=== PATIENT | male | born 1950 | race Caucasian/White ===

== ENCOUNTER 2024-05-14 06:51 | Outpatient (OUT) | payer MEDICARE, OTHER, SELFPAY ==
[2024-05-14 07:34] LABS: Basophils Absolute Auto 0.1 10^3/uL (0.0-0.1); Basophils Percent Auto 0.9 % (0.2-2.0); Eosinophils Absolute Auto 0.4 10^3/uL (0.0-0.7); Eosinophils Percent Auto 5.3 % (0.9-7.0); Hematocrit 44.6 % (42.0-54.0); Hemoglobin 14.6 g/dL (14.0-18.0); Immature Granulocytes Abs Auto 0.02 10^3/uL (0.00-0.03); Immature Granulocytes Pct Auto 0.2 % (0.0-0.5); Lymphocytes Absolute Auto 2.5 10^3/uL (1.2-3.8); Mean Corpuscular HGB Conc 32.7 g/dL (29.9-35.2); Mean Corpuscular Volume 100.9 fL (80.0-94.0); Mean Platelet Volume 9.8 fL (9.5-13.5); Monocytes Percent Auto 12.8 % (1.7-12.0); Neutrophils Absolute Auto 4.1 10^3/uL (1.4-6.5); Neutrophils Percent Auto 49.8 % (43.0-75.0); Platelet Count 298 10^3/uL (150-450); Red Blood Count 4.42 10^6/uL (4.70-6.10); Red Cell Distribution Width 13.2 % (11.0-15.0); White Blood Count 8.1 10^3/uL (4.0-11.0)
[2024-05-14 08:45] LABS: Estimated Average Glucose 108 mg/dL; Glycohemoglobin A1C 5.4 % (4.5-6.2)
[2024-05-14 09:29] LABS: Alanine Aminotransferase 25 U/L (16-63); Albumin Globulin Ratio 0.8; Albumin Level 3.7 g/dL (3.4-5.0); Alkaline Phosphatase 76 U/L (46-116); Aspartate Amino Transferase 16 U/L (15-37); BUN Creatinine Ratio 20.4; Bilirubin Total 0.7 mg/dL (0.2-1.0); Calcium 9.1 mg/dL (8.5-10.1); Carbon Dioxide 28.4 mmol/L (21.0-32.0); Chloride 105 mmol/L (98-107); Chol HDL Ratio 2.5; Cholesterol 146 mg/dL (<=200); Estimated GFR (African America >60 (>=60); Estimated GFR (Non-African Ame >60 (>=60); Free T3 2.92 pg/mL (2.18-3.98); Globulin 4.4 g/dL; Glucose 101 mg/dL (74-106); HDL Cholesterol 58 mg/dL (40-60); LDL Cholesterol Calculated 65.8 mg/dL; Potassium 4.4 mmol/L (3.5-5.1); Sodium 142 mmol/L (136-145); Thyroid Stimulating Hormone 1.505 uIU/mL (0.358-3.740); Total Protein 8.1 g/dL (6.4-8.2); Triglycerides 111 mg/dL (<=150); VLDL CHOLESTEROL 22.2 mg/dL
[2024-05-14 09:39] LABS: Free T4 0.89 ng/dL (0.76-1.46)
[2024-05-14 14:45] LABS: Internal Control Within Normal Limits; Occult Blood Negative
[2024-05-15 01:07] LABS: PSA, Free <0.02 ng/mL; Prostate Specific Ag <0.1 ng/mL (0.0-4.0)
== END 2024-05-14 06:52 | disposition home or self-care (01) ==
LOC: LAB 06:57
PROVIDERS: PCP Family Medicine; Visit Provider Family Medicine
DX: Z01.89 Encounter for other specified special examinations (principal); R53.83 Other fatigue; I10 Essential (primary) hypertension; E78.5 Hyperlipidemia, unspecified; R73.09 Other abnormal glucose; Z12.12 Encounter for screening for malignant neoplasm of rectum
CPT/HCPCS: 36415; 80053; 80061; 83036; 84153; 84154; 84439; 84443; 84481; 85025; G0328

== ENCOUNTER 2024-10-26 09:30 | Outpatient (OUT) | payer MEDICARE, OTHER, SELFPAY ==
[2024-10-26 10:05] LABS: Ammonia 25 umol/L (11-32)
[2024-10-26 10:19] LABS: Basophils Absolute Auto 0.1 10^3/uL (0.0-0.1); Basophils Percent Auto 0.7 % (0.2-2.0); Eosinophils Absolute Auto 0.2 10^3/uL (0.0-0.7); Eosinophils Percent Auto 1.7 % (0.9-7.0); Hematocrit 45.4 % (42.0-54.0); Immature Granulocytes Abs Auto 0.22 10^3/uL (0.00-0.03); Immature Granulocytes Pct Auto 1.9 % (0.0-0.5); Lymphocytes Percent Auto 17.7 % (20.5-60.0); Mean Corpuscular HGB Conc 30.8 g/dL (29.9-35.2); Mean Corpuscular Hemoglobin 31.6 pg (25.9-34.0); Mean Corpuscular Volume 102.5 fL (80.0-94.0); Monocytes Absolute Auto 0.9 10^3/uL (0.3-0.8); Monocytes Percent Auto 7.7 % (1.7-12.0); Neutrophils Absolute Auto 8.1 10^3/uL (1.4-6.5); Neutrophils Percent Auto 70.3 % (43.0-75.0); Platelet Count 603 10^3/uL (150-450); Red Blood Count 4.43 10^6/uL (4.70-6.10); Red Cell Distribution Width 13.8 % (11.0-15.0); White Blood Count 11.5 10^3/uL (4.0-11.0)
[2024-10-26 10:23] LABS: Bilirubin Urine SMALL (NEGATIVE); Blood Urine NEGATIVE (NEGATIVE); Clarity Urine CLEAR (CLEAR); Color Urine DK. YELLOW (YELLOW); Glucose Urine UA NEGATIVE (NEGATIVE); Ketones Urine NEGATIVE (NEGATIVE); Leukocyte Esterase Urine NEGATIVE (NEGATIVE); Nitrite Urine NEGATIVE (NEGATIVE); Protein Urine TRACE mg/dL (NEG/TRACE); Specific Gravity Urine 1.025 (1.005-1.025); Urobilinogen Urine 0.2 EU/dL (0.2-1.0); pH Urine 5.5 (5.0-9.0)
[2024-10-26 10:32] LABS: Bacteria Urine SMALL #/HPF (NONE SEEN)
[2024-10-26 10:33] LABS: Cast Seen? SEEN #/LPF (NONE SEEN); Crystals Seen? None Seen #/HPF (None Seen); Mucus Urine MODERATE (NONE SEEN); RBC Urine 0-2 #/HPF (0-2); Squamous Epithelial Cell Urine NONE SEEN #/LPF (NONE/RARE); WBC Urine 0-2 #/HPF (NONE SEEN)
[2024-10-26 10:34] LABS: Fine Granular Casts Urine FEW; Hyaline Casts Urine MODERATE
[2024-10-26 11:04] LABS: Alanine Aminotransferase 106 U/L (16-63); Albumin Globulin Ratio 0.6; Albumin Level 3.1 g/dL (3.4-5.0); Alkaline Phosphatase 784 U/L (46-116); Amylase 85 U/L (25-115); Aspartate Amino Transferase 65 U/L (15-37); Bilirubin Total 1.6 mg/dL (0.2-1.0); Calcium 9.6 mg/dL (8.5-10.1); Carbon Dioxide 26.2 mmol/L (21.0-32.0); Chloride 102 mmol/L (98-107); Estimated GFR (African America >60 (>=60 mL/min/1.73m^2); Estimated GFR (Non-African Ame >60 (>=60 mL/min/1.73m^2); Free T3 2.56 pg/mL (2.18-3.98); Globulin 5.6 g/dL; Glucose 113 mg/dL (74-106); Potassium 4.2 mmol/L (3.5-5.1); Sodium 137 mmol/L (136-145); Thyroid Stimulating Hormone 1.131 uIU/mL (0.358-3.740); Total Protein 8.7 g/dL (6.4-8.2)
[2024-10-26 11:08] LABS: Prostate Specific Antigen Scrn <0.13 ng/mL (<=4.00)
[2024-10-27 17:27] LABS: BOX Test Reference Lab FIRELANDS
== END 2024-10-26 09:31 | disposition home or self-care (01) ==
LOC: LAB 09:33
PROVIDERS: PCP Family Medicine; Visit Provider Family Medicine
DX: R17 Unspecified jaundice (principal); R53.83 Other fatigue; I10 Essential (primary) hypertension; E03.9 Hypothyroidism, unspecified; Z12.5 Encounter for screening for malignant neoplasm of prostate
CPT/HCPCS: 36415; 80053; 81001; 82140; 82150; 83690; 84436; 84443; 84481; 85025; 87086; G0103

== ENCOUNTER 2024-10-30 07:12 | Outpatient (OUT) | payer MEDICARE, OTHER, SELFPAY ==
--- OUTSIDE RECORDS SUMMARY | 2024-10-30 07:17 | XMS_ITS | CCD ---
Author Organization [facility] Care Team Providers Care Violin Teacher Name Role Phone Merline Fuller MD Primary Care Provider [phone] OSMAR NORIEGA Admitting Unavailable OSMAR NORIEGA Attending Unavailable EBONYY ., DR RICK Primary Care Unavailable OSMAR NORIEGA Consulting Unavailable HOY ., DR RICK Admitting Unavailable HOY ., DR RICK Attending Unavailable HOY ., DR RICK Primary Care Unavailable HOY ., DR RICK Consulting Unavailable Merline Fuller MD Primary Care Provider [phone] ALINA MERLINE M Primary Care Unavailable EDNA, SHAJI E Referring Unavailable HOY, MERLINE M Primary Care Unavailable HOY, MERLINE M Primary Care Unavailable HOY, MERLINE M Primary Care Unavailable EDNA, SHAJI E Referring Unavailable GARCIA, LUMA M Referring Unavailable HOY, MERLINE M Primary Care Unavailable GARCIA, LUMA M Referring Unavailable HOY, MERLINE M Primary Care Unavailable EDNA, SHAJI E Referring Unavailable HOY, MERLINE M Primary Care Unavailable GARCIA, LUMA M Attending Unavailable HOY, MERLINE M Primary Care Unavailable EDNA, SHAJI E Referring Unavailable HOY, MERLINE M Primary Care Unavailable GARCIA, LUMA M Attending Unavailable HOY, MERLINE M Primary Care Unavailable EDNA, SHAJI E Attending Unavailable HOY, MERLINE M Primary Care Unavailable GARCIA, LUMA M Referring Unavailable HOY, MERLINE M Primary Care Unavailable GARCIA, LUMA M Referring Unavailable HOY, MERLINE M Primary Care Unavailable GARCIA, LUMA M Referring Unavailable HOY, MERLINE M Primary Care Unavailable EDNA, SHAJI E Attending Unavailable EDNA, SHAJI E Admitting Unavailable HOY, MERLINE M Primary Care Unavailable EDNA, SHAJI E Referring Unavailable HOY, MERLINE M Primary Care Unavailable VALERIA FARMER Referring Unavailable HOY, MERLINE M Primary Care Unavailable MERLINE FULLER Primary Care Unavailable SHAJI BISHOP Attending Unavailable SHAJI BISHOP Admitting Unavailable MERLINE FULLER M Primary Care Unavailable MERLINE FULLER M Primary Care Unavailable SHAJI BISHOP Referring Unavailable MERLINE FULLER M Primary Care Unavailable SHAJI BISHOP Attending Unavailable LUMA GARCIA M Referring Unavailable MERLINE FULLER M Primary Care Unavailable LUMA GARCIA M Referring Unavailable MERLINE FULLER Primary Care Unavailable Medications Current Medications Medication Drug Class(es) Dates Sig (Normalized) Sig (Original) acetaminophen 500 mg oral tablet (4 sources) Start: 09-05-2023 End: 09-19-2023 take 2 tablets by mouth every eight hours as needed acetaminophen (TYLENOL EXTRA STRENGTH) 500 mg tablet Take 2 tablets by mouth every 8 hours as needed for pain or fever for up to 14 days. 60 tablet 0 09/05/2023 09/19/2023 Active Start: 05-07-2023 End: 05-21-2023 take 2 tablets by mouth every eight hours acetaminophen (TYLENOL EXTRA STRENGTH) 500 mg tablet Take 2 tablets by mouth every 8 hours for 14 days. 84 tablet 0 05/07/2023 05/21/2023 Active Comment on above: Take 2 tablets by mo ut every 8 hours for 14 days. Take 2 tablets by mo uth every 8 hours as needed for pain or fever for up to 14 days. amLODIPine 10 mg oral tablet (9 sources) Dihydropyridine Calcium Channel Meena Start: 3 take 1 tablet by mouth once daily amLODIPine (NORVASC) 10 mg tablet Take 10 mg by mouth once daily. 0 08/20/2023 Active Comment on above: Take 10 mg by mouth once daily. aspirin 81 mg delayed release oral tablet (12 sources) Platelet Aggregation Inhibitor, Nonsteroidal Anti-inflammatory Drug Start: 3 End: 3 take 1 tablet by mouth twice daily aspirin, enteric coated (ECOTRIN LOW STRENGTH) 81 mg EC tablet Take 1 tablet by mouth two times a day. 60 tablet 0 09/05/2023 Active Start: 05-07-2023 End: 08-29-2023 take 1 tablet by mouth twice daily aspirin, enteric coated (ECOTRIN LOW STRENGTH) 81 mg EC tablet Take 1 tablet by mouth twice daily. 70 tablet 0 05/07/2023 08/29/2023 Discontinued (Course of therapy completed) Comment on above: Take 1 tablet by lia twice daily. Take 1 tablet by lia two times a day. atenolol 50 mg oral tablet (20 sources) beta-Adrenergic Meena take 1 tablet by mouth once daily take 1 tablet by mouth once ranjan y Comment on above: Take 1 tablet by lia once daily. Unknown Dosage. atorvastatin 40 mg oral tablet (20 sources) HMG-CoA Reductase Inhibitor Start: atorvastatin (LIPITOR) 40 mg tablet Take 40 mg by mouth. 0 07/23/2022 Active Comment on above: Take 40 mg by mouth. bisacodyl 5 mg delayed release oral tablet (1 source) Stimulant Laxative Start: End: take 1 tablet by mouth once daily as needed for constipation bisacodyl EC (DULCOLAX) 5 mg EC tablet Take 1 tablet by mouth once daily as needed for constipation for up to 14 days. 14 tablet 0 05/07/2023 05/21/2023 Active Comment on above: Take 1 tablet by lia once daily as needed for constipation for up to 14 days. docusate sodium 100 mg oral capsule (4 sources) Start: End: take 1 capsule by mouth twice daily docusate sodium (COLACE) 100 mg capsule Take 1 capsule by mouth two times a day. 60 capsule 0 09/05/2023 10/05/2023 Active Comment on above: Take 1 capsule by mo [facility] two times a day. Famotidine (20 sources) Histamine-2 Receptor Antagonist take 1 tablet by mouth once daily Comment on above: Take 1 tablet by lia once daily. Unknown Dosage. lisinopril 40 mg oral tablet (20 sources) Angiotensin Converting Enzyme Inhibitor Start: lisinopril (ZESTRIL) 40 mg tablet Take 40 mg by mouth. 0 07/23/2022 Active Comment on above: Take 40 mg by mouth. meloxicam 15 mg oral tablet (3 sources) Nonsteroidal Anti-inflammatory Drug Start: End: take 1 tablet by mouth once daily at mealtime meloxicam (MOBIC) 15 mg tablet Take 1 tablet by mouth daily with food. 30 tablet 2 06/07/2023 07/07/2023 Active Start: 05-07-2023 End: 05-21-2023 take 1 tablet by mouth once daily meloxicam (MOBIC) 7.5 mg tablet Take 1 tablet by mouth once daily for 14 days. 14 tablet 0 05/07/2023 05/21/2023 Active Comment on above: Take 1 tablet by lia th once daily for 14 days. Take 1 tablet by lia th daily with food. multivitamin ORAL tablet (20 sources) take 1 tablet by mouth once daily multivitamin ORAL tablet Take 1 tablet by mouth once daily. 0 Active Comment on above: Take 1 tablet by lia th once daily. mupirocin 0.02 mg/mg topical ointment (2 sources) RNA Synthetase Inhibitor Antibacterial Start: 05-03-20 End: 05-07-20 mupirocin (BACTROBAN) 2 % ointment Place a dab on a q-tip and wipe inside each nostril twice daily for five days and then morning of your surgery. 1 g 0 05/03/2023 05/07/2023 Active Comment on above: Place a dab on a q-t ip and wipe inside each nostril twice daily for five days and then morning of your surgery. oxyCODONE hydrochloride 5 mg oral tablet (11 sources) Opioid Agonist Start: 09-16-20 End: 09-23-20 take 1 tablet by mouth every four hours as needed oxyCODONE IR (ROXICODONE) 5 mg immediate release tablet Indications: Status post total knee replacement, right , Primary osteoarthritis of right knee Take 1-2 tablets by mouth every 4 hours as needed for pain for up to 7 days. 50 tablet 0 09/16/2023 09/23/2023 Active Start: 09-10-2023 End: 09-17-2023 oxyCODONE IR (ROXICODONE) 5 mg immediate release tablet Indications: Status post total knee replacement, right , Primary osteoarthritis of right knee Take 1-2 tablets by mouth every 4 hours as needed for pain for up to 7 days. Do not start before September 10, 2023. 42 tablet 0 09/10/2023 09/16/2023 Discontinued Start: 09-05-2023 End: 09-09-2023 take 1 tablet by mouth every four hours as needed oxyCODONE IR (ROXICODONE) 5 mg immediate release tablet Indications: Status post total knee replacement, right , Primary osteoarthritis of right knee Take 1 to 2 tablets by mouth every 4 hours as needed for pain for up to 7 days. 42 tablet 0 09/05/2023 09/09/2023 Discontinued Start: 05-14-2023 End: 08-29-2023 oxyCODONE IR (ROXICODONE) 5 mg immediate release tablet Indications: Primary osteoarthritis of left knee , Status post left knee replacement Take one to two tablets by mouth every four hours as needed for pain Do not start before May 14, 2023. 55 tablet 0 05/14/2023 08/29/2023 Discontinued (Course of therapy completed) Start: 05-07-2023 End: 05-21-2023 take 1 tablet by mouth every four hours as needed oxyCODONE IR (ROXICODONE) 5 mg immediate release tablet Indications: Primary osteoarthritis of left knee Take 1 to 2 tablets by mouth every 4 hours as needed for pain for up to 14 days. 55 tablet 0 05/07/2023 05/21/2023 Active Comment on above: Take 1 to 2 tablets by mouth every 4 hours as needed for pain for up to 14 days. Take one to two tabl ets by mouth every four hours as needed for pain Do not start before May 14, 2023. Take 1 to 2 tablets by mouth every 4 hours as needed for pain for up to 7 days. Take 1-2 tablets by mouth every 4 hours as needed for pain for up to 7 days. Do not start before September 10, 2023. Take 1-2 tablets by mouth every 4 hours as needed for pain for up to 7 days. Completed/Discontinued Medications Medication Drug Class(es) Dates Sig (Normalized) Sig (Original) AMLODIPINE BESYLATE/BENAZEPRIL (LOTREL ORAL) (16 sources) End: 08-29-2023 take 1 tablet by mouth once daily take 1 tablet by mouth once ranjan y Comment on above: Take 1 tablet by lia th once daily. Unknown Dosage. glucosamine sulfate 500 mg oral tablet (16 sources) End: 08-29-20 take 1 tablet by mouth once daily Glucosamine Sulfate 500 mg tab Take 1 tablet by mouth once daily. 0 08/29/2023 Discontinued (Discontinued by Patient) Comment on above: Take 1 tablet by lia th once daily. ondansetron 4 mg disintegrating oral tablet (6 sources) Serotonin-3 Receptor Antagonist Start: 05-07-20 End: 08-29-20 take 1 tablet by mouth every eight hours as needed ondansetron orally disintegrating (ZOFRAN ODT) 4 mg disintegrating tablet Dissolve 1 tablet on the tongue every 8 hours as needed for nausea/vomiting. 20 tablet 0 05/07/2023 08/29/2023 Discontinued (Course of therapy completed) Comment on above: Dissolve 1 tablet on the tongue every 8 hours as needed for nausea/vomiting. perflutren lipid microspheres 1.3 mL in NaCl (PF) 0.9% 10 mL injection (DEFINITY) (12 sources) Start: 04-29-20 End: 08-29-20 perflutren lipid microspheres 1.3 mL in NaCl (PF) 0.9% 10 mL injection (DEFINITY) Start: 04-29-2023 End: 07-28-2024 perflutren lipid microsphere s 1.3 mL in NaCl (PF) 0.9% 10 mL injection (DEFINITY) rosuvastatin (16 sources) HMG-CoA Reductase Inhibitor End: 08-29-2023 take 1 tablet by mouth once daily take 1 tablet by mouth once ranjan y Comment on above: Take 1 tablet by lia th once daily. Unknown Dosage. 125 ml sodium chloride 9 mg/ml prefilled syringe (12 sources) Start: 04-29-2023 End: 07-28-2024 sodium chloride 0.9 % (flush) 10 mL (BD POSIFLUSH) vardenafil 20 mg oral tablet (16 sources) Phosphodiesterase 5 Inhibitor Start: 01-28-2012 End: 08-29-2023 Vardenafil HCl (LEVITRA) 20 mg ORAL tablet Take 20 mg by mouth as needed. 30-60 minutes before sexual intercourse. 10 tablet 10 01/28/2012 08/29/2023 Discontinued (Discontinued by Patient) Comment on above: Take 20 mg by mouth as needed. 30-60 minutes before sexual intercourse. Problems Active Problems Problem Classification Problem Date Documented Date Episodic/Chronic Aortic; peripheral; and visceral artery aneurysms (11 sources) Dilatation of aorta; Translations: [Aortic ectasia, unspecified site] Onset: 08-29-2023 08-29-2023 Chronic Cancer of prostate (15 sources) Malignant tumor of prostate; Translations: [Malignant neoplasm of prostate] Onset: 08-20-2011 08-20-2011 Chronic Cataract (4 sources) Combined forms of age-related cataract, right eye; Translations: [COMBINE FORMS AGE-RELATE CAT RT EYE] Onset: 02-21-2023 Chronic Deficiency and other anemia (2 sources) Anemia; Translations: [Anemia, unspecified] Episodic Disorders of lipid metabolism (20 sources) Hyperlipidemia; Translations: [Hyperlipidemia, unspecified] Onset: 11-13-2011 11-13-2011 Chronic Esophageal disorders (20 sources) Gastroesophageal reflux disease; Translations: [Gastro-esophageal reflux disease without esophagitis] Onset: 11-13-2011 11-13-2011 Chronic Essential hypertension (20 sources) Hypertensive disorder; Translations: [Essential (primary) hypertension] Onset: 11-13-2011 11-13-2011 Chronic Heart valve disorders (11 sources) Tricuspid valve regurgitation; Translations: [Rheumatic tricuspid insufficiency] Onset: 08-29-2023 08-29-2023 Chronic Malaise and fatigue (1 source) Other fatigue; Translations: [OTHER FATIGUE] Onset: 03-02-2023 Episodic Osteoarthritis (20 sources) Osteoarthritis of left knee joint; Translations: [Unilateral primary osteoarthritis, left knee] Onset: 11-13-2011 Chronic Other connective tissue disease (7 sources) History of total knee arthroplasty; Translations: [Presence of left artificial knee joint] 06-07-2023 Chronic Other connective tissue disease (2 sources) Presence of right artificial knee joint; Translations: [S/P total knee arthroplasty, right] Onset: 09-04-2023 Chronic Other nervous system disorders (1 source) Other chronic pain; Translations: [Chronic pain of right knee] Onset: 08-29-2023 Chronic Other nervous system disorders (1 source) Acute postoperative pain; Translations: [Other acute postprocedural pain] 06-07-2023 Episodic Other screening for suspected conditions (not mental disorders or infectious disease) (2 sources) Encounter for screening for malignant neoplasm of prostate; Translations: [Encounter for screening for malignant neoplasm of rectum] Onset: 03-02-2023 Episodic Pulmonary heart disease (11 sources) Pulmonary hypertension; Translations: [Pulmonary hypertension, unspecified] Onset: 08-29-2023 08-29-2023 Chronic Residual codes; unclassified (2 sources) Pain; Translations: [Pain, unspecified] Episodic Past or Other Problems Problem Classification Problem Date Documented Da te Episodic/Chronic Cancer of prostate (11 sources) History of malignant neoplasm of prostate; Translations: [Personal history of malignant neoplasm of prostate] Onset: 08-20-2011 08-29-2023 Episodic Deficiency and other anemia (2 sources) Anemia, unspecified; Translations: [ANEMIA UNSPECIFIED] Onset: 03-02-2023 Episodic Other non-traumatic joint disorders (2 sources) Pain in right knee; Translations: [Pain in joint, lower leg] Onset: 08-29-2023 08-28-2023 Episodic Results Test Name Value Interpretation Reference Range Facility CNOVon 04-02-2024 CNOV Office Visit ([facility] ) RONNIE ABEBE ([id number]) 1950 M Date Time Provider Department 04/02/24 9:45 AM SHAJI BISHOP During your visit today, we recorded the following information about you: Shaji Bishop MD 04/02/2024 10:36 AM Signed Ortho Knee Follow Up Note Narrative Referring Provider: No referring provider defined for this encounter. PCP: Merline Fuller MD ====== IMPRESSION/PLAN: ====== 74 year old s/p Right 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 completed on 09/04/2023. Recent Surgeries this specialty 09/04/2023 (6mo) ROBOTIC ASSISTED TOTAL KNEE ARTHROPLASTY; COMPUTER ASSIST MUSCULOSKETAL SURG NAVIGATION ORTHO PROCED W/IMAGE GUIDANCE BASED ON CT/MRI IMAGES (Right; Right) Shaji Bishop MD; Erin Paez DO; Michelet Johnston MD - Posted 05/07/2023 (10mo) ROBOTIC ASSISTED TOTAL KNEE ARTHROPLASTY; COMPUTER ASSIST MUSCULOSKETAL SURG NAVIGATION ORTHO PROCED W/IMAGE GUIDANCE BASED ON CT/MRI IMAGES (Left; Left) Shaji Bishop MD; Malcom Azul MD; Blanco Meyer MD - Posted PAIN EVALUATION No data found in the last 1 encounters. IMPRESSION: No complaints or limitations At normal post-operative stage of recovery. PLAN: Continue current conservative treatment. Rest, Ice, Compression, Elevation PRN. Patient Reassurance: Patient reassured and supported. All questions answered. Follow up 1 year X-Rays Needed Ronnie Abebe presents today for a an intermediate post-op visit ACTIVE PROBLEM LIST History of Prostate Cancer Hypertension Hyperlipidemia Gerd (Gastroesophageal Reflux Disease) Arthritis Primary Osteoarthritis of Left Knee Tricuspid Regurgitation Pulmonary Hypertension (Hcc) Dilation of Aorta (Hcc) Primary Osteoarthritis of Right Knee Status post op: BMI: There is no height or weight on file to calculate BMI. Post-operative recovery was complicated by uneventful/none. Readmission(s) since surgery (90 days post)? No ED Visits AND Hospitalizations - Last 180 days None Patient rates their condition as improving. Does the patient still experience pain? No Post Op discharge patient location: in home. Functional Assessment is as follows: completed course of therapy and completed home PT. Functional difficulties: None. Pain Medication: None Currently Ambulating with: no ambulation aides EXAM: POST OP KNEE Bilateral Post-Operative Knee Ambulates with a: normal gait. SKIN: Appropriate postop appearance and No evidence of erythema, warmth, discharge or drainage. LEFT KNEE: Range of motion is 0 degrees in extension and 120 degrees of flexion. Extension La degrees Pain with ROM:No There is None effusion. Mal-alignment: No Tender to the palpation of None Neurovascular Status: Sensation Intact, Moves foot and ankle up AND down, and 2+ dorsalis pedis Stability:Anterior/Pos terior- Yes, stable and Varus/Valgus- Yes, stable Quad strength: intact RIGHT KNEE: Range of motion is 0 degrees in extension and 120 degrees of flexion. Extension La degrees Pain with ROM:No There is None effusion. Mal-alignment: No Tender to the palpation of None Neurovascular Status: Sensation Intact, Moves foot and ankle up AND down, and 2+ dorsalis pedis Stability:Anterior/Pos terior- Yes, stable and Varus/Valgus- Yes, stable Quad strength: intact Imagin. Implants are well aligned. Implants are well fixed. There is no evidence of loosening. The History, Exam, and Plan as documented by the Orthopaedic surgery resident/fellow/physic cecile gallery assistant was reviewed and discussed in detail. We have discussed the case and management of the patient's care, and I agree with the above documented information and plan. Provider: Shaji Bishop MD Completed by: Shaji Bishop MD. Allergies As of Date: 04/02/2024 (No Known Allergies) Date Reviewed: 04/02/2024 Reviewed by: Josselyn Loera OCCA - Fully Assessed Primary Visit Diagnosis:S/P total knee arthroplasty, right [Z96.651] Other Visit Diagnosis:Status post left knee replacement [Z96.652] Prescriptions as of 04/02/2024 - aspirin, enteric coated (ECOTRIN LOW STRENGTH) 81 mg EC tablet Take 1 tablet by mouth two times a day. - amLODIPine (NORVASC) 10 mg tablet Take 10 mg by mouth once daily. - atorvastatin (LIPITOR) 40 mg tablet Take 40 mg by mouth. - lisinopril (ZESTRIL) 40 mg tablet Take 40 mg by mouth. - atenolol (TENORMIN) 50 mg tablet Take 1 tablet by mouth once daily. Unknown Dosage. - FAMOTIDINE (PEPCID ORAL) Take 1 tablet by mouth once daily. Unknown Dosage. - multivitamin ORAL tablet Take 1 tablet by mouth once daily. Meds Comments as of 11/22/2011: The patient is taking Toprol but unsure of the dose. Audra Carl Ma Problem List As (more content not included)... Normal [facility] XR KNEE 3V AP/LAT/ALVARO BILon 04-02-2024 XR KNEE 3V AP/LAT/ALVARO TAMMY * * *Final Report* * * DATE OF EXAM: Apr 02 2024 9:50AM AFR [id number] - XR KNEE 3V AP/LAT/ALVARO TAMMY / PROCEDURE REASON: S/P total knee arthroplasty, right * * * * Physician Interpretation * * * * EXAMINATION / TECHNIQUE: XR KNEE 3V AP/LAT/ALVARO TAMMY PATIENT/TECHNOLOGIST PROVIDED HISTORY: FOLLOW UP BILATERAL KNEE REPLACEMENTS CLINICAL INFORMATION ( PROVIDED BY ORDERING CLINICIAN) : S/P total knee arthroplasty, right COMPARISON: 10/03/2023 RESULT: Postsurgical changes of right total knee arthroplasty with patellar resurfacing. There is no periprosthetic lucency or fracture. Similar appearance of overlying soft tissue swelling with a moderate size joint effusion. No acute fracture or dislocation. IMPRESSION: Right total knee arthroplasty without hardware complication. Manager Completions: [facility] Transcribe Date/Time: Apr 02 2024 9:56A Dictated by : JONNY ROGERS MD This examination was interpreted and the report reviewed and electronically signed by: DIAZ FAN MD on Apr 02 2024 10:00AM EST [id number] Normal [facility] XR Knee - bilateral 3 Viewso n 04-02-2024 IMPRESSION: Right total knee arthroplasty without hardware complication. Manager Completions: [facility] Transcribe Date/Time: Apr 02 2024 9:56A Dictated by : JONNY ROGERS MD This examination was interpreted and the report reviewed and electronically signed by: DIAZ FAN MD on Apr 02 2024 10:00AM EST DIVISION OF RADIOLOGY * * *Final Report* * * DATE OF EXAM: Apr 02 2024 9:50AM AFR [id number] - XR KNEE 3V AP/LAT/ALVARO TAMMY / PROCEDURE REASON: S/P total knee arthroplasty, right * * * * Physician Interpretation * * * * EXAMINATION / TECHNIQUE: XR KNEE 3V AP/LAT/ALVARO TAMMY PATIENT/TECHNOLOGIST PROVIDED HISTORY: FOLLOW UP BILATERAL KNEE REPLACEMENTS CLINICAL INFORMATION ( PROVIDED BY ORDERING CLINICIAN) : S/P total knee arthroplasty, right COMPARISON: 10/03/2023 RESULT: Postsurgical changes of right total knee arthroplasty with patellar resurfacing. There is no periprosthetic lucency or fracture. Similar appearance of overlying soft tissue swelling with a moderate size joint effusion. No acute fracture or dislocation. DIVISION OF RADIOLOGY Provider, [facility] - 04/02/2024 * * *Final Report* * * DATE OF EXAM: Apr 02 2024 9:50AM AFR [id number] - XR KNEE 3V AP/LAT/ALVARO TAMMY / PROCEDURE REASON: S/P total knee arthroplasty, right * * * * Physician Interpretation * * * * EXAMINATION / TECHNIQUE: XR KNEE 3V AP/LAT/ALVARO TAMMY PATIENT/TECHNOLOGIST PROVIDED HISTORY: FOLLOW UP BILATERAL KNEE REPLACEMENTS CLINICAL INFORMATION ( PROVIDED BY ORDERING CLINICIAN) : S/P total knee arthroplasty, right COMPARISON: 10/03/2023 RESULT: Postsurgical changes of right total knee arthroplasty with patellar resurfacing. There is no periprosthetic lucency or fracture. Similar appearance of overlying soft tissue swelling with a moderate size joint effusion. No acute fracture or dislocation. IMPRESSION IMPRESSION: Right total knee arthroplasty without hardware complication. Manager Completions: [facility] Transcribe Date/Time: Apr 02 2024 9:56A Dictated by : JONNY ROGERS MD This examination was interpreted and the report reviewed and electronically signed by: DIAZ FAN MD on Apr 02 2024 10:00AM EST [facility] Radiology Study observation (narrative) [facility] XR Knee - bilateral 3 ViewsO rdered By: [facility] Provider on 04-02-2024 [facility] CNOVon 10-03-2023 CNOV Office Visit ([facility] ) RONNIE ABEBE ([id number]) 1950 M Date Time Provider Department 10/03/23 8:15 AM LUMA GARCIA During your visit today, we recorded the following information about you: Luma Garcia PA-C 10/03/2023 11:08 AM Signed Ortho Knee Follow Up Note Narrative Referring Provider: No referring provider defined for this encounter. PCP: Merline Fuller MD ====== IMPRESSION/PLAN: ====== 73 year old s/p Right 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 completed on 09/04/2023. Recent Surgeries this specialty 09/04/2023 (4w, 1d) ROBOTIC ASSISTED TOTAL KNEE ARTHROPLASTY; COMPUTER ASSIST MUSCULOSKETAL SURG NAVIGATION ORTHO PROCED W/IMAGE GUIDANCE BASED ON CT/MRI IMAGES (Right; Right) Shaji Bishop MD; Erin Paez DO; Michelet Johnston MD - Posted 05/07/2023 (4mo) ROBOTIC ASSISTED TOTAL KNEE ARTHROPLASTY; COMPUTER ASSIST MUSCULOSKETAL SURG NAVIGATION ORTHO PROCED W/IMAGE GUIDANCE BASED ON CT/MRI IMAGES (Left; Left) Shaji Bishop MD; Malcom Azul MD; Blanco Meyer MD - Posted PAIN EVALUATION No data found in the last 1 encounters. IMPRESSION: Excellent early outcome Incision well healed 3-120 degrees of ROM PLAN: Continue current conservative treatment. Order for outpatient PT Demontrated exercises for extension Ok to progress to WBAT Patient Reassurance: Patient reassured and supported. All questions answered. Follow up 3 months No X-Rays Needed Ronnie Abebe presents today for a a routine 1st post-op visit ACTIVE PROBLEM LIST History of Prostate Cancer Hypertension Hyperlipidemia Gerd (Gastroesophageal Reflux Disease) Arthritis Primary Osteoarthritis of Left Knee Tricuspid Regurgitation Pulmonary Hypertension (Hcc) Dilation of Aorta (Hcc) Primary Osteoarthritis of Right Knee Status post op: BMI: There is no height or weight on file to calculate BMI. Post-operative recovery was complicated by uneventful/none. Readmission(s) since surgery (90 days post)? No ED Visits AND Hospitalizations - Last 180 days 09/04/23 Shaji Bishop MD, [id number] Status post total knee replacement, right ..., Admission (Discharged) 05/07/23 Shaji Bishop MD, [id number] Primary osteoarthritis of left knee, Admission (Discharged) Patient rates their condition as improving. Does the patient still experience pain? Onset: yes. Location: Right knee. Frequency: occasionally. Pain scale: 2. Pain character: ache. Relieving factors: Rest, Ice, Sitting, Pain medication, Cane, and Walker. Aggravating factors: Prolonged standing Post Op discharge patient location: in home. Functional Assessment is as follows: completed home PT and has already started outpatient PT as of this visit. Functional difficulties: Interferes with sleep. Pain Medication: Non-narcotic Currently Ambulating with: a cane and a walker EXAM: POST OP KNEE Right Post-Operative Knee Ambulates with a uses: a walker. SKIN: Appropriate postop appearance and No evidence of erythema, warmth, discharge or drainage. Range of motion is lacking a few degrees secondary to tight hamstrings degrees in extension and 120 degrees of flexion. Extension La degrees Pain with ROM: No There is Slight effusion. Mal-alignment: No Tender to the palpation of None Neurovascular Status: Sensation Intact, Moves foot and ankle up AND down, and 2+ dorsalis pedis Stability:Anterior/Pos terior- Yes, stable and Varus/Valgus- Yes, stable Quad strength: normal Imagin. Implants are well aligned. Implants are well fixed. There is no evidence of loosening. Provider: Luma Garcia PA-C Completed by: Luma Garcia PA-C Allergies As of Date: 10/03/2023 (No Known Allergies) Date Reviewed: 10/03/2023 Reviewed by: Josselyn Loera OCCA - Fully Assessed Primary Visit Diagnosis:S/P total knee arthroplasty, right [Z96.651] Order(s):CONSULT TO PHYSICAL THERAPY [9032] Order #: [id number]: 1 FUTURE XR KNEE POST OP 3V AP/LAT/MERCHANT BILATERAL [[id number]] Order #: [id number] FUTURE Prescriptions as of 10/03/2023 - aspirin, enteric coated (ECOTRIN LOW STRENGTH) 81 mg EC tablet Take 1 tablet by mouth two times a day. - docusate sodium (COLACE) 100 mg capsule Take 1 capsule by mouth two times a day. - amLODIPine (NORVASC) 10 mg tablet Take 10 mg by mouth once daily. - atorvastatin (LIPITOR) 40 mg tablet Take 40 mg by mouth. - lisinopril (ZESTRIL) 40 mg tablet Take 40 mg by mouth. - atenolol (TENORMIN) 50 mg tablet Take 1 tablet by mouth once daily. Unknown Dosage. - FAMOTIDINE (PEPCID ORAL) Take 1 tablet by mouth once daily. Unknown Dosage. - multivitamin ORAL tablet Take 1 tablet by mouth once daily. Meds Comments as of 11/22/2011: The patient is taking Toprol bu (more content not included)... [facility] XR KNEE 3V AP/LAT/MERCHANT R Ton 10-03-2023 XR KNEE 3V AP/LAT/MERCHANT RT * * *Final Report* * * DATE OF EXAM: Oct 03 2023 8:04AM AFR 5209 - XR KNEE 3V AP/LAT/MERCHANT RT / PROCEDURE REASON: Primary osteoarthritis of right knee * * * * Physician Interpretation * * * * EXAMINATION / TECHNIQUE: XR KNEE 3V AP/LAT/MERCHANT RT HISTORY: RIGHT KNEE 4 WEEK POST OP Primary osteoarthritis of right knee COMPARISON: 08/29/2023. RESULT: Status post right total knee arthroplasty with orthopedic hardware in standard position and alignment. There is no acute fracture. Bony alignment is preserved. IMPRESSION: Right total knee arthroplasty without complication. Manager Completions: VI Transcribe Date/Time: Oct 03 2023 8:06A Dictated by : OSMAR ESPINOZA MD This examination was interpreted and the report reviewed and electronically signed by: OSMAR ESPINOZA MD on Oct 03 2023 3:26PM EST [id number] Normal [facility] CNCOon 09-10-2023 CNCO Letter Text Normal [facility] CNPNon 09-09-2023 CNPN Telephone (ORTHMN) RONNIE ABEBE ([id number]) 1950 M Date Time Provider Department 09/09/23 NICOLE MEEKSMN During your visit today, we recorded the following information about you: Nicole Meeks RN 09/09/2023 3:15 PM Signed Patient has been identified by name and date of : Yes, Provider Nicole Meeks RN Date 09/09/2023 Time 3:03pm Surgeon Dr. Bishop Surgery Right 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 Date of Surgery 09/04/2023 Date of Discharge 09/05/2023 Support person at home yes Weight Bearing status: PWB Activity Up with Walker, Home Health Pain Level on a pain scale 0-10 10/10 when walking Current pain regimen Tylenol as ordered, Oxycodone, usually two tablets every four hours. He will need a refill tomorrow, will pend to Luma. Reminded how to take two for severe pain, one for moderate and spread dosing as pain improves. Icing and Elevating Doing already, reviewed how to properly ice and elevate and advised doing so for 20-30 minutes at least 6 times per day Constipation Had BM yesterday Blood Thinner Aspirin as ordered. Reviewed SANDS of DVT/PE Incision reviewed incision care, when and how to shower and ANDS of infection Dressings Clean, Dry, Intact Patient concerns None Follow up appointments 10/03/2023 Patient aware Nicole Meeks RN Allergies As of Date: 09/09/2023 (No Known Allergies) Date Reviewed: 09/04/2023 Reviewed by: Michelet Fairbanks, RN - Fully Assessed Reason for Visit: Post Op [174] Prescriptions as of 09/09/2023 - oxyCODONE IR (ROXICODONE) 5 mg immediate release tablet Take 1 to 2 tablets by mouth every 4 hours as needed for pain for up to 7 days. - acetaminophen (TYLENOL EXTRA STRENGTH) 500 mg tablet Take 2 tablets by mouth every 8 hours as needed for pain or fever for up to 14 days. - aspirin, enteric coated (ECOTRIN LOW STRENGTH) 81 mg EC tablet Take 1 tablet by mouth two times a day. - docusate sodium (COLACE) 100 mg capsule Take 1 capsule by mouth two times a day. - amLODIPine (NORVASC) 10 mg tablet Take 10 mg by mouth once daily. - atorvastatin (LIPITOR) 40 mg tablet Take 40 mg by mouth. - lisinopril (ZESTRIL) 40 mg tablet Take 40 mg by mouth. - atenolol (TENORMIN) 50 mg tablet Take 1 tablet by mouth once daily. Unknown Dosage. - FAMOTIDINE (PEPCID ORAL) Take 1 tablet by mouth once daily. Unknown Dosage. - multivitamin ORAL tablet Take 1 tablet by mouth once daily. Meds Comments as of 11/22/2011: The patient is taking Toprol but unsure of the dose. 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] 08/29/2023 Primary osteoarthritis of right knee [M17.11] 09/04/2023 Encounter Status:Closed by NICOLE MEEKS RN on 09/09/23 Normal [facility] Basic metabolic 2000 panelon 09-05-2023 Anion gap [Moles/Vol] 15 mmol/L Normal 9-18 [facility] Comment on above: Order Comment: Speci men Type: BLOOD SPECIMENOrdering Facility: [facility] Address: [address] [place] [address] Performed By: #### 2 4321-2 ####[facility] LABCLIA [id number] [place] [address] [place] Calcium [Mass/Vol] 9.4 mg/dL Normal 8.5-10.2 [facility] Comment on above: Order Comment: Speci men Type: BLOOD SPECIMENOrdering Facility: [facility] Address: [address] [place] [address] Performed By: #### 2 4321-2 ####[facility] LABCLIA [id number] [place] [address] [place] Chloride [Moles/Vol] 100 mmol/L Normal 97-105 [facility] Comment on above: Order Comment: Speci men Type: BLOOD SPECIMENOrdering Facility: [facility] Address: [address] [place] [address] Performed By: #### 2 4321-2 ####[facility] LABCLIA [id number] [place] [address] [place] CO2 [Moles/Vol] 20 mmol/L Low 22-30 [facility] Comment on above: Order Comment: Speci men Type: BLOOD SPECIMENOrdering Facility: [facility] Address: [address] [place] [address] Performed By: #### 2 4321-2 ####[facility] LABCLIA [id number] [place] [address] [place] Creatinine [Mass/Vol] 0.82 mg/dL Normal 0.73-1.22 [facility] Comment on above: Order Comment: Speci men Type: BLOOD SPECIMENOrdering Facility: [facility] Address: [address] [place] [address] Performed By: #### 2 4321-2 ####[facility] LABCLIA [id number] [place] [address] [place] Creatinine and Glomerular filtration rate.predicted panel (S/P/Bld) 93 mL/min/1.73m??? Normal >=60 [facility] Comment on above: Order Comment: Speci men Type: BLOOD SPECIMENOrdering Facility: [facility] Address: [address] [place] [address] Result Comment: Sarah mated Glomerular Filtration Rate (eGFR) is calculated using the 2020 CKD-EPI creatinine equation. This equation utilizes serum creatinine, sex, and age as parameters. The creatinine assay has traceable calibration to isotope dilution-mass spectrometry. Refer to KDIGO guidelines for clinical interpretation. In patients with unstable renal function, e.g. those with acute kidney injury, the eGFR may not accurately reflect actual GFR. Performed By: #### 2 4321-2 ####[facility] LABIA [id number] [place] [address] [place] Glucose [Mass/Vol] 140 mg/dL High 74-99 [facility] Comment on above: Order Comment: Speci men Type: BLOOD SPECIMENOrdering Facility: [facility] Address: [address] [place] [address] Result Comment: The [place] Diabetes Association (ADA) provides guidance for cutoff values for fasting glucose and random glucose. The ADA defines fasting as no caloric intake for at least 8 hours. Fasting plasma glucose results between 100 to 125 mg/dL indicate increased risk for diabetes (prediabetes). Fasting plasma glucose results greater than or equal to 126 mg/dL meet the criteria for diagnosis of diabetes. In the absence of unequivocal hyperglycemia, results should be confirmed by repeat testing. In a patient with classic symptoms of hyperglycemia or hyperglycemic crisis, random plasma glucose results greater than or equal to 200 mg/dL meet the criteria for diagnosis of diabetes. Reference: Standards of Medical Care in Diabetes 2016, [place] Diabetes Association. Diabetes Care. 2016.39(Suppl 1). Performed By: #### 2 4321-2 ####[facility] LABIA [id number] [place] [address] [place] Potassium [Moles/Vol] 4.4 mmol/L Normal 3.7-5.1 [facility] Comment on above: Order Comment: Winstoni men Type: BLOOD SPECIMENOrdering Facility: [facility] Address: [address] [place] [address] Performed By: #### 2 4321-2 ####[facility] [id number] [place] [address] [place] Sodium [Moles/Vol] 135 mmol/L Low 136-144 [facility] Comment on above: Order Comment: Winstoni men Type: BLOOD SPECIMENOrdering Facility: [facility] Address: [address] [place] [address] Performed By: #### 2 4321-2 ####[facility] LABCLIA [id number] [place] [address] [place] Urea nitrogen [Mass/Vol] 15 mg/dL Normal 9-24 [facility] Comment on above: Order Comment: Speci men Type: BLOOD SPECIMENOrdering Facility: [facility] Address: [address] [place] [address] Performed By: #### 2 4321-2 ####[facility] LABCLIA [id number] [place] [address] [place] CASE MANAGEMon 09-05-2023 CASE MANAGEM HNO ID: [id number] Author: Grant Huerta LSW Service: ? Author Type: Front Office Representative Type: Care Mgt Progress Note Filed: 09/05/2023 9:12 AM Note Text: CARE MANAGEMENT DISCHARGE NOTE SERVICE DATE: September 05, 2023 SERVICE TIME: 9:11 AM Admission Date: 09/04/2023 LOS: 1 day Discharge Arrangement Discharge Arrangement: Home with Home Health Services Arranged Medical Services: Skilled Home Health Care Type: Physical Therapy Provider Name: [facility] Caregiver Assessment Caregiver is ready, willing and able to meet the patient's needs as recommended by the inter-professional team: Yes Name of Caregiver: [facility] Transportation Arrangements Transportation Arrangements: Car Date of Trip: 09/05/23 Destination: home Handoff Communication: Handoff to: Primary Care Physician Primary Care Physician Name/Phone: Merline Fuller MD [phone] Additional Information: N/A Discharge Information Row Name Admission (Current) from 09/04/2023 in [facility]. Patient discharged to home with HC services. Discharge orders sent to . SIGNATURE: JOVANNI Chung PATIENT NAME: Ronnie Abebe DATE: September 05, 2023 TIME: 9:11 AM CONTACT #: [phone] [facility] CASE MGT INIT ASSESon 2022 CASE MGT BOO [place]O HNO ID: [id number] Author: Grant Huerta LSW Service: ? Author Type: Front Office Representative Type: Care Mgt Initial Assessment Filed: 09/05/2023 8:39 AM Note Text: CARE MANAGEMENT: ASSESSMENT AND DISCHARGE PLAN SERVICE DATE: September 05, 2023 SERVICE TIME: 8:38 AM ASSESSMENT COMPLETED BY OUTPATIENT ORTHOPAEDIC DEVELOPMENT AND PLANNING ENGINEER ORTHOPAEDIC COORDINATION OF CARE Pre-Op Assessment Discharge Disposition (Planned): Home with Home Health Discharge Transportation: Car PRIMARY CARE PHYSICIAN: Merline Fuller MD [place] Surgery Date: 09/04/2023 TCI Appointment: 09/04/2023 Joint: Jointtype: Knee Side: right Health Insurance: Medicare or MEDICARE RAILROAD PB ONLY Primary Contact: Extended Emergency Contact Information Primary Emergency Contact: MisMichelleIsabel Mobile Relation: Spouse Have you had joint replacement surgery before?: Yes: Left knee Date: April of 2023 Social: Pre-Hospital Baseline Mental Status: Alert AND Oriented Informant: Self Living Arrangement: Home Who able to assist you at home once you discharge? Spouse Are they available for at least 2 weeks? Yes Stairs: One story home No stairs to enter home Bedroom Location: First Bathroom Location: First Do you have problems that affect your ability to perform normal activities of daily living such as bathing, dressing, or toileting yourself? No = 0 What is your current functional status?: Perform ADLs independently Are you able to afford your medications/Food? Yes Social Determinants of Health Tobacco Use: Low Risk (04/29/2023) Patient History Smoking Tobacco Use: Never Smokeless Tobacco Use: Never Passive Exposure: Never Alcohol Use: Not At Risk (08/21/2023) AUDIT-C Frequency of Alcohol Consumption: 4 or more times a week Average Number of Drinks: 1 or 2 Frequency of Binge Drinking: Never Financial Resource Strain: Low Risk (08/21/2023) Overall Financial Resource Strain (CARDIA) Difficulty of Paying Living Expenses: Not very hard Food Insecurity: No Food Insecurity (08/21/2023) Hunger Vital Sign Worried About Running Out of Food in the Last Year: Never true Ran Out of Food in the Last Year: Never true Transportation Needs: No Transportation Needs (08/21/2023) PRAPARE - Transportation Lack of Transportation (Medical): No Lack of Transportation (Non-Medical): No Physical Activity: Sufficiently Active (08/21/2023) Exercise Vital Sign Days of Exercise per Week: 3 days Minutes of Exercise per Session: 150+ min Stress: No Stress Concern Present (08/21/2023) [employer] [place] - Occupational Stress Questionnaire Feeling of Stress : Only a little Social Connections: Socially Integrated (08/21/2023) Social Connection and Isolation Panel [NHANES] Frequency of Communication with Friends and Family: More than three times a week Frequency of Social Gatherings with Friends and Family: Once a week Attends [employer] Services: 1 to 4 times per year Active Member of Clubs or Organizations: Yes Attends Club or Organization Meetings: More than 4 times per year Marital Status: Intimate Partner Violence: Not At Risk (08/21/2023) Humiliation, Afraid, Rape, and Kick questionnaire Fear of Current or Ex-Partner: No Emotionally Abused: No Physically Abused: No Sexually Abused: No Depression: Not at risk (08/21/2023) PHQ-2 PHQ-2 Score: 0 Housing Stability: Low Risk (08/21/2023) Housing Stability Vital Sign Unable to Pay for Housing in the Last Year: No Number of Places Lived in the Last Year: 1 Unstable Housing in the Last Year: No Utilities: Not At Risk (08/21/2023) [facility] Utilities Threatened with loss of utilities: No Area Deprivation Index: Medium Risk (04/29/2023) Area Deprivation Index National Score (1-100), lower number is lower risk: 73 State Score (1-10), lower number is lower risk: 6 Data from: https://www.[facility] odatlas.medicine.[facility]. edu/. Last address used for calculation: [address] [place] [address] [address] Equipment: Do you currently use any equipment at home for your medical condition or to help you get around? None Patient has a walker, a cane and a shower chair for after surgery Active Services/Needs: None Transportation: Do you have reliable transportation to and from surgery/appointments?: Yes Who will provide discharge transportation: Spouse Will your ride be available for 1200 discharge time? Yes Office Visit Follow Up Did you receive the antiseptic wipes from your surgeon?s office? Yes Did you receive a prescription for an assistive device (walker or crutches) from your surgeon?s office and fill it or do you already have one at home? Yes Did you attend a joint education class/Watched video? Did you read the education book provided to you? Yes Have you let your PCP know you are having a joint replacement surgery? Yes If you are currently being seen by pain management, are they aware you are (more content not included)... Normal [facility] CBC panel Auto (Bld)on 09-05 Erythrocyte distribution width (RBC) [Ratio] 12.9 % Normal 11.5-15.0 [facility] Comment on above: Order Comment: Speci men Type: BLOOD SPECIMENOrdering Facility: [facility] Address: [address] [place] [address] Performed By: #### 5 8410-2 ####[facility] [id number] [place] [address] [place] Hematocrit (Bld) [Volume fraction] 39.8 % Normal 39.0-51.0 [facility] Comment on above: Order Comment: Speci men Type: BLOOD SPECIMENOrdering Facility: [facility] Address: [address] [place] [address] Performed By: #### 5 8410-2 ####[facility] LABIA [id number] [place] [address] [place] Hemoglobin (Bld) [Mass/Vol] 13.0 g/dL Normal 13.0-17.0 [facility] Comment on above: Order Comment: Speci men Type: BLOOD SPECIMENOrdering Facility: [facility] Address: [address] [place] [address] Performed By: #### 5 8410-2 ####[facility] LABIA [id number] [place] [address] [place] MCH (RBC) [Entitic mass] 31.8 pg Normal 26.0-34.0 [facility] Comment on above: Order Comment: Speci men Type: BLOOD SPECIMENOrdering Facility: [facility] Address: [address] [place] [address] Performed By: #### 5 8410-2 ####[facility] LABCLIA [id number] [place] [address] [place] MCHC (RBC) [Mass/Vol] 32.7 g/dL Normal 30.5-36.0 [facility] Comment on above: Order Comment: Speci men Type: BLOOD SPECIMENOrdering Facility: [facility] Address: [address] [place] [address] Performed By: #### 5 8410-2 ####[facility] LABIA [id number] [place] [address] [place] MCV (RBC) [Entitic vol] 97.3 fL Normal 80.0-100.0 [facility] Comment on above: Order Comment: Speci men Type: BLOOD SPECIMENOrdering Facility: [facility] Address: [address] [place] [address] Performed By: #### 5 8410-2 ####[facility] LABIA [id number] [place] [address] [place] Nucleated RBC (Bld) [#/Vol] 10*3/uL Normal <0.01 [facility] Comment on above: Order Comment: Speci men Type: BLOOD SPECIMENOrdering Facility: [facility] Address: [address] [place] [address] Performed By: #### 5 8410-2 ####[facility] LABCLIA [id number] [place] [address] [place] Platelet mean volume (Bld) [Entitic vol] 10.4 fL Normal 9.0-12.7 [facility] Comment on above: Order Comment: Speci men Type: BLOOD SPECIMENOrdering Facility: [facility] Address: [address] [place] [address] Performed By: #### 5 8410-2 ####[facility] LABCLIA [id number] [place] [address] [place] Platelets (Bld) [#/Vol] 257 10*3/uL Normal 150-400 [facility] Comment on above: Order Comment: Speci men Type: BLOOD SPECIMENOrdering Facility: [facility] Address: [address] [place] [address] Performed By: #### 5 8410-2 ####[facility] LABIA [id number] [place] [address] [place] RBC (Bld) [#/Vol] 4.09 10*6/uL Low 4.20-6.00 [facility] Comment on above: Order Comment: Speci men Type: BLOOD SPECIMENOrdering Facility: [facility] Address: [address] [place] [address] Performed By: #### 5 8410-2 ####[facility] LABIA [id number] [place] [address] [place] WBC (Bld) [#/Vol] 14.83 10*3/uL High 3.70-11.00 [facility] Comment on above: Order Comment: Speci men Type: BLOOD SPECIMENOrdering Facility: [facility] Address: [address] [place] [address] Performed By: #### 5 8410-2 ####[facility] [id number] [place] [address] [place] NURSING PROGon 09-05-2023 NURSING PROG HNO ID: [id number] Author: Mary Carvalho RN Service: Nursing Author Type: Registered Nurse Type: Nursing Progress Note Filed: 09/05/2023 9:49 AM Note Text: D/C instructions reviewed with pt at bedside including f/up appts, s/sx infection and actions to take, incision care, activity/WB restrictions, DVT prophylaxis and homegoing medications. Pt verbalizes understanding. Printed instruction packet with this information provided. IV removed. Spouse will transport home via personal vehicle. Normal [facility] THERAPY NTon 09-05-2023 THERAPY NT HNO ID: [id number] Author: Marichuy Mejia, OTR/L Service: Occupational Therapy Author Type: Occupational Therapist Type: Therapy (PT/OT/Speech/Resp) Filed: 09/05/2023 11:18 AM Note Text: Occupational Therapy Evaluation SERVICE DATE: 09/05/2023 SERVICE TIME: 940 to 955 ROOM: [place] [address] Total Joint Replacement Discharge Readiness: Cleared from Occupational Therapy Recommended Discharge Disposition: Home Anticipated Discharge Needs: Physical Assist at Home Physical Assist at Home for: Cleaning, Laundry, Meals, Transportation, Shopping OT 6 Clicks Score: 23 Precautions/Activity Restrictions: Fall Risk, Weight Bearing Restrictions Extremity With Weight Bearing Restricted: Right Lower Extremity Right Lower Extremity Weight Bearing Status: 75% PWB Current Hospital Course: 09/04: R TKA Reason for Hospital Admission: Primary osteoarthritis of right knee Relevant Past Medical History: HTN, HLD, Prostate cancer, s/p robotic prostatectomy, OA B knees. Response to Therapy Interventions: Good Participation in Activities Assessment Comments: No skilled needs, educated pt on LB clothing management Cognition/Communicatio n Deficits Responsiveness: Alert, Awake Follows Commands: 3-step Commands Cognitive Clinical Tests and Screens: Cog 6 Cog 6 Cog 6 Start of Session Arousal: 4 Cog 6 Start of Session Behavior: 4 Cog 6 Start of Session Orientation: 4 Cog 6 Start of Session Attention to Activity: 4 Cog 6 Start of Session Command Followin Cog 6 Start of Session Functional/Automatic Task Participation: 4 Cog 6 Start of Session Total Points (Max Score = 24): 24 Cog 6 End of Session Arousal: 4 Cog 6 End of Session Behavior: 4 Cog 6 End of Session Orientation: 4 Cog 6 End of Session Attention to Activity: 4 Cog 6 End of Session Command Followin Cog 6 End of Session Functional/Automatic Task Participation: 4 Cog 6 End of Session Total Points (Max Score = 24): 24 Treatment Interventions: Education, Self Care/Home Management Home Environment Patient Lives With: Spouse Assistance Available: 24-Hour Entry To Home: Stairs, With Rail Number Of Stairs Into Home: 3 Number Of Stairs To Bed/Bath: 0 Tub/Shower Type: walk in with chair Laundry: completes Equipment Owned: Walker- Wheeled Prior Functional Level: Within Functional Limits Prior Functional Level Comments: Patient was independent prior to admission, went back to work after his L TKA in April Baseline Cognition: Oriented to self, Oriented to place, Oriented to time, Oriented to situation Occupational Factors Life Roles: Spouse/Significant Other, Family Member, Friend Identified Strengths: Good Support System, Open to Adaptive Equipment/Strategies, Motivation Identified Barriers: Difficulty with ADLs/IADLs Subjective: agreeable to session CURRENT FUNCTIONAL STATUS: Most recent performance Current Activities of Daily Living Assist Level Additional Information Feeding Independent Grooming Set Up (standing) Bathing Upper Body Set Up Bathing Lower Body Stand By Assistance Dressing Upper Body Set Up Dressing Lower Body Minimal Assistance Toileting Modified Independent Instrumental Activities of Daily Living Assist Level Additional Information Meal/Beverage Prep Cleaning Laundry Medication Management with Strategies Functional Mobility Assist Level Additional Information Rolling Supine to Sit Sit to Supine Stand By Assistance Scooting Stand By Assistance Sit to Stand Stand By Assistance Stand to Sit Stand By Assistance Bed to Chair Stand By Assistance Toilet/Commode Stand By Assistance Shower Functional Mobility Stand By Assistance Wheeled Walker Blank fletcher indicate activity not attempted Learning/Educational Needs: Self Care Goals for Plan of Care: Patient/Caregiver Goals: Reduce ADL/IADL barriers Patient will be discontinued from Occupational Therapy when no further skilled needs are identified in this setting. PLAN: OT Frequency: Discontinue Therapy Services Reasons Therapy Services Discontinued: No skilled needs Plan of Care developed with: Patient TREATMENT INTERVENTIONS: Therapy Diagnosis: Reduced mobility-other, Decreased activities of daily living (ADL) Interventions Provided: Evaluation $ Evaluation - Low (75092) Billed Units: 1 unit Training AND Education Provided in: Discharge Planning, Activity Adaptation/Childbirth Educator y Strategies, Functional Mobility Involving ADLs, Lower Extremity Dressing, Positioning, Precautions/Restrictio ns, Role of Occupational Therapy, Standing Balance to Improve [place] with ADLs/Self-Care The Following Therapeutic Skills Were Used: Activity Dosing, Cues for Sequencing/Proper Technique for Activity, Cuing Tactile, Cuing Verbal, Cuing Visual, Physical Assist, Therapeutic Use of Self, Teach-Back for Education Skilled Treatment Time (minutes): 15 Please see discipline specific clinical documentation flow (more content not included)... [facility] THERAPY NT HNO ID: [id number] Author: Michele Hoff PTA Service: Physical Therapy Author Type: Waiter And Cashier Type: Therapy (PT/OT/Speech/Resp) Filed: 09/05/2023 9:33 AM Note Text: Attestation signed by Margaret Goldman PT DPT at 09/05/2023 9:45 AM I reviewed and agree with the documentation corresponding to this therapy visit. SIGNATURE: Margaret Varma Asp, PT, DPT DATE: September 05, 2023 TIME: 9:44 AM Physical Therapy Treatment SERVICE DATE: 09/05/2023 SERVICE TIME: 819 to 912 ROOM: H070- Total Joint Replacement Discharge Readiness: Cleared from Physical Therapy Recommended Discharge Disposition: Home PT PT 6 Clicks Score: 22 Precautions/Activity Restrictions: Fall Risk, Weight Bearing Restrictions Extremity With Weight Bearing Restricted: Right Lower Extremity Right Lower Extremity Weight Bearing Status: 75% PWB Current Hospital Course: 09/04: R TKA Reason for Hospital Admission: Primary osteoarthritis of right knee Relevant Past Medical History: HTN, HLD, Prostate cancer, s/p robotic prostatectomy, OA B knees. Response to Therapy Interventions: Good Participation in Activities, On-Track to Achieve Discharge Goals Assessment Comments: Occasionally impulsive with mobility, but able to correct with cues. Steady with wheeled walker gait. Able to safely manage stairs and car transfers with cues and appropriate assist. Anticipate continued progress in house and that patient should be appropriate for current home PT recs. Ok for discharge today from a PT standpoint. Anticipate discharge soon. Continued Skilled Needs Due to: Functional Mobility/Skill Impairments Physical Therapy Problem List: Safety Deficits, Decreased Activity Tolerance, Functional Mobility Impairment Treatment Interventions: Education, Self Care / Home Management, Strengthening, Functional Mobility Training Plan for Next Visit: Gait Training, Stair Training Home Environment Patient Lives With: Spouse Assistance Available: 24-Hour Entry To Home: Stairs, With Rail Number Of Stairs Into Home: 3 Number Of Stairs To Bed/Bath: 0 Equipment Owned: Walker- Wheeled Prior Functional Level: Within Functional Limits Prior Functional Level Comments: Patient was independent prior to admission, went back to work after his L TKA in April Subjective: Agreeable to PT CURRENT FUNCTIONAL STATUS: Most recent performance Current Functional Mobility Assist Level Additional Information Rolling Stand By Assistance Supine to Sit Stand By Assistance Sit to Supine Stand By Assistance Scooting Stand By Assistance Sit to Stand Stand By Assistance (Cues to ensure proper LE and hand placement prior to stand.) Stand to Sit Stand By Assistance (Cues for proper LE placement and to control descent while attempting to sit down .) Bed to Chair Stand By Assistance Bed To Chair Transfer Type: Stepping Bed To Chair Transfer Equipment: Wheeled Walker Toilet/Commode Gait Stand By Assistance Gait Device: Wheeled Walker Gait Distance (feet): 25 feet, 120 feet. Cues to improve gait within walker and to take even steps. Cues improving compliance with precautions. Stairs Contact Guard Assistance Stairs Device: Rail, Other: See Comment (bilateral) Number of Stairs: 4 Curb Step Car Transfer Contact Guard Assistance, Stand By Assistance (LE guidance and cues for tech. Practiced with wheeled walker on high-low mat in therapy gym.) Blank fletcher indicate activity not attempted Gait Deviations Right Lower Extremity: Foot clearance decreased, Heel strike during initial stance decreased, Knee flexion during stance increased, Lacks full knee extension during terminal swing, Push off during terminal stance decreased, Stance time decreased, Weight bearing decreased General Deviations/Observation s: Antalgic gait, Ana María decreased, Flexed trunk posture, Non-functional gait speed, Wide base of support, UE weight bearing on assistive device excessive, Path Deviation Exercises as tolerated (see flowsheet for details). Review current precautions in detail and educated patient on importance of adherence. Patient receptive. -HLM: 7: Walk 25 feet or more Learning/Educational Needs: Discharge Plan, Equipment, Functional Activities/Mobility, Plan of Care, Precautions, Rehabilitation Techniques and Procedures, Safety Goals for Plan of Care: Patient/Caregiver Goals: Go Home Goals: Patient will demonstrate progress with functional mobility to allow safe discharge to home with available support and/or physical assistance. Progress Toward Goals: Progressing as expected Rehab Potential: Excellent Patient will be discontinued from Physical Therapy when no further skilled needs are identified in this setting. PLAN: PT Frequency: Once Daily Plan (more content not included)... [facility] ANES POSTPROC EVALon 023 ANES POSTPROC EVAL HNO ID: [id number] Author: Alba Goel MD Service: ? Author Type: Anesthesiologist Type: Anesthesia Postprocedure Evaluation Filed: 09/04/2023 4:40 PM Note Text: POST ANESTHESIA EVALUATION NOTE : 1950 Procedure Summary Date: 09/04/23 Room / Location: [address] [facility] Anesthesia Start: 1053 Anesthesia Stop: 1357 Procedure: ROBOTIC ASSISTED TOTAL KNEE ARTHROPLASTY (Right: Knee) Diagnosis: Primary osteoarthritis of right knee (Primary osteoarthritis of right knee [M17.11]) Surgeons: Shaji Bishop MD Responsible Provider: Alba Goel MD Anesthesia Type: spinal ASA Status: 3 Anesthesia Type: spinal Last Vitals Vitals Value Taken Time BP 148/83 09/04/23 1616 Temp 36.3 ?C (97.3 ?F) 09/04/23 1615 Pulse 62 09/04/23 1617 Resp 21 09/04/23 1617 SpO2 99 % 09/04/23 1617 Vitals shown include unvalidated device data. Post Anesthesia Patient Status Patient Evaluation: PACU. PACU/ICU Patient Condition: stable. Anticipated Disposition: inpatient floor planned admission. Neurological Status: aware and responsive. Pulmonary Status: breathing comfortably on supplemental oxygen Airway Control: returned to baseline unsupported. Cardiovascular Status: stable. Pain Management: clinically adequate Postoperative Hydration: acceptable. Intraoperative Events: no significant anesthesia events Post Operative Nausea/Vomiting Status: no significant post operative nausea or vomiting Recommendation: continue current plan of care. Anesthesia Observations No Documentation SIGNATURE: Espinoza Goel MD PATIENT NAME: Ronnie Abebe DATE: September 04, 2023 TIME: 4:40 PM CSN: [id number] [facility] ANES PRE-OPon 09-04-2023 ANES PRE-OP HNO ID: [id number] Author: Alba Goel MD Service: ? Author Type: Anesthesiologist Type: Anesthesia Preprocedure Evaluation Filed: 09/04/2023 7:35 AM Note Text: ANESTHESIOLOGY DAY OF SURGERY NOTE : 1950 Procedure Information Date/Time: 09/04/2345 Procedure: ROBOTIC ASSISTED TOTAL KNEE ARTHROPLASTY (Right: Knee) Location: [address] [facility] [place] Surgeons: Shaji Bishop MD Estimated body mass index is 27.57 kg/m? as calculated from the following: Height as of this encounter: 185.4 cm (6' 1 ). Weight as of this encounter: 94.8 kg (209 lb). Most recent hematocrit and potassium results: Hematocrit 43.2 08/29/2023 Potassium 4.2 09/04/2023 Relevant Problems CARDIO (+) Dilation of aorta (HCC) (+) Hypertension (+) Pulmonary hypertension (HCC) GI (+) GERD (gastroesophageal reflux disease) NEURO-PSYCH (+) History of prostate cancer Other (+) Arthritis I - PHYSICAL EVALUATION AIRWAY Patient intubated: No. Tracheostomy tube not present Mallampati: II. TM distance: >3 FB. Neck ROM: full ROM without neurological symptoms. Mouth opening: adequate. Short neck: no. Thick neck: no Microretrognathia/Micr onagthia/Recessed Chin: No DENTAL Dental findings: teeth intact. Additional exam findings: yes. CARDIOVASCULAR Rhythm: regular Rate: normal Murmur not present. Peripheral edema not present. PULMONARY Breath sounds clear to auscultation. II - ANESTHESIA PLAN ASA Score: 3 Anesthetic Plan: spinal The patient is not a current smoker. NPO Status: adequate Anesthetic plan additional comments: present. Took amlodipine, metoprolol, Lipitor today. Took lisinopril 09/03 at 0400.. Beta Meena Monitoring Plan Monitoring plan: standard ASA. Post Procedure Analgesic Plan Postoperative analgesic plan: parenteral or oral opioids and per surgical service. Informed Consent Anesthetic risks, benefits, alternatives, personnel and consent discussed: yes. Patient / Responsible Libertarian agrees to proceed: yes Patient / Surrogate agrees to blood products: Yes Significant changes in the patient condition since the History and Physical, not otherwise documented in primary service progress note: no. Potential Anesthesia issues that may suggest increased risk of complications or contraindication to planned procedure: none. Vitals Value Taken Time BP 163/80 09/04/23 0724 Pulse 60 09/04/23 0732 Resp 16 09/04/23 0642 Temp 36.1 ?C (97 ?F) 09/04/23 0642 SpO2 99 % 09/04/23 0732 Facility-Administered Medications as of 09/04/2023 Medication Dose Route Frequency - lidocaine (PF) 10 mg/mL (1 %) 1-2 mg injection (XYLOCAINE) 0.1-0.2 mL INTRADERMAL PRN Or - lidocaine 1% 0.25 mL subcutaneous j-tip syringe (XYLOCAINE) 0.25 mL SUBCUTANEOUS PRN - lactated ringers iv infusion 5-30 mL/hr INTRAVENOUS CONTINUOUS - NaCl 0.9% iv flush bag 20 mL INTRAVENOUS PRN - tranexamic acid (CYKLOKAPRON) in NaCl 0.7% 1,000 mg 100 mL 1,000 mg INTRAVENOUS Pre-Op Once - tranexamic acid (CYKLOKAPRON) in NaCl 0.7% 1,000 mg 100 mL 1,000 mg INTRAVENOUS ONCE - ropivacaine 2.46 mg/mL-EPINEPHrine 0.005 mg/mL-cloNIDine 0.0008 mg/mL-ketorolac 0.3 mg/mL 50 mL injection (R.E.C.K.) 50 mL periarticular ONCE Outpatient Medications as of 09/04/2023 Medication Sig - atorvastatin (LIPITOR) 40 mg tablet Take 40 mg by mouth. - lisinopril (ZESTRIL) 40 mg tablet Take 40 mg by mouth. - atenolol (TENORMIN) 50 mg tablet Take 1 tablet by mouth once daily. Unknown Dosage. - FAMOTIDINE (PEPCID ORAL) Take 1 tablet by mouth once daily. Unknown Dosage. - multivitamin ORAL tablet Take 1 tablet by mouth once daily. - [] meloxicam (MOBIC) 15 mg tablet Take 1 tablet by mouth daily with food. I have interviewed and examined the patient. I have reviewed the medical record and/or the pre-anesthesia evaluation, pertinent labs, and test results. This contains updated information obtained within 48 hours of Surgery/Procedure. SIGNATURE: Espinoza Goel MD PATIENT NAME: Ronnie Abebe DATE: September 04, 2023 TIME: 7:33 AM CSN: [id number] [facility] BRIEF OP NOTon 09-04-2023 BRIEF OP NOT HNO ID: [id number] Author: Michelet Johnston MD Service: Orthopaedic Surgery Author Type: Resident Type: Brief Op Note Filed: 09/04/2023 1:29 PM Note Text: BRIEF OP NOTE LOG ID: [id number] Surgery/Procedure Date: 09/04/2023 Incision/Procedure Start Time: 11:29 AM Incision Close/Procedure End Time: Surgeon(s)/Procedurali st(s) and Typewriter Assembly And Parts Inspector(s): Surgeon(s) and Role: * Shaji Bishop MD - Primary * Michelet Johnston MD - Resident - Assisting * Erin Paez DO - Resident - Assisting Procedure(s): R TKA Anesthesia: Choice - Anesthesia Consult Findings: OA Estimated Blood Loss: 100 mls Specimens: None Complications: None Pre-Op/Pre-Procedure Diagnosis: R knee OA Post-Op/Post-Procedure Diagnosis: Same as preop SIGNATURE: Michelet Johnston MD PATIENT NAME: Ronnie Abebe DATE: September 04, 2023 TIME: 1:29 PM PAGER/CONTACT #: [phone] Plan of care discussed with: Provider, RN, Patient. [facility] Basic metabolic 2000 panelon 09-04-2023 Anion gap [Moles/Vol] 10 mmol/L Normal 9-18 [facility] Comment on above: Order Comment: Speci men Type: BLOOD SPECIMENOrdering Facility: [facility] Address: [address] [place] [address] Performed By: #### 2 4321-2 ####[facility] LABCLIA [id number] [place] [address] [place] Calcium [Mass/Vol] 9.6 mg/dL Normal 8.5-10.2 [facility] Comment on above: Order Comment: Speci men Type: BLOOD SPECIMENOrdering Facility: [facility] Address: [address] [place] [address] Performed By: #### 2 4321-2 ####[facility] LABCLIA [id number] [place] [address] [place] Chloride [Moles/Vol] 105 mmol/L Normal 97-105 [facility] Comment on above: Order Comment: Speci men Type: BLOOD SPECIMENOrdering Facility: [facility] Address: [address] [place] [address] Performed By: #### 2 4321-2 ####[facility] LABCLIA [id number] [place] [address] [place] CO2 [Moles/Vol] 24 mmol/L Normal 22-30 [facility] Comment on above: Order Comment: Speci men Type: BLOOD SPECIMENOrdering Facility: [facility] Address: [address] [place] [address] Performed By: #### 2 4321-2 ####[facility] LABIA [id number] [address] [place] Creatinine [Mass/Vol] 0.87 mg/dL Normal 0.73-1.22 [facility] Comment on above: Order Comment: Speci men Type: BLOOD SPECIMENOrdering Facility: [facility] Address: [address] [place] [address] Performed By: #### 2 4321-2 ####[facility] LABIA [id number] [address] OF [facility] Creatinine and Glomerular filtration rate.predicted panel (S/P/Bld) 92 mL/min/1.73m??? Normal >=60 [facility] Comment on above: Order Comment: Speci men Type: BLOOD SPECIMENOrdering Facility: [facility] Address: [address] [place] [address] Result Comment: Sarah mated Glomerular Filtration Rate (eGFR) is calculated using the 2020 CKD-EPI creatinine equation. This equation utilizes serum creatinine, sex, and age as parameters. The creatinine assay has traceable calibration to isotope dilution-mass spectrometry. Refer to KDIGO guidelines for clinical interpretation. In patients with unstable renal function, e.g. those with acute kidney injury, the eGFR may not accurately reflect actual GFR. Performed By: #### 2 4321-2 ####[facility] LABCLIA [id number] [place] [address] [place] Glucose [Mass/Vol] 109 mg/dL High 74-99 [facility] Comment on above: Order Comment: Speci men Type: BLOOD SPECIMENOrdering Facility: [facility] Address: [address] [place] [address] Result Comment: The [place] Diabetes Association (ADA) provides guidance for cutoff values for fasting glucose and random glucose. The ADA defines fasting as no caloric intake for at least 8 hours. Fasting plasma glucose results between 100 to 125 mg/dL indicate increased risk for diabetes (prediabetes). Fasting plasma glucose results greater than or equal to 126 mg/dL meet the criteria for diagnosis of diabetes. In the absence of unequivocal hyperglycemia, results should be confirmed by repeat testing. In a patient with classic symptoms of hyperglycemia or hyperglycemic crisis, random plasma glucose results greater than or equal to 200 mg/dL meet the criteria for diagnosis of diabetes. Reference: Standards of Medical Care in Diabetes 2016, [place] Diabetes Association. Diabetes Care. 2016.39(Suppl 1). Performed By: #### 2 4321-2 ####[facility] LABCLIA [id number] [place] [address] [place] Potassium [Moles/Vol] 4.2 mmol/L Normal 3.7-5.1 [facility] Comment on above: Order Comment: Speci men Type: BLOOD SPECIMENOrdering Facility: [facility] Address: [address] [place] [address] Performed By: #### 2 4321-2 ####[facility] LABCLIA [id number] [place] [address] [place] Sodium [Moles/Vol] 139 mmol/L Normal 136-144 [facility] Comment on above: Order Comment: Speci men Type: BLOOD SPECIMENOrdering Facility: [facility] Address: [address] [place] [address] Performed By: #### 2 4321-2 ####[facility] LABCLIA [id number] [place] [address] [place] Urea nitrogen [Mass/Vol] 19 mg/dL Normal 9-24 [facility] Comment on above: Order Comment: Speci men Type: BLOOD SPECIMENOrdering Facility: [facility] Address: [address] [place] [address] Performed By: #### 2 4321-2 ####[facility] LABCLIA [id number] [id number] [facility] CNDSon 09-04-2023 CNDS HNO ID: [id number] Author: Erin Paez DO Service: Orthopaedic Surgery Author Type: Resident Type: Discharge Summary Filed: 09/05/2023 10:59 AM Note Text: Attestation signed by Shaji Bishop MD at 09/05/2023 3:53 PM Reviewed, authenticated, and electronically signed by Shaji Bishop MD. DISCHARGE SUMMARY PATIENT NAME: Ronnie Abebe ADMISSION DATE: 09/04/2023 DISCHARGE DATE: 09/05/2023 Attending Physician: Shaji Bishop MD Reason for Hospitalization: Principal Problem: Primary osteoarthritis of right knee (POA: Yes) Resolved Problems: * No resolved hospital problems. * Admitting Diagnosis: Knee Advanced Degenerative Joint Disease Discharge Diagnosis: Same as admitting Operations During Hospitalization: Procedure(s) (LRB): ROBOTIC ASSISTED TOTAL KNEE ARTHROPLASTY (Right) Consultations: Physical Therapy Case Management Hospital Course: The patient is a 73 year old male who has been followed by Dr. Shaji Bishop MD in clinic for right knee DJD. It was determined he would benefit from surgery. The procedure, its risks, benefits, and potential complications were discussed in detail with the patient prior to surgery. Understanding of all topics was conveyed by the patient, and consent was given for surgery. The patient was electively admitted on 09/04/2023. Surgery was scheduled and on 09/04/2023 he underwent a Procedure(s) (LRB): ROBOTIC ASSISTED TOTAL KNEE ARTHROPLASTY (Right) with Choice - Anesthesia Consult. The procedure was tolerated well and he was sent to the post operative recovery room in stable condition, where he also did well. He was subsequently sent to his hospital room for postoperative management. Once on the floor his postoperative course was unremarkable and he did well. His diet was advanced which he tolerated. His pain was well controlled on oral pain meds; this was eventually transitioned to oral medication alone prior to discharge. He worked with Physical and Occupational Therapy starting on POD#1 who recommended he be discharged home. He remained afebrile with stable vital signs throughout his stay. He was stable for discharge to Home with Home Health on POD#1. Complete and comprehensive discharge instructions were provided to the patient as well as necessary prescriptions. The patient had no further questions and was advised to call with any questions, concerns, or problems. Patient was hemodynamically stable postoperatively. Relevant labs included: CBC, Coags, BMP, Mg, Phos Recent Labs 09/04/23 0652 NA 139 K 4.2 CHLOR 105 CO2 24 BUN 19 CREAT 0.87 GLUC 109* CA 9.6 Discharge Antibiotics: Prior to surgery the patient was treated with antibiotics and continued with antibiotics 24 hours postoperatively. Transfers: PACU and then to the hospital surgical floor when PACU criteria was met. DVT Prophylaxis: Aspirin 81mg BID x 30 days total Pain Control: multimodal Complications: Continued throughout the hospital course without complications. Labs and Procedures Pending at Discharge: No pending results. Patient Condition @ Discharge: Stable Discharge Disposition: Home with Self Care PHYSICAL EXAM (CHOOSE FIRST BLANK IF NOT LAST DAY PROGRESS NOTE): Discharge Activity: 75% WB RLE Information Provided to Patient: Discharge Medications: Medication List START taking these medications acetaminophen 500 mg tablet Commonly known as: TYLENOL EXTRA STRENGTH Take 2 tablets by mouth every 8 hours as needed for pain or fever for up to 14 days. aspirin, enteric coated 81 mg EC tablet Commonly known as: ECOTRIN LOW STRENGTH Take 1 tablet by mouth two times a day. docusate sodium 100 mg capsule Commonly known as: COLACE Take 1 capsule by mouth two times a day. Notes to patient: Stop if you develop loose stools oxyCODONE IR 5 mg immediate release tablet Commonly known as: ROXICODONE Take 1 to 2 tablets by mouth every 4 hours as needed for pain for up to 7 days. CONTINUE taking these medications amLODIPine 10 mg tablet Commonly known as: NORVASC atenolol 50 mg tablet Commonly known as: TENORMIN atorvastatin 40 mg tablet Commonly known as: LIPITOR lisinopril 40 mg tablet Commonly known as: ZESTRIL multivitamin tablet PEPCID ORAL STOP taking these medications mupirocin 2 % ointment Commonly known as: BACTROBAN Where to Get Your Medications These medications were sent to [facility] [address] [place] [address] Hours: Saturday-Saturday 7am-8pm, Saturday, Saturday and Holidays 9am-5pm acetaminophen 500 mg tablet aspirin, enteric coated 81 mg EC tablet docusate sodium 100 mg capsule oxyCODONE IR 5 mg immediate release tablet Follow-Up in 10-14 days Futu (more content not included)... Normal [facility] OPERATIVE NOon 09-04-2023 OPERATIVE NO HNO ID: [id number] Author: Shaji Bishop MD Service: Orthopaedic Surgery Author Type: Physician Type: Operative Report Filed: 09/05/2023 3:54 PM Note Text: [facility] [address] [address] [place] OPERATIVE NOTE PATIENT NAME: Ronnie Abebe AGE: [age] year old LOG ID: [id number] SURGERY DATE: 09/04/2023 SURGEON AND ASSISTANTS: Surgeon(s) and Role: * Shaji Bishop MD - Primary * Michelet Johnston MD - Resident - Assisting * Erin Paez DO - Resident - Assisting OPERATION: ROBOTIC RIGHT TOTAL KNEE - PRESS-FIT CR for VARUS DEFORMITY ANESTHESIA: Choice - Anesthesia Consult SPINAL + ADDUCTOR CANAL BLOCK PRE-OPERATIVE DIAGNOSIS: PRIMARY RIGHT KNEE OSTEOARTHRITIS Pre-Op Diagnosis Codes:Primary osteoarthritis of right knee [M17.11] POST-OPERATIVE DIAGNOSIS: PRIMARY RIGHT KNEE OSTEOARTHRITIS Same as Pre-Op Diagnosis Codes:Primary osteoarthritis of right knee [M17.11] BMI: Estimated body mass index is 27.57 kg/m? as calculated from the following: Height as of this encounter: 185.4 cm (6' 1 ). Weight as of this encounter: 94.8 kg (209 lb). OPERATIVE INDICATIONS: The patient is a 73 year old that has developed deformity in the right knee joint with X-rays evidence of tri-compartmental degeneration and varus angulation from predominantly medial wear and bone loss. Non-operative treatment and Physical Therapy have been attempted on the right, but have not improved or controlled the symptoms and pain that occurs during normal daily activities. Knee motion has also become limited and is restricting the patient. Robotic assisted right total knee arthroplasty was recommended. A CT-scan will be done pre-operatively for planning, segmentation, and precise intra-operative registration and robotically guided bone resection. Bone density and size are amenable to an uncemented press-fit knee arthroplasty. This was discussed with the patient in detail including the possibility of longer term tibial component fixation and less stress shielding. The risks, benefits and potential complications of the arthroplasty surgery were discussed with the patient in detail. Potential complications specifically related to primary knee replacement were discussed in detail and included but were not limited to bleeding problems, vessel damage, nerve injury, nerve dysfunction, infection, blood clots, and other complications known to occur with joint surgery. Specific details of the surgical procedure, hospitalization, recovery, rehabilitation, and long-term precautions were also presented. Pre-operative teaching was provided. Implant/prosthesis selection was outlined, and the many options available were explained; the final choice will be made at the time of the procedure to match the anatomy and condition of the bone, ligaments, tendons, and muscles. The patient was seen by [facility] for pre-operative optimization, and risk assessment. Garima-operative blood management and the potential for blood transfusion were discussed with risks and options clearly outlined. The patient has consented to the use of banked allogenic blood if medically necessary. Understanding of all topics was conveyed to me by the patient pre-operatively, and patient consent was given to proceed with the right total knee replacement. OPERATIVE FINDINGS: Severe tricompartmental wear and degeneration. ACL absent. Significant tricompartmental grade 3, 4 chondral changes were present, more medial than lateral. Medial meniscus was degenerative and torn. Lateral meniscus was degenerative but intact. The knee was lax medially due to bone loss on the tibia. MCL attenuated but intact. PCL intact. OPERATIVE PROCEDURE: The patient was identified and brought into the Operating Room by the anesthesia and nursing teams. Anesthesia and placement of an Adductor Canal block catheter was successfully performed. The patient was then positioned supine on the operating room table, and a Cash catheter was placed. Intravenous antibiotic prophylaxis dosing was confirmed. A tourniquet was applied to the right upper thigh. A full knee exam was done after anesthesia was in full effect. The right leg was prepped and draped in the usual sterile fashion. Tranexamic acid was used for blood conservation. The [employer] robot was prepared and draped. The Robotic Arm was located on the operative side, and the Camera Stand opposite the Robotic Arm. A surgical time-out was performed immediately preceding the incision with all personnel in the operating room; the patient identity was again confirmed, the right knee-surgical site and extremity were identified and confirmed, X-rays were reviewed, and availability of the appropriate surgical equipment was established. The right knee was exsanguinated and exposed using a limited anterior-midline skin incision. Di (more content not included)... Normal [facility] THERAPY NTon 09-04-2023 THERAPY NT HNO ID: [id number] Author: Margaret Goldman PT, DPT Service: Physical Therapy Author Type: Physical Therapist Type: Therapy (PT/OT/Speech/Resp) Filed: 09/04/2023 5:55 PM Note Text: Physical Therapy Evaluation SERVICE DATE: 09/04/2023 SERVICE TIME: 1645 to 1742 ROOM: [address] [address] Total Joint Replacement Discharge Readiness: Cleared from Physical Therapy Recommended Discharge Disposition: Home PT PT 6 Clicks Score: 22 Precautions/Activity Restrictions: Fall Risk, Weight Bearing Restrictions Extremity With Weight Bearing Restricted: Right Lower Extremity Right Lower Extremity Weight Bearing Status: 75% PWB Current Hospital Course: 09/04: R TKA Reason for Hospital Admission: Primary osteoarthritis of right knee Relevant Past Medical History: HTN, HLD, Prostate cancer, s/p robotic prostatectomy, OA B knees. Response to Therapy Interventions: Good Participation in Activities Continued Skilled Needs Due to: Functional Mobility/Skill Impairments, Safety Concerns Physical Therapy Problem List: Safety Deficits, Decreased Activity Tolerance, Functional Mobility Impairment Treatment Interventions: Education, Energy Conservation Training, Joint Mobility, Strengthening, Functional Mobility Training, Balance Training, Neuromuscular Re-education Plan for Next Visit: Gait Training, Car Transfer Training, Stair Training Home Environment Patient Lives With: Spouse Assistance Available: 24-Hour Entry To Home: Stairs, With Rail Number Of Stairs Into Home: 3 Number Of Stairs To Bed/Bath: 0 Equipment Owned: Walker- Wheeled Prior Functional Level: Within Functional Limits Prior Functional Level Comments: Patient was independent prior to admission, went back to work after his L TKA in April Subjective: Agreeable to PT session CURRENT FUNCTIONAL STATUS: Most recent performance Current Functional Mobility Assist Level Additional Information Rolling Stand By Assistance Supine to Sit Stand By Assistance Sit to Supine Stand By Assistance Scooting Stand By Assistance Sit to Stand Stand By Assistance Stand to Sit Stand By Assistance Bed to Chair Toilet/Commode Gait Contact Guard Assistance, Additional Information Gait Device: Wheeled Walker Gait Distance (feet): 125 feet + 15 feet Cues to maintain weight bearing status Stairs Contact Guard Assistance Stairs Device: Rail Number of Stairs: 4 Curb Step Car Transfer Blank fletcher indicate activity not attempted Gait Deviations Right Lower Extremity: Weight bearing decreased, Knee flexion during stance increased General Deviations/Observation s: Ana María decreased Balance: Static Sitting, Dynamic Sitting, Static Standing, Dynamic Standing Static Sitting Balance: Normal Patient able to maintain steady balance without handhold support Dynamic Sitting Balance: Normal Patient accepts maximal challenge and can shift weight easily within full range in all directions Static Standing Balance: Normal Patient able to maintain steady balance without handhold support Dynamic Standing Balance: Good Patient accepts moderate challenge, able to maintain balance while picking up object off floor JH-HLM: 7: Walk 25 feet or more Learning/Educational Needs: Discharge Plan, Functional Activities/Mobility, Plan of Care, Precautions, Rehabilitation Techniques and Procedures Goals for Plan of Care: Patient/Caregiver Goals: Go Home Goals: Patient will demonstrate progress with functional mobility to allow safe discharge to home with available support and/or physical assistance. Rehab Potential: Excellent Patient will be discontinued from Physical Therapy when no further skilled needs are identified in this setting. PLAN: PT Frequency: Once Daily Plan of Care developed with: Patient, Family TREATMENT INTERVENTIONS: Therapy Diagnosis: Reduced mobility-other, Abnormalities of gait and mobility-other Interventions Provided: Evaluation, Therapeutic Exercise (59996), Therapeutic Activity (13077), Gait Training (85236) $ Evaluation-Low (68749) Billed Units: 1 unit Therapeutic Exercise (26118) Treatment Minutes: 15 $ Therapeutic Exercise (38152) Billed Units: 1 unit Therapeutic Activity (40480) Treatment Minutes: 10 $ Therapeutic Activity (43059) Billed Units: 1 unit Gait Training (98924) Treatment Minutes: 15 $ Gait Training (44416) Billed Units: 1 unit Training AND Education Provided in: Anatomy and Impact on Deficits, Assistive Device Use, Bed Mobility, Benefits of In-Hospital Mobility, Discharge Planning, Energy Conservation, Expected Functional Level, Falls Prevention, Gait Pattern, Reduction of Deviations, Precautions/Restrictio ns, Role of Physical Therapy, Stair Navigation, Standing Balance, Transfers The Following Therapeutic Skills Were Used: Activity Dosing, Assessment of Tolerance Including Vitals Response to Activity, Cues for Sequencing/Proper Technique for Activity, Cuing Tactile, Cuing Verbal, Cuing Visual (more content not included)... Normal [facility] Basic metabolic 2000 panelon 08-29-2023 Anion gap [Moles/Vol] 11 mmol/L 9 - 18 mmol/L [facility] Calcium [Mass/Vol] 9.4 mg/dL 8.5 - 10. 2 mg/dL [facility] Chloride [Moles/Vol] 106 mmol/L High 97 - 10 5 mmol/L [facility] CO2 [Moles/Vol] 22 mmol/L 22 - 30 mmol/L [facility] Creatinine [Mass/Vol] 1.40 mg/dL High 0.73 - 1.22 mg/dL [facility] Estimated Glomerular Filtration Rate 53 mL/min/1.73m Low >=60 mL/min/1.73m [facility] Glucose [Mass/Vol] 101 mg/dL High 74 - 99 mg/dL [facility] Potassium [Moles/Vol] 5.3 mmol/L High 3.7 - 5.1 mmol/L [facility] Sodium [Moles/Vol] 139 mmol/L 136 - 144 mmol/L [facility] Urea nitrogen [Mass/Vol] 29 mg/dL High 9 - 24 mg/dL [facility] Anion gap [Moles/Vol] 11 mmol/L Normal 9-18 [facility] Comment on above: Order Comment: Speci men Type: BLOOD SPECIMENOrdering Facility: [facility] Address: [address] [place] [address] Performed By: #### 2 4321-2, 99876-7, 2276-01 ####[facility] LABCLIA [id number] [place] [address] [place] Calcium [Mass/Vol] 9.4 mg/dL Normal 8.5-10.2 [facility] Comment on above: Order Comment: Speci men Type: BLOOD SPECIMENOrdering Facility: [facility] Address: [address] [place] [address] Performed By: #### 2 4321-2, 00488-0, 2276-01 ####[facility] LABCLIA [id number] [place] [address] [place] Chloride [Moles/Vol] 106 mmol/L High 97-105 [facility] Comment on above: Order Comment: Speci men Type: BLOOD SPECIMENOrdering Facility: [facility] Address: [address] [place] [address] Performed By: #### 2 4321-2, 33757-5, 2276-01 ####[facility] LABCLIA [id number] [place] [address] [place] CO2 [Moles/Vol] 22 mmol/L Normal 22-30 [facility] Comment on above: Order Comment: Speci men Type: BLOOD SPECIMENOrdering Facility: [facility] Address: [address] [place] [address] Performed By: #### 2 4321-2, 27010-4, 2276-01 ####[facility] LABCLIA [id number] [place] [address] [place] Creatinine [Mass/Vol] 1.40 mg/dL High 0.73-1.22 [facility] Comment on above: Order Comment: Speci men Type: BLOOD SPECIMENOrdering Facility: [facility] Address: [address] [place] [address] Performed By: #### 2 4321-2, 81173-3, 2276-4 ####[facility] LABIA [id number] [place] [address] [place] Creatinine and Glomerular filtration rate.predicted panel (S/P/Bld) 53 mL/min/1.73m??? Low >=60 [facility] Comment on above: Order Comment: Celian carmona Type: BLOOD SPECIMENOrdering Facility: [facility] Address: [address] [place] [address] Result Comment: Sarah mated Glomerular Filtration Rate (eGFR) is calculated using the 2020 CKD-EPI creatinine equation. This equation utilizes serum creatinine, sex, and age as parameters. The creatinine assay has traceable calibration to isotope dilution-mass spectrometry. Refer to KDIGO guidelines for clinical interpretation. In patients with unstable renal function, e.g. those with acute kidney injury, the eGFR may not accurately reflect actual GFR. Performed By: #### 2 4321-2, 74748-7, 2276-4 ####[facility] LABIA [id number] [place] [address] [place] Glucose [Mass/Vol] 101 mg/dL High 74-99 [facility] Comment on above: Order Comment: Celina carmona Type: BLOOD SPECIMENOrdering Facility: [facility] Address: [address] [place] [address] Result Comment: The [place] Diabetes Association (ADA) provides guidance for cutoff values for fasting glucose and random glucose. The ADA defines fasting as no caloric intake for at least 8 hours. Fasting plasma glucose results between 100 to 125 mg/dL indicate increased risk for diabetes (prediabetes). Fasting plasma glucose results greater than or equal to 126 mg/dL meet the criteria for diagnosis of diabetes. In the absence of unequivocal hyperglycemia, results should be confirmed by repeat testing. In a patient with classic symptoms of hyperglycemia or hyperglycemic crisis, random plasma glucose results greater than or equal to 200 mg/dL meet the criteria for diagnosis of diabetes. Reference: Standards of Medical Care in Diabetes 2016, [place] Diabetes Association. Diabetes Care. 2016.39(Suppl 1). Performed By: #### 2 4321-2, 72392-2, 6-4 ####[facility] LABCLIA [id number] [place] [address] [place] Potassium [Moles/Vol] 5.3 mmol/L High 3.7-5.1 [facility] Comment on above: Order Comment: Speci men Type: BLOOD SPECIMENOrdering Facility: [facility] Address: [address] [place] [address] Performed By: #### 2 4321-2, 81582-1, 2275- ####[facility] LABIA [id number] [place] [address] [place] Sodium [Moles/Vol] 139 mmol/L Normal 136-144 [facility] Comment on above: Order Comment: Speci men Type: BLOOD SPECIMENOrdering Facility: [facility] Address: [address] [place] [address] Performed By: #### 2 4321-2, 44991-9, 2275-4 ####[facility] [id number] [place] [address] [place] Urea nitrogen [Mass/Vol] 29 mg/dL High 9-24 [facility] Comment on above: Order Comment: Speci men Type: BLOOD SPECIMENOrdering Facility: [facility] Address: [address] [place] [address] Performed By: #### 2 4321-2, 63427-4, 2275-4 ####[facility] LABIA [id number] [place] [id number] [place] CBC W Auto Differential pane l (Bld)on 08-29-2023 Basophils (Bld) [#/Vol] 0.06 10*3/uL <0.11 k/uL [facility] Basophils/100 WBC (Bld) 0.7 % [facility] Differential cell count method Nom (Bld) Auto [facility] Eosinophils (Bld) [#/Vol] 0.32 10*3/uL <0.46 k/uL [facility] Eosinophils/100 WBC (Bld) 3.5 % [facility] Erythrocyte distribution width (RBC) [Ratio] 13.4 % 11.5 - 15.0 % [facility] Hematocrit (Bld) [Volume fraction] 43.2 % 39.0 - 51.0 % [facility] Hemoglobin (Bld) [Mass/Vol] 13.3 g/dL 13.0 - 17.0 g/dL [facility] Immature granulocytes (Bld) [#/Vol] 0.04 10*3/uL <0.10 k/uL [facility] Immature granulocytes/100 WBC (Bld) 0.4 % [facility] Lymphocytes (Bld) [#/Vol] 2.10 10*3/uL 1.00 - 4.00 k/uL [facility] Lymphocytes/100 WBC (Bld) 22.9 % [facility] MCH (RBC) [Entitic mass] 31.2 pg 26.0 - 34.0 pg [facility] MCHC (RBC) [Mass/Vol] 30.8 g/dL 30.5 - 36.0 g/dL [facility] MCV (RBC) [Entitic vol] 101.4 fL High 80.0 - 100.0 fL [facility] Monocytes (Bld) [#/Vol] 1.16 10*3/uL High <0.87 k/uL [facility] Monocytes/100 WBC (Bld) 12.7 % [facility] Neutrophils (Bld) [#/Vol] 5.48 10*3/uL 1.45 - 7.50 k/uL [facility] Neutrophils/100 WBC (Bld) 59.8 % [facility] Nucleated RBC (Bld) [#/Vol] <0.01 k/uL [facility] Nucleated RBC/100 WBC (Bld) [Ratio] 0.0 /100 WBC [facility] Platelet mean volume (Bld) [Entitic vol] 10.4 fL 9.0 - 12.7 fL [facility] Platelets (Bld) [#/Vol] 283 10*3/uL 150 - 400 k/uL [facility] RBC (Bld) [#/Vol] 4.26 10*6/uL 4.20 - 6.0 0 m/uL [facility] WBC (Bld) [#/Vol] 9.16 10*3/uL 3.70 - 11. 00 k/uL [facility] Basophils (Bld) [#/Vol] 0.06 10*3/uL Normal <0.11 [facility] Comment on above: Order Comment: Speci men Type: BLOOD SPECIMENOrdering Facility: [facility] Address: [address] [place] [address] Performed By: #### 5 7021-8 ####[facility] LABCLIA [id number] [place] [address] [place] Basophils/100 WBC (Bld) 0.7 % Normal [facility] Comment on above: Order Comment: Speci men Type: BLOOD SPECIMENOrdering Facility: [facility] Address: [address] [place] [address] Performed By: #### 5 7021-8 ####[facility] LABCLIA [id number] [place] [address] [place] Differential cell count method Nom (Bld) Auto Normal [facility] Comment on above: Order Comment: Speci men Type: BLOOD SPECIMENOrdering Facility: [facility] Address: [address] [place] [address] Performed By: #### 5 7021-8 ####[facility] LABCLIA [id number] [place] [address] [place] Eosinophils (Bld) [#/Vol] 0.32 10*3/uL Normal <0.46 [facility] Comment on above: Order Comment: Speci men Type: BLOOD SPECIMENOrdering Facility: [facility] Address: [address] [place] [address] Performed By: #### 5 7021-8 ####[facility] LABCLIA [id number] [place] [address] [place] Eosinophils/100 WBC (Bld) 3.5 % Normal [facility] Comment on above: Order Comment: Speci men Type: BLOOD SPECIMENOrdering Facility: [facility] Address: [address] [place] [address] Performed By: #### 5 7021-8 ####[facility] LABIA [id number] [place] [address] [place] Erythrocyte distribution width (RBC) [Ratio] 13.4 % Normal 11.5-15.0 [facility] Comment on above: Order Comment: Speci men Type: BLOOD SPECIMENOrdering Facility: [facility] Address: [address] [place] [address] Performed By: #### 5 7021-8 ####[facility] LABIA [id number] [place] [address] [place] Hematocrit (Bld) [Volume fraction] 43.2 % Normal 39.0-51.0 [facility] Comment on above: Order Comment: Speci men Type: BLOOD SPECIMENOrdering Facility: [facility] Address: [address] [place] [address] Performed By: #### 5 7021-8 ####[facility] LABIA [id number] [place] [address] [place] Hemoglobin (Bld) [Mass/Vol] 13.3 g/dL Normal 13.0-17.0 [facility] Comment on above: Order Comment: Speci men Type: BLOOD SPECIMENOrdering Facility: [facility] Address: [address] [place] [address] Performed By: #### 5 7021-8 ####[facility] LABIA [id number] [place] [address] [place] Immature granulocytes (Bld) [#/Vol] 0.04 10*3/uL Normal <0.10 [facility] Comment on above: Order Comment: Speci men Type: BLOOD SPECIMENOrdering Facility: [facility] Address: [address] [place] [address] Performed By: #### 5 7021-8 ####[facility] LABIA [id number] [place] [address] [place] Immature granulocytes/100 WBC (Bld) 0.4 % Normal [facility] Comment on above: Order Comment: Speci men Type: BLOOD SPECIMENOrdering Facility: [facility] Address: [address] [place] [address] Performed By: #### 5 7021-8 ####[facility] LABCLIA [id number] [place] [address] [place] Lymphocytes (Bld) [#/Vol] 2.10 10*3/uL Normal 1.00-4.00 [facility] Comment on above: Order Comment: Speci men Type: BLOOD SPECIMENOrdering Facility: [facility] Address: [address] [place] [address] Performed By: #### 5 7021-8 ####[facility] LABCLIA [id number] [place] [address] [place] Lymphocytes/100 WBC (Bld) 22.9 % Normal [facility] Comment on above: Order Comment: Speci men Type: BLOOD SPECIMENOrdering Facility: [facility] Address: [address] [place] [address] Performed By: #### 5 7021-8 ####[facility] LABCLIA [id number] [place] [address] [place] MCH (RBC) [Entitic mass] 31.2 pg Normal 26.0-34.0 [facility] Comment on above: Order Comment: Speci men Type: BLOOD SPECIMENOrdering Facility: [facility] Address: [address] [place] [address] Performed By: #### 5 7021-8 ####[facility] LABCLIA [id number] [place] [address] [place] MCHC (RBC) [Mass/Vol] 30.8 g/dL Normal 30.5-36.0 [facility] Comment on above: Order Comment: Speci men Type: BLOOD SPECIMENOrdering Facility: [facility] Address: [address] [place] [address] Performed By: #### 5 7021-8 ####[facility] LABIA [id number] [place] [address] [place] MCV (RBC) [Entitic vol] 101.4 fL High 80.0-100.0 [facility] Comment on above: Order Comment: Speci men Type: BLOOD SPECIMENOrdering Facility: [facility] Address: [address] [place] [address] Performed By: #### 5 7021-8 ####[facility] LABIA [id number] [place] [address] [place] Monocytes (Bld) [#/Vol] 1.16 10*3/uL High <0.87 [facility] Comment on above: Order Comment: Speci men Type: BLOOD SPECIMENOrdering Facility: [facility] Address: [address], [place] [address] Performed By: #### 5 7021-8 ####[facility] LABIA [id number] [place] [address] [place] Monocytes/100 WBC (Bld) 12.7 % Normal [facility] Comment on above: Order Comment: Speci men Type: BLOOD SPECIMENOrdering Facility: [facility] Address: [address] [place] [address] Performed By: #### 5 7021-8 ####[facility] LABIA [id number] [place] [address] [place] Neutrophils (Bld) [#/Vol] 5.48 10*3/uL Normal 1.45-7.50 [facility] Comment on above: Order Comment: Speci men Type: BLOOD SPECIMENOrdering Facility: [facility] Address: [address] [place] [address] Performed By: #### 5 7021-8 ####[facility] LABCLIA [id number] [place] [address] [place] Neutrophils/100 WBC (Bld) 59.8 % Normal [facility] Comment on above: Order Comment: Speci men Type: BLOOD SPECIMENOrdering Facility: [facility] Address: [address] [place] [address] Performed By: #### 5 7021-8 ####[facility] LABCLIA [id number] [place] [address] [place] Nucleated RBC (Bld) [#/Vol] 10*3/uL Normal <0.01 [facility] Comment on above: Order Comment: Speci men Type: BLOOD SPECIMENOrdering Facility: [facility] Address: [address] [place] [address] Performed By: #### 5 7021-8 ####[facility] LABCLIA [id number] [place] [address] [place] Nucleated RBC/100 WBC (Bld) [Ratio] 0.0 /100 WBC Normal [facility] Comment on above: Order Comment: Speci men Type: BLOOD SPECIMENOrdering Facility: [facility] Address: [address] [place] [address] Performed By: #### 5 7021-8 ####[facility] LABCLIA [id number] [place] [address] [place] Platelet mean volume (Bld) [Entitic vol] 10.4 fL Normal 9.0-12.7 [facility] Comment on above: Order Comment: Speci men Type: BLOOD SPECIMENOrdering Facility: [facility] Address: [address] [place] [address] Performed By: #### 5 7021-8 ####[facility] LABCLIA [id number] [place] [address] [place] Platelets (Bld) [#/Vol] 283 10*3/uL Normal 150-400 [facility] Comment on above: Order Comment: Speci men Type: BLOOD SPECIMENOrdering Facility: [facility] Address: [address] [place] [address] Performed By: #### 5 7021-8 ####[facility] LABIA [id number] [place] [address] [place] RBC (Bld) [#/Vol] 4.26 10*6/uL Normal 4.20-6.00 [facility] Comment on above: Order Comment: Speci men Type: BLOOD SPECIMENOrdering Facility: [facility] Address: [address] [place] [address] Performed By: #### 5 7021-8 ####[facility] LABIA [id number] [place] [address] [place] WBC (Bld) [#/Vol] 9.16 10*3/uL Normal 3.70-11.00 [facility] Comment on above: Order Comment: Speci men Type: BLOOD SPECIMENOrdering Facility: [facility] Address: [address] [place] [address] Performed By: #### 5 7021-8 ####[facility] LABIA [id number] [place] [address] [place] [address] KNEE WO IVCON RIGHTon [facility] CT KNEE WO IVCON RTon 2022 CT KNEE WO IVCON RT * * *Final Report* * * DATE OF EXAM: Aug 29 2023 10:03AM [place] [id number] - CT KNEE WO IVCON RT / PROCEDURE REASON: Primary osteoarthritis of right knee * * * * Physician Interpretation * * * * History: Primary osteoarthritis of right knee Osteoarthritis. CT for Preoperative Planning. Technique: CT KNEE WO IVCON RT -- CT imaging was performed without administration of contrast: ANDREWS PROTOCOL: Axial images of the knee and limited axial images through hip and ankle. Dose-Length Product (DLP): 568 mGy*cm. CT Dose Reduction Employed: Automated exposure control(AEC) and iterative recon Comparison: None Result: Right Knee: Advanced osteoarthritis. No other significant findings Pelvis: Limited images demonstrate no significant abnormality. Right Ankle: Limited images demonstrate no significant abnormality. Impression: Knee Osteoarthritis. No other significant abnormality. Manager Completions: PSCB Transcribe Date/Time: Aug 29 2023 10:39A Dictated by : LOCO CHO MD This examination was interpreted and the report reviewed and electronically signed by: DIAZ FAN MD on Aug 29 2023 10:44AM EST [id number] Normal [facility] ECG COMPLETEon 08-29-2023 ECG COMPLETE Ventricular Rate : 5 6 BPM Atrial Rate : 56 BPM P-R Interval : 168 ms QRS Duration : 78 ms Q-T Interval : 432 ms QTC Calculation(Bazett) : 416 ms Calculated P [place] : 35 degrees Calculated R [place] : -14 degrees Calculated T [place] : 5 degrees SINUS BRADYCARDIA WITH OCCASIONAL PREMATURE VENTRICULAR COMPLEXES OTHERWISE NORMAL ECG Confirmed by KAYLIE ESPAAÑ MD ([id number]) on 09/02/2023 4:32:59 PM NAME : RONNIE ABEBE PID : [id number] : 1950 Gender : Male Race : ORD : [id number] Procedure Date : Aug 29 2023 08:30:40 Edit Date : Sep 02 2023 16:33:02 Diagnosis: SINUS BRADYCARDIA WITH OCCASIONAL PREMATURE VENTRICULAR COMPLEXES OTHERWISE NORMAL ECG Confirmed by KAYLIE ESPAÑA MD ([id number]) on 09/02/2023 4:32:59 PM Test Reason : Location : 119 : A17 Overread By : KAYLIE ESPAÑA MD Edited By : KAYLIE ESPAÑA MD Referred By : SHAJI BISHOP Acquired by : ISABELLE LACEY Normal [facility] FERRITIN BLDon 08-29-2023 Ferritin [Mass/Vol] 266.0 ng/mL 30.3 - 5 65.7 ng/mL [facility] Ferritin SerPl-mCncon 2022 Ferritin [Mass/Vol] 266.0 ng/mL Normal 30.3-565.7 [facility] Comment on above: Order Comment: Speci men Type: BLOOD SPECIMENOrdering Facility: [facility] Address: [address] [place] [address] Performed By: #### 2 4321-2, 45005-1, 2276-4 ####[facility] LABCLIA [id number] [place] [id number] [place] HISTORY PHYSICALon 3 HISTORY PHYSICAL HNO ID: [id number] Author: Dwain Mcintosh APRN.KEYONNA Service: ? Author Type: Nurse Practitioner Type: HANDP Filed: 08/30/2023 11:30 AM Note Text: HISTORY AND PHYSICAL EXAMINATION SERVICE DATE: 08/29/2023 SERVICE TIME: 7:41 AM PRIMARY CARE PHYSICIAN: Merline Fuller MD REASON FOR VISIT: Ronnie Abebe is a 73 year old male who is scheduled for RIGHT ROBOTIC ASSISTED TOTAL KNEE ARTHROPLASTY on 09/04/2023 at [facility] at the request of Dr. Shaji Bishop for consultation. My final recommendation will be communicated back to the requesting physician by way of shared medical record or letter. The patient has the following: ACTIVE PROBLEM LIST History of Prostate Cancer Hypertension Hyperlipidemia Gerd (Gastroesophageal Reflux Disease) Arthritis Primary Osteoarthritis of Left Knee Tricuspid Regurgitation Pulmonary Hypertension (Hcc) Dilation of Aorta (Hcc) Subjective CHIEF COMPLAINT: Pre-op examination; primary osteoarthritis of right knee HPI: Patient is a 73 year old male presenting to [facility]; scheduled for ROBOTIC ASSISTED TOTAL KNEE ARTHROPLASTY. Patient has c/o primary osteoarthritis of right knee. He has associated right knee pain. Symptoms started several years ago. Pain is currently a 5/10, described as aching. The above surgery was recommended; patient has elected to proceed. PAST MEDICAL HISTORY Diagnosis Date Dilation of aorta (HCC) History of prostate cancer HTN (hypertension) Hyperlipidemia Pulmonary hypertension (HCC) Tricuspid regurgitation PAST SURGICAL HISTORY Procedure Laterality Date OTHER SURGICAL HISTORY (PLEASE SPECIFY) HX 2012 robotic prostatectomy TOTAL KNEE REPLACEMENT Left FAMILY HISTORY Problem Relation Age of Onset other (Mesothelioma [Other]) Mother other (Lung Cancer [Other]) Father Anesthesia Problems No Family History SOCIAL HISTORY: Social History Tobacco Use Smoking status: Former Years: 2 Types: Cigarettes Quit date: 1982 Years since quittin.8 Passive exposure: Never Smokeless tobacco: Never Substance Use Topics Alcohol use: Yes Alcohol/week: 9.1 standard drinks of alcohol Types: 7 Mixed Drinks per week Comment: 1 drink of vodka daily per pt 08/29/2023 Drug use: No MEDICATIONS: Prior to Admission medications as of 08/29/23 0745 Medication Sig Last Dose Taking amLODIPine (NORVASC) 10 mg tablet Take 10 mg by mouth once daily. Taking Yes atorvastatin (LIPITOR) 40 mg tablet Take 40 mg by mouth. Taking Yes lisinopril (ZESTRIL) 40 mg tablet Take 40 mg by mouth. Taking Yes atenolol (TENORMIN) 50 mg tablet Take 1 tablet by mouth once daily. Unknown Dosage. Taking Yes FAMOTIDINE (PEPCID ORAL) Take 1 tablet by mouth once daily. Unknown Dosage. Taking Yes multivitamin ORAL tablet Take 1 tablet by mouth once daily. Taking Yes Medication Comments documented by Audra Carl on 11/22/2011 at 0950. The patient is taking Toprol but unsure of the dose. Audra Carl Ma CURRENT ALLERGIES: ALLERGIES No Known Allergies COVID VACCINATION STATUS: Not vaccinated REVIEW OF SYSTEMS: PAIN ASSESSMENT: Pain Pain Level: 5 Pain Location: Knee-Right Description: Aching Duration Units: Years Frequency: Intermittent Intervention/Comfort measure: Declined General: No weight loss, malaise or fevers. Neuro: Negative for seizures, strokes. Respiratory: No history of current cough or dyspnea, or pneumonia in the past 6 weeks. No history of respiratory/pulmonary symptoms or problems. Cardiovascular: + HTN, HLD, Tricuspid regurgitation, Pulmonary HTN, Dilated aorta. Negative for DVT/PE, PA, Cardiac surgery or stents. Denies current chest pain, palpitations, fluttering. GI: + GERD. Negative for Nausea, Vomiting, Abdominal pain, Liver disease, IBS : No history of dysuria, frequency or incontinence,, stones or chronic kidney disease Endocrine: No history of diabetes. Has not taken steroids within the past 30 days. No history of endocrinological symptoms or problems. Hematology: No history of bleeding or clotting disorder. Pt is not taking anti-coagulation or platelet medications. No history of hematological symptoms or problems. Oncology: Hx of prostate cancer. Psych: No history of psychiatric symptoms or problems. Musculoskeletal: See HPI Skin: Negative for lesions, rash and itching. Objective PHYSICAL EXAM: VITALS: BP 139/85 Pulse 64 Temp (Src) 97.9 (Oral) Resp 18 Ht 6' 1 (1.85m) Wt 212 lb 6.4 oz (96.3kg) SpO2 100% BMI 28.03 kg/(m2). General: Alert and oriented, No acute distress. Body mass index is 28.02 kg/m?. Skin: Normal color, no rash, no lesions. HEENT: EOM, pupils equal, round and reactive. Cardiovascular: Normal S1 AND S2. Pulse regular. Lungs: Normal breath sounds, no wheezes or crackles. Extremities: Joint tenderness. Neurological: Normal cognition and motor skills. Pulses: Carotid and radial pulses normal +2. Diagnostic tests revi (more content not included)... Normal [facility] Iron and Iron binding capaci ty panelon 08-29-2023 Iron [Mass/Vol] 43 ug/dL 41 - 186 ug/dL [facility] Iron binding capacity [Mass/Vol] 308 ug/dL 232 - 386 ug/dL [facility] Iron/TIBC [Molar ratio] 14.0 % Low 15.0 - 57.0 % [facility] Iron [Mass/Vol] 43 ug/dL Normal 41-186 [facility] Comment on above: Order Comment: Speci men Type: BLOOD SPECIMENOrdering Facility: [facility] Address: [address] [place] [address] Performed By: #### 2 4321-2, 05694-8, 2276-01 ####[facility] LABCLIA [id number] [place] [address] [place] Iron binding capacity [Mass/Vol] 308 ug/dL Normal 232-386 [facility] Comment on above: Order Comment: Speci men Type: BLOOD SPECIMENOrdering Facility: [facility] Address: [address] [place] [address] Performed By: #### 2 4321-2, 79013-8, 2276-01 ####[facility] LABCLIA [id number] [place] [id number] [place] Iron/TIBC [Molar ratio] 14.0 % Low 15.0-57.0 [facility] Comment on above: Order Comment: Speci men Type: BLOOD SPECIMENOrdering Facility: [facility] Address: [address] [place] [address] Performed By: #### 2 4321-2, 95888-3, 2276-01 ####[facility] LABCLIA [id number] [address] [place] TYPE AND SCREEN,30 DAY[place] ABO A Normal [facility] Comment on above: Order Comment: Speci men Type: BLOOD SPECIMENOrdering Facility: [facility] Address: [address] [place] [address] Performed By: #### T SCR30 ####[facility] B[facility] BANKCLIA [id number] [address] [place] HISTORICAL AB SCR STATUS Negative Normal [facility] Comment on above: Order Comment: Speci men Type: BLOOD SPECIMENOrdering Facility: [facility] Address: [address] [place] [address] Performed By: #### T SCR30 ####[facility] BANKCLIA [id number] [address] [place] Rh Nom (Bld) Positive Normal [facility] Comment on above: Order Comment: Speci men Type: BLOOD SPECIMENOrdering Facility: [facility] Address: [address] [place] [address] Performed By: #### T SCR30 ####[facility] B[facility] BANKCLIA [id number] [address] [place] XR KNEE 4V AP/PA BOTH+LAT/ME R RTon 08-29-2023 XR KNEE 4V AP/PA BOTH+LAT/ALVARO RT * * *Final Report* * * DATE OF EXAM: Aug 29 2023 9:39AM GABRIELLA 5203 - XR KNEE 4V AP/PA BOTH+LAT/ALVARO RT / PROCEDURE REASON: Primary osteoarthritis of right knee * * * * Physician Interpretation * * * * HISTORY: Primary osteoarthritis of right knee TECHNIQUE: 4 views right knee COMPARISON: 06/07/2023 RESULT: Right knee: There is severe medial compartment narrowing with subchondral sclerosis and marginal osteophyte formation. Normal lateral joint space compartment with tiny marginal osteophyte formation. There is similar-appearing mild patellofemoral compartment degenerative change with marginal osteophytes without significant joint space narrowing. Small joint effusion. No acute fracture. Unchanged appearing total left knee arthroplasty. IMPRESSION: NO ACUTE BONY ABNORMALITY OR SIGNIFICANT INTERVAL CHANGE DEGENERATIVE CHANGE OF THE RIGHT KNEE SEVERE IN THE MEDIAL COMPARTMENT Manager Completions: VI Transcribe Date/Time: Aug 29 2023 9:43A Dictated by : ADOLFO MAYNARD MD This examination was interpreted and the report reviewed and electronically signed by: ADOLFO MAYNARD MD on Aug 29 2023 9:44AM EST [id number] Normal [facility] XR KNEE GENERAL 4V AP BOTH/P A BOTH/LAT/MERC RIGHTon 08-29-2023 [facility] CNPNon 08-21-2023 CNPN Telephone (ORTHMN) RONNIE ABEBE ([id number]) 1950 M Date Time Provider Department 08/21/23 TRESA MERA During your visit today, we recorded the following information about you: Tresa Mera LSW 08/21/2023 11:45 AM Signed ORTHOPAEDIC COORDINATION OF CARE Pre-Op Assessment Discharge Disposition (Planned): Home with Home Health Discharge Transportation: Car PRIMARY CARE PHYSICIAN: Merline Fuller MD OR Surgery Date: 09/04/2023 [facility] Appointment: 09/04/2023 Joint: Jointtype: Knee Side: right Health Insurance: Medicare or MEDICARE RAILROAD PB ONLY Primary Contact: Extended Emergency Contact Information Primary Emergency Contact: Isabel Abebe Mobile Relation: Spouse Have you had joint replacement surgery before?: Yes: Left knee Date: April of 2023 Social: Pre-Hospital Baseline Mental Status: Alert AND Oriented Informant: Self Living Arrangement: Home Who able to assist you at home once you discharge? Spouse Are they available for at least 2 weeks? Yes Stairs: One story home No stairs to enter home Bedroom Location: First Bathroom Location: First Do you have problems that affect your ability to perform normal activities of daily living such as bathing, dressing, or toileting yourself? No = 0 What is your current functional status?: Perform ADLs independently Are you able to afford your medications/Food? Yes Social Determinants of Health Tobacco Use: Low Risk (04/29/2023) Patient History Smoking Tobacco Use: Never Smokeless Tobacco Use: Never Passive Exposure: Never Alcohol Use: Not At Risk (08/21/2023) AUDIT-C Frequency of Alcohol Consumption: 4 or more times a week Average Number of Drinks: 1 or 2 Frequency of Binge Drinking: Never Financial Resource Strain: Low Risk (08/21/2023) Overall Financial Resource Strain (CARDIA) Difficulty of Paying Living Expenses: Not very hard Food Insecurity: No Food Insecurity (08/21/2023) Hunger Vital Sign Worried About Running Out of Food in the Last Year: Never true Ran Out of Food in the Last Year: Never true Transportation Needs: No Transportation Needs (08/21/2023) PRAPARE - Transportation Lack of Transportation (Medical): No Lack of Transportation (Non-Medical): No Physical Activity: Sufficiently Active (08/21/2023) Exercise Vital Sign Days of Exercise per Week: 3 days Minutes of Exercise per Session: 150+ min Stress: No Stress Concern Present (08/21/2023) [facility] [employer] [place] [employer] - Occupational Stress Questionnaire Feeling of Stress : Only a little Social Connections: Socially Integrated (08/21/2023) Social Connection and Isolation Panel [NHANES] Frequency of Communication with Friends and Family: More than three times a week Frequency of Social Gatherings with Friends and Family: Once a week Attends [employer] Services: 1 to 4 times per year Active Member of Clubs or Organizations: Yes Attends Club or Organization Meetings: More than 4 times per year Marital Status: Intimate Partner Violence: Not At Risk (08/21/2023) Humiliation, Afraid, Rape, and Kick questionnaire Fear of Current or Ex-Partner: No Emotionally Abused: No Physically Abused: No Sexually Abused: No Depression: Not at risk (08/21/2023) PHQ-2 PHQ-2 Score: 0 Housing Stability: Low Risk (08/21/2023) Housing Stability Vital Sign Unable to Pay for Housing in the Last Year: No Number of Places Lived in the Last Year: 1 Unstable Housing in the Last Year: No Utilities: Not At Risk (08/21/2023) [facility] Utilities Threatened with loss of utilities: No Area Deprivation Index: Medium Risk (04/29/2023) Area Deprivation Index National Score (1-100), lower number is lower risk: 73 State Score (1-10), lower number is lower risk: 6 Data from: https://www.olga lidia coombs.medicine.[facility]/. Last address used for calculation: [address] [place] [address] Equipment: Do you currently use any equipment at home for your medical condition or to help you get around? None Patient has a walker, a cane and a shower chair for after surgery Active Services/Needs: None Transportation: Do you have reliable transportation to and from surgery/appointments?: Yes Who will provide discharge transportation: Spouse Will your ride be available for 1200 discharge time? Yes Office Visit Follow Up Did you receive the antiseptic wipes from your surgeon?s office? Yes Did you receive a prescription for an assistive device (walker or crutches) from your surgeon?s office and fill it or do you already have one at home? Yes Did you attend a joint education class/Watched video? Did you read the education book provided to you? Yes Have you let your PCP know you are having a joint replacement surgery? Yes If you are currently being seen by pain management, are they aware you are having a joint re (more content not included)... Normal [facility] CNOVon 06-07-2023 CNOV Office Visit (ORTHMN ) RONNIE ABEBE ([id number]) 1950 [place] Date Time Provider Department 06/07/23 10:00 AM LUMA GARCIA ORTHMN During your visit today, we recorded the following information about you: Luma Garcia PA-C 06/07/2023 12:30 PM Signed Ortho Knee Follow Up Note Narrative Referring Provider: No referring provider defined for this encounter. PCP: Merline Fuller MD ====== IMPRESSION/PLAN: ====== 73 year old s/p Left 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 completed on 05/07/2023. Recent Surgeries this specialty 05/07/2023 (4w, 3d) ROBOTIC ASSISTED TOTAL KNEE ARTHROPLASTY; COMPUTER ASSIST MUSCULOSKETAL SURG NAVIGATION ORTHO PROCED W/IMAGE GUIDANCE BASED ON CT/MRI IMAGES (Left; Left) Shaji Bishop MD; Malcom Azul MD; Blanco Meyer MD - Posted PAIN EVALUATION 06/02/2023 1821 Pain Level: 3 Pain Location: Knee-Left Description: Aching;Throbbing IMPRESSION: Excellent early outcome Incision well healed PLAN: Continue current conservative treatment. May progress WBAT Order for outpatient PT. Discussed Right TKA with Dr. Bishop 09/04/23 Patient Reassurance: Patient reassured and supported. All questions answered. Follow up 3 months No X-Rays Needed Ronnie Abebe presents today for a a routine 1st post-op visit ACTIVE PROBLEM LIST Malignant Neoplasm of Prostate (Hcc) Hypertension Hyperlipidemia Gerd (Gastroesophageal Reflux Disease) Arthritis Primary Osteoarthritis of Left Knee Status post op: BMI: There is no height or weight on file to calculate BMI. Post-operative recovery was complicated by uneventful/none. Readmission(s) since surgery (90 days post)? No ED Visits AND Hospitalizations - Last 180 days 05/07/23 Shaji Bishop MD, [id number] Primary osteoarthritis of left knee, Admission (Discharged) Patient rates their condition as improving. Does the patient still experience pain? see MIDAS Form Post Op discharge patient location: in home. Functional Assessment is as follows: is ready to begin outpatient PT. Functional difficulties: None. Pain Medication: Non-narcotic Current Opioids Analgesic Opioid Agonists Start End oxyCODONE IR (ROXICODONE) 5 mg immediate release tablet 05/14/2023 Sig: Take one to two tablets by mouth every four hours as needed for pain Do not start before May 14, 2023. Earliest Fill Date: 05/14/2023 Currently Ambulating with: no ambulation aides EXAM: POST OP KNEE Left Post-Operative Knee Ambulates with a: uses: a cane. SKIN: Appropriate postop appearance and No evidence of erythema, warmth, discharge or drainage. Range of motion is 0 degrees in extension and 120 degrees of flexion. Extension La degrees Pain with ROM:No There is Slight effusion. Mal-alignment: No Tender to the palpation of Medial femoral condyle Neurovascular Status: Sensation Intact, Moves foot and ankle up AND down, and 2+ dorsalis pedis Stability:Anterior/Pos terior- Yes, stable and Varus/Valgus- Yes, stable Quad strength: improving Imagin. Implants are well aligned. Implants are well fixed. There is no evidence of loosening. Provider: Luma Garcia PA-C Completed by: Luma Garcia PA-C Allergies As of Date: 06/07/2023 (No Known Allergies) Date Reviewed: 06/07/2023 Reviewed by: Vivien Valencia MA - Fully Assessed Reason for Visit: Post Op [174] Cmt: Most discomfort is coming from behind the knee and the calf muscle. Primary Visit Diagnosis:S/P total knee arthroplasty, left [Z96.652] Other Visit Diagnosis:Acute post-operative pain [G89.18] Order(s):CONSULT TO PHYSICAL THERAPY [9048] Order #: [id number]: 1 FUTURE meloxicam (MOBIC) 15 mg tabletTake 1 tablet by mouth daily with food.Disp: 30 tabletRfl: 2 Prescriptions as of 06/10/2023 - meloxicam (MOBIC) 15 mg tablet Take 1 tablet by mouth daily with food. - oxyCODONE IR (ROXICODONE) 5 mg immediate release tablet Take one to two tablets by mouth every four hours as needed for pain Do not start before May 14, 2023. - aspirin, enteric coated (ECOTRIN LOW STRENGTH) 81 mg EC tablet Take 1 tablet by mouth twice daily. - ondansetron orally disintegrating (ZOFRAN ODT) 4 mg disintegrating tablet Dissolve 1 tablet on the tongue every 8 hours as needed for nausea/vomiting. - atorvastatin (LIPITOR) 40 mg tablet Take 40 mg by mouth. - lisinopril (ZESTRIL) 40 mg tablet Take 40 mg by mouth. - Vardenafil HCl (LEVITRA) 20 mg ORAL tablet Take 20 mg by mouth as needed. 30-60 minutes before sexual intercourse. - ATENOLOL ORAL Take 1 tablet by mouth once daily. Unknown Dosage. - AMLODIPINE BESYLATE/BENAZEPRIL (LOTREL ORAL) Take 1 tablet by mouth once daily. Unknown Dosage. - ROSUVASTATIN CALCIUM (CRESTOR ORAL) Take 1 tablet by mouth once (more content not included)... [facility] XR KNEE 3V AP/LAT/MERCHANT L Ton 06-07-2023 XR KNEE 3V AP/LAT/MERCHANT LT * * *Final Report* * * DATE OF EXAM: Jun 07 2023 9:31AM AOX 5208 - XR KNEE 3V AP/LAT/MERCHANT LT / PROCEDURE REASON: Arthritis of left knee * * * * Physician Interpretation * * * * HISTORY (as given from clinical provider): Arthritis of left knee . Additional history provided by the performing technologist (if any): 1 month post op TECHNIQUE: XR KNEE 3V AP/LAT/MERCHANT LT COMPARISON: 02/01/2023 RESULT: Status post total knee arthroplasty. Expected postsurgical appearance. No other significant abnormality. Manager Completions: VI Transcribe Date/Time: Jun 07 2023 9:37A Dictated by : JAMEL RICKETTS MD This examination was interpreted and the report reviewed and electronically signed by: JAMEL RICKETTS MD on Jun 07 2023 9:38AM EST [id number] [facility] XR KNEE POST OP 3V AP/LAT/ME RCHANT LEFTon 06-07-2023 [facility] Charissa 05-09-2023 SHAISTA Telephone (ORTHMN) RONNIE ABEBE ([id number]) 1950 M Date Time Provider Department 05/09/23 NICOLE MEEKS During your visit today, we recorded the following information about you: Nicole Meeks RN 05/09/2023 12:50 PM Signed Patient has been identified by name and date of : Yes, Provider Nicole Meeks RN Date 05/09/2023 Time 12:45pm Surgeon Dr. Bishop Surgery Left 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 Date of Surgery 05/07/2023 Date of Discharge 05/07/2023 Support person at home yes Weight Bearing status: PWB Activity Up with Walker, Home Health Pain Level on a pain scale 0-10 8/10 Current pain regimen Oxycodone two tablets every four hours and Tylenol as ordered and meloxicam as ordered. Educated on taking two Oxy for severe pain, one for moderate and strethcing the time between doses if mild. Icing and Elevating Educated on how to properly ice and elevate and recommended doing so for 20-30 minutes at least 6-8 times per day Constipation Reviewed how to take laxative, drink plenty of fluids, add fiber, prunes and walking hourly will help Blood Thinner Aspirin 81mg twice daily, patient is taking Incision Educated on incision care Dressings Clean, Dry, Intact Patient concerns None. Provided office number to call for any refill needs, or questions Follow up appointments 06/07/2023 Patient aware Nicole Meeks RN Allergies As of Date: 05/09/2023 (No Known Allergies) Date Reviewed: 05/07/2023 Reviewed by: Kaylie Mcpherson, RN - Fully Assessed Reason for Visit: Post Op [174] Prescriptions as of 05/09/2023 - aspirin, enteric coated (ECOTRIN LOW STRENGTH) 81 mg EC tablet Take 1 tablet by mouth twice daily. - meloxicam (MOBIC) 7.5 mg tablet Take 1 tablet by mouth once daily for 14 days. - ondansetron orally disintegrating (ZOFRAN ODT) 4 mg disintegrating tablet Dissolve 1 tablet on the tongue every 8 hours as needed for nausea/vomiting. - oxyCODONE IR (ROXICODONE) 5 mg immediate release tablet Take 1 to 2 tablets by mouth every 4 hours as needed for pain for up to 14 days. - acetaminophen (TYLENOL EXTRA STRENGTH) 500 mg tablet Take 2 tablets by mouth every 8 hours for 14 days. - bisacodyl EC (DULCOLAX) 5 mg EC tablet Take 1 tablet by mouth once daily as needed for constipation for up to 14 days. - atorvastatin (LIPITOR) 40 mg tablet Take 40 mg by mouth. - lisinopril (ZESTRIL) 40 mg tablet Take 40 mg by mouth. - Vardenafil HCl (LEVITRA) 20 mg ORAL tablet Take 20 mg by mouth as needed. 30-60 minutes before sexual intercourse. - ATENOLOL ORAL Take 1 tablet by mouth once daily. Unknown Dosage. - AMLODIPINE BESYLATE/BENAZEPRIL (LOTREL ORAL) Take 1 tablet by mouth once daily. Unknown Dosage. - ROSUVASTATIN CALCIUM (CRESTOR ORAL) Take 1 tablet by mouth once daily. Unknown Dosage. - FAMOTIDINE (PEPCID ORAL) Take 1 tablet by mouth once daily. Unknown Dosage. - multivitamin ORAL tablet Take 1 tablet by mouth once daily. - Glucosamine Sulfate 500 mg tab Take 1 tablet by mouth once daily. Facility-Administered Medications as of 05/09/2023 - perflutren lipid microspheres 1.3 mL in NaCl (PF) 0.9% 10 mL injection (DEFINITY) - sodium chloride 0.9 % (flush) 10 mL (BD POSIFLUSH) Meds Comments as of 11/22/2011: The patient is taking Toprol but unsure of the dose. Audra Carl Ma Problem List As Of Date 05/09/2023 Noted Resolved Malignant neoplasm of prostate [C61] 08/20/2011 Hypertension [I10] 11/13/2011 Hyperlipidemia [E78.5] 11/13/2011 GERD (gastroesophageal reflux disease) [K21.9] 11/13/2011 Arthritis [M19.90] 11/13/2011 Primary osteoarthritis of left knee [M17.12] 05/07/2023 Encounter Status:Closed by NICOLE MEEKS RN on 05/09/23 [facility] ANES POSTPROC EVALon 023 ANES POSTPROC EVAL HNO ID: [id number] Author: Vineet Martinez MD Service: ? Author Type: Anesthesiologist Type: Anesthesia Postprocedure Evaluation Filed: 05/07/2023 2:00 PM Note Text: POST ANESTHESIA EVALUATION NOTE : 1950 Procedure Summary Date: 05/07/23 [address]hesia Start: 822 Anesthesia Stop: 1131 Procedure: ROBOTIC ASSISTED TOTAL KNEE ARTHROPLASTY (Left: Knee) Diagnosis: Arthritis of left knee (Arthritis of left knee [M17.12]) Surgeons: Shaji Bishop MD Responsible Provider: Vineet Martinez MD Anesthesia Type: spinal ASA Status: 3 Anesthesia Type: spinal Last Vitals Vitals Value Taken Time BP 168/83 05/07/23 1157 Temp 36.6 ?C (97.9 ?F) 05/07/23 1130 Pulse 60 05/07/23 1157 Resp 20 05/07/23 1157 SpO2 98 % 05/07/23 1157 Vitals shown include unvalidated device data. Post Anesthesia Patient Status Patient Evaluation: bedside. Anticipated Disposition: inpatient floor planned admission. Neurological Status: aware and responsive. Pulmonary Status: breathing comfortably on supplemental oxygen Airway Control: returned to baseline unsupported. Cardiovascular Status: stable. Pain Management: clinically adequate Postoperative Hydration: acceptable. Intraoperative Events: no significant anesthesia events Post Operative Nausea/Vomiting Status: no significant post operative nausea or vomiting Recommendation: continue current plan of care. Anesthesia Observations No Documentation SIGNATURE: Vineet Hensley MD PATIENT NAME: Ronnie Abebe DATE: May 07, 2023 TIME: 11:58 AM CSN: [id number] [facility] ANES PRE-OPon 05-07-2023 ANES PRE-OP HNO ID: [id number] Author: Vineet Hensley MD Service: ? Author Type: Anesthesiologist Type: Anesthesia Preprocedure Evaluation Filed: 05/07/2023 8:36 AM Note Text: ANESTHESIOLOGY DAY OF SURGERY NOTE : 1950 Procedure Information Anesthesia Start Date/Time: 05/07/23822 Procedure: ROBOTIC ASSISTED TOTAL KNEE ARTHROPLASTY (Left: Knee) Location: [address] Surgeons: Shaji Bishop MD Estimated body mass index is 28.37 kg/m? as calculated from the following: Height as of this encounter: 185.4 cm (6' 1 ). Weight as of this encounter: 97.5 kg (215 lb). Most recent hematocrit and potassium results: Hematocrit 44.8 04/29/2023 Potassium 5.2 04/29/2023 Relevant Problems CARDIO (+) Hypertension GI (+) GERD (gastroesophageal reflux disease) Other (+) Arthritis I - PHYSICAL EVALUATION AIRWAY Patient intubated: No. Tracheostomy tube not present Mallampati: III. TM distance: >3 FB. Neck ROM: full ROM without neurological symptoms. Mouth opening: adequate. Short neck: yes. Thick neck: yes Esquivel present: no DENTAL Dental findings: missing tooth/teeth and poor dentition. Additional exam findings: no II - ANESTHESIA PLAN ASA Score: 3 Anesthetic Plan: spinal NPO Status: adequate Beta Meena Administration of chronic beta meena medication planned. Monitoring Plan Monitoring plan: standard ASA. Post Procedure Analgesic Plan Postoperative analgesic plan: parenteral or oral opioids. Informed Consent Anesthetic risks, benefits, alternatives, personnel and consent discussed: yes. Patient / Responsible Libertarian agrees to proceed: yes Patient / Surrogate agrees to blood products: Yes Significant changes in the patient condition since the History and Physical, not otherwise documented in primary service progress note: no. Potential Anesthesia issues that may suggest increased risk of complications or contraindication to planned procedure: potential difficult IV access. Vitals Value Taken Time BP 126/82 05/07/23 0746 Pulse 60 05/07/23 0818 Resp 22 05/07/23 0818 Temp 36.5 ?C (97.7 ?F) 05/07/23 0552 SpO2 96 % 05/07/23 0751 Facility-Administered Medications as of 05/07/2023 Medication Dose Route Frequency - lidocaine (PF) 10 mg/mL (1 %) 1-2 mg injection (XYLOCAINE) 0.1-0.2 mL INTRADERMAL PRN Or - lidocaine 1% 0.25 mL subcutaneous j-tip syringe (XYLOCAINE) 0.25 mL SUBCUTANEOUS PRN - lactated ringers iv infusion 5-30 mL/hr INTRAVENOUS CONTINUOUS - NaCl 0.9% iv flush bag 20 mL INTRAVENOUS PRN - tranexamic acid (CYKLOKAPRON) in NaCl 0.7% 1,000 mg 100 mL 1,000 mg INTRAVENOUS Pre-Op Once - tranexamic acid (CYKLOKAPRON) in NaCl 0.7% 1,000 mg 100 mL 1,000 mg INTRAVENOUS ONCE - ropivacaine 2.46 mg/mL-EPINEPHrine 0.005 mg/mL-cloNIDine 0.0008 mg/mL-ketorolac 0.3 mg/mL 50 mL injection (R.E.C.K.) 50 mL periarticular ONCE - ceFAZolin iv piggyback 2 g in D5W (iso-osmotic) 100 mL (ANCEF) 2 g INTRAVENOUS Pre-Op Once Outpatient Medications as of 05/07/2023 Medication Sig - atorvastatin (LIPITOR) 40 mg tablet Take 40 mg by mouth. - lisinopril (ZESTRIL) 40 mg tablet Take 40 mg by mouth. - ATENOLOL ORAL Take 1 tablet by mouth once daily. Unknown Dosage. - AMLODIPINE BESYLATE/BENAZEPRIL (LOTREL ORAL) Take 1 tablet by mouth once daily. Unknown Dosage. - FAMOTIDINE (PEPCID ORAL) Take 1 tablet by mouth once daily. Unknown Dosage. - Vardenafil HCl (LEVITRA) 20 mg ORAL tablet Take 20 mg by mouth as needed. 30-60 minutes before sexual intercourse. (Patient not taking: Reported on 04/29/2023) - ROSUVASTATIN CALCIUM (CRESTOR ORAL) Take 1 tablet by mouth once daily. Unknown Dosage. (Patient not taking: Reported on 04/29/2023) - multivitamin ORAL tablet Take 1 tablet by mouth once daily. - Glucosamine Sulfate 500 mg tab Take 1 tablet by mouth once daily. I have interviewed and examined the patient. I have reviewed the medical record and/or the pre-anesthesia evaluation, pertinent labs, and test results. This contains updated information obtained within 48 hours of Surgery/Procedure. SIGNATURE: Vineet Hensley MD PATIENT NAME: Ronnie Abebe DATE: May 07, 2023 TIME: 8:36 AM CSN: [id number] [facility] BRIEF OP NOTon 05-07-2023 BRIEF OP NOT HNO ID: [id number] Author: Blanco Maza MD Service: Orthopaedic Surgery Author Type: Resident Type: Brief Op Note Filed: 05/07/2023 11:17 AM Note Text: BRIEF OPERATIVE / PROCEDURE NOTE LOG ID: [id number] SURGERY/PROCEDURE DATE: 05/07/2023 INCISION/PROCEDURE START TIME: 9:00 AM INCISION CLOSE/PROCEDURE END TIME: 11:10 AM SURGEON(S)/PROCEDURALI ST(S) AND STAFFING MANAGER(S): Surgeon(s) and Role: * Shaji Bishop MD - Primary * Blanco Meeyr MD - Resident - Assisting * Malcom Azul MD - Fellow Physician Typewriter Assembly And Parts Inspector: Luma Garcia PA-C Deputy County Clerk: Kaden Raman (), SURGERY/PROCEDURE(S): Left robotic-assisted total knee arthroplasty ANESTHESIA: Spinal FINDINGS: Left knee osteoarthritis ESTIMATED BLOOD LOSS: 100 mls SPECIMENS: None COMPLICATIONS: None CLOSURE TECHNIQUE: Primary PRE-OP/PRE-PROCEDURE DIAGNOSIS: Left knee osteoarthritis POST-OP/POST-PROCEDURE DIAGNOSIS: Same as Preop SIGNATURE: Blanco Maza MD PATIENT NAME: Ronnie Abebe DATE: May 07, 2023 TIME: 11:16 AM [facility] HNO ID: [id number] Author: Malcom Azul MD Service: Orthopaedic Surgery Author Type: Physician Type: Discharge Summary Filed: 05/15/2023 10:20 AM Note Text: ORTHOPEDIC SURGERY DISCHARGE SUMMARY ADMISSION DATE: 05/07/2023 DISCHARGE DATE: 05/07/2023 Attending Physician: Shaji Bishop MD Reason for Hospitalization: Left knee OA Admitting Diagnosis: Knee Advanced Degenerative Joint Disease Discharge Diagnosis: Knee Advanced Degenerative Joint Disease Additional Diagnoses: ACTIVE PROBLEM LIST Malignant Neoplasm of Prostate (Hcc) Hypertension Hyperlipidemia Gerd (Gastroesophageal Reflux Disease) Arthritis Primary Osteoarthritis of Left Knee Surgeries During Hospitalization: Procedure(s) (LRB): ROBOTIC ASSISTED TOTAL KNEE ARTHROPLASTY (Left) Procedures During Hospitalization: none Consultations: Physical Therapy Case Management Hospital Course: The patient is a 73 year old male who has been followed by Shaji Travis MD, MD in clinic for knee OA. It was determined he would benefit from surgery. The procedure, its risks, benefits, and potential complications were discussed in detail with the patient prior to surgery. Understanding of all topics was conveyed by the patient, and consent was given for surgery. The patient was electively admitted to the [facility] on 05/07/2023. Surgery was scheduled and on 05/07/2023 he underwent a Procedure(s) (LRB): ROBOTIC ASSISTED TOTAL KNEE ARTHROPLASTY (Left) with GETA. The procedure was tolerated well and he was sent to the post operative recovery room in stable condition, where he also did well. He was subsequently sent to his hospital room for postoperative management. Once on the floor his postoperative course was unremarkable and he did well. His diet was advanced which he tolerated. His pain was well controlled on IV and PO meds; this was eventually transitioned to oral medication alone prior to discharge. He worked with Physical and Occupational Therapy who recommended he be discharged home. Complete and comprehensive discharge instructions were provided to the patient as well as necessary prescriptions. The patient had no further questions and was advised to call with any questions, concerns, or problems. Patient was hemodynamically stable postoperatively. Relevant labs included: Hemoglobin (g/dL) Date Value 04/29/2023 14.1 11/22/2011 12.0 (L) 11/15/2011 11.7 (L) Hematocrit (%) Date Value 04/29/2023 44.8 11/22/2011 37.3 (L) 11/15/2011 36.1 (L) Discharge Antibiotics: None Prior to surgery the patient was treated with antibiotics and continued with antibiotics 24 hours postoperatively Transfers: PACU and then to the hospital surgical floor when PACU criteria was met. DVT Prophylaxis: Aspirin to reduce risk of bleeding Pain Control: Oral narcotics Complications: Continued throughout the hospital course without complications. Patient Condition @ Discharge: Stable Discharge Disposition: Home with Relative Other Information: None Discharge Activity/Weight Bearing Status: Weight bearing as tolerated Information Provided to Patient: none The patient was instructed to follow-up as below Future Appointments Date Time Provider Department Center 06/07/2023 9:20 AM [facility] 06/07/2023 10:00 AM Luma Garcia PA-C [facility] Discharge Medications: Medication List ASK your doctor about these medications ATENOLOL ORAL atorvastatin 40 mg tablet Commonly known as: LIPITOR CRESTOR ORAL Glucosamine Sulfate 500 mg Tab lisinopril 40 mg tablet Commonly known as: ZESTRIL LOTREL ORAL multivitamin tablet mupirocin 2 % ointment Commonly known as: BACTROBAN Place a dab on a q-tip and wipe inside each nostril twice daily for five days and then morning of your surgery. PEPCID ORAL Vardenafil HCl 20 mg tablet Commonly known as: LEVITRA Take 20 mg by mouth as needed. 30-60 minutes before sexual intercourse. SIGNATURE: Malcom Azul MD PATIENT NAME: Ronnie Abebe DATE: May 07, 2023 TIME: 8:12 AM PAGER: [phone] [facility] CONSULTon 05-07-2023 CONSULT HNO ID: [id number] Author: Michelet Hsu MD Service: Anesthesiology Author Type: Resident Type: Consults Filed: 05/07/2023 12:37 PM Note Text: Attestation signed by Elizabeth King MD at 05/07/2023 2:44 PM Attending Note I evaluated the patient and personally participated in the murguia components. I agree with the resident's findings and plan as documented and have discussed the case and management of the patient's care with the resident. Signature: Elizabeth King MD Date: 05/07/2023 Time: 2:44 PM Anesthesia Pain Service Consult Note PATIENT NAME: Ronnie Abebe : 1950 Consults Service Date Time: 05/07/2023 5:56 AM Service Requesting Consult: Orthopedics Opinion/Advice Regarding: Consultation regarding post operative pain following TKR surgery. The surgeon requesting our opinion regarding the feasibility for nerve blocks. Subjective Chief Complaint: Post-operative (Expected moderate to sever postoperative pain) INTERVAL HPI Ronnie Abebe is a 73 year old male who is POD #0,S/P ROBOTIC ASSISTED TOTAL KNEE ARTHROPLASTY who reports pain that began Anticipating Postoperative pain following Knee surgery and is described as: Location of Pain: LLE Block Candidate for Pre-Op Block?: Yes Anticipated Block Type: Saphenous PDMP Verification: PDMP website checked and validated Plan Plan Discussed With: Patient A consult placed by the surgical team regarding post operative pain following TKR Expected pain is variable following this incision but usually it is a moderate to sever pain , sharp and stabbing. May restrict PT post surgery. Femoral vs. Adductor canal block , is considered a relatively safe procedure with minimal complication ( rare infection or bleeding ) however, it reduce the amount of pain as well as the need for narcotics significantly and change the pattern of pain to a tolerable , pressure type of pain. Discussed the Risks , benefits and alternatives of nerve block in addition to multimodal analgesia. The patient agree to proceed. Objective APS Progress Note ROS BP 158/89 Pulse 64 Temp 36.5 ?C (97.7 ?F) (Temporal Artery) Resp 18 Ht 185.4 cm (6' 1 ) Wt 97.5 kg (215 lb) SpO2 98% BMI 28.37 kg/m? Physical Exam Sensory/Motor Exam No intake or output data in the 24 hours ending 05/07/23 0556 Lab Results: APTT 26.3 11/09/2011 PT Sec 10.6 11/09/2011 PT INR 1.0 11/09/2011 Hemoglobin 14.1 04/29/2023 Hematocrit 44.8 04/29/2023 Platelet Count 272 04/29/2023 Radiology: N/A Lines/Drains/Airways: Lines, Drains, and Airways None Problem List *Primary osteoarthritis of left knee (05/07/2023) Past Medical History PAST MEDICAL HISTORY Diagnosis Date HTN (hypertension) Hyperlipidemia Malignant neoplasm of prostate (HCC) Past Surgical History PAST SURGICAL HISTORY Procedure Laterality Date NONE OTHER SURGICAL HISTORY (PLEASE SPECIFY) HX 2011 robotic prostatectomy Family History FAMILY HISTORY Problem Relation Age of Onset other (Lung Cancer [Other]) Father other (Mesothelioma [Other]) Mother Social History Social History Tobacco Use Smoking status: Never Passive exposure: Never Smokeless tobacco: Never Substance Use Topics Alcohol use: Yes Comment: 1 drink of vodka daily per pt 04/29/2023 Drug use: No Prior to Admission Medications perflutren lipid microspheres 1.3 mL in NaCl (PF) 0.9% 10 mL injection (DEFINITY), , INTRAVENOUS, DIRECTED PRN, Valeria Farmer MD sodium chloride 0.9 % (flush) 10 mL (BD POSIFLUSH), 10 mL, INTRAVENOUS, DIRECTED PRN, Valeria Farmer MD mupirocin (BACTROBAN) 2 % ointment, Place a dab on a q-tip and wipe inside each nostril twice daily for five days and then morning of your surgery., Disp: 1 g, Rfl: 0, 05/07/2023 atorvastatin (LIPITOR) 40 mg tablet, Take 40 mg by mouth., Disp: , Rfl: , 05/06/2023 at 0300 lisinopril (ZESTRIL) 40 mg tablet, Take 40 mg by mouth., Disp: , Rfl: , 05/06/2023 at 0300 ATENOLOL ORAL, Take 1 tablet by mouth once daily. Unknown Dosage. , Disp: , Rfl: , 05/06/2023 at 0300 AMLODIPINE BESYLATE/BENAZEPRIL (LOTREL ORAL), Take 1 tablet by mouth once daily. Unknown Dosage. , Disp: , Rfl: , 05/06/2023 at 0300 FAMOTIDINE (PEPCID ORAL), Take 1 tablet by mouth once daily. Unknown Dosage. , Disp: , Rfl: , 05/06/2023 at 0300 Vardenafil HCl (LEVITRA) 20 mg ORAL tablet, Take 20 mg by mouth as needed. 30-60 minutes before sexual intercourse. (Patient not taking: Reported on 04/29/2023), Disp: 10 tablet, Rfl: 10 ROSUVASTATIN CALCIUM (CRESTOR ORAL), Take 1 tablet by mouth once daily. Unknown Dosage. (Patient not taking: Reported on 04/29/2023), Disp: , Rfl: multivitamin ORAL tablet, Take 1 tablet by mouth once daily., Disp: , Rfl: , 05/02/2023 Glucosamine Sulfa (more content not included)... [facility] NURSING PROGon 05-07-2023 NURSING PROG HNO ID: [id number] Author: Raj Jarquin RN Service: ? Author Type: Registered Nurse Type: Nursing Progress Note Filed: 05/07/2023 12:38 PM Note Text: Admission/Transfer Note PATIENT NAME: Ronnie Abebe Patient Location: M081 006/M081-06 Room: [place] [id number] ([facility]-06) Patient admitted from PACU via bed in stable condition. Actions taken: Patient oriented to room, call light function, prescribed activities, and Patient rights. Patient belongings with patient. This note was completed by: Raj Enrique [facility] OPERATIVE NOon 05-07-2023 OPERATIVE NO HNO ID: [id number] Author: Shaji Bishop MD Service: Orthopaedic Surgery Author Type: Physician Type: Operative Report Filed: 05/08/2023 8:59 AM Note Text: [place] [id number] [place] OPERATIVE NOTE PATIENT NAME: Ronnie Abebe AGE: [age] year old LOG ID: [id number] SURGERY DATE: 05/07/2023 SURGEON AND ASSISTANTS: Surgeon(s) and Role: * Shaji Bishop MD - Primary * Blanco Meyer MD - Resident - Assisting * Malcom Azul MD - Fellow * SANTY Fraser, PADonatoC OPERATION: ROBOTIC LEFT TOTAL KNEE - PRESS-FIT CR for VARUS DEFORMITY ANESTHESIA: Spinal SPINAL + ADDUCTOR CANAL BLOCK PRE-OPERATIVE DIAGNOSIS: PRIMARY LEFT KNEE OSTEOARTHRITIS Pre-Op Diagnosis Codes:Arthritis of left knee [M17.12] POST-OPERATIVE DIAGNOSIS: PRIMARY LEFT KNEE OSTEOARTHRITIS Same as Pre-Op Diagnosis Codes:Arthritis of left knee [M17.12] BMI: Estimated body mass index is 28.37 kg/m? as calculated from the following: Height as of this encounter: 185.4 cm (6' 1 ). Weight as of this encounter: 97.5 kg (215 lb). OPERATIVE INDICATIONS: The patient is a 73 year old that has developed deformity in the left knee joint with X-rays evidence of tri-compartmental degeneration and varus angulation from predominantly medial wear and bone loss. Non-operative treatment and Physical Therapy have been attempted on the left, but have not improved or controlled the symptoms and pain that occurs during normal daily activities. Knee motion has also become limited and is restricting the patient. Robotic assisted left total knee arthroplasty was recommended. A CT-scan will be done pre-operatively for planning, segmentation, and precise intra-operative registration and robotically guided bone resection. Bone density and size are amenable to an uncemented press-fit knee arthroplasty. This was discussed with the patient in detail including the possibility of longer term tibial component fixation and less stress shielding. The risks, benefits and potential complications of the arthroplasty surgery were discussed with the patient in detail. Potential complications specifically related to primary knee replacement were discussed in detail and included but were not limited to bleeding problems, vessel damage, nerve injury, nerve dysfunction, infection, blood clots, and other complications known to occur with joint surgery. Specific details of the surgical procedure, hospitalization, recovery, rehabilitation, and long-term precautions were also presented. Pre-operative teaching was provided. Implant/prosthesis selection was outlined, and the many options available were explained; the final choice will be made at the time of the procedure to match the anatomy and condition of the bone, ligaments, tendons, and muscles. The patient was seen by [facility] for pre-operative optimization, and risk assessment. Garima-operative blood management and the potential for blood transfusion were discussed with risks and options clearly outlined. The patient has consented to the use of banked allogenic blood if medically necessary. Understanding of all topics was conveyed to me by the patient pre-operatively, and patient consent was given to proceed with the left total knee replacement. OPERATIVE FINDINGS: Severe tricompartmental wear and degeneration. ACL absent. Significant tricompartmental grade 3, 4 chondral changes were present, more medial than lateral. Medial meniscus was degenerative and torn. Lateral meniscus was degenerative but intact. The knee was lax medially due to bone loss on the tibia. MCL attenuated but intact. PCL intact. OPERATIVE PROCEDURE: The patient was identified and brought into the Operating Room by the anesthesia and nursing teams. Anesthesia and placement of an Adductor Canal block catheter was successfully performed. The patient was then positioned supine on the operating room table, and a Cash catheter was placed. Intravenous antibiotic prophylaxis dosing was confirmed. A tourniquet was applied to the left upper thigh. A full knee exam was done after anesthesia was in full effect. The left leg was prepped and draped in the usual sterile fashion. Tranexamic acid was used for blood conservation. The [employer] robot was prepared and draped. The Robotic Arm was located on the operative side, and the Camera Stand opposite the Robotic Arm. A surgical time-out was performed immediately preceding the incision with all personnel in the operating room; the patient identity was again confirmed, the left knee-surgical site and extremity were identified and confirmed, X-rays were reviewed, and availability of the appropriate surgical equipment was established. The left knee was exsanguinated and exposed using a limited anterior-midline skin incision. Dissection was carried down through skin and (more content not included)... Normal [facility] THERAPY NTon 05-07-2023 THERAPY NT HNO ID: [id number] Author: Valeria January, PT Service: Physical Therapy Author Type: Physical Therapist Type: Therapy (PT/OT/Speech/Resp) Filed: 05/07/2023 2:48 PM Note Text: Physical Therapy Evaluation SERVICE DATE: 05/07/2023 SERVICE TIME: 1300 to 1423 ROOM: [place] [address] Total Joint Replacement Discharge Readiness: Cleared from Physical Therapy Recommended Discharge Disposition: Home PT Recommended Discharge Disposition Comments: Patient would benefit from assistance at home due to recent left knee surgery. Anticipated Discharge Needs: Physical Assist at Home Physical Assist at Home for: Cleaning, Laundry, Meals, Stairs, Shopping, Transportation Recommended Discharge Equipment: No equipment needs anticipated PT 6 Clicks Score: 21 Precautions/Activity Restrictions: Weight Bearing Restrictions, 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 Extremity With Weight Bearing Restricted: Left Lower Extremity Left Lower Extremity Weight Bearing Status: 75% PWB Current Hospital Course: 73 year old male admitted for osteoarthritis of his left knee, s/p total knee arthroplasty. Reason for Hospital Admission: Post musculoskeletal surgery care. Relevant Past Medical History: HTN, HLD, Prostate cancer, s/p robotic prostatectomy, OA B knees. Response to Therapy Interventions: Good Participation in Activities, Requires Additional Time to Complete Activities Assessment Comments: Patient tolerated session well. Patient seen in the therapy department for stairs and car transfer training. Patients present during session for family training to assist patient with stairs and car transfer. Patient is appropriate for discharge home with assistance and Home PT when medically cleared. Continued Skilled Needs Due to: Functional Mobility/Skill Impairments Physical Therapy Problem List: Decreased Range Of Motion, Decreased Strength, Functional Mobility Impairment, Balance Impaired Treatment Interventions: Education, Joint Mobility, Strengthening, Functional Mobility Training, Balance Training Plan for Next Visit: Gait Training, Sit to Stand Transfers, Walker Training Home Environment Patient Lives With: Spouse Assistance Available: 24-Hour Entry To Home: Stairs, With Rail (Bilateral railings) Number Of Stairs Into Home: 3 Number Of Stairs To Bed/Bath: 0 Equipment Owned: Walker- Wheeled Prior Functional Level: Within Functional Limits Prior Functional Level Comments: Patient reports he was independent with mobility, working 3 days/week. Patient Report: I'm hoping to go home today. CURRENT FUNCTIONAL STATUS: Most recent performance Current Functional Mobility Assist Level Additional Information Rolling Supine to Sit Stand By Assistance multiple times Sit to Supine Stand By Assistance multiple times Scooting Stand By Assistance to/from edge of bed Sit to Stand Contact Guard Assistance 9instruciton for hand placement, safety Stand to Sit Contact Guard Assistance same as above Bed to Chair Contact Guard Assistance Bed To Chair Transfer Type: Stand Pivot Bed To Chair Transfer Equipment: Wheeled Walker Toilet/Commode Stand By Assistance Gait Contact Guard Assistance Gait Device: Wheeled Walker Gait Distance (feet): 80, 2x10, 30, 2x5 Gait slow, steady, verbal cues to sequence initially, improved with increased distance Stairs Contact Guard Assistance Stairs Device: Rail (bilateral) Number of Stairs: 4 Verbal cues to sequence. Curb Step Car Transfer Minimal Assistance assist for L LE Blank fletcher indicate activity not attempted Gait Deviations Left Lower Extremity: Weight bearing decreased, Step length decreased, Stance time decreased General Deviations/Observation s: Ana María decreased, Step length decreased, Flexed trunk posture Vital Signs Pulse: 65 SpO2: 95 % O2 Therapy: Room Air Supplemental Vital Signs: Orthostatic BP Comprehensive Orthostatic Vital Signs (Comprehensive) Sitting Pulse: 64 Sitting BP: 133/76 Standing Pulse: 69 Standing BP: 140/85 Exercise Exercise: Patient instructed to perform antiembolic exercises every hour while awake in bed. PT provided education to patient and spouse regarding performance of TKA supine exercises 2x/day, use of ice after exercises and PRN throughout the day. Balance: Static Sitting, Dynamic Sitting, Static Standing, Dynamic Standing Static Sitting Balance: Good Patient able to maintain balance without handhold support, limited postural sway Dynamic Sitting Balance: Good Patient accepts moderate challenge, able to maintain balance while picking up object off floor Static Standing Balance: Fair Patient able to maintain balance with handhold support, may require occasional minimal assistance Dynamic Standing Balance: Fair Patient accepts minimal challenge, able to maintain balance while turning head/trunk -HLM: 7: Walk 25 feet or more Learning/Educational Needs: Discharge Plan, Equipment, Family Education/Traini (more content not included)... Normal [facility] TYPE + SCREENon 05-07-2023 ABO A Normal [facility] Comment on above: Order Comment: Speci men Type: BLOOD SPECIMENOrdering Facility: [facility] Address: [address] [place] [address] Performed By: #### T SCR ####CC MAIN BLOOD BANKCLIA [id number] [address] HISTORICAL AB SCR STATUS Negative Normal [facility] Comment on above: Order Comment: Speci men Type: BLOOD SPECIMENOrdering Facility: [facility] Address: [address] [place] [address] Performed By: #### T SCR ####CC MAIN BLOOD BANKCLIA [id number] [address] Rh Nom (Bld) Positive Normal [facility] Comment on above: Order Comment: Speci men Type: BLOOD SPECIMENOrdering Facility: [facility] Address: [address] [place] [address] Performed By: #### T SCR ####CC MAIN BLOOD BANKIA [id number] [address] TYPE AND SCREEN EXPIRATION 05/10/2023 23:59 Normal [facility] Comment on above: Order Comment: Speci men Type: BLOOD SPECIMENOrdering Facility: [facility] Address: [address] [place] [address] Performed By: #### T SCR ####CC MAIN BLOOD BANKCLIA [id number] [address] CNPLianna 05-06-2023 KEYONNAN Telephone (ORTHME) MISRONNIE ([id number]) 1950 M Date Time Provider Department 05/06/23 NICOLE MEEKS During your visit today, we recorded the following information about you: Nicole Meeks RN 05/06/2023 3:29 PM Signed Spoke with patient and informed them of arrival time of 5:00am for surgery tomorrow with Dr. Bishop. Requested patient to report to [facility] at that time. Reminded patient to not eat or drink anything after midnight and if they are supposed to take a medication in the morning to do so with a sip of water. Patient states an understanding. Allergies As of Date: 05/06/2023 (No Known Allergies) Date Reviewed: 04/29/2023 Reviewed by: Ashleigh Serra MD - Fully Assessed Reason for Visit: Patient Update [1234] Cmt: Surgery Arrival Time Prescriptions as of 05/06/2023 - mupirocin (BACTROBAN) 2 % ointment Place a dab on a q-tip and wipe inside each nostril twice daily for five days and then morning of your surgery. - atorvastatin (LIPITOR) 40 mg tablet Take 40 mg by mouth. - lisinopril (ZESTRIL) 40 mg tablet Take 40 mg by mouth. - Vardenafil HCl (LEVITRA) 20 mg ORAL tablet Take 20 mg by mouth as needed. 30-60 minutes before sexual intercourse. - ATENOLOL ORAL Take 1 tablet by mouth once daily. Unknown Dosage. - AMLODIPINE BESYLATE/BENAZEPRIL (LOTREL ORAL) Take 1 tablet by mouth once daily. Unknown Dosage. - ROSUVASTATIN CALCIUM (CRESTOR ORAL) Take 1 tablet by mouth once daily. Unknown Dosage. - FAMOTIDINE (PEPCID ORAL) Take 1 tablet by mouth once daily. Unknown Dosage. - multivitamin ORAL tablet Take 1 tablet by mouth once daily. - Glucosamine Sulfate 500 mg tab Take 1 tablet by mouth once daily. Facility-Administered Medications as of 05/06/2023 - perflutren lipid microspheres 1.3 mL in NaCl (PF) 0.9% 10 mL injection (DEFINITY) - sodium chloride 0.9 % (flush) 10 mL (BD POSIFLUSH) Meds Comments as of 11/22/2011: The patient is taking Toprol but unsure of the dose. Audra Carl Ma Problem List As Of Date 05/06/2023 Noted Resolved Malignant neoplasm of prostate [C61] 08/20/2011 Hypertension [I10] 11/13/2011 Hyperlipidemia [E78.5] 11/13/2011 GERD (gastroesophageal reflux disease) [K21.9] 11/13/2011 Arthritis [M19.90] 11/13/2011 Encounter Status:Closed by NICOLE MEEKS RN on 05/06/23 Normal [facility] ECHOon 04-30-2023 Echocardiography Echocardiography Report: Transthoracic Echo [facility] J35 Date of service: 04/30/2023 11:14:08 AM BREAKER Ordering physician: VALERIA FARMER Indication: Pre Op Knee Surgery Technologist: Venus Molina Interpreting physician: Tomy Means MD PATIENT: Name: MR. RONNIE ABEBE : 1950 Age: 73 years Gender: M History of hypertension and dyslipidemia. Primary rhythm: sinus. Secondary rhythm: PVC. Height: 185.40 cm BSA: 2.25 m Weight: 97.98 kg BMI: 28.5 kg/m Heart rate 63 bpm Blood pressure 126/75 mmHg Color Doppler was utilized to interrogate the cardiac valves assessed and spectral Doppler was utilized to determine the flow velocities and pressure gradients reported in this exam. MEASUREMENTS: Value Indexed Normal Max aortic dimension 3.9 cm Ao < 3.8 Left atrial volume 85 ml (biplane A-L) 38 ml/m Telly <= 34 LV ID (diastole) 5.1 cm (2D) 2.26 cm/m LV ID (systole) 3.6 cm (2D) 1.62 cm/m IVS, leaflet tips 1.4 cm (2D) Posterior wall thickness 1.2 cm (2D) Left ventricular mass 272 g (2D) 121 g/m LV stroke volume 91 ml (2D biplane) LV end diastolic volume 151 ml (2D biplane) 67.3 ml/m 34<=EDVi<75 LV end systolic volume 60 ml (2D biplane) 26.7 ml/m Ejection Fraction 60 % (2D biplane) EF > 52 FINDINGS: LEFT VENTRICLE The left ventricle is normal in size. There is mild left ventricular hypertrophy. Left ventricular systolic function is normal. Indeterminate left ventricular diastolic dysfunction. Mitral annular lateral E/e': 6.8. Mitral annular septal E/e': 8.3. Wall Motion: All scored segments are normal. RIGHT VENTRICLE The right ventricle is normal in size. Right ventricular systolic function is normal. RV systolic tissue Doppler velocity is 20.0 cm/s. Tricuspid annular displacement is 2.6 cm. Estimated right ventricular systolic pressure is 42 mmHg consistent with mild pulmonary hypertension. Estimated right atrial pressure is 3 mmHg based on IVC assessment. LEFT ATRIUM The left atrial cavity is mildly dilated. Pulmonary Veins: The pulmonary venous pattern showed blunted systolic flow. RIGHT ATRIUM The right atrial cavity is dilated. Inferior Vena Cava: The inferior vena cava appears normal measuring 1.8 cm. The vessel decreases greater than 50 percent with inspiration. MITRAL VALVE There is mild (1+ - 2+) mitral valve regurgitation. There is mild thickening. The pressure half time is 63 msec. The peak mitral E/A ratio is 1.15. The average mitral E/e' ratio is 7.6. The mitral flow deceleration time is 219 msec. TRICUSPID VALVE There is moderate (2+) tricuspid valve regurgitation. There is no thickening. DARCIE(PA) is 29 mm . AORTIC VALVE There is trace (trace - 1+) aortic valve regurgitation. Tricuspid aortic valve. There is mild thickening. PULMONIC VALVE The pulmonic valve cusps are structurally normal. There is trace pulmonic valve regurgitation. AORTA The visualized aorta is borderline dilated. Measurements - Sinus: 3.5 cm. Mid ascending aorta 3.9 cm. PULMONARY ARTERIES The pulmonary arteries are normal. INTERATRIAL SEPTUM There is no evidence of intracardiac shunting as detected by Doppler. INTERVENTRICULAR SEPTUM There is no flow through the interventricular septum as detected by Doppler. PERICARDIUM There is no pericardial effusion. There is an epicardial fat pad. CONCLUSIONS: - Exam indication: Pre Op Knee Surgery - The left ventricle is normal in size. There is mild left ventricular hypertrophy. Left ventricular systolic function is normal. EF = 60 5% (2D biplane) - The right ventricle is normal in size. Right ventricular systolic function is normal. - The left atrial cavity is mildly dilated. - The right atrial cavity is dilated. - The visualized aorta is borderline dilated with a maximal dimension of 3.9 cm. - There is moderate (2+) tricuspid valve regurgitation. - The patient has not had a prior echocardiographic exam for comparison. * * * Final * * * [facility] [employer] Image : [id number] Normal [facility] Albumin SerPl-mCncon 023 Albumin [Mass/Vol] 4.2 g/dL Normal 3.9-4.9 [facility] Comment on above: Order Comment: Speci men Type: BLOOD SPECIMENOrdering Facility: [facility] Address: [address] [place] [address] Performed By: #### 2 4323-8, 1751-7, 16843-6, 2276-4 ####[facility] LABCLIA [id number] [place] [address] [place] CBC W Auto Differential pane l (Bld)on 04-29-2023 Basophils (Bld) [#/Vol] 0.05 10*3/uL Normal <0.11 [facility] Comment on above: Order Comment: Winstoni kristine Type: BLOOD SPECIMENOrdering Facility: [facility] Address: [address] [place] [address] Performed By: #### 5 7021-8, 24580-4 ####[facility] LABCLIA [id number] [place] [address] [place] Basophils/100 WBC (Bld) 0.5 % Normal [facility] Comment on above: Order Comment: Celina carmona Type: BLOOD SPECIMENOrdering Facility: [facility] Address: [address] [place] [address] Performed By: #### 5 7021-8, 96225-2 ####[facility] LABCLIA [id number] [place] [address] [place] Differential cell count method Nom (Bld) Auto Normal [facility] Comment on above: Order Comment: Speci men Type: BLOOD SPECIMENOrdering Facility: [facility] Address: [address] [place] [address] Performed By: #### 5 7021-8, 98894-4 ####[facility] LABCLIA [id number] [place] [address] [place] Eosinophils (Bld) [#/Vol] 0.17 10*3/uL Normal <0.46 [facility] Comment on above: Order Comment: Speci men Type: BLOOD SPECIMENOrdering Facility: [facility] Address: [address] [place] [address] Performed By: #### 5 7021-8, 79632-9 ####[facility] LABIA [id number] [place] [address] [place] Eosinophils/100 WBC (Bld) 1.8 % Normal [facility] Comment on above: Order Comment: Speci men Type: BLOOD SPECIMENOrdering Facility: [facility] Address: [address] [place] [address] Performed By: #### 5 7021-8, 31286-9 ####[facility] LABCLIA [id number] [place] [address] [place] Erythrocyte distribution width (RBC) [Ratio] 12.8 % Normal 11.5-15.0 [facility] Comment on above: Order Comment: Speci men Type: BLOOD SPECIMENOrdering Facility: [facility] Address: [address] [place], [place] [address] Performed By: #### 5 7021-8, 58984-2 ####[facility] LABCLIA [id number] [place] [address] [place] Hematocrit (Bld) [Volume fraction] 44.8 % Normal 39.0-51.0 [facility] Comment on above: Order Comment: Speci men Type: BLOOD SPECIMENOrdering Facility: [facility] Address: [address] [place] [address] Performed By: #### 5 7021-8, 39845-5 ####[facility] LABCLIA [id number] [place] [address] [place] Hemoglobin (Bld) [Mass/Vol] 14.1 g/dL Normal 13.0-17.0 [facility] Comment on above: Order Comment: Speci men Type: BLOOD SPECIMENOrdering Facility: [facility] Address: [address] [place], [place] [address] Performed By: #### 5 7021-8, 55750-8 ####[facility] LABCLIA [id number] [place] [address] [place] Immature granulocytes (Bld) [#/Vol] 0.05 10*3/uL Normal <0.10 [facility] Comment on above: Order Comment: Speci men Type: BLOOD SPECIMENOrdering Facility: [facility] Address: [address] [place] [address] Performed By: #### 5 7021-8, 85052-8 ####[facility] LABCLIA [id number] [place] [address] [place] Immature granulocytes/100 WBC (Bld) 0.5 % Normal [facility] Comment on above: Order Comment: Speci men Type: BLOOD SPECIMENOrdering Facility: [facility] Address: [address] [place] [id number] Performed By: #### 5 7021-8, 82388-7 ####[facility] LABCLIA [id number] [place] [address] [place] Lymphocytes (Bld) [#/Vol] 2.21 10*3/uL Normal 1.00-4.00 [facility] Comment on above: Order Comment: Speci men Type: BLOOD SPECIMENOrdering Facility: [facility] Address: [address] [place] [address] Performed By: #### 5 7021-8, 38717-3 ####[facility] LABIA [id number] [address] [place] Lymphocytes/100 WBC (Bld) 23.9 % Normal [facility] Comment on above: Order Comment: Speci men Type: BLOOD SPECIMENOrdering Facility: [facility] Address: [address] [place] [address] Performed By: #### 5 7021-8, 30906-8 ####[facility] LABIA [id number] [address] [place] MCH (RBC) [Entitic mass] 32.3 pg Normal 26.0-34.0 [facility] Comment on above: Order Comment: Speci men Type: BLOOD SPECIMENOrdering Facility: [facility] Address: [address] [place] [address] Performed By: #### 5 7021-8, 08369-0 ####[facility] LABIA [id number] [address] [place] MCHC (RBC) [Mass/Vol] 31.5 g/dL Normal 30.5-36.0 [facility] Comment on above: Order Comment: Speci men Type: BLOOD SPECIMENOrdering Facility: [facility] Address: [address] [place], [place] [address] Performed By: #### 5 7021-8, 51289-8 ####[facility] [id number] [address] [place] MCV (RBC) [Entitic vol] 102.5 fL High 80.0-100.0 [facility] Comment on above: Order Comment: Speci men Type: BLOOD SPECIMENOrdering Facility: [facility] Address: [address] [place] [address] Performed By: #### 5 7021-8, 67850-1 ####[facility] LABCLIA [id number] [place] [address] [place] Monocytes (Bld) [#/Vol] 0.95 10*3/uL High <0.87 [facility] Comment on above: Order Comment: Speci men Type: BLOOD SPECIMENOrdering Facility: [facility] Address: [address] [place] [address] Performed By: #### 5 7021-8, 93119-9 ####[facility] LABCLIA [id number] [place] [address] [place] Monocytes/100 WBC (Bld) 10.3 % Normal [facility] Comment on above: Order Comment: Speci men Type: BLOOD SPECIMENOrdering Facility: [facility] Address: [address] Performed By: #### 5 7021-8, 41312-0 ####[facility] LABCLIA [id number] [place] [address] [place] Neutrophils (Bld) [#/Vol] 5.80 10*3/uL Normal 1.45-7.50 [facility] Comment on above: Order Comment: Speci men Type: BLOOD SPECIMENOrdering Facility: [facility] Address: [address] [place] [address] Performed By: #### 5 7021-8, 18562-7 ####[facility] LABCLIA [id number] [place] [address] [place] Neutrophils/100 WBC (Bld) 63.0 % Normal [facility] Comment on above: Order Comment: Speci men Type: BLOOD SPECIMENOrdering Facility: [facility] Address: [address] Performed By: #### 5 7021-8, 36811-4 ####[facility] LABCLIA [id number] [place] [address] [place] Nucleated RBC (Bld) [#/Vol] 10*3/uL Normal <0.01 [facility] Comment on above: Order Comment: Speci men Type: BLOOD SPECIMENOrdering Facility: [facility] Address: [address] [place] [address] Performed By: #### 5 7021-8, 18761-3 ####[facility] LABCLIA [id number] [place] [address] [place] Nucleated RBC/100 WBC (Bld) [Ratio] 0.0 /100 WBC Normal [facility] Comment on above: Order Comment: Speci men Type: BLOOD SPECIMENOrdering Facility: [facility] Address: [address] [place], [place] [address] Performed By: #### 5 7021-8, 20203-4 ####[facility] LABIA [id number] [place] [address] [place] Platelet mean volume (Bld) [Entitic vol] 11.1 fL Normal 9.0-12.7 [facility] Comment on above: Order Comment: Speci men Type: BLOOD SPECIMENOrdering Facility: [facility] Address: [address] [place] [address] Performed By: #### 5 7021-8, 84358-1 ####[facility] LABIA [id number] [place] [address] [place] Platelets (Bld) [#/Vol] 272 10*3/uL Normal 150-400 [facility] Comment on above: Order Comment: Speci men Type: BLOOD SPECIMENOrdering Facility: [facility] Address: [address] [place], [place] [address] Performed By: #### 5 7021-8, 66680-3 ####[facility] LABIA [id number] [place] [address] [place] RBC (Bld) [#/Vol] 4.37 10*6/uL Normal 4.20-6.00 [facility] Comment on above: Order Comment: Speci men Type: BLOOD SPECIMENOrdering Facility: [facility] Address: [address] [place] [address] Performed By: #### 5 7021-8, 98241-9 ####[facility] LABCLIA [id number] [address] [facility] WBC (Bld) [#/Vol] 9.23 10*3/uL Normal 3.70-11.00 [facility] Comment on above: Order Comment: Speci men Type: BLOOD SPECIMENOrdering Facility: [facility] Address: [address] [place] [address] Performed By: #### 5 7021-8, 59377-7 ####[facility] LABCLIA [id number] [address] [facility] CNOVon 04-29-2023 CNOV Office Visit (ORTHMN ) RONNIE ABEBE ([id number]) 1950 Date Time Provider Department 04/29/23 10:00 AM SHAJI BISHOPMN During your visit today, we recorded the following information about you: Shaji Bishop MD 04/29/2023 11:35 AM Signed CONSULT ORTHOPAEDIC: KNEE PRIMARY CARE PHYSICIAN: Merline Fuller MD REFERRING PROVIDER: SELF ASSESSMENT AND PLAN Impression: Left Knee Severe Degenerative Osteoarthritis, Primary and Right Knee Severe Degenerative Osteoarthritis, Primary Scheduled for Robotic Left Total Knee Arthroplasty 05/07/23 Consents completed Patient has been pre-oped today and given the pre-op wipes and information Ronnie Abebe has radiograph and physical exam evidence of degenerative joint disease and wishes to pursue surgery. This patient appears to have sufficient symptoms to warrant surgical intervention and is an appropriate candidate for left Primary Total Knee Arthroplasty as evidenced by six months of unsuccessful non-operative treatment as outlined in the HPI below and progressive symptoms. Progressive Symptoms Include: Pain worsened by weight bearing Pain limiting ability to stay fit and healthy. This patient has the following risk factors: N/A We had a lengthy discussion regarding the risk and benefit of surgery, the alternatives, limitations and personnel involved. These included but were not limited to infection, persistent pain, instability, nerve injury, blood clots, and medical complications. We also discussed the pre-operative course, surgery itself and rehabilitation. Garima-operative blood management and transfusion issues were discussed, and options clearly outlined. The patient has consented to the use of the banked allogenic blood if medically necessary. The patient has elected to schedule surgery at this time or intends to call the office with a surgical date. Shared decision making occurred while obtaining informed consent. The patient will be scheduled for a pre-operative education class at which time they will have their nasal swab completed and will be given CHG cloths along with the verbal and written instructions for their use. Patient has been instructed and has been scheduled or will call to schedule attendence in one of the total joint perioperative classes offered prior to proceeding with TKA. The patient has been ordered: Anemia Screen Albumin Level CT Ronnie Abebe meets the following criteria for CT: Custom cutting guides for presence of osseous deformity CONSULTS: IMPACT/PACE Consult for preoperative clearance. ACTIVE PROBLEM LIST Malignant Neoplasm of Prostate (Hcc) Hypertension Hyperlipidemia Gerd (Gastroesophageal Reflux Disease) Arthritis SUBJECTIVE CHIEF COMPLAINT: Knee Pain HPI: Ronnie Abebe is a 73 year old patient here for evaluation and management of bilateral knee pain. Ronnie Abebe has had progressive problems with the knee(s) multiple times a day over the past 3 year(s) interfering with activities which include participating in family activities, enjoying hobbies, walking, and climbing stairs. The problem began limiting activities 1-6 months ago. Currently the pain in the joint is rated at 4 out of 10 with minimal activity. The pain is intermittent and is located along the inside aspect. The pain is described as aching and stabbing. Relieving factors include over the counter medication. There is no specific incident that brought about this pain. Ronnie Abebe has no additional complaints. FUNCTIONAL STATUS: Totally dependent Total Joint Arthroplasty: Risk Calculator Ronnie Abebe has a 3.85% chance of NOT returning home at discharge for a Primary total Knee replacement. Ronnie's estimated Length of Stay is 1 day (Outpatient candidate). Ronnie's 30 day chance of readmission is 3.06%. Readmission Probability 3.06 % (within 30 days following surgery) Estimated LOS 1 day Discharge Disposition Probability D/C to Home 96.15 % D/C to SNF 3.85 % These calculations are based on the following factors: - 73 years of age - sex is male - BMI of 27.97 kg/m2 - NarxCare score of 90 - 0 hospitalizations in the last 12 months - no history of heart disease - no history of diabetes - no history of COPD - no history of anemia - preoperative ambulation: independent community distances - 4 step(s) to enter home - bed location is on the first floor - bath location is on the first floor - caregiver is consistent - home is not more than 150 miles away - PROMIS-10 Mental Health T score not available - Marital status: PREVIOUS TREATMENTS: Medical Treatments: OTC NSAIDS for 3 Months or Greater ( ), Steroid Injections Left Knee, Steroid Injections Right Knee REVIEW OF SYSTEMS: PAIN ASSESSMENT: See HPI. MUSCULOSKELETAL: See HPI. Risk Factors for Total Joint Ar (more content not included)... Normal [facility] CT KNEE WO IVCON LEFTon - [facility] CT KNEE WO IVCON LTon 2022 CT KNEE WO IVCON LT * * *Final Report* * * DATE OF EXAM: Apr 29 2023 2:25PM [facility] [place]83 - CT KNEE WO IVCON LT / PROCEDURE REASON: multiple diagnoses * * * * Physician Interpretation * * * * CT KNEE WO IVCON LT 04/29/2023 2:25 PM HISTORY: Primary osteoarthritis of left knee Primary osteoarthritis of right knee Anemia, unspecified type TECHNIQUE: Non-contrast axial CT imaging of the hips, knees, and ankles was performed. Imaging was performed according to the Andrews protocol. . Coronal and sagittal reconstructions were performed. Contrast: None. CT Radiation dose: Integrated Dose-length product (DLP) for this visit = 976 mGy*cm. CT Dose Reduction Employed: Automated exposure control (AEC) COMPARISON: 02/02/2020 knee radiographs. RESULT: The hip joint spaces are maintained. No acute osseous abnormality in the hip. There is no disproportionate muscle fatty atrophy around the hip. Diverticulosis is noted. There is tricompartment knee osteoarthritis with a joint effusion. No acute osseous abnormality is identified. There is no disproportionate muscle fatty atrophy around the knee. No acute osseous abnormality is identified in either ankle. There is bilateral first MTP joint osteoarthritis. IMPRESSION: Limited CT images for the purposes of presurgical planning. There is no unexpected acute or aggressive abnormality. Manager Completions: PSCB Transcribe Date/Time: Apr 29 2023 2:31P Dictated by : OSMAR ESPINOZA MD This examination was interpreted and the report reviewed and electronically signed by: OSMAR ESPINOZA MD on Apr 29 2023 2:34PM EST [id number] Normal [facility] Comprehensive metabolic 2000 panelon 04-29-2023 Albumin [Mass/Vol] 4.3 g/dL Normal 3.9-4.9 [facility] Comment on above: Order Comment: Speci men Type: BLOOD SPECIMENOrdering Facility: [facility] Address: [address] [place], [place] [id number] Performed By: #### 2 4323-8, 1751-7, 07985-5, 2276-4 ####[facility] [id number] [place] [address] [place] ALP [Catalytic activity/Vol] 73 U/L Normal 38-113 [facility] Comment on above: Order Comment: Speci men Type: BLOOD SPECIMENOrdering Facility: [facility] Address: [address] [place], [place] [address] Performed By: #### 2 4323-8, 1751-7, 96000-2, 2276-4 ####[facility] LABIA [id number] [address] [place] ALT [Catalytic activity/Vol] 23 U/L Normal 10-54 [facility] Comment on above: Order Comment: Speci men Type: BLOOD SPECIMENOrdering Facility: [facility] Address: [address] [place] [address] Performed By: #### 2 4323-8, 1751-7, 44804-8, 2276-4 ####[facility] LABCLIA [id number] [place] [address] [place] Anion gap [Moles/Vol] 16 mmol/L Normal 9-18 [facility] Comment on above: Order Comment: Speci men Type: BLOOD SPECIMENOrdering Facility: [facility] Address: [address] [place] [address] Performed By: #### 2 4323-8, 1751-7, 37143-6, 6-4 ####[facility] LABCLIA [id number] [place] [address] [place] AST [Catalytic activity/Vol] 24 U/L Normal 14-40 [facility] Comment on above: Order Comment: Speci men Type: BLOOD SPECIMENOrdering Facility: [facility] Address: [address] [place] [address] Performed By: #### 2 4323-8, 1751-7, 20055-0, 2275-4 ####[facility] LABCLIA [id number] [place] [address] [place] Bilirubin [Mass/Vol] 0.6 mg/dL Normal 0.2-1.3 [facility] Comment on above: Order Comment: Speci men Type: BLOOD SPECIMENOrdering Facility: [facility] Address: [address] [place], [place] [address] Performed By: #### 2 4323-8, 1751-7, 60720-1, 6-4 ####[facility] LABCLIA [id number] [place] [address] [place] Calcium [Mass/Vol] 9.3 mg/dL Normal 8.5-10.2 [facility] Comment on above: Order Comment: Speci men Type: BLOOD SPECIMENOrdering Facility: [facility] Address: [address] [place], [place] [address] Performed By: #### 2 4323-8, 1751-7, 32390-4, 2276-4 ####[facility] LABCLIA [id number] [place] [address] [place] Chloride [Moles/Vol] 104 mmol/L Normal 97-105 [facility] Comment on above: Order Comment: Speci men Type: BLOOD SPECIMENOrdering Facility: [facility] Address: [address] [place] [address] Performed By: #### 2 4323-8, 1751-7, 23396-8, 2276-4 ####[facility] LABCLIA [id number] [place] [address] [place] CO2 [Moles/Vol] 17 mmol/L Low 22-30 [facility] Comment on above: Order Comment: Speci men Type: BLOOD SPECIMENOrdering Facility: [facility] Address: [address] [place] [address] Performed By: #### 2 4323-8, 1751-7, 95010-1, 6-4 ####[facility] LABCLIA [id number] [place] [address] [place] Creatinine [Mass/Vol] 1.05 mg/dL Normal 0.73-1.22 [facility] Comment on above: Order Comment: Speci men Type: BLOOD SPECIMENOrdering Facility: [facility] Address: [address] [place], [place] [address] Performed By: #### 2 4323-8, 175-7, 89836-4, 6-4 ####[facility] LABCLIA [id number] [place] [address] [place] ESTIMATED GLOMERULAR FILTRATION RATE 75 mL/min/1.73m??? Normal >=60 [facility] Comment on above: Order Comment: Speci men Type: BLOOD SPECIMENOrdering Facility: [facility] Address: [address] [place] [address] Result Comment: Sarah mated Glomerular Filtration Rate (eGFR) is calculated using the 2020 CKD-EPI creatinine equation. This equation utilizes serum creatinine, sex, and age as parameters. The creatinine assay has traceable calibration to isotope dilution-mass spectrometry. Refer to KDIGO guidelines for clinical interpretation. In patients with unstable renal function, e.g. those with acute kidney injury, the eGFR may not accurately reflect actual GFR. Performed By: #### 2 4323-8, 175-7, 42605-1, 6-4 ####[facility] LABIA [id number] [place] [id number] [place] Glucose [Mass/Vol] 84 mg/dL Normal 74-99 [facility] Comment on above: Order Comment: Celina carmona Type: BLOOD SPECIMENOrdering Facility: [facility] Address: [address] [place], [place] [address] Result Comment: The [place] Diabetes Association (ADA) provides guidance for cutoff values for fasting glucose and random glucose. The ADA defines fasting as no caloric intake for at least 8 hours. Fasting plasma glucose results between 100 to 125 mg/dL indicate increased risk for diabetes (prediabetes). Fasting plasma glucose results greater than or equal to 126 mg/dL meet the criteria for diagnosis of diabetes. In the absence of unequivocal hyperglycemia, results should be confirmed by repeat testing. In a patient with classic symptoms of hyperglycemia or hyperglycemic crisis, random plasma glucose results greater than or equal to 200 mg/dL meet the criteria for diagnosis of diabetes. Reference: Standards of Medical Care in Diabetes 2016, [place] Diabetes Association. Diabetes Care. 2016.39(Suppl 1). Performed By: #### 2 4323-8, 1751-7, 09352-1, 6-4 ####[facility] LABCLIA [id number] [place] [id number] [place] Potassium [Moles/Vol] 5.2 mmol/L High 3.7-5.1 [facility] Comment on above: Order Comment: Celina carmona Type: BLOOD SPECIMENOrdering Facility: [facility] Address: [address] [place], [place] [phone] Performed By: #### 2 4323-8, 1751-7, 57366-6, 2276-4 ####[facility] LABIA [id number] [place] [address] [place] Protein [Mass/Vol] 7.3 g/dL Normal 6.3-8.0 [facility] Comment on above: Order Comment: Speci men Type: BLOOD SPECIMENOrdering Facility: [facility] Address: [address] [place] [address] Performed By: #### 2 4323-8, 175-7, 85791-5, 6-4 ####[facility] [id number] [place] [address] [place] Sodium [Moles/Vol] 137 mmol/L Normal 136-144 [facility] Comment on above: Order Comment: Speci men Type: BLOOD SPECIMENOrdering Facility: [facility] Address: [address] [place] [address] Performed By: #### 2 4323-8, 175-7, 20749-4, 6-4 ####[facility] LABIA [id number] [place] [address] [place] Urea nitrogen [Mass/Vol] 23 mg/dL Normal 9-24 [facility] Comment on above: Order Comment: Speci men Type: BLOOD SPECIMENOrdering Facility: [facility] Address: [address] [place] [address] Performed By: #### 2 4323-8, 175-7, 85649-1, 6-4 ####[facility] LABIA [id number] [place] [address] [place] ECG COMPLETEon 04-29-2023 ECG COMPLETE Ventricular Rate : 5 6 BPM Atrial Rate : 56 BPM P-R Interval : 164 ms QRS Duration : 82 ms Q-T Interval : 468 ms QTC Calculation(Bazett) : 451 ms Calculated P [place] : 37 degrees Calculated R [place] : -8 degrees Calculated T [place] : 9 degrees SINUS BRADYCARDIA WITH FREQUENT PREMATURE VENTRICULAR COMPLEXES IN A PATTERN OF BIGEMINY * ABNORMAL ECG Confirmed by FAVIAN MALLORY MD ([id number]) on 05/01/2023 10:45:18 AM NAME : RONNIE ABEBE PID : [id number] : 1950 Gender : Male Race : ORD : [id number] Procedure Date : Apr 29 2023 11:56:39 Edit Date : May 01 2023 10:45:24 Diagnosis: SINUS BRADYCARDIA WITH FREQUENT PREMATURE VENTRICULAR COMPLEXES IN A PATTERN OF BIGEMINY * ABNORMAL ECG Confirmed by FAVIAN MALLORY MD ([id number]) on 05/01/2023 10:45:18 AM Test Reason : Location : 119 : A17 A17 Overread By : FAVIAN MALLORY MD Edited By : FAVIAN MALLORY MD Referred By : LUMA GARCIA Acquired by : ANTONIO WAKEFIELD Normal [facility] Ferritin SerPl-mCncon 2022 Ferritin [Mass/Vol] 346.0 ng/mL Normal 30.3-565.7 [facility] Comment on above: Order Comment: Speci men Type: BLOOD SPECIMENOrdering Facility: [facility] Address: [address] [place] [address] Performed By: #### 2 4323-8, 1751-7, 28076-2, 2276-4 ####[facility] LABCLIA [id number] [facility] [id number] [address] [place] Folate SerPl-mCncon 04-29-20 23 Folate [Mass/Vol] ng/mL Normal >4.7 [facility] Comment on above: Order Comment: Speci men Type: BLOOD SPECIMENOrdering Facility: [facility] Address: [address] [place] [address] Result Comment: A re sult of > 20 ng/mL is not necessarily indicative of a pathologic or treatable condition: it reflects a limitation of the test methodology. Assay reference range: 4.8 to 24.2 ng/mL. Suitable for detection of folate deficiency. Reference: Folate III (Folate III) [package insert V 1.0 Mauritanian]. [facility], [place], [place]: August 2015. Performed By: #### 2 132-9, 2284-8 ####[facility] LABCLIA [id number] [place] [address] [place] HISTORY PHYSICALon HISTORY PHYSICAL HNO ID: [id number] Author: Ashleigh Serra MD Service: ? Author Type: Resident Type: HANDP Filed: 04/30/2023 3:37 PM Note Text: HISTORY AND PHYSICAL EXAMINATION SERVICE DATE: 04/29/2023 SERVICE TIME: 1:47 PM PRIMARY CARE PHYSICIAN: Merline Fuller MD REASON FOR VISIT: Ronnie Abebe is a 73 year old male who is scheduled for ROBOTIC ASSISTED TOTAL KNEE ARTHROPLASTY at the request of Dr. Luma Garcia for consultation. My final recommendation will be communicated back to the requesting physician by way of shared medical record or letter. The patient has the following: ACTIVE PROBLEM LIST Malignant Neoplasm of Prostate (Hcc) Hypertension Hyperlipidemia Gerd (Gastroesophageal Reflux Disease) Arthritis Subjective CHIEF COMPLAINT: arthritis of the left knee HPI: Ronnie Abebe is a 73 year old male with PMH HTN, GERD, HLD, prostate cancer s/p robotic prostatectomy 2011 who presents to [facility] today for preop exam. Patient is scheduled for the above procedure on 05/07/23 PAST MEDICAL HISTORY Diagnosis Date HTN (hypertension) Hyperlipidemia Malignant neoplasm of prostate (HCC) PAST SURGICAL HISTORY Procedure Laterality Date NONE OTHER SURGICAL HISTORY (PLEASE SPECIFY) HX 2011 robotic prostatectomy FAMILY HISTORY Problem Relation Age of Onset other (Lung Cancer [Other]) Father other (Mesothelioma [Other]) Mother SOCIAL HISTORY: Social History Tobacco Use Smoking status: Never Passive exposure: Never Smokeless tobacco: Never Substance Use Topics Alcohol use: Yes Comment: 1 drink of vodka daily per pt 04/29/2023 Drug use: No MEDICATIONS: Prior to Admission medications as of 04/29/23 1309 Medication Sig Last Dose Taking atorvastatin (LIPITOR) 40 mg tablet Take 40 mg by mouth. Taking Yes lisinopril (ZESTRIL) 40 mg tablet Take 40 mg by mouth. Taking Yes ATENOLOL ORAL Take 1 tablet by mouth once daily. Unknown Dosage. Taking Yes AMLODIPINE BESYLATE/BENAZEPRIL (LOTREL ORAL) Take 1 tablet by mouth once daily. Unknown Dosage. Taking Yes FAMOTIDINE (PEPCID ORAL) Take 1 tablet by mouth once daily. Unknown Dosage. Taking Yes multivitamin ORAL tablet Take 1 tablet by mouth once daily. Taking Yes Vardenafil HCl (LEVITRA) 20 mg ORAL tablet Take 20 mg by mouth as needed. 30-60 minutes before sexual intercourse. Patient not taking: Reported on 04/29/2023 Not Taking ROSUVASTATIN CALCIUM (CRESTOR ORAL) Take 1 tablet by mouth once daily. Unknown Dosage. Patient not taking: Reported on 04/29/2023 Not Taking Glucosamine Sulfate 500 mg tab Take 1 tablet by mouth once daily. Patient not taking: Reported on 04/29/2023 Not Taking Medication Comments documented by Audra Carl on 11/22/2011 at 0950. The patient is taking Toprol but unsure of the dose. Audra Carl Ma CURRENT ALLERGIES: ALLERGIES No Known Allergies COVID VACCINATION STATUS: Not vaccinated REVIEW OF SYSTEMS: PAIN ASSESSMENT: Pain Pain Level: 5 Pain Location: Knee-Left Description: Burning Duration Units: Months Frequency: Continuous Intervention/Comfort measure: Reposition General: No weight loss, malaise or fevers. Neuro: No history of TIA's, stroke, CRIMINALIST TECHNICIAN tumor, impaired sensorium, hemiplegia, paraplegia or quadraplegia. No neurological symptoms or problems. Respiratory: No history of current cough or dyspnea, or pneumonia in the past 6 weeks. No history of respiratory/pulmonary symptoms or problems. Cardiovascular: +HTN no hx of angina, PA, stent placement GI: No history of GI symptoms or problems. No history of esophageal varices, recent ascites, or ETOH greater than 2 drinks per day. : No history of dysuria, frequency or incontinence,, stones or chronic kidney disease Endocrine: No history of diabetes. Has not taken steroids within the past 30 days. No history of endocrinological symptoms or problems. Hematology: No history of bleeding or clotting disorder. Pt is not taking anti-coagulation or platelet medications. No history of hematological symptoms or problems. Oncology: +hx of prostate cancer s/p prostatectomy no MANAGER BUSINESS INTELLIGENCE Psych: No history of psychiatric symptoms or problems. Musculoskeletal: +L knee arthritis Skin: Negative for lesions, rash and itching. Objective PHYSICAL EXAM: VITALS: BP 126/75 Pulse 61 Temp (Src) 97.8 (Oral) Ht 6' 1 (1.85m) Wt 216 lb (98.0kg) SpO2 99% BMI 28.50 kg/(m2). General: Alert and oriented, No acute distress, Healthy appearance Skin: Normal color, no rash, no lesions. HEENT: EOM, pupils equal, round and reactive. Cardiovascular: Normal S1 AND S2, no rubs, murmurs or gallops. No JVD. Pulse regular. Lungs: Normal breath sounds, no wheezes or crackles. Abdomen: Soft, non-tender, no rigidity. Extremities: No deformity, no edema or tenderness, no joint swelling or clubbing. Neurological: Normal cognition and motor skills. Pulses: radial pulses normal +2. Diagnostic tests reviewed for today's visit: Lab Jennifer (more content not included)... Normal [facility] Iron and Iron binding capaci ty panelon 04-29-2023 Iron [Mass/Vol] 92 ug/dL Normal 41-186 [facility] Comment on above: Order Comment: Speci men Type: BLOOD SPECIMENOrdering Facility: [facility] Address: [address] [place], [place] [id number] Performed By: #### 2 4323-8, 1751-7, 49823-6, 6-4 ####[facility] LABCLIA [id number] [place] [address] [place] Iron binding capacity [Mass/Vol] 295 ug/dL Normal 232-386 [facility] Comment on above: Order Comment: Speci men Type: BLOOD SPECIMENOrdering Facility: [facility] Address: [address] [place] [address] Performed By: #### 2 4323-8, 1751-7, 76002-4, 2275-4 ####[facility] LABCLIA [id number] [place] [id number] [place] Iron/TIBC [Molar ratio] 31.2 % Normal 15.0-57.0 [facility] Comment on above: Order Comment: Speci men Type: BLOOD SPECIMENOrdering Facility: [facility] Address: [address] [place] [address] Performed By: #### 2 4323-8, 1751-7, 94993-4, 2276-4 ####[facility] LABCLIA [id number] [place] [address] [place] Retics #on 04-29-2023 Reticulocytes (Bld) [#/Vol] 0.99626 10*3/uL Normal 0.018-0.100 [facility] Comment on above: Order Comment: Speci men Type: BLOOD SPECIMENOrdering Facility: [facility] Address: [address] [place] [address] Performed By: #### 5 7021-8, 92645-0 ####[facility] LABCLIA [id number] [place] [address] [place] [facility] Reticulocytes (Bld) [#/Vol]o n 04-29-2023 Reticulocytes/100 RBC (Bld) 2.0 % Normal 0.4-2.0 [facility] Comment on above: Order Comment: Speci men Type: BLOOD SPECIMENOrdering Facility: [facility] Address: [address] [place] [address] Performed By: #### 5 7021-8, 98999-9 ####[facility] LABCLIA [id number] [place] [address] [place] Vit B12 SerPl-mCncon 023 Cobalamin (Vitamin B12) [Mass/Vol] 409 pg/mL Normal 232-1245 [facility] Comment on above: Order Comment: Speci men Type: BLOOD SPECIMENOrdering Facility: [facility] Address: [address] [place] [address] Performed By: #### 2 132-9, 2284-8 ####[facility] LABCLIA [id number] [place] [address] [place] CBC AUTO DIFFon 02-26-2023 BASO # 0.1 103/ul Normal 0.0-0.1 [facility] Comment on above: Performed By: #### C BC #### [facility] [address] [place] [address] [address] Luci Christian Basophils/100 WBC (Bld) 0.5 % Normal 0.2-2.0 [facility] Comment on above: Performed By: #### C BC #### [facility] [address] [address] [address] Luci Christian EO # 0.3 103/ul Normal 0.0-0.7 [facility] Comment on above: Performed By: #### C BC #### [facility] [address] [place] [address] Dr. Luci Christian Eosinophils/100 WBC (Bld) 3.5 % Normal 0.9-7.0 [facility] Comment on above: Performed By: #### C BC #### [facility] [address] [place] [address] Dr. Luci Christian Erythrocyte distribution width (RBC) [Ratio] 12.6 % Normal 11.0-15.0 [facility] Comment on above: Performed By: #### C BC #### [facility] [address] [place] [address] Dr. Luci Christian Hematocrit (Bld) [Volume fraction] 46.5 % Normal 42.0-54.0 [facility] Comment on above: Performed By: #### C BC #### [facility] [address] [place] [address] Dr. Luci Christian Hemoglobin (Bld) [Mass/Vol] 14.9 g/dL Normal 14.0-18.0 [facility] Comment on above: Performed By: #### C BC #### [facility] [address] [place] [address] Dr. Luci Christian IG # 0.06 10e3/ul Critically high 0.00-0.03 [facility] Comment on above: Performed By: #### C BC #### [facility] [address] [place] [address] Dr. Luci Christian IG % 0.7 % Critically high 0.0-0.5 [facility] Comment on above: Performed By: #### C BC #### [facility] [address] [place] [address] Dr. Luci Christian LYMPH # 2.4 103/ul Normal 1.2-3.8 [facility] Comment on above: Performed By: #### C BC #### [facility] [address] [place] [address] Dr. Luci Christian Lymphocytes/100 WBC (Bld) 26.4 % Normal 20.5-60.0 [facility] Comment on above: Performed By: #### C BC #### [facility] [address] [place] [address] Dr. Luci Christian MANUAL DIFF REQ NO Normal [facility] Comment on above: Performed By: #### C BC #### [facility] [address] [place] [address] Dr. Luci Christian MCH (RBC) [Entitic mass] 32.6 pg Normal 25.9-34.0 [facility] Comment on above: Performed By: #### C BC #### [facility] [address] [place] [address] Dr. Luci Christian MCHC (RBC) [Mass/Vol] 32.0 g/dL Normal 29.9-35.2 [facility] Comment on above: Performed By: #### C BC #### [facility] [address] [place] [address] Dr. Luci Christian MCV (RBC) [Entitic vol] 101.8 fL Critically high 80.0-94.0 [facility] Comment on above: Performed By: #### C BC #### [facility] [address] [place] [address] Dr. Luci Christian MONO # 1.0 103/ul Critically high 0.3-0.8 [facility] Comment on above: Performed By: #### C BC #### [facility] [address] [place] [address] Dr. Luci Christian Monocytes/100 WBC (Bld) 10.6 % Normal 1.7-12.0 [facility] Comment on above: Performed By: #### C BC #### [facility] [address] [place] [address] Dr. Luci Christian NEUT # 5.4 103/ul Normal 1.4-6.5 [facility] Comment on above: Performed By: #### C BC #### [facility] [address] [place] [address] Dr. Luci Christian Neutrophils/100 WBC (Bld) 58.3 % Normal 43.0-75.0 [facility] Comment on above: Performed By: #### C BC #### [facility] [address] [place] [address] Dr. Luci Christian Platelet mean volume (Bld) [Entitic vol] 10.3 fL Normal 9.5-13.5 [facility] Comment on above: Performed By: #### C BC #### [facility] [address] [place] [address] Dr. Luci Christian PLT 273 103/ul Normal 150-450 [facility] Comment on above: Performed By: #### C BC #### [facility] [address] [place] [address] Dr. Luci Christian RBC 4.57 106/ul Critically low 4.70-6.10 [facility] Comment on above: Performed By: #### C BC #### [facility] [address] [place] [address] Dr. Luci Christian WBC 9.2 103/ul Normal 4.0-11.0 [facility] Comment on above: Performed By: #### C BC #### [facility] [address] [place] [address] Dr. Luci Christian FREE THYROXINE INDEX T7on FTI 2.31 Normal 1.30-4.50 [facility] Comment on above: Performed By: #### T 7, LIPID, CMP, TSH #### [facility] [address] [place] [address] Dr. Luci Christian T3U 34.0 % Normal 33.0-40.0 [facility] Comment on above: Performed By: #### T 7, LIPID, CMP, TSH #### [facility] [address] [address] [address] Luci Christian T4 [Mass/Vol] 6.80 ug/dL Normal 4.50-12.10 [facility] Comment on above: Performed By: #### T 7, LIPID, CMP, TSH #### [facility] [address] [address] [address] Luci Christian LIPID PROFILEon 02-26-2023 CHOL-HDL RATIO NORM SEE BELOW Normal [facility] Comment on above: Result Comment: 3.3 - 4.4 LOW RISK 4.4 - 7.1 AVERAGE RISK 7.1 - 11.0 MODERATE RISK >11.0 HIGH RISK Performed By: #### T 7, LIPID, CMP, TSH #### [facility] [address] [address] [address] Luci Christian Cholesterol [Mass/Vol] 165 mg/dL Normal <=200 [facility] Comment on above: Performed By: #### T 7, LIPID, CMP, TSH #### [facility] [address] [address] [address] Luci Christian Cholesterol in HDL [Mass/Vol] 56 mg/dL Normal 40-60 [facility] Comment on above: Performed By: #### T 7, LIPID, CMP, TSH #### [facility] [address] [address] [address] Luci Christian Cholesterol in LDL [Mass/Vol] 66.4 mg/dL Normal [facility] Comment on above: Performed By: #### T 7, LIPID, CMP, TSH #### [facility] [address] [address] [address] Luci Christian Cholesterol.total/Cho lesterol in HDL [Mass ratio] 2.9 {ratio} Normal [facility] Comment on above: Performed By: #### T 7, LIPID, CMP, TSH #### [facility] [address] [address] [address] Luci Christian HDL NORMAL > or = 60 mg/dl - LO W CARDIOVASCULAR RISK <40 mg/dl - HIGH CARDIOVASCULAR RISK Normal [facility] Comment on above: Performed By: #### T 7, LIPID, CMP, TSH #### [facility] [address] [address] [address] Luci Christian LDL CALC NORMAL SEE BELOW Normal [facility] Comment on above: Result Comment: <100 mg/dl OPTIMAL 100 - 129 mg/dl NEAR OR ABOVE OPTIMAL 130 - 159 mg/dl BORDERLINE HIGH 160 - 189 mg/dl HIGH >190 mg/dl VERY HIGH Performed By: #### T 7, LIPID, CMP, TSH #### [facility] [address] [address] [address] Luci Christian Triglyceride [Mass/Vol] 213 mg/dL Critically high <=150 [facility] Comment on above: Performed By: #### T 7, LIPID, CMP, TSH #### [facility] [address] [address] [address] Luci Christian VLDL CALC 42.6 mg/dL Normal [facility] Comment on above: Performed By: #### T 7, LIPID, CMP, TSH #### [facility] [address] [address] [address] Luci Christian OCC BLD IMMUNO SCREENon OCCULT BLOOD Negative Normal NEGATIVE [facility] Comment on above: Performed By: #### O BSCRN #### [facility] [address] [address] [address] Luci Christian PROF 14(COMP METB)on 023 Albumin [Mass/Vol] 3.7 g/dL Normal 3.4-5.0 [facility] Comment on above: Performed By: #### T 7, LIPID, CMP, TSH #### [facility] [address] [address] [address] Luci Christian Albumin/Globulin [Mass ratio] 0.8 {ratio} Normal [facility] Comment on above: Performed By: #### T 7, LIPID, CMP, TSH #### [facility] [address] [address] [address] Luci Christian ALP [Catalytic activity/Vol] 70 U/L Normal 46-116 [facility] Comment on above: Performed By: #### T 7, LIPID, CMP, TSH #### [facility] [address] [address] [address] Luci Christian ALT [Catalytic activity/Vol] 36 U/L Normal 16-63 [facility] Comment on above: Performed By: #### T 7, LIPID, CMP, TSH #### [facility] [address] [place] [address] Dr. Luci Christian Anion gap [Moles/Vol] 12.9 mmol/L Normal Th [facility] Comment on above: Performed By: #### T 7, LIPID, CMP, TSH #### [facility] [address] [place] [address] Dr. Luci Christian AST [Catalytic activity/Vol] 27 U/L Normal 15-37 [facility] Comment on above: Performed By: #### T 7, LIPID, CMP, TSH #### [facility] [address] [place] [address] Dr. Luci Christian Bilirubin [Mass/Vol] 0.6 mg/dL Normal 0.2-1.0 [facility] Comment on above: Performed By: #### T 7, LIPID, CMP, TSH #### [facility] [address] [place] [address] Dr. Luci Christian Calcium [Mass/Vol] 9.1 mg/dL Normal 8.5-10.1 [facility] Comment on above: Performed By: #### T 7, LIPID, CMP, TSH #### [facility] [address] [place] [address] Dr. Luci Christian Chloride [Moles/Vol] 104 mmol/L Normal 98-107 [facility] Comment on above: Performed By: #### T 7, LIPID, CMP, TSH #### [facility] [address] [place] [address] Dr. Luci Christian CO2 [Moles/Vol] 27.9 mmol/L Normal 21.0-32.0 [facility] Comment on above: Performed By: #### T 7, LIPID, CMP, TSH #### [facility] [address] [address] [address] Luci Christian Creatinine [Mass/Vol] 1.02 mg/dL Normal 0.70-1.30 [facility] Comment on above: Performed By: #### T 7, LIPID, CMP, TSH #### [facility] [address] [address] [address] Luci Christian EGFR-AF IRISH >60 Normal >=60 [facility] Comment on above: Performed By: #### T 7, LIPID, CMP, TSH #### [facility] [address] [address] [address] Luci Christian EGFR-NON AF IRISH >60 Normal >=60 [facility] Comment on above: Performed By: #### T 7, LIPID, CMP, TSH #### [facility] [address] [address] [address] Luci Christian Globulin (S) [Mass/Vol] 4.6 g/dL Normal [facility] Comment on above: Performed By: #### T 7, LIPID, CMP, TSH #### [facility] [address] [address] [address] Luci Christian Glucose [Mass/Vol] 98 mg/dL Normal 74-106 [facility] Comment on above: Performed By: #### T 7, LIPID, CMP, TSH #### [facility] [address] [address] [address] Luci Christian Potassium [Moles/Vol] 4.8 mmol/L Normal 3.5-5.1 [facility] Comment on above: Performed By: #### T 7, LIPID, CMP, TSH #### [facility] [address] [address] [address] Luci Christian Protein [Mass/Vol] 8.3 g/dL Critically high 6.4-8.2 [facility] Comment on above: Performed By: #### T 7, LIPID, CMP, TSH #### [facility] [address] [address] [address] Luci Christian Sodium [Moles/Vol] 140 mmol/L Normal 136-145 [facility] Comment on above: Performed By: #### T 7, LIPID, CMP, TSH #### [facility] [address] [address] [address] Luci Christian Urea nitrogen [Mass/Vol] 19.0 mg/dL Critically high 7.0-18.0 [facility] Comment on above: Performed By: #### T 7, LIPID, CMP, TSH #### [facility] [address] [address] [address] Luci Christian Urea nitrogen/Creatinine [Mass ratio] 18.6 mg/mg Normal [facility] Comment on above: Performed By: #### T 7, LIPID, CMP, TSH #### [facility] [address] [address] [address] Luci Christian TSHon 02-26-2023 TSH 1.563 uIU/mL Normal 0.358-3.740 [facility] Comment on above: Performed By: #### T 7, LIPID, CMP, TSH #### [facility] [address] [address] [address] Luci Christian No Panel Informationon 02-01 [facility] Vital Signs Date Time Vital Sign Value Performing Clinician Radha ojeda 08-29-2023 07:27-0500 Body height 185.4 cm Pacc 6 Work Phone: [facility] 08-29-2023 07:27-0500 Body temperature 97.9 [degF] Pacc 6 Work Phone: [facility] 08-29-2023 07:27-0500 Body weight 96.34 kg Pacc 6 Work Phone: [facility] 08-29-2023 07:27-0500 Diastolic blood pressure 85 mm[Hg] Pacc 6 Work Phone: [facility] 08-29-2023 07:27-0500 Heart rate 64 /min Pacc 6 Work Phone: [facility] 08-29-2023 07:27-0500 Respiratory rate 18 /min Pacc 6 Work Phone: [facility] 08-29-2023 07:27-0500 SaO2% (BldA) [Mass fraction] 100 % Pacc 6 Work Phone: [facility] 08-29-2023 07:27-0500 Systolic blood pressure 139 mm[Hg] Pacc 6 Work Phone: [facility] 04-29-2023 13:02-0400 Body height 185.4 cm Pacc 8 Work Phone: [facility] 04-29-2023 13:02-0400 Body temperature 97.81 [degF] Pacc 8 Work Phone: [facility] 04-29-2023 13:02-0400 Body weight 97.98 kg Pacc 8 Work Phone: [facility] 04-29-2023 13:02-0400 Diastolic blood pressure 75 mm[Hg] Pacc 8 Work Phone: [facility] 04-29-2023 13:02-0400 Heart rate 61 /min Pacc 8 Work Phone: [facility] 04-29-2023 13:02-0400 SaO2% (BldA) [Mass fraction] 99 % Pacc 8 Work Phone: [facility] 04-29-2023 13:02-0400 Systolic blood pressure 126 mm[Hg] Pacc 8 Work Phone: [facility] 02-01-2023 14:03-0400 Body height 185.4 cm Luma Garcia PA-C Work Phone: [facility] 02-01-2023 14:03-0400 Body weight 96.16 kg Luma Garcia PA-C Work Phone: [facility] Encounters Encounter Date Encounter Type Care Provider Facility Start: 04-02-2024 End: 04-02-2024 Patient encounter procedure Shaji Bishop MD Work Phone: Orthopaedics Comment on above: S/P total knee arthr oplasty, right (Primary Dx); Status post left knee replacement Start: 04-02-2024 End: 04-02-2024 ambulatory SHAJI E EDNA Facility:[facility] Start: 04-02-2024 End: 04-02-2024 Subsequent hospital visit by physician Sameer Orth[facility] Rej Work Phone: Radiology Comment on above: S/P total knee arthr oplasty, right [Z96.651] Start: 10-03-2023 End: 10-03-2023 Patient encounter procedure Luma Garcia PA-C Work Phone: Orthopaedics Comment on above: S/P total knee arthr oplasty, right (Primary Dx) Start: 10-03-2023 End: 10-03-2023 ambulatory LUMA GARCIA Facility:[facility] Start: 09-16-2023 Refill Luma Garcia PA-C Work Phone: Orthopaedics Comment on above: Refill Request Start: 09-09-2023 Telephone encounter Nicole Meeks RN Orthopaedics Comment on above: Post Op Refill Request Start: 09-05-2023 End: 09-05-2023 ambulatory MERLINEIVANA FULLER Facility:[facility] Start: 09-04-2023 End: 09-05-2023 ambulatory SHAJI E EDNA Facility:[facility] Start: 08-29-2023 End: 08-29-2023 ambulatory SHAJI E EDNA Facility:[facility] Start: 08-29-2023 End: 08-29-2023 Subsequent hospital visit by physician Ct 2 Main Qb (I-Stat) Radiology Comment on above: Primary osteoarthrit is of right knee [M17.11] Start: 08-29-2023 Encounter for other preprocedural examination MERLINE HOY [facility] Start: 08-29-2023 End: 08-29-2023 ambulatory MERLINE FULLER Facility:[facility] Start: 08-29-2023 End: 08-29-2023 Admission to establishment Pac Main 6 Work Phone: [facility] Start: 08-29-2023 End: 08-29-2023 Preprocedural examination done Pac Main 6 Work Phone: [facility] Work Phone: Start: 08-29-2023 End: 08-29-2023 ambulatory [facility] Work Phone: Pre Anesthesia Comment on above: Pre-operative examin ation (Primary Dx); Primary osteoarthritis of right knee; Chronic pain of right knee; Primary hypertension; Hyperlipidemia, unspecified hyperlipidemia type; Tricuspid valve insufficiency, unspecified etiology; Pulmonary hypertension (HCC); Dilation of aorta (HCC); Gastroesophageal reflux disease, unspecified whether esophagitis present; History of prostate cancer Start: 08-21-2023 Telephone encounter Tresa PHILLIP Orthopaedics Comment on above: [employer] - [employer] Start: 06-10-2023 ambulatory Shaji Bishop MD Work Phone: Orthopaedics Start: 06-07-2023 End: 06-07-2023 Patient encounter procedure Luma Garcia PA-C Work Phone: Orthopaedics Comment on above: S/P total knee arthr oplasty, left (Primary Dx); Acute post-operative pain Start: 06-07-2023 End: 06-07-2023 ambulatory LUMA GARCIA Facility:[facility] Start: 06-07-2023 End: 06-07-2023 Subsequent hospital visit by physician Orth General Xray A21 Radiology Comment on above: Arthritis of left kn ee [M17.12] Start: 05-09-2023 Telephone encounter Nicole Meeks RN Orthopaedics Comment on above: Post Op Start: 05-07-2023 End: 05-07-2023 Evaluation and management of inpatient MERLINE FULLER Facility:[facility] Start: 05-07-2023 End: 05-07-2023 Evaluation and management of inpatient SHAJI BISHOP Facility:[facility] Start: 05-06-2023 Telephone encounter Nicole Meeks RN Orthopaedics Comment on above: Patient Update (Surg lauren Arrival Time) Start: 05-03-2023 Orders Only Luma Garcia PA-C Work Phone: Orthopaedics Comment on above: Arthritis of left kn ee (Primary Dx) Start: 05-01-2023 ambulatory Dimple Dan RN [facility] Comment on above: Blood Management Start: 04-30-2023 End: 04-30-2023 Orders Only Luma Garcia PA-C Work Phone: Orthopaedics Comment on above: Arthritis of left kn ee (Primary Dx) Start: 04-29-2023 End: 04-29-2023 Subsequent hospital visit by physician Ct 2 Main Qb (I-Stat) Radiology Comment on above: Primary osteoarthrit is of left knee [M17.12] Start: 04-29-2023 End: 04-29-2023 Admission to [facility] Main Work Phone: [facility] Start: 04-29-2023 End: 04-29-2023 Preprocedural examination done [address] [id number] Work Phone: [facility] Work Phone: Start: 04-29-2023 Encounter for other preprocedural examination MERLINE FULLER [facility] Start: 04-29-2023 End: 04-29-2023 [address] [id number] Work Phone: Pre Anesthesia Comment on above: Pre-op evaluation (P rimary Dx) Start: 02-26-2023 End: 02-27-[address] MERLINE FULLER . Facility: Start: 02-21-2023 End: 02-21-2023 ambulatory OSMAR NORIEGA Facility: Start: 02-04-2023 ambulatory Dimple Dan RN [facility] Start: 02-01-2023 End: 02-01-2023 Patient encounter procedure Luma Garcia PA-C Work Phone: Orthopaedics Comment on above: Primary osteoarthrit is of left knee (Primary Dx); Primary osteoarthritis of right knee; Anemia, unspecified type Start: 02-01-2023 End: 02-01-2023 Subsequent hospital visit by physician Megan General Xray A21 Radiology Comment on above: Pain [R52] Start: 01-23-2023 Orders Only Luma Garcia PA-C Work Phone: Appointment Center Comment on above: Pain (Primary Dx) Procedures Date Procedure Procedure Detail Performing Clinician Start: 04-02-2024 Radiologic examinati on knee 3 views Luma Garcia PA-C Work Phone: Start: 08-29-2023 Ct lower extremity w /o contrast material Shaji Bishop MD Work Phone: Start: 08-29-2023 Radiologic exam knee complete 4/more views Shaji Bishop MD Work Phone: Start: 08-29-2023 Antibody screen MERLINE FULLER Comment on above: Order Comment: Speci men Type: BLOOD SPECIMENOrdering Facility: [facility] Address: [address] [place] [address] Performed By: #### T [id number] ####CC [facility] BLOOD BANKCLIA [id number] [address] Start: 06-07-2023 Radiologic examinati on knee 3 views Shaji Bishop MD Work Phone: Start: 05-07-2023 Antibody screen MERLINE FULLER Comment on above: Order Comment: Speci men Type: BLOOD SPECIMENOrdering Facility: [facility] Address: [address] [place], [place] [id number] Performed By: #### T SCR ####[facility] B[facility]CL[facility] [id number] [address] [facility] [place] Start: 04-29-2023 Ct lower extremity w /o contrast material Luma Garcia PA-C Work Phone: Start: 02-26-2023 PSA screening OSMAR NORIEGA Comment on above: Performed By: #### P [facility] #### [facility] [address] [place] [address] Dr. Luci Christian Start: 02-01-2023 Radiologic exam knee complete 4/more views Luma Garcia PA-C Work Phone: Plan of Treatment Date Care Activity Detail Author Start: 09-05-2026 Diabetes Screening Diabetes Screenmilton g [facility] Start: 08-29-2026 Diabetes Screening Diabetes Screenin g [facility] Start: 04-29-2026 [facility] Start: 04-29-2026 Diabetes Screening Diabetes Screenin g [facility] Start: 06-21-2024 Influenza vaccination Influenz a Vaccine (Season Ended) [facility] Start: 04-29-2024 BP CONTROLLED (<130/80) BP CONTROLLE D (<130/80) [facility] Start: 10-21-2023 Advance Directive Discussion Advance Directive Discussion [facility] Start: 10-21-2023 Behavioral Health Screening Behavioral Health Screening [facility] Start: 08-28-2023 End: 11-27-2023 TYPE AND SCREEN,30 DAY TYPE AND SCREEN,30 DAY Blood Bank Routine Pre-operative examination Expected: 08/28/2023, Expires: 11/27/2023 [facility] Work Phone: Comment on above: Expected: 08/28/2023 , Expires: 11/27/2023 Start: 06-21-2023 Covid-19 Vaccine () Covid-19 Vaccine () [facility] Start: 06-21-2023 Influenza vaccination [facility] Start: 06-12-2023 Arthrp kne condyle&p latu medial&lat compartments TOTAL KNEE REPLACEMENT Procedures Routine Primary osteoarthritis of right knee Expected: 06/12/2023 [facility] Work Phone: Comment on above: Expected: 06/12/2023 Start: 06-12-2023 End: 08-12-2023 Basic metabolic 2000 panel - Serum or Plasma BASIC METABOLIC PNL Lab Routine Primary osteoarthritis of right knee Expected: 06/12/2023, Expires: 08/12/2023 [facility] Work Phone: Comment on above: Expected: 06/12/2023 , Expires: 08/12/2023 Start: 06-12-2023 End: 08-12-2023 CBC panel - Blood by Automated count CBC Lab Routine Primary osteoarthritis of right knee Expected: 06/12/2023, Expires: 08/12/2023 [facility] Work Phone: Comment on above: Expected: 06/12/2023 , Expires: 08/12/2023 Start: 06-12-2023 End: 08-12-2023 CONFIRM BLOOD TYPE CONFIRM BLOOD TYPE Blood Bank Routine Primary osteoarthritis of right knee Expected: 06/12/2023, Expires: 08/12/2023 [facility] Work Phone: Comment on above: Expected: 06/12/2023 , Expires: 08/12/2023 Start: 06-12-2023 End: 07-09-2024 CT KNEE WO IVCON RIGHT CT KNEE WO IVCON RIGHT Radiology Routine Primary osteoarthritis of right knee Expected: 06/12/2023, Expires: 07/09/2024 [facility] Work Phone: Comment on above: Expected: 06/12/2023 , Expires: 07/09/2024 Start: 06-12-2023 End: 06-10-2024 ECG COMPLETE ECG COMPLETE ECG Routine Primary osteoarthritis of right knee Expected: 06/12/2023, Expires: 06/10/2024 [facility] Work Phone: Comment on above: Expected: 06/12/2023 , Expires: 06/10/2024 Start: 06-12-2023 REFER FOR ADMIT INTERVIEW REFE R FOR ADMIT INTERVIEW Procedures Routine Primary osteoarthritis of right knee Expected: 06/12/2023 [facility] Work Phone: Comment on above: Expected: 06/12/2023 Start: 06-12-2023 End: 08-12-2023 STAPH AUREUS PCR STAPH AUREUS PCR Lab Routine Primary osteoarthritis of right knee Expected: 06/12/2023, Expires: 08/12/2023 [facility] Work Phone: Comment on above: Expected: 06/12/2023 , Expires: 08/12/2023 Start: 06-12-2023 End: 08-12-2023 TYPE AND SCREEN,30 DAY TYPE AND SCREEN,30 DAY Blood Bank Routine Primary osteoarthritis of right knee Expected: 06/12/2023, Expires: 08/12/2023 [facility] Work Phone: Comment on above: Expected: 06/12/2023 , Expires: 08/12/2023 Start: 06-12-2023 End: 07-09-2024 XR KNEE GENERAL 4V AP BOTH/PA BOTH/LAT/MERC RIGHT XR KNEE GENERAL 4V AP BOTH/PA BOTH/LAT/MERC RIGHT Radiology Routine Primary osteoarthritis of right knee Expected: 06/12/2023, Expires: 07/09/2024 [facility] Work Phone: Comment on above: Expected: 06/12/2023 , Expires: 07/09/2024 Start: 06-12-2023 End: 07-09-2024 XR KNEE POST OP 3V AP/LAT/MERCHANT RIGHT XR KNEE POST OP 3V AP/LAT/MERCHANT RIGHT Radiology Routine Primary osteoarthritis of right knee Expected: 06/12/2023, Expires: 07/09/2024 [facility] Work Phone: Comment on above: Expected: 06/12/2023 , Expires: 07/09/2024 Start: 04-30-2023 End: 06-30-2023 Comprehensive metabolic 2000 panel - Serum or Plasma COMP METABOLIC PANEL Lab Routine Arthritis of left knee Expected: 04/30/2023, Expires: 06/30/2023 [facility] Work Phone: Comment on above: Expected: 04/30/2023 , Expires: 06/30/2023 Start: 02-01-2023 End: 04-03-2023 Albumin [Mass/volume] in Serum or Plasma ALBUMIN BLD Lab Routine Primary osteoarthritis of left knee Primary osteoarthritis of right knee Anemia, unspecified type Expected: 02/01/2023, Expires: 04/03/2023 [facility] Work Phone: Comment on above: Expected: 02/01/2023 , Expires: 04/03/2023 Start: 02-01-2023 End: 04-03-2023 CBC W Auto Differential panel - Blood CBC + DIFF Lab Routine Primary osteoarthritis of left knee Primary osteoarthritis of right knee Anemia, unspecified type Expected: 02/01/2023, Expires: 04/03/2023 [facility] Work Phone: Comment on above: Expected: 02/01/2023 , Expires: 04/03/2023 Start: 02-01-2023 End: 04-03-2023 Cobalamin (Vitamin B12) [Mass/volume] in Serum or Plasma VITAMIN B12 BLOOD Lab Routine Primary osteoarthritis of left knee Primary osteoarthritis of right knee Anemia, unspecified type Expected: 02/01/2023, Expires: 04/03/2023 [facility] Work Phone: Comment on above: Expected: 02/01/2023 , Expires: 04/03/2023 Start: 02-01-2023 End: 04-03-2023 Ferritin [Mass/volume] in Serum or Plasma FERRITIN BLD Lab Routine Primary osteoarthritis of left knee Primary osteoarthritis of right knee Anemia, unspecified type Expected: 02/01/2023, Expires: 04/03/2023 [facility] Work Phone: Comment on above: Expected: 02/01/2023 , Expires: 04/03/2023 Start: 02-01-2023 End: 04-03-2023 Folate [Mass/volume] in Serum or Plasma FOLATE SERUM Lab Routine Primary osteoarthritis of left knee Primary osteoarthritis of right knee Anemia, unspecified type Expected: 02/01/2023, Expires: 04/03/2023 [facility] Work Phone: Comment on above: Expected: 02/01/2023 , Expires: 04/03/2023 Start: 02-01-2023 End: 04-03-2023 Iron and Iron binding capacity panel - Serum or Plasma IRON + TIBC Lab Routine Primary osteoarthritis of left knee Primary osteoarthritis of right knee Anemia, unspecified type Expected: 02/01/2023, Expires: 04/03/2023 [facility] Work Phone: Comment on above: Expected: 02/01/2023 , Expires: 04/03/2023 Start: 02-01-2023 End: 04-03-2023 RETIC COUNT RETIC COUNT Lab Routine Primary osteoarthritis of left knee Primary osteoarthritis of right knee Anemia, unspecified type Expected: 02/01/2023, Expires: 04/03/2023 [facility] Work Phone: Comment on above: Expected: 02/01/2023 , Expires: 04/03/2023 Start: 10-21-2022 ADVANCE DIRECTIVE DISCUSSION ADVANCE DIRECTIVE DISCUSSION [facility] Start: 10-21-2022 DEPRESSION ASSESSMENT DEPRESSION ASS ESSMENT [facility] Start: 01-23-2016 Pneumococcal Vaccine : 65+ (1 - PCV) Pneumococcal Vaccine: 65+ (1 - PCV) [facility] Start: 01-23-2016 Pneumococcal Vaccine : 65+ (1 of 1 - PCV) Pneumococcal Vaccine: 65+ (1 of 1 - PCV) [facility] Start: 01-23-2016 PNEUMOCOCCAL: 65+ (1 - PCV) PNEUMOCOCCAL: 65+ (1 - PCV) [facility] Start: 11-22-2014 DIABETES SCREEN DIABETES SCREEN [facility] Start: 2011 RSV Vaccine (1 - 1-d ose 60+ series) RSV Vaccine (1 - 1-dose 60+ series) [facility] Start: 2001 SHINGRIX VACCINE (1 of 2) ZAVALA GRIX VACCINE (1 of 2) [facility] Start: 01-23-1996 COLOGUARD (FIT-DNA) COLOGUARD (FIT-D NA) [facility] Start: 01-23-1996 Colonoscopy COLONOSCOPY [facility] Start: 01-23-1996 COLORECTAL CANCER SCREENING COLORECTAL CANCER SCREENING [facility] Start: 01-23-[address] COLONOGRAPHY [facility] Start: 01-23-1996 FECAL OCCULT BLOOD FECAL OCCULT BLOO D [facility] Start: 01-23-1996 Screening for malign ant neoplasm of colon [facility] Start: 01-23-1996 SIGMOIDOSCOPY SIGMOIDOSCOPY [facility] Start: 1986 Lipid 1996 panel - S gunner or Plasma Lipid Screening [facility] Start: 1986 Lipid panel Lipid Screening [facility] Start: 1986 LIPID SCREEN LIPID SCREEN [facility] Start: 1970 Urine microalbumin profile [facility] Start: 1969 ANNUAL PCP TEAM HOUSING MANAGEMENT REPRESENTATIVE SANDEEP DISEASE VISIT ANNUAL PCP TEAM CHRONIC DISEASE VISIT [facility] Start: 1969 BP CONTROLLED (<130/80) BP CONTROLLE D (<130/80) [facility] Start: 1969 HEPATITIS C SCREENING HEPATITIS C [facility] Start: 1969 Hepatitis C screening Hepatitis C [facility] Start: 1951 COVID-19 VACCINE (#1) COVID-19 VACCI NE (#1) [facility] Start: 1950 Abdominal Aortic Ane urysm Screening Abdominal Aortic Aneurysm Screening [facility] Start: 1950 Abdominal aortic ane urysm screening Abdominal Aortic Aneurysm Screening [facility] End: 03-02-2024 CT KNEE WO IVCON LEFT CT KNEE WO IVCON LEFT Radiology Routine Primary osteoarthritis of left knee Primary osteoarthritis of right knee Anemia, unspecified type 1 Occurrences starting 02/01/2023 until 03/02/2024 [facility] Work Phone: Comment on above: 1 Occurrences starti ng 02/01/2023 until 03/02/2024 End: 04-29-2024 Echocardiography ECHO Cardiology Routine Pre-op evaluation 1 Occurrences starting 04/29/2023 until 04/29/2024 [facility] Work Phone: Comment on above: 1 Occurrences starti ng 04/29/2023 until 04/29/2024 STAPH AUREUS PCR STAPH AUREUS PC R Lab Routine Pre-operative examination Ordered: 08/28/2023 [facility] Work Phone: Comment on above: Ordered: 08/28/2023 TYPE AND SCREEN,30 DAY TYPE AND SCREEN,30 DAY Blood Bank Routine Pre-operative examination 08/29/2023 8:46 AM EST [facility] Work Phone: End: 11-01-2024 XR KNEE POST OP 3V AP/LAT/MERCHANT BILATERAL XR KNEE POST OP 3V AP/LAT/MERCHANT BILATERAL Radiology Routine S/P total knee arthroplasty, right 1 Occurrences starting 10/03/2023 until 11/01/2024 [facility] Work Phone: Comment on above: 1 Occurrences starti ng 10/03/2023 until 11/01/2024 [facility] Payers Date Payer Category Payer Unknown [employer] SUPPLEMENT [id number] 2021-Present [phone] [id number] [place], [place] [id number] Indemnity [id number] 2016 Medicare [id number] 1959 Medicare [id number] 1959 Unknown [id number] 1951 Unknown [id number] 1951 Unknown [id number] Social History Date Type Detail Facility Start: 08-20-2011 End: 04-29-2023 Tobacco smoking status VAIS Never smoked tobacco [facility] Start: 08-20-2011 End: 08-29-2023 Tobacco use and exposure Smokeless tobacco non-user [facility] Start: 02-01-2023 End: 08-29-2023 Alcohol intake Current drinker of alcohol (finding) [facility] Start: 02-01-2023 End: 04-29-2023 Alcohol intake [facility] Start: 11-09-2011 Alcohol Comment 1 drink of vod ka daily [facility] Start: 1950 Sex Assigned At Not on file [facility] Start: 04-29-2023 End: 08-21-2023 Tobacco use panel [facility] National Score (1-10 0), lower number is lower risk 73 [facility] Start: 04-29-2023 Alcohol Comment 1 drink of vod ka daily per pt 04/29/2023 [facility] Has the [employer], [employer], or [employer] threatened to shut off services in your home in past 12Mo No [facility] Do you belong to any clubs or organizations such as roman catholic groups, unions, fraternal or athletic groups, or school groups? Yes [facility] Are you now , , , , never or living with a partner? [facility] How often to you hav e a drink containing alcohol? 4 or more times a week [facility] How many standard dr inks containing alcohol do you have on a typical day? 1 or 2 [facility] How often do you hav e 6 or more drinks on 1 occasion? Never [facility] How hard is it for y ou to pay for the very basics like food, housing, medical care, and heating Not very hard [facility] Do you feel stress - tense, restless, nervous, or anxious, or unable to sleep at night because your mind is troubled all the time - these days [OSQ] Only a little [facility] (I/We) worried magaly er (my/our) food would run out before (I/we) got money to buy more. Never true [facility] Start: 08-29-2023 Tobacco smoking stat us NHIS Ex-smoker [facility] End: 10-21-1982 History of tobacco use Current smoker [facility] End: 10-21-1982 History of tobacco use Cigarette Smoker [facility] Start: 08-29-2023 Alcohol Comment 1 drink of vod ka daily per pt 08/29/2023 [facility] NEGATED: Highlighted rowStart: NINF History of tobacco use Passive smoker [facility] Medical Equipment Procedure Code Equipment Code Equipment Origin al Text Equipment Identifier Dates Baseplate Triath shivani 6 Tritanium [id number] Tibial 4 Cruciform Peg Keel Knee - [id number] Start: 05-07-2023 Component Triath shivani 5 Pa Femoral Cruciate Retain Bead Knee Right - [id number] Start: 09-04-2023 Component Tritan ium 38mm Metal 11mm Patellar Asymmetric Knee - [id number] Start: 05-07-2023 Insert Triathlon 6 9mm Tibial Bearing Condylar Stabilize Sterile Knee - [id number] Start: 05-07-2023 Component Triath shivani 5 Pa Femoral Cruciate Retain Bead Knee Left - [id number] Start: 05-07-2023 Component Tritan ium 35mm Metal 10mm Patellar Asymmetric Knee - [id number] Start: 09-04-2023 Insert Triathlon 6 9mm Tibial Bearing Condylar Stabilize Sterile Knee - [id number] Start: 11-15-2023 Baseplate Triath shivani 6 Tritanium [id number] Tibial 4 Cruciform Peg Keel Knee - [id number] Start: 09-04-2023 Goals Date Patient Goal Desired Activity /State Personal health goal Clinical Notes 02-01-2023 to 04-02-2024 Shaji Bishop MD - 04/02/2024 10:09 AM Wili Stokes, RT(R) - 04/02/2024 9:15 AM Luma Jackson PA-C - 10/03/2023 8:11 AM Osmar Arellano, RT(R) - 08/29/2023 11:00 AM EST Note Date & Type Note Facility 04-02-2024 Note HNO ID: [id number] Author: SHAJI BISHOP MD Service: ? Author Type: Physician Type: Progress Notes Filed: 04/02/2024 10:36 Note Text: Ortho Knee Follow Up Note Narrative Referring Provider: No referring provider defined for this encounter. PCP: Merline Fuller MD IMPRESSION/PLAN: 74 year old s/p Right 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 completed on 09/04/2023. Recent Surgeries this specialty 09/04/2023 (6mo) ROBOTIC ASSISTED TOTAL KNEE ARTHROPLASTY; COMPUTER ASSIST MUSCULOSKETAL SURG NAVIGATION ORTHO PROCED W/IMAGE GUIDANCE BASED ON CT/MRI IMAGES (Right; Right) Shaji Bishop MD; Erin Paez DO; Michelet Johnston MD - Posted 05/07/2023 (10mo) ROBOTIC ASSISTED TOTAL KNEE ARTHROPLASTY; COMPUTER ASSIST MUSCULOSKETAL SURG NAVIGATION ORTHO PROCED W/IMAGE GUIDANCE BASED ON CT/MRI IMAGES (Left; Left) Shaji Bishop MD; Malcom Azul MD; Blanco Meyer MD - Posted PAIN EVALUATION No data found in the last 1 encounters. IMPRESSION: No complaints or limitations At normal post-operative stage of recovery. PLAN: Continue current conservative treatment. Rest, Ice, Compression, Elevation PRN. Patient Reassurance: Patient reassured and supported. All questions answered. Follow up 1 year X-Rays Needed Ronnie Abebe presents today for a an intermediate post-op visit ACTIVE PROBLEM LIST History of Prostate Cancer Hypertension Hyperlipidemia Gerd (Gastroesophageal Reflux Disease) Arthritis Primary Osteoarthritis of Left Knee Tricuspid Regurgitation Pulmonary Hypertension (Hcc) Dilation of Aorta (Hcc) Primary Osteoarthritis of Right Knee Status post op: BMI: There is no height or weight on file to calculate BMI. Post-operative recovery was complicated by uneventful/none. Readmission(s) since surgery (90 days post)? No ED Visits AND Hospitalizations - Last 180 days None Patient rates their condition as improving. Does the patient still experience pain? No Post Op discharge patient location: in home. Functional Assessment is as follows: completed course of therapy and completed home PT. Functional difficulties: None. Pain Medication: None Currently Ambulating with: no ambulation aides EXAM: POST OP KNEE Bilateral Post-Operative Knee Ambulates with a: normal gait. SKIN: Appropriate postop appearance and No evidence of erythema, warmth, discharge or drainage. LEFT KNEE: Range of motion is 0 degrees in extension and 120 degrees of flexion. Extension La degrees Pain with ROM:No There is None effusion. Mal-alignment: No Tender to the palpation of None Neurovascular Status: Sensation Intact, Moves foot and ankle up AND down, and 2+ dorsalis pedis Stability:Anterior/Posterior- Yes, stable and Varus/Valgus- Yes, stable Quad strength: intact RIGHT KNEE: Range of motion is 0 degrees in extension and 120 degrees of flexion. Extension La degrees Pain with ROM:No There is None effusion. Mal-alignment: No Tender to the palpation of None Neurovascular Status: Sensation Intact, Moves foot and ankle up AND down, and 2+ dorsalis pedis Stability:Anterior/Posterior- Yes, stable and Varus/Valgus- Yes, stable Quad strength: intact Imagin. Implants are well aligned. Implants are well fixed. There is no evidence of loosening. The History, Exam, and Plan as documented by the Orthopaedic surgery resident/fellow/physician gallery assistant was reviewed and discussed in detail. We have discussed the case and management of the patient's care, and I agree with the above documented information and plan. Provider: Shaji Bishop MD Completed by: Shaji Bishop MD. [facility] 04-02-2024 History of Present illness Narrative Ortho Knee Follow Up Note Narrative Referring Provider: No referring provider defined for this encounter. PCP: Merline Fuller MD IMPRESSION/PLAN: 74 year old s/p Right 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 completed on 09/04/2023. Recent Surgeries this specialty 09/04/2023 (6mo) ROBOTIC ASSISTED TOTAL KNEE ARTHROPLASTY; COMPUTER ASSIST MUSCULOSKETAL SURG NAVIGATION ORTHO PROCED W/IMAGE GUIDANCE BASED ON CT/MRI IMAGES (Right; Right) Shaji Bishop MD; Erin Paez DO; Michelet Johnston MD - Posted 05/07/2023 (10mo) ROBOTIC ASSISTED TOTAL KNEE ARTHROPLASTY; COMPUTER ASSIST MUSCULOSKETAL SURG NAVIGATION ORTHO PROCED W/IMAGE GUIDANCE BASED ON CT/MRI IMAGES (Left; Left) Shaji Bishop MD; Malcom Azul MD; Blanco Meyer MD - Posted PAIN EVALUATION No data found in the last 1 encounters. IMPRESSION: No complaints or limitations At normal post-operative stage of recovery. PLAN: Continue current conservative treatment. Rest, Ice, Compression, Elevation PRN. Patient Reassurance: Patient reassured and supported. All questions answered. Follow up 1 year X-Rays Needed Ronnie Abebe presents today for a an intermediate post-op visit ACTIVE PROBLEM LIST History of Prostate Cancer Hypertension Hyperlipidemia Gerd (Gastroesophageal Reflux Disease) Arthritis Primary Osteoarthritis of Left Knee Tricuspid Regurgitation Pulmonary Hypertension (Hcc) Dilation of Aorta (Hcc) Primary Osteoarthritis of Right Knee Status post op: BMI: There is no height or weight on file to calculate BMI. Post-operative recovery was complicated by uneventful/none. Readmission(s) since surgery (90 days post)? No ED Visits & Hospitalizations - Last 180 days None Patient rates their condition as improving. Does the patient still experience pain? No Post Op discharge patient location: in home. Functional Assessment is as follows: completed course of therapy and completed home PT. Functional difficulties: None. Pain Medication: None Currently Ambulating with: no ambulation aides EXAM: POST OP KNEE Bilateral Post-Operative Knee Ambulates with a: normal gait. SKIN: Appropriate postop appearance and No evidence of erythema, warmth, discharge or drainage. LEFT KNEE: Range of motion is 0 degrees in extension and 120 degrees of flexion. Extension La degrees Pain with ROM:No There is None effusion. Mal-alignment: No Tender to the palpation of None Neurovascular Status: Sensation Intact, Moves foot and ankle up & down, and 2+ dorsalis pedis Stability:Anterior/Posterior- Yes, stable and Varus/Valgus- Yes, stable Quad strength: intact RIGHT KNEE: Range of motion is 0 degrees in extension and 120 degrees of flexion. Extension La degrees Pain with ROM:No There is None effusion. Mal-alignment: No Tender to the palpation of None Neurovascular Status: Sensation Intact, Moves foot and ankle up & down, and 2+ dorsalis pedis Stability:Anterior/Posterior- Yes, stable and Varus/Valgus- Yes, stable Quad strength: intact Imagin. Implants are well aligned. Implants are well fixed. There is no evidence of loosening. The History, Exam, and Plan as documented by the Orthopaedic surgery resident/fellow/physician gallery assistant was reviewed and discussed in detail. We have discussed the case and management of the patient's care, and I agree with the above documented information and plan. Provider: Shaji Bishop MD Completed by: Shaji Bishop MD. documented in this encounter [facility] 04-02-2024 History of Present illness Narrative Radiology Service Progress Note PATIENT NAME: Ronnie Abebe DATE OF SERVICE: April 02, 2024 TIME: 9:42 AM PATIENT IDENTITY VERIFICATION COMPLETED USING TWO (2) IDENTIFIERS: Name and Date of confirmed by patient verbally. FALL SCREENING: Has the patient had 2 falls in the last year or 1 fall with injury or currently using an Ambulatory Assistive Device (Walker, Cane, Wheelchair, Crutches, etc.)? No PATIENT GENDER DATA: Male PATIENT RELEVANT IMPLANT DATA REVIEWED: Not Applicable PATIENT PRESENTS WITH AN IMPLANTABLE OR ATTACHED CHIROPRACTIC ASSISTANT: No RADIOLOGY DEPARTMENT: General X-ray: Exam(s) Completed: Lower Extremity X-Ray(s): Knee, AP / Lat / Merchant Bilateral and Wt. Bearing PERIPHERAL IV DATA: Not applicable SIGNED BY:NIECY BEARDEN(RT) AND RT Leslee(R) April 02, 2024 9:42 AM documented in this encounter [facility] 04-02-2024 Note HNO ID: [id number] Author: WILI RICE RT(R) Service: Radiology Author Type: Technologist Type: Progress Notes Filed: 04/02/2024 09:45 Note Text: Radiology Service Progress Note PATIENT NAME: Ronnie Abebe DATE OF SERVICE: April 02, 2024 TIME: 9:42 AM PATIENT IDENTITY VERIFICATION COMPLETED USING TWO (2) IDENTIFIERS: Name and Date of confirmed by patient verbally. FALL SCREENING: Has the patient had 2 falls in the last year or 1 fall with injury or currently using an Ambulatory Assistive Device (Walker, Cane, Wheelchair, Crutches, etc.)? No PATIENT GENDER DATA: Male PATIENT RELEVANT IMPLANT DATA REVIEWED: Not Applicable PATIENT PRESENTS WITH AN IMPLANTABLE OR ATTACHED CHIROPRACTIC ASSISTANT: No RADIOLOGY DEPARTMENT: General X-ray: Exam(s) Completed: Lower Extremity X-Ray(s): Knee, AP / Lat / Merchant Bilateral and Wt. Bearing PERIPHERAL IV DATA: Not applicable SIGNED BY:NIECY BEARDEN(RT) AND RT Leslee(R) April 02, 2024 9:42 AM [facility] 10-03-2023 Note HNO ID: [id number] Author: Luma Garcia PA-C Service: ? Author Type: Physician Typewriter Assembly And Parts Inspector Type: Progress Notes Filed: 10/03/2023 11:08 AM Note Text: Ortho Knee Follow Up Note Narrative Referring Provider: No referring provider defined for this encounter. PCP: Merline Fuller MD IMPRESSION/PLAN: 73 year old s/p Right 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 completed on 09/04/2023. Recent Surgeries this specialty 09/04/2023 (4w, 1d) ROBOTIC ASSISTED TOTAL KNEE ARTHROPLASTY; COMPUTER ASSIST MUSCULOSKETAL SURG NAVIGATION ORTHO PROCED W/IMAGE GUIDANCE BASED ON CT/MRI IMAGES (Right; Right) Shaji Bishop MD; Erin Paez DO; Michelet Johnston MD - Posted 05/07/2023 (4mo) ROBOTIC ASSISTED TOTAL KNEE ARTHROPLASTY; COMPUTER ASSIST MUSCULOSKETAL SURG NAVIGATION ORTHO PROCED W/IMAGE GUIDANCE BASED ON CT/MRI IMAGES (Left; Left) Shaji Bishop MD; Malcom Azul MD; Blanco Meyer MD - Posted PAIN EVALUATION No data found in the last 1 encounters. IMPRESSION: Excellent early outcome Incision well healed 3-120 degrees of ROM PLAN: Continue current conservative treatment. Order for outpatient PT Demontrated exercises for extension Ok to progress to WBAT Patient Reassurance: Patient reassured and supported. All questions answered. Follow up 3 months No X-Rays Needed Ronnie Abebe presents today for a a routine 1st post-op visit ACTIVE PROBLEM LIST History of Prostate Cancer Hypertension Hyperlipidemia Gerd (Gastroesophageal Reflux Disease) Arthritis Primary Osteoarthritis of Left Knee Tricuspid Regurgitation Pulmonary Hypertension (Hcc) Dilation of Aorta (Hcc) Primary Osteoarthritis of Right Knee Status post op: BMI: There is no height or weight on file to calculate BMI. Post-operative recovery was complicated by uneventful/none. Readmission(s) since surgery (90 days post)? No ED Visits AND Hospitalizations - Last 180 days 09/04/23 Shaji Bishop MD, [id number] Status post total knee replacement, right ..., Admission (Discharged) 05/07/23 Shaji Bishop MD, [id number] Primary osteoarthritis of left knee, Admission (Discharged) Patient rates their condition as improving. Does the patient still experience pain? Onset: yes. Location: Right knee. Frequency: occasionally. Pain scale: 2. Pain character: ache. Relieving factors: Rest, Ice, Sitting, Pain medication, Cane, and Walker. Aggravating factors: Prolonged standing Post Op discharge patient location: in home. Functional Assessment is as follows: completed home PT and has already started outpatient PT as of this visit. Functional difficulties: Interferes with sleep. Pain Medication: Non-narcotic Currently Ambulating with: a cane and a walker EXAM: POST OP KNEE Right Post-Operative Knee Ambulates with a uses: a walker. SKIN: Appropriate postop appearance and No evidence of erythema, warmth, discharge or drainage. Range of motion is lacking a few degrees secondary to tight hamstrings degrees in extension and 120 degrees of flexion. Extension La degrees Pain with ROM: No There is Slight effusion. Mal-alignment: No Tender to the palpation of None Neurovascular Status: Sensation Intact, Moves foot and ankle up AND down, and 2+ dorsalis pedis Stability:Anterior/Posterior- Yes, stable and Varus/Valgus- Yes, stable Quad strength: normal Imagin. Implants are well aligned. Implants are well fixed. There is no evidence of loosening. Provider: Luma Garcia PA-C Completed by: Luma Garcia PA-C [facility] 10-03-2023 History of Present illness Narrative Ortho Knee Follow Up Note Narrative Referring Provider: No referring provider defined for this encounter. PCP: Merline Fuller MD IMPRESSION/PLAN: 73 year old s/p Right 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 completed on 09/04/2023. Recent Surgeries this specialty 09/04/2023 (4w, 1d) ROBOTIC ASSISTED TOTAL KNEE ARTHROPLASTY; COMPUTER ASSIST MUSCULOSKETAL SURG NAVIGATION ORTHO PROCED W/IMAGE GUIDANCE BASED ON CT/MRI IMAGES (Right; Right) Shaji Bishop MD; Erin Paez DO; Michelet Johnston MD - Posted 05/07/2023 (4mo) ROBOTIC ASSISTED TOTAL KNEE ARTHROPLASTY; COMPUTER ASSIST MUSCULOSKETAL SURG NAVIGATION ORTHO PROCED W/IMAGE GUIDANCE BASED ON CT/MRI IMAGES (Left; Left) Shaji Bishop MD; Malcom Azul MD; Blanco Meyer MD - Posted PAIN EVALUATION No data found in the last 1 encounters. IMPRESSION: Excellent early outcome Incision well healed 3-120 degrees of ROM PLAN: Continue current conservative treatment. Order for outpatient PT Demontrated exercises for extension Ok to progress to WBAT Patient Reassurance: Patient reassured and supported. All questions answered. Follow up 3 months No X-Rays Needed Ronnie Abebe presents today for a a routine 1st post-op visit ACTIVE PROBLEM LIST History of Prostate Cancer Hypertension Hyperlipidemia Gerd (Gastroesophageal Reflux Disease) Arthritis Primary Osteoarthritis of Left Knee Tricuspid Regurgitation Pulmonary Hypertension (Hcc) Dilation of Aorta (Hcc) Primary Osteoarthritis of Right Knee Status post op: BMI: There is no height or weight on file to calculate BMI. Post-operative recovery was complicated by uneventful/none. Readmission(s) since surgery (90 days post)? No ED Visits & Hospitalizations - Last 180 days 09/04/23 Shaji Bishop MD, [id number] Status post total knee replacement, right ..., Admission (Discharged) 05/07/23 Shaji Bishop MD, [id number] Primary osteoarthritis of left knee, Admission (Discharged) Patient rates their condition as improving. Does the patient still experience pain? Onset: yes. Location: Right knee. Frequency: occasionally. Pain scale: 2. Pain character: ache. Relieving factors: Rest, Ice, Sitting, Pain medication, Cane, and Walker. Aggravating factors: Prolonged standing Post Op discharge patient location: in home. Functional Assessment is as follows: completed home PT and has already started outpatient PT as of this visit. Functional difficulties: Interferes with sleep. Pain Medication: Non-narcotic Currently Ambulating with: a cane and a walker EXAM: POST OP KNEE Right Post-Operative Knee Ambulates with a uses: a walker. SKIN: Appropriate postop appearance and No evidence of erythema, warmth, discharge or drainage. Range of motion is lacking a few degrees secondary to tight hamstrings degrees in extension and 120 degrees of flexion. Extension La degrees Pain with ROM: No There is Slight effusion. Mal-alignment: No Tender to the palpation of None Neurovascular Status: Sensation Intact, Moves foot and ankle up & down, and 2+ dorsalis pedis Stability:Anterior/Posterior- Yes, stable and Varus/Valgus- Yes, stable Quad strength: normal Imagin. Implants are well aligned. Implants are well fixed. There is no evidence of loosening. Provider: Luma Garcia PA-C Completed by: Luma Garcia PA-C documented in this encounter [facility] 10-03-2023 Note HNO ID: [id number] Author: Megan Bearden RT(R) Service: Radiology Author Type: Technologist Type: Progress Notes Filed: 10/03/2023 8:02 AM Note Text: Radiology Service Progress Note PATIENT NAME: Ronnie Abebe DATE OF SERVICE: October 03, 2023 TIME: 8:02 AM PATIENT IDENTITY VERIFICATION COMPLETED USING TWO (2) IDENTIFIERS: Name and Date of confirmed by patient verbally. FALL SCREENING: Has the patient had 2 falls in the last year or 1 fall with injury or currently using an Ambulatory Assistive Device (Walker, Cane, Wheelchair, Crutches, etc.)? Yes, Patient High Risk for Falls What interventions were put in place to prevent falls during this visit? Instructed Patient to Call for Help if Needed, Offered Assistance with Transfers/Clothing, and Instructed Patient to Remain Seated (Not on Exam Table) Until Exam PATIENT GENDER DATA: Male PATIENT RELEVANT IMPLANT DATA REVIEWED: Not Applicable RADIOLOGY DEPARTMENT: General X-ray: Exam(s) Completed: Lower Extremity X-Ray(s): Knee, AP / Lat / Merchant Right and Wt. Bearing PERIPHERAL IV DATA: Not applicable SIGNED BY: RT Jyotsna(R) October 03, 2023 8:02 AM [facility] 09-16-2023 Miscellaneous Notes Re: s/p RTKA on 09/04. Requesting refill of OxyIr. Last fill on 09/10. States he is out; took last 2 last night. [facility] documented in this encounter [facility] 09-09-2023 Miscellaneous Notes The following medication(s) were electronically ordered by Luma Garcia PA-C on 09/09/2023. The prescription(s) were sent to [facility]. Requested Prescriptions Pending Prescriptions Disp Refills oxyCODONE IR (ROXICODONE) 5 mg immediate release tablet 42 tablet 0 Sig: Take 1-2 tablets by mouth every 4 hours as needed for pain for up to 7 days. Do not start before September 10, 2023. The following medications were electronically ordered by Luma Garcia PA-C Oxycodone 5mg. The prescription was e-scripted to the patient's pharmacy. Patient is s/p R TKR (major orthopaedic surgery) and based upon prevailing medical standards of care their pain is unlikely to be controlled with the standard 30 MED average per day in the acute post operative phase. Patient has been educated on the goal to taper their use of this medication and alternatives to opioid pain management in this post operative period have been discussed and implemented as medically appropriate. Patient and their parents / partner / family was counseled on the risks of exceeding the recommended 30 MED average per day. documented in this encounter [facility] 09-09-2023 Miscellaneous Notes Patient has been identified by name and date of : Yes, Provider Nicole Meeks RN Date 09/09/2023 Time 3:03pm Surgeon Dr. Bishop Surgery Right 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 Date of Surgery 09/04/2023 Date of Discharge 09/05/2023 Support person at home yes Weight Bearing status: PWB Activity Up with Walker, Home Health Pain Level on a pain scale 0-10 10/10 when walking Current pain regimen Tylenol as ordered, Oxycodone, usually two tablets every four hours. He will need a refill tomorrow, will pend to [facility]. Reminded how to take two for severe pain, one for moderate and spread dosing as pain improves. Icing and Elevating Doing already, reviewed how to properly ice and elevate and advised doing so for 20-30 minutes at least 6 times per day Constipation Had BM yesterday Blood Thinner Aspirin as ordered. Reviewed S&S of DVT/PE Incision reviewed incision care, when and how to shower and &S of infection Dressings Clean, Dry, Intact Patient concerns None Follow up appointments 10/03/2023 Patient aware Nicole Meeks RN documented in this encounter [facility] 09-05-2023 Note HNO ID: [id number] Author: Kelle Palma PA-C Service: Orthopaedic Surgery Author Type: Physician Typewriter Assembly And Parts Inspector Type: Plan of Care Filed: 09/05/2023 8:35 AM Note Text: Orthopaedic plan of care Plan of care discussed with: Provider, RN, Patient. Patient sitting up in bed. His pain is tolerable. Patient is eager to discharge home this morning. He will work with PT this morning. CM checking on [facility] Discharge instructions and med rec completed. Denies any chest pain, shortness of breath, or lightheadedness BP 147/88 Pulse 80 Temp 37 ?C (98.6 ?F) (Oral) Resp 20 Ht 185.4 cm (6' 1 ) Wt 102.1 kg (225 lb 1.4 oz) SpO2 95% BMI 29.70 kg/m? Plan: Physical Therapy evaluation - Cleared from PT, home PT DVT prophylaxis - ASA 81mg BID 30 days , IPDs Dressing - Aquacel Drains - None Pain control - Multimodal pain control Antibiotics - 24 hours perioperative then DC PT/OT consulted and skilled for home PT Discussed with CM HHC being arranged Anticipate discharge today Principal Problem: Primary osteoarthritis of right knee Kelle Palma PA-C [facility] 09-05-2023 Note HNO ID: [id number] Author: Erin Paez DO Service: Orthopaedic Surgery Author Type: Resident Type: Progress Notes Filed: 09/05/2023 6:27 AM Note Text: ORTHOPAEDIC SURGERY POST-OP PROGRESS NOTE SERVICE DATE: 09/05/2023 SERVICE TIME: 6:27 AM Subjective Patient states that they are comfortable Well Controlled knee(s) pain. Denies incisional pain. Denies fevers, chills, chest pain, SOB Objective VITAL SIGNS: BP 161/89 Pulse 84 Temp 37 ?C (98.6 ?F) (Oral) Resp 16 Ht 185.4 cm (6' 1 ) Wt 102.1 kg (225 lb 1.4 oz) SpO2 96% BMI 29.70 kg/m? INTAKE AND OUTPUT: Intake/Output Summary (Last 24 hours) at 09/05/2023 0627 Last data filed at 09/05/2023 0507 Gross per 24 hour Intake 2327.94 ml Output 775 ml Net 1552.94 ml PHYSICAL EXAMINATION: Right Lower Extremity: Dorsalis pedis pulses palpable. Posterior tibial pulses palpable. Dorsi flexion 5/5. Plantar flexion 5/5. Extensor hallucis extension: 5/5. Sensory intact to light touch L1-S1. Dressing clean, dry, and intact. Surgical site no drainage and skin edges well approximated. Problem Review and Assessment: Patient monitored, no new events overnight. LABS: Recent Labs 09/05/23 0457 HB 13.0 HCT 39.8 POST OPERATIVE COMPLICATIONS: Complicated by: uneventful/none DATA: Diagnostic tests reviewed for today's visit: Most recent labs and imaging results. Assessment/Plan S/P Procedure(s) (LRB): ROBOTIC ASSISTED TOTAL KNEE ARTHROPLASTY (Right) on 09/04/2023 POSTOP PLAN: Physical Therapy evaluation - Cleared from PT, home PT DVT prophylaxis - ASA 81mg BID 30 days , IPDs Dressing - Aquacel Drains - None Pain control - Multimodal pain control Antibiotics - 24 hours perioperative then DC Case Management for discharge planning - Ok for discharge today ACTIVE PROBLEM LIST History of Prostate Cancer Hypertension Hyperlipidemia Gerd (Gastroesophageal Reflux Disease) Arthritis Primary Osteoarthritis of Left Knee Tricuspid Regurgitation Pulmonary Hypertension (Hcc) Dilation of Aorta (Hcc) Primary Osteoarthritis of Right Knee Plan of care discussed with: Provider, RN, Patient. Erin Paez DO Resident Physician Department of Orthopedic Surgery 09/05/2023 6:27 AM [facility] 09-04-2023 Note HNO ID: [id number] Author: Dominique Castaneda APRN.CRNA Service: ? Author Type: Nurse Interventional Radiology Tech Type: Anesthesia Procedure Notes Filed: 09/04/2023 11:31 AM Note Text: ANESTHESIOLOGY PROCEDURE NOTE Spinal Block General Information Procedure Start Time/Medication Administration: 09/04/2023 11:10 AM Reason for Block: primary surgical anesthetic Staffing Anesthesiologist: Alba Goel MD Performed by: anesthesiologist Preparation Sterility Preparation: hand hygiene performed prior to procedure, sterile gloves, drapes, and procedure tray, surgical cap used, mask used, sterile drape used during line insertion, skin prep agent completely dried prior to procedure Site Prep: Duraprep Procedure Details Patient Position: sitting Monitoring: Pulse Ox, EKG and NIBP Approach: Midline Location: L4-5 Injection Technique: single-shot Needle Needle Type: pencil-tip Needle Gauge: 25 G Assessment Sensory Level: T8 Events: tolerated well Medications Administered bupivacaine (PF) 0.5 % (5 mg/mL) injection - INTRATHECAL 15 mg - 09/04/2023 11:10:00 AM SIGNATURE: Dominique Castaneda APRN.CRNA PATIENT NAME: Ronnie Abebe DATE: September 04, 2023 TIME: 11:31 AM CSN: [id number] [facility] 09-04-2023 Note HNO ID: [id number] Author: Jamel Guevara MD Service: ? Author Type: Resident Type: Anesthesia Procedure Notes Filed: 09/04/2023 7:55 AM Note Text: Attestation signed by Melissa Burgos MD at 09/05/2023 11:18 AM I evaluated the patient and personally participated in the murguia components. I agree with the resident's findings and plan as documented and have discussed the case and management of the patient's care with the resident. Signature: Melissa Burgos MD Service Date: 09/05/2023 Service Time: 11:18 AM ANESTHESIOLOGY PROCEDURE NOTE Peripheral Nerve Block General Information Procedure Start Time/Medication Administration: 09/04/2023 7:35 AM Procedure End time: 09/04/2023 7:45 AM Reason for block: post-op pain management/at surgeon's request Staffing Anesthesiologist: Melissa Burgos MD Resident: Jamel Guevara MD Performed by: anesthesiologist and resident Preparation Sterility Preparation: hand hygiene performed prior to procedure, sterile gloves, drapes, and procedure tray, surgical cap used, mask used, sterile drape used during line insertion, skin prep agent completely dried prior to procedure Sterility Technique Not Completely Performed Due to Extreme Emergency: No Site Prep: Chloraprep Pre-Procedure Neuro Exam Location: RLE Sensory: intact Motor: intact Procedure Details Patient Position: supine Monitoring: Pulse OX, EKG and NIBP Block Type Lower Extremity: distal femoral (adductor canal) (adductor canal approach) and Adductor canal approach Laterality: right Injection Technique: single-shot Ultrasound Guided: Yes Image in Chart: yes Moderate Sedation: Yes Local Infiltration: Yes Needle Needle Type: echogenic Needle Gauge: 20 G Needle Length: 10 cm Needle Localization: ultrasound Assessment Injection assessment: negative aspiration, no paresthesia on injection, incremental injection and local visualized surrounding nerve on ultrasound Paresthesia: none Medications Administered Ropivacaine (PF) 5 mg/mL (0.5 %) injection (NAROPIN), 20 mL Comments Risks, benefits, and alternatives to block discussed prior to start of block procedure. Patient agreed to proceed. Patient is communicating. Procedure is well tolerated. Extended block is expected up to 24 hours post-block. Patient can be discharged to floor/home with the block intact. Standard ASA monitors were used. Vital signs were stable throughout. SIGNATURE: Jamel Guevara MD PATIENT NAME: Ronnie Abebe DATE: September 04, 2023 TIME: 7:54 AM CSN: [id number] [facility] 08-29-2023 History of Present illness Narrative Radiology Service Progress Note PATIENT NAME: Ronnie Abebe DATE OF SERVICE: August 29, 2023 TIME: 9:48 AM PATIENT IDENTITY VERIFICATION COMPLETED USING TWO (2) IDENTIFIERS: Name and Date of confirmed by patient verbally and Name and Date of confirmed by identification band. FALL SCREENING: Has the patient had 2 falls in the last year or 1 fall with injury or currently using an Ambulatory Assistive Device (Walker, Cane, Wheelchair, Crutches, etc.)? No PATIENT GENDER DATA: Male PATIENT RELEVANT IMPLANT DATA REVIEWED: Yes RADIOLOGY DEPARTMENT: CT; Exam(s) Completed: Right knee Andrews PERIPHERAL IV DATA: Not applicable SIGNED BY: RT Barrett(Alba) August 29, 2023 9:48 AM documented in this encounter [facility] 08-29-2023 Note HNO ID: [id number] Author: Osmar Kuo RT(Alba) Service: Radiology Author Type: Technologist Type: Progress Notes Filed: 08/29/2023 10:03 AM Note Text: Radiology Service Progress Note PATIENT NAME: Ronnie Abebe DATE OF SERVICE: August 29, 2023 TIME: 9:48 AM PATIENT IDENTITY VERIFICATION COMPLETED USING TWO (2) IDENTIFIERS: Name and Date of confirmed by patient verbally and Name and Date of confirmed by identification band. FALL SCREENING: Has the patient had 2 falls in the last year or 1 fall with injury or currently using an Ambulatory Assistive Device (Walker, Cane, Wheelchair, Crutches, etc.)? No PATIENT GENDER DATA: Male PATIENT RELEVANT IMPLANT DATA REVIEWED: Yes RADIOLOGY DEPARTMENT: CT; Exam(s) Completed: Right knee Andrews PERIPHERAL IV DATA: Not applicable SIGNED BY: Osmar Kuo, RT(R) August 29, 2023 9:48 AM [facility] 08-29-2023 Instructions Dwain Mcintosh APRN.HIDE MILL WORKER - 08/29/2023 7:56 AM EST PATIENT PREOPERATIVE INSTRUCTIONS Dr. Shaji Bishop has scheduled you for your procedure at this surgery center: [facility] Scheduling Office: [phone] --[address] [place] [address]. Please read below carefully for your personalized instructions. Dietary Restrictions: - No solid food after midnight. - You may have 12 ounces of clear liquids (water, clear juices such as apple juice or gatorade, carbonated beverages, clear tea, black coffee, jello) until 2 hours before scheduled arrival at facility. Medications: Unless instructed differently below, stay on all of your medications until your surgery. If you start any new medications after today's visit, please contact your surgeon. Pre-Surgery Med Instructions Medication Instructions amLODIPine (NORVASC) 10 mg tablet Take the day of surgery with a small sip of water atorvastatin (LIPITOR) 40 mg tablet Take the day of surgery with a small sip of water lisinopril (ZESTRIL) 40 mg tablet Do not take for 24 hours prior to surgery atenolol (TENORMIN) 50 mg tablet Take the day of surgery with a small sip of water FAMOTIDINE (PEPCID ORAL) Do not take the day of surgery multivitamin ORAL tablet Stop 7 days before surgery If you take any medications for erectile dysfunction-Cialis (Tadalafil), Levitra, Staxyn (Vardenafil) Viagra (Sildenenafil please do not take these for 48 hours before surgery. If you start any new medications after today's visit, please contact the surgeon's office. Blood Thinning Medications: - Stop NSAIDS (Ibuprofen, Advil, Aleve, Motrin, Celebrex, Mobic, etc.) 7 days before surgery, as directed by your surgeon. - Stop Aspirin 7 days before surgery, as directed by your surgeon. - Stop Vitamin E, ALL multi-vitamins, herbals and dietary supplements 7 days before surgery. - You may take Tylenol (Acetaminophen) or any of your pain medications that do not contain aspirin or NSAIDS as needed. Important Reminders: - Candy, mints, and tobacco products are NOT permitted the morning of surgery. - Hearing aids, dentures and glasses may be worn the morning of surgery. - NO jewelry, body piercings, makeup, hairpins or contacts are to be worn the day of surgery. If you develop symptoms such as a fever, cold, or flu, or have other changes to your health within TWO DAYS of scheduled surgery or the morning of surgery, please contact the surgery center above. Personal Belongings: -Please have photo ID and insurance cards. -If you do not have a copy of advance directives on file with us, please bring a copy with you on the day of surgery. - Leave ALL valuables and money at home or with family members. Arrival Time for Surgery: - To obtain your arrival time for surgery, call your physician's office the day before your surgery. - If your surgery is scheduled for Saturday, call the Saturday before. Your surgeon s hide mill worker will tell you what time to call the office. - If you have not reached the departmental hide mill worker by 5 P.M., call [phone] after 5 P.M. the day before your surgery. Please be aware that emergency situations arise, which may delay or change your surgical time. If this happens, we will notify you as soon as possible and regret any inconvenience. If you already have an Advance Directive, please fax a copy to [phone] or email to for it to be added to your chart. If you do not have an Advance Directive, you can find the appropriate form and more information at [email or web address]. We recommend that you complete the Advance Directive form found on the website and bring it with you the day of your surgery. It can be witnessed and scanned into your chart that day. Dwain Mcintosh APRN.KEYONNA documented in this encounter [facility] 08-29-2023 History and physical note HISTORY AND PHYSICAL EXAMINATION SERVICE DATE: 08/29/2023 SERVICE TIME: 7:41 AM PRIMARY CARE PHYSICIAN: Merline Fuller MD REASON FOR VISIT: Ronnie Abebe is a 73 year old male who is scheduled for RIGHT ROBOTIC ASSISTED TOTAL KNEE ARTHROPLASTY on 09/04/2023 at [facility] at the request of Dr. Shaji Bishop for consultation. My final recommendation will be communicated back to the requesting physician by way of shared medical record or letter. The patient has the following: ACTIVE PROBLEM LIST History of Prostate Cancer Hypertension Hyperlipidemia Gerd (Gastroesophageal Reflux Disease) Arthritis Primary Osteoarthritis of Left Knee Tricuspid Regurgitation Pulmonary Hypertension (Hcc) Dilation of Aorta (Hcc) Subjective CHIEF COMPLAINT: Pre-op examination; primary osteoarthritis of right knee HPI: Patient is a 73 year old male presenting to [facility]; scheduled for ROBOTIC ASSISTED TOTAL KNEE ARTHROPLASTY. Patient has c/o primary osteoarthritis of right knee. He has associated right knee pain. Symptoms started several years ago. Pain is currently a 5/10, described as aching. The above surgery was recommended; patient has elected to proceed. PAST MEDICAL HISTORY Diagnosis Date Dilation of aorta (HCC) History of prostate cancer HTN (hypertension) Hyperlipidemia Pulmonary hypertension (HCC) Tricuspid regurgitation PAST SURGICAL HISTORY Procedure Laterality Date OTHER SURGICAL HISTORY (PLEASE SPECIFY) HX 2012 robotic prostatectomy TOTAL KNEE REPLACEMENT Left FAMILY HISTORY Problem Relation Age of Onset other (Mesothelioma [Other]) Mother other (Lung Cancer [Other]) Father Anesthesia Problems No Family History SOCIAL HISTORY: Social History Tobacco Use Smoking status: Former Years: 2 Types: Cigarettes Quit date: 1982 Years since quittin.8 Passive exposure: Never Smokeless tobacco: Never Substance Use Topics Alcohol use: Yes Alcohol/week: 9.1 standard drinks of alcohol Types: 7 Mixed Drinks per week Comment: 1 drink of vodka daily per pt 08/29/2023 Drug use: No MEDICATIONS: Prior to Admission medications as of 08/29/23 6287 Medication Sig Last Dose Taking amLODIPine (NORVASC) 10 mg tablet Take 10 mg by mouth once daily. Taking Yes atorvastatin (LIPITOR) 40 mg tablet Take 40 mg by mouth. Taking Yes lisinopril (ZESTRIL) 40 mg tablet Take 40 mg by mouth. Taking Yes atenolol (TENORMIN) 50 mg tablet Take 1 tablet by mouth once daily. Unknown Dosage. Taking Yes FAMOTIDINE (PEPCID ORAL) Take 1 tablet by mouth once daily. Unknown Dosage. Taking Yes multivitamin ORAL tablet Take 1 tablet by mouth once daily. Taking Yes Medication Comments documented by Audra Carl on 11/22/2011 at 0950. The patient is taking Toprol but unsure of the dose. Audra Carl Ma CURRENT ALLERGIES: ALLERGIES No Known Allergies COVID VACCINATION STATUS: Not vaccinated REVIEW OF SYSTEMS: PAIN ASSESSMENT: Pain Pain Level: 5 Pain Location: Knee-Right Description: Aching Duration Units: Years Frequency: Intermittent Intervention/Comfort measure: Declined General: No weight loss, malaise or fevers. Neuro: Negative for seizures, strokes. Respiratory: No history of current cough or dyspnea, or pneumonia in the past 6 weeks. No history of respiratory/pulmonary symptoms or problems. Cardiovascular: + HTN, HLD, Tricuspid regurgitation, Pulmonary HTN, Dilated aorta. Negative for DVT/PE, PA, Cardiac surgery or stents. Denies current chest pain, palpitations, fluttering. GI: + GERD. Negative for Nausea, Vomiting, Abdominal pain, Liver disease, IBS : No history of dysuria, frequency or incontinence,, stones or chronic kidney disease Endocrine: No history of diabetes. Has not taken steroids within the past 30 days. No history of endocrinological symptoms or problems. Hematology: No history of bleeding or clotting disorder. Pt is not taking anti-coagulation or platelet medications. No history of hematological symptoms or problems. Oncology: Hx of prostate cancer. Psych: No history of psychiatric symptoms or problems. Musculoskeletal: See HPI Skin: Negative for lesions, rash and itching. Objective PHYSICAL EXAM: VITALS: BP 139/85 Pulse 64 Temp (Src) 97.9 (Oral) Resp 18 Ht 6' 1 (1.85m) Wt 212 lb 6.4 oz (96.3kg) SpO2 100% BMI 28.03 kg/(m^2). General: Alert and oriented, No acute distress. Body mass index is 28.02 kg/m . Skin: Normal color, no rash, no lesions. HEENT: EOM, pupils equal, round and reactive. Cardiovascular: Normal S1 & S2. Pulse regular. Lungs: Normal breath sounds, no wheezes or crackles. Extremities: Joint tenderness. Neurological: Normal cognition and motor skills. Pulses: Carotid and radial pulses normal +2. Diagnostic tests reviewed for today's visit: Lab Value Units Date High Low HB 14.1 g/dL 04/29/2023 17.0 13.0 HCT 44.8 % 04/29/2023 51.0 39.0 WBC 9.23 k/uL 04/29/2023 11.00 3.70 PLT 272 k/uL 04/29/2023 400 150 NA 137 mmol/L 04/29/2023 144 136 K 5.2 mmol/L 04/29/2023 5.1 3.7 GLUC 84 mg/dL 04/29/2023 99 74 BUN 23 mg/dL 04/29/2023 24 9 CREAT 1.05 mg/dL 04/29/2023 1.22 0.73 PTSEC No results within date range. INR No results within date range. APTT No results within date range. ALT 23 U/L 04/29/2023 54 10 AST 24 U/L 04/29/2023 40 14 TBILI 0.6 mg/dL 04/29/2023 1.3 0.2 TSH No results within date range. Lab Value Units Date High Low HCGQT No results within date range. UHCG No results within date range. HCG, BODY* No results within date range. Lab Value Units Date High Low ABORHD No results within date range. ABSCREEN No results within date range. No results found for: HBA1C LABS PENDING ECG 08/29/23 Pending Echo 04/30/23 CONCLUSIONS: - Exam indication: Pre Op Knee Surgery - The left ventricle is normal in size. There is mild left ventricular hypertrophy. Left ventricular systolic function is normal. EF = 60 5% (2D biplane) - The right ventricle is normal in size. Right ventricular systolic function is normal. - The left atrial cavity is mildly dilated. - The right atrial cavity is dilated. - The visualized aorta is borderline dilated with a maximal dimension of 3.9 cm. - There is moderate (2+) tricuspid valve regurgitation. - The patient has not had a prior CC echocardiographic exam for comparison. Assessment/Plan Hypertension Stable on Amlodipine 10 mg, Atenolol 50 mg, and Lisinopril 40 mg daily. BP today 139/85. Hyperlipidemia Stable on Atorvastatin 40 mg daily. Tricuspid regurgitation Echo 04/30/23 showed - There is moderate (2+) tricuspid valve regurgitation. There is no thickening. DARCIE(PA) is 29 mm Pulmonary hypertension (HCC) Echo 04/30/23 showed - Estimated right ventricular systolic pressure is 42 mmHg consistent with mild pulmonary hypertension. Estimated right atrial pressure is 3 mmHg based on IVC assessment. Dilation of aorta (HCC) Echo 04/30/23 showed - The visualized aorta is borderline dilated with a maximal dimension of 3.9 cm. GERD (gastroesophageal reflux disease) Stable on Famotidine daily. History of prostate cancer Hx of prostate cancer, s/p prostatectomy. METS: Climb a flight of stairs or walk up a hill (5.50 METs) Patient denies any chest pain or undue shortness of breath with the above physical activity. ASA Class: 3 ANESTHESIA FINDINGS: Intubation History: No history of difficult intubation Significant Anesthesia Considerations: None. Patient denies post-op nausea/vomiting, slow emergence, life-threatening reactions to anesthesia. Airway Exam: General: Normal appearance. Body mass index is 28.02 kg/m . Mallampati Score is CLASS II ULBT: Class I - Lower incisors can bite the upper lip above the edis line Neck: Normal appearance and function, Distance from hyoid to mentum during neck extension is at least 3 finger breaths Mouth: Normal tongue size and Mouth opening greater than 2 finger breaths Dentition: Partial (upper, removable). Airway History: No abnormal airway history 08/27/2023 Sleep Apnea Probability Snores loudly: No Tired, fatigued or sleepy in daytime: No Stops breathing or choking/gasping during sleep: No High blood pressure: Yes Sleep Apnea Probability Score: 56 (Recommend sleep study) Sleep Apnea Probability Score 08/27/2023 Sleep Apnea Screen V2 56 (Recommend sleep study) PLAN This patient is optimally prepared for surgery pending LABS. CONSULTS: Patient does not require consults for optimization at this time. The Following Tests/Procedures Have Been Initiated: Orders Placed This Encounter CBC with Differential Standing Status: Future Standing Expiration Date: 11/27/2023 BMP Standing Status: Future Standing Expiration Date: 11/27/2023 IRON + TIBC Standing Status: Future Standing Expiration Date: 11/27/2023 FERRITIN BLD Standing Status: Future Standing Expiration Date: 11/27/2023 STAPH AUREUS PCR Type and Screen, 30 day Standing Status: Future Standing Expiration Date: 11/27/2023 Planned Anesthetic: Per anesthesia choice Instructions Given to Patient: Instructions located in the after visit summary. Patient given verbal and written preop instructions and voices comprehension and compliance. SIGNATURE: Dwain Mcintosh APRN.CNP PATIENT NAME: Ronnie Abebe DATE: August 29, 2023 TIME: 8:23 AM documented in this encounter [facility] 08-21-2023 Miscellaneous Notes ORTHOPAEDIC COORDINATION OF CARE Pre-Op Assessment Discharge Disposition (Planned): Home with Home Health Discharge Transportation: Car PRIMARY CARE PHYSICIAN: Merline Fuller MD OR Surgery Date: 09/04/2023 TCI Appointment: 09/04/2023 Joint: Jointtype: Knee Side: right Health Insurance: Medicare or MEDICARE RAILROAD PB ONLY Primary Contact: Extended Emergency Contact Information Primary Emergency Contact: MisMichelleIsabel Mobile Relation: Spouse Have you had joint replacement surgery before?: Yes: Left knee Date: April of 2023 Social: Pre-Hospital Baseline Mental Status: Alert & Oriented Informant: Self Living Arrangement: Home Who able to assist you at home once you discharge? Spouse Are they available for at least 2 weeks? Yes Stairs: One story home No stairs to enter home Bedroom Location: First Bathroom Location: First Do you have problems that affect your ability to perform normal activities of daily living such as bathing, dressing, or toileting yourself? No = 0 What is your current functional status?: Perform ADLs independently Are you able to afford your medications/Food? Yes Social Determinants of Health Tobacco Use: Low Risk (04/29/2023) Patient History Smoking Tobacco Use: Never Smokeless Tobacco Use: Never Passive Exposure: Never Alcohol Use: Not At Risk (08/21/2023) AUDIT-C Frequency of Alcohol Consumption: 4 or more times a week Average Number of Drinks: 1 or 2 Frequency of Binge Drinking: Never Financial Resource Strain: Low Risk (08/21/2023) Overall Financial Resource Strain (CARDIA) Difficulty of Paying Living Expenses: Not very hard Food Insecurity: No Food Insecurity (08/21/2023) Hunger Vital Sign Worried About Running Out of Food in the Last Year: Never true Ran Out of Food in the Last Year: Never true Transportation Needs: No Transportation Needs (08/21/2023) PRAPARE - Transportation Lack of Transportation (Medical): No Lack of Transportation (Non-Medical): No Physical Activity: Sufficiently Active (08/21/2023) Exercise Vital Sign Days of Exercise per Week: 3 days Minutes of Exercise per Session: 150+ min Stress: No Stress Concern Present (08/21/2023) [employer] [employer] - Occupational Stress Questionnaire Feeling of Stress : Only a little Social Connections: Socially Integrated (08/21/2023) Social Connection and Isolation Panel [NHANES] Frequency of Communication with Friends and Family: More than three times a week Frequency of Social Gatherings with Friends and Family: Once a week Attends [employer] Services: 1 to 4 times per year Active Member of Clubs or Organizations: Yes Attends Club or Organization Meetings: More than 4 times per year Marital Status: Intimate Partner Violence: Not At Risk (08/21/2023) Humiliation, Afraid, Rape, and Kick questionnaire Fear of Current or Ex-Partner: No Emotionally Abused: No Physically Abused: No Sexually Abused: No Depression: Not at risk (08/21/2023) PHQ-2 PHQ-2 Score: 0 Housing Stability: Low Risk (08/21/2023) Housing Stability Vital Sign Unable to Pay for Housing in the Last Year: No Number of Places Lived in the Last Year: 1 Unstable Housing in the Last Year: No Utilities: Not At Risk (08/21/2023) [facility] Utilities Threatened with loss of utilities: No Area Deprivation Index: Medium Risk (04/29/2023) Area Deprivation Index National Score (1-100), lower number is lower risk: 73 State Score (1-10), lower number is lower risk: 6 Data from: https://www.neighborhoodatlas.[facility]/. Last address used for calculation: [address] [place] [address] [address] Equipment: Do you currently use any equipment at home for your medical condition or to help you get around? None Patient has a walker, a cane and a shower chair for after surgery Active Services/Needs: None Transportation: Do you have reliable transportation to and from surgery/appointments?: Yes Who will provide discharge transportation: Spouse Will your ride be available for 1200 discharge time? Yes Office Visit Follow Up Did you receive the antiseptic wipes from your surgeon s office? Yes Did you receive a prescription for an assistive device (walker or crutches) from your surgeon s office and fill it or do you already have one at home? Yes Did you attend a joint education class/Watched video? Did you read the education book provided to you? Yes Have you let your PCP know you are having a joint replacement surgery? Yes If you are currently being seen by pain management, are they aware you are having a joint replacement surgery? N/A Have you informed any specialty care providers of your upcoming joint replacement surgery? N/A Have you made arrangements for your pets? Yes Is your house ready for your recovery? Yes FREEDOM OF CHOICE: Level of Care Discussed: Home Care Provider List: Home Care Provider list within the patient's requested geographic area offered to the patient/family: Yes - Within 25 miles of [address] [place] [address] Total Joint Arthroplasty (TJA) Surgical Risk Procedure: Primary total Knee replacement Date assessed: risk assessed on 04/29/2023 TJA Risk 04/29/2023 Procedure Primary total Knee replacement Estimated Length of Stay (# of days) 1 Chance of NOT Returning Home at Discharge 3.85 % 30 Day Chance of Readmission 3.06 % Patient lives outside of [facility] service area. Patient stated [facility] is agency of choice for [facility] services. Plan for spouse to provide D/C transport home following surgery. Patient is aware of the possibility of same day D/C at this time and is in agreement SIGNATURE: JOVANNI Spence DATE: August 21, 2023 TIME: 11:34 AM documented in this encounter [facility] 06-07-2023 Note HNO ID: [id number] Author: Luma Garcia PA-C Service: ? Author Type: Physician Typewriter Assembly [employer] Inspector Type: Progress Notes Filed: 06/07/2023 12:30 PM Note Text: Ortho Knee Follow Up Note Narrative Referring Provider: No referring provider defined for this encounter. PCP: Merline Fuller MD IMPRESSION/PLAN: 73 year old s/p Left 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 completed on 05/07/2023. Recent Surgeries this specialty 05/07/2023 (4w, 3d) ROBOTIC ASSISTED TOTAL KNEE ARTHROPLASTY; COMPUTER ASSIST MUSCULOSKETAL SURG NAVIGATION ORTHO PROCED W/IMAGE GUIDANCE BASED ON CT/MRI IMAGES (Left; Left) Shaji Bishop MD; Malcom Azul MD; Blanco Meyer MD - Posted PAIN EVALUATION 06/02/2023 1821 Pain Level: 3 Pain Location: Knee-Left Description: Aching;Throbbing IMPRESSION: Excellent early outcome Incision well healed PLAN: Continue current conservative treatment. May progress WBAT Order for outpatient PT. Discussed Right TKA with Dr. Bishop 09/04/23 Patient Reassurance: Patient reassured and supported. All questions answered. Follow up 3 months No X-Rays Needed Ronnie Abebe presents today for a a routine 1st post-op visit ACTIVE PROBLEM LIST Malignant Neoplasm of Prostate (Hcc) Hypertension Hyperlipidemia Gerd (Gastroesophageal Reflux Disease) Arthritis Primary Osteoarthritis of Left Knee Status post op: BMI: There is no height or weight on file to calculate BMI. Post-operative recovery was complicated by uneventful/none. Readmission(s) since surgery (90 days post)? No ED Visits AND Hospitalizations - Last 180 days 05/07/23 Shaji Bishop MD, [id number] Primary osteoarthritis of left knee, Admission (Discharged) Patient rates their condition as improving. Does the patient still experience pain? see MIDAS Form Post Op discharge patient location: in home. Functional Assessment is as follows: is ready to begin outpatient PT. Functional difficulties: None. Pain Medication: Non-narcotic Current Opioids Analgesic Opioid Agonists Start End oxyCODONE IR (ROXICODONE) 5 mg immediate release tablet 05/14/2023 Sig: Take one to two tablets by mouth every four hours as needed for pain Do not start before May 14, 2023. Earliest Fill Date: 05/14/2023 Currently Ambulating with: no ambulation aides EXAM: POST OP KNEE Left Post-Operative Knee Ambulates with a: uses: a cane. SKIN: Appropriate postop appearance and No evidence of erythema, warmth, discharge or drainage. Range of motion is 0 degrees in extension and 120 degrees of flexion. Extension La degrees Pain with ROM:No There is Slight effusion. Mal-alignment: No Tender to the palpation of Medial femoral condyle Neurovascular Status: Sensation Intact, Moves foot and ankle up AND down, and 2+ dorsalis pedis Stability:Anterior/Posterior- Yes, stable and Varus/Valgus- Yes, stable Quad strength: improving Imagin. Implants are well aligned. Implants are well fixed. There is no evidence of loosening. Provider: Luma Garcia PA-C Completed by: Luma Garcia PA-C [facility] 06-07-2023 History of Present illness Narrative Images from the original note were not included. Ortho Knee Follow Up Note Narrative Referring Provider: No referring provider defined for this encounter. PCP: Merline Fuller MD IMPRESSION/PLAN: 73 year old s/p Left 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 completed on 05/07/2023. Recent Surgeries this specialty 05/07/2023 (4w, 3d) ROBOTIC ASSISTED TOTAL KNEE ARTHROPLASTY; COMPUTER ASSIST MUSCULOSKETAL SURG NAVIGATION ORTHO PROCED W/IMAGE GUIDANCE BASED ON CT/MRI IMAGES (Left; Left) Shaji Bishop MD; Malcom Azul MD; Blanco Meyer MD - Posted PAIN EVALUATION 06/02/2023 1821 Pain Level: 3 Pain Location: Knee-Left Description: Aching;Throbbing IMPRESSION: Excellent early outcome Incision well healed PLAN: Continue current conservative treatment. May progress WBAT Order for outpatient PT. Discussed Right TKA with Dr. Bishop 09/04/23 Patient Reassurance: Patient reassured and supported. All questions answered. Follow up 3 months No X-Rays Needed Ronnie Abebe presents today for a a routine 1st post-op visit ACTIVE PROBLEM LIST Malignant Neoplasm of Prostate (Hcc) Hypertension Hyperlipidemia Gerd (Gastroesophageal Reflux Disease) Arthritis Primary Osteoarthritis of Left Knee Status post op: BMI: There is no height or weight on file to calculate BMI. Post-operative recovery was complicated by uneventful/none. Readmission(s) since surgery (90 days post)? No ED Visits & Hospitalizations - Last 180 days 05/07/23 Shaji Bishop MD, [id number] Primary osteoarthritis of left knee, Admission (Discharged) Patient rates their condition as improving. Does the patient still experience pain? see MIDAS Form Post Op discharge patient location: in home. Functional Assessment is as follows: is ready to begin outpatient PT. Functional difficulties: None. Pain Medication: Non-narcotic Current Opioids Analgesic Opioid Agonists Start End oxyCODONE IR (ROXICODONE) 5 mg immediate release tablet 05/14/2023 Sig: Take one to two tablets by mouth every four hours as needed for pain Do not start before May 14, 2023. Earliest Fill Date: 05/14/2023 Currently Ambulating with: no ambulation aides EXAM: POST OP KNEE Left Post-Operative Knee Ambulates with a: uses: a cane. SKIN: Appropriate postop appearance and No evidence of erythema, warmth, discharge or drainage. Range of motion is 0 degrees in extension and 120 degrees of flexion. Extension La degrees Pain with ROM:No There is Slight effusion. Mal-alignment: No Tender to the palpation of Medial femoral condyle Neurovascular Status: Sensation Intact, Moves foot and ankle up & down, and 2+ dorsalis pedis Stability:Anterior/Posterior- Yes, stable and Varus/Valgus- Yes, stable Quad strength: improving Imagin. Implants are well aligned. Implants are well fixed. There is no evidence of loosening. Provider: Luma Garcia PA-C Completed by: Luma Garcia PA-C documented in this encounter [facility] 06-07-2023 History of Present illness Narrative Radiology Service Progress Note PATIENT NAME: Ronnie Abebe DATE OF SERVICE: June 07, 2023 TIME: 9:31 AM PATIENT IDENTITY VERIFICATION COMPLETED USING TWO (2) IDENTIFIERS: Name and Date of confirmed by patient verbally. FALL SCREENING: Has the patient had 2 falls in the last year or 1 fall with injury or currently using an Ambulatory Assistive Device (Walker, Cane, Wheelchair, Crutches, etc.)? No PATIENT GENDER DATA: Male PATIENT RELEVANT IMPLANT DATA REVIEWED: Not Applicable RADIOLOGY DEPARTMENT: General X-ray: Exam(s) Completed: Lower Extremity X-Ray(s): Knee, AP / LAT / Tunnel Left PERIPHERAL IV DATA: Not applicable SIGNED BY: RT Damien(Alba) June 07, 2023 9:31 AM documented in this encounter [facility] 06-07-2023 Note HNO ID: [id number] Author: Megan Nova RT(R) Service: ? Author Type: Technologist Type: Progress Notes Filed: 06/07/2023 9:32 AM Note Text: Radiology Service Progress Note PATIENT NAME: Ronnie Abebe DATE OF SERVICE: June 07, 2023 TIME: 9:31 AM PATIENT IDENTITY VERIFICATION COMPLETED USING TWO (2) IDENTIFIERS: Name and Date of confirmed by patient verbally. FALL SCREENING: Has the patient had 2 falls in the last year or 1 fall with injury or currently using an Ambulatory Assistive Device (Walker, Cane, Wheelchair, Crutches, etc.)? No PATIENT GENDER DATA: Male PATIENT RELEVANT IMPLANT DATA REVIEWED: Not Applicable RADIOLOGY DEPARTMENT: General X-ray: Exam(s) Completed: Lower Extremity X-Ray(s): Knee, AP / LAT / Tunnel Left PERIPHERAL IV DATA: Not applicable SIGNED BY: RT Damien(Alba) June 07, 2023 9:31 AM [facility] 05-09-2023 Miscellaneous Notes Patient has been identified by name and date of : Yes, Provider Nicole Meeks RN Date 05/09/2023 Time 12:45pm Surgeon Dr. Bishop Surgery Left 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 Date of Surgery 05/07/2023 Date of Discharge 05/07/2023 Support person at home yes Weight Bearing status: PWB Activity Up with Walker, Home Health Pain Level on a pain scale 0-10 8/10 Current pain regimen Oxycodone two tablets every four hours and Tylenol as ordered and meloxicam as ordered. Educated on taking two Oxy for severe pain, one for moderate and strethcing the time between doses if mild. Icing and Elevating Educated on how to properly ice and elevate and recommended doing so for 20-30 minutes at least 6-8 times per day Constipation Reviewed how to take laxative, drink plenty of fluids, add fiber, prunes and walking hourly will help Blood Thinner Aspirin 81mg twice daily, patient is taking Incision Educated on incision care Dressings Clean, Dry, Intact Patient concerns None. Provided office number to call for any refill needs, or questions Follow up appointments 06/07/2023 Patient aware Nicole Meeks RN documented in this encounter [facility] 05-07-2023 Note HNO ID: [id number] Author: Sharon Mensah RN Service: Care Management Author Type: Registered Nurse Type: Care Mgt Progress Note Filed: 05/08/2023 11:59 AM Note Text: CARE MANAGEMENT UTILIZATION REVIEW COMMITTEE PROVIDER LIABLE (Admission Status Discrepancy Review) Admission Date: 05/07/2023 Patient's Initial Order is: Inpatient Date Received: May 08, 2023 Date Reviewed: May 08, 2023 Under the authority of the Utilization Management Plan, the Physician Advisor, Dr. Charlene Pepe, has reviewed the medical record of the above patient. The following recommendation has been made by the Physician Advisor, based upon the current available medical information as of the date of this determination. The patient is appropriate for: Observation Rationale for this decision: Lack of medical necessity for inpatient admission and less than 2 midnight stay SIGNATURE: Sharon Mensah RN PATIENT NAME: Ronnie Abebe DATE: May 08, 2023 TIME: 11:59 AM Disclaimer: The information in this determination is to be used for utilization management purposes only. The information and recommendation is made pursuant to Medicare Hospital Conditions of Participation (442 CFR Part 482) and is neither a judgment nor an assessment with regard to the appropriateness or quality of the clinical care. Nothing in this document may be used to limit clinical services provided to the above named patient. This form should be used as one part of the process utilized to ensure compliance with [facility] policy regarding Inpatient Admission and Observation Services. The definitions of Inpatient and Observation used in making the determination above are those provided in Medicare Benefit Policy Manual Chapter 1, Section 1 and 10, Chapter 6, Section 20, and the Medicare Claims Processing Manual Chapter 1, Section 50.3 and Chapter 4, Section 290. This recommendation should be considered as only one factor in determining the patient's final level of service along with other pertinent documentation such as the treating physician's order as documented evidence of concurrence. [facility] 05-07-2023 Note HNO ID: [id number] Author: Ronnie Rosa RN Service: Care Management Author Type: Registered Nurse Type: Care Mgt Progress Note Filed: 05/07/2023 4:32 PM Note Text: CARE MANAGEMENT DISCHARGE NOTE SERVICE DATE: May 07, 2023 SERVICE TIME: 4:31 PM Admission Date: 05/07/2023 LOS: 0 days Discharge Arrangement Discharge Arrangement: Home with Home Health Services Arranged Medical Services: Skilled Home Health Care Type: Home Health Agency, Physical Therapy Caregiver Assessment Caregiver is ready, willing and able to meet the patient's needs as recommended by the inter-professional team: Yes Name of Caregiver: [facility] Transportation Arrangements Transportation Arrangements: Car Destination: Home Handoff Communication: Handoff to: Primary Care Physician Primary Care Physician Name/Phone: Merline Fuller MD [phone] Additional Information: Discharge Information Row Name Admission (Current) from 05/07/2023 in [facility] M[facility] Home Health Care Agency [facility] Phone# Patient d/c ready to home today with [facility] services provided by [facility] with confirmed SOC date within 24-48 hours of D/C.. Patient to be transported home by family via private auto. Patient aware of plan and has been provided with [facility] contact information via AVS. Bedside RN aware of plan. DC instructions sent to [facility] via [facility]. SIGNATURE: Ronnie Rosa RN PATIENT NAME: Ronnie Abebe DATE: May 07, 2023 TIME: 4:31 PM CONTACT #: [phone] [facility] 05-07-2023 Note HNO ID: [id number] Author: Ronnie Rosa RN Service: Care Management Author Type: Registered Nurse Type: Care Mgt Initial Assessment Filed: 05/07/2023 4:31 PM Note Text: CARE MANAGEMENT: ASSESSMENT AND DISCHARGE PLAN SERVICE DATE: May 07, 2023 SERVICE TIME: 4:29 PM PCP: Merline Fuller MD Primary Contact: Extended Emergency Contact Information Primary Emergency Contact: Isabel Abebe Mobile Relation: Spouse Admission Status: Inpatient Insurance Provider: MEDICARE A AND B [place] of Choice Explained: [place] of Choice Given: Yes Level of Care Discussed: Home Care Are you interested in bedside delivery of your medications? No Caregiver Assessment: Caregiver is ready, willing and able to meet the patient's needs as recommended by the inter-professional team: Yes Name of Caregiver: [facility] Transport at Discharge: Transportation Arrangements: Car Destination: Home Needs Prior to Discharge: Needs Prior to Discharge: None;Ready for Discharge Post-Acute Discharge Plan: Plan for D/C home today with home PT. [facility] accepting. Patient and RN aware. SIGNATURE: Ronnie Rosa RN PATIENT NAME: Ronnie Abebe DATE: May 07, 2023 TIME: 4:29 PM CONTACT #: [phone] [facility] 05-07-2023 Note HNO ID: [id number] Author: Arleen Jacobs APRN.TRAUMA THERAPIST Service: ? Author Type: Nurse Interventional Radiology Tech Type: Anesthesia Procedure Notes Filed: 05/07/2023 9:45 AM Note Text: ANESTHESIOLOGY PROCEDURE NOTE Spinal Block General Information Procedure Start Time/Medication Administration: 05/07/2023 8:39 AM Patient location during procedure: OR Timeout Performed Pre-procedure: timeout performed Patient identity confirmed: arm band and patient Reason for Block: primary surgical anesthetic Staffing TRAUMA THERAPIST: Arleen Jacobs APRN.TRAUMA THERAPIST Performed by: TRAUMA THERAPIST Preparation Sterility Preparation: hand hygiene performed prior to procedure, sterile gloves, drapes, and procedure tray, surgical cap used, mask used, sterile drape used during line insertion, skin prep agent completely dried prior to procedure Sterility Technique Not Completely Performed Due to Extreme Emergency: No Site Prep: Duraprep Procedure Details Patient Position: sitting Ultrasound Guided: No Monitoring: Pulse Ox, EKG and NIBP Approach: Midline Location: L3-4 Injection Technique: single-shot Needle Needle Type: pencil-tip Needle Gauge: 25 G Needle Length: 3.5 in Assessment Sensory Level: T6 Events: tolerated well Medications Administered bupivacaine (PF) 0.5 % (5 mg/mL) injection - INTRATHECAL 15 mg - 05/07/2023 8:39:00 AM SIGNATURE: Arleen Jacobs APRN.CRNA PATIENT NAME: Ronnie Abebe DATE: May 07, 2023 TIME: 9:45 AM CSN: [id number] [facility] 05-07-2023 Note HNO ID: [id number] Author: Michelet Hsu MD Service: ? Author Type: Resident Type: Anesthesia Procedure Notes Filed: 05/07/2023 7:07 AM Note Text: Attestation signed by Elizabeth King MD at 05/07/2023 2:44 PM I was present throughout the entire procedure Patient tolerated procedure without any complications. Elizabeth King MD [facility] Staff Pager: [phone] ANESTHESIOLOGY PROCEDURE NOTE Peripheral Nerve Block General Information Procedure Start Time/Medication Administration: 05/07/2023 6:47 AM Procedure End time: 05/07/2023 6:57 AM Patient location during procedure: pre-op Timeout Performed Pre-procedure: timeout performed Consent Obtained: Yes Patient identity confirmed: arm band and patient Reason for block: post-op pain management/at surgeon's request Staffing Anesthesiologist: Elizabeth King MD Fellow: Tez Rendon MD Resident: Michelet Hsu MD Performed by: resident, anesthesiologist and fellow Preparation Sterility Preparation: hand hygiene performed prior to procedure, sterile gloves, drapes, and procedure tray, surgical cap used, mask used, sterile drape used during line insertion, skin prep agent completely dried prior to procedure Sterility Technique Not Completely Performed Due to Extreme Emergency: No Site Prep: Chloraprep Pre-Procedure Neuro Exam Location: LLE Procedure Details Patient Position: supine Monitoring: Pulse OX, EKG and NIBP Block Type Lower Extremity: distal femoral (adductor canal) Approach: anterior Laterality: left Injection Technique: single-shot Ultrasound Guided: Yes Image in Chart: yes Moderate Sedation: Yes Local Infiltration: Yes Needle Needle Type: echogenic Needle Gauge: 20 G Needle Length: 10 cm Needle Localization: ultrasound and anatomical landmarks Assessment Injection assessment: negative aspiration, no paresthesia on injection, incremental injection and local visualized surrounding nerve on ultrasound Post-Procedure Neuro Exam Expected Regional Anesthesia: Yes Medications Administered ropivacaine (PF) 5 mg/mL (0.5 %) injection (NAROPIN) - peripheral nerve block 20 mL - 05/07/2023 6:47:00 AM Comments Patient is confirmed by two identifiers, the Risks, benefits and alternatives of the regional anesthesia procedure were explained and confirmed with the patient who agrees to proceed. Standard ASA monitors were applied according to the procedure protocol. Vital signs were stable throughout the procedure, and the patient was communicating. No pain on injection and the procedure was well tolerated. SIGNATURE: Michelet Hsu MD PATIENT NAME: Ronnie Abebe DATE: May 07, 2023 TIME: 7:05 AM CSN: [id number] [facility] 05-06-2023 Miscellaneous Notes Spoke with patient and informed them of arrival time of 5:00am for surgery tomorrow with Dr. Bishop. Requested patient to report to Desk J-1-9 at that time. Reminded patient to not eat or drink anything after midnight and if they are supposed to take a medication in the morning to do so with a sip of water. Patient states an understanding. documented in this encounter [facility] 05-01-2023 Note HNO ID: [id number] Author: Dimple Dan RN Service: ? Author Type: Registered Nurse Type: Progress Notes Filed: 05/01/2023 1:32 PM Note Text: Patient referred to Blood Management for pre-surgical optimization. Hgb 14.1 which exceeds Blood Management guidelines for intervention. [facility] 05-01-2023 History of Present illness Narrative Patient referred to Blood Management for pre-surgical optimization. Hgb 14.1 which exceeds Blood Management guidelines for intervention. documented in this encounter [facility] 04-29-2023 Note HNO ID: [id number] Author: Valeria Farmer MD Service: ? Author Type: Anesthesiologist Type: Progress Notes Filed: 04/29/2023 2:39 PM Note Text: Attending Note I evaluated the patient and personally participated in the murguia components. I agree with the resident's findings and plan as documented and have discussed the case and management of the patient's care with the resident. Signature: Valeria Farmer MD Date: 04/29/2023 Time: 2:39 PM [facility] 04-29-2023 History of Present illness Narrative Attending Note I evaluated the patient and personally participated in the murguia components. I agree with the resident's findings and plan as documented and have discussed the case and management of the patient's care with the resident. Signature: Valeria Farmer MD Date: 04/29/2023 Time: 2:39 PM documented in this encounter [facility] 04-29-2023 History of Present illness Narrative Radiology Service Progress Note PATIENT NAME: Ronnie Abebe DATE OF SERVICE: April 29, 2023 TIME: 2:07 PM PATIENT IDENTITY VERIFICATION COMPLETED USING TWO (2) IDENTIFIERS: Name and Date of confirmed by patient verbally and Name and Date of confirmed by identification band. FALL SCREENING: Has the patient had 2 falls in the last year or 1 fall with injury or currently using an Ambulatory Assistive Device (Walker, Cane, Wheelchair, Crutches, etc.)? Yes, Patient High Risk for Falls What interventions were put in place to prevent falls during this visit? Increased Observations by Caregivers PATIENT GENDER DATA: Male PATIENT RELEVANT IMPLANT DATA REVIEWED: Yes RADIOLOGY DEPARTMENT: CT; Exam(s) Completed: Lower extremity PERIPHERAL IV DATA: Not applicable SIGNED BY: RT Yeimi(Alba) April 29, 2023 2:07 PM documented in this encounter [facility] 04-29-2023 Note HNO ID: [id number] Author: RT Jalloh (R) Service: Radiology Author Type: Technologist Type: Progress Notes Filed: 04/29/2023 2:09 PM Note Text: Radiology Service Progress Note PATIENT NAME: Ronnie Abebe DATE OF SERVICE: April 29, 2023 TIME: 2:07 PM PATIENT IDENTITY VERIFICATION COMPLETED USING TWO (2) IDENTIFIERS: Name and Date of confirmed by patient verbally and Name and Date of confirmed by identification band. FALL SCREENING: Has the patient had 2 falls in the last year or 1 fall with injury or currently using an Ambulatory Assistive Device (Walker, Cane, Wheelchair, Crutches, etc.)? Yes, Patient High Risk for Falls What interventions were put in place to prevent falls during this visit? Increased Observations by Caregivers PATIENT GENDER DATA: Male PATIENT RELEVANT IMPLANT DATA REVIEWED: Yes RADIOLOGY DEPARTMENT: CT; Exam(s) Completed: Lower extremity PERIPHERAL IV DATA: Not applicable SIGNED BY: RT Yeimi(Alba) April 29, 2023 2:07 PM [facility] 04-29-2023 Instructions Ashleigh Serra MD - 04/29/2023 1:17 PM EDT PATIENT PREOPERATIVE INSTRUCTIONS Luma Garcia PA-C has scheduled you for your procedure at this surgery center: [facility] Scheduling Office: [phone] --[address] [place] [address]. Please read below carefully for your personalized instructions. Dietary Restrictions: - No solid food after midnight. - You may have 12 ounces of clear liquids (water, clear juices such as apple juice or gatorade, carbonated beverages, clear tea, black coffee, jello) until 2 hours before scheduled arrival at facility. Medications: Unless instructed differently below, stay on all of your medications until your surgery. Approved medications to take the morning of surgery with a sip of water: atenolol Please hold your lisinopril and Lotrel for 24 hrs prior to your surgery. If you take any medications for erectile dysfunction-Cialis (Tadalafil), Levitra, Staxyn (Vardenafil) Viagra (Sildenenafil please do not take these for 48 hours before surgery. If you start any new medications after today's visit, please contact the surgeon's office. Blood Thinning Medications: - Stop NSAIDS (Ibuprofen, Advil, Aleve, Motrin, Celebrex, Mobic, etc.) 7 days before surgery, as directed by your surgeon. - Stop Vitamin E, ALL multi-vitamins, herbals and dietary supplements 7 days before surgery. - You may take Tylenol (Acetaminophen) or any of your pain medications that do not contain aspirin or NSAIDS as needed. Important Reminders: - Candy, mints, and tobacco products are NOT permitted the morning of surgery. - Hearing aids, dentures and glasses may be worn the morning of surgery. - NO jewelry, body piercings, makeup, hairpins or contacts are to be worn the day of surgery. If you develop symptoms such as a fever, cold, or flu, or have other changes to your health within TWO DAYS of scheduled surgery or the morning of surgery, please contact the surgery center above. Personal Belongings: -Please have photo ID and insurance cards. -If you do not have a copy of advance directives on file with us, please bring a copy with you on the day of surgery. - Leave ALL valuables and money at home or with family members. For Outpatient Procedures: - YOU MUST HAVE A RESPONSIBLE BOMB SQUAD COMMANDER TAKE YOU HOME. A SIGNAL SYSTEM TESTING MAINTAINER OR DEBIT AGENT CANNOT BE MADE A RESPONSIBLE BOMB SQUAD COMMANDER. - We recommend that a responsible person stays with you overnight to take care of you. - You cannot stay in a hotel alone after outpatient surgery. You will not be permitted to have your surgery, if you do not have someone to take care of you. Arrival Time for Surgery: - To obtain your arrival time for surgery, call your physician's office the day before your surgery. - If your surgery is scheduled for Saturday, call the Saturday before. Your surgeon s hide mill worker will tell you what time to call the office. - If you have not reached the departmental hide mill worker by 5 P.M., call [phone] after 5 P.M. the day before your surgery. Please be aware that emergency situations arise, which may delay or change your surgical time. If this happens, we will notify you as soon as possible and regret any inconvenience. If you already have an Advance Directive, please fax a copy to [phone] or email to for it to be added to your chart. If you do not have an Advance Directive, you can find the appropriate form and more information at [email or web address]. We recommend that you complete the Advance Directive form found on the website and bring it with you the day of your surgery. It can be witnessed and scanned into your chart that day. Ashleigh Serra MD documented in this encounter [facility] 04-29-2023 History and physical note HISTORY AND PHYSICAL EXAMINATION SERVICE DATE: 04/29/2023 SERVICE TIME: 1:47 PM PRIMARY CARE PHYSICIAN: Merline Fuller MD REASON FOR VISIT: Ronnie Abebe is a 73 year old male who is scheduled for ROBOTIC ASSISTED TOTAL KNEE ARTHROPLASTY at the request of Dr. Luma Garcia for consultation. My final recommendation will be communicated back to the requesting physician by way of shared medical record or letter. The patient has the following: ACTIVE PROBLEM LIST Malignant Neoplasm of Prostate (Hcc) Hypertension Hyperlipidemia Gerd (Gastroesophageal Reflux Disease) Arthritis Subjective CHIEF COMPLAINT: arthritis of the left knee HPI: Ronnie Abebe is a 73 year old male with PMH HTN, GERD, HLD, prostate cancer s/p robotic prostatectomy 2011 who presents to [facility] today for preop exam. Patient is scheduled for the above procedure on 05/07/23 PAST MEDICAL HISTORY Diagnosis Date HTN (hypertension) Hyperlipidemia Malignant neoplasm of prostate (HCC) PAST SURGICAL HISTORY Procedure Laterality Date NONE OTHER SURGICAL HISTORY (PLEASE SPECIFY) HX 2012 robotic prostatectomy FAMILY HISTORY Problem Relation Age of Onset other (Lung Cancer [Other]) Father other (Mesothelioma [Other]) Mother SOCIAL HISTORY: Social History Tobacco Use Smoking status: Never Passive exposure: Never Smokeless tobacco: Never Substance Use Topics Alcohol use: Yes Comment: 1 drink of vodka daily per pt 04/29/2023 Drug use: No MEDICATIONS: Prior to Admission medications as of 04/29/23 1309 Medication Sig Last Dose Taking atorvastatin (LIPITOR) 40 mg tablet Take 40 mg by mouth. Taking Yes lisinopril (ZESTRIL) 40 mg tablet Take 40 mg by mouth. Taking Yes ATENOLOL ORAL Take 1 tablet by mouth once daily. Unknown Dosage. Taking Yes AMLODIPINE BESYLATE/BENAZEPRIL (LOTREL ORAL) Take 1 tablet by mouth once daily. Unknown Dosage. Taking Yes FAMOTIDINE (PEPCID ORAL) Take 1 tablet by mouth once daily. Unknown Dosage. Taking Yes multivitamin ORAL tablet Take 1 tablet by mouth once daily. Taking Yes Vardenafil HCl (LEVITRA) 20 mg ORAL tablet Take 20 mg by mouth as needed. 30-60 minutes before sexual intercourse. Patient not taking: Reported on 04/29/2023 Not Taking ROSUVASTATIN CALCIUM (CRESTOR ORAL) Take 1 tablet by mouth once daily. Unknown Dosage. Patient not taking: Reported on 04/29/2023 Not Taking Glucosamine Sulfate 500 mg tab Take 1 tablet by mouth once daily. Patient not taking: Reported on 04/29/2023 Not Taking Medication Comments documented by Audra Carl on 11/22/2011 at 0950. The patient is taking Toprol but unsure of the dose. Audra Carl Ma CURRENT ALLERGIES: ALLERGIES No Known Allergies COVID VACCINATION STATUS: Not vaccinated REVIEW OF SYSTEMS: PAIN ASSESSMENT: Pain Pain Level: 5 Pain Location: Knee-Left Description: Burning Duration Units: Months Frequency: Continuous Intervention/Comfort measure: Reposition General: No weight loss, malaise or fevers. Neuro: No history of TIA's, stroke, CRIMINALIST TECHNICIAN tumor, impaired sensorium, hemiplegia, paraplegia or quadraplegia. No neurological symptoms or problems. Respiratory: No history of current cough or dyspnea, or pneumonia in the past 6 weeks. No history of respiratory/pulmonary symptoms or problems. Cardiovascular: +HTN no hx of angina, PA, stent placement GI: No history of GI symptoms or problems. No history of esophageal varices, recent ascites, or ETOH greater than 2 drinks per day. : No history of dysuria, frequency or incontinence,, stones or chronic kidney disease Endocrine: No history of diabetes. Has not taken steroids within the past 30 days. No history of endocrinological symptoms or problems. Hematology: No history of bleeding or clotting disorder. Pt is not taking anti-coagulation or platelet medications. No history of hematological symptoms or problems. Oncology: +hx of prostate cancer s/p prostatectomy no MANAGER BUSINESS INTELLIGENCE Psych: No history of psychiatric symptoms or problems. Musculoskeletal: +L knee arthritis Skin: Negative for lesions, rash and itching. Objective PHYSICAL EXAM: VITALS: BP 126/75 Pulse 61 Temp (Src) 97.8 (Oral) Ht 6' 1 (1.85m) Wt 216 lb (98.0kg) SpO2 99% BMI 28.50 kg/(m^2). General: Alert and oriented, No acute distress, Healthy appearance Skin: Normal color, no rash, no lesions. HEENT: EOM, pupils equal, round and reactive. Cardiovascular: Normal S1 & S2, no rubs, murmurs or gallops. No JVD. Pulse regular. Lungs: Normal breath sounds, no wheezes or crackles. Abdomen: Soft, non-tender, no rigidity. Extremities: No deformity, no edema or tenderness, no joint swelling or clubbing. Neurological: Normal cognition and motor skills. Pulses: radial pulses normal +2. Diagnostic tests reviewed for today's visit: Lab Value Units Date High Low HB No results within date range. HCT No results within date range. WBC No results within date range. PLT No results within date range. NA No results within date range. K No results within date range. GLUC No results within date range. BUN No results within date range. CREAT No results within date range. PTSEC No results within date range. INR No results within date range. APTT No results within date range. ALT No results within date range. AST No results within date range. TBILI No results within date range. TSH No results within date range. Lab Value Units Date High Low HCGQT No results within date range. UHCG No results within date range. HCG, BODY* No results within date range. Lab Value Units Date High Low ABORHD No results within date range. ABSCREEN No results within date range. No results found for: HBA1C EKG 04/29/23: Sinus bradycardia with frequent PVCs in a pattern of bigeminy Labs pending Assessment/Plan GERD (gastroesophageal reflux disease) -on pepcid Hypertension -BP this office visit: 126/75 -on atenolol, lotrel, lisinopril METS: Climb a flight of stairs or walk up a hill (5.50 METs) Patient denies any chest pain or undue shortness of breath with the above physical activity. ASA Class: 2 ANESTHESIA FINDINGS: Intubation History: Hx of GETA in 2011. ETT 8, MAC 4 grade III view Significant Anesthesia Considerations: None Airway Exam: General: Normal appearance Mallampati Score is CLASS II ULBT: Class II - Lower incisors can bite the upper lip below the edis line Neck: Normal appearance and function, Distance from hyoid to mentum during neck extension is at least 3 finger breaths Mouth: Normal tongue size Dentition: left upper partial dentures Airway History: No abnormal airway history STOP BANG Score: Criteria: Snoring Hypertension Age over 50 (73 year old) Male gender Score = 4 PLAN This patient is optimally prepared for surgery pending echocardiogram given EKG with frequent PVCs CONSULTS: Patient does not require consults for optimization at this time. The Following Tests/Procedures Have Been Initiated: Labs/EKG ordered by surgical team Planned Anesthetic: Per anesthesia choice Instructions Given to Patient: Instructions located in the after visit summary. Patient given verbal and written preop instructions and voices comprehension and compliance. SIGNATURE: Ashleigh Serra MD PATIENT NAME: Ronnie Abebe DATE: April 29, 2023 TIME: 12:40 PM documented in this encounter [facility] 04-29-2023 Note HNO ID: [id number] Author: Shaji Bishop MD Service: ? Author Type: Physician Type: Progress Notes Filed: 04/29/2023 11:35 AM Note Text: CONSULT ORTHOPAEDIC: KNEE PRIMARY CARE PHYSICIAN: Merline Fuller MD REFERRING PROVIDER: SELF ASSESSMENT AND PLAN Impression: Left Knee Severe Degenerative Osteoarthritis, Primary and Right Knee Severe Degenerative Osteoarthritis, Primary Scheduled for Robotic Left Total Knee Arthroplasty 05/07/23 Consents completed Patient has been pre-oped today and given the pre-op wipes and information Ronnie Abebe has radiograph and physical exam evidence of degenerative joint disease and wishes to pursue surgery. This patient appears to have sufficient symptoms to warrant surgical intervention and is an appropriate candidate for left Primary Total Knee Arthroplasty as evidenced by six months of unsuccessful non-operative treatment as outlined in the HPI below and progressive symptoms. Progressive Symptoms Include: Pain worsened by weight bearing Pain limiting ability to stay fit and healthy. This patient has the following risk factors: N/A We had a lengthy discussion regarding the risk and benefit of surgery, the alternatives, limitations and personnel involved. These included but were not limited to infection, persistent pain, instability, nerve injury, blood clots, and medical complications. We also discussed the pre-operative course, surgery itself and rehabilitation. Garima-operative blood management and transfusion issues were discussed, and options clearly outlined. The patient has consented to the use of the banked allogenic blood if medically necessary. The patient has elected to schedule surgery at this time or intends to call the office with a surgical date. Shared decision making occurred while obtaining informed consent. The patient will be scheduled for a pre-operative education class at which time they will have their nasal swab completed and will be given CHG cloths along with the verbal and written instructions for their use. Patient has been instructed and has been scheduled or will call to schedule attendence in one of the total joint perioperative classes offered prior to proceeding with TKA. The patient has been ordered: Anemia Screen Albumin Level CT Ronnie Abebe meets the following criteria for CT: Custom cutting guides for presence of osseous deformity CONSULTS: IMPACT/PACE Consult for preoperative clearance. ACTIVE PROBLEM LIST Malignant Neoplasm of Prostate (Hcc) Hypertension Hyperlipidemia Gerd (Gastroesophageal Reflux Disease) Arthritis SUBJECTIVE CHIEF COMPLAINT: Knee Pain HPI: Ronnie Abebe is a 73 year old patient here for evaluation and management of bilateral knee pain. Ronnie Abebe has had progressive problems with the knee(s) multiple times a day over the past 3 year(s) interfering with activities which include participating in family activities, enjoying hobbies, walking, and climbing stairs. The problem began limiting activities 1-6 months ago. Currently the pain in the joint is rated at 4 out of 10 with minimal activity. The pain is intermittent and is located along the inside aspect. The pain is described as aching and stabbing. Relieving factors include over the counter medication. There is no specific incident that brought about this pain. Ronnie Abebe has no additional complaints. FUNCTIONAL STATUS: Totally dependent Total Joint Arthroplasty: Risk Calculator Ronnie Abebe has a 3.85% chance of NOT returning home at discharge for a Primary total Knee replacement. Ronnie's estimated Length of Stay is 1 day (Outpatient candidate). Ronnie's 30 day chance of readmission is 3.06%. Readmission Probability 3.06 % (within 30 days following surgery) Estimated LOS 1 day Discharge Disposition Probability D/C to Home 96.15 % D/C to SNF 3.85 % These calculations are based on the following factors: - 73 years of age - sex is male - BMI of 27.97 kg/m2 - NarxCare score of 90 - 0 hospitalizations in the last 12 months - no history of heart disease - no history of diabetes - no history of COPD - no history of anemia - preoperative ambulation: independent community distances - 4 step(s) to enter home - bed location is on the first floor - bath location is on the first floor - caregiver is consistent - home is not more than 150 miles away - PROMIS-10 Mental Health T score not available - Marital status: PREVIOUS TREATMENTS: Medical Treatments: OTC NSAIDS for 3 Months or Greater ( ), Steroid Injections Left Knee, Steroid Injections Right Knee REVIEW OF SYSTEMS: PAIN ASSESSMENT: See HPI. MUSCULOSKELETAL: See HPI. Risk Factors for Total Joint Arthroplasty (TJA) Obesity Unknown Risk High: BMI > 40 Moderate: BMI 30-40 Normal: BMI < 30 Diabetes normal High: A1C > 8 Moderate: A1C 7-8 Normal: A1C < 7 Smoking normal High (more content not included)... [facility] 02-21-2023 Note OPERATIVE NOTE OPERATION DATE: 02/21/2023 SURGEON: Osmar Noriega M.D. PREOPERATIVE DIAGNOSIS: Nuclear sclerotic cataract right eye. POSTOPERATIVE DIAGNOSIS: Nuclear sclerotic cataract right eye. PROCEDURE NAME: Cataract extraction with intraocular lens placement for the right eye. ANESTHESIA: Topical. ESTIMATED BLOOD LOSS: Zero. COMPLICATIONS: None. PROCEDURE: In the preoperative holding area, once again, the discussion was had with the patient regarding his existing contact lens prescription and his particulars in the way that he sees the world, both for distance, as well as near. The challenge was to determine from the right eye, whether or not he would be placed in a state of near vision or far. He had no recollection of what he was presently doing, and had not seen a local eye care provider for approximately eight years. So, therefore, there was no documentation of what his system was. He inherently demonstrated the nearsightedness in both eyes; however, the right eye was worse than the left eye. It had been the case recently. So, it was felt that it was likely the right eye with the near vision eye. This was further verified by calling his local optical engineering technician prior to surgery and coming to a conclusion of what would be best suited for the patient. This was done; however, the local optical engineering technician once again had not seen the patient for eight years, and so did not have an accurate need for the patient, nor an accurate prescription, and the patient did not have the lopez for his contact lens prescription presently. Once again, with three individuals in collaboration, it was felt the right eye would be left approximately -1 nearsighted and this was what was targeted. The patient was then brought to the operating room in supine position. After proper identification, the right eye was prepped and draped in a sterile ophthalmic fashion. A paracentesis was created at the 11 o'clock position. Approximately 1 mL of unpreserved Xylocaine was injected into the anterior chamber followed by Amvisc Plus. Using a 2.6 mm Keratome blade, a clear corneal incision was created at the 9 o'clock limbus and a cystotome was then used to begin a curvilinear capsulorrhexis that was continued for 360 degrees with the Utrata forceps. BSS on a 26 gauge cannula was injected beneath the anterior capsule to hydrodissect as well as hydrodelineate the lens. After ensuring mobility, phacoemulsification was performed in a [id number]-[id number]-dralqf-type fashion. After all nuclear material had been removed from the eye, IA was introduced and all residual cortical material was cleaned up. Additional Amvisc Plus was injected into the posterior bag and a lens model MX60, 18.0 diopters was then injected and dialed into position. After ensuring centration, IA was reintroduced into the anterior chamber and all residual Amvisc Plus was removed from the eye. BSS on a 30 gauge cannula was injected into the stroma of both the clear corneal incision as well as the paracentesis to hydrate the wounds. Additional BSS was injected into the anterior chamber to pressurize the eye at approximately 20 to 22 mmHg by finger tension. 0.1 mL of antibiotic was injected into the anterior chamber. Weck-Tatyana sponges were used to check the wounds to be watertight. One drop of Apraclonidine and one drop of prednisolone acetate were placed into the eye and a shield was placed over top. The patient was then sent to the postoperative area in satisfactory condition to follow up the following day for postoperative care. [facility] 02-21-2023 Note HISTORY AND PHYSICAL EXAMINATION Date:02/20/2023 HISTORY: The patient is a 73-year-old white male with complaints of declining vision out of his right eye. He feels that this has been occurring for the last several years, worsening over the last 12-18 months. He states having difficulty driving at night time while with glare from headlights and halos. He also states having difficulty reading and watching television. PAST OCULAR HISTORY: Denies. PAST MEDICAL HISTORY: Hypertension, hypercholesterolemia. SOCIAL HISTORY: Denies tobacco, alcohol or recreational drug abuse. SYSTEMIC MEDICATIONS: Include zolpidem, lisinopril, atorvastatin, atenolol, amlodipine. ALLERGIES: Denies. REVIEW OF SYSTEMS: No pertinent positives. PHYSICAL EXAM: VITALS: Blood pressure measured 111/64 with a respiratory rate of 12 and pulse of 58. GENERAL: He is awake, alert and oriented x3, well developed, well nourished, in no acute distress. HEART: Regular rate and rhythm. LUNGS: Clear bilaterally. ABDOMEN: Soft, non-tender, non-distended. EXTREMITIES: No pitting edema. OPHTHALMIC EXAM: Revealed a visual acuity of 20/100 -2 in the right eye that glared to 20/400 and 20/25 -1 that glared to 20/100 in the left eye. Pupils motility, muscle balance, confrontational visual fletcher within normal limits bilaterally. Pressures measured at 16 bilaterally. Slit lamp exam revealed blepharitis with a severe decrease in tear film bilaterally. Conjunctiva, cornea, anterior chamber and iris were within normal limits bilaterally. Lens status demonstrated a 2-3+ nuclear sclerosis with 1+ cortical changes and multiple vacuoles in the right eye and 2+ nuclear sclerosis with trace cortical changes in the left eye. FUNDUS EXAM: Revealed good view with good dilation bilaterally. Optic discs, macula, vessels, periphery and vitreous were within normal limits bilaterally. ASSESSMENT AND PLAN: 1. Visually significant cataract, right eye. After risks, benefits, alternatives, as well as expectations were delivered to the patient, he elected to go forward with cataract removal. He understands the risks include but not limited to infection, bleeding, loss of vision, loss of the eye itself. Secondly, he understands postoperatively he is likely to require spectacle correction for best visual acuity. Finally, a complete ophthalmic exam was performed, there is not determined to be any other source of visual decline other than that of the cataract. 2. COVID-19, the patient was briefed in the office and consented for elective cataract surgery in the setting of the pandemic of coronavirus. He understands that he is at heightened risk going into a hospital setting; however, feels that his activities of daily living are depleted severe enough by his cataracts that he is willing to incur this risk and go forward with his elective procedure. [facility] 02-04-2023 History of Present illness Narrative Patient referred to Blood Management for anemia evaluation/pre-surgical optimization. Current and complete lab data unavailable. Unable to complete evaluation. documented in this encounter [facility] 02-01-2023 Instructions Luma Garcia PA-C - 02/01/2023 3:00 PM EDT Instructions for Blood Management Decreasing the need for blood transfusions after surgery can help your body heal faster and help your body fight infection better. Blood Management will check your blood and iron levels to see if you would benefit from having treatment to help increase your blood counts before your surgery. What do you need to do? 1. Go and have your labs (CBC, Ferritin, Iron Studies) drawn today or within the next three days at the nearest [facility] lab. If you would like, you can go today, following your appointment, to any of our outpatient labs. 2. If it is determined that you would benefit from treatment, someone from the Blood Management Department will call you. If we call you, we will then give further instructions for iron replacement. If you do not hear from Blood Management, your lab results were okay and you do not need additional iron replacement. Questions? Contact us: If you are having surgery at [facility] or If you are having surgery at [place], [place], [facility] , [place], [place], [place], [facility], or [facility] documented in this encounter [facility] 02-01-2023 History of Present illness Narrative CONSULT ORTHOPAEDIC: KNEE PRIMARY CARE PHYSICIAN: Merline Fuller MD REFERRING PROVIDER: SELF ASSESSMENT & PLAN Impression: Left Knee Severe Degenerative Osteoarthritis, Primary and Right Knee Severe Degenerative Osteoarthritis, Primary Scheduled for Robotic Left Total Knee Arthroplasty 07/10/[address] Bishop at . Will have him return prior to surgery for pre-op consents. Ronnie Abebe has radiograph and physical exam evidence of degenerative joint disease and wishes to pursue surgery. This patient appears to have sufficient symptoms to warrant surgical intervention and is an appropriate candidate for left Primary Total Knee Arthroplasty as evidenced by six months of unsuccessful non-operative treatment as outlined in the HPI below and progressive symptoms. Progressive Symptoms Include: Pain worsened by weight bearing Pain limiting ability to stay fit and healthy. This patient has the following risk factors: N/A We had a lengthy discussion regarding the risk and benefit of surgery, the alternatives, limitations and personnel involved. These included but were not limited to infection, persistent pain, instability, nerve injury, blood clots, and medical complications. We also discussed the pre-operative course, surgery itself and rehabilitation. Garima-operative blood management and transfusion issues were discussed, and options clearly outlined. The patient has consented to the use of the banked allogenic blood if medically necessary. The patient has elected to schedule surgery at this time or intends to call the office with a surgical date. Shared decision making occurred while obtaining informed consent. The patient will be scheduled for a pre-operative education class at which time they will have their nasal swab completed and will be given CHG cloths along with the verbal and written instructions for their use. Patient has been instructed and has been scheduled or will call to schedule attendence in one of the total joint perioperative classes offered prior to proceeding with TKA. The patient has been ordered: Anemia Screen Albumin Level CT Ronnie Abebe meets the following criteria for CT: Custom cutting guides for presence of osseous deformity CONSULTS: IMPACT/PACE Consult for preoperative clearance. ACTIVE PROBLEM LIST Malignant Neoplasm of Prostate (Hcc) Hypertension Hyperlipidemia Gerd (Gastroesophageal Reflux Disease) Arthritis SUBJECTIVE CHIEF COMPLAINT: Knee Pain HPI: Ronnie Abebe is a 73 year old patient here for evaluation and management of bilateral knee pain. Ronnie Abebe has had progressive problems with the knee(s) multiple times a day over the past 3 year(s) interfering with activities which include participating in family activities, enjoying hobbies, walking, and climbing stairs. The problem began limiting activities 1-6 months ago. Currently the pain in the joint is rated at 4 out of 10 with minimal activity. The pain is intermittent and is located along the inside aspect. The pain is described as aching and stabbing. Relieving factors include over the counter medication. There is no specific incident that brought about this pain. Ronnie Abebe has no additional complaints. FUNCTIONAL STATUS: Totally dependent Total Joint Arthroplasty: Risk Calculator Ronnie Abebe has a 3.85% chance of NOT returning home at discharge for a Primary total Knee replacement. Ronnie's estimated Length of Stay is 1 day (Outpatient candidate). Ronnie's 30 day chance of readmission is 3.06%. Readmission Probability 3.06 % (within 30 days following surgery) Estimated LOS 1 day Discharge Disposition Probability D/C to Home 96.15 % D/C to SNF 3.85 % These calculations are based on the following factors: - 73 years of age - sex is male - BMI of 27.97 kg/m2 - NarxCare score of 90 - 0 hospitalizations in the last 12 months - no history of heart disease - no history of diabetes - no history of COPD - no history of anemia - preoperative ambulation: independent community distances - 4 step(s) to enter home - bed location is on the first floor - bath location is on the first floor - caregiver is consistent - home is not more than 150 miles away - PROMIS-10 Mental Health T score not available - Marital status: PREVIOUS TREATMENTS: Medical Treatments: OTC NSAIDS for 3 Months or Greater ( ), Steroid Injections Left Knee, Steroid Injections Right Knee REVIEW OF SYSTEMS: PAIN ASSESSMENT: See HPI. MUSCULOSKELETAL: See HPI. Risk Factors for Total Joint Arthroplasty (TJA) Obesity Unknown Risk High: BMI > 40 Moderate: BMI 30-40 Normal: BMI < 30 Diabetes normal High: A1C > 8 Moderate: A1C 7-8 Normal: A1C < 7 Smoking normal High: Current smoker Normal: Non smoker Anemia normal High: Hgb < 13 (men) N/A: Hgb >= 13 (men) Nutritional Status normal High: Alb<3.4, or prealb<15, or serum transferrin<200, or total lymphocyte count<1500 Normal: normal labs COPD normal High: dx of COPD Normal: no dx of COPD MRSA normal High: dx of MRSA or positive lab test Normal: no MRSA CKD normal High: eGFR<60 Moderate: eGFR 60-89 Normal: eGFR>90 Hx of DVT / PE normal High: dx of DVT / PE Normal: no dx of DVT / PE Narcotics Use normal High:NarxCare >=300 Moderate: 100-299 Normal: 0-99 JL normal High: dx of JL N/A: no dx of JL Coagulation normal High:PT Sec>13, or PT INR>1.3, or APTT>32.4, or Plt ct<150k Moderate: on anticoag but none of the above Normal: none Obesity: height and/or weight are out of date (There is no height and/or weight reading in the past 365 days, so the below BMI readings may be inaccurate) BMI Readings from Last 3 Encounters: 01/28/12 : 28.63 kg/m 11/22/11 : 28.63 kg/m 11/14/11 : 29.35 kg/m Other Risk Factors None PAST MEDICAL HISTORY Diagnosis Date HTN (hypertension) Hyperlipidemia Malignant neoplasm of prostate PAST SURGICAL HISTORY Procedure Laterality Date NONE FAMILY HISTORY Problem Relation Age of Onset other (Lung Cancer [Other]) Father other (Mesothelioma [Other]) Mother Social History Tobacco Use Smoking status: Never Smokeless tobacco: Never Substance Use Topics Alcohol use: Yes Alcohol/week: 0.0 standard drinks Comment: 1 drink of vodka daily Drug use: No ALLERGIES: Patient has no known allergies. MEDICATIONS: Vardenafil HCl (LEVITRA) 20 mg ORAL tablet Take 20 mg by mouth as needed. 30-60 minutes before sexual intercourse. ATENOLOL ORAL Take 1 tablet by mouth once daily. Unknown Dosage. AMLODIPINE BESYLATE/BENAZEPRIL (LOTREL ORAL) Take 1 tablet by mouth once daily. Unknown Dosage. ROSUVASTATIN CALCIUM (CRESTOR ORAL) Take 1 tablet by mouth once daily. Unknown Dosage. FAMOTIDINE (PEPCID ORAL) Take 1 tablet by mouth once daily. Unknown Dosage. multivitamin ORAL tablet Take 1 tablet by mouth once daily. Glucosamine Sulfate (GLUCOSAMINE) 500 mg ORAL Tab Take 1 tablet by mouth once daily. PHYSICAL EXAM: There were no vitals taken for this visit. All other systems deferred. GENERAL: Appears healthy, well-nourished, no deformities. HABITUS: Normal GAIT: Normal, the patient did not have trouble getting onto the exam table. KNEE EXAM: Left: Alignment: Varus deformity, Correctable Range of motion is 0 degrees in extension and 130 degrees of flexion. Extension La degrees Pain with ROM: No Effusion: None Tender to the palpation of Medial femoral condyle and Medial joint line Pain with patellar compression: Yes Stability: Anterior/Posterior stable and Varus/Valgus stable Hip Exam: flexion to 100+ degrees, full extension, internal/external rotation adequate, and no pain with log roll Neurovascular Status: Sensation Intact, Moves foot and ankle up & down, and 2+ dorsalis pedis Right: Alignment: Varus deformity, Correctable Range of motion is 0 degrees in extension and 130 degrees of flexion. Extension La degrees Pain with ROM: No Effusion: None Tender to the palpation of Medial femoral condyle and Medial joint line Pain with patellar compression: No Stability: Anterior/Posterior stable and Varus/Valgus stable Hip Exam: flexion to 100+ degrees, full extension, internal/external rotation adequate, and no pain with log roll Neurovascular Status: Sensation Intact, Moves foot and ankle up & down, and 2+ dorsalis pedis DATA: Diagnostic tests reviewed for today's visit: Right knee X-Ray: Medial joint space noted to have severe degenerative changes and Patellofemoral joint noted to have moderate degenerative changes Left knee X-Ray: Medial joint space noted to have severe degenerative changes and Patellofemoral joint noted to have moderate degenerative changes. The following conditions were addressed during the office visit today: N/A SIGNATURE: Luma Garcia PA-C PATIENT NAME: Ronnie Abebe DATE: February 01, 2023 TIME: 2:00 PM documented in this encounter [facility] 02-01-2023 History of Present illness Narrative Radiology Service Progress Note PATIENT NAME: Ronnie Abebe DATE OF SERVICE: February 01, 2023 TIME: 1:45 PM PATIENT IDENTITY VERIFICATION COMPLETED USING TWO (2) IDENTIFIERS: Name and Date of confirmed by patient verbally. FALL SCREENING: Has the patient had 2 falls in the last year or 1 fall with injury or currently using an Ambulatory Assistive Device (Walker, Cane, Wheelchair, Crutches, etc.)? No PATIENT GENDER DATA: Male PATIENT RELEVANT IMPLANT DATA REVIEWED: Not Applicable RADIOLOGY DEPARTMENT: General X-ray: Exam(s) Completed: Lower Extremity X-Ray(s): Knee, AP / Lat / Tunne / Merchant Bilateral and Wt. Bearing PERIPHERAL IV DATA: Not applicable SIGNED BY: RT Stanislaw(R) February 01, 2023 1:45 PM documented in this encounter [facility] Evaluation note Diagnosis Primary osteoarthritis of left knee- Primary Primary localized osteoarthrosis, lower leg Primary osteoarthritis of right knee Primary localized osteoarthrosis, lower leg Anemia, unspecified type [facility] Pain Generalized pain [facility] Diagnosis Pre-op evaluation- Primary Preoperative examination, unspecified Arthritis of left knee Unspecified arthropathy, lower leg [facility] Diagnosis Primary osteoarthritis of left knee Primary localized osteoarthrosis, lower leg Primary osteoarthritis of right knee Primary localized osteoarthrosis, lower leg Anemia, unspecified type Arthritis of left knee Unspecified arthropathy, lower leg [facility] Arthritis of left knee- Primary Unspecified arthropathy, lower leg Arthritis of left knee Unspecified arthropathy, lower leg [facility] Diagnosis Pain- Primary Generalized pain Arthritis of left knee Unspecified arthropathy, lower leg [facility] Diagnosis Arthritis of left knee- Primary Unspecified arthropathy, lower leg Arthritis of left knee Unspecified arthropathy, lower leg documented in this encounter [facility] note* Diagnosis S/P total knee arthroplasty, left- Primary Acute post-operative pain documented in this encounter [facility] note* Diagnosis Arthritis of left knee Unspecified arthropathy, lower leg Arthritis of left knee Unspecified arthropathy, lower leg documented in this encounter [facility] note* Diagnosis Primary osteoarthritis of right knee- Primary Primary localized osteoarthrosis, lower leg documented in this encounter [facility] note* Diagnosis Pre-operative examination- Primary Preoperative examination, unspecified Primary osteoarthritis of right knee Primary localized osteoarthrosis, lower leg Chronic pain of right knee Primary hypertension Unspecified essential hypertension Hyperlipidemia, unspecified hyperlipidemia type Tricuspid valve insufficiency, unspecified etiology Pulmonary hypertension (HCC) Other chronic pulmonary heart diseases Dilation of aorta (HCC) Gastroesophageal reflux disease, unspecified whether esophagitis present History of prostate cancer Personal history of malignant neoplasm of prostate Primary osteoarthritis of right knee Primary localized osteoarthrosis, lower leg documented in this encounter [facility] note* Diagnosis Primary osteoarthritis of right knee Primary localized osteoarthrosis, lower leg Primary osteoarthritis of right knee Primary localized osteoarthrosis, lower leg documented in this encounter [facility] note* Diagnosis Primary osteoarthritis of right knee Primary localized osteoarthrosis, lower leg Primary osteoarthritis of right knee Primary localized osteoarthrosis, lower leg documented in this encounter [facility] note* Diagnosis Status post total knee replacement, right Primary osteoarthritis of right knee Primary localized osteoarthrosis, lower leg documented in this encounter [facility] note* Diagnosis Status post total knee replacement, right Primary osteoarthritis of right knee Primary localized osteoarthrosis, lower leg [facility] Diagnosis S/P total knee arthroplasty, right- Primary documented in this encounter [facility] note* Diagnosis S/P total knee arthroplasty, right- Primary Status post left knee replacement [facility] Diagnosis S/P total knee arthroplasty, right documented in this encounter [facility] for referral (narrative)* Diagnostic Procedure Only (Routine) - Closed Specialty Diagnoses / Procedures Referred By Sumi t Referred To Contact XR IMAGING Diagnoses Pain Procedures XR KNEE GENERAL 4V AP BOTH/PA BOTH/LAT/MERC BILATERAL RADIOLOGIC EXAM KNEE COMPLETE 4/MORE VIEWS Luma Garcia PA-C [address] [place] [address] Xr Imaging Referral ID Status Reason Start Date Expiration Date V isits Requested Visits Authorized [id number] Closed Auto-Generate d Referral 01/23/2023 02/22/2024 1 1 [facility] for referral (narrative)* Outpatient Procedure (Routine) - Authorized Specialty Diagnoses / Procedures Referred By Contac t Referred To Contact [facility] Diagnoses Pre-op evaluation Procedures ECHO ECHO TTHRC R-T 2D W/WOM-MODE COMPL SPEC&COLR D Valeria Farmer MD [address] [place] [address] [facility] [address] [place] [address] Referral ID Status Reason Start Date Expiration Date Visits Requested Visits Authorized [id number] Authorized Auto-Generat ed Referral 04/29/2023 04/28/2024 1 1 [facility] for referral (narrative)* Diagnostic Procedure Only (Routine) - Closed Specialty Diagnoses / Procedures Referred By Contac t Referred To Contact XR IMAGING Diagnoses Pain Procedures XR KNEE GENERAL 4V AP BOTH/PA BOTH/LAT/MERC BILATERAL RADIOLOGIC EXAM KNEE COMPLETE 4/MORE VIEWS Luma Garcia PA-C [address] [place] [address] Xr Imaging Referral ID Status Reason Start Date Expiration Date V isits Requested Visits Authorized [id number] Closed Auto-Generate d Referral 01/23/2023 02/22/2024 1 1 [facility] [facility] (narrative[facility] Diagnostic Procedure Only (Routine) - Closed Specialty Diagnoses / Procedures Referred By Contac t Referred To Contact XR IMAGING Diagnoses Arthritis of left knee Procedures XR KNEE POST OP 3V AP/LAT/MERCHANT LEFT RADIOLOGIC EXAMINATION KNEE 3 VIEWS Shaji Bishop MD [address] [id number] Xr Imaging [id number] Referral ID Status Reason Start Date Expiration Date V isits Requested Visits Authorized [id number] Closed Auto-Generate d Referral 05/16/2023 03/05/2024 1 1 [facility] for referral (narrative)* Diagnostic Procedure Only (Routine) - Closed Specialty Diagnoses / Procedures Referred By Contac t Referred To Contact XR IMAGING Diagnoses Primary osteoarthritis of right knee Procedures XR KNEE GENERAL 4V AP BOTH/PA BOTH/LAT/MERC RIGHT RADIOLOGIC EXAM KNEE COMPLETE 4/MORE VIEWS Shaji Bishop MD [address] [id number] Xr Imaging [id number] Referral ID Status Reason Start Date Expiration Date V isits Requested Visits Authorized [id number] Closed Auto-Generate d Referral 06/12/2023 07/09/2024 1 1 [facility] for referral (narrative)* Diagnostic Procedure Only (Routine) - Authorized Specialty Diagnoses / Procedures Referred By Contac t Referred To Contact XR IMAGING Diagnoses S/P total knee arthroplasty, right Procedures XR KNEE POST OP 3V AP/LAT/MERCHANT BILATERAL RADIOLOGIC EXAMINATION KNEE 3 VIEWS Luma Garcia PA-C [address] [place] [address] Xr Imaging [id number] Referral ID Status Reason Start Date Expiration Date Visits Requested Visits Authorized [id number] Authorized Auto-Generat ed Referral 11/01/2024 1 1 * Physical Therapy (Routine) - Pending Review Specialty Diagnoses / Procedures Referred By Contac t Referred To Contact [facility] Diagnoses S/P total knee arthroplasty, right Procedures CONSULT TO PHYSICAL THERAPY PHYSICAL THERAPY EVALUATION HIGH COMPLEX 45 MINS Luma Garcia PA-C [address] [place] [address] [facility] [place] [address] [place] [address] Referral ID Status Reason Start Date Expiration Date Visits Requested Visits Authorized [id number] Pending Review PCP Requested Referral Auto-Generate d Referral 10/02/2024 99 99 [facility] for referral (narrative)* Diagnostic Procedure Only (Routine) - Closed Specialty Diagnoses / Procedures Referred By Contac t Referred To Contact XR IMAGING Diagnoses S/P total knee arthroplasty, right Procedures XR KNEE POST OP 3V AP/LAT/MERCHANT BILATERAL RADIOLOGIC EXAMINATION KNEE 3 VIEWS Luma Garcia PA-C [address] [place] [address] [place] [address] Referral ID Status Reason Start Date Expiration Date V isits Requested Visits Authorized [id number] Closed Auto-Generate d Referral 10/03/2023 11/01/2024 1 1 [facility] for visit Narrative* Diagnostic Procedure Only (Routine) - Closed Specialty Diagnoses / Procedures Referred By Contac t Referred To Contact XR IMAGING Diagnoses Primary osteoarthritis of right knee Procedures XR KNEE GENERAL 4V AP BOTH/PA BOTH/LAT/MERC RIGHT RADIOLOGIC EXAM KNEE COMPLETE 4/MORE VIEWS Shaji Bishop MD [address] [place] [address] [place] [address] Referral ID Status Reason Start Date Expiration Date V isits Requested Visits Authorized [id number] Closed Auto-Generate d Referral 06/12/2023 07/09/2024 1 1 [facility] Reason for Referral Specialty Diagnoses / Procedures Referred By Contac t Referred To Contact CT IMAGING Diagnoses Primary osteoarthritis of left knee Primary osteoarthritis of right knee Anemia, unspecified type Procedures CT KNEE WO IVCON LEFT CT LOWER EXTREMITY W/O CONTRAST MATERIAL Luma Garcia PA-C [address] [place] [address] Ct Imaging Referral ID Status Reason Start Date Expiration Date Visits Requested Visits Authorized [id number] Pending Review Auto-Generat ed Referral 02/01/2023 03/02/2024 1 1 Referral ID Status Reason Start Date Expiration Date V isits Requested Visits Authorized [id number] Closed Auto-Generate d Referral 02/01/2023 03/02/2024 1 1 Specialty Diagnoses / Procedures Referred By Contac t Referred To Contact [facility] Diagnoses S/P total knee arthroplasty, left Acute post-operative pain Procedures CONSULT TO PHYSICAL THERAPY PHYSICAL THERAPY EVALUATION HIGH COMPLEX 45 MINS Luma Garcia PA-C [address] [place] [address] [facility] [address] [address] Referral ID Status Reason Start Date Expiration Date Visits Requested Visits Authorized [id number] Pending Review PCP Requested Referral Auto-Generate d Referral 06/07/2023 06/06/2024 99 99 Specialty Diagnoses / Procedures Referred By Contac t Referred To Contact CT IMAGING Diagnoses Primary osteoarthritis of right knee Procedures CT KNEE WO IVCON RIGHT CT LOWER EXTREMITY W/O CONTRAST MATERIAL Shaji Bishop MD [address] [place] [address] Ct Imaging [id number] Referral ID Status Reason Start Date Expiration Date Visits Requested Visits Authorized [id number] Pending Review Auto-Generat ed Referral 06/12/2023 07/09/2024 1 1 Specialty Diagnoses / Procedures Referred By Contac t Referred To Contact Anesthesiology Diagnoses Primary osteoarthritis of right knee Procedures CONSULT TO ANESTHESIOLOGY OFFICE/OUTPATIENT [facility] MDM 60-74 MINUTES Shaji Bishop MD [address] [place] [address] Referral ID Status Reason Start Date Expiration Date Visits Requested Visits Authorized [id number] Authorized PCP Requested Referral 06/12/2023 06/09/2024 1 1 Specialty Diagnoses / Procedures Referred By Contac t Referred To Contact XR IMAGING Diagnoses Primary osteoarthritis of right knee Procedures XR KNEE GENERAL 4V AP BOTH/PA BOTH/LAT/MERC RIGHT RADIOLOGIC EXAM KNEE COMPLETE 4/MORE VIEWS Shaji Bishop MD [address] [phone] Xr Imaging [place] [address] Referral ID Status Reason Start Date Expiration Date Visits Requested Visits Authorized [id number] Pending Review Auto-Generat ed Referral 06/12/2023 07/09/2024 1 1 Specialty Diagnoses / Procedures Referred By Contac t Referred To Contact XR IMAGING Diagnoses Primary osteoarthritis of right knee Procedures XR KNEE POST OP 3V AP/LAT/MERCHANT RIGHT RADIOLOGIC EXAMINATION KNEE 3 VIEWS Shaji Bishop MD [address] [phone] Xr Imaging [place] [address] Referral ID Status Reason Start Date Expiration Date Visits Requested Visits Authorized [id number] Pending Review Auto-Generat ed Referral 06/12/2023 07/09/2024 1 1 Specialty Diagnoses / Procedures Referred By Contac t Referred To Contact [facility] Diagnoses Primary osteoarthritis of right knee Procedures ECG COMPLETE ECG ROUTINE ECG W/LEAST 12 LDS W/I&R Shaji Bishop MD [address] [phone] [facility] [place] [facility] [phone] Referral ID Status Reason Start Date Expiration Date Visits Requested Visits Authorized [id number] Pending Review Auto-Generat ed Referral 06/12/2023 06/09/2024 1 1 Referral ID Status Reason Start Date Expiration Date V isits Requested Visits Authorized [id number] Closed Auto-Generate d Referral 06/12/2023 07/09/2024 1 1 Specialty Diagnoses / Procedures Referred By Contac t Referred To Contact Diagnoses Status post total knee replacement, right Primary osteoarthritis of right knee Luma Garcia PA-C [address] [phone] Referral ID Status Reason Start Date Expiration Date V isits Requested Visits Authorized [id number] Pending Review 1 1 Summary Purpose Family History No Family History Records FoundNo Family History Records Found Advance Directives No Advanced Directives Records FoundNo Advanced Directives Records Found Health Concerns Problem Noted Date Diagnosed Date 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[employer] 05/02/2023 Problem Noted Date Diagnosed Date 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[employer] 05/02/2023 Problem Noted Date Diagnosed Date 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[employer] 05/02/2023 Problem Noted Date Diagnosed Date 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[employer] 05/02/2023 Problem Noted Date Diagnosed Date 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[employer] 05/02/2023 Problem Noted Date Diagnosed Date 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[employer] 05/02/2023 Problem Noted Date Diagnosed Date 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[employer] 05/02/2023 Problem Noted Date Diagnosed Date 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[employer] 05/02/2023 Problem Noted Date Diagnosed Date 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[employer] 05/02/2023 Problem Noted Date Diagnosed Date 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[employer] 05/02/2023 Problem Noted Date Diagnosed Date 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[employer] 05/02/2023 Additional Source Comments Source Comments (unrecognize d section and content) In the event this informatio n is protected by the Federal Confidentiality of Alcohol and Drug Abuse Patient Records regulations: The Federal rules restrict any use of the information to criminally investigate or prosecute any alcohol or drug abuse patient.[facility] event this information is protected by the Federal Confidentiality of Alcohol and Drug Abuse Patient Records regulations: The Federal rules restrict any use of the information to criminally investigate or prosecute any alcohol or drug abuse patient.[facility] the event this information is protected by the Federal Confidentiality of Alcohol and Drug Abuse Patient Records regulations: The Federal rules restrict any use of the information to criminally investigate or prosecute any alcohol or drug abuse patient.[facility] the event this information is protected by the Federal Confidentiality of Alcohol and Drug Abuse Patient Records regulations: The Federal rules restrict any use of the information to criminally investigate or prosecute any alcohol or drug abuse patient.[facility] the event this information is protected by the Federal Confidentiality of Alcohol and Drug Abuse Patient Records regulations: The Federal rules restrict any use of the information to criminally investigate or prosecute any alcohol or drug abuse patient.[facility] the event this information is protected by the Federal Confidentiality of Alcohol and Drug Abuse Patient Records regulations: The Federal rules restrict any use of the information to criminally investigate or prosecute any alcohol or drug abuse patient.[facility] the event this information is protected by the Federal Confidentiality of Alcohol and Drug Abuse Patient Records regulations: The Federal rules restrict any use of the information to criminally investigate or prosecute any alcohol or drug abuse patient.[facility] the event this information is protected by the Federal Confidentiality of Alcohol and Drug Abuse Patient Records regulations: The Federal rules restrict any use of the information to criminally investigate or prosecute any alcohol or drug abuse patient.[facility] the event this information is protected by the Federal Confidentiality of Alcohol and Drug Abuse Patient Records regulations: The Federal rules restrict any use of the information to criminally investigate or prosecute any alcohol or drug abuse patient.[facility] the event this information is protected by the Federal Confidentiality of Alcohol and Drug Abuse Patient Records regulations: The Federal rules restrict any use of the information to criminally investigate or prosecute any alcohol or drug abuse patient.[facility] the event this information is protected by the Federal Confidentiality of Alcohol and Drug Abuse Patient Records regulations: The Federal rules restrict any use of the information to criminally investigate or prosecute any alcohol or drug abuse patient.[facility] the event this information is protected by the Federal Confidentiality of Alcohol and Drug Abuse Patient Records regulations: The Federal rules restrict any use of the information to criminally investigate or prosecute any alcohol or drug abuse patient.[facility] the event this information is protected by the Federal Confidentiality of Alcohol and Drug Abuse Patient Records regulations: The Federal rules restrict any use of the information to criminally investigate or prosecute any alcohol or drug abuse patient.[facility] the event this information is protected by the Federal Confidentiality of Alcohol and Drug Abuse Patient Records regulations: The Federal rules restrict any use of the information to criminally investigate or prosecute any alcohol or drug abuse patient.[facility] the event this information is protected by the Federal Confidentiality of Alcohol and Drug Abuse Patient Records regulations: The Federal rules restrict any use of the information to criminally investigate or prosecute any alcohol or drug abuse patient.[facility] the event this information is protected by the Federal Confidentiality of Alcohol and Drug Abuse Patient Records regulations: The Federal rules restrict any use of the information to criminally investigate or prosecute any alcohol or drug abuse patient.[facility] the event this information is protected by the Federal Confidentiality of Alcohol and Drug Abuse Patient Records regulations: The Federal rules restrict any use of the information to criminally investigate or prosecute any alcohol or drug abuse patient.[facility] the event this information is protected by the Federal Confidentiality of Alcohol and Drug Abuse Patient Records regulations: The Federal rules restrict any use of the information to criminally investigate or prosecute any alcohol or drug abuse patient.[facility] the event this information is protected by the Federal Confidentiality of Alcohol and Drug Abuse Patient Records regulations: The Federal rules restrict any use of the information to criminally investigate or prosecute any alcohol or drug abuse patient.[facility] the event this information is protected by the Federal Confidentiality of Alcohol and Drug Abuse Patient Records regulations: The Federal rules restrict any use of the information to criminally investigate or prosecute any alcohol or drug abuse patient.[facility] the event this information is protected by the Federal Confidentiality of Alcohol and Drug Abuse Patient Records regulations: The Federal rules restrict any use of the information to criminally investigate or prosecute any alcohol or drug abuse patient.[facility] the event this information is protected by the Federal Confidentiality of Alcohol and Drug Abuse Patient Records regulations: The Federal rules restrict any use of the information to criminally investigate or prosecute any alcohol or drug abuse patient.[facility] the event this information is protected by the Federal Confidentiality of Alcohol and Drug Abuse Patient Records regulations: The Federal rules restrict any use of the information to criminally investigate or prosecute any alcohol or drug abuse patient.[facility] the event this information is protected by the Federal Confidentiality of Alcohol and Drug Abuse Patient Records regulations: The Federal rules restrict any use of the information to criminally investigate or prosecute any alcohol or drug abuse patient.[facility] Reason for Visit (unrecogniz ed section and content) Reason Comments New Knee Pain Reason Comments Radio Gen A21 Specialty Diagnoses / Procedures Referred By Contac t Referred To Contact XR IMAGING Diagnoses Pain Procedures XR KNEE GENERAL 4V AP BOTH/PA BOTH/LAT/MERC BILATERAL RADIOLOGIC EXAM KNEE COMPLETE 4/MORE VIEWS Luma Garcia, PA-C [address] [place] [address] Xr Imaging Referral ID Status Reason Start Date Expiration Date V isits Requested Visits Authorized [id number] Closed Auto-Generate d Referral 01/23/2023 02/22/2024 1 1 Specialty Diagnoses / Procedures Referred By Contac t Referred To Contact CT IMAGING Diagnoses Primary osteoarthritis of left knee Primary osteoarthritis of right knee Anemia, unspecified type Procedures CT KNEE WO IVCON LEFT CT LOWER EXTREMITY W/O CONTRAST MATERIAL Luma Garcia PA-C [address] [place] [address] Ct Imaging Referral ID Status Reason Start Date Expiration Date V isits Requested Visits Authorized [id number] Closed Auto-Generate d Referral 02/01/2023 03/02/2024 1 1 Reason Comments Blood Management Reason Comments Patient Update Surgery Arrival Time Reason Comments Post Op Reason Comments Post Op Most discomfort is c oming from behind the knee and the calf muscle. 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 Reason Comments Pre-Op Visit Reason Comments Radiology CT Specialty Diagnoses / Procedures Referred By Contac t Referred To Contact CT IMAGING Diagnoses Primary osteoarthritis of right knee Procedures CT KNEE WO IVCON RIGHT CT LOWER EXTREMITY W/O CONTRAST MATERIAL Shaji Bishop MD [address] [place] [address] Ct Imaging [id number] Referral ID Status Reason Start Date Expiration Date V isits Requested Visits Authorized [id number] Closed Auto-Generate d Referral 06/12/2023 07/09/2024 1 1 Reason Onset Date Comments Refill Request 09/09/2023 Reason Onset Date Comments Refill Request 09/16/2023 Reason Comments Radiology XR Specialty Diagnoses / Procedures Referred By Contac t Referred To Contact XR IMAGING Diagnoses S/P total knee arthroplasty, right Procedures XR KNEE POST OP 3V AP/LAT/MERCHANT BILATERAL RADIOLOGIC EXAMINATION KNEE 3 VIEWS Luma Garcia PA-C [address] [place] [address] [place] [address] Referral ID Status Reason Start Date Expiration Date V isits Requested Visits Authorized [id number] Closed Auto-Generate d Referral 10/03/2023 11/01/2024 1 1 Care Teams (unrecognized sec tion and content) Violin Teacher Relationship Specialty Start Date End Date Merline Fuller MD PCP - General Family Medicine 08/01/11 Violin Teacher Relationship Specialty Start Date End Date Merline Fuller MD PCP - General Family Medicine 08/01/11 Violin Teacher Relationship Specialty Start Date End Date Merline Fuller MD PCP - General Family Medicine 08/01/11 Violin Teacher Relationship Specialty Start Date End Date Merline Fuller MD PCP - General Family Medicine 08/01/11 Violin Teacher Relationship Specialty Start Date End Date Merline Fuller MD PCP - General Family Medicine 08/01/11 Violin Teacher Relationship Specialty Start Date End Date Merline Fuller MD PCP - General Family Medicine 08/01/11 Violin Teacher Relationship Specialty Start Date End Date Merline Fuller MD PCP - General Family Medicine 08/01/11 Violin Teacher Relationship Specialty Start Date End Date Merline Fuller MD PCP - General Family Medicine 08/01/11 Violin Teacher Relationship Specialty Start Date End Date Merline Fuller MD PCP - General Family Medicine 08/01/11 Violin Teacher Relationship Specialty Start Date End Date Merline Fuller MD PCP - General Family Medicine 08/01/11 Violin Teacher Relationship Specialty Start Date End Date Merline Fuller MD PCP - General Family Medicine 08/01/11 Violin Teacher Relationship Specialty Start Date End Date Merline Fuller MD PCP - General Family Medicine 08/01/11 Violin Teacher Relationship Specialty Start Date End Date Merline Fuller MD PCP - General Family Medicine 08/01/11 Violin Teacher Relationship Specialty Start Date End Date Merline Fuller MD PCP - General Family Medicine 08/01/11 Violin Teacher Relationship Specialty Start Date End Date Merline Fuller MD PCP - General Family Medicine 08/01/11 Violin Teacher Relationship Specialty Start Date End Date Merline Fuller MD PCP - General Family Medicine 08/01/11 Violin Teacher Relationship Specialty Start Date End Date Merline Fuller MD PCP - General Family Medicine 08/01/11 Violin Teacher Relationship Specialty Start Date End Date Merline Fuller MD PCP - General Family Medicine 08/01/11 Violin Teacher Relationship Specialty Start Date End Date Merline Fuller MD PCP - General Family Medicine 08/01/11 Violin Teacher Relationship Specialty Start Date End Date Merline Fuller MD PCP - General Family Medicine 08/01/11 (unrecognized sect ion and content) No Status Records FoundNo Status Records Found INFORMATION SOURCE (unrecogn ized section and content) DATE CREATED AUTHOR 03/03/2023 [facility] DATE CREATED AUTHOR AUTHOR'S ORGANIZ ATION 04/03/2024 [facility] FOR RECORDS PERTAINING TO PATIENTS WHO ARE OR HAVE BEEN ENROLLED IN A CHEMICAL DEPENDENCY/SUBSTANCEABUSE PROGRAM, SOME INFORMATION MAY BE OMITTED. This clinical summary was aggregated from multiple sources. Caution should be exercised in using it in the provision of clinical care. This summary normalizes information from multiple sources, and as a consequence, information in this document may materially change the coding, format and clinical context of patient data. In addition, data may be omitted in some cases. CLINICAL DECISIONS SHOULD BE BASED ON THE PRIMARY CLINICAL RECORDS. [employer] provides no warranty or guarantee of the accuracy or completeness of information in this document.
[2024-10-30 07:30] LABS: Basophils Absolute Auto 0.1 10^3/uL (0.0-0.1); Basophils Percent Auto 1.1 % (0.2-2.0); Eosinophils Absolute Auto 0.3 10^3/uL (0.0-0.7); Eosinophils Percent Auto 4.2 % (0.9-7.0); Hematocrit 44.6 % (42.0-54.0); Immature Granulocytes Abs Auto 0.06 10^3/uL (0.00-0.03); Immature Granulocytes Pct Auto 0.8 % (0.0-0.5); Lymphocytes Absolute Auto 2.3 10^3/uL (1.2-3.8); Lymphocytes Percent Auto 31.6 % (20.5-60.0); Mean Corpuscular HGB Conc 31.4 g/dL (29.9-35.2); Mean Corpuscular Volume 101.8 fL (80.0-94.0); Mean Platelet Volume 9.9 fL (9.5-13.5); Monocytes Absolute Auto 0.9 10^3/uL (0.3-0.8); Monocytes Percent Auto 12.7 % (1.7-12.0); Neutrophils Absolute Auto 3.7 10^3/uL (1.4-6.5); Neutrophils Percent Auto 49.6 % (43.0-75.0); Platelet Count 529 10^3/uL (150-450); Red Blood Count 4.38 10^6/uL (4.70-6.10); Red Cell Distribution Width 13.5 % (11.0-15.0); White Blood Count 7.4 10^3/uL (4.0-11.0)
[2024-10-30 13:44] LABS: Alanine Aminotransferase 322 U/L (16-63); Albumin Globulin Ratio 0.6; Albumin Level 3.4 g/dL (3.4-5.0); Alkaline Phosphatase 942 U/L (46-116); Anion Gap 14.8; Aspartate Amino Transferase 215 U/L (15-37); BUN Creatinine Ratio 16.3; Calcium 9.9 mg/dL (8.5-10.1); Carbon Dioxide 25.8 mmol/L (21.0-32.0); Chloride 103 mmol/L (98-107); Estimated GFR (African America >60 (>=60 mL/min/1.73m^2); Estimated GFR (Non-African Ame 55 (>=60 mL/min/1.73m^2); Globulin 5.4 g/dL; Glucose 109 mg/dL (74-106); Potassium 4.6 mmol/L (3.5-5.1); Sodium 139 mmol/L (136-145); Total Protein 8.8 g/dL (6.4-8.2)
[2024-10-31 08:14] LABS: HBsAg Screen Negative (Negative); HCV Ab Non Reactive (Non Reactive); Hep A Ab, IgM Negative (Negative); Hep B Core Ab, IgM Negative (Negative)
[2024-10-31 23:00] LABS: Bilirubin Total 1.1 mg/dL (0.2-1.0)
== END 2024-10-30 07:13 | disposition home or self-care (01) ==
LOC: LAB 07:14
PROVIDERS: PCP Family Medicine; Visit Provider Family Medicine
DX: I10 Essential (primary) hypertension (principal); Z85.46 Personal history of malignant neoplasm of prostate
CPT/HCPCS: 36415; 80053; 80074; 85025

== ENCOUNTER 2024-11-04 06:54 | Outpatient (OUT) | payer MEDICARE, OTHER, SELFPAY ==
--- NOTE | 2024-11-04 06:57 | US_ITS ---
The [address] [address] Patient Name: PRISCILA ABEBE MRN: [id number] date: 1950 Sex: M Assigned Patient Location: US Current Patient Location: US Accession/Order Number: [id number] Exam Date: 11/04/2024 07:00 Report Date: 11/04/2024 08:29 At the request of: MERLINE FULLER Procedure: US right upper quadrant EXAM: US right upper quadrant HISTORY: Jaundice R17 COMPARISON: None. TECHNIQUE: Grayscale, color and Doppler FINDINGS: The liver is normal in size, contour and echotexture measuring 14.8 cm in length. No solid mass. Hepatopedal flow in the main portal vein with a velocity of 29 cm/s. The gallbladder is normal in size. The wall measures 2.8 mm. The common bile duct is dilated measuring up to 11.1 mm however no focal obstruction was observed. Negative sonographic German sign. The pancreas is poorly visualized, the visualized body is normal The right kidney is normal measuring 11.0 x 5.9 x 5.8 cm. Area of anechoic echogenicity measuring 1.9 cm, simple cortical cyst No ascites US/US right upper quadrant IMPRESSION: Dilated common bile duct of unknown etiology. No obstruction is observed Electronically authenticated by: BARBRA MOSHER Date: 11/04/2024 08:29
--- OUTSIDE RECORDS SUMMARY | 2024-11-04 06:57 | XMS_ITS | CCD ---
Author Organization [facility] Care Team Providers Care Library Services Coordinator Name Role Phone Merline Fuller MD Primary Care Provider [phone] OSMAR NORIEGA Admitting Unavailable OSMAR NORIEGA Attending Unavailable EBONYY ., DR RICK Primary Care Unavailable OSMAR NORIEGA Consulting Unavailable HOY ., DR RICK Admitting Unavailable HOY ., DR RICK Attending Unavailable HOY ., DR RICK Primary Care Unavailable HOY ., DR RICK Consulting Unavailable Merline Fuller MD Primary Care Provider [phone] ALINA MERLINE M Primary Care Unavailable EDNA, [...] on above: Take 1 capsule by mo [facility] two times a day. Famotidine (20 sources) [...] CNOV Office Visit (ORAVON ) RONNIE ABEBE ([id number]) 1950 M Date Time Provider Department 04/02/24 [...] Follow up 1 year X-Rays Needed Ronnie bAebe presents today for a an intermediate post-op [...] documented by the Orthopaedic surgery resident/fellow/physic cecile music library assistant was reviewed and discussed in detail. [...] List As (more content not included)... Normal [facility] XR KNEE 3V AP/LAT/ALVARO BILon 04-02-2024 XR [...] Right total knee arthroplasty without hardware complication. Bed Maker: [facility] Transcribe Date/Time: Apr 02 2024 9:56A Dictated by : JONNY ROGERS MD This examination was interpreted and the report reviewed and electronically signed by: DIAZ FAN MD on Apr 02 2024 10:00AM EST [id number] Normal [facility] XR Knee - bilateral 3 Viewso n 04-02-2024 IMPRESSION: Right total knee arthroplasty without hardware complication. Bed Maker: [facility] Transcribe Date/Time: Apr 02 2024 9:56A [...] DIVISION OF RADIOLOGY Provider, [facility] Imagin g [place] - 04/02/2024 * * *Final Report* * [...] Right total knee arthroplasty without hardware complication. [facility] Transcribe Date/Time: Apr 02 2024 9:56A Dictated by : JONNY ROGERS MD This examination was interpreted and the report reviewed and electronically signed by: DIAZ FAN MD on Apr 02 2024 10:00AM EST [facility] Radiology Study observation (narrative) [facility] XR Knee - bilateral 3 ViewsO rdered By: [facility] Provider on 04-02-2024 [facility] CNOVon 10-03-2023 CNOV Office Visit (ORAVON ) RONNIE ABEBE ([id number]) 1950 M Date Time Provider Department 10/03/23 [...] Last 180 days 09/04/23 Shaji Bishop MD, [id number] Status post total knee replacement, right ..., Admission (Discharged) 05/07/23 Shaji Bishop MD, [id number] Primary osteoarthritis of left knee, Admission (Discharged) [...] Order(s):CONSULT TO PHYSICAL THERAPY [9032] Order #: [id number]: 1 FUTURE XR KNEE POST OP 3V AP/LAT/MERCHANT BILATERAL [[id number]] Order #: [id number] FUTURE Prescriptions as of 10/03/2023 - aspirin, [...] Toprol bu (more content not included)... Normal [facility] XR KNEE 3V AP/LAT/MERCHANT R Ton 10-03-2023 [...] IMPRESSION: Right total knee arthroplasty without complication. Bed Maker: VI Transcribe Date/Time: Oct 03 2023 8:06A Dictated by : OSMAR ESPINOZA MD This examination was interpreted and the report reviewed and electronically signed by: OSMAR ESPINOZA MD on Oct 03 2023 3:26PM EST [id number] Normal [facility] CNCOon 09-10-2023 CNCO Letter Text Normal [facility] CNPNon 09-09-2023 CNPN Telephone (ORTHMN) RONNIE ABEBE ([id number]) 1950 M Date Time Provider Department 09/09/23 [...] by NICOLE MEEKS RN on 09/09/23 Normal [facility] Basic metabolic 2000 panelon 09-05-2023 Anion gap [Moles/Vol] 15 mmol/L Normal 9-18 [facility] Comment on above: Order Comment: Speci men Type: BLOOD SPECIMENOrdering Facility: [facility] Address: [address] [place] [address] Performed By: #### 2 4321-2 ####[facility] LABCLIA [id number] [place] [address] [place] Calcium [Mass/Vol] 9.4 mg/dL Normal 8.5-10.2 [facility] Comment on above: Order Comment: Speci men Type: BLOOD SPECIMENOrdering Facility: [facility] Address: [address] [place] [address] Performed By: #### 2 4321-2 ####[facility] LABCLIA [id number] [place] [address] [place] Chloride [Moles/Vol] 100 mmol/L Normal 97-105 [facility] Comment on above: Order Comment: Speci men Type: BLOOD SPECIMENOrdering Facility: [facility] Address: [address] [place] [address] Performed By: #### 2 4321-2 ####[facility] LABCLIA [id number] [place] [address] [place] CO2 [Moles/Vol] 20 mmol/L Low 22-30 [facility] Comment on above: Order Comment: Speci men Type: BLOOD SPECIMENOrdering Facility: [facility] Address: [address] [place] [address] Performed By: #### 2 4321-2 ####[facility] LABCLIA [id number] [place] [address] [place] Creatinine [Mass/Vol] 0.82 mg/dL Normal 0.73-1.22 [facility] Comment on above: Order Comment: Speci men Type: BLOOD SPECIMENOrdering Facility: [facility] Address: [address] [place] [address] Performed By: #### 2 4321-2 ####[facility] LABCLIA [id number] [place] [address] [place] Creatinine and Glomerular filtration rate.predicted panel (S/P/Bld) 93 mL/min/1.73m??? Normal >=60 [facility] Comment on above: Order Comment: Speci men Type: BLOOD SPECIMENOrdering Facility: [facility] Address: [address] [place] [address] Result Comment: Sarah mated Glomerular Filtration Rate [...] actual GFR. Performed By: #### 2 4321-2 ####[facility] LABIA [id number] [place] [address] [place] Glucose [Mass/Vol] 140 mg/dL High 74-99 [facility] Comment on above: Order Comment: Speci men Type: BLOOD SPECIMENOrdering Facility: [facility] Address: [address] [place] [address] Result Comment: The [place] Diabetes Association (ADA) provides guidance for cutoff [...] Standards of Medical Care in Diabetes 2016, [place] [employer]. Diabetes Care. 2016.39(Suppl 1). Performed By: #### 2 4321-2 ####[facility] LABIA [id number] [place] [address] [place] Potassium [Moles/Vol] 4.4 mmol/L Normal 3.7-5.1 [facility] Comment on above: Order Comment: Winstoni men Type: BLOOD SPECIMENOrdering Facility: [facility] Address: [address] [place] [address] Performed By: #### 2 4321-2 ####[facility] [id number] [place] [address] [place] Sodium [Moles/Vol] 135 mmol/L Low 136-144 [facility] Comment on above: Order Comment: Winstoni men Type: BLOOD SPECIMENOrdering Facility: [facility] Address: [address] [place] [address] Performed By: #### 2 4321-2 ####[facility] LABCLIA [id number] [place] [address] [place] Urea nitrogen [Mass/Vol] 15 mg/dL Normal 9-24 [facility] Comment on above: Order Comment: Speci men Type: BLOOD SPECIMENOrdering Facility: [facility] Address: [address] [place] [address] Performed By: #### 2 4321-2 ####[facility] LABCLIA [id number] [place] [address] [place] CASE MANAGEMon 09-05-2023 CASE MANAGEM HNO ID: [id number] Author: Grant Huerta LSW Service: ? Author Type: General Surgeon Type: Care Mgt Progress Note Filed: 09/05/2023 9:12 AM Note Text: CARE MANAGEMENT DISCHARGE NOTE SERVICE DATE: September 05, 2023 SERVICE TIME: 9:11 AM Admission Date: 09/04/2023 LOS: 1 day Discharge Arrangement Discharge Arrangement: Home with Home Health Services Arranged Medical Services: Skilled Home Health Care Type: Physical Therapy Provider Name: [facility] Caregiver Assessment Caregiver is ready, willing and able to meet the patient's needs as recommended by the inter-professional team: Yes Name of Caregiver: [facility] Transportation Arrangements Transportation Arrangements: Car Date of Trip: 09/05/23 Destination: home Handoff Communication: Handoff to: Primary Care Physician Primary Care Physician Name/Phone: Merline Fuller MD [phone] Additional Information: N/A Discharge Information Row Name Admission (Current) from 09/04/2023 in [facility]. Patient discharged to home with HC services. Discharge orders sent to . SIGNATURE: JOVANNI Chung PATIENT NAME: Ronnie Abebe DATE: September 05, 2023 TIME: 9:11 AM CONTACT #: [phone] Normal [facility] CASE MGT INIT ASSESon 2022 CASE MGT BOO MORILLO HNO ID: [id number] Author: Grant Huerta LSW Service: ? Author Type: General Surgeon Type: Care Mgt Initial Assessment Filed: 09/05/2023 8:39 AM Note Text: CARE MANAGEMENT: ASSESSMENT AND DISCHARGE PLAN SERVICE DATE: September 05, 2023 SERVICE TIME: 8:38 AM ASSESSMENT COMPLETED BY OUTPATIENT ORTHOPAEDIC PRODUCTION FOREMAN ORTHOPAEDIC COORDINATION OF CARE Pre-Op Assessment Discharge [...] min Stress: No Stress Concern Present (08/21/2023) [place] of Occupational Health - Occupational Stress Questionnaire Feeling of Stress : Only a little Social Connections: Socially Integrated (08/21/2023) Social Connection and Isolation Panel [NHANES] Frequency of Communication with Friends and Family: More than three times a week Frequency of Social Gatherings with Friends and Family: Once a week Attends Rastafari Services: 1 to 4 times per year [...] Year: No Utilities: Not At Risk (08/21/2023) [facility] Utilities Threatened with loss of utilities: No Area Deprivation Index: Medium Risk (04/29/2023) Area Deprivation Index National Score (1-100), lower number is lower risk: 73 State Score (1-10), lower number is lower risk: 6 Data from: https://www.[facility] odatlas.medicine.[facility]. edu/. Last address used for calculation: [address] [place] [address] [address] Equipment: Do you currently use [...] you are (more content not included)... Normal [facility] CBC panel Auto (Bld)on 09-05 Erythrocyte distribution width (RBC) [Ratio] 12.9 % Normal 11.5-15.0 [facility] Comment on above: Order Comment: Speci men Type: BLOOD SPECIMENOrdering Facility: [facility] Address: [address] [place] [address] Performed By: #### 5 8410-2 ####[facility] [id number] [place] [address] [place] Hematocrit (Bld) [Volume fraction] 39.8 % Normal 39.0-51.0 [facility] Comment on above: Order Comment: Speci men Type: BLOOD SPECIMENOrdering Facility: [facility] Address: [address] [place] [address] Performed By: #### 5 8410-2 ####[facility] LABIA [id number] [place] [address] [place] Hemoglobin (Bld) [Mass/Vol] 13.0 g/dL Normal 13.0-17.0 [facility] Comment on above: Order Comment: Speci men Type: BLOOD SPECIMENOrdering Facility: [facility] Address: [address] [place] [address] Performed By: #### 5 8410-2 ####[facility] LABIA [id number] [place] [address] [place] MCH (RBC) [Entitic mass] 31.8 pg Normal 26.0-34.0 [facility] Comment on above: Order Comment: Speci men Type: BLOOD SPECIMENOrdering Facility: [facility] Address: [address] [place] [address] Performed By: #### 5 8410-2 ####[facility] LABCLIA [id number] [place] [address] [place] MCHC (RBC) [Mass/Vol] 32.7 g/dL Normal 30.5-36.0 [facility] Comment on above: Order Comment: Speci men Type: BLOOD SPECIMENOrdering Facility: [facility] Address: [address] [place] [address] Performed By: #### 5 8410-2 ####[facility] LABIA [id number] [place] [address] [place] MCV (RBC) [Entitic vol] 97.3 fL Normal 80.0-100.0 [facility] Comment on above: Order Comment: Speci men Type: BLOOD SPECIMENOrdering Facility: [facility] Address: [address] [place] [address] Performed By: #### 5 8410-2 ####[facility] LABIA [id number] [place] [address] [place] Nucleated RBC (Bld) [#/Vol] 10*3/uL Normal <0.01 [facility] Comment on above: Order Comment: Speci men Type: BLOOD SPECIMENOrdering Facility: [facility] Address: [address] [place] [address] Performed By: #### 5 8410-2 ####[facility] LABCLIA [id number] [place] [address] [place] Platelet mean volume (Bld) [Entitic vol] 10.4 fL Normal 9.0-12.7 [facility] Comment on above: Order Comment: Speci men Type: BLOOD SPECIMENOrdering Facility: [facility] Address: [address] [place] [address] Performed By: #### 5 8410-2 ####[facility] LABCLIA [id number] [place] [address] [place] Platelets (Bld) [#/Vol] 257 10*3/uL Normal 150-400 [facility] Comment on above: Order Comment: Speci men Type: BLOOD SPECIMENOrdering Facility: [facility] Address: [address] [place] [address] Performed By: #### 5 8410-2 ####[facility] LABIA [id number] [place] [address] [place] RBC (Bld) [#/Vol] 4.09 10*6/uL Low 4.20-6.00 [facility] Comment on above: Order Comment: Speci men Type: BLOOD SPECIMENOrdering Facility: [facility] Address: [address] [place] [address] Performed By: #### 5 8410-2 ####[facility] LABIA [id number] [place] [address] [place] WBC (Bld) [#/Vol] 14.83 10*3/uL High 3.70-11.00 [facility] Comment on above: Order Comment: Speci men Type: BLOOD SPECIMENOrdering Facility: [facility] Address: [address] [place] [address] Performed By: #### 5 8410-2 ####[facility] [id number] [place] [address] [place] NURSING PROGon 09-05-2023 NURSING PROG HNO ID: [id number] Author: Mary Caravlho RN Service: Nursing Author Type: Registered Nurse Type: Nursing Progress Note Filed: 09/05/2023 9:49 AM Note Text: D/C instructions reviewed with pt at bedside including f/up appts, s/sx infection and actions to take, incision care, activity/WB restrictions, DVT prophylaxis and homegoing medications. Pt verbalizes understanding. Printed instruction packet with this information provided. IV removed. Spouse will transport home via personal vehicle. Normal [facility] THERAPY NTon 09-05-2023 THERAPY NT HNO ID: [id number] Author: Marichuy Mejia, OTR/L Service: Occupational Therapy Author Type: Occupational Therapist Type: Therapy (PT/OT/Speech/Resp) Filed: 09/05/2023 11:18 AM Note Text: Occupational Therapy Evaluation SERVICE DATE: 09/05/2023 SERVICE TIME: 940 to 955 ROOM: [place] [address] Total Joint Replacement Discharge Readiness: Cleared from [...] Interventions Provided: Evaluation $ Evaluation - Low (95732) Billed Units: 1 unit Training AND Education Provided in: Discharge Planning, Activity Adaptation/Senior Business Analyst y Strategies, Functional Mobility Involving ADLs, Lower Extremity Dressing, Positioning, Precautions/Restrictio ns, Role of Occupational Therapy, Standing Balance to Improve [place] with ADLs/Self-Care The Following Therapeutic Skills Were Used: Activity Dosing, Cues for Sequencing/Proper Technique for Activity, Cuing Tactile, Cuing Verbal, Cuing Visual, Physical Assist, Therapeutic Use of Self, Teach-Back for Education Skilled Treatment Time (minutes): 15 Please see discipline specific clinical documentation flow (more content not included)... Normal [facility] THERAPY NT HNO ID: [id number] Author: Michele Hoff PTA Service: Physical Therapy Author Type: Barrel Endshake Adjuster Type: Therapy (PT/OT/Speech/Resp) Filed: 09/05/2023 9:33 AM [...] Daily Plan (more content not included)... Normal [facility] ANES POSTPROC EVALon 023 ANES POSTPROC EVAL HNO ID: [id number] Author: Alba Gole MD Service: ? Author Type: Anesthesiologist Type: Anesthesia Postprocedure Evaluation Filed: 09/04/2023 4:40 PM Note Text: POST ANESTHESIA EVALUATION NOTE : 1950 Procedure Summary Date: 09/04/23 Room / Location: [address] [facility] Anesthesia Start: 1053 Anesthesia Stop: [...] September 04, 2023 TIME: 4:40 PM CSN: [id number] Normal [facility] ANES PRE-OPon 09-04-2023 ANES PRE-OP HNO ID: [id number] Author: Alba Goel MD Service: ? Author Type: Anesthesiologist Type: Anesthesia Preprocedure Evaluation Filed: 09/04/2023 7:35 AM Note Text: ANESTHESIOLOGY DAY OF SURGERY NOTE : 1950 Procedure Information Date/Time: 09/04/2345 Procedure: ROBOTIC ASSISTED TOTAL KNEE ARTHROPLASTY (Right: Knee) Location: [address] [place] Surgeons: Shaji Bishop MD Estimated body mass [...] and consent discussed: yes. Patient / Responsible Republican agrees to proceed: yes Patient / Surrogate [...] SIGNATURE: Espinoza Goel MD PATIENT NAME: Ronnie Abbee DATE: September 04, 2023 TIME: 7:33 AM CSN: [id number] Normal [facility] BRIEF OP NOTon 09-04-2023 BRIEF OP NOT HNO ID: [id number] Author: Michelet Johnston MD Service: Orthopaedic Surgery Author Type: Resident Type: Brief Op Note Filed: 09/04/2023 1:29 PM Note Text: BRIEF OP NOTE LOG ID: [id number] Surgery/Procedure Date: 09/04/2023 Incision/Procedure Start Time: 11:29 AM Incision Close/Procedure End Time: Surgeon(s)/Procedurali st(s) and Electric Screw Driver Operator(s): Surgeon(s) and Role: * Shaji Bishop MD [...] 04, 2023 TIME: 1:29 PM PAGER/CONTACT #: [phone] Plan of care discussed with: Provider, RN, Patient. Normal [facility] Basic metabolic 2000 panelon 09-04-2023 Anion gap [Moles/Vol] 10 mmol/L Normal 9-18 [facility] Comment on above: Order Comment: Speci men Type: BLOOD SPECIMENOrdering Facility: [facility] Address: [address] [place] [address] Performed By: #### 2 4321-2 ####[facility] LABCLIA [id number] [place] [address] [place] Calcium [Mass/Vol] 9.6 mg/dL Normal 8.5-10.2 [facility] Comment on above: Order Comment: Speci men Type: BLOOD SPECIMENOrdering Facility: [facility] Address: [address] [place] [address] Performed By: #### 2 4321-2 ####[facility] LABCLIA [id number] [place] [address] [place] Chloride [Moles/Vol] 105 mmol/L Normal 97-105 [facility] Comment on above: Order Comment: Speci men Type: BLOOD SPECIMENOrdering Facility: [facility] Address: [address] [place] [address] Performed By: #### 2 4321-2 ####[facility] LABCLIA [id number] [place] [address] [place] CO2 [Moles/Vol] 24 mmol/L Normal 22-30 [facility] Comment on above: Order Comment: Speci men Type: BLOOD SPECIMENOrdering Facility: [facility] Address: [address] [place] [address] Performed By: #### 2 4321-2 ####[facility] LABIA [id number] [address] [place] Creatinine [Mass/Vol] 0.87 mg/dL Normal 0.73-1.22 [facility] Comment on above: Order Comment: Speci men Type: BLOOD SPECIMENOrdering Facility: [facility] Address: [address] [place] [address] Performed By: #### 2 4321-2 ####[facility] LABIA [id number] [address] OF [facility] Creatinine and Glomerular filtration rate.predicted panel (S/P/Bld) 92 mL/min/1.73m??? Normal >=60 [facility] Comment on above: Order Comment: Speci men Type: BLOOD SPECIMENOrdering Facility: [facility] Address: [address] [place] [address] Result Comment: Sarah mated Glomerular Filtration Rate [...] actual GFR. Performed By: #### 2 4321-2 ####[facility] LABCLIA [id number] [place] [address] [place] Glucose [Mass/Vol] 109 mg/dL High 74-99 [facility] Comment on above: Order Comment: Speci men Type: BLOOD SPECIMENOrdering Facility: [facility] Address: [address] [place] [address] Result Comment: The [place] Diabetes Association (ADA) provides guidance for cutoff [...] Standards of Medical Care in Diabetes 2016, [place] [employer]. Diabetes Care. 2016.39(Suppl 1). Performed By: #### 2 4321-2 ####[facility] LABCLIA [id number] [place] [address] [place] Potassium [Moles/Vol] 4.2 mmol/L Normal 3.7-5.1 [facility] Comment on above: Order Comment: Speci men Type: BLOOD SPECIMENOrdering Facility: [facility] Address: [address] [place] [address] Performed By: #### 2 4321-2 ####[facility] LABCLIA [id number] [place] [address] [place] Sodium [Moles/Vol] 139 mmol/L Normal 136-144 [facility] Comment on above: Order Comment: Speci men Type: BLOOD SPECIMENOrdering Facility: [facility] Address: [address] [place] [address] Performed By: #### 2 4321-2 ####[facility] LABCLIA [id number] [place] [address] [place] Urea nitrogen [Mass/Vol] 19 mg/dL Normal 9-24 [facility] Comment on above: Order Comment: Speci men Type: BLOOD SPECIMENOrdering Facility: [facility] Address: [address] [place] [address] Performed By: #### 2 4321-2 ####[facility] LABCLIA [id number] [id number] OF [facility] CNDSon 09-04-2023 CNDS HNO ID: [id number] Author: Erin Paez DO Service: Orthopaedic Surgery [...] Your Medications These medications were sent to [facility] [address] [place] [address] Hours: Saturday-Saturday 7am-8pm, Saturday, Saturday and Holidays 9am-5pm acetaminophen 500 mg tablet aspirin, enteric coated 81 mg EC tablet docusate sodium 100 mg capsule oxyCODONE IR 5 mg immediate release tablet Follow-Up in 10-14 days Futu (more content not included)... Normal [facility] OPERATIVE NOon 09-04-2023 OPERATIVE NO HNO ID: [id number] Author: Shaji Bishpo MD Service: Orthopaedic Surgery Author Type: Physician Type: Operative Report Filed: 09/05/2023 3:54 PM Note Text: [facility] [address] [place] [address] [place] OPERATIVE NOTE PATIENT NAME: Ronnie Abebe AGE: [age] year old LOG ID: [id number] SURGERY DATE: 09/04/2023 SURGEON AND ASSISTANTS: Surgeon(s) [...] acid was used for blood conservation. The Jobzle robot was prepared and draped. The Robotic [...] incision. Di (more content not included)... Normal [facility] THERAPY NTon 09-04-2023 THERAPY NT HNO ID: [id number] Author: Margaret Goldman PT, DPT Service: Physical Therapy Author Type: Physical Therapist Type: Therapy (PT/OT/Speech/Resp) Filed: 09/04/2023 5:55 PM Note Text: Physical Therapy Evaluation SERVICE DATE: 09/04/2023 SERVICE TIME: 1645 to 1742 ROOM: [place] [address] Total Joint Replacement Discharge Readiness: Cleared from [...] and mobility-other Interventions Provided: Evaluation, Therapeutic Exercise (24392), Therapeutic Activity (07797), Gait Training (09138) $ Evaluation-Low (14178) Billed Units: 1 unit Therapeutic Exercise (25824) Treatment Minutes: 15 $ Therapeutic Exercise (43132) Billed Units: 1 unit Therapeutic Activity (39839) Treatment Minutes: 10 $ Therapeutic Activity (32223) Billed Units: 1 unit Gait Training (26857) Treatment Minutes: 15 $ Gait Training (19853) Billed Units: 1 unit Training AND Education [...] Cuing Visual (more content not included)... Normal [facility] Basic metabolic 2000 panelon 08-29-2023 Anion gap [Moles/Vol] 11 mmol/L 9 - 18 mmol/L [facility] Calcium [Mass/Vol] 9.4 mg/dL 8.5 - 10. 2 mg/dL [facility] Chloride [Moles/Vol] 106 mmol/L High 97 - 10 5 mmol/L [facility] CO2 [Moles/Vol] 22 mmol/L 22 - 30 mmol/L [facility] Creatinine [Mass/Vol] 1.40 mg/dL High 0.73 - 1.22 mg/dL [facility] Estimated Glomerular Filtration Rate 53 mL/min/1.73m Low >=60 mL/min/1.73m [facility] Glucose [Mass/Vol] 101 mg/dL High 74 - 99 mg/dL [facility] Potassium [Moles/Vol] 5.3 mmol/L High 3.7 - 5.1 mmol/L [facility] Sodium [Moles/Vol] 139 mmol/L 136 - 144 mmol/L [facility] Urea nitrogen [Mass/Vol] 29 mg/dL High 9 - 24 mg/dL [facility] Anion gap [Moles/Vol] 11 mmol/L Normal 9-18 [facility] Comment on above: Order Comment: Speci men Type: BLOOD SPECIMENOrdering Facility: [facility] Address: [address] [place] [address] Performed By: #### 2 4321-2, 69445-9, 2276-01 ####[facility] LABCLIA [id number] [place] [address] [place] Calcium [Mass/Vol] 9.4 mg/dL Normal 8.5-10.2 [facility] Comment on above: Order Comment: Speci men Type: BLOOD SPECIMENOrdering Facility: [facility] Address: [address] [place] [address] Performed By: #### 2 4321-2, 61595-2, 2276-01 ####[facility] LABCLIA [id number] [place] [address] [place] Chloride [Moles/Vol] 106 mmol/L High 97-105 [facility] Comment on above: Order Comment: Speci men Type: BLOOD SPECIMENOrdering Facility: [facility] Address: [address] [place] [address] Performed By: #### 2 4321-2, 90247-9, 2276-01 ####[facility] LABCLIA [id number] [place] [address] [place] CO2 [Moles/Vol] 22 mmol/L Normal 22-30 [facility] Comment on above: Order Comment: Speci men Type: BLOOD SPECIMENOrdering Facility: [facility] Address: [address] [place] [address] Performed By: #### 2 4321-2, 18194-0, 2276-01 ####[facility] LABCLIA [id number] [place] [address] [place] Creatinine [Mass/Vol] 1.40 mg/dL High 0.73-1.22 [facility] Comment on above: Order Comment: Speci men Type: BLOOD SPECIMENOrdering Facility: [facility] Address: [address] [place] [address] Performed By: #### 2 4321-2, 10242-2, 2276-4 ####[facility] LABIA [id number] [place] [address] [place] Creatinine and Glomerular filtration rate.predicted panel (S/P/Bld) 53 mL/min/1.73m??? Low >=60 [facility] Comment on above: Order Comment: Celina carmona Type: BLOOD SPECIMENOrdering Facility: [facility] Address: [address] [place] [address] Result Comment: Sarah mated Glomerular Filtration Rate [...] actual GFR. Performed By: #### 2 4321-2, 48280-7, 2276-4 ####[facility] LABIA [id number] [place] [address] [place] Glucose [Mass/Vol] 101 mg/dL High 74-99 [facility] Comment on above: Order Comment: Celina carmona Type: BLOOD SPECIMENOrdering Facility: [facility] Address: [address] [place] [address] Result Comment: The [place] [employer] Association (ADA) provides guidance for cutoff [...] Standards of Medical Care in Diabetes 2016, [place] [employer]. Diabetes Care. 2016.39(Suppl 1). Performed By: #### 2 4321-2, 71579-0, 6-4 ####[facility] LABCLIA [id number] [place] [address] [place] Potassium [Moles/Vol] 5.3 mmol/L High 3.7-5.1 [facility] Comment on above: Order Comment: Speci men Type: BLOOD SPECIMENOrdering Facility: [facility] Address: [address] [place] [address] Performed By: #### 2 4321-2, 40327-9, 2275- ####[facility] LABIA [id number] [place] [address] [place] Sodium [Moles/Vol] 139 mmol/L Normal 136-144 [facility] Comment on above: Order Comment: Speci men Type: BLOOD SPECIMENOrdering Facility: [facility] Address: [address] [place] [address] Performed By: #### 2 4321-2, 37991-8, 2275-4 ####[facility] [id number] [place] [address] [place] Urea nitrogen [Mass/Vol] 29 mg/dL High 9-24 [facility] Comment on above: Order Comment: Speci men Type: BLOOD SPECIMENOrdering Facility: [facility] Address: [address] [place] [address] Performed By: #### 2 4321-2, 51411-6, 2275-4 ####[facility] LABIA [id number] [place] [id number] [place] CBC W Auto Differential pane l (Bld)on 08-29-2023 Basophils (Bld) [#/Vol] 0.06 10*3/uL <0.11 k/uL [facility] Basophils/100 WBC (Bld) 0.7 % [facility] Differential cell count method Nom (Bld) Auto [facility] Eosinophils (Bld) [#/Vol] 0.32 10*3/uL <0.46 k/uL [facility] Eosinophils/100 WBC (Bld) 3.5 % [facility] Erythrocyte distribution width (RBC) [Ratio] 13.4 % 11.5 - 15.0 % [facility] Hematocrit (Bld) [Volume fraction] 43.2 % 39.0 - 51.0 % [facility] Hemoglobin (Bld) [Mass/Vol] 13.3 g/dL 13.0 - 17.0 g/dL [facility] Immature granulocytes (Bld) [#/Vol] 0.04 10*3/uL <0.10 k/uL [facility] Immature granulocytes/100 WBC (Bld) 0.4 % [facility] Lymphocytes (Bld) [#/Vol] 2.10 10*3/uL 1.00 - 4.00 k/uL [facility] Lymphocytes/100 WBC (Bld) 22.9 % [facility] MCH (RBC) [Entitic mass] 31.2 pg 26.0 - 34.0 pg [facility] MCHC (RBC) [Mass/Vol] 30.8 g/dL 30.5 - 36.0 g/dL [facility] MCV (RBC) [Entitic vol] 101.4 fL High 80.0 - 100.0 fL [facility] Monocytes (Bld) [#/Vol] 1.16 10*3/uL High <0.87 k/uL [facility] Monocytes/100 WBC (Bld) 12.7 % [facility] Neutrophils (Bld) [#/Vol] 5.48 10*3/uL 1.45 - 7.50 k/uL [facility] Neutrophils/100 WBC (Bld) 59.8 % [facility] Nucleated RBC (Bld) [#/Vol] <0.01 k/uL [facility] Nucleated RBC/100 WBC (Bld) [Ratio] 0.0 /100 WBC [facility] Platelet mean volume (Bld) [Entitic vol] 10.4 fL 9.0 - 12.7 fL [facility] Platelets (Bld) [#/Vol] 283 10*3/uL 150 - 400 k/uL [facility] RBC (Bld) [#/Vol] 4.26 10*6/uL 4.20 - 6.0 0 m/uL [facility] WBC (Bld) [#/Vol] 9.16 10*3/uL 3.70 - 11. 00 k/uL [facility] Basophils (Bld) [#/Vol] 0.06 10*3/uL Normal <0.11 [facility] Comment on above: Order Comment: Speci men Type: BLOOD SPECIMENOrdering Facility: [facility] Address: [address] [place] [address] Performed By: #### 5 7021-8 ####[facility] LABCLIA [id number] [place] [address] [place] Basophils/100 WBC (Bld) 0.7 % Normal [facility] Comment on above: Order Comment: Speci men Type: BLOOD SPECIMENOrdering Facility: [facility] Address: [address] [place] [address] Performed By: #### 5 7021-8 ####[facility] LABCLIA [id number] [place] [address] [place] Differential cell count method Nom (Bld) Auto Normal [facility] Comment on above: Order Comment: Speci men Type: BLOOD SPECIMENOrdering Facility: [facility] Address: [address] [place] [address] Performed By: #### 5 7021-8 ####[facility] LABCLIA [id number] [place] [address] [place] Eosinophils (Bld) [#/Vol] 0.32 10*3/uL Normal <0.46 [facility] Comment on above: Order Comment: Speci men Type: BLOOD SPECIMENOrdering Facility: [facility] Address: [address] [place] [address] Performed By: #### 5 7021-8 ####[facility] LABCLIA [id number] [place] [address] [place] Eosinophils/100 WBC (Bld) 3.5 % Normal [facility] Comment on above: Order Comment: Speci men Type: BLOOD SPECIMENOrdering Facility: [facility] Address: [address] [place] [address] Performed By: #### 5 7021-8 ####[facility] LABIA [id number] [place] [address] [place] Erythrocyte distribution width (RBC) [Ratio] 13.4 % Normal 11.5-15.0 [facility] Comment on above: Order Comment: Speci men Type: BLOOD SPECIMENOrdering Facility: [facility] Address: [address] [place] [address] Performed By: #### 5 7021-8 ####[facility] LABIA [id number] [place] [address] [place] Hematocrit (Bld) [Volume fraction] 43.2 % Normal 39.0-51.0 [facility] Comment on above: Order Comment: Speci men Type: BLOOD SPECIMENOrdering Facility: [facility] Address: [address] [place] [address] Performed By: #### 5 7021-8 ####[facility] LABIA [id number] [place] [address] [place] Hemoglobin (Bld) [Mass/Vol] 13.3 g/dL Normal 13.0-17.0 [facility] Comment on above: Order Comment: Speci men Type: BLOOD SPECIMENOrdering Facility: [facility] Address: [address] [place] [address] Performed By: #### 5 7021-8 ####[facility] LABIA [id number] [place] [address] [place] Immature granulocytes (Bld) [#/Vol] 0.04 10*3/uL Normal <0.10 [facility] Comment on above: Order Comment: Speci men Type: BLOOD SPECIMENOrdering Facility: [facility] Address: [address] [place] [address] Performed By: #### 5 7021-8 ####[facility] LABIA [id number] [place] [address] [place] Immature granulocytes/100 WBC (Bld) 0.4 % Normal [facility] Comment on above: Order Comment: Speci men Type: BLOOD SPECIMENOrdering Facility: [facility] Address: [address] [place] [address] Performed By: #### 5 7021-8 ####[facility] LABCLIA [id number] [place] [address] [place] Lymphocytes (Bld) [#/Vol] 2.10 10*3/uL Normal 1.00-4.00 [facility] Comment on above: Order Comment: Speci men Type: BLOOD SPECIMENOrdering Facility: [facility] Address: [address] [place] [address] Performed By: #### 5 7021-8 ####[facility] LABCLIA [id number] [place] [address] [place] Lymphocytes/100 WBC (Bld) 22.9 % Normal [facility] Comment on above: Order Comment: Speci men Type: BLOOD SPECIMENOrdering Facility: [facility] Address: [address] [place] [address] Performed By: #### 5 7021-8 ####[facility] LABCLIA [id number] [place] [address] [place] MCH (RBC) [Entitic mass] 31.2 pg Normal 26.0-34.0 [facility] Comment on above: Order Comment: Speci men Type: BLOOD SPECIMENOrdering Facility: [facility] Address: [address] [place] [address] Performed By: #### 5 7021-8 ####[facility] LABCLIA [id number] [place] [address] [place] MCHC (RBC) [Mass/Vol] 30.8 g/dL Normal 30.5-36.0 [facility] Comment on above: Order Comment: Speci men Type: BLOOD SPECIMENOrdering Facility: [facility] Address: [address] [place] [address] Performed By: #### 5 7021-8 ####[facility] LABIA [id number] [place] [address] [place] MCV (RBC) [Entitic vol] 101.4 fL High 80.0-100.0 [facility] Comment on above: Order Comment: Speci men Type: BLOOD SPECIMENOrdering Facility: [facility] Address: [address] [place] [address] Performed By: #### 5 7021-8 ####[facility] LABIA [id number] [place] [address] [place] Monocytes (Bld) [#/Vol] 1.16 10*3/uL High <0.87 [facility] Comment on above: Order Comment: Speci men Type: BLOOD SPECIMENOrdering Facility: [facility] Address: [address] [place] [address] Performed By: #### 5 7021-8 ####[facility] LABIA [id number] [place] [address] [place] Monocytes/100 WBC (Bld) 12.7 % Normal [facility] Comment on above: Order Comment: Speci men Type: BLOOD SPECIMENOrdering Facility: [facility] Address: [address] [place] [address] Performed By: #### 5 7021-8 ####[facility] LABIA [id number] [place] [address] [place] Neutrophils (Bld) [#/Vol] 5.48 10*3/uL Normal 1.45-7.50 [facility] Comment on above: Order Comment: Speci men Type: BLOOD SPECIMENOrdering Facility: [facility] Address: [address] [place] [address] Performed By: #### 5 7021-8 ####[facility] LABCLIA [id number] [place] [address] [place] Neutrophils/100 WBC (Bld) 59.8 % Normal [facility] Comment on above: Order Comment: Speci men Type: BLOOD SPECIMENOrdering Facility: [facility] Address: [address] [place] [address] Performed By: #### 5 7021-8 ####[facility] LABCLIA [id number] [place] [address] [place] Nucleated RBC (Bld) [#/Vol] 10*3/uL Normal <0.01 [facility] Comment on above: Order Comment: Speci men Type: BLOOD SPECIMENOrdering Facility: [facility] Address: [address] [place] [address] Performed By: #### 5 7021-8 ####[facility] LABCLIA [id number] [place] [address] [place] Nucleated RBC/100 WBC (Bld) [Ratio] 0.0 /100 WBC Normal [facility] Comment on above: Order Comment: Speci men Type: BLOOD SPECIMENOrdering Facility: [facility] Address: [address] [place] [address] Performed By: #### 5 7021-8 ####[facility] LABCLIA [id number] [place] [address] [place] Platelet mean volume (Bld) [Entitic vol] 10.4 fL Normal 9.0-12.7 [facility] Comment on above: Order Comment: Speci men Type: BLOOD SPECIMENOrdering Facility: [facility] Address: [address] [place] [address] Performed By: #### 5 7021-8 ####[facility] LABCLIA [id number] [place] [address] [place] Platelets (Bld) [#/Vol] 283 10*3/uL Normal 150-400 [facility] Comment on above: Order Comment: Speci men Type: BLOOD SPECIMENOrdering Facility: [facility] Address: [address] [place] [address] Performed By: #### 5 7021-8 ####[facility] LABIA [id number] [place] [address] [place] RBC (Bld) [#/Vol] 4.26 10*6/uL Normal 4.20-6.00 [facility] Comment on above: Order Comment: Speci men Type: BLOOD SPECIMENOrdering Facility: [facility] Address: [address] [place] [address] Performed By: #### 5 7021-8 ####[facility] LABIA [id number] [place] [address] [place] WBC (Bld) [#/Vol] 9.16 10*3/uL Normal 3.70-11.00 [facility] Comment on above: Order Comment: Speci men Type: BLOOD SPECIMENOrdering Facility: [facility] Address: [address] [place] [address] Performed By: #### 5 7021-8 ####[facility] LABIA [id number] [place] [address] [place] KNEE WO IVCON RIGHTon [facility] CT KNEE WO IVCON RTon 2022 CT KNEE WO IVCON RT * * *Final Report* * * DATE OF EXAM: Aug 29 2023 10:03AM [place] [id number] - CT KNEE WO IVCON RT / [...] Impression: Knee Osteoarthritis. No other significant abnormality. Bed Maker: PSCB Transcribe Date/Time: Aug 29 2023 10:39A Dictated by : LOCO CHO MD This examination was interpreted and the report reviewed and electronically signed by: DIAZ FAN MD on Aug 29 2023 10:44AM EST [id number] Normal [facility] ECG COMPLETEon 08-29-2023 ECG COMPLETE Ventricular Rate : 5 6 BPM Atrial Rate : 56 BPM P-R Interval : 168 ms QRS Duration : 78 ms Q-T Interval : 432 ms QTC Calculation(Bazett) : 416 ms Calculated P [place] : 35 degrees Calculated R [place] : -14 degrees Calculated T [place] : 5 degrees SINUS BRADYCARDIA WITH OCCASIONAL PREMATURE VENTRICULAR COMPLEXES OTHERWISE NORMAL ECG Confirmed by KAYLIE ESPAÑA MD ([id number]) on 09/02/2023 4:32:59 PM NAME : RONNIE ABEBE PID : [id number] : 1950 Gender : Male Race : ORD : [id number] Procedure Date : Aug 29 2023 08:30:40 [...] BISHOP Acquired by : ISABELLE LACEY Normal [facility] FERRITIN BLDon 08-29-2023 Ferritin [Mass/Vol] 266.0 ng/mL 30.3 - 5 65.7 ng/mL [facility] Ferritin SerPl-mCncon 2022 Ferritin [Mass/Vol] 266.0 ng/mL Normal 30.3-565.7 [facility] Comment on above: Order Comment: Speci men Type: BLOOD SPECIMENOrdering Facility: [facility] Address: [address] [place] [address] Performed By: #### 2 4321-2, 54328-1, 2276-4 ####[facility] LABCLIA [id number] [place] [id number] [place] HISTORY PHYSICALon 3 HISTORY PHYSICAL HNO ID: [id number] Author: Dwain Mcintosh APRN.KEYONNA Service: ? Author Type: Nurse Practitioner Type: HANDP Filed: 08/30/2023 11:30 AM Note Text: HISTORY AND PHYSICAL EXAMINATION SERVICE DATE: 08/29/2023 SERVICE TIME: 7:41 AM PRIMARY CARE PHYSICIAN: Merline Fuller MD REASON FOR VISIT: Ronnie Abebe is a 73 year old male who is scheduled for RIGHT ROBOTIC ASSISTED TOTAL KNEE ARTHROPLASTY on 09/04/2023 at [facility] at the request of Dr. Shaji Bishop [...] Pulmonary HTN, Dilated aorta. Negative for DVT/PE, [place], Cardiac surgery or stents. Denies current chest [...] tests revi (more content not included)... Normal [facility] Iron and Iron binding capaci ty panelon 08-29-2023 Iron [Mass/Vol] 43 ug/dL 41 - 186 ug/dL [facility] Iron binding capacity [Mass/Vol] 308 ug/dL 232 - 386 ug/dL [facility] Iron/TIBC [Molar ratio] 14.0 % Low 15.0 - 57.0 % [facility] Iron [Mass/Vol] 43 ug/dL Normal 41-186 [facility] Comment on above: Order Comment: Speci men Type: BLOOD SPECIMENOrdering Facility: [facility] Address: [address] [place] [address] Performed By: #### 2 4321-2, 91630-2, 2276-01 ####[facility] LABCLIA [id number] [place] [address] [place] Iron binding capacity [Mass/Vol] 308 ug/dL Normal 232-386 [facility] Comment on above: Order Comment: Speci men Type: BLOOD SPECIMENOrdering Facility: [facility] Address: [address] [place] [address] Performed By: #### 2 4321-2, 65286-0, 2276-01 ####[facility] LABCLIA [id number] [place] [id number] [place] Iron/TIBC [Molar ratio] 14.0 % Low 15.0-57.0 [facility] Comment on above: Order Comment: Speci men Type: BLOOD SPECIMENOrdering Facility: [facility] Address: [address] [place] [address] Performed By: #### 2 4321-2, 67445-8, 2276-01 ####[facility] LABCLIA [id number] [address] [place] TYPE AND SCREEN,30 DAYon ABO A Normal [facility] Comment on above: Order Comment: Speci men Type: BLOOD SPECIMENOrdering Facility: [facility] Address: [address] [place] [address] Performed By: #### T SCR30 ####[facility] BANKCLIA [id number] [address] [place] HISTORICAL AB SCR STATUS Negative Normal [facility] Comment on above: Order Comment: Speci men Type: BLOOD SPECIMENOrdering Facility: [facility] Address: [address] [place] [address] Performed By: #### T SCR30 ####[facility] BLO[facility] BANKCLIA [id number] [address] [place] Rh Nom (Bld) Positive Normal [facility] Comment on above: Order Comment: Speci men Type: BLOOD SPECIMENOrdering Facility: [facility] Address: [address] [place] [address] Performed By: #### T SCR30 ####[facility] BLOOD BANKCLIA [id number] [address] [place] XR KNEE 4V [...] RIGHT KNEE SEVERE IN THE MEDIAL COMPARTMENT Bed Maker: VI Transcribe Date/Time: Aug 29 2023 9:43A Dictated by : ADOLFO MAYNARD MD This examination was interpreted and the report reviewed and electronically signed by: ADOLFO MAYNARD MD on Aug 29 2023 9:44AM EST [id number] Normal [facility] XR KNEE GENERAL 4V AP BOTH/P A BOTH/LAT/MERC RIGHTon 08-29-2023 [facility] CNPNon 08-21-2023 CNPN Telephone (ORTHMN) RONNIE ABEBE ([id number]) 1950 M Date Time Provider Department 08/21/23 [...] min Stress: No Stress Concern Present (08/21/2023) [employer] [place] [employer] - Occupational Stress Questionnaire Feeling of Stress : Only a little Social Connections: Socially Integrated (08/21/2023) Social Connection and Isolation Panel [NHANES] Frequency of Communication with Friends and Family: More than three times a week Frequency of Social Gatherings with Friends and Family: Once a week Attends Rastafari Services: 1 to 4 times per year [...] Year: No Utilities: Not At Risk (08/21/2023) [facility] Utilities Threatened with loss of utilities: No Area Deprivation Index: Medium Risk (04/29/2023) Area Deprivation Index National Score (1-100), lower number is lower risk: 73 State Score (1-10), lower number is lower risk: 6 Data from: https://www.olga lidia coombs.medicine.[facility] [place]/. Last address used for calculation: [address] [place] [address] Equipment: Do you currently use any equipment [...] joint re (more content not included)... Normal [facility] CNOVon 06-07-2023 CNOV Office Visit (ORTHMN ) RONNIE ABEBE ([id number]) 1950 [place] Date Time Provider Department 06/07/23 [...] Last 180 days 05/07/23 Shaji Bishop MD, [id number] Primary osteoarthritis of left knee, Admission (Discharged) [...] post-operative pain [G89.18] Order(s):CONSULT TO PHYSICAL THERAPY [9018] Order #: [id number]: 1 FUTURE meloxicam (MOBIC) 15 mg tabletTake [...] mouth once (more content not included)... Normal [facility] XR KNEE 3V AP/LAT/MERCHANT L Ton 06-07-2023 [...] Expected postsurgical appearance. No other significant abnormality. Bed Maker: VI Transcribe Date/Time: Jun 07 2023 9:37A Dictated by : JAMEL RICKETTS MD This examination was interpreted and the report reviewed and electronically signed by: JAMEL RICKETTS MD on Jun 07 2023 9:38AM EST [id number] Normal [facility] XR KNEE POST OP 3V AP/LAT/ME RCHANT LEFTon 06-07-2023 [facility] Charissa 05-09-2023 SHAISTA Telephone (ORTHMN) RONNIE ABEBE ([id number]) 1950 M Date Time Provider Department 05/09/23 [...] Toprol but unsure of the dose. Audra aCrl Ma Problem List As Of Date 05/09/2023 Noted Resolved Malignant neoplasm of prostate [C61] 08/20/2011 Hypertension [I10] 11/13/2011 Hyperlipidemia [E78.5] 11/13/2011 GERD (gastroesophageal reflux disease) [K21.9] 11/13/2011 Arthritis [M19.90] 11/13/2011 Primary osteoarthritis of left knee [M17.12] 05/07/2023 Encounter Status:Closed by NICOLE MEEKS RN on 05/09/23 [facility] ANES POSTPROC EVALon 023 ANES POSTPROC EVAL HNO ID: [id number] Author: Vineet Martinez MD Service: ? Author Type: Anesthesiologist Type: Anesthesia Postprocedure Evaluation Filed: 05/07/2023 2:00 PM Note Text: POST ANESTHESIA EVALUATION NOTE : 1950 Procedure Summary Date: 05/07/23 [address] Start: 822 Anesthesia Stop: 1131 [...] May 07, 2023 TIME: 11:58 AM CSN: [id number] Normal [facility] ANES PRE-OPon 05-07-2023 ANES PRE-OP HNO ID: [id number] Author: Vineet Hensley MD Service: ? Author Type: Anesthesiologist Type: Anesthesia Preprocedure Evaluation Filed: 05/07/2023 8:36 AM Note Text: ANESTHESIOLOGY DAY OF SURGERY NOTE : 1950 Procedure Information Anesthesia Start Date/Time: 05/07/23822 Procedure: ROBOTIC ASSISTED TOTAL KNEE ARTHROPLASTY (Left: Knee) Location: [address] Surgeons: Shaji Bishop MD Estimated body [...] and consent discussed: yes. Patient / Responsible Republican agrees to proceed: yes Patient / Surrogate [...] May 07, 2023 TIME: 8:36 AM CSN: [id number] [facility] BRIEF OP NOTon 05-07-2023 BRIEF OP NOT HNO ID: [id number] Author: Blanco Maza MD Service: Orthopaedic Surgery Author Type: Resident Type: Brief Op Note Filed: 05/07/2023 11:17 AM Note Text: BRIEF OPERATIVE / PROCEDURE NOTE LOG ID: [id number] SURGERY/PROCEDURE DATE: 05/07/2023 INCISION/PROCEDURE START TIME: 9:00 AM INCISION CLOSE/PROCEDURE END TIME: 11:10 AM SURGEON(S)/PROCEDURALI ST(S) AND GERMINATION TESTING MANAGER(S): Surgeon(s) and Role: * Shaji Bishop MD - Primary * Blanco Meyer MD - Resident - Assisting * Malcom Azul MD - Fellow Physician Electric Screw Driver Operator: Luma Garcia PA-C Or Nurse Manager: Kaden Raman (), SURGERY/PROCEDURE(S): Left robotic-assisted total knee arthroplasty ANESTHESIA: Spinal FINDINGS: Left knee osteoarthritis ESTIMATED BLOOD LOSS: 100 mls SPECIMENS: None COMPLICATIONS: None CLOSURE TECHNIQUE: Primary PRE-OP/PRE-PROCEDURE DIAGNOSIS: Left knee osteoarthritis POST-OP/POST-PROCEDURE DIAGNOSIS: Same as Preop SIGNATURE: Blanco Maza MD PATIENT NAME: Ronnie Abebe DATE: May 07, 2023 TIME: 11:16 AM [facility] HNO ID: [id number] Author: Malcom Azul MD Service: Orthopaedic Surgery [...] The patient was electively admitted to the [facility] on 05/07/2023. Surgery was scheduled and [...] May 07, 2023 TIME: 8:12 AM PAGER: [phone] Normal [facility] CONSULTon 05-07-2023 CONSULT HNO ID: [id number] Author: Michelet Hsu MD Service: Anesthesiology Author [...] Glucosamine Sulfa (more content not included)... Normal [facility] NURSING PROGon 05-07-2023 NURSING PROG HNO ID: [id number] Author: Raj Jarquin RN Service: ? Author Type: Registered Nurse Type: Nursing Progress Note Filed: 05/07/2023 12:38 PM Note Text: Admission/Transfer Note PATIENT NAME: Ronnie Abebe Patient Location: M081 006/M081-06 Room: [place] [address] ([facility]-06) Patient admitted from PACU via bed in stable condition. Actions taken: Patient oriented to room, call light function, prescribed activities, and Patient rights. Patient belongings with patient. This note was completed by: Raj Enrique [facility] OPERATIVE NOon 05-07-2023 OPERATIVE NO HNO ID: [id number] Author: Shaji Bishop MD Service: Orthopaedic Surgery Author Type: Physician Type: Operative Report Filed: 05/08/2023 8:59 AM Note Text: [place] [address] [place] OPERATIVE NOTE PATIENT NAME: Ronnie Abebe AGE: [age] year old LOG ID: [id number] SURGERY DATE: 05/07/2023 SURGEON AND ASSISTANTS: Surgeon(s) [...] acid was used for blood conservation. The Jobzle robot was prepared and draped. The Robotic [...] skin and (more content not included)... Normal [facility] THERAPY NTon 05-07-2023 THERAPY NT HNO ID: [id number] Author: Valeria January, PT Service: Physical Therapy Author Type: Physical Therapist Type: Therapy (PT/OT/Speech/Resp) Filed: 05/07/2023 2:48 PM Note Text: Physical Therapy Evaluation SERVICE DATE: 05/07/2023 SERVICE TIME: 1300 to 1423 ROOM: [place] [address] Total Joint Replacement Discharge Readiness: Cleared from [...] Family Education/Traini (more content not included)... Normal [facility] TYPE + SCREENon 05-07-2023 ABO A Normal [facility] Comment on above: Order Comment: Speci men Type: BLOOD SPECIMENOrdering Facility: [facility] Address: [address] [place] [address] Performed By: #### T SCR ####CC MAIN BLOOD BANKCLIA [id number] [address] HISTORICAL AB SCR STATUS Negative Normal [facility] Comment on above: Order Comment: Speci men Type: BLOOD SPECIMENOrdering Facility: [facility] Address: [address] [place] [address] Performed By: #### T SCR ####CC MAIN BLOOD BANKCLIA [id number] [address] Rh Nom (Bld) Positive Normal [facility] Comment on above: Order Comment: Speci men Type: BLOOD SPECIMENOrdering Facility: [facility] Address: [address] [place] [address] Performed By: #### T SCR ####CC MAIN BLOOD BANKIA [id number] [address] TYPE AND SCREEN EXPIRATION 05/10/2023 23:59 Normal [facility] Comment on above: Order Comment: Speci men Type: BLOOD SPECIMENOrdering Facility: [facility] Address: [address] [place] [address] Performed By: #### T SCR ####CC MAIN BLOOD BANKCLIA [id number] [address] CNPLianna 05-06-2023 KEYONNAN Telephone (ORTHGA) MISRONNIE ([id number]) 1950 M Date Time Provider Department 05/06/23 NICOLE MEEKS During your visit today, we recorded the following information about you: Nicole Meeks RN 05/06/2023 3:29 PM Signed Spoke with patient and informed them of arrival time of 5:00am for surgery tomorrow with Dr. Bishop. Requested patient to report to [facility]-9 at that time. Reminded patient to [...] by NICOLE MEEKS RN on 05/06/23 Normal [facility] ECHOon 04-30-2023 Echocardiography Echocardiography Report: Transthoracic Echo [facility] J35 Date of service: 04/30/2023 11:14:08 AM MANAGER Ordering physician: VALERIA FARMER Indication: Pre Op [...] * * Final * * * CC [email or web address] Medical Image : [id number] sSISUID Normal [facility] Albumin SerPl-mCncon 023 Albumin [Mass/Vol] 4.2 g/dL Normal 3.9-4.9 [facility] Comment on above: Order Comment: Speci men Type: BLOOD SPECIMENOrdering Facility: [facility] Address: [address] [place] [address] Performed By: #### 2 4323-8, 1751-7, 68919-4, 2276-4 ####[facility] LABCLIA [id number] [place] [address] [place] CBC W Auto Differential pane l (Bld)on 04-29-2023 Basophils (Bld) [#/Vol] 0.05 10*3/uL Normal <0.11 [facility] Comment on above: Order Comment: Winstoni kristine Type: BLOOD SPECIMENOrdering Facility: [facility] Address: [address] [place] [address] Performed By: #### 5 7021-8, 12614-4 ####[facility] LABCLIA [id number] [place] [address] [place] Basophils/100 WBC (Bld) 0.5 % Normal [facility] Comment on above: Order Comment: Celina carmona Type: BLOOD SPECIMENOrdering Facility: [facility] Address: [address] [place] [address] Performed By: #### 5 7021-8, 07539-5 ####[facility] LABCLIA [id number] [place] [address] [place] Differential cell count method Nom (Bld) Auto Normal [facility] Comment on above: Order Comment: Speci men Type: BLOOD SPECIMENOrdering Facility: [facility] Address: [address] [place] [address] Performed By: #### 5 7021-8, 19718-4 ####[facility] LABCLIA [id number] [place] [address] [place] Eosinophils (Bld) [#/Vol] 0.17 10*3/uL Normal <0.46 [facility] Comment on above: Order Comment: Speci men Type: BLOOD SPECIMENOrdering Facility: [facility] Address: [address] [place] [address] Performed By: #### 5 7021-8, 12893-4 ####[facility] LABIA [id number] [place] [address] [place] Eosinophils/100 WBC (Bld) 1.8 % Normal [facility] Comment on above: Order Comment: Speci men Type: BLOOD SPECIMENOrdering Facility: [facility] Address: [address] [place] [address] Performed By: #### 5 7021-8, 16313-6 ####[facility] LABCLIA [id number] [place] [address] [place] Erythrocyte distribution width (RBC) [Ratio] 12.8 % Normal 11.5-15.0 [facility] Comment on above: Order Comment: Speci men Type: BLOOD SPECIMENOrdering Facility: [facility] Address: [address] [place], [place] [address] Performed By: #### 5 7021-8, 60676-5 ####[facility] LABCLIA [id number] [place] [address] [place] Hematocrit (Bld) [Volume fraction] 44.8 % Normal 39.0-51.0 [facility] Comment on above: Order Comment: Speci men Type: BLOOD SPECIMENOrdering Facility: [facility] Address: [address] [place] [address] Performed By: #### 5 7021-8, 67963-0 ####[facility] LABCLIA [id number] [place] [address] [place] Hemoglobin (Bld) [Mass/Vol] 14.1 g/dL Normal 13.0-17.0 [facility] Comment on above: Order Comment: Speci men Type: BLOOD SPECIMENOrdering Facility: [facility] Address: [address] [place], [place] [address] Performed By: #### 5 7021-8, 04720-4 ####[facility] LABCLIA [id number] [place] [address] [place] Immature granulocytes (Bld) [#/Vol] 0.05 10*3/uL Normal <0.10 [facility] Comment on above: Order Comment: Speci men Type: BLOOD SPECIMENOrdering Facility: [facility] Address: [address] [place] [address] Performed By: #### 5 7021-8, 50314-4 ####[facility] LABCLIA [id number] [place] [address] [place] Immature granulocytes/100 WBC (Bld) 0.5 % Normal [facility] Comment on above: Order Comment: Speci men Type: BLOOD SPECIMENOrdering Facility: [facility] Address: [address] [place] [address] Performed By: #### 5 7021-8, 39988-5 ####[facility] LABCLIA [id number] [place] [address] [place] Lymphocytes (Bld) [#/Vol] 2.21 10*3/uL Normal 1.00-4.00 [facility] Comment on above: Order Comment: Speci men Type: BLOOD SPECIMENOrdering Facility: [facility] Address: [address] [place] [address] Performed By: #### 5 7021-8, 22474-2 ####[facility] LABIA [id number] [address] [place] Lymphocytes/100 WBC (Bld) 23.9 % Normal [facility] Comment on above: Order Comment: Speci men Type: BLOOD SPECIMENOrdering Facility: [facility] Address: [address] [place] [address] Performed By: #### 5 7021-8, 73131-8 ####[facility] LABIA [id number] [address] [place] MCH (RBC) [Entitic mass] 32.3 pg Normal 26.0-34.0 [facility] Comment on above: Order Comment: Speci men Type: BLOOD SPECIMENOrdering Facility: [facility] Address: [address] [place] [address] Performed By: #### 5 7021-8, 33313-2 ####[facility] LABIA [id number] [address] [place] MCHC (RBC) [Mass/Vol] 31.5 g/dL Normal 30.5-36.0 [facility] Comment on above: Order Comment: Speci men Type: BLOOD SPECIMENOrdering Facility: [facility] Address: [address] [place], [place] [address] Performed By: #### 5 7021-8, 21609-5 ####[facility] [id number] [address] [place] MCV (RBC) [Entitic vol] 102.5 fL High 80.0-100.0 [facility] Comment on above: Order Comment: Speci men Type: BLOOD SPECIMENOrdering Facility: [facility] Address: [address] [place] [address] Performed By: #### 5 7021-8, 33318-3 ####[facility] LABCLIA [id number] [place] [address] [place] Monocytes (Bld) [#/Vol] 0.95 10*3/uL High <0.87 [facility] Comment on above: Order Comment: Speci men Type: BLOOD SPECIMENOrdering Facility: [facility] Address: [address] [place] [address] Performed By: #### 5 7021-8, 33604-5 ####[facility] LABCLIA [id number] [place] [address] [place] Monocytes/100 WBC (Bld) 10.3 % Normal [facility] Comment on above: Order Comment: Speci men Type: BLOOD SPECIMENOrdering Facility: [facility] Address: [address] Performed By: #### 5 7021-8, 19927-3 ####[facility] LABCLIA [id number] [place] [address] [place] Neutrophils (Bld) [#/Vol] 5.80 10*3/uL Normal 1.45-7.50 [facility] Comment on above: Order Comment: Speci men Type: BLOOD SPECIMENOrdering Facility: [facility] Address: [address] [place] [address] Performed By: #### 5 7021-8, 31367-9 ####[facility] LABCLIA [id number] [place] [address] [place] Neutrophils/100 WBC (Bld) 63.0 % Normal [facility] Comment on above: Order Comment: Speci men Type: BLOOD SPECIMENOrdering Facility: [facility] Address: [address] Performed By: #### 5 7021-8, 25605-1 ####[facility] LABCLIA [id number] [place] [address] [place] Nucleated RBC (Bld) [#/Vol] 10*3/uL Normal <0.01 [facility] Comment on above: Order Comment: Speci men Type: BLOOD SPECIMENOrdering Facility: [facility] Address: [address] [place] [address] Performed By: #### 5 7021-8, 86042-8 ####[facility] LABCLIA [id number] [place] [address] [place] Nucleated RBC/100 WBC (Bld) [Ratio] 0.0 /100 WBC Normal [facility] Comment on above: Order Comment: Speci men Type: BLOOD SPECIMENOrdering Facility: [facility] Address: [address] [place], [place] [address] Performed By: #### 5 7021-8, 41253-1 ####[facility] LABIA [id number] [place] [address] [place] Platelet mean volume (Bld) [Entitic vol] 11.1 fL Normal 9.0-12.7 [facility] Comment on above: Order Comment: Speci men Type: BLOOD SPECIMENOrdering Facility: [facility] Address: [address] [place] [address] Performed By: #### 5 7021-8, 58229-1 ####[facility] LABIA [id number] [place] [address] [place] Platelets (Bld) [#/Vol] 272 10*3/uL Normal 150-400 [facility] Comment on above: Order Comment: Speci men Type: BLOOD SPECIMENOrdering Facility: [facility] Address: [address] [place], [place] [address] Performed By: #### 5 7021-8, 94585-6 ####[facility] LABIA [id number] [place] [address] [place] RBC (Bld) [#/Vol] 4.37 10*6/uL Normal 4.20-6.00 [facility] Comment on above: Order Comment: Speci men Type: BLOOD SPECIMENOrdering Facility: [facility] Address: [address] [place] [address] Performed By: #### 5 7021-8, 14616-2 ####[facility] LABCLIA [id number] [address] OF [facility] WBC (Bld) [#/Vol] 9.23 10*3/uL Normal 3.70-11.00 [facility] Comment on above: Order Comment: Speci men Type: BLOOD SPECIMENOrdering Facility: [facility] Address: [address] [place] [address] Performed By: #### 5 7021-8, 46021-6 ####[facility] LABCLIA [id number] [address] OF [facility] CNOVon 04-29-2023 CNOV Office Visit (ORTHMN ) RONNIE ABEBE ([id number]) 1950 Date Time Provider Department 04/29/23 10:00 [...] Joint Ar (more content not included)... Normal [facility] CT KNEE WO IVCON LEFTon - [facility] CT KNEE WO IVCON LTon 2022 CT KNEE WO IVCON LT * * *Final Report* * * DATE OF EXAM: Apr 29 2023 2:25PM [facility] 0083 - CT KNEE WO IVCON LT [...] is no unexpected acute or aggressive abnormality. Bed Maker: PSCB Transcribe Date/Time: Apr 29 2023 2:31P Dictated by : OSMAR ESPINOZA MD This examination was interpreted and the report reviewed and electronically signed by: OSMAR ESPINOZA MD on Apr 29 2023 2:34PM EST [id number] Normal [facility] Comprehensive metabolic 2000 panelon 04-29-2023 Albumin [Mass/Vol] 4.3 g/dL Normal 3.9-4.9 [facility] Comment on above: Order Comment: Speci men Type: BLOOD SPECIMENOrdering Facility: [facility] Address: [address] [place], [place] [address] Performed By: #### 2 4323-8, 1751-7, 94608-8, 2276-4 ####[facility] [id number] [place] [address] [place] ALP [Catalytic activity/Vol] 73 U/L Normal 38-113 [facility] Comment on above: Order Comment: Speci men Type: BLOOD SPECIMENOrdering Facility: [facility] Address: [address] [place], [place] [address] Performed By: #### 2 4323-8, 1751-7, 92874-9, 2276-4 ####[facility] LABIA [id number] [address] [place] ALT [Catalytic activity/Vol] 23 U/L Normal 10-54 [facility] Comment on above: Order Comment: Speci men Type: BLOOD SPECIMENOrdering Facility: [facility] Address: [address] [place] [address] Performed By: #### 2 4323-8, 1751-7, 62764-6, 2276-4 ####[facility] LABCLIA [id number] [place] [address] [place] Anion gap [Moles/Vol] 16 mmol/L Normal 9-18 [facility] Comment on above: Order Comment: Speci men Type: BLOOD SPECIMENOrdering Facility: [facility] Address: [address] [place] [address] Performed By: #### 2 4323-8, 1751-7, 86818-0, 6-4 ####[facility] LABCLIA [id number] [place] [address] [place] AST [Catalytic activity/Vol] 24 U/L Normal 14-40 [facility] Comment on above: Order Comment: Speci men Type: BLOOD SPECIMENOrdering Facility: [facility] Address: [address] [place] [address] Performed By: #### 2 4323-8, 1751-7, 19051-0, 2275-4 ####[facility] LABCLIA [id number] [place] [address] [place] Bilirubin [Mass/Vol] 0.6 mg/dL Normal 0.2-1.3 [facility] Comment on above: Order Comment: Speci men Type: BLOOD SPECIMENOrdering Facility: [facility] Address: [address] [place], [place] [address] Performed By: #### 2 4323-8, 1751-7, 70080-0, 6-4 ####[facility] LABCLIA [id number] [place] [address] [place] Calcium [Mass/Vol] 9.3 mg/dL Normal 8.5-10.2 [facility] Comment on above: Order Comment: Speci men Type: BLOOD SPECIMENOrdering Facility: [facility] Address: [address] [place], [place] [address] Performed By: #### 2 4323-8, 1751-7, 33021-3, 2276-4 ####[facility] LABCLIA [id number] [place] [address] [place] Chloride [Moles/Vol] 104 mmol/L Normal 97-105 [facility] Comment on above: Order Comment: Speci men Type: BLOOD SPECIMENOrdering Facility: [facility] Address: [address] [place] [address] Performed By: #### 2 4323-8, 1751-7, 76762-1, 2276-4 ####[facility] LABCLIA [id number] [place] [address] [place] CO2 [Moles/Vol] 17 mmol/L Low 22-30 [facility] Comment on above: Order Comment: Speci men Type: BLOOD SPECIMENOrdering Facility: [facility] Address: [address] [place] [address] Performed By: #### 2 4323-8, 1751-7, 21140-0, 6-4 ####[facility] LABCLIA [id number] [place] [address] [place] Creatinine [Mass/Vol] 1.05 mg/dL Normal 0.73-1.22 [facility] Comment on above: Order Comment: Speci men Type: BLOOD SPECIMENOrdering Facility: [facility] Address: [address] [place], [place] [address] Performed By: #### 2 4323-8, 175-7, 62846-1, 6-4 ####[facility] LABCLIA [id number] [place] [address] [place] ESTIMATED GLOMERULAR FILTRATION RATE 75 mL/min/1.73m??? Normal >=60 [facility] Comment on above: Order Comment: Speci men Type: BLOOD SPECIMENOrdering Facility: [facility] Address: [address] [place] [address] Result Comment: Sarah mated Glomerular Filtration Rate [...] GFR. Performed By: #### 2 4323-8, 175-7, 48306-4, 6-4 ####[facility] LABIA [id number] [place] [id number] [place] Glucose [Mass/Vol] 84 mg/dL Normal 74-99 [facility] Comment on above: Order Comment: Celina carmona Type: BLOOD SPECIMENOrdering Facility: [facility] Address: [address] [place], [place] [address] Result Comment: The [place] [employer] (ADA) provides guidance for cutoff [...] Standards of Medical Care in Diabetes 2016, [place] [employer]. Diabetes Care. 2016.39(Suppl 1). Performed By: #### 2 4323-8, 1751-7, 76723-4, 6-4 ####[facility] LABCLIA [id number] [place] [id number] [place] Potassium [Moles/Vol] 5.2 mmol/L High 3.7-5.1 [facility] Comment on above: Order Comment: Celina carmona Type: BLOOD SPECIMENOrdering Facility: [facility] Address: [address] [place], [place] [address] Performed By: #### 2 4323-8, 1751-7, 94296-7, 2276-4 ####[facility] LABIA [id number] [place] [address] [place] Protein [Mass/Vol] 7.3 g/dL Normal 6.3-8.0 [facility] Comment on above: Order Comment: Speci men Type: BLOOD SPECIMENOrdering Facility: [facility] Address: [address] [place] [address] Performed By: #### 2 4323-8, 175-7, 19534-6, 6-4 ####[id number] [place] [address] [place] Sodium [Moles/Vol] 137 mmol/L Normal 136-144 [facility] Comment on above: Order Comment: Speci men Type: BLOOD SPECIMENOrdering Facility: [facility] Address: [address] [place] [address] Performed By: #### 2 4323-8, 175-7, 70079-8, 6-4 ####[facility] LABIA [id number] [place] [address] [place] Urea nitrogen [Mass/Vol] 23 mg/dL Normal 9-24 [facility] Comment on above: Order Comment: Speci men Type: BLOOD SPECIMENOrdering Facility: [facility] Address: [address] [place] [address] Performed By: #### 2 4323-8, 175-7, 46399-9, 6-4 ####[facility] LABIA [id number] [place] [address] [place] ECG COMPLETEon 04-29-2023 ECG COMPLETE Ventricular Rate : 5 6 BPM Atrial Rate : 56 BPM P-R Interval : 164 ms QRS Duration : 82 ms Q-T Interval : 468 ms QTC Calculation(Bazett) : 451 ms Calculated P [place] : 37 degrees Calculated R [place] : -8 degrees Calculated T [place] : 9 degrees SINUS BRADYCARDIA WITH FREQUENT PREMATURE VENTRICULAR COMPLEXES IN A PATTERN OF BIGEMINY * ABNORMAL ECG Confirmed by FAVIAN MALLORY MD ([id number]) on 05/01/2023 10:45:18 AM NAME : RONNIE ABEBE PID : [id number] : 1950 Gender : Male Race : ORD : [id number] Procedure Date : Apr 29 2023 11:56:39 Edit Date : May 01 2023 10:45:24 Diagnosis: SINUS BRADYCARDIA WITH FREQUENT PREMATURE VENTRICULAR COMPLEXES IN A PATTERN OF BIGEMINY * ABNORMAL ECG Confirmed by FAVIAN MALLORY MD ([id number]) on 05/01/2023 10:45:18 AM Test Reason : Location : 119 : A17 A17 Overread By : FAVIAN MALLORY MD Edited By : FAVIAN MALLORY MD Referred By : LUMA GARCIA Acquired by : ANTONIO WAKEFIELD Normal [facility] Ferritin SerPl-mCncon 2022 Ferritin [Mass/Vol] 346.0 ng/mL Normal 30.3-565.7 [facility] Comment on above: Order Comment: Speci men Type: BLOOD SPECIMENOrdering Facility: [facility] Address: [address] [place] [address] Performed By: #### 2 4323-8, 1751-7, 89619-9, 2276-4 ####[facility] LABCLIA [id number] [facility] [id number] [address] [place] Folate SerPl-mCncon 04-29-20 23 Folate [Mass/Vol] ng/mL Normal >4.7 [facility] Comment on above: Order Comment: Speci men Type: BLOOD SPECIMENOrdering Facility: [facility] Address: [address] [place] [address] Result Comment: A re sult of > 20 ng/mL is not necessarily indicative of a pathologic or treatable condition: it reflects a limitation of the test methodology. Assay reference range: 4.8 to 24.2 ng/mL. Suitable for detection of folate deficiency. Reference: Folate III (Folate III) [package insert V 1.0 Cypriot]. [facility], [place], [place]: August 2015. Performed By: #### 2 132-9, 2284-8 ####[facility] LABCLIA [id number] [place] [address] [place] HISTORY PHYSICALon HISTORY PHYSICAL HNO ID: [id number] Author: Ashleigh Serra MD Service: ? Author [...] fevers. 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 No neurological symptoms or problems. Respiratory: No history of current cough or dyspnea, or pneumonia in the past 6 weeks. No history of respiratory/pulmonary symptoms or problems. 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 Normal [facility] Iron and Iron binding capaci ty panelon 04-29-2023 Iron [Mass/Vol] 92 ug/dL Normal 41-186 [facility] Comment on above: Order Comment: Speci men Type: BLOOD SPECIMENOrdering Facility: [facility] Address: [address] [place], [place] [id number] Performed By: #### 2 4323-8, 1751-7, 09056-5, 6-4 ####[facility] LABCLIA [id number] [place] [address] [place] Iron binding capacity [Mass/Vol] 295 ug/dL Normal 232-386 [facility] Comment on above: Order Comment: Speci men Type: BLOOD SPECIMENOrdering Facility: [facility] Address: [address] [place] [id number] Performed By: #### 2 4323-8, 1751-7, 40940-8, 2275-4 ####[facility] LABCLIA [id number] [place] [id number] [place] Iron/TIBC [Molar ratio] 31.2 % Normal 15.0-57.0 [facility] Comment on above: Order Comment: Speci men Type: BLOOD SPECIMENOrdering Facility: [facility] Address: [address] [address] Performed By: #### 2 4323-8, 1751-7, 02130-8, 2276-4 ####[facility] LABCLIA [id number] [place] [address] [place] Retics #on 04-29-2023 Reticulocytes (Bld) [#/Vol] 0.97204 10*3/uL Normal 0.018-0.100 [facility] Comment on above: Order Comment: Speci men Type: BLOOD SPECIMENOrdering Facility: [facility] Address: [address] [place] [address] Performed By: #### 5 7021-8, 65929-1 ####[facility] LABCLIA [id number] [place] [address] [place] [facility] Reticulocytes (Bld) [#/Vol]o n 04-29-2023 Reticulocytes/100 RBC (Bld) 2.0 % Normal 0.4-2.0 [facility] Comment on above: Order Comment: Speci men Type: BLOOD SPECIMENOrdering Facility: [facility] Address: [address] [place] [address] Performed By: #### 5 7021-8, 39699-2 ####[facility] LABCLIA [id number] [place] [address] [place] Vit B12 SerPl-mCncon 023 Cobalamin (Vitamin B12) [Mass/Vol] 409 pg/mL Normal 232-1245 [facility] Comment on above: Order Comment: Speci men Type: BLOOD SPECIMENOrdering Facility: [facility] Address: [address] [place] [address] Performed By: #### 2 132-9, 2284-8 ####[facility] LABCLIA [id number] [place] [address] [place] CBC AUTO DIFFon 02-26-2023 BASO # 0.1 103/ul Normal 0.0-0.1 [facility] Comment on above: Performed By: #### C BC #### [facility] [address] [address] [address] Luci Christian Basophils/100 WBC (Bld) 0.5 % Normal 0.2-2.0 [facility] Comment on above: Performed By: #### C BC #### [facility] [address] [address] [address] Luci Christian EO # 0.3 103/ul Normal 0.0-0.7 [facility] Comment on above: Performed By: #### C BC #### [facility] [address] [place] [address] Dr. Luci Christian Eosinophils/100 WBC (Bld) 3.5 % Normal 0.9-7.0 [facility] Comment on above: Performed By: #### C BC #### [facility] [address] [place] [address] Dr. Luci Christian Erythrocyte distribution width (RBC) [Ratio] 12.6 % Normal 11.0-15.0 [facility] Comment on above: Performed By: #### C BC #### [facility] [address] [place] [address] Dr. Luci Christian Hematocrit (Bld) [Volume fraction] 46.5 % Normal 42.0-54.0 [facility] Comment on above: Performed By: #### C BC #### [facility] [address] [place] [address] Dr. Luci Christian Hemoglobin (Bld) [Mass/Vol] 14.9 g/dL Normal 14.0-18.0 [facility] Comment on above: Performed By: #### C BC #### [facility] [address] [place] [address] Dr. Luci Christian IG # 0.06 10e3/ul Critically high 0.00-0.03 [facility] Comment on above: Performed By: #### C BC #### [facility] [address] [place] [address] Dr. Luci Christian IG % 0.7 % Critically high 0.0-0.5 [facility] Comment on above: Performed By: #### C BC #### [facility] [address] [place] [address] Dr. Luci Christian LYMPH # 2.4 103/ul Normal 1.2-3.8 [facility] Comment on above: Performed By: #### C BC #### [facility] [address] [place] [address] Dr. Luci Christian Lymphocytes/100 WBC (Bld) 26.4 % Normal 20.5-60.0 [facility] Comment on above: Performed By: #### C BC #### [facility] [address] [place] [address] Dr. Luci Christian MANUAL DIFF REQ NO Normal [facility] Comment on above: Performed By: #### C BC #### [facility] [address] [place] [address] Dr. Luci Christian MCH (RBC) [Entitic mass] 32.6 pg Normal 25.9-34.0 [facility] Comment on above: Performed By: #### C BC #### [facility] [address] [place] [address] Dr. Luci Christian MCHC (RBC) [Mass/Vol] 32.0 g/dL Normal 29.9-35.2 [facility] Comment on above: Performed By: #### C BC #### [facility] [address] [place] [address] Dr. Luci Christian MCV (RBC) [Entitic vol] 101.8 fL Critically high 80.0-94.0 [facility] Comment on above: Performed By: #### C BC #### [facility] [address] [place] [address] Dr. Luci Christian MONO # 1.0 103/ul Critically high 0.3-0.8 [facility] Comment on above: Performed By: #### C BC #### [facility] [address] [place] [address] Dr. Luci Christian Monocytes/100 WBC (Bld) 10.6 % Normal 1.7-12.0 [facility] Comment on above: Performed By: #### C BC #### [facility] [address] [place] [address] Dr. Luci Christian NEUT # 5.4 103/ul Normal 1.4-6.5 [facility] Comment on above: Performed By: #### C BC #### [facility] [address] [place] [address] Dr. Luci Christian Neutrophils/100 WBC (Bld) 58.3 % Normal 43.0-75.0 [facility] Comment on above: Performed By: #### C BC #### [facility] [address] [place] [address] Dr. Luci Christian Platelet mean volume (Bld) [Entitic vol] 10.3 fL Normal 9.5-13.5 [facility] Comment on above: Performed By: #### C BC #### [facility] [address] [place] [address] Dr. Luci Christian PLT 273 103/ul Normal 150-450 [facility] Comment on above: Performed By: #### C BC #### [facility] [address] [place] [address] Dr. Luci Christian RBC 4.57 106/ul Critically low 4.70-6.10 [facility] Comment on above: Performed By: #### C BC #### [facility] [address] [place] [address] Dr. Luci Christian WBC 9.2 103/ul Normal 4.0-11.0 [facility] Comment on above: Performed By: #### C BC #### [facility] [address] [place] [address] Dr. Luci Christian FREE THYROXINE INDEX T7on FTI 2.31 Normal 1.30-4.50 [facility] Comment on above: Performed By: #### T 7, LIPID, CMP, TSH #### [facility] [address] [place] [address] Dr. Luci Christian T3U 34.0 % Normal 33.0-40.0 [facility] Comment on above: Performed By: #### T 7, LIPID, CMP, TSH #### [facility] [address] [address] [address] Luci Christian T4 [Mass/Vol] 6.80 ug/dL Normal 4.50-12.10 [facility] Comment on above: Performed By: #### T 7, LIPID, CMP, TSH #### [facility] [address] [address] [address] Luci Christian LIPID PROFILEon 02-26-2023 CHOL-HDL RATIO NORM SEE BELOW Normal [facility] Comment on above: Result Comment: 3.3 - 4.4 LOW RISK 4.4 - 7.1 AVERAGE RISK 7.1 - 11.0 MODERATE RISK >11.0 HIGH RISK Performed By: #### T 7, LIPID, CMP, TSH #### [facility] [address] [address] [address] Luci Christian Cholesterol [Mass/Vol] 165 mg/dL Normal <=200 [facility] Comment on above: Performed By: #### T 7, LIPID, CMP, TSH #### [facility] [address] [address] [address] Luci Christian Cholesterol in HDL [Mass/Vol] 56 mg/dL Normal 40-60 [facility] Comment on above: Performed By: #### T 7, LIPID, CMP, TSH #### [facility] [address] [address] [address] Luci Christian Cholesterol in LDL [Mass/Vol] 66.4 mg/dL Normal [facility] Comment on above: Performed By: #### T 7, LIPID, CMP, TSH #### [facility] [address] [address] [address] Luci Christian Cholesterol.total/Cho lesterol in HDL [Mass ratio] 2.9 {ratio} Normal [facility] Comment on above: Performed By: #### T 7, LIPID, CMP, TSH #### [facility] [address] [address] [address] Luci Christian HDL NORMAL > or = 60 mg/dl - LO W CARDIOVASCULAR RISK <40 mg/dl - HIGH CARDIOVASCULAR RISK Normal [facility] Comment on above: Performed By: #### T 7, LIPID, CMP, TSH #### [facility] [address] [address] [address] Luci Christian LDL CALC NORMAL SEE BELOW Normal [facility] Comment on above: Result Comment: <100 mg/dl OPTIMAL 100 - 129 mg/dl NEAR OR ABOVE OPTIMAL 130 - 159 mg/dl BORDERLINE HIGH 160 - 189 mg/dl HIGH >190 mg/dl VERY HIGH Performed By: #### T 7, LIPID, CMP, TSH #### [facility] [address] [address] [address] Luci Christian Triglyceride [Mass/Vol] 213 mg/dL Critically high <=150 [facility] Comment on above: Performed By: #### T 7, LIPID, CMP, TSH #### [facility] [address] [address] [address] Luci Christian VLDL CALC 42.6 mg/dL Normal [facility] Comment on above: Performed By: #### T 7, LIPID, CMP, TSH #### [facility] [address] [address] [address] Luci Christian OCC BLD IMMUNO SCREENon OCCULT BLOOD Negative Normal NEGATIVE [facility] Comment on above: Performed By: #### O BSCRN #### [facility] [address] [address] [address] Luci Christian PROF 14(COMP METB)on 023 Albumin [Mass/Vol] 3.7 g/dL Normal 3.4-5.0 [facility] Comment on above: Performed By: #### T 7, LIPID, CMP, TSH #### [facility] [address] [address] [address] Luci Christian Albumin/Globulin [Mass ratio] 0.8 {ratio} Normal [facility] Comment on above: Performed By: #### T 7, LIPID, CMP, TSH #### [facility] [address] [address] [address] Luci Christian ALP [Catalytic activity/Vol] 70 U/L Normal 46-116 [facility] Comment on above: Performed By: #### T 7, LIPID, CMP, TSH #### [facility] [address] [address] [address] Luci Christian ALT [Catalytic activity/Vol] 36 U/L Normal 16-63 [facility] Comment on above: Performed By: #### T 7, LIPID, CMP, TSH #### [facility] [address] [place] [address] Dr. Luci Christian Anion gap [Moles/Vol] 12.9 mmol/L Normal Th [facility] Comment on above: Performed By: #### T 7, LIPID, CMP, TSH #### [facility] [address] [place] [address] Dr. Luci Christian AST [Catalytic activity/Vol] 27 U/L Normal 15-37 [facility] Comment on above: Performed By: #### T 7, LIPID, CMP, TSH #### [facility] [address] [place] [address] Dr. Luci Christian Bilirubin [Mass/Vol] 0.6 mg/dL Normal 0.2-1.0 [facility] Comment on above: Performed By: #### T 7, LIPID, CMP, TSH #### [facility] [address] [place] [address] Dr. Luci Christian Calcium [Mass/Vol] 9.1 mg/dL Normal 8.5-10.1 [facility] Comment on above: Performed By: #### T 7, LIPID, CMP, TSH #### [facility] [address] [place] [address] Dr. Luci Christian Chloride [Moles/Vol] 104 mmol/L Normal 98-107 [facility] Comment on above: Performed By: #### T 7, LIPID, CMP, TSH #### [facility] [address] [place] [address] Dr. Luci Christian CO2 [Moles/Vol] 27.9 mmol/L Normal 21.0-32.0 [facility] Comment on above: Performed By: #### T 7, LIPID, CMP, TSH #### [facility] [address] [address] [address] Luci Christian Creatinine [Mass/Vol] 1.02 mg/dL Normal 0.70-1.30 [facility] Comment on above: Performed By: #### T 7, LIPID, CMP, TSH #### [facility] [address] [address] [address] Luci Christian EGFR-AF BOLIVIAN >60 Normal >=60 [facility] Comment on above: Performed By: #### T 7, LIPID, CMP, TSH #### [facility] [address] [address] [address] Luci Christian EGFR-NON AF BOLIVIAN >60 Normal >=60 [facility] Comment on above: Performed By: #### T 7, LIPID, CMP, TSH #### [facility] [address] [address] [address] Luci Christian Globulin (S) [Mass/Vol] 4.6 g/dL Normal [facility] Comment on above: Performed By: #### T 7, LIPID, CMP, TSH #### [facility] [address] [address] [address] Luci Christian Glucose [Mass/Vol] 98 mg/dL Normal 74-106 [facility] Comment on above: Performed By: #### T 7, LIPID, CMP, TSH #### [facility] [address] [address] [address] Luci Christian Potassium [Moles/Vol] 4.8 mmol/L Normal 3.5-5.1 [facility] Comment on above: Performed By: #### T 7, LIPID, CMP, TSH #### [facility] [address] [address] [address] Luci Christian Protein [Mass/Vol] 8.3 g/dL Critically high 6.4-8.[address] [facility] Comment on above: Performed By: #### T 7, LIPID, CMP, TSH #### [facility] [address] [address] [address] Luci Christian Sodium [Moles/Vol] 140 mmol/L Normal 136-145 [facility] Comment on above: Performed By: #### T 7, LIPID, CMP, TSH #### [facility] [address] [address] [address] Luci Christian Urea nitrogen [Mass/Vol] 19.0 mg/dL Critically high 7.0-18.0 [facility] Comment on above: Performed By: #### T 7, LIPID, CMP, TSH #### [facility] [address] [address] [address] Luci Christian Urea nitrogen/Creatinine [Mass ratio] 18.6 mg/mg Normal [facility] Comment on above: Performed By: #### T 7, LIPID, CMP, TSH #### [facility] [address] [address] [address] Luci Christian TSHon 02-26-2023 TSH 1.563 uIU/mL Normal 0.358-3.740 [facility] Comment on above: Performed By: #### T 7, LIPID, CMP, TSH #### [facility] [address] [address] [address] Luci Christian No Panel Informationon 02-01 [facility] Vital Signs Date Time Vital Sign Value Performing Clinician Radha ojeda 08-29-2023 07:27-0500 Body height 185.4 cm Pacc 6 Work Phone: [facility] 08-29-2023 07:27-0500 Body temperature 97.9 [degF] Pacc 6 Work Phone: [facility] 08-29-2023 07:27-0500 Body weight 96.34 kg Pacc 6 Work Phone: [facility] 08-29-2023 07:27-0500 Diastolic blood pressure 85 mm[Hg] Pacc 6 Work Phone: [facility] 08-29-2023 07:27-0500 Heart rate 64 /min Pacc 6 Work Phone: [facility] 08-29-2023 07:27-0500 Respiratory rate 18 /min Pacc 6 Work Phone: [facility] 08-29-2023 07:27-0500 SaO2% (BldA) [Mass fraction] 100 % Pacc 6 Work Phone: [facility] 08-29-2023 07:27-0500 Systolic blood pressure 139 mm[Hg] Pacc 6 Work Phone: [facility] 04-29-2023 13:02-0400 Body height 185.4 cm Pacc 8 Work Phone: [facility] 04-29-2023 13:02-0400 Body temperature 97.81 [degF] Pacc 8 Work Phone: [facility] 04-29-2023 13:02-0400 Body weight 97.98 kg Pacc 8 Work Phone: [facility] 04-29-2023 13:02-0400 Diastolic blood pressure 75 mm[Hg] Pacc 8 Work Phone: [facility] 04-29-2023 13:02-0400 Heart rate 61 /min Pacc 8 Work Phone: [facility] 04-29-2023 13:02-0400 SaO2% (BldA) [Mass fraction] 99 % Pacc 8 Work Phone: [facility] 04-29-2023 13:02-0400 Systolic blood pressure 126 mm[Hg] Pacc 8 Work Phone: [facility] 02-01-2023 14:03-0400 Body height 185.4 cm Luma Garcia PA-C Work Phone: [facility] 02-01-2023 14:03-0400 Body weight 96.16 kg Luma Garcia PA-C Work Phone: [facility] Encounters Encounter Date Encounter Type Care Provider Facility Start: 04-02-2024 End: 04-02-2024 Patient encounter procedure Shaji Bishop MD Work Phone: Orthopaedics Comment on above: S/P total knee arthr oplasty, right (Primary Dx); Status post left knee replacement Start: 04-02-2024 End: 04-02-2024 ambulatory SHAJI E EDNA Facility:[facility] Start: 04-02-2024 End: 04-02-2024 Subsequent hospital visit by physician Sameer Ortho [facility] Rej Work Phone: Radiology Comment on above: S/P total knee arthr oplasty, right [Z96.651] Start: 10-03-2023 End: 10-03-2023 Patient encounter procedure Luma Garcia PA-C Work Phone: Orthopaedics Comment on above: S/P total knee arthr oplasty, right (Primary Dx) Start: 10-03-2023 End: 10-03-2023 ambulatory LUMA GARCIA Facility:[facility] Start: 09-16-2023 Refill Luma Garcia PA-C Work Phone: Orthopaedics Comment on above: Refill Request Start: 09-09-2023 Telephone encounter Nicole Meeks RN Orthopaedics Comment on above: Post Op Refill Request Start: 09-05-2023 End: 09-05-2023 ambulatory MERLINEIVANA FULLER Facility:[facility] Start: 09-04-2023 End: 09-05-2023 ambulatory SHAJI E EDNA Facility:[facility] Start: 08-29-2023 End: 08-29-2023 ambulatory SHAJI E EDNA Facility:[facility] Start: 08-29-2023 End: 08-29-2023 Subsequent hospital visit by physician Ct 2 Main Qb (I-Stat) Radiology Comment on above: Primary osteoarthrit is of right knee [M17.11] Start: 08-29-2023 Encounter for other preprocedural examination MERLINE HOY [facility] Start: 08-29-2023 End: 08-29-2023 ambulatory MERLINE FULLER Facility:[facility] Start: 08-29-2023 End: 08-29-2023 Admission to establishment Pac Main 6 Work Phone: [facility] Start: 08-29-2023 End: 08-29-2023 Preprocedural examination done Pac Main 6 Work Phone: [facility] Work Phone: Start: 08-29-2023 End: 08-29-2023 ambulatory [facility] Main Work Phone: Pre Anesthesia Comment on above: Pre-operative examin ation (Primary Dx); Primary osteoarthritis of right knee; Chronic pain of right knee; Primary hypertension; Hyperlipidemia, unspecified hyperlipidemia type; Tricuspid valve insufficiency, unspecified etiology; Pulmonary hypertension (HCC); Dilation of aorta (HCC); Gastroesophageal reflux disease, unspecified whether esophagitis present; History of prostate cancer Start: 08-21-2023 Telephone encounter Tresa PHILLIP Orthopaedics Comment on above: 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 Start: 06-10-2023 ambulatory Shaji Bishop MD Work Phone: Orthopaedics Start: 06-07-2023 End: 06-07-2023 Patient encounter procedure Luma Garcia PA-C Work Phone: Orthopaedics Comment on above: S/P total knee arthr oplasty, left (Primary Dx); Acute post-operative pain Start: 06-07-2023 End: 06-07-2023 ambulatory LUMA GARCIA Facility:[facility] Start: 06-07-2023 End: 06-07-2023 Subsequent hospital visit by physician Orth General Xray A21 Radiology Comment on above: Arthritis of left kn ee [M17.12] Start: 05-09-2023 Telephone encounter Nicole Meeks RN Orthopaedics Comment on above: Post Op Start: 05-07-2023 End: 05-07-2023 Evaluation and management of inpatient MERLINE FULLER Facility:[facility] Start: 05-07-2023 End: 05-07-2023 Evaluation and management of inpatient SHAJI BISHOP Facility:[facility] Start: 05-06-2023 Telephone encounter Nicole Meeks RN Orthopaedics Comment on above: Patient Update (Surg lauren Arrival Time) Start: 05-03-2023 Orders Only Luma Garcia PA-C Work Phone: Orthopaedics Comment on above: Arthritis of left kn ee (Primary Dx) Start: 05-01-2023 ambulatory Dimple Dan RN [facility] Comment on above: Blood Management Start: 04-30-2023 End: 04-30-2023 Orders Only Luma Garcia PA-C Work Phone: Orthopaedics Comment on above: Arthritis of left kn ee (Primary Dx) Start: 04-29-2023 End: 04-29-2023 Subsequent hospital visit by physician Ct 2 Main Qb (I-Stat) Radiology Comment on above: Primary osteoarthrit is of left knee [M17.12] Start: 04-29-2023 End: 04-29-2023 Admission to [facility] Main Work Phone: [facility] [facility] Start: 04-29-2023 End: 04-29-2023 Preprocedural examination done [place] [id number] Work Phone: [facility] Work Phone: Start: 04-29-2023 Encounter for other preprocedural examination MERLINE FULLER [facility] Start: 04-29-2023 End: 04-29-2023 ambulatory [place] [id number] Work Phone: Pre Anesthesia Comment on above: Pre-op evaluation (P rimary Dx) Start: 02-26-2023 End: 02-27-[address] MERLINE FULLER . Facility: Start: 02-21-2023 End: 02-21-2023 ambulatory OSMAR NORIEGA Facility: Start: 02-04-2023 ambulatory Dimple Dan RN [facility] Start: 02-01-2023 End: 02-01-2023 Patient encounter procedure [...] Comment: Speci men Type: BLOOD SPECIMENOrdering Facility: [facility] Address: [address] [place] [address] Performed By: #### T [id number] ####CC MAIN BLOOD BANKCLIA [id number] [address] Start: 06-07-2023 Radiologic examinati on knee 3 views Shaji Bishop MD Work Phone: Start: 05-07-2023 Antibody screen MERLINE FULLER Comment on above: Order Comment: Speci men Type: BLOOD SPECIMENOrdering Facility: [facility] Address: [address] [place], [place] [id number] Performed By: #### T SCR ####CC [facility] BLOOD BANKCLIA [id number] [address] OF [place] Start: 04-29-2023 Ct lower extremity w /o contrast material Luma Gracia PA-C Work Phone: Start: 02-26-2023 PSA screening OSMAR NORIEGA Comment on above: Performed By: #### P [facility] #### [facility] [address] [place] [address] Dr. Luci Christian Start: 02-01-2023 Radiologic exam knee complete 4/more views Luma Garcia PA-C Work Phone: Plan of Treatment Date Care Activity Detail Author Start: 09-05-2026 Diabetes Screening Diabetes Screenmilton g [facility] Start: 08-29-2026 Diabetes Screening Diabetes Screenin g [facility] Start: 04-29-2026 DIABETES SCREEN [facility] Start: 04-29-2026 Diabetes Screening Diabetes Screenin g [facility] Start: 06-21-2024 Influenza vaccination Influenz a Vaccine (Season Ended) [facility] Start: 04-29-2024 BP CONTROLLED (<130/80) BP CONTROLLE D (<130/80) [facility] Start: 10-21-2023 Advance Directive Discussion Advance Directive Discussion [facility] Start: 10-21-2023 Behavioral Health Screening Behavioral Health Screening [facility] Start: 08-28-2023 End: 11-27-2023 TYPE AND SCREEN,30 DAY TYPE AND SCREEN,30 DAY Blood Bank Routine Pre-operative examination Expected: 08/28/2023, Expires: 11/27/2023 [facility] Work Phone: Comment on above: Expected: 08/28/2023 , Expires: 11/27/2023 Start: 06-21-2023 Covid-19 Vaccine () Covid-19 Vaccine () [facility] Start: 06-21-2023 Influenza vaccination [facility] Start: 06-12-2023 Arthrp kne condyle&p latu medial&lat compartments TOTAL KNEE REPLACEMENT Procedures Routine Primary osteoarthritis of right knee Expected: 06/12/2023 [facility] Work Phone: Comment on above: Expected: 06/12/2023 Start: 06-12-2023 End: 08-12-2023 Basic metabolic 2000 panel - Serum or Plasma BASIC METABOLIC PNL Lab Routine Primary osteoarthritis of right knee Expected: 06/12/2023, Expires: 08/12/2023 [facility] Work Phone: Comment on above: Expected: 06/12/2023 , Expires: 08/12/2023 Start: 06-12-2023 End: 08-12-2023 CBC panel - Blood by Automated count CBC Lab Routine Primary osteoarthritis of right knee Expected: 06/12/2023, Expires: 08/12/2023 [facility] Work Phone: Comment on above: Expected: 06/12/2023 , Expires: 08/12/2023 Start: 06-12-2023 End: 08-12-2023 CONFIRM BLOOD TYPE CONFIRM BLOOD TYPE Blood Bank Routine Primary osteoarthritis of right knee Expected: 06/12/2023, Expires: 08/12/2023 [facility] Work Phone: Comment on above: Expected: 06/12/2023 , Expires: 08/12/2023 Start: 06-12-2023 End: 07-09-2024 CT KNEE WO IVCON RIGHT CT KNEE WO IVCON RIGHT Radiology Routine Primary osteoarthritis of right knee Expected: 06/12/2023, Expires: 07/09/2024 [facility] Work Phone: Comment on above: Expected: 06/12/2023 , Expires: 07/09/2024 Start: 06-12-2023 End: 06-10-2024 ECG COMPLETE ECG COMPLETE ECG Routine Primary osteoarthritis of right knee Expected: 06/12/2023, Expires: 06/10/2024 [facility] Work Phone: Comment on above: Expected: 06/12/2023 , Expires: 06/10/2024 Start: 06-12-2023 REFER FOR ADMIT INTERVIEW REFE R FOR ADMIT INTERVIEW Procedures Routine Primary osteoarthritis of right knee Expected: 06/12/2023 [facility] Work Phone: Comment on above: Expected: 06/12/2023 Start: 06-12-2023 End: 08-12-2023 STAPH AUREUS PCR STAPH AUREUS PCR Lab Routine Primary osteoarthritis of right knee Expected: 06/12/2023, Expires: 08/12/2023 [facility] Work Phone: Comment on above: Expected: 06/12/2023 , Expires: 08/12/2023 Start: 06-12-2023 End: 08-12-2023 TYPE AND SCREEN,30 DAY TYPE AND SCREEN,30 DAY Blood Bank Routine Primary osteoarthritis of right knee Expected: 06/12/2023, Expires: 08/12/2023 [facility] Work Phone: Comment on above: Expected: 06/12/2023 , Expires: 08/12/2023 Start: 06-12-2023 End: 07-09-2024 XR KNEE GENERAL 4V AP BOTH/PA BOTH/LAT/MERC RIGHT XR KNEE GENERAL 4V AP BOTH/PA BOTH/LAT/MERC RIGHT Radiology Routine Primary osteoarthritis of right knee Expected: 06/12/2023, Expires: 07/09/2024 [facility] Work Phone: Comment on above: Expected: 06/12/2023 , Expires: 07/09/2024 Start: 06-12-2023 End: 07-09-2024 XR KNEE POST OP 3V AP/LAT/MERCHANT RIGHT XR KNEE POST OP 3V AP/LAT/MERCHANT RIGHT Radiology Routine Primary osteoarthritis of right knee Expected: 06/12/2023, Expires: 07/09/2024 [facility] Work Phone: Comment on above: Expected: 06/12/2023 , Expires: 07/09/2024 Start: 04-30-2023 End: 06-30-2023 Comprehensive metabolic 2000 panel - Serum or Plasma COMP METABOLIC PANEL Lab Routine Arthritis of left knee Expected: 04/30/2023, Expires: 06/30/2023 [facility] Work Phone: Comment on above: Expected: 04/30/2023 , Expires: 06/30/2023 Start: 02-01-2023 End: 04-03-2023 Albumin [Mass/volume] in Serum or Plasma ALBUMIN BLD Lab Routine Primary osteoarthritis of left knee Primary osteoarthritis of right knee Anemia, unspecified type Expected: 02/01/2023, Expires: 04/03/2023 [facility] Work Phone: Comment on above: Expected: 02/01/2023 , Expires: 04/03/2023 Start: 02-01-2023 End: 04-03-2023 CBC W Auto Differential panel - Blood CBC + DIFF Lab Routine Primary osteoarthritis of left knee Primary osteoarthritis of right knee Anemia, unspecified type Expected: 02/01/2023, Expires: 04/03/2023 [facility] Work Phone: Comment on above: Expected: 02/01/2023 , Expires: 04/03/2023 Start: 02-01-2023 End: 04-03-2023 Cobalamin (Vitamin B12) [Mass/volume] in Serum or Plasma VITAMIN B12 BLOOD Lab Routine Primary osteoarthritis of left knee Primary osteoarthritis of right knee Anemia, unspecified type Expected: 02/01/2023, Expires: 04/03/2023 [facility] Work Phone: Comment on above: Expected: 02/01/2023 , Expires: 04/03/2023 Start: 02-01-2023 End: 04-03-2023 Ferritin [Mass/volume] in Serum or Plasma FERRITIN BLD Lab Routine Primary osteoarthritis of left knee Primary osteoarthritis of right knee Anemia, unspecified type Expected: 02/01/2023, Expires: 04/03/2023 [facility] Work Phone: Comment on above: Expected: 02/01/2023 , Expires: 04/03/2023 Start: 02-01-2023 End: 04-03-2023 Folate [Mass/volume] in Serum or Plasma FOLATE SERUM Lab Routine Primary osteoarthritis of left knee Primary osteoarthritis of right knee Anemia, unspecified type Expected: 02/01/2023, Expires: 04/03/2023 [facility] Work Phone: Comment on above: Expected: 02/01/2023 , Expires: 04/03/2023 Start: 02-01-2023 End: 04-03-2023 Iron and Iron binding capacity panel - Serum or Plasma IRON + TIBC Lab Routine Primary osteoarthritis of left knee Primary osteoarthritis of right knee Anemia, unspecified type Expected: 02/01/2023, Expires: 04/03/2023 [facility] Work Phone: Comment on above: Expected: 02/01/2023 , Expires: 04/03/2023 Start: 02-01-2023 End: 04-03-2023 RETIC COUNT RETIC COUNT Lab Routine Primary osteoarthritis of left knee Primary osteoarthritis of right knee Anemia, unspecified type Expected: 02/01/2023, Expires: 04/03/2023 [facility] Work Phone: Comment on above: Expected: 02/01/2023 , Expires: 04/03/2023 Start: 10-21-2022 ADVANCE DIRECTIVE DISCUSSION ADVANCE DIRECTIVE DISCUSSION [facility] Start: 10-21-2022 DEPRESSION ASSESSMENT DEPRESSION ASS ESSMENT [facility] Start: 01-23-2016 Pneumococcal Vaccine : 65+ (1 - PCV) Pneumococcal Vaccine: 65+ (1 - PCV) [facility] Start: 01-23-2016 Pneumococcal Vaccine : 65+ (1 of 1 - PCV) Pneumococcal Vaccine: 65+ (1 of 1 - PCV) [facility] Start: 01-23-2016 PNEUMOCOCCAL: 65+ (1 - PCV) PNEUMOCOCCAL: 65+ (1 - PCV) [facility] Start: 11-22-2014 DIABETES SCREEN DIABETES SCREEN [facility] Start: 2011 RSV Vaccine (1 - 1-d ose 60+ series) RSV Vaccine (1 - 1-dose 60+ series) [facility] Start: 2001 SHINGRIX VACCINE (1 of 2) ZAVALA GRIX VACCINE (1 of 2) [facility] Start: 01-23-1996 COLOGUARD (FIT-DNA) COLOGUARD (FIT-D NA) [facility] Start: 01-23-1996 Colonoscopy COLONOSCOPY [facility] Start: 01-23-1996 COLORECTAL CANCER SCREENING COLORECTAL CANCER SCREENING [facility] Start: 01-23-[address] COLONOGRAPHY [facility] Start: 01-23-1996 FECAL OCCULT BLOOD FECAL OCCULT BLOO D [facility] Start: 01-23-1996 Screening for malign ant neoplasm of colon [facility] Start: 01-23-1996 SIGMOIDOSCOPY SIGMOIDOSCOPY [facility] Start: 1986 Lipid 1996 panel - S gunner or Plasma Lipid Screening [facility] Start: 1986 Lipid panel Lipid Screening [facility] Start: 1986 LIPID SCREEN LIPID SCREEN [facility] Start: 1970 Urine microalbumin profile [facility] Start: 1969 ANNUAL PCP TEAM ORGANISATION AND METHODS ANALYST SANDEEP DISEASE VISIT ANNUAL PCP TEAM CHRONIC DISEASE VISIT [facility] Start: 1969 BP CONTROLLED (<130/80) BP CONTROLLE D (<130/80) [facility] Start: 1969 HEPATITIS C SCREENING HEPATITIS C [facility] Start: 1969 Hepatitis C screening Hepatitis C [facility] Start: 1950 COVID-19 VACCINE (#1) COVID-19 VACCI NE (#1) [facility] Start: 1950 Abdominal Aortic Ane urysm Screening Abdominal Aortic Aneurysm Screening [facility] Start: 1950 Abdominal aortic ane urysm screening Abdominal Aortic Aneurysm Screening [facility] End: 03-02-2024 CT KNEE WO IVCON LEFT CT KNEE WO IVCON LEFT Radiology Routine Primary osteoarthritis of left knee Primary osteoarthritis of right knee Anemia, unspecified type 1 Occurrences starting 02/01/2023 until 03/02/2024 [facility] Work Phone: Comment on above: 1 Occurrences starti ng 02/01/2023 until 03/02/2024 End: 04-29-2024 Echocardiography ECHO Cardiology Routine Pre-op evaluation 1 Occurrences starting 04/29/2023 until 04/29/2024 [facility] Work Phone: Comment on above: 1 Occurrences starti ng 04/29/2023 until 04/29/2024 STAPH AUREUS PCR STAPH AUREUS PC R Lab Routine Pre-operative examination Ordered: 08/28/2023 [facility] Work Phone: Comment on above: Ordered: 08/28/2023 TYPE AND SCREEN,30 DAY TYPE AND SCREEN,30 DAY Blood Bank Routine Pre-operative examination 08/29/2023 8:46 AM EST [facility] Work Phone: End: 11-01-2024 XR KNEE POST OP 3V AP/LAT/MERCHANT BILATERAL XR KNEE POST OP 3V AP/LAT/MERCHANT BILATERAL Radiology Routine S/P total knee arthroplasty, right 1 Occurrences starting 10/03/2023 until 11/01/2024 [facility] Work Phone: Comment on above: 1 Occurrences starti ng 10/03/2023 until 11/01/2024 [facility] Payers Date Payer Category Payer Unknown [employer] SUPPLEMENT [id number] 2021-Present [phone] [id number] [place], [place] [id number] Indemnity [id number] 2016 Medicare [id number] 1959 Medicare [id number] 1959 Unknown [id number] 1951 Unknown [id number] 1951 Unknown [id number] Social History Date Type Detail Facility Start: 08-20-2011 End: 04-29-2023 Tobacco smoking status PRIS Never smoked tobacco [facility] Start: 08-20-2011 End: 08-29-2023 Tobacco use and exposure Smokeless tobacco non-user [facility] Start: 02-01-2023 End: 08-29-2023 Alcohol intake Current drinker of alcohol (finding) [facility] Start: 02-01-2023 End: 04-29-2023 Alcohol intake [facility] Start: 11-09-2011 Alcohol Comment 1 drink of vod ka daily [facility] Start: 1950 Sex Assigned At Not on file [facility] Start: 04-29-2023 End: 08-21-2023 Tobacco use panel [facility] National Score (1-10 0), lower number is lower risk 73 [facility] Start: 04-29-2023 Alcohol Comment 1 drink of vod ka daily per pt 04/29/2023 [facility] Has the [employer], [employer], or [employer] threatened to shut off services in your home in past 12Mo No [facility] Do you belong to any clubs or organizations such as restoration groups, unions, fraternal or athletic groups, or school groups? Yes [facility] Are you now , , , , never or living with a partner? [facility] How often to you hav e a drink containing alcohol? 4 or more times a week [facility] How many standard dr inks containing alcohol do you have on a typical day? 1 or 2 [facility] How often do you hav e 6 or more drinks on 1 occasion? Never [facility] How hard is it for y ou to pay for the very basics like food, housing, medical care, and heating Not very hard [facility] Do you feel stress - tense, restless, nervous, or anxious, or unable to sleep at night because your mind is troubled all the time - these days [OSQ] Only a little [facility] (I/We) worried magaly er (my/our) food would run out before (I/we) got money to buy more. Never true [facility] Start: 08-29-2023 Tobacco smoking stat us NHIS Ex-smoker [facility] End: 10-21-1982 History of tobacco use Current smoker [facility] End: 10-21-1982 History of tobacco use Cigarette Smoker [facility] Start: 08-29-2023 Alcohol Comment 1 drink of vod ka daily per pt 08/29/2023 [facility] NEGATED: Highlighted rowStart: NINF History of tobacco use Passive smoker [facility] Medical Equipment Procedure Code Equipment Code Equipment Origin al Text Equipment Identifier Dates Baseplate Triath shivani 6 Tritanium [id number] Tibial 4 Cruciform Peg Keel Knee - [id number] Start: 05-07-2023 Component Triath shivani 5 Pa Femoral Cruciate Retain Bead Knee Right - [id number] Start: 09-04-2023 Component Tritan ium 38mm Metal 11mm Patellar Asymmetric Knee - [id number] Start: 05-07-2023 Insert Triathlon 6 9mm Tibial Bearing Condylar Stabilize Sterile Knee - [id number] Start: 05-07-2023 Component Triath shivani 5 Pa Femoral Cruciate Retain Bead Knee Left - [id number] Start: 05-07-2023 Component Tritan ium 35mm Metal 10mm Patellar Asymmetric Knee - [id number] Start: 09-04-2023 Insert Triathlon 6 9mm Tibial Bearing Condylar Stabilize Sterile Knee - [id number] Start: 11-15-2023 Baseplate Triath shivani 6 Tritanium [id number] Tibial 4 Cruciform Peg Keel Knee - [id number] Start: 09-04-2023 Goals Date Patient Goal Desired Activity /State Personal health goal Clinical Notes 02-01-2023 to 04-02-2024 Shaji Bishop MD - 04/02/2024 10:09 AM Wili Stokes, RT(R) - 04/02/2024 9:15 AM Luma Jackson PA-C - 10/03/2023 8:11 AM Osmar Arellano, RT(R) - 08/29/2023 11:00 AM EST Note Date & Type Note Facility 04-02-2024 Note HNO ID: [id number] Author: SHAJI BISHOP MD Service: ? Author [...] as documented by the Orthopaedic surgery resident/fellow/physician music library assistant was reviewed and discussed in detail. We have discussed the case and management of the patient's care, and I agree with the above documented information and plan. Provider: Shaji Bishop MD Completed by: Shaji Bishop MD. [facility] 04-02-2024 History of Present illness Narrative Ortho [...] as documented by the Orthopaedic surgery resident/fellow/physician music library assistant was reviewed and discussed in detail. We have discussed the case and management of the patient's care, and I agree with the above documented information and plan. Provider: Shaji Bishop MD Completed by: Shaji Bishop MD. documented in this encounter [facility] 04-02-2024 History of Present illness Narrative [...] PATIENT PRESENTS WITH AN IMPLANTABLE OR ATTACHED SOLUTIONS DELIVERY CONSULTANT: No RADIOLOGY DEPARTMENT: General X-ray: Exam(s) Completed: Lower Extremity X-Ray(s): Knee, AP / Lat / Merchant Bilateral and Wt. Bearing PERIPHERAL IV DATA: Not applicable SIGNED BY:NIECY BEARDEN(RT) AND RT Leslee(R) April 02, 2024 9:42 AM documented in this encounter [facility] 04-02-2024 Note HNO ID: [id number] Author: WILI RICE RT(R) Service: Radiology Author [...] PATIENT PRESENTS WITH AN IMPLANTABLE OR ATTACHED SOLUTIONS DELIVERY CONSULTANT: No RADIOLOGY DEPARTMENT: General X-ray: Exam(s) Completed: Lower Extremity X-Ray(s): Knee, AP / Lat / Merchant Bilateral and Wt. Bearing PERIPHERAL IV DATA: Not applicable SIGNED BY:NIECY BEARDEN(RT) AND RT Leslee(R) April 02, 2024 9:42 AM [facility] 10-03-2023 Note HNO ID: [id number] Author: Luma Garcia PA-C Service: ? Author Type: Physician Electric Screw Driver Operator Type: Progress Notes Filed: 10/03/2023 11:08 AM [...] Last 180 days 09/04/23 Shaji Bishop MD, [id number] Status post total knee replacement, right ..., Admission (Discharged) 05/07/23 Shaji Bishop MD, [id number] Primary osteoarthritis of left knee, Admission (Discharged) [...] Garcia PA-C Completed by: Luma Garcia PA-C [facility] 10-03-2023 History of Present illness Narrative Ortho [...] Last 180 days 09/04/23 Shaji Bishop MD, [id number] Status post total knee replacement, right ..., Admission (Discharged) 05/07/23 Shaji Bishop MD, [id number] Primary osteoarthritis of left knee, Admission (Discharged) [...] Luma Garcia PA-C documented in this encounter [facility] 10-03-2023 Note HNO ID: [id number] Author: Megan Bearden RT(R) Service: Radiology Author [...] RT Jyotsna(R) October 03, 2023 8:02 AM [facility] 09-16-2023 Miscellaneous Notes Re: s/p RTKA on 09/04. Requesting refill of OxyIr. Last fill on 09/10. States he is out; took last 2 last night. [facility]acy documented in this encounter [facility] 09-09-2023 Miscellaneous Notes The following medication(s) were electronically ordered by Luma Garcia PA-C on 09/09/2023. The prescription(s) were sent to [facility]. Requested Prescriptions Pending Prescriptions Disp Refills [...] average per day. documented in this encounter [facility] 09-09-2023 Miscellaneous Notes Patient has been [...] need a refill tomorrow, will pend to [facility]. Reminded how to take two [...] Nicole Meeks RN documented in this encounter [facility] 09-05-2023 Note HNO ID: [id number] Author: Kelle Palma PA-C Service: Orthopaedic Surgery Author Type: Physician Electric Screw Driver Operator Type: Plan of Care Filed: 09/05/2023 8:35 AM Note Text: Orthopaedic plan of care Plan of care discussed with: Provider, RN, Patient. Patient sitting up in bed. His pain is tolerable. Patient is eager to discharge home this morning. He will work with PT this morning. CM checking on [facility] Discharge instructions and med rec completed. Denies [...] osteoarthritis of right knee Kelle Palma PA-C [facility] 09-05-2023 Note HNO ID: [id number] Author: Erin Paez DO Service: Orthopaedic Surgery [...] Department of Orthopedic Surgery 09/05/2023 6:27 AM [facility] 09-04-2023 Note HNO ID: [id number] Author: Dominique Castaneda APRN.CRNA Service: ? Author Type: Nurse Diamond Die Polisher Type: Anesthesia Procedure Notes Filed: 09/04/2023 11:31 [...] September 04, 2023 TIME: 11:31 AM CSN: [id number] [facility] 09-04-2023 Note HNO ID: [id number] Author: Jamel Guevara MD Service: ? Author [...] September 04, 2023 TIME: 7:54 AM CSN: [id number] [facility] 08-29-2023 History of Present illness Narrative Radiology [...] 2023 9:48 AM documented in this encounter [facility] 08-29-2023 Note HNO ID: [id number] Author: Osmar Kuo RT(Alba) Service: Radiology Author [...] Kuo, RT(R) August 29, 2023 9:48 AM [facility] 08-29-2023 Instructions Dwain Mcintosh APRN.MUSEUM LIBRARIAN - 08/29/2023 7:56 AM EST PATIENT PREOPERATIVE INSTRUCTIONS Dr. Shaji Bishop has scheduled you for your procedure at this surgery center: [facility] Scheduling Office: [phone] --[address] [place] [address]. Please read below carefully for your personalized [...] call the Saturday before. Your surgeon s sticker operator will tell you what time to call the office. - If you have not reached the departmental sticker operator by 5 P.M., call [phone] after 5 P.M. the day before your surgery. Please be aware that emergency situations arise, which may delay or change your surgical time. If this happens, we will notify you as soon as possible and regret any inconvenience. If you already have an Advance Directive, please fax a copy to [phone] or email to for it to be [...] Dwain Mcintosh APRN.KEYONNA documented in this encounter [facility] 08-29-2023 History and physical note HISTORY AND PHYSICAL EXAMINATION SERVICE DATE: 08/29/2023 SERVICE TIME: 7:41 AM PRIMARY CARE PHYSICIAN: Merline Fuller MD REASON FOR VISIT: Ronnie Abebe is a 73 year old male who is scheduled for RIGHT ROBOTIC ASSISTED TOTAL KNEE ARTHROPLASTY on 09/04/2023 at [facility] at the request of Dr. Shaji Bishop [...] Prior to Admission medications as of 08/29/23 0092 Medication Sig Last Dose Taking amLODIPine (NORVASC) [...] Pulmonary HTN, Dilated aorta. Negative for DVT/PE, [place], Cardiac surgery or stents. Denies current chest [...] TIME: 8:23 AM documented in this encounter [facility] 08-21-2023 Miscellaneous Notes ORTHOPAEDIC COORDINATION OF [...] min Stress: No Stress Concern Present (08/21/2023) [employer] [place] [employer] - Occupational Stress Questionnaire Feeling of Stress : Only a little Social Connections: Socially Integrated (08/21/2023) Social Connection and Isolation Panel [NHANES] Frequency of Communication with Friends and Family: More than three times a week Frequency of Social Gatherings with Friends and Family: Once a week Attends Rastafari Services: 1 to 4 times per year [...] Year: No Utilities: Not At Risk (08/21/2023) [facility] Utilities Threatened with loss of utilities: No Area Deprivation Index: Medium Risk (04/29/2023) Area Deprivation Index National Score (1-100), lower number is lower risk: 73 State Score (1-10), lower number is lower risk: 6 Data from: https://www.neighborhoodatlas.[facility]/. Last address used for calculation: [address] [place] [address] [address] Equipment: Do you currently use [...] patient/family: Yes - Within 25 [address] [place] [address] [place] [address] Total Joint Arthroplasty (TJA) Surgical Risk Procedure: Primary total Knee replacement Date assessed: risk assessed on 04/29/2023 TJA Risk 04/29/2023 Procedure Primary total Knee replacement Estimated Length of Stay (# of days) 1 Chance of NOT Returning Home at Discharge 3.85 % 30 Day Chance of Readmission 3.06 % Patient lives outside of [facility] service area. Patient stated [facility] is agency of choice for [facility] services. Plan for spouse to provide D/C transport home following surgery. Patient is aware of the possibility of same day D/C at this time and is in agreement SIGNATURE: JOVANNI Spence DATE: August 21, 2023 TIME: 11:34 AM documented in this encounter [facility] 06-07-2023 Note HNO ID: [id number] Author: Luma Garcia PA-C Service: ? Author Type: Physician Electric Screw Driver Operator Type: Progress Notes Filed: 06/07/2023 12:30 PM [...] Last 180 days 05/07/23 Shaji Bishop MD, [id number] Primary osteoarthritis of left knee, Admission (Discharged) [...] Garcia PA-C Completed by: Luma Garcia PA-C [facility] 06-07-2023 History of Present illness Narrative Images [...] Last 180 days 05/07/23 Shaji Bishop MD, [id number] Primary osteoarthritis of left knee, Admission (Discharged) [...] Luma Garcia PA-C documented in this encounter [facility] 06-07-2023 History of Present illness Narrative [...] 2023 9:31 AM documented in this encounter [facility] 06-07-2023 Note HNO ID: [id number] Author: Megan Nova RT(R) Service: ? Author [...] RT Damien(Alba) June 07, 2023 9:31 AM [facility] 05-09-2023 Miscellaneous Notes Patient has been identified [...] Nicole Meeks RN documented in this encounter [facility] 05-07-2023 Note HNO ID: [id number] Author: Sharon Mensah RN Service: Care Management [...] the process utilized to ensure compliance with [facility] policy regarding Inpatient Admission and Observation Services. [...] physician's order as documented evidence of concurrence. [facility] 05-07-2023 Note HNO ID: [id number] Author: Ronnie Rosa RN Service: Care Management [...] the inter-professional team: Yes Name of Caregiver: [facility] Transportation Arrangements Transportation Arrangements: Car Destination: Home Handoff Communication: Handoff to: Primary Care Physician Primary Care Physician Name/Phone: Merline Fuller MD [phone] Additional Information: Discharge Information Row Name Admission (Current) from 05/07/2023 in [facility] M081 Home Health Care Agency [facility] Phone# Patient d/c ready to home today with [facility] services provided by [facility] with confirmed SOC date within 24-48 hours of D/C.. Patient to be transported home by family via private auto. Patient aware of plan and has been provided with [facility] contact information via AVS. Bedside RN aware of plan. DC instructions sent to [facility] via [employer]. SIGNATURE: Ronnie Rosa RN PATIENT NAME: Ronnie Abebe DATE: May 07, 2023 TIME: 4:31 PM CONTACT #: [phone] [facility] 05-07-2023 Note HNO ID: [id number] Author: Ronnie Rosa RN Service: Care Management [...] Inpatient Insurance Provider: MEDICARE A AND B [place] Explained: [place] Given: Yes Level of Care Discussed: Home Care Are you interested in bedside delivery of your medications? No Caregiver Assessment: Caregiver is ready, willing and able to meet the patient's needs as recommended by the inter-professional team: Yes Name of Caregiver: [facility] Transport at Discharge: Transportation Arrangements: Car Destination: Home Needs Prior to Discharge: Needs Prior to Discharge: None;Ready for Discharge Post-Acute Discharge Plan: Plan for D/C home today with home PT. [facility] accepting. Patient and RN aware. SIGNATURE: Ronnie Rosa RN PATIENT NAME: Ronnie Abebe DATE: May 07, 2023 TIME: 4:29 PM CONTACT #: [phone] [facility] 05-07-2023 Note HNO ID: [id number] Author: Arleen Jacobs APRN.MARKETING CONTENT SPECIALIST Service: ? Author Type: Nurse Diamond Die Polisher Type: Anesthesia Procedure Notes Filed: 05/07/2023 9:45 AM Note Text: ANESTHESIOLOGY PROCEDURE NOTE Spinal Block General Information Procedure Start Time/Medication Administration: 05/07/2023 8:39 AM Patient location during procedure: OR Timeout Performed Pre-procedure: timeout performed Patient identity confirmed: arm band and patient Reason for Block: primary surgical anesthetic Staffing MARKETING CONTENT SPECIALIST: Arleen Jacobs APRN.MARKETING CONTENT SPECIALIST Performed by: MARKETING CONTENT SPECIALIST Preparation Sterility Preparation: hand hygiene performed prior [...] May 07, 2023 TIME: 9:45 AM CSN: [id number] [facility] 05-07-2023 Note HNO ID: [id number] Author: Michelet Hsu MD Service: ? Author Type: Resident Type: Anesthesia Procedure Notes Filed: 05/07/2023 7:07 AM Note Text: Attestation signed by Elizabeth King MD at 05/07/2023 2:44 PM I was present throughout the entire procedure Patient tolerated procedure without any complications. Elizabeth King MD [facility] Staff Pager: [phone] ANESTHESIOLOGY PROCEDURE NOTE Peripheral Nerve Block General [...] May 07, 2023 TIME: 7:05 AM CSN: [id number] [facility] 05-06-2023 Miscellaneous Notes Spoke with patient and [...] states an understanding. documented in this encounter [facility] 05-01-2023 Note HNO ID: [id number] Author: Dimple Dan RN Service: ? Author Type: Registered Nurse Type: Progress Notes Filed: 05/01/2023 1:32 PM Note Text: Patient referred to Blood Management for pre-surgical optimization. Hgb 14.1 which exceeds Blood Management guidelines for intervention. [facility] 05-01-2023 History of Present illness Narrative Patient referred to Blood Management for pre-surgical optimization. Hgb 14.1 which exceeds Blood Management guidelines for intervention. documented in this encounter [facility] 04-29-2023 Note HNO ID: [id number] Author: Valeria Farmer MD Service: ? Author [...] Farmer MD Date: 04/29/2023 Time: 2:39 PM [facility] 04-29-2023 History of Present illness Narrative Attending Note I evaluated the patient and personally participated in the murguia components. I agree with the resident's findings and plan as documented and have discussed the case and management of the patient's care with the resident. Signature: Valeria Farmer MD Date: 04/29/2023 Time: 2:39 PM documented in this encounter [facility] 04-29-2023 History of Present illness Narrative [...] 2023 2:07 PM documented in this encounter [facility] 04-29-2023 Note HNO ID: [id number] Author: RT Jalloh (R) Service: Radiology Author [...] RT Yeimi(Alba) April 29, 2023 2:07 PM [facility] 04-29-2023 Instructions Ashleigh Serra MD - 04/29/2023 1:17 PM EDT PATIENT PREOPERATIVE INSTRUCTIONS Luma Garcia PA-C has scheduled you for your procedure at this surgery center: [facility] [place] [facility] Scheduling Office: [phone] --[address] [place] [address]. Please read below carefully for your personalized [...] Procedures: - YOU MUST HAVE A RESPONSIBLE HOSPICE MANAGER TAKE YOU HOME. A NEW ACCOUNTS CLERK OR DIGITAL MARKETING ASSOCIATE CANNOT BE MADE A RESPONSIBLE HOSPICE MANAGER. - We recommend that a responsible person [...] call the Saturday before. Your surgeon s sticker operator will tell you what time to call the office. - If you have not reached the departmental sticker operator by 5 P.M., call [phone] after 5 P.M. the day before your surgery. Please be aware that emergency situations arise, which may delay or change your surgical time. If this happens, we will notify you as soon as possible and regret any inconvenience. If you already have an Advance Directive, please fax a copy to [phone] or email to for it to be [...] Ashleigh Serra MD documented in this encounter [facility] 04-29-2023 History and physical note HISTORY [...] fevers. 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 No neurological symptoms or problems. Respiratory: No history of current cough or dyspnea, or pneumonia in the past 6 weeks. No history of respiratory/pulmonary symptoms or problems. 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 Author [...] Smoking normal High (more content not included)... [facility] 02-21-2023 Note OPERATIVE NOTE OPERATION DATE: 02/21/2023 [...] was further verified by calling his local component assembler prior to surgery and coming to a conclusion of what would be best suited for the patient. This was done; however, the local component assembler once again had not seen the patient [...] ensuring mobility, phacoemulsification was performed in a bapdbcr-[id number]-type fashion. After all nuclear material had been [...] the following day for postoperative care. [facility] 02-21-2023 Note HISTORY AND PHYSICAL EXAMINATION Date:02/20/2023 [...] go forward with his elective procedure. [facility] 02-04-2023 History of Present illness Narrative Patient referred to Blood Management for anemia evaluation/pre-surgical optimization. Current and complete lab data unavailable. Unable to complete evaluation. documented in this encounter [facility] 02-01-2023 Instructions Luma Garcia PA-C - [...] the next three days at the nearest [facility] lab. If you would like, you [...] us: If you are having surgery at [facility] or If you are having surgery at [place], [place], [facility] , [place], [place], [place], [facility], or [facility] documented in this encounter [facility] 02-01-2023 History of Present illness Narrative [...] TIME: 2:00 PM documented in this encounter [facility] 02-01-2023 History of Present illness Narrative [...] 2023 1:45 PM documented in this encounter [facility] Evaluation note Diagnosis Primary osteoarthritis of left knee- Primary Primary localized osteoarthrosis, lower leg Primary osteoarthritis of right knee Primary localized osteoarthrosis, lower leg Anemia, unspecified type [facility] Pain Generalized pain [facility] Diagnosis Pre-op evaluation- Primary Preoperative examination, unspecified Arthritis of left knee Unspecified arthropathy, lower leg [facility] Diagnosis Primary osteoarthritis of left knee Primary localized osteoarthrosis, lower leg Primary osteoarthritis of right knee Primary localized osteoarthrosis, lower leg Anemia, unspecified type Arthritis of left knee Unspecified arthropathy, lower leg [facility] Arthritis of left knee- Primary Unspecified arthropathy, lower leg Arthritis of left knee Unspecified arthropathy, lower leg [facility] Diagnosis Pain- Primary Generalized pain Arthritis of left knee Unspecified arthropathy, lower leg [facility] Diagnosis Arthritis of left knee- Primary Unspecified arthropathy, lower leg Arthritis of left knee Unspecified arthropathy, lower leg documented in this encounter [facility] note* Diagnosis S/P total knee arthroplasty, left- Primary Acute post-operative pain documented in this encounter [facility] note* Diagnosis Arthritis of left knee Unspecified arthropathy, lower leg Arthritis of left knee Unspecified arthropathy, lower leg documented in this encounter [facility] note* Diagnosis Primary osteoarthritis of right knee- Primary Primary localized osteoarthrosis, lower leg documented in this encounter [facility] note* Diagnosis Pre-operative examination- Primary Preoperative [...] osteoarthrosis, lower leg documented in this encounter [facility] note* Diagnosis Primary osteoarthritis of right knee Primary localized osteoarthrosis, lower leg Primary osteoarthritis of right knee Primary localized osteoarthrosis, lower leg documented in this encounter [facility] note* Diagnosis Primary osteoarthritis of right knee Primary localized osteoarthrosis, lower leg Primary osteoarthritis of right knee Primary localized osteoarthrosis, lower leg documented in this encounter [facility] note* Diagnosis Status post total knee replacement, right Primary osteoarthritis of right knee Primary localized osteoarthrosis, lower leg documented in this encounter [facility] note* Diagnosis Status post total knee replacement, right Primary osteoarthritis of right knee Primary localized osteoarthrosis, lower leg [facility] Diagnosis S/P total knee arthroplasty, right- Primary documented in this encounter [facility] note* Diagnosis S/P total knee arthroplasty, right- Primary Status post left knee replacement [facility] Diagnosis S/P total knee arthroplasty, right documented in this encounter [facility] [place] for referral (narrative)* Diagnostic Procedure Only (Routine) - Closed Specialty Diagnoses / Procedures Referred By Sumi t Referred To Contact XR IMAGING Diagnoses Pain Procedures XR KNEE GENERAL 4V AP BOTH/PA BOTH/LAT/MERC BILATERAL RADIOLOGIC EXAM KNEE COMPLETE 4/MORE VIEWS Luma Garcia PA-C [address] [place] [address] Xr Imaging Referral ID Status Reason Start Date Expiration Date V isits Requested Visits Authorized [id number] Closed Auto-Generate d Referral 01/23/2023 02/22/2024 1 1 [facility] [place] for referral (narrative)* Outpatient Procedure (Routine) - Authorized Specialty Diagnoses / Procedures Referred By Contac t Referred To Contact [facility] [place] Diagnoses Pre-op evaluation Procedures ECHO ECHO TTHRC R-T 2D W/WOM-MODE COMPL SPEC&COLR D Valeria Farmer MD [address] [place] [address] [facility] [place] [address] Referral ID Status Reason Start Date Expiration Date Visits Requested Visits Authorized [id number] Authorized Auto-Generat ed Referral 04/29/2023 04/28/2024 1 1 [facility] [place] for referral (narrative)* Diagnostic Procedure Only (Routine) - Closed Specialty Diagnoses / Procedures Referred By Contac t Referred To Contact XR IMAGING Diagnoses Pain Procedures XR KNEE GENERAL 4V AP BOTH/PA BOTH/LAT/MERC BILATERAL RADIOLOGIC EXAM KNEE COMPLETE 4/MORE VIEWS Luma Garcia PA-C [address] [place] [address] Xr Imaging Referral ID Status Reason Start Date Expiration Date V isits Requested Visits Authorized [id number] Closed Auto-Generate d Referral 01/23/2023 02/22/2024 1 1 [facility] [place] for referral (narrative)* Diagnostic Procedure Only (Routine) - Closed Specialty Diagnoses / Procedures Referred By Contac t Referred To Contact XR IMAGING Diagnoses Arthritis of left knee Procedures XR KNEE POST OP 3V AP/LAT/MERCHANT LEFT RADIOLOGIC EXAMINATION KNEE 3 VIEWS Shaji Bishop MD [address] [place] [phone] Xr Imaging [id number] Referral ID Status Reason Start Date Expiration Date V isits Requested Visits Authorized [id number] Closed Auto-Generate d Referral 05/16/2023 03/05/2024 1 1 [facility] [place] for referral (narrative)* Diagnostic Procedure Only (Routine) - Closed Specialty Diagnoses / Procedures Referred By Contac t Referred To Contact XR IMAGING Diagnoses Primary osteoarthritis of right knee Procedures XR KNEE GENERAL 4V AP BOTH/PA BOTH/LAT/MERC RIGHT RADIOLOGIC EXAM KNEE COMPLETE 4/MORE VIEWS Shaji Bishop MD [address] [place] [phone] Xr Imaging [id number] Referral ID Status Reason Start Date Expiration Date V isits Requested Visits Authorized [id number] Closed Auto-Generate d Referral 06/12/2023 07/09/2024 1 1 [facility] [place] for referral (narrative)* Diagnostic Procedure Only (Routine) - Authorized Specialty Diagnoses / Procedures Referred By Contac t Referred To Contact XR IMAGING Diagnoses S/P total knee arthroplasty, right Procedures XR KNEE POST OP 3V AP/LAT/MERCHANT BILATERAL RADIOLOGIC EXAMINATION KNEE 3 VIEWS Luma Garcia PA-C [address] [place] [address] Xr Imaging [id number] Referral ID Status Reason Start Date Expiration Date Visits Requested Visits Authorized [id number] Authorized Auto-Generat ed Referral 11/01/2024 1 1 * Physical Therapy (Routine) - Pending Review Specialty Diagnoses / Procedures Referred By Contac t Referred To Contact [facility] Diagnoses S/P total knee arthroplasty, right Procedures CONSULT TO PHYSICAL THERAPY PHYSICAL THERAPY EVALUATION HIGH COMPLEX 45 MINS Luma Garcia PA-C [address] [place] [address] [facility] [place] [address] [place] [address] Referral ID Status Reason Start Date Expiration Date Visits Requested Visits Authorized [id number] Pending Review PCP Requested Referral Auto-Generate d Referral 10/02/2024 99 99 [facility] for referral (narrative)* Diagnostic Procedure Only (Routine) - Closed Specialty Diagnoses / Procedures Referred By Contac t Referred To Contact XR IMAGING Diagnoses S/P total knee arthroplasty, right Procedures XR KNEE POST OP 3V AP/LAT/MERCHANT BILATERAL RADIOLOGIC EXAMINATION KNEE 3 VIEWS Luma Garcia PA-C [address] [place] [address] [place] [address] Referral ID Status Reason Start Date Expiration Date V isits Requested Visits Authorized [id number] Closed Auto-Generate d Referral 10/03/2023 11/01/2024 1 1 [facility] [place] for visit Narrative* Diagnostic Procedure Only (Routine) - Closed Specialty Diagnoses / Procedures Referred By Contac t Referred To Contact XR IMAGING Diagnoses Primary osteoarthritis of right knee Procedures XR KNEE GENERAL 4V AP BOTH/PA BOTH/LAT/MERC RIGHT RADIOLOGIC EXAM KNEE COMPLETE 4/MORE VIEWS Shaji Bishop MD [address] [place] [address] [place] [address] Referral ID Status Reason Start Date Expiration Date V isits Requested Visits Authorized [id number] Closed Auto-Generate d Referral 06/12/2023 07/09/2024 1 1 [facility] Reason for Referral Specialty Diagnoses / Procedures Referred By Contac t Referred To Contact CT IMAGING Diagnoses Primary osteoarthritis of left knee Primary osteoarthritis of right knee Anemia, unspecified type Procedures CT KNEE WO IVCON LEFT CT LOWER EXTREMITY W/O CONTRAST MATERIAL Luma Garcia PA-C [address] [place] [address] Ct Imaging Referral ID Status Reason Start Date Expiration Date Visits Requested Visits Authorized [id number] Pending Review Auto-Generat ed Referral 02/01/2023 03/02/2024 1 1 Referral ID Status Reason Start Date Expiration Date V isits Requested Visits Authorized [id number] Closed Auto-Generate d Referral 02/01/2023 03/02/2024 1 1 Specialty Diagnoses / Procedures Referred By Contac t Referred To Contact [facility] Diagnoses S/P total knee arthroplasty, left Acute post-operative pain Procedures CONSULT TO PHYSICAL THERAPY PHYSICAL THERAPY EVALUATION HIGH COMPLEX 45 MINS Luma Garcia PA-C [address] [place] [address] [facility] [address] [address] Referral ID Status Reason Start Date Expiration Date Visits Requested Visits Authorized [id number] Pending Review PCP Requested Referral Auto-Generate d Referral 06/07/2023 06/06/2024 99 99 Specialty Diagnoses / Procedures Referred By Contac t Referred To Contact CT IMAGING Diagnoses Primary osteoarthritis of right knee Procedures CT KNEE WO IVCON RIGHT CT LOWER EXTREMITY W/O CONTRAST MATERIAL Shaji Bishop MD [address] [place] [address] Ct Imaging [facility] Referral ID Status Reason Start Date Expiration Date Visits Requested Visits Authorized [id number] Pending Review Auto-Generat ed Referral 06/12/2023 07/09/2024 1 1 Specialty Diagnoses / Procedures Referred By Contac t Referred To Contact Anesthesiology Diagnoses Primary osteoarthritis of right knee Procedures CONSULT TO ANESTHESIOLOGY OFFICE/OUTPATIENT [facility] MDM 60-74 MINUTES Shaji Bishop MD [address] [place] [address] Referral ID Status Reason Start Date Expiration Date Visits Requested Visits Authorized [id number] Authorized PCP Requested Referral 06/12/2023 06/09/2024 1 1 Specialty Diagnoses / Procedures Referred By Contac t Referred To Contact XR IMAGING Diagnoses Primary osteoarthritis of right knee Procedures XR KNEE GENERAL 4V AP BOTH/PA BOTH/LAT/MERC RIGHT RADIOLOGIC EXAM KNEE COMPLETE 4/MORE VIEWS Shaji Bishop MD [address] [place] [phone] Xr Imaging [place] [address] Referral ID Status Reason Start Date Expiration Date Visits Requested Visits Authorized [id number] Pending Review Auto-Generat ed Referral 06/12/2023 07/09/2024 1 1 Specialty Diagnoses / Procedures Referred By Contac t Referred To Contact XR IMAGING Diagnoses Primary osteoarthritis of right knee Procedures XR KNEE POST OP 3V AP/LAT/MERCHANT RIGHT RADIOLOGIC EXAMINATION KNEE 3 VIEWS Shaji Bishop MD [address] [place] [phone] Xr Imaging [place] [address] Referral ID Status Reason Start Date Expiration Date Visits Requested Visits Authorized [id number] Pending Review Auto-Generat ed Referral 06/12/2023 07/09/2024 1 1 Specialty Diagnoses / Procedures Referred By Contac t Referred To Contact [facility] Diagnoses Primary osteoarthritis of right knee Procedures ECG COMPLETE ECG ROUTINE ECG W/LEAST 12 LDS W/I&R Shaji Bishop MD [address] [place] [phone] [facility] [place] [facility] [place] [id number] Referral ID Status Reason Start Date Expiration Date Visits Requested Visits Authorized [id number] Pending Review Auto-Generat ed Referral 06/12/2023 06/09/2024 1 1 Referral ID Status Reason Start Date Expiration Date V isits Requested Visits Authorized [id number] Closed Auto-Generate d Referral 06/12/2023 07/09/2024 1 1 Specialty Diagnoses / Procedures Referred By Contac t Referred To Contact Diagnoses Status post total knee replacement, right Primary osteoarthritis of right knee Luma Garcia PA-C [address] [place] [id number] Referral ID Status Reason Start Date Expiration Date V isits Requested Visits Authorized [id number] Pending Review 1 1 Summary Purpose Family History No Family History Records FoundNo Family History Records Found Advance Directives No Advanced Directives Records FoundNo Advanced Directives Records Found Health Concerns Problem Noted Date Diagnosed Date 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 Problem Noted Date Diagnosed Date 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 Problem Noted Date Diagnosed Date 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 Problem Noted Date Diagnosed Date 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 Problem Noted Date Diagnosed Date 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 Problem Noted Date Diagnosed Date 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 Problem Noted Date Diagnosed Date 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 Problem Noted Date Diagnosed Date 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 Problem Noted Date Diagnosed Date 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 Problem Noted Date Diagnosed Date 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 Problem Noted Date Diagnosed Date 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 Additional Source Comments Source Comments (unrecognize d section and content) In the event this informatio n is protected by the Federal Confidentiality of Alcohol and Drug Abuse Patient Records regulations: The Federal rules restrict any use of the information to criminally investigate or prosecute any alcohol or drug abuse patient.[facility] HospitalIn the event this information is protected by the Federal Confidentiality of Alcohol and Drug Abuse Patient Records regulations: The Federal rules restrict any use of the information to criminally investigate or prosecute any alcohol or drug abuse patient.[facility] HospitalIn the event this information is protected by the Federal Confidentiality of Alcohol and Drug Abuse Patient Records regulations: The Federal rules restrict any use of the information to criminally investigate or prosecute any alcohol or drug abuse patient.[facility] HospitalIn the event this information is protected by the Federal Confidentiality of Alcohol and Drug Abuse Patient Records regulations: The Federal rules restrict any use of the information to criminally investigate or prosecute any alcohol or drug abuse patient.[facility] HospitalIn the event this information is protected by the Federal Confidentiality of Alcohol and Drug Abuse Patient Records regulations: The Federal rules restrict any use of the information to criminally investigate or prosecute any alcohol or drug abuse patient.[facility] HospitalIn the event this information is protected by the Federal Confidentiality of Alcohol and Drug Abuse Patient Records regulations: The Federal rules restrict any use of the information to criminally investigate or prosecute any alcohol or drug abuse patient.[facility] HospitalIn the event this information is protected by the Federal Confidentiality of Alcohol and Drug Abuse Patient Records regulations: The Federal rules restrict any use of the information to criminally investigate or prosecute any alcohol or drug abuse patient.[facility] HospitalIn the event this information is protected by the Federal Confidentiality of Alcohol and Drug Abuse Patient Records regulations: The Federal rules restrict any use of the information to criminally investigate or prosecute any alcohol or drug abuse patient.[facility] HospitalIn the event this information is protected by the Federal Confidentiality of Alcohol and Drug Abuse Patient Records regulations: The Federal rules restrict any use of the information to criminally investigate or prosecute any alcohol or drug abuse patient.[facility] HospitalIn the event this information is protected by the Federal Confidentiality of Alcohol and Drug Abuse Patient Records regulations: The Federal rules restrict any use of the information to criminally investigate or prosecute any alcohol or drug abuse patient.[facility] HospitalIn the event this information is protected by the Federal Confidentiality of Alcohol and Drug Abuse Patient Records regulations: The Federal rules restrict any use of the information to criminally investigate or prosecute any alcohol or drug abuse patient.[facility] HospitalIn the event this information is protected by the Federal Confidentiality of Alcohol and Drug Abuse Patient Records regulations: The Federal rules restrict any use of the information to criminally investigate or prosecute any alcohol or drug abuse patient.[facility] HospitalIn the event this information is protected by the Federal Confidentiality of Alcohol and Drug Abuse Patient Records regulations: The Federal rules restrict any use of the information to criminally investigate or prosecute any alcohol or drug abuse patient.[facility] HospitalIn the event this information is protected by the Federal Confidentiality of Alcohol and Drug Abuse Patient Records regulations: The Federal rules restrict any use of the information to criminally investigate or prosecute any alcohol or drug abuse patient.[facility] HospitalIn the event this information is protected by the Federal Confidentiality of Alcohol and Drug Abuse Patient Records regulations: The Federal rules restrict any use of the information to criminally investigate or prosecute any alcohol or drug abuse patient.[facility] HospitalIn the event this information is protected by the Federal Confidentiality of Alcohol and Drug Abuse Patient Records regulations: The Federal rules restrict any use of the information to criminally investigate or prosecute any alcohol or drug abuse patient.[facility] HospitalIn the event this information is protected by the Federal Confidentiality of Alcohol and Drug Abuse Patient Records regulations: The Federal rules restrict any use of the information to criminally investigate or prosecute any alcohol or drug abuse patient.[facility] HospitalIn the event this information is protected by the Federal Confidentiality of Alcohol and Drug Abuse Patient Records regulations: The Federal rules restrict any use of the information to criminally investigate or prosecute any alcohol or drug abuse patient.[facility] HospitalIn the event this information is protected by the Federal Confidentiality of Alcohol and Drug Abuse Patient Records regulations: The Federal rules restrict any use of the information to criminally investigate or prosecute any alcohol or drug abuse patient.[facility] HospitalIn the event this information is protected by the Federal Confidentiality of Alcohol and Drug Abuse Patient Records regulations: The Federal rules restrict any use of the information to criminally investigate or prosecute any alcohol or drug abuse patient.[facility] HospitalIn the event this information is protected by the Federal Confidentiality of Alcohol and Drug Abuse Patient Records regulations: The Federal rules restrict any use of the information to criminally investigate or prosecute any alcohol or drug abuse patient.[facility] HospitalIn the event this information is protected by the Federal Confidentiality of Alcohol and Drug Abuse Patient Records regulations: The Federal rules restrict any use of the information to criminally investigate or prosecute any alcohol or drug abuse patient.[facility] HospitalIn the event this information is protected by the Federal Confidentiality of Alcohol and Drug Abuse Patient Records regulations: The Federal rules restrict any use of the information to criminally investigate or prosecute any alcohol or drug abuse patient.[facility] HospitalIn the event this information is protected by the Federal Confidentiality of Alcohol and Drug Abuse Patient Records regulations: The Federal rules restrict any use of the information to criminally investigate or prosecute any alcohol or drug abuse patient.[facility] Reason for Visit (unrecogniz ed section and content) Reason Comments New Knee Pain Reason Comments Radio Gen A21 Specialty Diagnoses / Procedures Referred By Contac t Referred To Contact XR IMAGING Diagnoses Pain Procedures XR KNEE GENERAL 4V AP BOTH/PA BOTH/LAT/MERC BILATERAL RADIOLOGIC EXAM KNEE COMPLETE 4/MORE VIEWS Luma Garcia, PA-C [address] [place] [address] Xr Imaging Referral ID Status Reason Start Date Expiration Date V isits Requested Visits Authorized [id number] Closed Auto-Generate d Referral 01/23/2023 02/22/2024 1 1 Specialty Diagnoses / Procedures Referred By Contac t Referred To Contact CT IMAGING Diagnoses Primary osteoarthritis of left knee Primary osteoarthritis of right knee Anemia, unspecified type Procedures CT KNEE WO IVCON LEFT CT LOWER EXTREMITY W/O CONTRAST MATERIAL Luma Garcia PA-C [address] [place] [address] Ct Imaging Referral ID Status Reason Start Date Expiration Date V isits Requested Visits Authorized [id number] Closed Auto-Generate d Referral 02/01/2023 03/02/2024 1 [...] EXAMINATION KNEE 3 VIEWS Shaji Bishop MD [address] [place] [address] Xr Imaging [id number] Referral ID Status Reason Start Date Expiration Date V isits Requested Visits Authorized [id number] Closed Auto-Generate d Referral 05/16/2023 03/05/2024 1 1 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 Reason Comments Pre-Op Visit Reason Comments Radiology CT Specialty Diagnoses / Procedures Referred By Contac t Referred To Contact CT IMAGING Diagnoses Primary osteoarthritis of right knee Procedures CT KNEE WO IVCON RIGHT CT LOWER EXTREMITY W/O CONTRAST MATERIAL Shaji Bishop MD [address] [place] [address] Ct Imaging [id number] Referral ID Status Reason Start Date Expiration Date V isits Requested Visits Authorized [id number] Closed Auto-Generate d Referral 06/12/2023 07/09/2024 1 1 Reason Onset Date Comments Refill Request 09/09/2023 Reason Onset Date Comments Refill Request 09/16/2023 Reason Comments Radiology XR Specialty Diagnoses / Procedures Referred By Contac t Referred To Contact XR IMAGING Diagnoses S/P total knee arthroplasty, right Procedures XR KNEE POST OP 3V AP/LAT/MERCHANT BILATERAL RADIOLOGIC EXAMINATION KNEE 3 VIEWS Luma Garcia PA-C [address] [place] [address] [place] [id number] Referral ID Status Reason Start Date Expiration Date V isits Requested Visits Authorized [id number] Closed Auto-Generate d Referral 10/03/2023 11/01/2024 1 1 Care Teams (unrecognized sec tion and content) Library Services Coordinator Relationship Specialty Start Date End Date Merline Fuller MD PCP - General Family Medicine 08/01/11 Library Services Coordinator Relationship Specialty Start Date End Date Merline Fuller MD PCP - General Family Medicine 08/01/11 Library Services Coordinator Relationship Specialty Start Date End Date Merline Fuller MD PCP - General Family Medicine 08/01/11 Library Services Coordinator Relationship Specialty Start Date End Date Merline Fuller MD PCP - General Family Medicine 08/01/11 Library Services Coordinator Relationship Specialty Start Date End Date Merline Fuller MD PCP - General Family Medicine 08/01/11 Library Services Coordinator Relationship Specialty Start Date End Date Merline Fuller MD PCP - General Family Medicine 08/01/11 Library Services Coordinator Relationship Specialty Start Date End Date Merline Fuller MD PCP - General Family Medicine 08/01/11 Library Services Coordinator Relationship Specialty Start Date End Date Merline Fuller MD PCP - General Family Medicine 08/01/11 Library Services Coordinator Relationship Specialty Start Date End Date Merline Fuller MD PCP - General Family Medicine 08/01/11 Library Services Coordinator Relationship Specialty Start Date End Date Merline Fuller MD PCP - General Family Medicine 08/01/11 Library Services Coordinator Relationship Specialty Start Date End Date Merline Fuller MD PCP - General Family Medicine 08/01/11 Library Services Coordinator Relationship Specialty Start Date End Date Merline Fuller MD PCP - General Family Medicine 08/01/11 Library Services Coordinator Relationship Specialty Start Date End Date Merline Fuller MD PCP - General Family Medicine 08/01/11 Library Services Coordinator Relationship Specialty Start Date End Date Merline Fuller MD PCP - General Family Medicine 08/01/11 Library Services Coordinator Relationship Specialty Start Date End Date Merline Fuller MD PCP - General Family Medicine 08/01/11 Library Services Coordinator Relationship Specialty Start Date End Date Merline Fuller MD PCP - General Family Medicine 08/01/11 Library Services Coordinator Relationship Specialty Start Date End Date Merline Fuller MD PCP - General Family Medicine 08/01/11 Library Services Coordinator Relationship Specialty Start Date End Date Merline Fuller MD PCP - General Family Medicine 08/01/11 Library Services Coordinator Relationship Specialty Start Date End Date Merline Fuller MD PCP - General Family Medicine 08/01/11 Library Services Coordinator Relationship Specialty Start Date End Date Merline Fuller MD PCP - General Family Medicine 08/01/11 (unrecognized sect ion and content) No Status Records FoundNo Status Records Found INFORMATION SOURCE (unrecogn ized section and content) DATE CREATED AUTHOR 03/03/2023 [facility] DATE CREATED AUTHOR AUTHOR'S ORGANIZ ATION 04/03/2024 [facility] FOR RECORDS PERTAINING TO PATIENTS WHO ARE [...] BE BASED ON THE PRIMARY CLINICAL RECORDS. [facility] provides no warranty or guarantee of the accuracy or completeness of information in this document.
== END 2024-11-04 06:55 | disposition home or self-care (01) ==
LOC: US 06:54
PROVIDERS: PCP Family Medicine; Visit Provider Family Medicine
DX: R17 Unspecified jaundice (principal)
CPT/HCPCS: 76705

== ENCOUNTER 2024-11-11 07:51 | Outpatient (OUT) | payer MEDICARE, OTHER, SELFPAY ==
--- NOTE | 2024-11-11 | MR_ITS ---
[address] [address] Patient Name: PRISCILA ABEBE MRN: [id number] date: 1950 Sex: M Assigned Patient Location: MRI Current Patient Location: MRI Accession/Order Number: [id number] Exam Date: 11/11/2024 08:00 Report Date: 11/11/2024 12:59 At the request of: MERLINE FULLER Procedure: MR abdomen wo con EXAMINATION: MR abdomen wo con HISTORY: Dilated Bile Duct COMPARISON: No relevant comparison available. TECHNIQUE: A comprehensive MRI examination of the abdomen was performed to optimize visualization of suspected pathology. Images were obtained with and/or without intravenous Dotarem contrast as indicated by exam type. FINDINGS: LIVER: No enlargement, atrophy, abnormal signal, or significant focal lesion. BILIARY: 10 x 5 x 5 mm stone within distal aspect of the abnormally dilated (10 mm) common bile duct. No additional stones within the gallbladder. No wall thickening or free fluid. PANCREAS: No lesion, fluid collection, ductal dilatation, or atrophy. SPLEEN: No enlargement or focal lesion. KIDNEYS: Small benign-appearing cysts arising from inferior pole of right kidney. ADRENALS: No mass or enlargement. AORTA/VASCULAR: No aneurysm or dissection. RETROPERITONEUM: No mass or adenopathy. BOWEL/MESENTERY: No visible mass, obstruction, or bowel wall thickening. ABDOMINAL WALL: No mass or hernia. BONES: No bony lesion or fracture. LUNG BASES: No visible pleural disease. Lung bases not well assessed with MRI. OTHER: Negative. MR/MR abdomen wo con IMPRESSION: 1. Abnormally dilated common bile duct due to a nonobstructing 10 x 5 x 5 mm stone within the distal common duct. 2. No additional gallstones or evidence of cholecystitis. Electronically authenticated by: RISSA PEGUERO Date: 11/11/2024 12:59
--- OUTSIDE RECORDS SUMMARY | 2024-11-11 07:58 | XMS_ITS | CCD ---
Author Organization [facility] Care Team Providers Care Lead Press Operator Name Role Phone Merline Fuller MD Primary Care Provider [phone] OSMAR NORIEGA Admitting Unavailable OSMAR NORIEGA Attending Unavailable EBONYY ., DR RICK Primary Care Unavailable OSMAR NORIEGA Consulting Unavailable HOY ., DR RICK Admitting Unavailable HOY ., DR RICK Attending Unavailable HOY ., DR RICK Primary Care Unavailable HOY ., DR RICK Consulting Unavailable Merline Fuller MD Primary Care Provider [phone] ALINA MERLINE M Primary Care Unavailable EDNA, [...] on above: Take 1 capsule by mo [facility] two times a day. Famotidine (20 [...] CNOV Office Visit (ORAVON ) RONNIE ABEBE ([id number]) 1950 M Date Time Provider Department 04/02/24 [...] documented by the Orthopaedic surgery resident/fellow/physic cecile wellness assistant was reviewed and discussed in detail. [...] List As (more content not included)... Normal [facility] XR KNEE 3V AP/LAT/ALVARO BILon 04-02-2024 [...] Right total knee arthroplasty without hardware complication. Sweatband Separator: [facility] Transcribe Date/Time: Apr 02 2024 9:56A Dictated by : JONNY ROGERS MD This examination was interpreted and the report reviewed and electronically signed by: DIAZ FAN MD on Apr 02 2024 10:00AM EST [id number] Normal [facility] XR Knee - bilateral 3 Viewso n 04-02-2024 IMPRESSION: Right total knee arthroplasty without hardware complication. Sweatband Separator: [facility] Transcribe Date/Time: Apr 02 2024 9:56A Dictated [...] DIVISION OF RADIOLOGY Provider, [facility] [place] - 04/02/2024 * * *Final Report* * [...] Right total knee arthroplasty without hardware complication. Sweatband Separator[facility] Transcribe Date/Time: Apr 02 2024 9:56A Dictated by : JONNY ROGERS MD This examination was interpreted and the report reviewed and electronically signed by: DIAZ FAN MD on Apr 02 2024 10:00AM EST [facility] Radiology Study observation (narrative) [facility] XR Knee - bilateral 3 ViewsO rdered By: [facility]cf Provider on 04-02-2024 [facility] CNOVon 10-03-2023 CNOV Office Visit (ORAVON ) RONNIE ABEBE ([id number]) 1950 M Date Time Provider Department 10/03/23 [...] Last 180 days 09/04/23 Shaji Bishop MD, [id number] Status post total knee replacement, right ..., Admission (Discharged) 05/07/23 Shaji Bishop MD, [id number] Primary osteoarthritis of left knee, Admission (Discharged) [...] Order(s):CONSULT TO PHYSICAL THERAPY [9032] Order #: [id number]: 1 FUTURE XR KNEE POST OP 3V AP/LAT/MERCHANT BILATERAL [[id number]] Order #: [id number] FUTURE Prescriptions as of 10/03/2023 - aspirin, [...] Toprol bu (more content not included)... Normal [facility] XR KNEE 3V AP/LAT/MERCHANT R Ton [...] IMPRESSION: Right total knee arthroplasty without complication. Sweatband Separator: VI Transcribe Date/Time: Oct 03 2023 8:06A Dictated by : OSMAR ESPINOZA MD This examination was interpreted and the report reviewed and electronically signed by: OSMAR ESPINOZA MD on Oct 03 2023 3:26PM EST [id number] Normal [facility] CNCOon 09-10-2023 CNCO Letter Text Normal [facility] CNPNon 09-09-2023 CNPN Telephone (ORTHMN) RONNIE ABEBE ([id number]) 1950 M Date Time Provider Department 09/09/23 [...] by NICOLE MEEKS RN on 09/09/23 Normal [facility] Basic metabolic 2000 panelon 09-05-2023 Anion gap [Moles/Vol] 15 mmol/L Normal 9-18 [facility] Comment on above: Order Comment: Speci men Type: BLOOD SPECIMENOrdering Facility: [facility] Address: [address] [place] [address] Performed By: #### 2 4321-2 ####[facility] LABCLIA [id number] [place] [address] [place] Calcium [Mass/Vol] 9.4 mg/dL Normal 8.5-10.2 [facility] Comment on above: Order Comment: Speci men Type: BLOOD SPECIMENOrdering Facility: [facility] Address: [address] [place] [address] Performed By: #### 2 4321-2 ####[facility] LABCLIA [id number] [place] [address] [place] Chloride [Moles/Vol] 100 mmol/L Normal 97-105 [facility] Comment on above: Order Comment: Speci men Type: BLOOD SPECIMENOrdering Facility: [facility] Address: [address] [place] [address] Performed By: #### 2 4321-2 ####[facility] LABCLIA [id number] [place] [address] [place] CO2 [Moles/Vol] 20 mmol/L Low 22-30 [facility] Comment on above: Order Comment: Speci men Type: BLOOD SPECIMENOrdering Facility: [facility] Address: [address] [place] [address] Performed By: #### 2 4321-2 ####[facility] LABCLIA [id number] [place] [address] [place] Creatinine [Mass/Vol] 0.82 mg/dL Normal 0.73-1.22 [facility] Comment on above: Order Comment: Speci men Type: BLOOD SPECIMENOrdering Facility: [facility] Address: [address] [place] [address] Performed By: #### 2 4321-2 ####[facility] LABCLIA [id number] [place] [address] [place] Creatinine and Glomerular filtration rate.predicted panel (S/P/Bld) 93 mL/min/1.73m??? Normal >=60 [facility] Comment on above: Order Comment: Speci men Type: BLOOD SPECIMENOrdering Facility: [facility] Address: [address] [place] [address] Result Comment: Sarah mated Glomerular Filtration Rate [...] actual GFR. Performed By: #### 2 4321-2 ####[facility] LABIA [id number] [place] [address] [place] Glucose [Mass/Vol] 140 mg/dL High 74-99 [facility] Comment on above: Order Comment: Speci men Type: BLOOD SPECIMENOrdering Facility: [facility] Address: [address] [place] [address] Result Comment: The [place] Diabetes Association (ADA) provides guidance for cutoff [...] Standards of Medical Care in Diabetes 2016, [place] Diabetes Association. Diabetes Care. 2016.39(Suppl 1). Performed By: #### 2 4321-2 ####[facility] LABIA [id number] [place] [address] [place] Potassium [Moles/Vol] 4.4 mmol/L Normal 3.7-5.1 [facility] Comment on above: Order Comment: Winston[place] men Type: BLOOD SPECIMENOrdering Facility: [facility] Address: [address] [place] [address] Performed By: #### 2 4321-2 ####[facility] [id number] [place] [address] [place] Sodium [Moles/Vol] 135 mmol/L Low 136-144 [facility] Comment on above: Order Comment: Winstoni men Type: BLOOD SPECIMENOrdering Facility: [facility] Address: [address] [place] [address] Performed By: #### 2 4321-2 ####[facility] LABCLIA [id number] [place] [address] [place] Urea nitrogen [Mass/Vol] 15 mg/dL Normal 9-24 [facility] Comment on above: Order Comment: Speci men Type: BLOOD SPECIMENOrdering Facility: [facility] Address: [address] [place] [address] Performed By: #### 2 4321-2 ####[facility] LABCLIA [id number] [place] [address] [place] CASE MANAGEMon 09-05-2023 CASE MANAGEM HNO ID: [id number] Author: Grant Huerta LSW Service: ? Author Type: Pressed Or Blown Glass Worker Type: Care Mgt Progress Note Filed: 09/05/2023 9:12 AM Note Text: CARE MANAGEMENT DISCHARGE NOTE SERVICE DATE: September 05, 2023 SERVICE TIME: 9:11 AM Admission Date: 09/04/2023 LOS: 1 day Discharge Arrangement Discharge Arrangement: Home with Home Health Services Arranged Medical Services: Skilled Home Health Care Type: Physical Therapy Provider Name: [facility] Caregiver Assessment Caregiver is ready, willing and able to meet the patient's needs as recommended by the inter-professional team: Yes Name of Caregiver: [facility] Transportation Arrangements Transportation Arrangements: Car Date of Trip: 09/05/23 Destination: home Handoff Communication: Handoff to: Primary Care Physician Primary Care Physician Name/Phone: Merline Fuller MD [phone] Additional Information: N/A Discharge Information Row Name Admission (Current) from 09/04/2023 in [facility]. Patient discharged to home with HC services. Discharge orders sent to . SIGNATURE: JOVANNI Chung PATIENT NAME: Ronnie Abebe DATE: September 05, 2023 TIME: 9:11 AM CONTACT #: [phone] Normal [facility] CASE MGT INIT ASSESon 2022 CASE MGT BOO MORILLO HNO ID: [id number] Author: Grant Huerta LSW Service: ? Author Type: Pressed Or Blown Glass Worker Type: Care Mgt Initial Assessment Filed: 09/05/2023 8:39 AM Note Text: CARE MANAGEMENT: ASSESSMENT AND DISCHARGE PLAN SERVICE DATE: September 05, 2023 SERVICE TIME: 8:38 AM ASSESSMENT COMPLETED BY OUTPATIENT ORTHOPAEDIC VACUUM CLEANER REPAIR PERSON ORTHOPAEDIC COORDINATION OF CARE Pre-Op Assessment Discharge [...] min Stress: No Stress Concern Present (08/21/2023) [place] [facility] [employer]ational [facility] - Occupational Stress Questionnaire Feeling of Stress : Only a little Social Connections: Socially Integrated (08/21/2023) Social Connection and Isolation Panel [NHANES] Frequency of Communication with Friends and Family: More than three times a week Frequency of Social Gatherings with Friends and Family: Once a week Attends Jewish Services: 1 to 4 times per year [...] Year: No Utilities: Not At Risk (08/21/2023) [facility] Utilities Threatened with loss of utilities: No Area Deprivation Index: Medium Risk (04/29/2023) Area Deprivation Index National Score (1-100), lower number is lower risk: 73 State Score (1-10), lower number is lower risk: 6 Data from: https://www.[facility]ho odatlas.medicine.[facility]. edu/. Last address used for calculation: [address] [place] [address] [address] Equipment: Do you currently use [...] you are (more content not included)... Normal [facility] CBC panel Auto (Bld)on 09-05 Erythrocyte distribution width (RBC) [Ratio] 12.9 % Normal 11.5-15.0 [facility] Comment on above: Order Comment: Speci men Type: BLOOD SPECIMENOrdering Facility: [facility] Address: [address] [place] [address] Performed By: #### 5 8410-2 ####[facility] [id number] [place] [address] [place] Hematocrit (Bld) [Volume fraction] 39.8 % Normal 39.0-51.0 [facility] Comment on above: Order Comment: Speci men Type: BLOOD SPECIMENOrdering Facility: [facility] Address: [address] [place] [address] Performed By: #### 5 8410-2 ####[facility] LABIA [id number] [place] [address] [place] Hemoglobin (Bld) [Mass/Vol] 13.0 g/dL Normal 13.0-17.0 [facility] Comment on above: Order Comment: Speci men Type: BLOOD SPECIMENOrdering Facility: [facility] Address: [address] [place] [address] Performed By: #### 5 8410-2 ####[facility] LABIA [id number] [place] [address] [place] MCH (RBC) [Entitic mass] 31.8 pg Normal 26.0-34.0 [facility] Comment on above: Order Comment: Speci men Type: BLOOD SPECIMENOrdering Facility: [facility] Address: [address] [place] [address] Performed By: #### 5 8410-2 ####[facility] LABCLIA [id number] [place] [address] [place] MCHC (RBC) [Mass/Vol] 32.7 g/dL Normal 30.5-36.0 [facility] Comment on above: Order Comment: Speci men Type: BLOOD SPECIMENOrdering Facility: [facility] Address: [address] [place] [address] Performed By: #### 5 8410-2 ####[facility] LABIA [id number] [place] [address] [place] MCV (RBC) [Entitic vol] 97.3 fL Normal 80.0-100.0 [facility] Comment on above: Order Comment: Speci men Type: BLOOD SPECIMENOrdering Facility: [facility] Address: [address] [place] [address] Performed By: #### 5 8410-2 ####[facility] LABIA [id number] [place] [address] [place] Nucleated RBC (Bld) [#/Vol] 10*3/uL Normal <0.01 [facility] Comment on above: Order Comment: Speci men Type: BLOOD SPECIMENOrdering Facility: [facility] Address: [address] [place] [address] Performed By: #### 5 8410-2 ####[facility] LABCLIA [id number] [place] [address] [place] Platelet mean volume (Bld) [Entitic vol] 10.4 fL Normal 9.0-12.7 [facility] Comment on above: Order Comment: Speci men Type: BLOOD SPECIMENOrdering Facility: [facility] Address: [address] [place] [address] Performed By: #### 5 8410-2 ####[facility] LABCLIA [id number] [place] [address] [place] Platelets (Bld) [#/Vol] 257 10*3/uL Normal 150-400 [facility] Comment on above: Order Comment: Speci men Type: BLOOD SPECIMENOrdering Facility: [facility] Address: [address] [place] [address] Performed By: #### 5 8410-2 ####[facility] LABIA [id number] [place] [address] [place] RBC (Bld) [#/Vol] 4.09 10*6/uL Low 4.20-6.00 [facility] Comment on above: Order Comment: Speci men Type: BLOOD SPECIMENOrdering Facility: [facility] Address: [address] [place] [address] Performed By: #### 5 8410-2 ####[facility] LABIA [id number] [place] [address] [place] WBC (Bld) [#/Vol] 14.83 10*3/uL High 3.70-11.00 [facility] Comment on above: Order Comment: Speci men Type: BLOOD SPECIMENOrdering Facility: [facility] Address: [address] [place] [address] Performed By: #### 5 8410-2 ####[facility] [id number] [place] [address] [place] NURSING PROGon 09-05-2023 NURSING PROG HNO ID: [id number] Author: Mary Carvalho RN Service: Nursing Author [...] will transport home via personal vehicle. Normal [facility] THERAPY NTon 09-05-2023 THERAPY NT HNO ID: [id number] Author: Marichuy Mejia, OTR/L Service: Occupational Therapy Author Type: Occupational Therapist Type: Therapy (PT/OT/Speech/Resp) Filed: 09/05/2023 11:18 AM Note Text: Occupational Therapy Evaluation SERVICE DATE: 09/05/2023 SERVICE TIME: 940 to 955 ROOM: [place] [address] Total Joint Replacement Discharge Readiness: Cleared from [...] Interventions Provided: Evaluation $ Evaluation - Low (36750) Billed Units: 1 unit Training AND Education Provided in: Discharge Planning, Activity Adaptation/Detective Precinct y Strategies, Functional Mobility Involving ADLs, Lower Extremity Dressing, Positioning, Precautions/Restrictio ns, Role of Occupational Therapy, Standing Balance to Improve [place] with ADLs/Self-Care The Following Therapeutic Skills Were Used: Activity Dosing, Cues for Sequencing/Proper Technique for Activity, Cuing Tactile, Cuing Verbal, Cuing Visual, Physical Assist, Therapeutic Use of Self, Teach-Back for Education Skilled Treatment Time (minutes): 15 Please see discipline specific clinical documentation flow (more content not included)... Normal [facility] THERAPY NT HNO ID: [id number] Author: Michele Hoff PTA Service: Physical Therapy Author Type: Sports Book Board Attendant Type: Therapy (PT/OT/Speech/Resp) Filed: 09/05/2023 9:33 AM [...] Daily Plan (more content not included)... Normal [facility] ANES POSTPROC EVALon 023 ANES POSTPROC EVAL HNO ID: [id number] Author: Alba Goel MD Service: ? Author Type: Anesthesiologist Type: Anesthesia Postprocedure Evaluation Filed: 09/04/2023 4:40 PM Note Text: POST ANESTHESIA EVALUATION NOTE : 1950 Procedure Summary Date: 09/04/23 Room / Location: [address] [facility] Anesthesia Start: 1053 Anesthesia Stop: [...] September 04, 2023 TIME: 4:40 PM CSN: [id number] Normal [facility] ANES PRE-OPon 09-04-2023 ANES PRE-OP HNO ID: [id number] Author: Alba Goel MD Service: ? Author Type: Anesthesiologist Type: Anesthesia Preprocedure Evaluation Filed: 09/04/2023 7:35 AM Note Text: ANESTHESIOLOGY DAY OF SURGERY NOTE : 1950 Procedure Information Date/Time: 09/04/2345 Procedure: ROBOTIC ASSISTED TOTAL KNEE ARTHROPLASTY (Right: Knee) Location: [address] [place] Surgeons: Shaji Bishop MD Estimated body mass [...] and consent discussed: yes. Patient / Responsible Green Party agrees to proceed: yes Patient / Surrogate [...] September 04, 2023 TIME: 7:33 AM CSN: [id number] Normal [facility] BRIEF OP NOTon 09-04-2023 BRIEF OP NOT HNO ID: [id number] Author: Michelet Johnston MD Service: Orthopaedic Surgery Author Type: Resident Type: Brief Op Note Filed: 09/04/2023 1:29 PM Note Text: BRIEF OP NOTE LOG ID: [id number] Surgery/Procedure Date: 09/04/2023 Incision/Procedure Start Time: 11:29 AM Incision Close/Procedure End Time: Surgeon(s)/Procedurali st(s) and Music Engineer(s): Surgeon(s) and Role: * Shaji Bishop MD [...] 04, 2023 TIME: 1:29 PM PAGER/CONTACT #: [phone] Plan of care discussed with: Provider, RN, Patient. Normal [facility] Basic metabolic 2000 panelon 09-04-2023 Anion gap [Moles/Vol] 10 mmol/L Normal 9-18 [facility] Comment on above: Order Comment: Speci men Type: BLOOD SPECIMENOrdering Facility: [facility] Address: [address] [place] [address] Performed By: #### 2 4321-2 ####[facility] LABCLIA [id number] [place] [address] [place] Calcium [Mass/Vol] 9.6 mg/dL Normal 8.5-10.2 [facility] Comment on above: Order Comment: Speci men Type: BLOOD SPECIMENOrdering Facility: [facility] Address: [address] [place] [address] Performed By: #### 2 4321-2 ####[facility] LABCLIA [id number] [place] [address] [place] Chloride [Moles/Vol] 105 mmol/L Normal 97-105 [facility] Comment on above: Order Comment: Speci men Type: BLOOD SPECIMENOrdering Facility: [facility] Address: [address] [place] [address] Performed By: #### 2 4321-2 ####[facility] LABCLIA [id number] [place] [address] [place] CO2 [Moles/Vol] 24 mmol/L Normal 22-30 [facility] Comment on above: Order Comment: Speci men Type: BLOOD SPECIMENOrdering Facility: [facility] Address: [address] [place] [address] Performed By: #### 2 4321-2 ####[facility] LABIA [id number] [address] [place] Creatinine [Mass/Vol] 0.87 mg/dL Normal 0.73-1.22 [facility] Comment on above: Order Comment: Speci men Type: BLOOD SPECIMENOrdering Facility: [facility] Address: [address] [place] [address] Performed By: #### 2 4321-2 ####[facility] LABIA [id number] [address] OF [facility] Creatinine and Glomerular filtration rate.predicted panel (S/P/Bld) 92 mL/min/1.73m??? Normal >=60 [facility] Comment on above: Order Comment: Speci men Type: BLOOD SPECIMENOrdering Facility: [facility] Address: [address] [place] [address] Result Comment: Sarah mated Glomerular Filtration Rate [...] actual GFR. Performed By: #### 2 4321-2 ####[facility] LABCLIA [id number] [place] [address] [place] Glucose [Mass/Vol] 109 mg/dL High 74-99 [facility] Comment on above: Order Comment: Speci men Type: BLOOD SPECIMENOrdering Facility: [facility] Address: [address] [place] [address] Result Comment: The [place] Diabetes Association (ADA) provides guidance for cutoff [...] Standards of Medical Care in Diabetes 2016, [place] Diabetes Association. Diabetes Care. 2016.39(Suppl 1). Performed By: #### 2 4321-2 ####[facility] LABCLIA [id number] [place] [address] [place] Potassium [Moles/Vol] 4.2 mmol/L Normal 3.7-5.1 [facility] Comment on above: Order Comment: Speci men Type: BLOOD SPECIMENOrdering Facility: [facility] Address: [address] [place] [address] Performed By: #### 2 4321-2 ####[facility] LABCLIA [id number] [place] [address] [place] Sodium [Moles/Vol] 139 mmol/L Normal 136-144 [facility] Comment on above: Order Comment: Speci men Type: BLOOD SPECIMENOrdering Facility: [facility] Address: [address] [place] [address] Performed By: #### 2 4321-2 ####[facility] LABCLIA [id number] [place] [address] [place] Urea nitrogen [Mass/Vol] 19 mg/dL Normal 9-24 [facility] Comment on above: Order Comment: Speci men Type: BLOOD SPECIMENOrdering Facility: [facility] Address: [address] [place] [address] Performed By: #### 2 4321-2 ####[facility] LABCLIA [id number] [id number] OF [facility] CNDSon 09-04-2023 CNDS HNO ID: [id number] Author: Erin Paez DO Service: Orthopaedic Surgery [...] Your Medications These medications were sent to [facility] [address] [place] [address] Hours: Saturday-Saturday 7am-8pm, Saturday, Saturday and Holidays 9am-5pm acetaminophen 500 mg tablet aspirin, enteric coated 81 mg EC tablet docusate sodium 100 mg capsule oxyCODONE IR 5 mg immediate release tablet Follow-Up in 10-14 days Futu (more content not included)... Normal [facility] OPERATIVE NOon 09-04-2023 OPERATIVE NO HNO ID: [id number] Author: Shaji Bishop MD Service: Orthopaedic Surgery Author Type: Physician Type: Operative Report Filed: 09/05/2023 3:54 PM Note Text: [facility] [address] [place] [address] [place] OPERATIVE NOTE PATIENT NAME: Ronnie Abebe AGE: [age] year old LOG ID: [id number] SURGERY DATE: 09/04/2023 SURGEON AND ASSISTANTS: Surgeon(s) [...] acid was used for blood conservation. The xPeerient robot was prepared and draped. The Robotic [...] incision. Di (more content not included)... Normal [facility] THERAPY NTon 09-04-2023 THERAPY NT HNO ID: [id number] Author: Margaret Goldman PT, DPT Service: Physical Therapy Author Type: Physical Therapist Type: Therapy (PT/OT/Speech/Resp) Filed: 09/04/2023 5:55 PM Note Text: Physical Therapy Evaluation SERVICE DATE: 09/04/2023 SERVICE TIME: 1645 to 1742 ROOM: [place] [address] Total Joint Replacement Discharge Readiness: Cleared from [...] and mobility-other Interventions Provided: Evaluation, Therapeutic Exercise (72948), Therapeutic Activity (47005), Gait Training (45445) $ Evaluation-Low (93796) Billed Units: 1 unit Therapeutic Exercise (06671) Treatment Minutes: 15 $ Therapeutic Exercise (21041) Billed Units: 1 unit Therapeutic Activity (00012) Treatment Minutes: 10 $ Therapeutic Activity (61509) Billed Units: 1 unit Gait Training (52982) Treatment Minutes: 15 $ Gait Training (65394) Billed Units: 1 unit Training AND Education [...] Cuing Visual (more content not included)... Normal [facility] Basic metabolic 2000 panelon 08-29-2023 Anion gap [Moles/Vol] 11 mmol/L 9 - 18 mmol/L [facility] Calcium [Mass/Vol] 9.4 mg/dL 8.5 - 10. 2 mg/dL [facility] Chloride [Moles/Vol] 106 mmol/L High 97 - 10 5 mmol/L [facility] CO2 [Moles/Vol] 22 mmol/L 22 - 30 mmol/L [facility] Creatinine [Mass/Vol] 1.40 mg/dL High 0.73 - 1.22 mg/dL [facility] Estimated Glomerular Filtration Rate 53 mL/min/1.73m Low >=60 mL/min/1.73m [facility] Glucose [Mass/Vol] 101 mg/dL High 74 - 99 mg/dL [facility] Potassium [Moles/Vol] 5.3 mmol/L High 3.7 - 5.1 mmol/L [facility] Sodium [Moles/Vol] 139 mmol/L 136 - 144 mmol/L [facility] Urea nitrogen [Mass/Vol] 29 mg/dL High 9 - 24 mg/dL [facility] Anion gap [Moles/Vol] 11 mmol/L Normal 9-18 [facility] Comment on above: Order Comment: Speci men Type: BLOOD SPECIMENOrdering Facility: [facility] Address: [address] [place] [address] Performed By: #### 2 4321-2, 22459-2, 2276-01 ####[facility] LABCLIA [id number] [place] [address] [place] Calcium [Mass/Vol] 9.4 mg/dL Normal 8.5-10.2 [facility] Comment on above: Order Comment: Speci men Type: BLOOD SPECIMENOrdering Facility: [facility] Address: [address] [place] [address] Performed By: #### 2 4321-2, 76144-2, 2276-01 ####[facility] LABCLIA [id number] [place] [address] [place] Chloride [Moles/Vol] 106 mmol/L High 97-105 [facility] Comment on above: Order Comment: Speci men Type: BLOOD SPECIMENOrdering Facility: [facility] Address: [address] [place] [address] Performed By: #### 2 4321-2, 99266-3, 2276-01 ####[facility] LABCLIA [id number] [place] [address] [place] CO2 [Moles/Vol] 22 mmol/L Normal 22-30 [facility] Comment on above: Order Comment: Speci men Type: BLOOD SPECIMENOrdering Facility: [facility] Address: [address] [place] [address] Performed By: #### 2 4321-2, 49040-1, 2276-01 ####[facility] LABCLIA [id number] [place] [address] [place] Creatinine [Mass/Vol] 1.40 mg/dL High 0.73-1.22 [facility] Comment on above: Order Comment: Speci men Type: BLOOD SPECIMENOrdering Facility: [facility] Address: [address] [place] [address] Performed By: #### 2 4321-2, 93118-0, 2276-4 ####[facility] LABIA [id number] [place] [address] [place] Creatinine and Glomerular filtration rate.predicted panel (S/P/Bld) 53 mL/min/1.73m??? Low >=60 [facility] Comment on above: Order Comment: Celina carmona Type: BLOOD SPECIMENOrdering Facility: [facility] Address: [address] [place] [address] Result Comment: Sarah mated Glomerular Filtration Rate [...] actual GFR. Performed By: #### 2 4321-2, 27758-4, 2276-4 ####[facility] LABIA [id number] [place] [address] [place] Glucose [Mass/Vol] 101 mg/dL High 74-99 [facility] Comment on above: Order Comment: Celina carmona Type: BLOOD SPECIMENOrdering Facility: [facility] Address: [address] [place] [address] Result Comment: The [place] Diabetes Association (ADA) provides guidance for cutoff [...] Standards of Medical Care in Diabetes 2016, [place] Diabetes Association. Diabetes Care. 2016.39(Suppl 1). Performed By: #### 2 4321-2, 55751-4, 6-4 ####[facility] LABCLIA [id number] [place] [address] [place] Potassium [Moles/Vol] 5.3 mmol/L High 3.7-5.1 [facility] Comment on above: Order Comment: Speci men Type: BLOOD SPECIMENOrdering Facility: [facility] Address: [address] [place] [address] Performed By: #### 2 4321-2, 35904-5, 2275- ####[facility] LABIA [id number] [place] [address] [place] Sodium [Moles/Vol] 139 mmol/L Normal 136-144 [facility] Comment on above: Order Comment: Speci men Type: BLOOD SPECIMENOrdering Facility: [facility] Address: [address] [place] [address] Performed By: #### 2 4321-2, 29083-7, 2275-4 ####[facility] [id number] [place] [address] [place] Urea nitrogen [Mass/Vol] 29 mg/dL High 9-24 [facility] Comment on above: Order Comment: Speci men Type: BLOOD SPECIMENOrdering Facility: [facility] Address: [address] [place] [address] Performed By: #### 2 4321-2, 87749-3, 2275-4 ####[facility] LABIA [id number] [place] [id number] [place] CBC W Auto Differential pane l (Bld)on 08-29-2023 Basophils (Bld) [#/Vol] 0.06 10*3/uL <0.11 k/uL [facility] Basophils/100 WBC (Bld) 0.7 % [facility] Differential cell count method Nom (Bld) Auto [facility] Eosinophils (Bld) [#/Vol] 0.32 10*3/uL <0.46 k/uL [facility] Eosinophils/100 WBC (Bld) 3.5 % [facility] Erythrocyte distribution width (RBC) [Ratio] 13.4 % 11.5 - 15.0 % [facility] Hematocrit (Bld) [Volume fraction] 43.2 % 39.0 - 51.0 % [facility] Hemoglobin (Bld) [Mass/Vol] 13.3 g/dL 13.0 - 17.0 g/dL [facility] Immature granulocytes (Bld) [#/Vol] 0.04 10*3/uL <0.10 k/uL [facility] Immature granulocytes/100 WBC (Bld) 0.4 % [facility] Lymphocytes (Bld) [#/Vol] 2.10 10*3/uL 1.00 - 4.00 k/uL [facility] Lymphocytes/100 WBC (Bld) 22.9 % [facility] MCH (RBC) [Entitic mass] 31.2 pg 26.0 - 34.0 pg [facility] MCHC (RBC) [Mass/Vol] 30.8 g/dL 30.5 - 36.0 g/dL [facility] MCV (RBC) [Entitic vol] 101.4 fL High 80.0 - 100.0 fL [facility] Monocytes (Bld) [#/Vol] 1.16 10*3/uL High <0.87 k/uL [facility] Monocytes/100 WBC (Bld) 12.7 % [facility] Neutrophils (Bld) [#/Vol] 5.48 10*3/uL 1.45 - 7.50 k/uL [facility] Neutrophils/100 WBC (Bld) 59.8 % [facility] Nucleated RBC (Bld) [#/Vol] <0.01 k/uL [facility] Nucleated RBC/100 WBC (Bld) [Ratio] 0.0 /100 WBC [facility] Platelet mean volume (Bld) [Entitic vol] 10.4 fL 9.0 - 12.7 fL [facility] Platelets (Bld) [#/Vol] 283 10*3/uL 150 - 400 k/uL [facility] RBC (Bld) [#/Vol] 4.26 10*6/uL 4.20 - 6.0 0 m/uL [facility] WBC (Bld) [#/Vol] 9.16 10*3/uL 3.70 - 11. 00 k/uL [facility] Basophils (Bld) [#/Vol] 0.06 10*3/uL Normal <0.11 [facility] Comment on above: Order Comment: Speci men Type: BLOOD SPECIMENOrdering Facility: [facility] Address: [address] [place] [address] Performed By: #### 5 7021-8 ####[facility] LABCLIA [id number] [place] [address] [place] Basophils/100 WBC (Bld) 0.7 % Normal [facility] Comment on above: Order Comment: Speci men Type: BLOOD SPECIMENOrdering Facility: [facility] Address: [address] [place] [address] Performed By: #### 5 7021-8 ####[facility] LABCLIA [id number] [place] [address] [place] Differential cell count method Nom (Bld) Auto Normal [facility] Comment on above: Order Comment: Speci men Type: BLOOD SPECIMENOrdering Facility: [facility] Address: [address] [place] [address] Performed By: #### 5 7021-8 ####[facility] LABCLIA [id number] [place] [address] [place] Eosinophils (Bld) [#/Vol] 0.32 10*3/uL Normal <0.46 [facility] Comment on above: Order Comment: Speci men Type: BLOOD SPECIMENOrdering Facility: [facility] Address: [address] [place] [address] Performed By: #### 5 7021-8 ####[facility] LABCLIA [id number] [place] [address] [place] Eosinophils/100 WBC (Bld) 3.5 % Normal [facility] Comment on above: Order Comment: Speci men Type: BLOOD SPECIMENOrdering Facility: [facility] Address: [address] [place] [address] Performed By: #### 5 7021-8 ####[facility] LABIA [id number] [place] [address] [place] Erythrocyte distribution width (RBC) [Ratio] 13.4 % Normal 11.5-15.0 [facility] Comment on above: Order Comment: Speci men Type: BLOOD SPECIMENOrdering Facility: [facility] Address: [address] [place] [address] Performed By: #### 5 7021-8 ####[facility] LABIA [id number] [place] [address] [place] Hematocrit (Bld) [Volume fraction] 43.2 % Normal 39.0-51.0 [facility] Comment on above: Order Comment: Speci men Type: BLOOD SPECIMENOrdering Facility: [facility] Address: [address] [place] [address] Performed By: #### 5 7021-8 ####[facility] LABIA [id number] [place] [address] [place] Hemoglobin (Bld) [Mass/Vol] 13.3 g/dL Normal 13.0-17.0 [facility] Comment on above: Order Comment: Speci men Type: BLOOD SPECIMENOrdering Facility: [facility] Address: [address] [place] [address] Performed By: #### 5 7021-8 ####[facility] LABIA [id number] [place] [address] [place] Immature granulocytes (Bld) [#/Vol] 0.04 10*3/uL Normal <0.10 [facility] Comment on above: Order Comment: Speci men Type: BLOOD SPECIMENOrdering Facility: [facility] Address: [address] [place] [address] Performed By: #### 5 7021-8 ####[facility] LABIA [id number] [place] [address] [place] Immature granulocytes/100 WBC (Bld) 0.4 % Normal [facility] Comment on above: Order Comment: Speci men Type: BLOOD SPECIMENOrdering Facility: [facility] Address: [address] [place] [address] Performed By: #### 5 7021-8 ####[facility] LABCLIA [id number] [place] [address] [place] Lymphocytes (Bld) [#/Vol] 2.10 10*3/uL Normal 1.00-4.00 [facility] Comment on above: Order Comment: Speci men Type: BLOOD SPECIMENOrdering Facility: [facility] Address: [address] [place] [address] Performed By: #### 5 7021-8 ####[facility] LABCLIA [id number] [place] [address] [place] Lymphocytes/100 WBC (Bld) 22.9 % Normal [facility] Comment on above: Order Comment: Speci men Type: BLOOD SPECIMENOrdering Facility: [facility] Address: [address] [place] [address] Performed By: #### 5 7021-8 ####[facility] LABCLIA [id number] [place] [address] [place] MCH (RBC) [Entitic mass] 31.2 pg Normal 26.0-34.0 [facility] Comment on above: Order Comment: Speci men Type: BLOOD SPECIMENOrdering Facility: [facility] Address: [address] [place] [address] Performed By: #### 5 7021-8 ####[facility] LABCLIA [id number] [place] [address] [place] MCHC (RBC) [Mass/Vol] 30.8 g/dL Normal 30.5-36.0 [facility] Comment on above: Order Comment: Speci men Type: BLOOD SPECIMENOrdering Facility: [facility] Address: [address] [place] [address] Performed By: #### 5 7021-8 ####[facility] LABIA [id number] [place] [address] [place] MCV (RBC) [Entitic vol] 101.4 fL High 80.0-100.0 [facility] Comment on above: Order Comment: Speci men Type: BLOOD SPECIMENOrdering Facility: [facility] Address: [address] [place] [address] Performed By: #### 5 7021-8 ####[facility] LABIA [id number] [place] [address] [place] Monocytes (Bld) [#/Vol] 1.16 10*3/uL High <0.87 [facility] Comment on above: Order Comment: Speci men Type: BLOOD SPECIMENOrdering Facility: [facility] Address: [address] [place] [address] Performed By: #### 5 7021-8 ####[facility] LABIA [id number] [place] [address] [place] Monocytes/100 WBC (Bld) 12.7 % Normal [facility] Comment on above: Order Comment: Speci men Type: BLOOD SPECIMENOrdering Facility: [facility] Address: [address] [place] [address] Performed By: #### 5 7021-8 ####[facility] LABIA [id number] [place] [address] [place] Neutrophils (Bld) [#/Vol] 5.48 10*3/uL Normal 1.45-7.50 [facility] Comment on above: Order Comment: Speci men Type: BLOOD SPECIMENOrdering Facility: [facility] Address: [address] [place] [address] Performed By: #### 5 7021-8 ####[facility] LABCLIA [id number] [place] [address] [place] Neutrophils/100 WBC (Bld) 59.8 % Normal [facility] Comment on above: Order Comment: Speci men Type: BLOOD SPECIMENOrdering Facility: [facility] Address: [address] [place] [address] Performed By: #### 5 7021-8 ####[facility] LABCLIA [id number] [place] [address] [place] Nucleated RBC (Bld) [#/Vol] 10*3/uL Normal <0.01 [facility] Comment on above: Order Comment: Speci men Type: BLOOD SPECIMENOrdering Facility: [facility] Address: [address] [place] [address] Performed By: #### 5 7021-8 ####[facility] LABCLIA [id number] [place] [address] [place] Nucleated RBC/100 WBC (Bld) [Ratio] 0.0 /100 WBC Normal [facility] Comment on above: Order Comment: Speci men Type: BLOOD SPECIMENOrdering Facility: [facility] Address: [address] [place] [address] Performed By: #### 5 7021-8 ####[facility] LABCLIA [id number] [place] [address] [place] Platelet mean volume (Bld) [Entitic vol] 10.4 fL Normal 9.0-12.7 [facility] Comment on above: Order Comment: Speci men Type: BLOOD SPECIMENOrdering Facility: [facility] Address: [address] [place] [address] Performed By: #### 5 7021-8 ####[facility] LABCLIA [id number] [place] [address] [place] Platelets (Bld) [#/Vol] 283 10*3/uL Normal 150-400 [facility] Comment on above: Order Comment: Speci men Type: BLOOD SPECIMENOrdering Facility: [facility] Address: [address] [place] [address] Performed By: #### 5 7021-8 ####[facility] LABIA [id number] [place] [address] [place] RBC (Bld) [#/Vol] 4.26 10*6/uL Normal 4.20-6.00 [facility] Comment on above: Order Comment: Speci men Type: BLOOD SPECIMENOrdering Facility: [facility] Address: [address] [place] [address] Performed By: #### 5 7021-8 ####[facility] LABIA [id number] [place] [address] [place] WBC (Bld) [#/Vol] 9.16 10*3/uL Normal 3.70-11.00 [facility] Comment on above: Order Comment: Speci men Type: BLOOD SPECIMENOrdering Facility: [facility] Address: [address] [place] [address] Performed By: #### 5 7021-8 ####[facility] LABIA [id number] [place] [address] [place] KNEE WO IVCON RIGHTon [facility] CT KNEE WO IVCON RTon 2022 CT KNEE WO IVCON RT * * *Final Report* * * DATE OF EXAM: Aug 29 2023 10:03AM [place] [id number] - CT KNEE WO IVCON RT / [...] Impression: Knee Osteoarthritis. No other significant abnormality. Sweatband Separator: PSCB Transcribe Date/Time: Aug 29 2023 10:39A Dictated by : LOCO CHO MD This examination was interpreted and the report reviewed and electronically signed by: DIAZ FAN MD on Aug 29 2023 10:44AM EST [id number] Normal [facility] ECG COMPLETEon 08-29-2023 ECG COMPLETE Ventricular Rate : 5 6 BPM Atrial Rate : 56 BPM P-R Interval : 168 ms QRS Duration : 78 ms Q-T Interval : 432 ms QTC Calculation(Bazett) : 416 ms Calculated P [place] : 35 degrees Calculated R [place] : -14 degrees Calculated T [place] : 5 degrees SINUS BRADYCARDIA WITH OCCASIONAL PREMATURE VENTRICULAR COMPLEXES OTHERWISE NORMAL ECG Confirmed by KAYLIE ESPAÑA MD ([id number]) on 09/02/2023 4:32:59 PM NAME : RONNIE ABEBE PID : [id number] : 1950 Gender : Male Race : ORD : [id number] Procedure Date : Aug 29 2023 08:30:40 [...] BISHOP Acquired by : ISABELLE LACEY Normal [facility] FERRITIN BLDon 08-29-2023 Ferritin [Mass/Vol] 266.0 ng/mL 30.3 - 5 65.7 ng/mL [facility] Ferritin SerPl-mCncon 2022 Ferritin [Mass/Vol] 266.0 ng/mL Normal 30.3-565.7 [facility] Comment on above: Order Comment: Speci men Type: BLOOD SPECIMENOrdering Facility: [facility] Address: [address] [place] [address] Performed By: #### 2 4321-2, 72757-2, 2276-4 ####[facility] LABCLIA [id number] [place] [id number] [place] HISTORY PHYSICALon 3 HISTORY PHYSICAL HNO ID: [id number] Author: Dwain Mcintosh APRN.KEYONNA Service: ? Author Type: Nurse Practitioner Type: HANDP Filed: 08/30/2023 11:30 AM Note Text: HISTORY AND PHYSICAL EXAMINATION SERVICE DATE: 08/29/2023 SERVICE TIME: 7:41 AM PRIMARY CARE PHYSICIAN: Merline Fuller MD REASON FOR VISIT: Ronnie Abebe is a 73 year old male who is scheduled for RIGHT ROBOTIC ASSISTED TOTAL KNEE ARTHROPLASTY on 09/04/2023 at [facility] at the request of Dr. Shaji Bishop [...] Pulmonary HTN, Dilated aorta. Negative for DVT/PE, [place], Cardiac surgery or stents. Denies current chest [...] tests revi (more content not included)... Normal [facility] Iron and Iron binding capaci ty panelon 08-29-2023 Iron [Mass/Vol] 43 ug/dL 41 - 186 ug/dL [facility] Iron binding capacity [Mass/Vol] 308 ug/dL 232 - 386 ug/dL [facility] Iron/TIBC [Molar ratio] 14.0 % Low 15.0 - 57.0 % [facility] Iron [Mass/Vol] 43 ug/dL Normal 41-186 [facility] Comment on above: Order Comment: Speci men Type: BLOOD SPECIMENOrdering Facility: [facility] Address: [address] [place] [address] Performed By: #### 2 4321-2, 48986-6, 2276-01 ####[facility] LABCLIA [id number] [place] [address] [place] Iron binding capacity [Mass/Vol] 308 ug/dL Normal 232-386 [facility] Comment on above: Order Comment: Speci men Type: BLOOD SPECIMENOrdering Facility: [facility] Address: [address] [place] [address] Performed By: #### 2 4321-2, 63012-2, 2276-01 ####[facility] LABCLIA [id number] [place] [id number] [place] Iron/TIBC [Molar ratio] 14.0 % Low 15.0-57.0 [facility] Comment on above: Order Comment: Speci men Type: BLOOD SPECIMENOrdering Facility: [facility] Address: [address] [place] [address] Performed By: #### 2 4321-2, 38465-5, 2276-01 ####[facility] LABCLIA [id number] [address] [place] TYPE AND SCREEN,30 DAYon ABO A Normal [facility] Comment on above: Order Comment: Speci men Type: BLOOD SPECIMENOrdering Facility: [facility] Address: [address] [place] [address] Performed By: #### T SCR30 ####CC [facility] BANKCLIA [id number] [address] [place] HISTORICAL AB SCR STATUS Negative Normal [facility] Comment on above: Order Comment: Speci men Type: BLOOD SPECIMENOrdering Facility: [facility] Address: [address] [place] [address] Performed By: #### T SCR30 ####[facility] B[facility] BANKCLIA [id number] [address] [place] Rh Nom (Bld) Positive Normal [facility] Comment on above: Order Comment: Speci men Type: BLOOD SPECIMENOrdering Facility: [facility] Address: [address] [place] [address] Performed By: #### T SCR30 ####[facility] BLOOD BANKCLIA [id number] [address] [place] XR KNEE 4V [...] RIGHT KNEE SEVERE IN THE MEDIAL COMPARTMENT Sweatband Separator: VI Transcribe Date/Time: Aug 29 2023 9:43A Dictated by : ADOLFO MAYNARD MD This examination was interpreted and the report reviewed and electronically signed by: ADOLFO MAYNARD MD on Aug 29 2023 9:44AM EST [id number] Normal [facility] XR KNEE GENERAL 4V AP BOTH/P A BOTH/LAT/MERC RIGHTon 08-29-2023 [facility] CNPNon 08-21-2023 CNPN Telephone (ORTHMN) RONNIE ABEBE ([id number]) 1950 M Date Time Provider Department 08/21/23 [...] min Stress: No Stress Concern Present (08/21/2023) [place] [employer] - Occupational Stress Questionnaire Feeling of Stress : Only a little Social Connections: Socially Integrated (08/21/2023) Social Connection and Isolation Panel [NHANES] Frequency of Communication with Friends and Family: More than three times a week Frequency of Social Gatherings with Friends and Family: Once a week Attends Jewish Services: 1 to 4 times per year [...] Year: No Utilities: Not At Risk (08/21/2023) [facility] Utilities Threatened with loss of utilities: No Area Deprivation Index: Medium Risk (04/29/2023) Area Deprivation Index National Score (1-100), lower number is lower risk: 73 State Score (1-10), lower number is lower risk: 6 Data from: https://www.olga lidia coombs.medicine.[facility]/. Last address used for calculation: [address] [place] [address] Equipment: Do you currently use any equipment [...] joint re (more content not included)... Normal [facility] CNOVon 06-07-2023 CNOV Office Visit (ORTHMN ) RONNIE ABEBE ([id number]) 1950 [place] Date Time Provider Department 06/07/23 [...] Last 180 days 05/07/23 Shaji Bishop MD, [id number] Primary osteoarthritis of left knee, Admission (Discharged) [...] post-operative pain [G89.18] Order(s):CONSULT TO PHYSICAL THERAPY [9025] Order #: [id number]: 1 FUTURE meloxicam (MOBIC) 15 mg tabletTake [...] mouth once (more content not included)... Normal [facility] XR KNEE 3V AP/LAT/MERCHANT L Ton [...] Expected postsurgical appearance. No other significant abnormality. Sweatband Separator: VI Transcribe Date/Time: Jun 07 2023 9:37A Dictated by : JAMEL RICKETTS MD This examination was interpreted and the report reviewed and electronically signed by: JAMEL RICKETTS MD on Jun 07 2023 9:38AM EST [id number] Normal [facility] XR KNEE POST OP 3V AP/LAT/ME RCHANT LEFTon 06-07-2023 [facility] Charissa 05-09-2023 SHAISTA Telephone (ORTHMN) RONNIE ABEBE ([id number]) 1950 M Date Time Provider Department 05/09/23 [...] Status:Closed by NICOLE MEEKS RN on 05/09/23 [facility] ANES POSTPROC EVALon 023 ANES POSTPROC EVAL HNO ID: [id number] Author: Vineet Martinez MD Service: ? Author Type: Anesthesiologist Type: Anesthesia Postprocedure Evaluation Filed: 05/07/2023 2:00 PM Note Text: POST ANESTHESIA EVALUATION NOTE : 1950 Procedure Summary Date: 05/07/23 [address] Start: 822 Anesthesia Stop: 1131 [...] May 07, 2023 TIME: 11:58 AM CSN: [id number] Normal [facility] ANES PRE-OPon 05-07-2023 ANES PRE-OP HNO ID: [id number] Author: Vineet Hensley MD Service: ? Author Type: Anesthesiologist Type: Anesthesia Preprocedure Evaluation Filed: 05/07/2023 8:36 AM Note Text: ANESTHESIOLOGY DAY OF SURGERY NOTE : 1950 Procedure Information Anesthesia Start Date/Time: 05/07/23822 Procedure: ROBOTIC ASSISTED TOTAL KNEE ARTHROPLASTY (Left: Knee) Location: [address] Surgeons: Shaji Bishop MD Estimated body [...] and consent discussed: yes. Patient / Responsible Green Party agrees to proceed: yes Patient / Surrogate [...] May 07, 2023 TIME: 8:36 AM CSN: [id number] [facility] BRIEF OP NOTon 05-07-2023 BRIEF OP NOT HNO ID: [id number] Author: Blanco Maza MD Service: Orthopaedic Surgery Author Type: Resident Type: Brief Op Note Filed: 05/07/2023 11:17 AM Note Text: BRIEF OPERATIVE / PROCEDURE NOTE LOG ID: [id number] SURGERY/PROCEDURE DATE: 05/07/2023 INCISION/PROCEDURE START TIME: 9:00 AM INCISION CLOSE/PROCEDURE END TIME: 11:10 AM SURGEON(S)/PROCEDURALI ST(S) AND CLINICAL RESEARCH ASSOCIATE(S): Surgeon(s) and Role: * Shaji Bishop MD - Primary * Blanco Meyer MD - Resident - Assisting * Malcom Azul MD - Fellow Physician Music Engineer: Luma Garcia PA-C Communication Assistant: Kaden Raman (), SURGERY/PROCEDURE(S): Left robotic-assisted total knee arthroplasty ANESTHESIA: Spinal FINDINGS: Left knee osteoarthritis ESTIMATED BLOOD LOSS: 100 mls SPECIMENS: None COMPLICATIONS: None CLOSURE TECHNIQUE: Primary PRE-OP/PRE-PROCEDURE DIAGNOSIS: Left knee osteoarthritis POST-OP/POST-PROCEDURE DIAGNOSIS: Same as Preop SIGNATURE: Blanco Maza MD PATIENT NAME: Ronnie Abebe DATE: May 07, 2023 TIME: 11:16 AM Normal [facility] [facility] HNO ID: [id number] Author: Malcom Azul MD Service: Orthopaedic Surgery [...] The patient was electively admitted to the [facility] on 05/07/2023. Surgery was scheduled and [...] May 07, 2023 TIME: 8:12 AM PAGER: [phone] Normal [facility] CONSULTon 05-07-2023 CONSULT HNO ID: [id number] Author: Michelet Hsu MD Service: Anesthesiology Author [...] Glucosamine Sulfa (more content not included)... Normal [facility] NURSING PROGon 05-07-2023 NURSING PROG HNO ID: [id number] Author: Raj Jarquin RN Service: ? Author Type: Registered Nurse Type: Nursing Progress Note Filed: 05/07/2023 12:38 PM Note Text: Admission/Transfer Note PATIENT NAME: Ronnie Abebe Patient Location: M081 006/M081-06 Room: [place] [address] ([facility]-06) Patient admitted from PACU via bed in stable condition. Actions taken: Patient oriented to room, call light function, prescribed activities, and Patient rights. Patient belongings with patient. This note was completed by: Raj Enrique [facility] OPERATIVE NOon 05-07-2023 OPERATIVE NO HNO ID: [id number] Author: Shaji Bishop MD Service: Orthopaedic Surgery Author Type: Physician Type: Operative Report Filed: 05/08/2023 8:59 AM Note Text: [place] [address] [place] OPERATIVE NOTE PATIENT NAME: Ronnie Abebe AGE: [age] year old LOG ID: [id number] SURGERY DATE: 05/07/2023 SURGEON AND ASSISTANTS: Surgeon(s) [...] acid was used for blood conservation. The xPeerient robot was prepared and draped. The Robotic [...] skin and (more content not included)... Normal [facility] THERAPY NTon 05-07-2023 THERAPY NT HNO ID: [id number] Author: Valeria January, PT Service: Physical Therapy Author Type: Physical Therapist Type: Therapy (PT/OT/Speech/Resp) Filed: 05/07/2023 2:48 PM Note Text: Physical Therapy Evaluation SERVICE DATE: 05/07/2023 SERVICE TIME: 1300 to 1423 ROOM: [place] [address] Total Joint Replacement Discharge Readiness: Cleared from [...] Family Education/Traini (more content not included)... Normal [facility] TYPE + SCREENon 05-07-2023 ABO A Normal [facility] Comment on above: Order Comment: Speci men Type: BLOOD SPECIMENOrdering Facility: [facility] Address: [address] [place] [address] Performed By: #### T SCR ####CC MAIN BLOOD BANKCLIA [id number] [address] HISTORICAL AB SCR STATUS Negative Normal [facility] Comment on above: Order Comment: Speci men Type: BLOOD SPECIMENOrdering Facility: [facility] Address: [address] [place] [address] Performed By: #### T SCR ####CC MAIN BLOOD BANKCLIA [id number] [address] Rh Nom (Bld) Positive Normal [facility] Comment on above: Order Comment: Speci men Type: BLOOD SPECIMENOrdering Facility: [facility] Address: [address] [place] [address] Performed By: #### T SCR ####CC MAIN BLOOD BANKIA [id number] [address] TYPE AND SCREEN EXPIRATION 05/10/2023 23:59 Normal [facility] Comment on above: Order Comment: Speci men Type: BLOOD SPECIMENOrdering Facility: [facility] Address: [address] [place] [address] Performed By: #### T SCR ####CC MAIN BLOOD BANKCLIA [id number] [address] CNPLianna 05-06-2023 KEYONNAN Telephone (ORTHMS) MISRONNIE ([id number]) 1950 M Date Time Provider Department 05/06/23 NICOLE MEEKS During your visit today, we recorded the following information about you: Nicole Meeks RN 05/06/2023 3:29 PM Signed Spoke with patient and informed them of arrival time of 5:00am for surgery tomorrow with Dr. Bishop. Requested patient to report to [address] J-1-9 at that time. Reminded patient to [...] by NICOLE MEEKS RN on 05/06/23 Normal [facility] ECHOon 04-30-2023 Echocardiography Echocardiography Report: Transthoracic Echo [facility] J35 Date of service: 04/30/2023 11:14:08 AM SERVICE ENGINEER Ordering physician: VALERIA FARMER Indication: Pre Op [...] * * Final * * * CC [employer] Image : [id number] Normal [facility] Albumin SerPl-mCncon 023 Albumin [Mass/Vol] 4.2 g/dL Normal 3.9-4.9 [facility] Comment on above: Order Comment: Speci men Type: BLOOD SPECIMENOrdering Facility: [facility] Address: [address] [place] [address] Performed By: #### 2 4323-8, 1751-7, 70824-8, 2276-4 ####[facility] LABCLIA [id number] [place] [address] [place] CBC W Auto Differential pane l (Bld)on 04-29-2023 Basophils (Bld) [#/Vol] 0.05 10*3/uL Normal <0.11 [facility] Comment on above: Order Comment: Winstoni kristine Type: BLOOD SPECIMENOrdering Facility: [facility] Address: [address] [place] [address] Performed By: #### 5 7021-8, 67630-2 ####[facility] LABCLIA [id number] [place] [address] [place] Basophils/100 WBC (Bld) 0.5 % Normal [facility] Comment on above: Order Comment: Celina carmona Type: BLOOD SPECIMENOrdering Facility: [facility] Address: [address] [place] [address] Performed By: #### 5 7021-8, 58120-9 ####[facility] LABCLIA [id number] [place] [address] [place] Differential cell count method Nom (Bld) Auto Normal [facility] Comment on above: Order Comment: Speci men Type: BLOOD SPECIMENOrdering Facility: [facility] Address: [address] [place] [address] Performed By: #### 5 7021-8, 49959-0 ####[facility] LABCLIA [id number] [place] [address] [place] Eosinophils (Bld) [#/Vol] 0.17 10*3/uL Normal <0.46 [facility] Comment on above: Order Comment: Speci men Type: BLOOD SPECIMENOrdering Facility: [facility] Address: [address] [place] [address] Performed By: #### 5 7021-8, 41130-4 ####[facility] LABIA [id number] [place] [address] [place] Eosinophils/100 WBC (Bld) 1.8 % Normal [facility] Comment on above: Order Comment: Speci men Type: BLOOD SPECIMENOrdering Facility: [facility] Address: [address] [place] [address] Performed By: #### 5 7021-8, 41465-0 ####[facility] LABCLIA [id number] [place] [address] [place] Erythrocyte distribution width (RBC) [Ratio] 12.8 % Normal 11.5-15.0 [facility] Comment on above: Order Comment: Speci men Type: BLOOD SPECIMENOrdering Facility: [facility] Address: [address] [place], [place] [address] Performed By: #### 5 7021-8, 77172-3 ####[facility] LABCLIA [id number] [place] [address] [place] Hematocrit (Bld) [Volume fraction] 44.8 % Normal 39.0-51.0 [facility] Comment on above: Order Comment: Speci men Type: BLOOD SPECIMENOrdering Facility: [facility] Address: [address] [place] [address] Performed By: #### 5 7021-8, 01472-9 ####[facility] LABCLIA [id number] [place] [address] [place] Hemoglobin (Bld) [Mass/Vol] 14.1 g/dL Normal 13.0-17.0 [facility] Comment on above: Order Comment: Speci men Type: BLOOD SPECIMENOrdering Facility: [facility] Address: [address] [place], [place] [address] Performed By: #### 5 7021-8, 97442-9 ####[facility] LABCLIA [id number] [place] [address] [place] Immature granulocytes (Bld) [#/Vol] 0.05 10*3/uL Normal <0.10 [facility] Comment on above: Order Comment: Speci men Type: BLOOD SPECIMENOrdering Facility: [facility] Address: [address] [place] [address] Performed By: #### 5 7021-8, 88319-8 ####[facility] LABCLIA [id number] [place] [address] [place] Immature granulocytes/100 WBC (Bld) 0.5 % Normal [facility] Comment on above: Order Comment: Speci men Type: BLOOD SPECIMENOrdering Facility: [facility] Address: [address] [place] [address] Performed By: #### 5 7021-8, 70744-1 ####[facility] LABCLIA [id number] [place] [address] [place] Lymphocytes (Bld) [#/Vol] 2.21 10*3/uL Normal 1.00-4.00 [facility] Comment on above: Order Comment: Speci men Type: BLOOD SPECIMENOrdering Facility: [facility] Address: [address] [place] [place] [address] Performed By: #### 5 7021-8, 36436-4 ####[facility] LABIA [id number] [address] [place] Lymphocytes/100 WBC (Bld) 23.9 % Normal [facility] Comment on above: Order Comment: Speci men Type: BLOOD SPECIMENOrdering Facility: [facility] Address: [address] [place] [place] [address] Performed By: #### 5 7021-8, 03486-1 ####[facility] LABIA [id number] [address] [place] MCH (RBC) [Entitic mass] 32.3 pg Normal 26.0-34.0 [facility] Comment on above: Order Comment: Speci men Type: BLOOD SPECIMENOrdering Facility: [facility] Address: [address] [place] [address] Performed By: #### 5 7021-8, 21536-4 ####[facility] LABIA [id number] [address] [place] MCHC (RBC) [Mass/Vol] 31.5 g/dL Normal 30.5-36.0 [facility] Comment on above: Order Comment: Speci men Type: BLOOD SPECIMENOrdering Facility: [facility] Address: [address] [place], [place] [address] Performed By: #### 5 7021-8, 60106-0 ####[facility] [id number] [address] [place] MCV (RBC) [Entitic vol] 102.5 fL High 80.0-100.0 [facility] Comment on above: Order Comment: Speci men Type: BLOOD SPECIMENOrdering Facility: [facility] Address: [address] [place] [address] Performed By: #### 5 7021-8, 00379-0 ####[facility] LABCLIA [id number] [place] [address] [place] Monocytes (Bld) [#/Vol] 0.95 10*3/uL High <0.87 [facility] Comment on above: Order Comment: Speci men Type: BLOOD SPECIMENOrdering Facility: [facility] Address: [address] [place] [address] Performed By: #### 5 7021-8, 80791-2 ####[facility] LABCLIA [id number] [place] [address] [place] Monocytes/100 WBC (Bld) 10.3 % Normal [facility] Comment on above: Order Comment: Speci men Type: BLOOD SPECIMENOrdering Facility: [facility] Address: [address] Performed By: #### 5 7021-8, 55853-3 ####[facility] LABCLIA [id number] [place] [address] [place] Neutrophils (Bld) [#/Vol] 5.80 10*3/uL Normal 1.45-7.50 [facility] Comment on above: Order Comment: Speci men Type: BLOOD SPECIMENOrdering Facility: [facility] Address: [address] [place] [address] Performed By: #### 5 7021-8, 11831-3 ####[facility] LABCLIA [id number] [place] [address] [place] Neutrophils/100 WBC (Bld) 63.0 % Normal [facility] Comment on above: Order Comment: Speci men Type: BLOOD SPECIMENOrdering Facility: [facility] Address: [address] Performed By: #### 5 7021-8, 55465-9 ####[facility] LABCLIA [id number] [place] [address] [place] Nucleated RBC (Bld) [#/Vol] 10*3/uL Normal <0.01 [facility] Comment on above: Order Comment: Speci men Type: BLOOD SPECIMENOrdering Facility: [facility] Address: [address] [place] [address] Performed By: #### 5 7021-8, 02844-2 ####[facility] LABCLIA [id number] [place] [address] [place] Nucleated RBC/100 WBC (Bld) [Ratio] 0.0 /100 WBC Normal [facility] Comment on above: Order Comment: Speci men Type: BLOOD SPECIMENOrdering Facility: [facility] Address: [address] [place], [place] [address] Performed By: #### 5 7021-8, 17371-7 ####[facility] LABIA [id number] [place] [address] [place] Platelet mean volume (Bld) [Entitic vol] 11.1 fL Normal 9.0-12.7 [facility] Comment on above: Order Comment: Speci men Type: BLOOD SPECIMENOrdering Facility: [facility] Address: [address] [place] [address] Performed By: #### 5 7021-8, 65153-7 ####[facility] LABIA [id number] [place] [address] [place] Platelets (Bld) [#/Vol] 272 10*3/uL Normal 150-400 [facility] Comment on above: Order Comment: Speci men Type: BLOOD SPECIMENOrdering Facility: [facility] Address: [address] [place], [place] [address] Performed By: #### 5 7021-8, 83677-2 ####[facility] LABIA [id number] [place] [address] [place] RBC (Bld) [#/Vol] 4.37 10*6/uL Normal 4.20-6.00 [facility] Comment on above: Order Comment: Speci men Type: BLOOD SPECIMENOrdering Facility: [facility] Address: [address] [place] [address] Performed By: #### 5 7021-8, 21711-4 ####[facility] LABCLIA [id number] [address] OF [facility] WBC (Bld) [#/Vol] 9.23 10*3/uL Normal 3.70-11.00 [facility] Comment on above: Order Comment: Speci men Type: BLOOD SPECIMENOrdering Facility: [facility] Address: [address] [place] [address] Performed By: #### 5 7021-8, 30405-8 ####[facility] LABCLIA [id number] [address] OF [facility] CNOVon 04-29-2023 CNOV Office Visit (ORTHMN ) RONNIE ABEBE ([id number]) 1950 Date Time Provider Department 04/29/23 10:00 [...] Joint Ar (more content not included)... Normal [facility] CT KNEE WO IVCON LEFTon - [facility] CT KNEE WO IVCON LTon 2022 CT KNEE WO IVCON LT * * *Final Report* * * DATE OF EXAM: Apr 29 2023 2:25PM [facility] [place] IVCON LT [...] is no unexpected acute or aggressive abnormality. Sweatband Separator: PSCB Transcribe Date/Time: Apr 29 2023 2:31P Dictated by : OSMAR ESPINOZA MD This examination was interpreted and the report reviewed and electronically signed by: OSMAR ESPINOZA MD on Apr 29 2023 2:34PM EST [id number] Normal [facility] Comprehensive metabolic 2000 panelon 04-29-2023 Albumin [Mass/Vol] 4.3 g/dL Normal 3.9-4.9 [facility] Comment on above: Order Comment: Speci men Type: BLOOD SPECIMENOrdering Facility: [facility] Address: [address] [place], [place] [address] Performed By: #### 2 4323-8, 1751-7, 06972-0, 2276-4 ####[facility] [id number] [place] [address] [place] ALP [Catalytic activity/Vol] 73 U/L Normal 38-113 [facility] Comment on above: Order Comment: Speci men Type: BLOOD SPECIMENOrdering Facility: [facility] Address: [address] [place], [place] [address] Performed By: #### 2 4323-8, 1751-7, 19157-3, 2276-4 ####[facility] LABIA [id number] [address] [place] ALT [Catalytic activity/Vol] 23 U/L Normal 10-54 [facility] Comment on above: Order Comment: Speci men Type: BLOOD SPECIMENOrdering Facility: [facility] Address: [address] [place] [address] Performed By: #### 2 4323-8, 1751-7, 57072-5, 2276-4 ####[facility] LABCLIA [id number] [place] [address] [place] Anion gap [Moles/Vol] 16 mmol/L Normal 9-18 [facility] Comment on above: Order Comment: Speci men Type: BLOOD SPECIMENOrdering Facility: [facility] Address: [address] [place] [address] Performed By: #### 2 4323-8, 1751-7, 02374-3, 6-4 ####[facility] LABCLIA [id number] [place] [address] [place] AST [Catalytic activity/Vol] 24 U/L Normal 14-40 [facility] Comment on above: Order Comment: Speci men Type: BLOOD SPECIMENOrdering Facility: [facility] Address: [address] [place] [address] Performed By: #### 2 4323-8, 1751-7, 69305-1, 2275-4 ####[facility] LABCLIA [id number] [place] [address] [place] Bilirubin [Mass/Vol] 0.6 mg/dL Normal 0.2-1.3 [facility] Comment on above: Order Comment: Speci men Type: BLOOD SPECIMENOrdering Facility: [facility] Address: [address] [place], [place] [address] Performed By: #### 2 4323-8, 1751-7, 52832-3, 6-4 ####[facility] LABCLIA [id number] [place] [address] [place] Calcium [Mass/Vol] 9.3 mg/dL Normal 8.5-10.2 [facility] Comment on above: Order Comment: Speci men Type: BLOOD SPECIMENOrdering Facility: [facility] Address: [address] [place], [place] [address] Performed By: #### 2 4323-8, 1751-7, 89500-1, 2276-4 ####[facility] LABCLIA [id number] [place] [address] [place] Chloride [Moles/Vol] 104 mmol/L Normal 97-105 [facility] Comment on above: Order Comment: Speci men Type: BLOOD SPECIMENOrdering Facility: [facility] Address: [address] [place] [address] Performed By: #### 2 4323-8, 1751-7, 83706-2, 2276-4 ####[facility] LABCLIA [id number] [place] [address] [place] CO2 [Moles/Vol] 17 mmol/L Low 22-30 [facility] Comment on above: Order Comment: Speci men Type: BLOOD SPECIMENOrdering Facility: [facility] Address: [address] [place] [address] Performed By: #### 2 4323-8, 1751-7, 02862-0, 6-4 ####[facility] LABCLIA [id number] [place] [address] [place] Creatinine [Mass/Vol] 1.05 mg/dL Normal 0.73-1.22 [facility] Comment on above: Order Comment: Speci men Type: BLOOD SPECIMENOrdering Facility: [facility] Address: [address] [place], [place] [address] Performed By: #### 2 4323-8, 175-7, 65123-4, 6-4 ####[facility] LABCLIA [id number] [place] [address] [place] ESTIMATED GLOMERULAR FILTRATION RATE 75 mL/min/1.73m??? Normal >=60 [facility] Comment on above: Order Comment: Speci men Type: BLOOD SPECIMENOrdering Facility: [facility] Address: [address] [place] [address] Result Comment: Sarah mated Glomerular Filtration Rate [...] GFR. Performed By: #### 2 4323-8, 175-7, 35871-0, 6-4 ####[facility] LABIA [id number] [place] [id number] [place] Glucose [Mass/Vol] 84 mg/dL Normal 74-99 [facility] Comment on above: Order Comment: Celina carmona Type: BLOOD SPECIMENOrdering Facility: [facility] Address: [address] [place], [place] [address] Result Comment: The [place] Diabetes Association (ADA) provides guidance for cutoff [...] Standards of Medical Care in Diabetes 2016, [place] Diabetes Association. Diabetes Care. 2016.39(Suppl 1). Performed By: #### 2 4323-8, 1751-7, 10245-2, 6-4 ####[facility] LABCLIA [id number] [place] [id number] [place] Potassium [Moles/Vol] 5.2 mmol/L High 3.7-5.1 [facility] Comment on above: Order Comment: Celina carmona Type: BLOOD SPECIMENOrdering Facility: [facility] Address: [address] [place], [place] [address] Performed By: #### 2 4323-8, 1751-7, 74850-3, 2276-4 ####[facility] LABIA [id number] [place] [address] [place] Protein [Mass/Vol] 7.3 g/dL Normal 6.3-8.0 [facility] Comment on above: Order Comment: Speci men Type: BLOOD SPECIMENOrdering Facility: [facility] Address: [address] [place] [address] Performed By: #### 2 4323-8, 175-7, 55438-8, 6-4 ####[facility] [id number] [place] [address] [place] Sodium [Moles/Vol] 137 mmol/L Normal 136-144 [facility] Comment on above: Order Comment: Speci men Type: BLOOD SPECIMENOrdering Facility: [facility] Address: [address] [place] [address] Performed By: #### 2 4323-8, 175-7, 27197-5, 6-4 ####[facility] LABIA [id number] [place] [address] [place] Urea nitrogen [Mass/Vol] 23 mg/dL Normal 9-24 [facility] Comment on above: Order Comment: Speci men Type: BLOOD SPECIMENOrdering Facility: [facility] Address: [address] [place] [address] Performed By: #### 2 4323-8, 175-7, 12983-2, 6-4 ####[facility] LABIA [id number] [place] [address] [place] ECG COMPLETEon 04-29-2023 ECG COMPLETE Ventricular Rate : 5 6 BPM Atrial Rate : 56 BPM P-R Interval : 164 ms QRS Duration : 82 ms Q-T Interval : 468 ms QTC Calculation(Bazett) : 451 ms Calculated P Osco : 37 degrees Calculated R [place]o : -8 degrees Calculated T [place]o : 9 degrees SINUS BRADYCARDIA WITH FREQUENT PREMATURE VENTRICULAR COMPLEXES IN A PATTERN OF BIGEMINY * ABNORMAL ECG Confirmed by FAVIAN MALLORY MD ([id number]) on 05/01/2023 10:45:18 AM NAME : RONNIE ABEBE PID : [id number] : 1950 Gender : Male Race : ORD : [id number] Procedure Date : Apr 29 2023 11:56:39 Edit Date : May 01 2023 10:45:24 Diagnosis: SINUS BRADYCARDIA WITH FREQUENT PREMATURE VENTRICULAR COMPLEXES IN A PATTERN OF BIGEMINY * ABNORMAL ECG Confirmed by FAVIAN MALLORY MD ([id number]) on 05/01/2023 10:45:18 AM Test Reason : Location : 119 : A17 A17 Overread By : FAVIAN MALLORY MD Edited By : FAVIAN MALLORY MD Referred By : LUMA GARCIA Acquired by : ANTONIO WAKEFIELD Normal [facility] Ferritin SerPl-mCncon 2022 Ferritin [Mass/Vol] 346.0 ng/mL Normal 30.3-565.7 [facility] Comment on above: Order Comment: Speci men Type: BLOOD SPECIMENOrdering Facility: [facility] Address: [address] [place] [address] Performed By: #### 2 4323-8, 1751-7, 63434-9, 2276-4 ####[facility] LABCLIA [id number] [facility] [id number] [address] [place] Folate SerPl-mCncon 04-29-20 23 Folate [Mass/Vol] ng/mL Normal >4.7 [facility] Comment on above: Order Comment: Speci men Type: BLOOD SPECIMENOrdering Facility: [facility] Address: [address] [place] [address] Result Comment: A re sult of > 20 ng/mL is not necessarily indicative of a pathologic or treatable condition: it reflects a limitation of the test methodology. Assay reference range: 4.8 to 24.2 ng/mL. Suitable for detection of folate deficiency. Reference: Folate III (Folate III) [package insert V 1.0 Cam[place]onian]. [facility], [place], [place]: August 2015. Performed By: #### 2 132-9, 2284-8 ####[facility] LABCLIA [id number] [place] [address] [place] HISTORY PHYSICALon HISTORY PHYSICAL HNO ID: [id number] Author: Ashleigh Serra MD Service: ? Author [...] fevers. Neuro: No history of TIA's, stroke, STUDIO TECHNICIAN tumor, impaired sensorium, hemiplegia, paraplegia or quadraplegia. No neurological symptoms or problems. Respiratory: No history of current cough or dyspnea, or pneumonia in the past 6 weeks. No history of respiratory/pulmonary symptoms or problems. 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 Normal [facility] Iron and Iron binding capaci ty panelon 04-29-2023 Iron [Mass/Vol] 92 ug/dL Normal 41-186 [facility] Comment on above: Order Comment: Speci men Type: BLOOD SPECIMENOrdering Facility: [facility] Address: [address] [place], [place] [address] Performed By: #### 2 4323-8, 1751-7, 08507-4, 6-4 ####[facility] LABCLIA [id number] [place] [address] [place] Iron binding capacity [Mass/Vol] 295 ug/dL Normal 232-386 [facility] Comment on above: Order Comment: Speci men Type: BLOOD SPECIMENOrdering Facility: [facility] Address: [address] [place] [address] Performed By: #### 2 4323-8, 1751-7, 61436-8, 2275-4 ####[facility] LABCLIA [id number] [place] [id number] [place] Iron/TIBC [Molar ratio] 31.2 % Normal 15.0-57.0 [facility] Comment on above: Order Comment: Speci men Type: BLOOD SPECIMENOrdering Facility: [facility] Address: [address] [address] Performed By: #### 2 4323-8, 1751-7, 73324-4, 2276-4 ####[facility] LABCLIA [id number] [place] [address] [place] Retics #on 04-29-2023 Reticulocytes (Bld) [#/Vol] 0.47956 10*3/uL Normal 0.018-0.100 [facility] Comment on above: Order Comment: Speci men Type: BLOOD SPECIMENOrdering Facility: [facility] Address: [address] [place] [address] Performed By: #### 5 7021-8, 08959-7 ####[facility] LABCLIA [id number] [place] [address] [place] [facility] Reticulocytes (Bld) [#/Vol]o n 04-29-2023 Reticulocytes/100 RBC (Bld) 2.0 % Normal 0.4-2.0 [facility] Comment on above: Order Comment: Speci men Type: BLOOD SPECIMENOrdering Facility: [facility] Address: [address] [place] [address] Performed By: #### 5 7021-8, 21605-5 ####[facility] LABCLIA [id number] [place] [address] [place] Vit B12 SerPl-mCncon 023 Cobalamin (Vitamin B12) [Mass/Vol] 409 pg/mL Normal 232-1245 [facility] Comment on above: Order Comment: Speci men Type: BLOOD SPECIMENOrdering Facility: [facility] Address: [address] [place] [address] Performed By: #### 2 132-9, 2284-8 ####[facility] LABCLIA [id number] [place] [address] [place] CBC AUTO DIFFon 02-26-2023 BASO # 0.1 103/ul Normal 0.0-0.1 [facility] Comment on above: Performed By: #### C BC #### [facility] [address] [address] [address] Luci Christian Basophils/100 WBC (Bld) 0.5 % Normal 0.2-2.0 [facility] Comment on above: Performed By: #### C BC #### [facility] [address] [address] [address] Luci Christian EO # 0.3 103/ul Normal 0.0-0.7 [facility] Comment on above: Performed By: #### C BC #### [facility] [address] [place] [address] Dr. Luci Christian Eosinophils/100 WBC (Bld) 3.5 % Normal 0.9-7.0 [facility] Comment on above: Performed By: #### C BC #### [facility] [address] [place] [address] Dr. Luci Christian Erythrocyte distribution width (RBC) [Ratio] 12.6 % Normal 11.0-15.0 [facility] Comment on above: Performed By: #### C BC #### [facility] [address] [place] [address] Dr. Luci Christian Hematocrit (Bld) [Volume fraction] 46.5 % Normal 42.0-54.0 [facility] Comment on above: Performed By: #### C BC #### [facility] [address] [place] [address] Dr. Luci Christian Hemoglobin (Bld) [Mass/Vol] 14.9 g/dL Normal 14.0-18.0 [facility] Comment on above: Performed By: #### C BC #### [facility] [address] [place] [address] Dr. Luci Christian IG # 0.06 10e3/ul Critically high 0.00-0.03 [facility] Comment on above: Performed By: #### C BC #### [facility] [address] [place] [address] Dr. Luci Christian IG % 0.7 % Critically high 0.0-0.5 [facility] Comment on above: Performed By: #### C BC #### [facility] [address] [place] [address] Dr. Luci Christian LYMPH # 2.4 103/ul Normal 1.2-3.8 [facility] Comment on above: Performed By: #### C BC #### [facility] [address] [place] [address] Dr. Luci Christian Lymphocytes/100 WBC (Bld) 26.4 % Normal 20.5-60.0 [facility] Comment on above: Performed By: #### C BC #### [facility] [address] [place] [address] Dr. Luci Christian MANUAL DIFF REQ NO Normal [facility] Comment on above: Performed By: #### C BC #### [facility] [address] [place] [address] Dr. Luci Christian MCH (RBC) [Entitic mass] 32.6 pg Normal 25.9-34.0 [facility] Comment on above: Performed By: #### C BC #### [facility] [address] [place] [address] Dr. Luci Christian MCHC (RBC) [Mass/Vol] 32.0 g/dL Normal 29.9-35.2 [facility] Comment on above: Performed By: #### C BC #### [facility] [address] [place] [address] Dr. Luci Christian MCV (RBC) [Entitic vol] 101.8 fL Critically high 80.0-94.0 [facility] Comment on above: Performed By: #### C BC #### [facility] [address] [place] [address] Dr. Luci Christian MONO # 1.0 103/ul Critically high 0.3-0.8 [facility] Comment on above: Performed By: #### C BC #### [facility] [address] [place] [address] Dr. Luci Christian Monocytes/100 WBC (Bld) 10.6 % Normal 1.7-12.0 [facility] Comment on above: Performed By: #### C BC #### [facility] [address] [place] [address] Dr. Luci Christian NEUT # 5.4 103/ul Normal 1.4-6.5 [facility] Comment on above: Performed By: #### C BC #### [facility] [address] [place] [address] Dr. Luci Christian Neutrophils/100 WBC (Bld) 58.3 % Normal 43.0-75.0 [facility] Comment on above: Performed By: #### C BC #### [facility] [address] [place] [address] Dr. Luci Christian Platelet mean volume (Bld) [Entitic vol] 10.3 fL Normal 9.5-13.5 [facility] Comment on above: Performed By: #### C BC #### [facility] [address] [place] [address] Dr. Luci Christian PLT 273 103/ul Normal 150-450 [facility] Comment on above: Performed By: #### C BC #### [facility] [address] [place] [address] Dr. Luci Christian RBC 4.57 106/ul Critically low 4.70-6.[address] [facility] Comment on above: Performed By: #### C BC #### [facility] [address] [place] [address] Dr. Luci Christian WBC 9.2 103/ul Normal 4.0-11.0 [facility] Comment on above: Performed By: #### C BC #### [facility] [address] [place] [address] Dr. Luci Christian FREE THYROXINE INDEX T7on FTI 2.31 Normal 1.30-4.50 [facility] Comment on above: Performed By: #### T 7, LIPID, CMP, TSH #### [facility] [address] [place] [address] Dr. Luci Christian T3U 34.0 % Normal 33.0-40.0 [facility] Comment on above: Performed By: #### T 7, LIPID, CMP, TSH #### [facility] [address] [address] [address] Luci Christian T4 [Mass/Vol] 6.80 ug/dL Normal 4.50-12.10 [facility] Comment on above: Performed By: #### T 7, LIPID, CMP, TSH #### [facility] [address] [address] [address] Luci Christian LIPID PROFILEon 02-26-2023 CHOL-HDL RATIO NORM SEE BELOW Normal [facility] Comment on above: Result Comment: 3.3 - 4.4 LOW RISK 4.4 - 7.1 AVERAGE RISK 7.1 - 11.0 MODERATE RISK >11.0 HIGH RISK Performed By: #### T 7, LIPID, CMP, TSH #### [facility] [address] [address] [address] Luci Christian Cholesterol [Mass/Vol] 165 mg/dL Normal <=200 [facility] Comment on above: Performed By: #### T 7, LIPID, CMP, TSH #### [facility] [address] [address] [address] Luci Christian Cholesterol in HDL [Mass/Vol] 56 mg/dL Normal 40-60 [facility] Comment on above: Performed By: #### T 7, LIPID, CMP, TSH #### [facility] [address] [address] [address] Luci Christian Cholesterol in LDL [Mass/Vol] 66.4 mg/dL Normal [facility] Comment on above: Performed By: #### T 7, LIPID, CMP, TSH #### [facility] [address] [address] [address] Luci Christian Cholesterol.total/Cho lesterol in HDL [Mass ratio] 2.9 {ratio} Normal [facility] Comment on above: Performed By: #### T 7, LIPID, CMP, TSH #### [facility] [address] [address] [address] Luci Christian HDL NORMAL > or = 60 mg/dl - LO W CARDIOVASCULAR RISK <40 mg/dl - HIGH CARDIOVASCULAR RISK Normal [facility] Comment on above: Performed By: #### T 7, LIPID, CMP, TSH #### [facility] [address] [address] [address] Luci Christian LDL CALC NORMAL SEE BELOW Normal [facility] Comment on above: Result Comment: <100 mg/dl OPTIMAL 100 - 129 mg/dl NEAR OR ABOVE OPTIMAL 130 - 159 mg/dl BORDERLINE HIGH 160 - 189 mg/dl HIGH >190 mg/dl VERY HIGH Performed By: #### T 7, LIPID, CMP, TSH #### [facility] [address] [address] [address] Luci Christian Triglyceride [Mass/Vol] 213 mg/dL Critically high <=150 [facility] Comment on above: Performed By: #### T 7, LIPID, CMP, TSH #### [facility] [address] [address] [address] Luci Christian VLDL CALC 42.6 mg/dL Normal [facility] Comment on above: Performed By: #### T 7, LIPID, CMP, TSH #### [facility] [address] [address] [address] Luci Christian OCC BLD IMMUNO SCREENon OCCULT BLOOD Negative Normal NEGATIVE [facility] Comment on above: Performed By: #### O BSCRN #### [facility] [address] [address] [address] Luci Christian PROF 14(COMP METB)on 023 Albumin [Mass/Vol] 3.7 g/dL Normal 3.4-5.0 [facility] Comment on above: Performed By: #### T 7, LIPID, CMP, TSH #### [facility] [address] [address] [address] Luci Christian Albumin/Globulin [Mass ratio] 0.8 {ratio} Normal [facility] Comment on above: Performed By: #### T 7, LIPID, CMP, TSH #### [facility] [address] [address] [address] Luci Christian ALP [Catalytic activity/Vol] 70 U/L Normal 46-116 [facility] Comment on above: Performed By: #### T 7, LIPID, CMP, TSH #### [facility] [address] [address] [address] Luci Christian ALT [Catalytic activity/Vol] 36 U/L Normal 16-63 [facility] Comment on above: Performed By: #### T 7, LIPID, CMP, TSH #### [facility] [address] [place] [address] Dr. Luci Christian Anion gap [Moles/Vol] 12.9 mmol/L Normal [facility] Comment on above: Performed By: #### T 7, LIPID, CMP, TSH #### [facility] [address] [place] [address] Dr. Luci Christian AST [Catalytic activity/Vol] 27 U/L Normal 15-37 [facility] Comment on above: Performed By: #### T 7, LIPID, CMP, TSH #### [facility] [address] [place] [address] Dr. Luci Christian Bilirubin [Mass/Vol] 0.6 mg/dL Normal 0.2-1.0 [facility] Comment on above: Performed By: #### T 7, LIPID, CMP, TSH #### [facility] [address] [place] [address] Dr. Luci Christian Calcium [Mass/Vol] 9.1 mg/dL Normal 8.5-10.1 [facility] Comment on above: Performed By: #### T 7, LIPID, CMP, TSH #### [facility] [address] [place] [address] Dr. Luci Christian Chloride [Moles/Vol] 104 mmol/L Normal 98-107 [facility] Comment on above: Performed By: #### T 7, LIPID, CMP, TSH #### [facility] [address] [place] [address] Dr. Luci Christian CO2 [Moles/Vol] 27.9 mmol/L Normal 21.0-32.0 [facility] Comment on above: Performed By: #### T 7, LIPID, CMP, TSH #### [facility] [address] [address] [address] Luci Christian Creatinine [Mass/Vol] 1.02 mg/dL Normal 0.70-1.30 [facility] Comment on above: Performed By: #### T 7, LIPID, CMP, TSH #### [facility] [address] [address] [address] Luci Christian EGFR-AF SAMMARINESE >60 Normal >=60 [facility] Comment on above: Performed By: #### T 7, LIPID, CMP, TSH #### [facility] [address] [address] [address] Luci Christian EGFR-NON AF SAMMARINESE >60 Normal >=60 [facility] Comment on above: Performed By: #### T 7, LIPID, CMP, TSH #### [facility] [address] [address] [address] Luci Christian Globulin (S) [Mass/Vol] 4.6 g/dL Normal [facility] Comment on above: Performed By: #### T 7, LIPID, CMP, TSH #### [facility] [address] [address] [address] Luci Christian Glucose [Mass/Vol] 98 mg/dL Normal 74-106 [facility] Comment on above: Performed By: #### T 7, LIPID, CMP, TSH #### [facility] [address] [address] [address] Luci Christian Potassium [Moles/Vol] 4.8 mmol/L Normal 3.5-5.1 [facility] Comment on above: Performed By: #### T 7, LIPID, CMP, TSH #### [facility] [address] [address] [address] Luci Christian Protein [Mass/Vol] 8.3 g/dL Critically high 6.4-8.2 [facility] Comment on above: Performed By: #### T 7, LIPID, CMP, TSH #### [facility] [address] [address] [address] Luci Christian Sodium [Moles/Vol] 140 mmol/L Normal 136-145 [facility] Comment on above: Performed By: #### T 7, LIPID, CMP, TSH #### [facility] [address] [address] [address] Luci Christian Urea nitrogen [Mass/Vol] 19.0 mg/dL Critically high 7.0-18.0 [facility] Comment on above: Performed By: #### T 7, LIPID, CMP, TSH #### [facility] [address] [address] [address] Luci Christian Urea nitrogen/Creatinine [Mass ratio] 18.6 mg/mg Normal [facility] Comment on above: Performed By: #### T 7, LIPID, CMP, TSH #### [facility] [address] [address] [address] Luci Christian TSHon 02-26-2023 TSH 1.563 uIU/mL Normal 0.358-3.740 [facility] Comment on above: Performed By: #### T 7, LIPID, CMP, TSH #### [facility] [address] [address] [address] Luci Christian No Panel Informationon 02-01 [facility] Vital Signs Date Time Vital Sign Value Performing Clinician Radha ojeda 08-29-2023 07:27-0500 Body height 185.4 cm Pacc 6 Work Phone: [facility] 08-29-2023 07:27-0500 Body temperature 97.9 [degF] Pacc 6 Work Phone: [facility] 08-29-2023 07:27-0500 Body weight 96.34 kg Pacc 6 Work Phone: [facility] 08-29-2023 07:27-0500 Diastolic blood pressure 85 mm[Hg] Pacc 6 Work Phone: [facility] 08-29-2023 07:27-0500 Heart rate 64 /min Pacc 6 Work Phone: [facility] 08-29-2023 07:27-0500 Respiratory rate 18 /min Pacc 6 Work Phone: [facility] 08-29-2023 07:27-0500 SaO2% (BldA) [Mass fraction] 100 % Pacc 6 Work Phone: [facility] 08-29-2023 07:27-0500 Systolic blood pressure 139 mm[Hg] Pacc 6 Work Phone: [facility] 04-29-2023 13:02-0400 Body height 185.4 cm Pacc 8 Work Phone: [facility] 04-29-2023 13:02-0400 Body temperature 97.81 [degF] Pacc 8 Work Phone: [facility] 04-29-2023 13:02-0400 Body weight 97.98 kg Pacc 8 Work Phone: [facility] 04-29-2023 13:02-0400 Diastolic blood pressure 75 mm[Hg] Pacc 8 Work Phone: [facility] 04-29-2023 13:02-0400 Heart rate 61 /min Pacc 8 Work Phone: [facility] 04-29-2023 13:02-0400 SaO2% (BldA) [Mass fraction] 99 % Pacc 8 Work Phone: [facility] 04-29-2023 13:02-0400 Systolic blood pressure 126 mm[Hg] Pacc 8 Work Phone: [facility] 02-01-2023 14:03-0400 Body height 185.4 cm Luma Garcia PA-C Work Phone: [facility] 02-01-2023 14:03-0400 Body weight 96.16 kg Luma Garcia PA-C Work Phone: [facility] Encounters Encounter Date Encounter Type Care Provider Facility Start: 04-02-2024 End: 04-02-2024 Patient encounter procedure Shaji Bishop MD Work Phone: Orthopaedics Comment on above: S/P total knee arthr oplasty, right (Primary Dx); Status post left knee replacement Start: 04-02-2024 End: 04-02-2024 ambulatory SHAJI E EDNA Facility:[facility] Start: 04-02-2024 End: 04-02-2024 Subsequent hospital visit by physician [facility] Rej Work Phone: Radiology Comment on above: S/P total knee arthr oplasty, right [Z96.651] Start: 10-03-2023 End: 10-03-2023 Patient encounter procedure Luma Garcia PA-C Work Phone: Orthopaedics Comment on above: S/P total knee arthr oplasty, right (Primary Dx) Start: 10-03-2023 End: 10-03-2023 ambulatory LUMA GARCIA Facility:[facility] Start: 09-16-2023 Refill Luma Garcia PA-C Work Phone: Orthopaedics Comment on above: Refill Request Start: 09-09-2023 Telephone encounter Nicole Meeks RN Orthopaedics Comment on above: Post Op Refill Request Start: 09-05-2023 End: 09-05-2023 ambulatory MERLINEIVANA FULLER Facility:[facility] Start: 09-04-2023 End: 09-05-2023 ambulatory SHAJI E EDNA Facility:[facility] Start: 08-29-2023 End: 08-29-2023 ambulatory SHAJI E EDNA Facility:[facility] Start: 08-29-2023 End: 08-29-2023 Subsequent hospital visit by physician Ct 2 Main Qb (I-Stat) Radiology Comment on above: Primary osteoarthrit is of right knee [M17.11] Start: 08-29-2023 Encounter for other preprocedural examination MERLINE HOY [facility] Start: 08-29-2023 End: 08-29-2023 ambulatory MERLINE FULLER Facility:[facility] Start: 08-29-2023 End: 08-29-2023 Admission to establishment Pac Main 6 Work Phone: [facility] Start: 08-29-2023 End: 08-29-2023 Preprocedural examination done Pac Main 6 Work Phone: [facility] Work Phone: Start: 08-29-2023 End: 08-29-[address] [facility] Main Work Phone: Pre Anesthesia Comment on above: Pre-operative examin ation (Primary Dx); Primary osteoarthritis of right knee; Chronic pain of right knee; Primary hypertension; Hyperlipidemia, unspecified hyperlipidemia type; Tricuspid valve insufficiency, unspecified etiology; Pulmonary hypertension (HCC); Dilation of aorta (HCC); Gastroesophageal reflux disease, unspecified whether esophagitis present; History of prostate cancer Start: 08-21-2023 Telephone encounter Tresa PHILLIP Orthopaedics Comment on above: [employer] - O ther Start: 06-10-2023 ambulatory Shaji Bishop MD Work Phone: Orthopaedics Start: 06-07-2023 End: 06-07-2023 Patient encounter procedure Luma Garcia PA-C Work Phone: Orthopaedics Comment on above: S/P total knee arthr oplasty, left (Primary Dx); Acute post-operative pain Start: 06-07-2023 End: 06-07-2023 ambulatory LUMA GARCIA Facility:[facility] Start: 06-07-2023 End: 06-07-2023 Subsequent hospital visit by physician Orth General Xray A21 Radiology Comment on above: Arthritis of left kn ee [M17.12] Start: 05-09-2023 Telephone encounter Nicole Meeks RN Orthopaedics Comment on above: Post Op Start: 05-07-2023 End: 05-07-2023 Evaluation and management of inpatient MERLINE FULLER Facility:[facility] Start: 05-07-2023 End: 05-07-2023 Evaluation and management of inpatient SHAJI BISHOP Facility:[facility] Start: 05-06-2023 Telephone encounter Nicole Meeks RN Orthopaedics Comment on above: Patient Update (Surg lauren Arrival Time) Start: 05-03-2023 Orders Only Luma Garcia PA-C Work Phone: Orthopaedics Comment on above: Arthritis of left kn ee (Primary Dx) Start: 05-01-2023 ambulatory Dimple Dan RN [facility] Comment on above: Blood Management Start: 04-30-2023 End: 04-30-2023 Orders Only Luma Garcia PA-C Work Phone: Orthopaedics Comment on above: Arthritis of left kn ee (Primary Dx) Start: 04-29-2023 End: 04-29-2023 Subsequent hospital visit by physician Ct 2 Main Qb (I-Stat) Radiology Comment on above: Primary osteoarthrit is of left knee [M17.12] Start: 04-29-2023 End: 04-29-2023 Admission to [facility] Main Work Phone: [facility] Start: 04-29-2023 End: 04-29-2023 Preprocedural examination done [place] [id number] Work Phone: [facility] Work Phone: Start: 04-29-2023 Encounter for other preprocedural examination MERLINE FULLER [facility] Start: 04-29-2023 End: 04-29-[address] [place] [id number] Work Phone: Pre Anesthesia Comment on above: Pre-op evaluation (P rimary Dx) Start: 02-26-2023 End: 02-27-[address] MERLINE FULLER . Facility: Start: 02-21-2023 End: 02-21-2023 ambulatory OSMAR NORIEGA Facility: Start: 02-04-2023 ambulatory Dimple Dan RN Interna l Medicine [facility] Start: 02-01-2023 End: 02-01-2023 Patient encounter [...] Comment: Speci men Type: BLOOD SPECIMENOrdering Facility: [facility] Address: [address] [place] [address] Performed By: #### T SCR30 ####[facility] BLOOD BANKCLIA [id number] [address] Start: 06-07-2023 Radiologic examinati on knee 3 views Shaji Bishop MD Work Phone: Start: 05-07-2023 Antibody screen MERLINE FULLER Comment on above: Order Comment: Speci men Type: BLOOD SPECIMENOrdering Facility: [facility] Address: [address] [place], [place] [id number] Performed By: #### T SCR ####[facility] BLOOD BANKCLIA [id number] [address] [place] Start: 04-29-2023 Ct lower extremity w /o contrast material Luma Garcia PA-C Work Phone: Start: 02-26-2023 PSA screening OSMAR NORIEGA Comment on above: Performed By: #### P [facility] #### [facility] [address] [place] [address] Dr. Luci Christian Start: 02-01-2023 Radiologic exam knee complete 4/more views Luma Garcia PA-C Work Phone: Plan of Treatment Date Care Activity Detail Author Start: 09-05-2026 Diabetes Screening Diabetes Screenmilton g [facility] Start: 08-29-2026 Diabetes Screening Diabetes Screenin g [facility] Start: 04-29-2026 [facility] Start: 04-29-2026 Diabetes Screening Diabetes Screenin g [facility] Start: 06-21-2024 Influenza vaccination Influenz a Vaccine (Season Ended) [facility] Start: 04-29-2024 BP CONTROLLED (<130/80) BP CONTROLLE D (<130/80) [facility] Start: 10-21-2023 Advance Directive Discussion Advance Directive Discussion [facility] Start: 10-21-2023 Behavioral Health Screening Behavioral Health Screening [facility] Start: 08-28-2023 End: 11-27-2023 TYPE AND SCREEN,30 DAY TYPE AND SCREEN,30 DAY Blood Bank Routine Pre-operative examination Expected: 08/28/2023, Expires: 11/27/2023 [facility] Work Phone: Comment on above: Expected: 08/28/2023 , Expires: 11/27/2023 Start: 06-21-2023 Covid-19 Vaccine () Covid-19 Vaccine () [facility] Start: 06-21-2023 Influenza vaccination C [facility] Start: 06-12-2023 Arthrp kne condyle&p latu medial&lat compartments TOTAL KNEE REPLACEMENT Procedures Routine Primary osteoarthritis of right knee Expected: 06/12/2023 [facility] Work Phone: Comment on above: Expected: 06/12/2023 Start: 06-12-2023 End: 08-12-2023 Basic metabolic 2000 panel - Serum or Plasma BASIC METABOLIC PNL Lab Routine Primary osteoarthritis of right knee Expected: 06/12/2023, Expires: 08/12/2023 [facility] Work Phone: Comment on above: Expected: 06/12/2023 , Expires: 08/12/2023 Start: 06-12-2023 End: 08-12-2023 CBC panel - Blood by Automated count CBC Lab Routine Primary osteoarthritis of right knee Expected: 06/12/2023, Expires: 08/12/2023 [facility] Work Phone: Comment on above: Expected: 06/12/2023 , Expires: 08/12/2023 Start: 06-12-2023 End: 08-12-2023 CONFIRM BLOOD TYPE CONFIRM BLOOD TYPE Blood Bank Routine Primary osteoarthritis of right knee Expected: 06/12/2023, Expires: 08/12/2023 [facility] Work Phone: Comment on above: Expected: 06/12/2023 , Expires: 08/12/2023 Start: 06-12-2023 End: 07-09-2024 CT KNEE WO IVCON RIGHT CT KNEE WO IVCON RIGHT Radiology Routine Primary osteoarthritis of right knee Expected: 06/12/2023, Expires: 07/09/2024 [facility] Work Phone: Comment on above: Expected: 06/12/2023 , Expires: 07/09/2024 Start: 06-12-2023 End: 06-10-2024 ECG COMPLETE ECG COMPLETE ECG Routine Primary osteoarthritis of right knee Expected: 06/12/2023, Expires: 06/10/2024 [facility] Work Phone: Comment on above: Expected: 06/12/2023 , Expires: 06/10/2024 Start: 06-12-2023 REFER FOR ADMIT INTERVIEW REFE R FOR ADMIT INTERVIEW Procedures Routine Primary osteoarthritis of right knee Expected: 06/12/2023 [facility] Work Phone: Comment on above: Expected: 06/12/2023 Start: 06-12-2023 End: 08-12-2023 STAPH AUREUS PCR STAPH AUREUS PCR Lab Routine Primary osteoarthritis of right knee Expected: 06/12/2023, Expires: 08/12/2023 [facility] Work Phone: Comment on above: Expected: 06/12/2023 , Expires: 08/12/2023 Start: 06-12-2023 End: 08-12-2023 TYPE AND SCREEN,30 DAY TYPE AND SCREEN,30 DAY Blood Bank Routine Primary osteoarthritis of right knee Expected: 06/12/2023, Expires: 08/12/2023 [facility] Work Phone: Comment on above: Expected: 06/12/2023 , Expires: 08/12/2023 Start: 06-12-2023 End: 07-09-2024 XR KNEE GENERAL 4V AP BOTH/PA BOTH/LAT/MERC RIGHT XR KNEE GENERAL 4V AP BOTH/PA BOTH/LAT/MERC RIGHT Radiology Routine Primary osteoarthritis of right knee Expected: 06/12/2023, Expires: 07/09/2024 [facility] Work Phone: Comment on above: Expected: 06/12/2023 , Expires: 07/09/2024 Start: 06-12-2023 End: 07-09-2024 XR KNEE POST OP 3V AP/LAT/MERCHANT RIGHT XR KNEE POST OP 3V AP/LAT/MERCHANT RIGHT Radiology Routine Primary osteoarthritis of right knee Expected: 06/12/2023, Expires: 07/09/2024 [facility] Work Phone: Comment on above: Expected: 06/12/2023 , Expires: 07/09/2024 Start: 04-30-2023 End: 06-30-2023 Comprehensive metabolic 2000 panel - Serum or Plasma COMP METABOLIC PANEL Lab Routine Arthritis of left knee Expected: 04/30/2023, Expires: 06/30/2023 [facility] Work Phone: Comment on above: Expected: 04/30/2023 , Expires: 06/30/2023 Start: 02-01-2023 End: 04-03-2023 Albumin [Mass/volume] in Serum or Plasma ALBUMIN BLD Lab Routine Primary osteoarthritis of left knee Primary osteoarthritis of right knee Anemia, unspecified type Expected: 02/01/2023, Expires: 04/03/2023 [facility] Work Phone: Comment on above: Expected: 02/01/2023 , Expires: 04/03/2023 Start: 02-01-2023 End: 04-03-2023 CBC W Auto Differential panel - Blood CBC + DIFF Lab Routine Primary osteoarthritis of left knee Primary osteoarthritis of right knee Anemia, unspecified type Expected: 02/01/2023, Expires: 04/03/2023 [facility] Work Phone: Comment on above: Expected: 02/01/2023 , Expires: 04/03/2023 Start: 02-01-2023 End: 04-03-2023 Cobalamin (Vitamin B12) [Mass/volume] in Serum or Plasma VITAMIN B12 BLOOD Lab Routine Primary osteoarthritis of left knee Primary osteoarthritis of right knee Anemia, unspecified type Expected: 02/01/2023, Expires: 04/03/2023 [facility] Work Phone: Comment on above: Expected: 02/01/2023 , Expires: 04/03/2023 Start: 02-01-2023 End: 04-03-2023 Ferritin [Mass/volume] in Serum or Plasma FERRITIN BLD Lab Routine Primary osteoarthritis of left knee Primary osteoarthritis of right knee Anemia, unspecified type Expected: 02/01/2023, Expires: 04/03/2023 [facility] Work Phone: Comment on above: Expected: 02/01/2023 , Expires: 04/03/2023 Start: 02-01-2023 End: 04-03-2023 Folate [Mass/volume] in Serum or Plasma FOLATE SERUM Lab Routine Primary osteoarthritis of left knee Primary osteoarthritis of right knee Anemia, unspecified type Expected: 02/01/2023, Expires: 04/03/2023 [facility] Work Phone: Comment on above: Expected: 02/01/2023 , Expires: 04/03/2023 Start: 02-01-2023 End: 04-03-2023 Iron and Iron binding capacity panel - Serum or Plasma IRON + TIBC Lab Routine Primary osteoarthritis of left knee Primary osteoarthritis of right knee Anemia, unspecified type Expected: 02/01/2023, Expires: 04/03/2023 [facility] Work Phone: Comment on above: Expected: 02/01/2023 , Expires: 04/03/2023 Start: 02-01-2023 End: 04-03-2023 RETIC COUNT RETIC COUNT Lab Routine Primary osteoarthritis of left knee Primary osteoarthritis of right knee Anemia, unspecified type Expected: 02/01/2023, Expires: 04/03/2023 [facility] Work Phone: Comment on above: Expected: 02/01/2023 , Expires: 04/03/2023 Start: 10-21-2022 ADVANCE DIRECTIVE DISCUSSION ADVANCE DIRECTIVE DISCUSSION [facility] Start: 10-21-2022 DEPRESSION ASSESSMENT DEPRESSION ASS ESSMENT [facility] Start: 01-23-2016 Pneumococcal Vaccine : 65+ (1 - PCV) Pneumococcal Vaccine: 65+ (1 - PCV) [facility] Start: 01-23-2016 Pneumococcal Vaccine : 65+ (1 of 1 - PCV) Pneumococcal Vaccine: 65+ (1 of 1 - PCV) [facility] Start: 01-23-2016 PNEUMOCOCCAL: 65+ (1 - PCV) PNEUMOCOCCAL: 65+ (1 - PCV) [facility] Start: 11-22-2014 DIABETES SCREEN DIABETES SCREEN [facility] Start: 2011 RSV Vaccine (1 - 1-d ose 60+ series) RSV Vaccine (1 - 1-dose 60+ series) [facility] Start: 2001 SHINGRIX VACCINE (1 of 2) ZAVALA GRIX VACCINE (1 of 2) [facility] Start: 01-23-1996 COLOGUARD (FIT-DNA) COLOGUARD (FIT-D NA) [facility] Start: 01-23-1996 Colonoscopy COLONOSCOPY [facility] Start: 01-23-1996 COLORECTAL CANCER SCREENING COLORECTAL CANCER SCREENING [facility] Start: 01-23-[address] COLONOGRAPHY [facility] Start: 01-23-1996 FECAL OCCULT BLOOD FECAL OCCULT BLOO D [facility] Start: 01-23-1996 Screening for malign ant neoplasm of colon [facility] Start: 01-23-1996 SIGMOIDOSCOPY SIGMOIDOSCOPY [facility] Start: 1986 Lipid 1996 panel - S gunner or Plasma Lipid Screening [facility] Start: 1986 Lipid panel Lipid Screening [facility] Start: 1986 LIPID SCREEN LIPID SCREEN [facility] Start: 1970 Urine microalbumin profile [facility] Start: 1969 ANNUAL PCP TEAM MEDICAL CLAIMS PROCESSOR SANDEEP DISEASE VISIT ANNUAL PCP TEAM CHRONIC DISEASE VISIT [facility] Start: 1969 BP CONTROLLED (<130/80) BP CONTROLLE D (<130/80) [facility] Start: 1969 HEPATITIS C SCREENING HEPATITIS C [facility] Start: 1969 Hepatitis C screening Hepatitis C [facility] Start: 1951 COVID-19 VACCINE (#1) COVID-19 VACCI NE (#1) [facility] Start: 1950 Abdominal Aortic Ane urysm Screening Abdominal Aortic Aneurysm Screening [facility] Start: 1950 Abdominal aortic ane urysm screening Abdominal Aortic Aneurysm Screening [facility] End: 03-02-2024 CT KNEE WO IVCON LEFT CT KNEE WO IVCON LEFT Radiology Routine Primary osteoarthritis of left knee Primary osteoarthritis of right knee Anemia, unspecified type 1 Occurrences starting 02/01/2023 until 03/02/2024 [facility] Work Phone: Comment on above: 1 Occurrences starti ng 02/01/2023 until 03/02/2024 End: 04-29-2024 Echocardiography ECHO Cardiology Routine Pre-op evaluation 1 Occurrences starting 04/29/2023 until 04/29/2024 [facility] Work Phone: Comment on above: 1 Occurrences starti ng 04/29/2023 until 04/29/2024 STAPH AUREUS PCR STAPH AUREUS PC R Lab Routine Pre-operative examination Ordered: 08/28/2023 [facility] Work Phone: Comment on above: Ordered: 08/28/2023 TYPE AND SCREEN,30 DAY TYPE AND SCREEN,30 DAY Blood Bank Routine Pre-operative examination 08/29/2023 8:46 AM EST [facility] Work Phone: End: 11-01-2024 XR KNEE POST OP 3V AP/LAT/MERCHANT BILATERAL XR KNEE POST OP 3V AP/LAT/MERCHANT BILATERAL Radiology Routine S/P total knee arthroplasty, right 1 Occurrences starting 10/03/2023 until 11/01/2024 [facility] Work Phone: Comment on above: 1 Occurrences starti ng 10/03/2023 until 11/01/2024 [facility] Payers Date Payer Category Payer Unknown [employer] [employer] SUPPLEMENT [id number] 2021-Present [phone] [id number], [place] [id number] Indemnity [id number] 2016 Medicare [id number] 1959 Medicare [id number] 1959 Unknown [id number] 1951 Unknown [id number] 1951 Unknown [id number] Social History Date Type Detail Facility Start: 08-20-2011 End: 04-29-2023 Tobacco smoking status COIS Never smoked tobacco [facility] Start: 08-20-2011 End: 08-29-2023 Tobacco use and exposure Smokeless tobacco non-user [facility] Start: 02-01-2023 End: 08-29-2023 Alcohol intake Current drinker of alcohol (finding) [facility] Start: 02-01-2023 End: 04-29-2023 Alcohol intake [facility] Start: 11-09-2011 Alcohol Comment 1 drink of vod ka daily [facility] Start: 1950 Sex Assigned At Not on file C [facility] Start: 04-29-2023 End: 08-21-2023 Tobacco use panel [facility] National Score (1-10 0), lower number is lower risk 73 [facility] Start: 04-29-2023 Alcohol Comment 1 drink of vod ka daily per pt 04/29/2023 [facility] Has the [employer], PT [employer], or [employer] threatened to shut off services in your home in past 12Mo No [facility] Do you belong to any clubs or organizations such as scientology groups, unions, fraternal or athletic groups, or school groups? Yes [facility] Are you now , , , , never or living with a partner? [facility] How often to you hav e a drink containing alcohol? 4 or more times a week [facility] How many standard dr inks containing alcohol do you have on a typical day? 1 or 2 [facility] How often do you hav e 6 or more drinks on 1 occasion? Never [facility] How hard is it for y ou to pay for the very basics like food, housing, medical care, and heating Not very hard [facility] Do you feel stress - tense, restless, nervous, or anxious, or unable to sleep at night because your mind is troubled all the time - these days [OSQ] Only a little [facility] (I/We) worried magaly er (my/our) food would run out before (I/we) got money to buy more. Never true [facility] Start: 08-29-2023 Tobacco smoking stat us NHIS Ex-smoker [facility] End: 10-21-1982 History of tobacco use Current smoker [facility] End: 10-21-1982 History of tobacco use Cigarette Smoker [facility] Start: 08-29-2023 Alcohol Comment 1 drink of vod ka daily per pt 08/29/2023 [facility] NEGATED: Highlighted rowStart: NINF History of tobacco use Passive smoker [facility] Medical Equipment Procedure Code Equipment Code Equipment Origin al Text Equipment Identifier Dates Baseplate Triath shivani 6 Tritanium [id number] Tibial 4 Cruciform Peg Keel Knee - [id number] Start: 05-07-2023 Component Triath shivani 5 Pa Femoral Cruciate Retain Bead Knee Right - [id number] Start: 09-04-2023 Component Tritan ium 38mm Metal 11mm Patellar Asymmetric Knee - [id number] Start: 05-07-2023 Insert Triathlon 6 9mm Tibial Bearing Condylar Stabilize Sterile Knee - [id number] Start: 05-07-2023 Component Triath shivani 5 Pa Femoral Cruciate Retain Bead Knee Left - [id number] Start: 05-07-2023 Component Tritan ium 35mm Metal 10mm Patellar Asymmetric Knee - [id number] Start: 09-04-2023 Insert Triathlon 6 9mm Tibial Bearing Condylar Stabilize Sterile Knee - [id number] Start: 11-15-2023 Baseplate Triath shivani 6 Tritanium [id number] Tibial 4 Cruciform Peg Keel Knee - [id number] Start: 09-04-2023 Goals Date Patient Goal Desired Activity /State Personal health goal Clinical Notes 02-01-2023 to 04-02-2024 Shaji Bishop MD - 04/02/2024 10:09 AM Wili Stokes, RT(R) - 04/02/2024 9:15 AM Luma Jackson PA-C - 10/03/2023 8:11 AM Osmar Arellano, RT(R) - 08/29/2023 11:00 AM EST Note Date & Type Note Facility 04-02-2024 Note HNO ID: [id number] Author: SHAJI BISHOP MD Service: ? Author [...] as documented by the Orthopaedic surgery resident/fellow/physician wellness assistant was reviewed and discussed in detail. We have discussed the case and management of the patient's care, and I agree with the above documented information and plan. Provider: Shaji Bishop MD Completed by: Shaji Bishop MD. [facility] 04-02-2024 History of Present illness Narrative [...] as documented by the Orthopaedic surgery resident/fellow/physician wellness assistant was reviewed and discussed in detail. We have discussed the case and management of the patient's care, and I agree with the above documented information and plan. Provider: Shaji Bishop MD Completed by: Shaji Bishop MD. documented in this encounter [facility] 04-02-2024 History of Present illness Narrative [...] PATIENT PRESENTS WITH AN IMPLANTABLE OR ATTACHED MACHINE ASSISTANT: No RADIOLOGY DEPARTMENT: General X-ray: Exam(s) Completed: Lower Extremity X-Ray(s): Knee, AP / Lat / Merchant Bilateral and Wt. Bearing PERIPHERAL IV DATA: Not applicable SIGNED BY:NIECY BEARDEN(RT) AND RT Leslee(R) April 02, 2024 9:42 AM documented in this encounter [facility] 04-02-2024 Note HNO ID: [id number] Author: WILI RICE RT(R) Service: Radiology Author [...] PATIENT PRESENTS WITH AN IMPLANTABLE OR ATTACHED MACHINE ASSISTANT: No RADIOLOGY DEPARTMENT: General X-ray: Exam(s) Completed: Lower Extremity X-Ray(s): Knee, AP / Lat / Merchant Bilateral and Wt. Bearing PERIPHERAL IV DATA: Not applicable SIGNED BY:NIECY BEARDEN(RT) AND RT Leslee(R) April 02, 2024 9:42 AM [facility] 10-03-2023 Note HNO ID: [id number] Author: Luma Garcia PA-C Service: ? Author Type: Physician Music Engineer Type: Progress Notes Filed: 10/03/2023 11:08 AM [...] Last 180 days 09/04/23 Shaji Bishop MD, [id number] Status post total knee replacement, right ..., Admission (Discharged) 05/07/23 Shaji Bishop MD, [id number] Primary osteoarthritis of left knee, Admission (Discharged) [...] Garcia PA-C Completed by: Luma Garcia PA-C [facility] 10-03-2023 History of Present illness Narrative [...] Last 180 days 09/04/23 Shaji Bishop MD, [id number] Status post total knee replacement, right ..., Admission (Discharged) 05/07/23 Shaji Bishop MD, [id number] Primary osteoarthritis of left knee, Admission (Discharged) [...] Luma Garcia PA-C documented in this encounter [facility] 10-03-2023 Note HNO ID: [id number] Author: Megan Bearden RT(R) Service: Radiology Author [...] RT Jyotsna(R) October 03, 2023 8:02 AM [facility] 09-16-2023 Miscellaneous Notes Re: s/p RTKA on 09/04. Requesting refill of OxyIr. Last fill on 09/10. States he is out; took last 2 last night. [facility] documented in this encounter [facility] 09-09-2023 Miscellaneous Notes The following medication(s) were electronically ordered by Luma Garcia PA-C on 09/09/2023. The prescription(s) were sent to [facility]. Requested Prescriptions Pending Prescriptions Disp Refills [...] average per day. documented in this encounter [facility] 09-09-2023 Miscellaneous Notes Patient has been [...] need a refill tomorrow, will pend to [facility]. Reminded how to take two for severe [...] Nicole Meeks RN documented in this encounter [facility] 09-05-2023 Note HNO ID: [id number] Author: Kelle Palma PA-C Service: Orthopaedic Surgery Author Type: Physician Music Engineer Type: Plan of Care Filed: 09/05/2023 8:35 AM Note Text: Orthopaedic plan of care Plan of care discussed with: Provider, RN, Patient. Patient sitting up in bed. His pain is tolerable. Patient is eager to discharge home this morning. He will work with PT this morning. CM checking on [facility] Discharge instructions and med rec completed. [...] osteoarthritis of right knee Kelle Palma PA-C [facility] 09-05-2023 Note HNO ID: [id number] Author: Erin Paez DO Service: Orthopaedic Surgery [...] Department of Orthopedic Surgery 09/05/2023 6:27 AM [facility] 09-04-2023 Note HNO ID: [id number] Author: Dominique Castaneda APRN.CRNA Service: ? Author Type: Nurse Oil Exploration Engineer Type: Anesthesia Procedure Notes Filed: 09/04/2023 11:31 [...] September 04, 2023 TIME: 11:31 AM CSN: [id number] [facility] 09-04-2023 Note HNO ID: [id number] Author: Jamel Guevara MD Service: ? Author [...] September 04, 2023 TIME: 7:54 AM CSN: [id number] [facility] 08-29-2023 History of Present illness Narrative [...] 2023 9:48 AM documented in this encounter [facility] 08-29-2023 Note HNO ID: [id number] Author: Osmar Kuo RT(Alba) Service: Radiology Author [...] Kuo, RT(R) August 29, 2023 9:48 AM [facility] 08-29-2023 Instructions Dwain Mcintosh APRN.MARGIN TRIMMER - 08/29/2023 7:56 AM EST PATIENT PREOPERATIVE INSTRUCTIONS Dr. Shaji Bishop has scheduled you for your procedure at this surgery center: [facility] Scheduling Office: [phone] --[address] [place] [address]. Please read below carefully for your personalized [...] call the Saturday before. Your surgeon s almond pan finisher will tell you what time to call the office. - If you have not reached the departmental almond pan finisher by 5 P.M., call [phone] after 5 P.M. the day before your surgery. Please be aware that emergency situations arise, which may delay or change your surgical time. If this happens, we will notify you as soon as possible and regret any inconvenience. If you already have an Advance Directive, please fax a copy to [phone] or email to for it to be [...] Dwain Mcintosh APRN.KEYONNA documented in this encounter [facility] 08-29-2023 History and physical note HISTORY AND PHYSICAL EXAMINATION SERVICE DATE: 08/29/2023 SERVICE TIME: 7:41 AM PRIMARY CARE PHYSICIAN: Merline Fuller MD REASON FOR VISIT: Ronnie Abebe is a 73 year old male who is scheduled for RIGHT ROBOTIC ASSISTED TOTAL KNEE ARTHROPLASTY on 09/04/[facility] at the request of Dr. Shaji Bishop [...] Prior to Admission medications as of 08/29/23 2812 Medication Sig Last Dose Taking amLODIPine (NORVASC) [...] Pulmonary HTN, Dilated aorta. Negative for DVT/PE, [place], Cardiac surgery or stents. Denies current chest [...] TIME: 8:23 AM documented in this encounter [facility] 08-21-2023 Miscellaneous Notes ORTHOPAEDIC COORDINATION OF CARE Pre-Op Assessment Discharge Disposition (Planned): Home with Home Health Discharge Transportation: Car PRIMARY CARE PHYSICIAN: Merline Fuller MD OR Surgery Date: 09/04/2023 [facility] Appointment: 09/04/2023 Joint: Jointtype: Knee Side: right Health Insurance: Medicare or MEDICARE RAILROAD PB ONLY Primary Contact: Extended Emergency Contact Information Primary Emergency Contact: MisMichelleIsaebl Mobile Relation: Spouse Have you had joint [...] min Stress: No Stress Concern Present (08/21/2023) [employer] [place] [employer] - Occupational Stress Questionnaire Feeling of Stress : Only a little Social Connections: Socially Integrated (08/21/2023) Social Connection and Isolation Panel [NHANES] Frequency of Communication with Friends and Family: More than three times a week Frequency of Social Gatherings with Friends and Family: Once a week Attends Jewish Services: 1 to 4 times per year [...] Year: No Utilities: Not At Risk (08/21/2023) [facility] Utilities Threatened with loss of utilities: No Area Deprivation Index: Medium Risk (04/29/2023) Area Deprivation Index National Score (1-100), lower number is lower risk: 73 State Score (1-10), lower number is lower risk: 6 Data from: https://www.neighborhoodatlas.[facility]/. Last address used for calculation: [address] [place] [address] [address] Equipment: Do you currently use [...] patient/family: Yes - Within 25 miles of [address] [place] [address] Total Joint Arthroplasty (TJA) Surgical Risk Procedure: Primary total Knee replacement Date assessed: risk assessed on 04/29/2023 TJA Risk 04/29/2023 Procedure Primary total Knee replacement Estimated Length of Stay (# of days) 1 Chance of NOT Returning Home at Discharge 3.85 % 30 Day Chance of Readmission 3.06 % Patient lives outside of [facility] service area. Patient stated [facility] is agency of choice for [facility] services. Plan for spouse to provide D/C transport home following surgery. Patient is aware of the possibility of same day D/C at this time and is in agreement SIGNATURE: JOVANNI Spence DATE: August 21, 2023 TIME: 11:34 AM documented in this encounter [facility] 06-07-2023 Note HNO ID: [id number] Author: Luma Garcia PA-C Service: ? Author Type: Physician Music Engineer Type: Progress Notes Filed: 06/07/2023 12:30 PM [...] Last 180 days 05/07/23 Shaji Bishop MD, [id number] Primary osteoarthritis of left knee, Admission (Discharged) [...] Garcia PA-C Completed by: Luma Garcia PA-C [facility] 06-07-2023 History of Present illness Narrative [...] Last 180 days 05/07/23 Shaji Bishop MD, [id number] Primary osteoarthritis of left knee, Admission (Discharged) [...] Luma Garcia PA-C documented in this encounter [facility] 06-07-2023 History of Present illness Narrative [...] 2023 9:31 AM documented in this encounter [facility] 06-07-2023 Note HNO ID: [id number] Author: Megan Nova RT(R) Service: ? Author [...] RT Damien(Alba) June 07, 2023 9:31 AM [facility] 05-09-2023 Miscellaneous Notes Patient has been [...] Nicole Meeks RN documented in this encounter [facility] 05-07-2023 Note HNO ID: [id number] Author: Sharon Mensah RN Service: Care Management [...] the process utilized to ensure compliance with [facility] policy regarding Inpatient Admission and Observation Services. [...] physician's order as documented evidence of concurrence. [facility] 05-07-2023 Note HNO ID: [id number] Author: Ronnie Rosa RN Service: Care Management [...] the inter-professional team: Yes [facility] of Careg[facility] Transportation Arrangements Transportation Arrangements: Car Destination: Home Handoff Communication: Handoff to: Primary Care Physician Primary Care Physician Name/Phone: Merline Fuller MD [phone] Additional Information: Discharge Information Row Name Admission (Current) from 05/07/2023 in HOSP MAIN M081 Home Health Care Agency [facility] Phone# Patient d/c ready to home today with [facility] services provided by [facility] with confirmed SOC date within 24-48 hours of D/C.. Patient to be transported home by family via private auto. Patient aware of plan and has been provided with [facility] contact information via AVS. Bedside RN aware of plan. DC instructions sent to [facility] via [employer]. SIGNATURE: Ronnie Rosa RN PATIENT NAME: Ronnie Abebe DATE: May 07, 2023 TIME: 4:31 PM CONTACT #: [phone] [facility] 05-07-2023 Note HNO ID: [id number] Author: Ronnie Rosa RN Service: Care Management [...] Inpatient Insurance Provider: MEDICARE A AND B Halma of Choice Explained: Halma of Choice Given: Yes Level of Care Discussed: Home Care Are you interested in bedside delivery of your medications? No Caregiver Assessment: Caregiver is ready, willing and able to meet the patient's needs as recommended by the inter-professional team: Yes Name of Caregiver: [facility] Transport at Discharge: Transportation Arrangements: Car Destination: Home Needs Prior to Discharge: Needs Prior to Discharge: None;Ready for Discharge Post-Acute Discharge Plan: Plan for D/C home today with home PT. [facility] accepting. Patient and RN aware. SIGNATURE: Ronnie Rosa RN PATIENT NAME: Ronnie Abebe DATE: May 07, 2023 TIME: 4:29 PM CONTACT #: [phone] [facility] 05-07-2023 Note HNO ID: [id number] Author: Arleen Jacobs APRN.FISHING VESSEL OPERATOR Service: ? Author Type: Nurse Oil Exploration Engineer Type: Anesthesia Procedure Notes Filed: 05/07/2023 9:45 AM Note Text: ANESTHESIOLOGY PROCEDURE NOTE Spinal Block General Information Procedure Start Time/Medication Administration: 05/07/2023 8:39 AM Patient location during procedure: OR Timeout Performed Pre-procedure: timeout performed Patient identity confirmed: arm band and patient Reason for Block: primary surgical anesthetic Staffing FISHING VESSEL OPERATOR: Arleen Jacobs APRN.FISHING VESSEL OPERATOR Performed by: FISHING VESSEL OPERATOR Preparation Sterility Preparation: hand hygiene performed prior [...] May 07, 2023 TIME: 9:45 AM CSN: [id number] [facility] 05-07-2023 Note HNO ID: [id number] Author: Michelet Hsu MD Service: ? Author Type: Resident Type: Anesthesia Procedure Notes Filed: 05/07/2023 7:07 AM Note Text: Attestation signed by Elizabeth King MD at 05/07/2023 2:44 PM I was present throughout the entire procedure Patient tolerated procedure without any complications. Elizabeth King MD [facility] Staff Pager: [phone] ANESTHESIOLOGY PROCEDURE NOTE Peripheral Nerve Block General [...] May 07, 2023 TIME: 7:05 AM CSN: [id number] [facility] 05-06-2023 Miscellaneous Notes Spoke with patient [...] states an understanding. documented in this encounter [facility] 05-01-2023 Note HNO ID: [id number] Author: Dimple Dan RN Service: ? Author Type: Registered Nurse Type: Progress Notes Filed: 05/01/2023 1:32 PM Note Text: Patient referred to Blood Management for pre-surgical optimization. Hgb 14.1 which exceeds Blood Management guidelines for intervention. [facility] 05-01-2023 History of Present illness Narrative Patient referred to Blood Management for pre-surgical optimization. Hgb 14.1 which exceeds Blood Management guidelines for intervention. documented in this encounter [facility] 04-29-2023 Note HNO ID: [id number] Author: Valeria Farmer MD Service: ? Author [...] Farmer MD Date: 04/29/2023 Time: 2:39 PM [facility] 04-29-2023 History of Present illness Narrative Attending Note I evaluated the patient and personally participated in the murguia components. I agree with the resident's findings and plan as documented and have discussed the case and management of the patient's care with the resident. Signature: Valeria Farmer MD Date: 04/29/2023 Time: 2:39 PM documented in this encounter [facility] 04-29-2023 History of Present illness Narrative [...] 2023 2:07 PM documented in this encounter [facility] 04-29-2023 Note HNO ID: [id number] Author: RT Jalloh (R) Service: Radiology Author [...] RT Yeimi(Alba) April 29, 2023 2:07 PM [facility] 04-29-2023 Instructions Ashleigh Serra MD - 04/29/2023 1:17 PM EDT PATIENT PREOPERATIVE INSTRUCTIONS Luma Garcia PA-C has scheduled you for your procedure at this surgery center: [facility] Scheduling Office: [phone] --[address] [place] [address]. Please read below carefully for your personalized [...] Procedures: - YOU MUST HAVE A RESPONSIBLE POWERTRAIN CONTROL SYSTEMS ENGINEER TAKE YOU HOME. A ELECTRICAL ASSEMBLIES SUPERVISOR OR FLIGHT SUPERINTENDENT CANNOT BE MADE A RESPONSIBLE POWERTRAIN CONTROL SYSTEMS ENGINEER. - We recommend that a responsible person [...] call the Saturday before. Your surgeon s almond pan finisher will tell you what time to call the office. - If you have not reached the departmental almond pan finisher by 5 P.M., call [phone] after 5 P.M. the day before your surgery. Please be aware that emergency situations arise, which may delay or change your surgical time. If this happens, we will notify you as soon as possible and regret any inconvenience. If you already have an Advance Directive, please fax a copy to [phone] or email to for it to be [...] Ashleigh Serra MD documented in this encounter [facility] 04-29-2023 History and physical note HISTORY [...] fevers. Neuro: No history of TIA's, stroke, STUDIO TECHNICIAN tumor, impaired sensorium, hemiplegia, paraplegia or quadraplegia. No neurological symptoms or problems. Respiratory: No history of current cough or dyspnea, or pneumonia in the past 6 weeks. No history of respiratory/pulmonary symptoms or problems. Cardiovascular: +HTN no hx of angina, [place], stent placement GI: No history of GI [...] +hx of prostate cancer s/p prostatectomy no TOP CUTTER Psych: No history of psychiatric symptoms or [...] TIME: 12:40 PM documented in this encounter [facility] 04-29-2023 Note HNO ID: [id number] Author: Shaji Bishop MD Service: ? Author [...] Smoking normal High (more content not included)... [facility] 02-21-2023 Note OPERATIVE NOTE OPERATION DATE: [...] was further verified by calling his local wax ball molder prior to surgery and coming to a conclusion of what would be best suited for the patient. This was done; however, the local wax ball molder once again had not seen the patient [...] ensuring mobility, phacoemulsification was performed in a seewiui-mia-rjqupj-type fashion. After all nuclear material had been [...] the following day for postoperative care. [facility] 02-21-2023 Note HISTORY AND PHYSICAL EXAMINATION [...] go forward with his elective procedure. [facility] 02-04-2023 History of Present illness Narrative Patient referred to Blood Management for anemia evaluation/pre-surgical optimization. Current and complete lab data unavailable. Unable to complete evaluation. documented in this encounter [facility] 02-01-2023 Instructions Luma Garcia PA-C - [...] the next three days at the nearest [facility] lab. If you would like, you [...] us: If you are having surgery at [facility] or If you are having surgery at [place], [place], [facility] , [place], [place], [place], [facility], or [facility] documented in this encounter [facility] 02-01-2023 History of Present illness Narrative [...] TIME: 2:00 PM documented in this encounter [facility] 02-01-2023 History of Present illness Narrative [...] 2023 1:45 PM documented in this encounter [facility] Evaluation note Diagnosis Primary osteoarthritis of left knee- Primary Primary localized osteoarthrosis, lower leg Primary osteoarthritis of right knee Primary localized osteoarthrosis, lower leg Anemia, unspecified type [facility] Pain Generalized pain [facility] Diagnosis Pre-op evaluation- Primary Preoperative examination, unspecified Arthritis of left knee Unspecified arthropathy, lower leg [facility] Diagnosis Primary osteoarthritis of left knee Primary localized osteoarthrosis, lower leg Primary osteoarthritis of right knee Primary localized osteoarthrosis, lower leg Anemia, unspecified type Arthritis of left knee Unspecified arthropathy, lower leg [facility] Arthritis of left knee- Primary Unspecified arthropathy, lower leg Arthritis of left knee Unspecified arthropathy, lower leg [facility] Pain- Primary Generalized pain Arthritis of left knee Unspecified arthropathy, lower leg [facility] Diagnosis Arthritis of left knee- Primary Unspecified arthropathy, lower leg Arthritis of left knee Unspecified arthropathy, lower leg documented in this encounter [facility] note* Diagnosis S/P total knee arthroplasty, left- Primary Acute post-operative pain documented in this encounter [facility] note* Diagnosis Arthritis of left knee Unspecified arthropathy, lower leg Arthritis of left knee Unspecified arthropathy, lower leg documented in this encounter [facility] note* Diagnosis Primary osteoarthritis of right knee- Primary Primary localized osteoarthrosis, lower leg documented in this encounter [facility] note* Diagnosis Pre-operative examination- Primary Preoperative examination, [...] osteoarthrosis, lower leg documented in this encounter [facility] note* Diagnosis Primary osteoarthritis of right knee Primary localized osteoarthrosis, lower leg Primary osteoarthritis of right knee Primary localized osteoarthrosis, lower leg documented in this encounter [facility] note* Diagnosis Primary osteoarthritis of right knee Primary localized osteoarthrosis, lower leg Primary osteoarthritis of right knee Primary localized osteoarthrosis, lower leg documented in this encounter [facility] note* Diagnosis Status post total knee replacement, right Primary osteoarthritis of right knee Primary localized osteoarthrosis, lower leg documented in this encounter [facility] note* Diagnosis Status post total knee replacement, right Primary osteoarthritis of right knee Primary localized osteoarthrosis, lower leg [facility] Diagnosis S/P total knee arthroplasty, right- Primary documented in this encounter [facility] note* Diagnosis S/P total knee arthroplasty, right- Primary Status post left knee replacement [facility]* Diagnosis S/P total knee arthroplasty, right documented in this encounter [facility] for referral (narrative)* Diagnostic Procedure Only (Routine) - Closed Specialty Diagnoses / Procedures Referred By Sumi t Referred To Contact XR IMAGING Diagnoses Pain Procedures XR KNEE GENERAL 4V AP BOTH/PA BOTH/LAT/MERC BILATERAL RADIOLOGIC EXAM KNEE COMPLETE 4/MORE VIEWS Luma Garcia PA-C [address] [place] [address] Xr Imaging Referral ID Status Reason Start Date Expiration Date V isits Requested Visits Authorized [id number] Closed Auto-Generate d Referral 01/23/2023 02/22/[address] [facility] for referral (narrative)* Outpatient Procedure (Routine) - Authorized Specialty Diagnoses / Procedures Referred By Contac t Referred To Contact [facility] [place] Diagnoses Pre-op evaluation Procedures ECHO ECHO TTHRC R-T 2D W/WOM-MODE COMPL SPEC&COLR D Valeria Farmer MD [address] [place] [address] [facility] [place] [address] Referral ID Status Reason Start Date Expiration Date Visits Requested Visits Authorized [id number] Authorized Auto-Generat ed Referral 04/29/2023 04/28/[address] [facility] for referral (narrative)* Diagnostic Procedure Only (Routine) - Closed Specialty Diagnoses / Procedures Referred By Contac t Referred To Contact XR IMAGING Diagnoses Pain Procedures XR KNEE GENERAL 4V AP BOTH/PA BOTH/LAT/MERC BILATERAL RADIOLOGIC EXAM KNEE COMPLETE 4/MORE VIEWS Luma Garcia PA-C [address] [place] [address] Xr Imaging Referral ID Status Reason Start Date Expiration Date V isits Requested Visits Authorized [id number] Closed Auto-Generate d Referral 01/23/2023 02/22/[address] [facility] for referral (narrative)* Diagnostic Procedure Only (Routine) - Closed Specialty Diagnoses / Procedures Referred By Contac t Referred To Contact XR IMAGING Diagnoses Arthritis of left knee Procedures XR KNEE POST OP 3V AP/LAT/MERCHANT LEFT RADIOLOGIC EXAMINATION KNEE 3 VIEWS Shaji Bishop MD [address] [place] [id number] Xr Imaging [facility] Referral ID Status Reason Start Date Expiration Date V isits Requested Visits Authorized [id number] Closed Auto-Generate d Referral 05/16/2023 03/05/[address] [facility] for referral (narrative)* Diagnostic Procedure Only (Routine) - Closed Specialty Diagnoses / Procedures Referred By Contac t Referred To Contact XR IMAGING Diagnoses Primary osteoarthritis of right knee Procedures XR KNEE GENERAL 4V AP BOTH/PA BOTH/LAT/MERC RIGHT RADIOLOGIC EXAM KNEE COMPLETE 4/MORE VIEWS Shaji Bishop MD [address] [place] [id number] Xr Imaging [facility] Referral ID Status Reason Start Date Expiration Date V isits Requested Visits Authorized [id number] Closed Auto-Generate d Referral 06/12/2023 07/09/[address] [facility] for referral (narrative)* Diagnostic Procedure Only (Routine) - Authorized Specialty Diagnoses / Procedures Referred By Contac t Referred To Contact XR IMAGING Diagnoses S/P total knee arthroplasty, right Procedures XR KNEE POST OP 3V AP/LAT/MERCHANT BILATERAL RADIOLOGIC EXAMINATION KNEE 3 VIEWS Luma Garcia PA-C [address] [place] [address] Xr Imaging [facility] Referral ID Status Reason Start Date Expiration Date Visits Requested Visits Authorized [id number] Authorized Auto-Generat ed Referral 11/01/2024 1 1 * Physical Therapy (Routine) - Pending Review Specialty Diagnoses / Procedures Referred By Contac t Referred To Contact [facility] Diagnoses S/P total knee arthroplasty, right Procedures CONSULT TO PHYSICAL THERAPY PHYSICAL THERAPY EVALUATION HIGH COMPLEX 45 MINS Luma Garcia PA-C [address] [place] [address] [facility] [place] [address] [place] [address] Referral ID Status Reason Start Date Expiration Date Visits Requested Visits Authorized [id number] Pending Review PCP Requested Referral Auto-Generate d Referral 10/02/[address] [facility] for referral (narrative)* Diagnostic Procedure Only (Routine) - Closed Specialty Diagnoses / Procedures Referred By Contac t Referred To Contact XR IMAGING Diagnoses S/P total knee arthroplasty, right Procedures XR KNEE POST OP 3V AP/LAT/MERCHANT BILATERAL RADIOLOGIC EXAMINATION KNEE 3 VIEWS Luma Garcia PA-C [address] [place] [address] [place] [address] Referral ID Status Reason Start Date Expiration Date V isits Requested Visits Authorized [id number] Closed Auto-Generate d Referral 10/03/2023 11/01/[address] [facility] for visit Narrative* Diagnostic Procedure Only (Routine) - Closed Specialty Diagnoses / Procedures Referred By Contac t Referred To Contact XR IMAGING Diagnoses Primary osteoarthritis of right knee Procedures XR KNEE GENERAL 4V AP BOTH/PA BOTH/LAT/MERC RIGHT RADIOLOGIC EXAM KNEE COMPLETE 4/MORE VIEWS Shaji Bishop MD [address] [place] [address] [place] [address] Referral ID Status Reason Start Date Expiration Date V isits Requested Visits Authorized [id number] Closed Auto-Generate d Referral 06/12/2023 07/09/2024 1 1 [facility] Reason for Referral Specialty Diagnoses / Procedures Referred By Contac t Referred To Contact CT IMAGING Diagnoses Primary osteoarthritis of left knee Primary osteoarthritis of right knee Anemia, unspecified type Procedures CT KNEE WO IVCON LEFT CT LOWER EXTREMITY W/O CONTRAST MATERIAL Luma Garcia PA-C [address] [place] [address] Ct Imaging Referral ID Status Reason Start Date Expiration Date Visits Requested Visits Authorized [id number] Pending Review Auto-Generat ed Referral 02/01/2023 03/02/2024 1 1 Referral ID Status Reason Start Date Expiration Date V isits Requested Visits Authorized [id number] Closed Auto-Generate d Referral 02/01/2023 03/02/2024 1 1 Specialty Diagnoses / Procedures Referred By Contac t Referred To Contact [facility] Diagnoses S/P total knee arthroplasty, left Acute post-operative pain Procedures CONSULT TO PHYSICAL THERAPY PHYSICAL THERAPY EVALUATION HIGH COMPLEX 45 MINS Luma Garcia PA-C [address] [place] [address] [facility] [address] [address] Referral ID Status Reason Start Date Expiration Date Visits Requested Visits Authorized [id number] Pending Review PCP Requested Referral Auto-Generate d Referral 06/07/2023 06/06/2024 99 99 Specialty Diagnoses / Procedures Referred By Contac t Referred To Contact CT IMAGING Diagnoses Primary osteoarthritis of right knee Procedures CT KNEE WO IVCON RIGHT CT LOWER EXTREMITY W/O CONTRAST MATERIAL Shaji Bishop MD [address] [place] [address] Ct Imaging [facility] Referral ID Status Reason Start Date Expiration Date Visits Requested Visits Authorized [id number] Pending Review Auto-Generat ed Referral 06/12/2023 07/09/2024 1 1 Specialty Diagnoses / Procedures Referred By Contac t Referred To Contact Anesthesiology Diagnoses Primary osteoarthritis of right knee Procedures CONSULT TO ANESTHESIOLOGY OFFICE/OUTPATIENT [facility] MDM 60-74 MINUTES Shaji Bishop MD [address] [place] [address] Referral ID Status Reason Start Date Expiration Date Visits Requested Visits Authorized [id number] Authorized PCP Requested Referral 06/12/2023 06/09/2024 1 1 Specialty Diagnoses / Procedures Referred By Contac t Referred To Contact XR IMAGING Diagnoses Primary osteoarthritis of right knee Procedures XR KNEE GENERAL 4V AP BOTH/PA BOTH/LAT/MERC RIGHT RADIOLOGIC EXAM KNEE COMPLETE 4/MORE VIEWS Shaji Bishop MD [address] [place] [phone] Xr Imaging [place] [address] Referral ID Status Reason Start Date Expiration Date Visits Requested Visits Authorized [id number] Pending Review Auto-Generat ed Referral 06/12/2023 07/09/2024 1 1 Specialty Diagnoses / Procedures Referred By Contac t Referred To Contact XR IMAGING Diagnoses Primary osteoarthritis of right knee Procedures XR KNEE POST OP 3V AP/LAT/MERCHANT RIGHT RADIOLOGIC EXAMINATION KNEE 3 VIEWS Shaji Bishop MD [address] [place] [phone] Xr Imaging [place] [address] Referral ID Status Reason Start Date Expiration Date Visits Requested Visits Authorized [id number] Pending Review Auto-Generat ed Referral 06/12/2023 07/09/2024 1 1 Specialty Diagnoses / Procedures Referred By Contac t Referred To Contact [facility] Diagnoses Primary osteoarthritis of right knee Procedures ECG COMPLETE ECG ROUTINE ECG W/LEAST 12 LDS W/I&R Shaji Bishop MD [address] [place] [phone] [facility] [facility] [place] [phone] Referral ID Status Reason Start Date Expiration Date Visits Requested Visits Authorized [id number] Pending Review Auto-Generat ed Referral 06/12/2023 06/09/2024 1 1 Referral ID Status Reason Start Date Expiration Date V isits Requested Visits Authorized [id number] Closed Auto-Generate d Referral 06/12/2023 07/09/2024 1 1 Specialty Diagnoses / Procedures Referred By Contac t Referred To Contact Diagnoses Status post total knee replacement, right Primary osteoarthritis of right knee Luma Garcia PA-C [address] [place] [id number] Referral ID Status Reason Start Date Expiration Date V isits Requested Visits Authorized [id number] Pending Review 1 1 Summary Purpose Family History No Family History Records FoundNo Family History Records Found Advance Directives No Advanced Directives Records FoundNo Advanced Directives Records Found Health Concerns Problem Noted Date Diagnosed Date 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 Problem Noted Date Diagnosed Date 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 Problem Noted Date Diagnosed Date 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 Problem Noted Date Diagnosed Date 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 Problem Noted Date Diagnosed Date 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 Problem Noted Date Diagnosed Date 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 Problem Noted Date Diagnosed Date 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 Problem Noted Date Diagnosed Date 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 Problem Noted Date Diagnosed Date 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 Problem Noted Date Diagnosed Date 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 Problem Noted Date Diagnosed Date 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 Additional Source Comments Source Comments (unrecognize d section and content) In the event this informatio n is protected by the Federal Confidentiality of Alcohol and Drug Abuse Patient Records regulations: The Federal rules restrict any use of the information to criminally investigate or prosecute any alcohol or drug abuse patient.[facility] the event this information is protected by the Federal Confidentiality of Alcohol and Drug Abuse Patient Records regulations: The Federal rules restrict any use of the information to criminally investigate or prosecute any alcohol or drug abuse patient.[facility] the event this information is protected by the Federal Confidentiality of Alcohol and Drug Abuse Patient Records regulations: The Federal rules restrict any use of the information to criminally investigate or prosecute any alcohol or drug abuse patient.[facility] the event this information is protected by the Federal Confidentiality of Alcohol and Drug Abuse Patient Records regulations: The Federal rules restrict any use of the information to criminally investigate or prosecute any alcohol or drug abuse patient.[facility] the event this information is protected by the Federal Confidentiality of Alcohol and Drug Abuse Patient Records regulations: The Federal rules restrict any use of the information to criminally investigate or prosecute any alcohol or drug abuse patient.[facility] the event this information is protected by the Federal Confidentiality of Alcohol and Drug Abuse Patient Records regulations: The Federal rules restrict any use of the information to criminally investigate or prosecute any alcohol or drug abuse patient.[facility] the event this information is protected by the Federal Confidentiality of Alcohol and Drug Abuse Patient Records regulations: The Federal rules restrict any use of the information to criminally investigate or prosecute any alcohol or drug abuse patient.[facility] the event this information is protected by the Federal Confidentiality of Alcohol and Drug Abuse Patient Records regulations: The Federal rules restrict any use of the information to criminally investigate or prosecute any alcohol or drug abuse patient.[facility] the event this information is protected by the Federal Confidentiality of Alcohol and Drug Abuse Patient Records regulations: The Federal rules restrict any use of the information to criminally investigate or prosecute any alcohol or drug abuse patient.[facility] HospitalIn the event this information is protected by the Federal Confidentiality of Alcohol and Drug Abuse Patient Records regulations: The Federal rules restrict any use of the information to criminally investigate or prosecute any alcohol or drug abuse patient.[facility] HospitalIn the event this information is protected by the Federal Confidentiality of Alcohol and Drug Abuse Patient Records regulations: The Federal rules restrict any use of the information to criminally investigate or prosecute any alcohol or drug abuse patient.[facility] HospitalIn the event this information is protected by the Federal Confidentiality of Alcohol and Drug Abuse Patient Records regulations: The Federal rules restrict any use of the information to criminally investigate or prosecute any alcohol or drug abuse patient.[facility] HospitalIn the event this information is protected by the Federal Confidentiality of Alcohol and Drug Abuse Patient Records regulations: The Federal rules restrict any use of the information to criminally investigate or prosecute any alcohol or drug abuse patient.[facility] HospitalIn the event this information is protected by the Federal Confidentiality of Alcohol and Drug Abuse Patient Records regulations: The Federal rules restrict any use of the information to criminally investigate or prosecute any alcohol or drug abuse patient.[facility] HospitalIn the event this information is protected by the Federal Confidentiality of Alcohol and Drug Abuse Patient Records regulations: The Federal rules restrict any use of the information to criminally investigate or prosecute any alcohol or drug abuse patient.[facility] HospitalIn the event this information is protected by the Federal Confidentiality of Alcohol and Drug Abuse Patient Records regulations: The Federal rules restrict any use of the information to criminally investigate or prosecute any alcohol or drug abuse patient.[facility] HospitalIn the event this information is protected by the Federal Confidentiality of Alcohol and Drug Abuse Patient Records regulations: The Federal rules restrict any use of the information to criminally investigate or prosecute any alcohol or drug abuse patient.[facility] HospitalIn the event this information is protected by the Federal Confidentiality of Alcohol and Drug Abuse Patient Records regulations: The Federal rules restrict any use of the information to criminally investigate or prosecute any alcohol or drug abuse patient.[facility] HospitalIn the event this information is protected by the Federal Confidentiality of Alcohol and Drug Abuse Patient Records regulations: The Federal rules restrict any use of the information to criminally investigate or prosecute any alcohol or drug abuse patient.[facility] HospitalIn the event this information is protected by the Federal Confidentiality of Alcohol and Drug Abuse Patient Records regulations: The Federal rules restrict any use of the information to criminally investigate or prosecute any alcohol or drug abuse patient.[facility] HospitalIn the event this information is protected by the Federal Confidentiality of Alcohol and Drug Abuse Patient Records regulations: The Federal rules restrict any use of the information to criminally investigate or prosecute any alcohol or drug abuse patient.[facility] HospitalIn the event this information is protected by the Federal Confidentiality of Alcohol and Drug Abuse Patient Records regulations: The Federal rules restrict any use of the information to criminally investigate or prosecute any alcohol or drug abuse patient.[facility] HospitalIn the event this information is protected by the Federal Confidentiality of Alcohol and Drug Abuse Patient Records regulations: The Federal rules restrict any use of the information to criminally investigate or prosecute any alcohol or drug abuse patient.[facility] HospitalIn the event this information is protected by the Federal Confidentiality of Alcohol and Drug Abuse Patient Records regulations: The Federal rules restrict any use of the information to criminally investigate or prosecute any alcohol or drug abuse patient.[facility] Reason for Visit (unrecogniz ed section and content) Reason Comments New Knee Pain Reason Comments Radio Gen A21 Specialty Diagnoses / Procedures Referred By Contac t Referred To Contact XR IMAGING Diagnoses Pain Procedures XR KNEE GENERAL 4V AP BOTH/PA BOTH/LAT/MERC BILATERAL RADIOLOGIC EXAM KNEE COMPLETE 4/MORE VIEWS Luma Garcia, PA-C [address] [place] [address] Xr Imaging Referral ID Status Reason Start Date Expiration Date V isits Requested Visits Authorized [id number] Closed Auto-Generate d Referral 01/23/2023 02/22/2024 1 1 Specialty Diagnoses / Procedures Referred By Contac t Referred To Contact CT IMAGING Diagnoses Primary osteoarthritis of left knee Primary osteoarthritis of right knee Anemia, unspecified type Procedures CT KNEE WO IVCON LEFT CT LOWER EXTREMITY W/O CONTRAST MATERIAL Luma Garcia PA-C [address] [place] [address] Ct Imaging Referral ID Status Reason Start Date Expiration Date V isits Requested Visits Authorized [id number] Closed Auto-Generate d Referral 02/01/2023 03/02/2024 1 [...] EXAMINATION KNEE 3 VIEWS Shaji Bishop MD [address] [place] [address] Xr Imaging [facility] Referral ID Status Reason Start Date Expiration Date V isits Requested Visits Authorized [id number] Closed Auto-Generate d Referral 05/16/2023 03/05/2024 1 1 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 - Other Reason Comments Pre-Op Visit Reason Comments Radiology CT Specialty Diagnoses / Procedures Referred By Contac t Referred To Contact CT IMAGING Diagnoses Primary osteoarthritis of right knee Procedures CT KNEE WO IVCON RIGHT CT LOWER EXTREMITY W/O CONTRAST MATERIAL Shaji Bishop MD [address] [place] [address] Ct Imaging [facility] Referral ID Status Reason Start Date Expiration Date V isits Requested Visits Authorized [id number] Closed Auto-Generate d Referral 06/12/2023 07/09/2024 1 1 Reason Onset Date Comments Refill Request 09/09/2023 Reason Onset Date Comments Refill Request 09/16/2023 Reason Comments Radiology XR Specialty Diagnoses / Procedures Referred By Contac t Referred To Contact XR IMAGING Diagnoses S/P total knee arthroplasty, right Procedures XR KNEE POST OP 3V AP/LAT/MERCHANT BILATERAL RADIOLOGIC EXAMINATION KNEE 3 VIEWS Luma Garcia PA-C [address] [place] [address] [place] [address] Referral ID Status Reason Start Date Expiration Date V isits Requested Visits Authorized [id number] Closed Auto-Generate d Referral 10/03/2023 11/01/2024 1 1 Care Teams (unrecognized sec tion and content) Lead Press Operator Relationship Specialty Start Date End Date Merline Fuller MD PCP - General Family Medicine 08/01/11 Lead Press Operator Relationship Specialty Start Date End Date Merline Fuller MD PCP - General Family Medicine 08/01/11 Lead Press Operator Relationship Specialty Start Date End Date Merline Fuller MD PCP - General Family Medicine 08/01/11 Lead Press Operator Relationship Specialty Start Date End Date Merline Fuller MD PCP - General Family Medicine 08/01/11 Lead Press Operator Relationship Specialty Start Date End Date Merline Fuller MD PCP - General Family Medicine 08/01/11 Lead Press Operator Relationship Specialty Start Date End Date Merline Fuller MD PCP - General Family Medicine 08/01/11 Lead Press Operator Relationship Specialty Start Date End Date Merline Fuller MD PCP - General Family Medicine 08/01/11 Lead Press Operator Relationship Specialty Start Date End Date Merline Fuller MD PCP - General Family Medicine 08/01/11 Lead Press Operator Relationship Specialty Start Date End Date Merline Fuller MD PCP - General Family Medicine 08/01/11 Lead Press Operator Relationship Specialty Start Date End Date Merline Fuller MD PCP - General Family Medicine 08/01/11 Lead Press Operator Relationship Specialty Start Date End Date Merline Fuller MD PCP - General Family Medicine 08/01/11 Lead Press Operator Relationship Specialty Start Date End Date Merline Fuller MD PCP - General Family Medicine 08/01/11 Lead Press Operator Relationship Specialty Start Date End Date Merline Fuller MD PCP - General Family Medicine 08/01/11 Lead Press Operator Relationship Specialty Start Date End Date Merline Fuller MD PCP - General Family Medicine 08/01/11 Lead Press Operator Relationship Specialty Start Date End Date Merline Fuller MD PCP - General Family Medicine 08/01/11 Lead Press Operator Relationship Specialty Start Date End Date Merline Fuller MD PCP - General Family Medicine 08/01/11 Lead Press Operator Relationship Specialty Start Date End Date Merline Fuller MD PCP - General Family Medicine 08/01/11 Lead Press Operator Relationship Specialty Start Date End Date Merline Fuller MD PCP - General Family Medicine 08/01/11 Lead Press Operator Relationship Specialty Start Date End Date Merline Fuller MD PCP - General Family Medicine 08/01/11 Lead Press Operator Relationship Specialty Start Date End Date Merline Fuller MD PCP - General Family Medicine 08/01/11 (unrecognized sect ion and content) No Status Records FoundNo Status Records Found INFORMATION SOURCE (unrecogn ized section and content) DATE CREATED AUTHOR 03/03/2023 [facility] DATE CREATED AUTHOR AUTHOR'S ORGANIZ ATION 04/03/2024 [facility] FOR RECORDS PERTAINING TO PATIENTS WHO [...] BE BASED ON THE PRIMARY CLINICAL RECORDS. [employer] provides no warranty or guarantee of the accuracy or completeness of information in this document.
== END 2024-11-11 07:52 | disposition home or self-care (01) ==
LOC: MRI 07:51
PROVIDERS: PCP Family Medicine; Visit Provider Family Medicine
DX: K83.8 Other specified diseases of biliary tract (principal)
CPT/HCPCS: 74181

== ENCOUNTER 2024-11-12 09:18 | Outpatient (OUT) | payer MEDICARE, OTHER, SELFPAY ==
[2024-11-12 09:47] LABS: Basophils Absolute Auto 0.1 10^3/uL (0.0-0.1); Basophils Percent Auto 0.6 % (0.2-2.0); Eosinophils Absolute Auto 0.2 10^3/uL (0.0-0.7); Eosinophils Percent Auto 2.9 % (0.9-7.0); Hematocrit 41.6 % (42.0-54.0); Hemoglobin 12.9 g/dL (14.0-18.0); Immature Granulocytes Abs Auto 0.06 10^3/uL (0.00-0.03); Immature Granulocytes Pct Auto 0.7 % (0.0-0.5); Lymphocytes Absolute Auto 2.4 10^3/uL (1.2-3.8); Mean Corpuscular Hemoglobin 31.4 pg (25.9-34.0); Mean Corpuscular Volume 101.2 fL (80.0-94.0); Mean Platelet Volume 10.3 fL (9.5-13.5); Monocytes Percent Auto 12.6 % (1.7-12.0); Neutrophils Absolute Auto 4.4 10^3/uL (1.4-6.5); Neutrophils Percent Auto 54.2 % (43.0-75.0); Platelet Count 384 10^3/uL (150-450); Red Blood Count 4.11 10^6/uL (4.70-6.10); Red Cell Distribution Width 13.6 % (11.0-15.0); White Blood Count 8.2 10^3/uL (4.0-11.0)
[2024-11-12 09:54] LABS: INR 0.97; Partial Thromboplastin Time 26.5 sec (22.3-36.2); Prothrombin Time 10.3 sec (9.0-11.6)
[2024-11-12 10:13] LABS: Alanine Aminotransferase 159 U/L (16-63); Albumin Globulin Ratio 0.6; Albumin Level 3.1 g/dL (3.4-5.0); Alkaline Phosphatase 653 U/L (46-116); Amylase 76 U/L (25-115); Aspartate Amino Transferase 89 U/L (15-37); BUN Creatinine Ratio 19.1; Bilirubin Total 0.9 mg/dL (0.2-1.0); Calcium 9.3 mg/dL (8.5-10.1); Carbon Dioxide 28.1 mmol/L (21.0-32.0); Chloride 104 mmol/L (98-107); Estimated GFR (African America >60 (>=60 mL/min/1.73m^2); Estimated GFR (Non-African Ame >60 (>=60 mL/min/1.73m^2); Glucose 113 mg/dL (74-106); Potassium 4.1 mmol/L (3.5-5.1); Sodium 141 mmol/L (136-145); Total Protein 8.1 g/dL (6.4-8.2)
== END 2024-11-12 09:19 | disposition home or self-care (01) ==
LOC: LAB 09:20
PROVIDERS: PCP Family Medicine; Visit Provider Family Medicine
DX: K80.20 Calculus of gallbladder without cholecystitis without obstruction (principal)
CPT/HCPCS: 36415; 80053; 82150; 83690; 85025; 85610; 85730

== ENCOUNTER 2025-02-15 07:02 | Outpatient (OUT) | payer MEDICARE, OTHER, SELFPAY ==
--- NOTE | 2025-02-15 | US_ITS ---
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 FINDINGS: Pancreas: Visualized portions appear unremarkable. Liver: Unremarkable. Hepatopedal flow seen within the portal vein. Presumed gas is seen within the duong hepatis. Gallbladder: Gallbladder sludge. Adenomyomatosis. CBD: 10 mm RT KIDNEY: No Hydronephrosis small cyst. US/US right upper quadrant IMPRESSION: GALLBLADDER SLUDGE WITH ADENOMYOMATOSIS. NO ULTRASOUND EVIDENCE OF ACUTE CHOLECYSTITIS. PRESUMED GAS IS SEEN WITHIN THE DUONG HEPATIS LIKELY BILIARY GIVEN THE HISTORY. THIS CAN BE CONFIRMED BY CT.. Impression dictated by: Michelet Duffy Jr., D.O. 02/15/2025 1:42 PM Dictation Location: [place] [address] Electronically authenticated by: [id number] Y Date: 02/15/2025 13:42
== END 2025-02-15 07:03 | disposition home or self-care (01) ==
LOC: US 07:02
PROVIDERS: PCP Family Medicine; Visit Provider Surgery
DX: K80.51 Calculus of bile duct without cholangitis or cholecystitis with obstruction (principal)
CPT/HCPCS: 76705

== ENCOUNTER 2025-04-08 18:30 | Emergency (ER) | payer OTHER, MEDICARE, SELFPAY ==
--- OUTSIDE RECORDS SUMMARY | 2024-11-20 03:38 | XMS_ITS ---
Author Organization [facility] in [place] Address [address] [place] [address] Care Team Providers Care Press Department Manager Name Role Phone Solomon Hawkins Primary Care Provider REASON FOR VISIT Ambien refill Medications Medication SIG (Take, Route, Fr equency, Duration) Notes Start Date End Date Status Zolpidem Tartrate 10 MG 1 tablet at bedt cristino as needed Orally Once a day for 30 days 11/20/2024 Active Encounters Encounter Location Date Provider Diagnosis [address] [address] 11/20/2024 Solomon Hawkins Personal history of malignant neoplasm of prostate Z85.46 Assessments Encounter Date Diagnosis (ICD Code) Assessment Notes Treatment Notes Treatment Clinical Notes Section Notes 11/20/2024 Personal history of malignant neoplasm of prostate (ICD-10 - Z85.46) Plan Of Treatment Medication Medication Name Sig Start Date Stop Date Notes Zolpidem Tartrate 10 MG 1 tablet at bedt cristino as needed Orally Once a day for 30 days 11/20/2024 Progress Notes * Ronnie OCONNOR SrDOB:[birth year] (74 yo M)Acc No.[id number]:11/20/2024 Patient: Ramiro MARTINEZQUERonnie STORM Sr :1950 A ge:74 Y S ex:Male Address:[address] [place] [id number] * Refills Refill Zolpidem Tartrate Tablet, 10 MG, Orally, 30 Tablet, 1 tablet at bedtime as needed, Once a day, 30 days, Refills=2 * true * Date: Generated for Luis ariza/Galdino/Yanira on: 0 04/08/2025 06:39 PM EDT
--- OUTSIDE RECORDS SUMMARY | 2024-12-03 09:00 | XMS_ITS ---
Author Organization The [facility] in [place] Address [address] [place] [address] Care Team Providers Care Vector Control Specialist Name Role Phone Solomon Hawkins Primary Care Provider REASON FOR VISIT refill Medications Medication SIG (Take, Route, Frequency, Duration) Notes Start Date End Date Status Pantoprazole Sodium 40 MG TAKE 1 TABLET BY MOUTH EVERY DAY IN THE EVENING for 30 Active Encounters Encounter Location Date Provider Diagnosis [facility] [address] [place] [address] 12/03/2024 Solomon Hawkins Insomnia, unspecifi ed type G47.00 Assessments Encounter Date Diagnosis (ICD Code) Assessment Notes Treatment Notes Treatment Clinical Notes Section Notes 12/03/2024 Insomnia, unspecified type (ICD-10 - G47.00) Plan Of Treatment Medication Medication Name Sig Start Date Stop Date Notes Pantoprazole Sodium 40 MG TAKE 1 TABLET BY MOUTH EVERY DAY IN THE EVENING for 30 Progress Notes * Ronnie OCONNOR SrDOB:[birth year] (74 yo M)Acc No.[id number]:12/03/2024 Patient: Ramiro GREYRonnie Sr :1950 A ge:74 Y S ex:Male Address:[address] [place] [phone] * Refills Refill Pantoprazole Sodium Tablet Delayed Release, 40 MG, 30 Tablet, TAKE 1 TABLET BY MOUTH EVERY DAY IN THE EVENING, 30, Refills=6 * true * Date: Generated for Luis ariza/Galdino/Yanira on: 0 04/08/2025 06:39 PM EDT
--- OUTSIDE RECORDS SUMMARY | 2025-02-15 15:32 | XMS_ITS ---
Author Organization [facility] in [place] Address [address] [place] [address] Care Team Providers Care Medical Technologist Hematology Name Role Phone Solomon Hawkins Primary Care Provider [phone] REASON FOR VISIT US results- Encounters Encounter Location Date Provider Diagnosis [facility] [address] [place] [address] 02/15/2025 Solomon Hawkins Plan Of Treatment No Information Progress Notes * Ronnie OCONNOR SrDOB:[birth year] (75 yo M)Acc No.[id number]:02/15/2025 Patient: Ramiro GREYRonnie Sr :1950 A ge:75 Y S ex:Male Address:[address] [place] [phone] * true * Date: Generated for Luis ariza/Ramóng/eTransmitting on: 0 04/08/2025 06:39 PM EDT
[2025-04-08 18:32] VITALS: BP 156/99; PULSE 106; TEMP 37.1; O2SAT 99; BMI 27.0
--- NOTE | 2025-04-08 18:34 | CT_ITS ---
The [address] [address] Patient Name: PRISCILA ABEBE MRN: [id number] date: 1950 Sex: M Assigned Patient Location: ED.MAIN Current Patient Location: ED.MAIN Accession/Order Number: [id number] Exam Date: 04/08/2025 19:38 Report Date: 04/08/2025 19:42 At the request of: CÉSAR COOK NP Procedure: CT lumbar spine wo con CT lumbar spine wo con 04/08/2025 6:59 PM History:Fall, back pain TECHNIQUE: Multi detector CT axial slices of the lumbar spine were obtained without IV contrast. Volumetric acquisition sagittal, coronal, and 3-D reconstructions were performed and reviewed on a separate workstation. CT was performed with one or more of the following dose reduction techniques: Automated exposure control, adjustment of the mA and/or kV according to patient size, or use of iterative reconstruction technique. COMPARISON: None FINDINGS: There is preservation of the vertebral body heights. There is moderate to severe disc height loss throughout the lumbar spine and lower thoracic spine. No fractures or dislocations are seen. There is a levoconvex curvature of the lumbar spine. Degenerative changes are noted in the sacroiliac joints. The paraspinous soft tissues are within normal limits. The visualized lung parenchyma is unremarkable. Atherosclerotic changes are noted in the abdominal aorta and its branches. CT/CT lumbar spine wo con IMPRESSION: No acute bony abnormality. There is a levoconvex curvature of the lumbar spine. Degenerative changes are noted throughout the visualized thoracolumbar spine and sacroiliac joints. Impression dictated by: Rigo Slater M.D. 04/08/2025 7:42 PM Dictation Location: [place] [address] Electronically authenticated by: [id number] Y Date: 04/08/2025 19:42
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
--- OUTSIDE RECORDS SUMMARY | 2025-04-08 18:39 | XMS_ITS | Encounter Summary ---
Author Organization [facility] Address [address] [place] [address] Care Team Providers Care Asp Net Software Developer Name Role Phone Mark Hawkins MD Primary Care Provider [phone] Source Comments In the event this information is protected by the Federal Confidentiality of Alcohol and Drug AbusePatient Records regulations: The Federal rules restrict any use of the information to criminally investigate or prosecute any alcohol or drug abuse patient.[facility] Encounter Details Date Type Department Care Team (Late st Contact Info) Description 05/06/2023 Patient Msg [facility] [address] [place] [address] Provider, [facility] ACTION REQUIRED: Skin Preparation before your surgery Social History Tobacco Use Types Packs/Day Years Used Date Smoking Tobacco: Never Passive Smoke Exposure: Never Smokeless Tobacco: Never Alcohol Use Standard Drinks/Week Comments Yes 0 (1 standard drink = 0.6 oz pure alcohol) 1 drink of vodka daily per pt 04/29/2023 Area Deprivation Index Answer Date Matthieu rded National Score (1-100), lower number is lower ri sk 73 04/29/2023 State Score (1-10), lower number is lower risk 6 04/29/2023 Data from: https://www.neighborhoodatlas.medicine.[facility].edu/. Last address used for calculation [address] 04/29/2023 Sex and Gender Information Value Date Recorded Sex Assigned at Not on file Legal Sex Male 10:11 AM EST Gender Identity Not on file Sexual Orientation Not on file Occupation Industry Job Start Date Job End Date [employer] - Self-employed Not on file Not on file Not on file documented as of this encounter Plan of Treatment Not on file documented as of this encounter Visit Diagnoses Not on filedocumented in this encounter Care Teams Asp Net Software Developer Relationship Specialty Start Date End Date Mark Hawkins MD PCP - General Family Medicine 08/01/11 documented as of this encounter
--- OUTSIDE RECORDS SUMMARY | 2025-04-08 18:39 | XMS_ITS | Clinical Summary ---
Author Organization [facility] Address [address] [place] [address] Care Team Providers Care It Systems Administrator Name Role Phone Mark Hawkins MD Primary Care Provider [phone] Allergies No known active allergies Medications atenolol (TENORMIN) 50 mg tablet Take 1 tablet by mouth once daily. Unknown Dosage. Active FAMOTIDINE (PEPCID ORAL) Take 1 tablet by mouth once daily. Unknown Dosage. Active multivitamin ORAL tablet Take 1 tablet by mouth once daily. Active atorvastatin (LIPITOR) 40 mg tablet Take 40 mg by mouth. 07/23/2022 Active lisinopril (ZESTRIL) 40 mg tablet Take 40 mg by mouth. 07/23/2022 Active amLODIPine (NORVASC) 10 mg tablet Take 10 mg by mouth once daily. 08/20/2023 Active aspirin, enteric coated (ECOTRIN LOW STRENGTH) 81 mg EC tablet Take 1 tablet by mouth two times a day. 60 tablet 09/05/2023 10:35 AM EST 09/05/2023 Active Active Problems Problem Noted Date Diagnosed Date Primary osteoarthritis of right knee 09/04/2023 Tricuspid regurgitation 08/29/2023 Assessment & Plan (08/29/2023 8:21 AM EST): Echo 04/30/23 showed - There is moderate (2+) tricuspid valve regurgitation. There is no thickening. DARCIE(PA) is 29 mm Pulmonary hypertension 08/29/2023 Assessment & Plan (08/29/2023 8:21 AM EST): Echo 04/30/23 showed - Estimated right ventricular systolic pressure is 42 mmHg consistent with mild pulmonary hypertension. Estimated right atrial pressure is 3 mmHg based on IVC assessment. Dilation of aorta 08/29/2023 Assessment & Plan (08/29/2023 8:21 AM EST): Echo 04/30/23 showed - The visualized aorta is borderline dilated with a maximal dimension of 3.9 cm. Primary osteoarthritis of left knee 05/07/2023 Hypertension 11/13/2011 Assessment & Plan (08/29/2023 8:20 AM EST): Stable on Amlodipine 10 mg, Atenolol 50 mg, and Lisinopril 40 mg daily. BP today 139/85. Assessment & Plan (04/29/2023 1:45 PM EDT): -BP this office visit: 126/75 -on atenolol, lotrel, lisinopril Hyperlipidemia 11/13/2011 Assessment & Plan (08/29/2023 8:20 AM EST): Stable on Atorvastatin 40 mg daily. GERD (gastroesophageal reflux disease) 2 Assessment & Plan (08/29/2023 8:21 AM EST): Stable on Famotidine daily. Assessment & Plan (04/29/2023 1:43 PM EDT): -on pepcid Arthritis 11/13/2011 History of prostate cancer 08/20/2011 Assessment & Plan (08/29/2023 8:23 AM EST): Hx of prostate cancer, s/p prostatectomy. Family History Medical History Relation Comments Lung Cancer [Other] Father Mesothelioma [Other] Mother Anesthesia Problems No Family History Relation Status Comments Father Mother Social History Tobacco Use Types Packs/Day Years Used Date Smoking Tobacco: Former Cigarettes 1 - 1982 Passive Smoke Exposure: Never Smokeless Tobacco: Never Alcohol Use Standard Drinks/Week Comments Yes 9.1 (1 standard drin k = 0.6 oz pure alcohol) 1 drink of vodka daily per pt 08/29/2023 [facility] Utilities Answer Date Recorded In the past 12 months has e [employer], gas, oil, or water company threatened to shut off services in your home? No 08/21/2023 Social Connection and Isolat ion Panel [NHANES] Answer Date Recorded In a typical week, how many times do you talk on the phone with family, friends, or neighbors? More than three times a week 08/21/2023 How often do you get togethe r with friends or relatives? Once a week 08/21/2023 How often do you attend chur ch or protestant services? 1 to 4 times per year 08/21/2023 Do you belong to any clubs o r organizations such as rastafari groups, unions, fraternal or athletic groups, or school groups? Yes 08/21/2023 How often do you attend meet ings of the clubs or organizations you belong to? More than 4 times per year 08/21/2023 Are you , , di vorced, , never , or living with a partner? 08/21/2023 AUDIT-C Answer Date Recorded Q1: How often do you have a drink containing alcohol? 4 or more times a week 08/21/2023 Q2: How many drinks containi ng alcohol do you have on a typical day when you are drinking? 1 or 2 Q3: How often do you have si x or more drinks on one occasion? Never 08/21/2023 Overall Financial Resource Strain (CARDIA) Answe r Date Recorded How hard is it for you to pa y for the very basics like food, housing, medical care, and heating? Not very hard 08/21/2023 PHQ-2 Answer Date Recorded PHQ-2 score 0 08/21/2023 [facility] Occupat ional Health - Occupational Stress Questionnaire Answer Date Recorded Do you feel stress - tense, restless, nervous, or anxious, or unable to sleep at night because your mind is troubled all the time - these days? Only a little 08/21/2023 Exercise Vital Sign Answer Date Recorde d On average, how many days pe r week do you engage in moderate to strenuous exercise (like a brisk walk)? 3 days 08/21/2023 On average, how many minutes do you engage in exercise at this level? 150+ min 08/21/2023 Hunger Vital Sign Answer Date Recorded Within the past 12 months, y ou worried that your food would run out before you got the money to buy more. Never true 08/21/20 23 Within the past 12 months, t he food you bought just didn't last and you didn't have money to get more. Never true 08/21/2023 PRAPARE - Transportation Answer Date Re corded In the past 12 months, has l ack of transportation kept you from medical appointments or from getting medications? No 10/2022 In the past 12 months, has l ack of transportation kept you from meetings, work, or from getting things needed for daily living? No 08/21/2023 Housing Stability Vital Sign Answer Quinten e Recorded In the last 12 months, was t here a time when you were not able to pay the mortgage or rent on time? No 08/21/2023 In the last 12 months, how many places have you lived? 1 08/21/2023 In the last 12 months, was t here a time when you did not have a steady place to sleep or slept in a long-term (including now)? No 08/21/2023 Area Deprivation Index Answer Date Matthieu rded National Score (1-100), lower number is lower ri sk 73 04/29/2023 State Score (1-10), lower number is lower risk 6 04/29/2023 Data from: https://www.neighborhoodatlas.medicine.[facility].edu/. Last address used for calculation [address] 04/29/2023 Sex and Gender Information Value Date Recorded Sex Assigned at Not on file Legal Sex Male 10:11 AM EST Gender Identity Not on file Sexual Orientation Not on file Occupation Industry Job Start Date Job End Date [employer] - Self-employed Not on file Not on file Not on file Last Filed Vital Signs Vital Sign Reading Time Taken Comments Blood Pressure 147/88 09/05/2023 7:34 AM EST Pulse 80 09/05/2023 7:34 AM EST Temperature 37 C (98.6 F) 09/05/2023 7:34 AM EST Respiratory Rate 20 09/05/2023 7:34 AM EST Oxygen Saturation 95% 09/05/2023 7:34 AM EST Inhaled Oxygen Concentration - - Weight 102.1 kg (225 lb 1.4 oz) 09/04/2023 4:55 PM EST Height 185.4 cm (6' 1 ) 09/04/2023 4:55 PM EST Body Mass Index 29.7 09/04/2023 4:55 PM EST Plan of Treatment Health Maintenance Due Date Last Done Comments Abdominal Aortic Aneurysm Screening 1950 Annual PCP Team Chronic Dise ase Visit 1969 Anxiety Screening 1969 Depression Screening 1969 Hepatitis C Screening 1969 DTaP,Tdap,Td Vaccine (1 - Tdap) [address] Colonography 01/23/1996 Cologuard (FIT-DNA) 01/23/1996 Colonoscopy 01/23/1996 Colorectal Cancer Screening 01/23/1996 Fecal Occult Blood 01/23/1996 Sigmoidoscopy 01/23/1996 Pneumococcal Vaccine: 50+ (1 of 1 - PCV) 2001 Shingrix Vaccine (1 of 2) 2001 Medicare Annual Wellness Visit 01/20/2016 Covid-19 Vaccine (1 - 2023-2 5 season) 2024 Advance Directive Discussion 10/21/2024 Influenza Vaccine (Season Ended) 2025 RSV Vaccine (1 - 1-dose 75+ series) 2026 Diabetes Screening 09/05/2026 09/05/2023, 1 11/04/2022, 08/29/2023, Additional history exists Medical Devices Implanted Type Area Comber Tender Device Identifier Shelf Expiration Date Model / Serial / Lot Component Tritanium 38mm Metal 11mm Patellar Asymmetric Knee - [id number] Implanted:Qty: 1 on 05/07/2023 at [facility] Joint - Knee Left: Bone - Knee [employer] 03/19/2028 5552-L-[id number] / / [id number] Insert Triathlon 6 9mm Tibial Bearing Condylar Stabilize Sterile Knee - [id number] Implanted:Qty: 1 on 05/07/2023 at [facility] Joint - Knee Left: Bone - Knee [employer] 03/12/2028 5531-G-609 -[id number] / / [id number] Component Triathlon 5 Pa Femoral Cruciate Retain Bead Knee Left - [id number] Implanted:Qty: 1 on 05/07/2023 at [facility] Joint - Knee Left: Bone - Knee [employer] 12/26/2027 5517-F-[id number] / / [id number] Baseplate Triathlon 6 Tritanium [id number] Tibial 4 Cruciform Peg Keel Knee - [id number] Implanted:Qty: 1 on 05/07/2023 at [facility] Joint - Knee Left: Bone - Knee [employer] 02/06/2028 5536-B-600 / / [id number] Component Tritanium 35mm Metal 10mm Patellar Asymmetric Knee - [id number] Implanted:Qty: 1 on 09/04/2023 at [facility] Joint - Knee Right: Bone - Knee [employer] 07/13/2028 5552-[id number] / / [id number] Insert Triathlon 6 9mm Tibial Bearing Condylar Stabilize Sterile Knee - [id number] Implanted:Qty: 1 on 09/04/2023 at [facility] Joint - Knee Right: Bone - Knee [employer] 05/01/2028 5531-G-609 [id number] / / [id number] Baseplate Triathlon 6 Tritanium [id number] Tibial 4 Cruciform Peg Keel Knee - [id number] Implanted:Qty: 1 on 09/04/2023 at [facility] Joint - Knee Right: Bone - Knee [employer] 07/03/2028 5536-B-600 / / [id number] Component Triathlon 5 Pa Femoral Cruciate Retain Bead Knee Right - [id number] Implanted:Qty: 1 on 09/04/2023 at [facility] Joint - Knee Right: Bone - Knee [employer] 07/10/2028 5517-[id number] / / [id number] Procedures Procedure Name Priority Date/Time Associated Diagnosis Comments BASIC METABOLIC PANEL Routine 09/05/2023 4:57 AM EST from Last 3 Months or Most Recently Relevant to Health Maintenance Results * (ABNORMAL) BASIC METABOLIC PNL (09/05/2023 4:57 AM EST) [facility] Signature Glucose 140(H) 74 - 99 mg/dL 09/05/2023 8:24 AM [facility] Comment: The [place] Diabetes Association (ADA) provides guidance for cutoff [...] Standards of Medical Care in Diabetes 2016, [place] Diabetes Association. Diabetes Care. 2016.39(Suppl 1). BUN 15 9 - 24 mg/dL 09/05/2023 8:24 AM [facility] Creatinine 0.82 0.73 - 1.22 mg/dL 09/05/2023 8:24 AM [facility] Sodium 135(L) 136 - 144 mmol/L 09/05/2023 8:24 AM [facility] Potassium 4.4 3.7 - 5.1 mmol/L 09/05/2023 8:24 AM [facility] Chloride 100 97 - 105 mmol/L 09/05/2023 8:24 AM [facility] CO2 20(L) 22 - 30 mmol/L 09/05/2023 8:24 AM [facility] Anion Gap 15 9 - 18 mmol/L 09/05/2023 8:24 AM [facility] Calcium, Total 9.4 8.5 - 10.2 mg/dL 09/05/2023 8:24 AM [facility] Estimated Glomerular Filtration Rate 93 >=60 mL/min/1.7 3m 09/05/2023 8:24 AM [facility] Comment:Estimated Glomerular Filtration Rate (eGFR) is calculated using the 2020 CKD-EPI creatinine equation. This equation utilizes serum creatinine, sex, and age as parameters. The creatinine assay has traceable calibration to isotope dilution- mass spectrometry. Refer to KDIGO guidelines for clinical interpretation. In patients with unstable renal function, e.g. those with acute kidney injury, the eGFR may not accurately reflect actual GFR. Blood BLOOD SPECIMEN / Unknown Venipuncture / Unknown 09/05/2023 4:57 AM EST 09/05/2023 5:34 AM EST us David Gaxiola MD LABORATORY Final Result [facility] [address] [place] [address], [place] from Last 3 Months or Most Recently Relevant to Health Maintenance Insurance [facility]IC[facility] MEDICARE Care Teams It Systems Administrator Relationship Specialty Start Date End Date Mark Hawkins MD PCP - General Family Medicine 08/01/11
--- OUTSIDE RECORDS SUMMARY | 2025-04-08 18:39 | XMS_ITS | Referral Summary ---
Author Organization [facility] Address [address] [place] [address] Care Team Providers Care Sas Programmer Analyst Name Role Phone Mark Hawkins MD Primary Care Provider [phone] Allergies Active Allergy Reactions Criticality Noted Date Comments Ciprofloxacin Hives 11/16/2024 Medications amLODIPine (Norvasc) 10 mg tablet Take by mouth in the morning. Active atenolol (Tenormin) 50 mg tablet Take 50 mg by mouth in the morning. Active atorvastatin (Lipitor) 40 mg tablet Take 40 mg by mouth in the morning. Active diclofenac (Voltaren) 75 mg EC tablet Take 75 mg by mouth if needed. Do not crush, chew, or split. Active zolpidem (Ambien) 10 mg tablet Take by mouth if needed at bedtime for sleep. Active pantoprazole (ProtoNix) 40 mg EC tablet Take 40 mg by mouth if needed. Do not crush, chew, or split. Active lisinopril 40 mg tablet Take 40 mg by mouth in the morning. Active acetaminophen (Tylenol) 500 mg tablet Take by mouth every 6 (six) hours if needed for mild pain (1-3 pain score). Active Social History Tobacco Use Types Packs/Day Years Used Date Smoking Tobacco: Former Cigarettes Q uit: 1969 Smokeless Tobacco: Never Tobacco Cessation:Counseling Given: Not Answered Alcohol Use Standard Drinks/Week Comments Yes 7 (1 standard drink = 0.6 oz pur e alcohol) DAILY, vodka Comments Unknown Sex and Gender Information Value Date Recorded Sex Assigned at Not on file Legal Sex Unknown 11/13/2024 8:21 AM EST Gender Identity Not on file Sexual Orientation Not on file Last Filed Vital Signs Vital Sign Reading Time Taken Comments Blood Pressure 130/40 12/17/2024 12:36 PM EST Pulse 62 12/17/2024 12:36 PM EST Temperature 36.3 C (97.3 F) 12/17/2024 12:36 PM EST Respiratory Rate 18 12/17/2024 12:36 PM EST Oxygen Saturation 96% 12/17/2024 12:36 PM EST Inhaled Oxygen Concentration - - Weight 90.3 kg (199 lb 1.2 oz) 12/17/2024 8:45 A M EST Height 185.4 cm (6' 1 ) 12/17/2024 8:45 AM EST Body Mass Index 26.26 12/17/2024 8:45 AM EST Plan of Treatment Not on file Medical Devices Implanted Type Area Optical Sales Associate Device Identifier Shelf Expiration Date Model / Serial / Lot Stent,Biliary, Dbl,[id number] - [id number] Implanted:Qty: 1 on 11/19/2024 by Maribel Cope MD at [facility] Stent N/A: Bile Duct [employer] [id number] 08/17/2026 [id number] / / [id number] Stent,Kit,Panc reatic,[id number] - [id number] Implanted:Qty: 1 on 11/19/2024 by Maribel Cope MD at [facility] Stent N/A: Bile Duct [employer] [id number] 02/20/2026 [id number] / / [id number] [place] [address] [facility] Care Teams Sas Programmer Analyst Relationship Specialty Start Date End Date Mark Hawkins MD [address] [address] PCP - General 12/17/24
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
--- OUTSIDE RECORDS SUMMARY | 2025-04-08 18:40 | XMS_ITS | Patient Health Record ---
Author Organization [facility] in [place] Address [address] [place] [address] Care Team Providers Care Oracle Soa Architect Name Role Phone Solomon Fuller Primary Care Provider [phone] Leandra Haas [phone] Allergies Allergen (clinical drug ingredient) Drug/Non Drug Allergy documented on EMR Reaction Allergy Type Onset Date Status ciprofloxacin Ciprofloxacin Itching Drug Allergy Active Results Component Value Reference Range Notes AMMONIA Reviewed date:10/26/2024 01:55:26 PM Interpretation: Performing Lab: Notes/Report: [facility] [place] , Ammonia 25 11-32 umol/L Performing Lab: see note - [facility] LB AMYLASE Reviewed date:10/26/2024 01:55:26 PM Interpretation: Performing Lab: Notes/Report: [facility] [place] , Amylase 85 25-115 U/L Performing Lab: see note ML - The [facility] LB LIPASE Reviewed date:10/26/2024 01:55:26 PM Interpretation: Performing Lab: Notes/Report: [facility] [place] , Lipase 223.0 16.0-77.0 U/L Performing Lab: see note - [facility] LB PROF 14(COMP METB) Reviewed date:11/12/2024 06:19:44 PM Interpretation: Performing Lab: Notes/Report: [facility] [place] , Sodium 141 136-145 mmol/L Potassium 4.1 3.5-5.1 mmol/L Chloride 104 98-107 mmol/L Carbon Dioxide 28.1 21.0-32.0 mmol/L Anion Gap 13.0 Glucose 113 74-106 mg/dL Blood Urea Nitrogen 18.0 7.0-18.0 mg/dL Creatinine 0.94 0.70-1.30 mg/dL Estimated GFR ( Carlie >60 >=60 mL/min/1.73m 2 Estimated GFR (Non- Kelsy >60 >=60 mL/min/1.73m 2 BUN Creatinine Ratio 19.1 Calcium 9.3 8.5-10.1 mg/dL Bilirubin Total 0.9 0.2-1.0 mg/dL Aspartate Amino Transferase 89 15-37 U/L Alanine Aminotransferase 159 16-63 U/L Alkaline Phosphatase 653 46-116 U/L Total Protein 8.1 6.4-8.2 g/dL Albumin Level 3.1 3.4-5.0 g/dL Globulin 5.0 Albumin Globulin Ratio 0.6 Performing Lab: see note ML - [facility] PTT Reviewed date:11/12/2024 06:19:44 PM Interpretation: Performing Lab: Notes/Report: [facility] [place] , Partial Thromboplastin Time 26.5 22.3-36.2 sec Performing Lab: see note ML - [facility] Occult Blood* Reviewed date:05/14/2024 09:04:41 PM Interpretation: Performing Lab: Notes/Report: [facility] [place] , Occult Blood Negative Performing Lab: see note - [facility] FREE T3 Reviewed date:10/26/2024 01:55:26 PM Interpretation: Performing Lab: Notes/Report: [facility] [place] , Free T3 2.56 2.18-3.98 pg/mL Performing Lab: see note - [facility] PROF 14(COMP METB) Reviewed date:10/26/2024 01:55:26 PM Interpretation: Performing Lab: Notes/Report: [facility] [place] , Sodium 137 136-145 mmol/L Potassium 4.2 3.5-5.1 mmol/L Chloride 102 98-107 mmol/L Carbon Dioxide 26.2 21.0-32.0 mmol/L Anion Gap 13.0 Glucose 113 74-106 mg/dL Blood Urea Nitrogen 20.0 7.0-18.0 mg/dL Creatinine 1.11 0.70-1.30 mg/dL Estimated GFR ( Carlie >60 >=60 mL/min/1.73m 2 Estimated GFR (Non- Kelsy >60 >=60 mL/min/1.73m 2 BUN Creatinine Ratio 18.0 Calcium 9.6 8.5-10.1 mg/dL Bilirubin Total 1.6 0.2-1.0 mg/dL Aspartate Amino Transferase 65 15-37 U/L Alanine Aminotransferase 106 16-63 U/L Alkaline Phosphatase 784 46-116 U/L Total Protein 8.7 6.4-8.2 g/dL Albumin Level 3.1 3.4-5.0 g/dL Globulin 5.6 Albumin Globulin Ratio 0.6 Performing Lab: see note ML - [facility] LB PSA SCREENING Reviewed date:10/26/2024 01:55:26 PM Interpretation: Performing Lab: Notes/Report: [facility] , Prostate Specific Antigen Scrn <0.13 <=4.00 ng/mL Performing Lab: see note ML - [facility] LB T4 Reviewed date:10/26/2024 01:55:26 PM Interpretation: Performing Lab: Notes/Report: [facility] , T4 Thyroxine 9.40 4.50-12.10 ug/dL Performing Lab: see note ML - [facility] LB TSH Reviewed date:10/26/2024 01:55:26 PM Interpretation: Performing Lab: Notes/Report: [facility] , Thyroid Stimulating Hormone 1.131 0.358-3.740 uIU/mL Performing Lab: see note ML - [facility] LB US right upper quadrant Reviewed date:11/04/2024 07:32:22 PM Interpretation: Performing Lab: Notes/Report: Source Facility: [facility] [place]-[address] [place] [address] [place] [address] Ultrasound Report Signed Patient: RONNIE OCONNOR MR#: [id number] : 1950 Acct:[id number] Age/Sex: 74 / M ADM Date: 11/04/24 Loc: US Attending Dr: Merline Fuller M.D. Ordering Physician: Merline Fuller M.D. Date of Service: 11/04/24 Procedure(s): US right upper quadrant Accession Number(s): [id number] cc: Merline Fuller M.D. [address] [id number] Patient Name: RONNIE OCONNOR MRN: [id number] date: 1950 Sex: M Assigned Patient Location: US Current Patient Location: US Accession/Order Number: [id number] Exam Date: 11/04/2024 07:00 Report Date: 11/04/2024 08:29 At the request of: MERLINE FULLER Procedure: US right upper quadrant EXAM: US right upper quadrant HISTORY: Jaundice R17 COMPARISON: None. TECHNIQUE: Grayscale, color and Doppler FINDINGS: The liver is normal in size, contour and echotexture measuring 14.8 cm in length. No solid mass. Hepatopedal flow in the main portal vein with a velocity of 29 cm/s. The gallbladder is normal in size. The wall measures 2.8 mm. The common bile duct is dilated measuring up to 11.1 mm however no focal obstruction was observed. Negative sonographic German sign. The pancreas is poorly visualized, the visualized body is normal The right kidney is normal measuring 11.0 x 5.9 x 5.8 cm. Area of anechoic echogenicity measuring 1.9 cm, simple cortical cyst No ascites US/US right upper quadrant IMPRESSION: Dilated common bile duct of unknown etiology. No obstruction is observed Electronically authenticated by: BARBRA MOSHER Date: 11/04/2024 08:29 Dictated By: Barbra Mosher M.D. Signed By: 11/04/24831 DD/ 8 TD/TT: Manufacturing Technologist: [place] [address] Ultrasound Report Signed Patient: GREGORIO OCONNOR MR#: [id number] : 1950 Acct:[id number] Age/Sex: 74 / M ADM Date: 11/04/24 Loc: US Attending Dr: Jyotsna Fuller M.D. Ordering Physician: Merline Fuller M.D. Date of Service: 11/04/24 Procedure(s): US rig ht upper quadrant Accession Number(s): [id number] cc: Merline Fuller M.D. [place] [address] Patient Name: RONNIE OCONNOR MRN: [id number] date: 1950 Sex: M Assigned Patient Location: US Current Patient Location: Accession/Order Number: [id number] Exam Date: 11/04/2024 07:00 Report Date: 11/04/2024 08:29 At the request of: MERLINE FULLER Procedure: US right upper quadrant EXAM: US right upper quadrant HISTORY: Jaundice R17 COMPARISON: None. TECHNIQUE: Grayscale , color and Doppler FINDINGS: The liver is normal in size, contour and echotexture measuring 14.8 cm in length. No solid mas s. Hepatopedal flow in the main portal vein with a velocity of 29 cm/s. The gallbladder is normal in size. The wall measures 2.8 mm. The common bile duct is dilated measuring up to 11.1 mm however no focal obstruction was observed. Negative sonographic German sign. The pancreas is poor ly visualized, the visualized body is normal The right kidney is normal measuring 11.0 x 5.9 x 5.8 cm. Area of anechoic echogenicity measuri ng 1.9 cm, simple cortical cyst No ascites US/US right upper quadrant IMPRESSION: Dilated common bile duct of unknown etiology. No obstruction is observed Electronically authenticated by: BARBRA MOSHER Date: 11/04/2024 08:29 Dictated By: Barbra Mosher M.D. Signed By: 11/04/24 0832 DD/ TD/TT: Manufacturing Technologist: MR philly ledezma Reviewed date:11/11/2024 03:54:50 PM Interpretation: Performing Lab: Notes/Report: Source Facility: [place] [address] [place] [address] Magnetic Resonance Report Signed Patient: RONNIE OCONNOR MR#: [id number] : 1950 Acct:[id number] Age/Sex: 74 / M ADM Date: 11/11/24 Loc: MRI Attending Dr: Merline Fuller M.D. Ordering Physician: Merline Fuller M.D. Date of Service: 11/11/24 Procedure(s): MR abdomen wo con Accession Number(s): [id number] cc: Merline Fuller M.D. [address] [address] Patient Name: RONNIE OCONNOR MRN: [facility]:[id number] date: 1950 Sex: M Assigned Patient Location: MRI Current Patient Location: MRI Accession/Order Number: [id number] Exam Date: 11/11/2024 08:00 Report Date: 11/11/2024 12:59 At the request of: MERLINE FULLER Procedure: MR abdomen wo con EXAMINATION: MR abdomen wo con HISTORY: Dilated Bile Duct COMPARISON: No relevant comparison available. TECHNIQUE: A comprehensive MRI examination of the abdomen was performed to optimize visualization of suspected pathology. Images were obtained with and/or without intravenous Dotarem contrast as indicated by exam type. FINDINGS: LIVER: No enlargement, atrophy, abnormal signal, or significant focal lesion. BILIARY: 10 x 5 x 5 mm stone within distal aspect of the abnormally dilated (10 mm) common bile duct. No additional stones within the gallbladder. No wall thickening or free fluid. PANCREAS: No lesion, fluid collection, ductal dilatation, or atrophy. SPLEEN: No enlargement or focal lesion. KIDNEYS: Small benign-appearing cysts arising from inferior pole of right kidney. ADRENALS: No mass or enlargement. AORTA/VASCULAR: No aneurysm or dissection. RETROPERITONEUM: No mass or adenopathy. BOWEL/MESENTERY: No visible mass, obstruction, or bowel wall thickening. ABDOMINAL WALL: No mass or hernia. BONES: No bony lesion or fracture. LUNG BASES: No visible pleural disease. Lung bases not well assessed with MRI. OTHER: Negative. MR/MR abdomen wo con IMPRESSION: 1. Abnormally dilated common bile duct due to a nonobstructing 10 x 5 x 5 mm stone within the distal common duct. 2. No additional gallstones or evidence of cholecystitis. Electronically authenticated by: LANCE FREEDMAN Date: 11/11/2024 12:59 Dictated By: Lance Freedman M.D. Signed By: 11/11/24 1306 DD/ 1259 TD/TT: Manufacturing Technologist: [place] [address] Magnetic Resonance Report Signed Patient: GREGORIO OCONNOR MR#: [id number] : 1950 Acct:[id number] Age/Sex: 74 / M ADM Date: 11/11/24 Loc: MRI Attending Dr: Jyotsna Fuller M.D. Ordering Physician: Merline Fuller M.D. Date of Service: 11/11/24 Procedure(s): MR abdomen wo con Accession Number(s): [id number] cc: Merline Fuller M.D. [place] [id number] Patient Name: RONNIE OCONNOR MRN: [id number] date: 1950 Sex: M Assigned Patient Location: MRI Current Patient Location: MRI Accession/Order Number: [id number] Exam Date: 11/11/2024 08:00 Report Date: 11/11/2024 12:59 At the request of: MERLINE FULLER Procedure: MR abdome n wo con EXAMINATION: MR abdomen wo con HISTORY: Dilated Gerardo e Duct COMPARISON: No relevant comparison available. TECHNIQUE: A comprehensive MRI examination of the abdomen was performed to optimize visualizati on of suspected pathology. Images were obtained with and/or without intravenous Dotarem contrast as indicated by exam type. FINDINGS: LIVER: No enlargemen t, atrophy, abnormal signal, or significant focal lesion. BILIARY: 10 x 5 x 5 mm stone within distal aspect of the abnormally dilated (10 mm) common bile duct . No additional stones within the gallbladder. No wall thickening or free fluid. PANCREAS: No lesion, fluid collection, ductal dilatation, or atrophy. SPLEEN: No enlargeme nt or focal lesion. KIDNEYS: Small benign-appearing cysts arising from inferior pole of right kidney. ADRENALS: No mass or enlargement. AORTA/VASCULAR: No aneurysm or dissection. RETROPERITONEUM: No mass or adenopathy. BOWEL/MESENTERY: No visible mass, obstruction, or bowel wall thickening. ABDOMINAL WALL: No mass or hernia. BONES: No bony lesio n or fracture. LUNG BASES: No visib le pleural disease. Lung bases not well assessed with MRI. OTHER: Negative. MR/MR abdomen wo con IMPRESSION: 1. Abnormally dilate d common bile duct due to a nonobstructing 10 x 5 x 5 mm stone within the distal common duct. 2. No additional gallstones or evidence of cholecystitis. Electronically authenticated by: LANCE FREEDMAN Date: 11/11/2024 12:59 Dictated By: Lance Freedman M.D. Signed By: 11/11/24 1302 DD/ 1259 TD/TT: Manufacturing Technologist: Prothrombin Time INR Reviewed date:11/12/2024 06:19:44 PM Interpretation: Performing Lab: Notes/Report: [facility] [place] , Prothrombin Time 10.3 9.0-11.6 sec INR 0.97 2.5-3.5 FOR PROSTHETIC HEART VALVE REPLACEMENT 2.0-3.0 CONDITIONS NOT LISTED BELOW DESIRED INR: 2.5-3.5 RECURRENT THROMBOSIS Performing Lab: see note ML - [facility] US right upper quadrant Reviewed date:02/15/2025 07:32:44 PM Interpretation: Performing Lab: Notes/Report: Source Facility: [place] [address] Ultrasound Report Signed Patient: RONNIE OCONNOR MR#: [id number] : 1950 Acct:[id number] Age/Sex: 75 / M ADM Date: 02/15/25 Loc: Attending Dr: Aung Moe M.D. Ordering Physician: Aung Moe M.D. Date of Service: 02/15/25 Procedure(s): US right upper quadrant Accession Number(s): [id number] cc: Merline Fuller M.D.; Aung Moe M.D. [place] [address] Patient Name: RONNIE OCONNOR MRN: [id number] date: 1950 Sex: M Assigned Patient Location: US Current Patient Location: US Accession/Order Number: [id number] Exam Date: 02/15/2025 13:39 Report Date: 02/15/2025 13:42 At the request of: AUNG MOE MD Procedure: US right upper quadrant LIMITED ABDOMINAL ULTRASOUND: CLINICAL HISTORY: CALCULUS O BILE DUCT WITHOUT CHOLANGITIS K80.51 COMPARISON: Ultrasound 11/04/2024 TECHNIQUE: Grayscale and color Doppler images of the right upper quadrant organs were obtained. FINDINGS: Pancreas: Visualized portions appear unremarkable. Liver: Unremarkable. Hepatopedal flow seen within the portal vein. Presumed gas is seen within the salud hepatis. Gallbladder: Gallbladder sludge. Adenomyomatosis. CBD: 10 mm RT KIDNEY: No Hydronephrosis small cyst. US/US right upper quadrant IMPRESSION: GALLBLADDER SLUDGE WITH ADENOMYOMATOSIS. NO ULTRASOUND EVIDENCE OF ACUTE CHOLECYSTITIS. PRESUMED GAS IS SEEN WITHIN THE SALUD HEPATIS LIKELY BILIARY GIVEN THE HISTORY. THIS CAN BE CONFIRMED BY CT.. Impression dictated by: Michelet Duffy Jr., D.O. 02/15/2025 1:42 PM Dictation Location: [place] [address] Electronically authenticated by: [id number] Y Date: 02/15/2025 13:42 Dictated By: Michelet Duffy M.D. Signed By: 02/15/25 1344 DD/ 1342 TD/TT: Manufacturing Technologist: [place] [address] Ultrasound Report Signed Patient: GREGORIO OCONNOR MR#: [id number] : 1950 Acct:[id number] Age/Sex: 75 / M ADM Date: 02/15/25 Loc: US Attending Dr: Haleigh Moe M.D. Ordering Physician: Aung Moe M.D. Date of Service: 02/15/25 Procedure(s): US rig ht upper quadrant Accession Number(s): [id number] cc: Merline Fuller M.D. ; Aung Moe M.D. [address] [address] Patient Name: RONNIE OCONNOR MRN: [id number] date: 1950 Sex: M Assigned Patient Location: US Current Patient Location: US Accession/Order Number: [id number] Exam Date: 02/15/2025 13:39 Report Date: 02/15/2025 13:42 At the request of: AUNG OME MD Procedure: US right upper quadrant LIMITED ABDOMINAL ULTRASOUND: CLINICAL HISTORY: CALCULUS O BILE DUCT WITHOUT CHOLANGITIS K80.51 COMPARISON: Ultrasou nd 11/04/2024 TECHNIQUE: Grayscale and color Doppler images of the right upper quadrant organs were obtained. FINDINGS: Pancreas: Visualized portions appear unremarkable. Liver: Unremarkable. Hepatopedal flow seen within the portal vein. Presumed gas is seen within t he salud hepatis. Gallbladder: Gallbladder sludge. Adenomyomatosis. CBD: 10 mm RT KIDNEY: No Hydronephrosis small cyst. US/US right upper quadrant IMPRESSION: GALLBLADDER SLUDGE WITH ADENOMYOMATOSIS. NO ULTRASOUND EVIDENCE OF ACUTE CHOLECYSTITIS. PRESUMED GAS IS SEEN WITHIN THE SALUD HEPATIS LIKELY BILIARY GIVEN THE HISTORY. THIS CAN BE CONFIRMED BY CT.. Impression dictated by: Michelet Duffy Jr., D.O. 02/15/2025 1:42 PM Dictation Location: [place] [address] Electronically authenticated by: [id number] Y Date: 02/15/2025 13:42 Dictated By: Michelet Duffy M.D. Signed By: 02/15/25 1344 DD/ 1342 TD/TT: Manufacturing Technologist: CBC AUTO DIFF Reviewed date:11/01/2024 10:37:17 AM Interpretation: Performing Lab: Notes/Report: [facility] [place] , White Blood Count 7.4 4.0-11.0 10 3/uL Red Blood Count 4.38 4.70-6.10 10 6/uL Hemoglobin 14.0 14.0-18.0 g/dL Hematocrit 44.6 42.0-54.0 % Mean Corpuscular Volume 101.8 80.0-94.0 fL Mean Corpuscular Hemoglobin 32.0 25.9-34.0 pg Mean Corpuscular HGB Conc 31.4 29.9-35.2 g/dL Red Cell Distribution Width 13.5 11.0-15.0 % Platelet Count 529 150-450 10 3/uL Mean Platelet Volume 9.9 9.5-13.5 fL Neutrophils Percent Auto 49.6 43.0-75.0 % Lymphocytes Percent Auto 31.6 20.5-60.0 % Monocytes Percent Auto 12.7 1.7-12.0 % Eosinophils Percent Auto 4.2 0.9-7.0 % Basophils Percent Auto 1.1 0.2-2.0 % Immature Granulocytes Pct Auto 0.8 0.0-0.5 % Neutrophils Absolute Auto 3.7 1.4-6.5 10 3/uL Lymphocytes Absolute Auto 2.3 1.2-3.8 10 3/uL Monocytes Absolute Auto 0.9 0.3-0.8 10 3/uL Eosinophils Absolute Auto 0.3 0.0-0.7 10 3/uL Basophils Absolute Auto 0.1 0.0-0.1 10 3/uL Immature Granulocytes Abs Auto 0.06 0.00-0.03 10 3/uL Performing Lab: see note - [facility] LB Box Test Reviewed date:11/02/2024 08:15:48 PM Interpretation: Performing Lab: Notes/Report: URINE CULTURE [facility] , BOX Test Sent Out URINE CULTURE BOX Test Reference Lab [facility] BOX Test Date Sent 10/26/24 BOX Test Result SEE SCANNED REPORT Performing Lab: see note [facility] UA RANDOM W or MICROSCOPIC Reviewed date:10/26/2024 01:55:26 PM Interpretation: Performing Lab: Notes/Report: [facility] , Color Urine DK. YELLOW YELLOW Clarity Urine CLEAR CLEAR Specific Sundown Urine 1.025 1.005-1.025 pH Urine 5.5 5.0-9.0 Protein Urine TRACE NEG/TRACE mg/dL Glucose Urine UA NEGATIVE NEGATIVE mg/dL Bilirubin Urine SMALL NEGATIVE Ketones Urine NEGATIVE NEGATIVE mg/dL Blood Urine NEGATIVE NEGATIVE Nitrite Urine NEGATIVE NEGATIVE Urobilinogen Urine 0.2 0.2-1.0 EU/dL Leukocyte Esterase Urine NEGATIVE NEGATIVE WBC Urine 0-2 NONE SEEN #/HPF RBC Urine 0-2 0-2 #/HPF Bacteria Urine SMALL NONE SEEN #/HPF Mucus Urine MODERATE NONE SEEN Squamous Epithelial Cell Urine NONE SEEN NONE/RARE #/LPF Crystals Seen? None Seen None Seen #/HPF Cast Seen? SEEN NONE SEEN #/LPF Hyaline Casts Urine MODERATE Fine Granular Casts Urine FEW Performing Lab: see note [facility] LB CBC AUTO DIFF Reviewed date:10/26/2024 01:55:26 PM Interpretation: Performing Lab: Notes/Report: [facility] [place] , White Blood Count 11.5 4.0-11.0 10 3/uL Red Blood Count 4.43 4.70-6.10 10 6/uL Hemoglobin 14.0 14.0-18.0 g/dL Hematocrit 45.4 42.0-54.0 % Mean Corpuscular Volume 102.5 80.0-94.0 fL Mean Corpuscular Hemoglobin 31.6 25.9-34.0 pg Mean Corpuscular HGB Conc 30.8 29.9-35.2 g/dL Red Cell Distribution Width 13.8 11.0-15.0 % Platelet Count 603 150-450 10 3/uL Mean Platelet Volume 10.0 9.5-13.5 fL Neutrophils Percent Auto 70.3 43.0-75.0 % Lymphocytes Percent Auto 17.7 20.5-60.0 % Monocytes Percent Auto 7.7 1.7-12.0 % Eosinophils Percent Auto 1.7 0.9-7.0 % Basophils Percent Auto 0.7 0.2-2.0 % Immature Granulocytes Pct Auto 1.9 0.0-0.5 % Neutrophils Absolute Auto 8.1 1.4-6.5 10 3/uL Lymphocytes Absolute Auto 2.0 1.2-3.8 10 3/uL Monocytes Absolute Auto 0.9 0.3-0.8 10 3/uL Eosinophils Absolute Auto 0.2 0.0-0.7 10 3/uL Basophils Absolute Auto 0.1 0.0-0.1 10 3/uL Immature Granulocytes Abs Auto 0.22 0.00-0.03 10 3/uL Performing Lab: see note ML - The [facility] LB PSA Total+% Free Reviewed date:05/17/2024 11:54:34 AM Interpretation: Performing Lab: Notes/Report: [facility] , Prostate Specific Ag <0.1 0.0-4.0 ng/mL or greater. Values obtained with different assay methods or radical prostatectomy. The AUA defines biochemical interpreted as absolute evidence of the presence or absence According to the [place] [employer], Serum PSA followed by a subsequent confirmatory PSA value 0.2 ng/mL kits cannot be used interchangeably. Results cannot be Anand ECLIA methodology. recurrence as an initial PSA value 0.2 ng/mL or greater of malignant disease. should decrease and remain at undetectable levels after Verified by repeat analysis PSA, Free <0.02 N/A ng/mL Anand ECLIA methodology. % Free PSA TNP . % 15.01-20.00% 17% 23% percent free PSA for any other population The table below lists the probability of prostate cancer for Performed at: [facility] 0.00-10.00% 56% 55% 4 and 10 ng/mL, by patient age (Kyung et al, CLEMENCIA 1997, >25.00% 5% 9% 10.01-15.00% 24% 35% recommendations regarding the use of obtained for component test. % Free PSA 50-64 yr 65-75 yr Middle [employer] Counselor: Thomas Navas PhD, Phone: [phone] 20.01-25.00% 10% 20% men with non-suspicious TERI results and total PSA between of men. Please note: Alondra did not make specific Unable to calculate result since non-numeric result [address] [place], [place] [id number] [id number]). Performing Lab: see [facility] - [facility] TSH Reviewed date:05/14/2024 09:04:41 PM Interpretation: Performing Lab: Notes/Report: [facility] [place] , Thyroid Stimulating Hormone 1.505 0.358-3.740 uIU/mL Performing Lab: see note - [facility] LB PROF 14(COMP METB) Reviewed date:05/14/2024 09:04:41 PM Interpretation: Performing Lab: Notes/Report: [facility] [place] , Sodium 142 136-145 mmol/L Potassium 4.4 3.5-5.1 mmol/L Chloride 105 98-107 mmol/L Carbon Dioxide 28.4 21.0-32.0 mmol/L Anion Gap 13.0 Glucose 101 74-106 mg/dL Blood Urea Nitrogen 20.0 7.0-18.0 mg/dL Creatinine 0.98 0.70-1.30 mg/dL Estimated GFR ( Carlie >60 >=60 Estimated GFR (Non- Kelsy >60 >=60 BUN Creatinine Ratio 20.4 Calcium 9.1 8.5-10.1 mg/dL Bilirubin Total 0.7 0.2-1.0 mg/dL Aspartate Amino Transferase 16 15-37 U/L Alanine Aminotransferase 25 16-63 U/L Alkaline Phosphatase 76 46-116 U/L Total Protein 8.1 6.4-8.2 g/dL Albumin Level 3.7 3.4-5.0 g/dL Globulin 4.4 Albumin Globulin Ratio 0.8 Performing Lab: see note ML - [facility] LB FREE T4 Reviewed date:05/14/2024 09:04:41 PM Interpretation: Performing Lab: Notes/Report: [facility] [place] , Free T4 0.89 0.76-1.46 ng/dL Performing Lab: see note ML - [facility] FREE T3 Reviewed date:05/14/2024 09:04:41 PM Interpretation: Performing Lab: Notes/Report: [facility] [place] , Free T3 2.92 2.18-3.98 pg/mL Performing Lab: see note ML - [facility] LB LIPID PROFILE Reviewed date:05/14/2024 09:04:41 PM Interpretation: Performing Lab: Notes/Report: [facility] , Triglycerides 111 <=150 mg/dL Cholesterol 146 <=200 mg/dL HDL Cholesterol 58 40-60 mg/dL > or =60 mg/dl - LOW CARDIOVASCULAR RISK <40 mg/dl - HIGH CARDIOVASCULAR RISK LDL Cholesterol Calculated 65.8 160-189 mg/dl HIGH <100 mg/dl OPTIMAL >190 mg/dl VERY HIGH 100-129 mg/dl NEAR OR ABOVE OPTIMAL 130-159 mg/dl BORDERLINE HIGH VLDL CHOLESTEROL 22.2 Chol HDL Ratio 2.5 >11.0 HIGH RISK 7.1 - 11.0 MODERATE RISK 4.4 - 7.1 AVERAGE RISK 3.3 - 4.4 LOW RISK Performing Lab: see note ML - [facility] LB GLYCOHEMOGLOBIN A1C Reviewed date:05/14/2024 09:04:41 PM Interpretation: Performing Lab: Notes/Report: [facility] , Glycohemoglobin A1C 5.4 4.5-6.2 % > 7.0 ADA THERAPEUTIC TARGET < 7.0 ACTION SUGGESTED ADA RECOMMENDED LIMIT 4.0 - 6.0 Estimated Average Glucose 108 Performing Lab: see note ML - [facility] CBC AUTO DIFF Reviewed date:05/14/2024 09:04:41 PM Interpretation: Performing Lab: Notes/Report: [facility] [place] , White Blood Count 8.1 4.0-11.0 10 3/uL Red Blood Count 4.42 4.70-6.10 10 6/uL Hemoglobin 14.6 14.0-18.0 g/dL Hematocrit 44.6 42.0-54.0 % Mean Corpuscular Volume 100.9 80.0-94.0 fL Mean Corpuscular Hemoglobin 33.0 25.9-34.0 pg Mean Corpuscular HGB Conc 32.7 29.9-35.2 g/dL Red Cell Distribution Width 13.2 11.0-15.0 % Platelet Count 298 150-450 10 3/uL Mean Platelet Volume 9.8 9.5-13.5 fL Neutrophils Percent Auto 49.8 43.0-75.0 % Lymphocytes Percent Auto 31.0 20.5-60.0 % Monocytes Percent Auto 12.8 1.7-12.0 % Eosinophils Percent Auto 5.3 0.9-7.0 % Basophils Percent Auto 0.9 0.2-2.0 % Immature Granulocytes Pct Auto 0.2 0.0-0.5 % Neutrophils Absolute Auto 4.1 1.4-6.5 10 3/uL Lymphocytes Absolute Auto 2.5 1.2-3.8 10 3/uL Monocytes Absolute Auto 1.0 0.3-0.8 10 3/uL Eosinophils Absolute Auto 0.4 0.0-0.7 10 3/uL Basophils Absolute Auto 0.1 0.0-0.1 10 3/uL Immature Granulocytes Abs Auto 0.02 0.00-0.03 10 3/uL Performing Lab: see note ML - [facility] LB LIPASE Reviewed date:11/12/2024 06:19:44 PM Interpretation: Performing Lab: Notes/Report: [facility] [place] , Lipase 158.0 16.0-77.0 U/L Performing Lab: see note ML - [facility] LB CBC AUTO DIFF Reviewed date:11/12/2024 06:19:44 PM Interpretation: Performing Lab: Notes/Report: [facility] [place] , White Blood Count 8.2 4.0-11.0 10 3/uL Red Blood Count 4.11 4.70-6.10 10 6/uL Hemoglobin 12.9 14.0-18.0 g/dL Hematocrit 41.6 42.0-54.0 % Mean Corpuscular Volume 101.2 80.0-94.0 fL Mean Corpuscular Hemoglobin 31.4 25.9-34.0 pg Mean Corpuscular HGB Conc 31.0 29.9-35.2 g/dL Red Cell Distribution Width 13.6 11.0-15.0 % Platelet Count 384 150-450 10 3/uL Mean Platelet Volume 10.3 9.5-13.5 fL Neutrophils Percent Auto 54.2 43.0-75.0 % Lymphocytes Percent Auto 29.0 20.5-60.0 % Monocytes Percent Auto 12.6 1.7-12.0 % Eosinophils Percent Auto 2.9 0.9-7.0 % Basophils Percent Auto 0.6 0.2-2.0 % Immature Granulocytes Pct Auto 0.7 0.0-0.5 % Neutrophils Absolute Auto 4.4 1.4-6.5 10 3/uL Lymphocytes Absolute Auto 2.4 1.2-3.8 10 3/uL Monocytes Absolute Auto 1.0 0.3-0.8 10 3/uL Eosinophils Absolute Auto 0.2 0.0-0.7 10 3/uL Basophils Absolute Auto 0.1 0.0-0.1 10 3/uL Immature Granulocytes Abs Auto 0.06 0.00-0.03 10 3/uL Performing Lab: see note ML - [facility] LB AMYLASE Reviewed date:11/12/2024 06:19:44 PM Interpretation: Performing Lab: Notes/Report: [facility] [place] , Amylase 76 25-115 U/L Performing Lab: see note - [facility] LB PROF 14(COMP METB) Reviewed date:11/01/2024 10:37:17 AM Interpretation: Performing Lab: Notes/Report: [facility] [place] , Sodium 139 136-145 mmol/L Potassium 4.6 3.5-5.1 mmol/L Chloride 103 98-107 mmol/L Carbon Dioxide 25.8 21.0-32.0 mmol/L Anion Gap 14.8 Glucose 109 74-106 mg/dL Blood Urea Nitrogen 21.0 7.0-18.0 mg/dL Creatinine 1.29 0.70-1.30 mg/dL Estimated GFR ( Carlie >60 >=60 mL/min/1.73m 2 Estimated GFR (Non- Kelsy 55 >=60 mL/min/1.73m 2 BUN Creatinine Ratio 16.3 Calcium 9.9 8.5-10.1 mg/dL Bilirubin Total 1.1 0.2-1.0 mg/dL Aspartate Amino Transferase 215 15-37 U/L Alanine Aminotransferase 322 16-63 U/L Alkaline Phosphatase 942 46-116 U/L Total Protein 8.8 6.4-8.2 g/dL Albumin Level 3.4 3.4-5.0 g/dL Globulin 5.4 Albumin Globulin Ratio 0.6 Performing Lab: see note ML - [facility] LB Acute Hepatitis Reviewed date:11/01/2024 10:37:17 AM Interpretation: Performing Lab: Notes/Report: [facility] , Hep A Ab, IgM Negative Negative current HAV infection. A negative anti-HAV IgM result suggests no recent or HBsAg Screen Negative Negative Hep B Core Ab, IgM Negative Negative HCV Ab Non Reactive Non Reactive Interpretation: Comment . Middle School Counselor: Thomas Navas PhD, Phone: [phone] individual), or other evidence exists to indicate HCV infection. Not infected with HCV unless early or acute infection is Performed at: - [facility] [place] suspected (which may be delayed in an immunocompromised [address] [place] [phone] Performing Lab: see note - [facility] LB Reason For Referral Diagnosis 1 Dilated bile duct (K 83.8) Referral Organization [facility] Referring Provider First Name Solomon Referring Provider Last Name [facility] Referring Provider [facility] Referred Provider Aung Moe Referred Provider Specialty General Surg lauren Referral Priority Routine Diagnosis 1 Common bile duct (CB D) obstruction (K83.1) Referral Organization [facility] Referring Provider First Name Solomon Referring Provider Last Name [facility] Referring Provider [facility] Referred Provider Specialty Gastroentero logy Referral Priority Routine Medications Medication SIG (Take, Route, Frequency, Duration) Notes Start Date End Date Status Lisinopril 40 MG TAKE 1 TABLET DAILY for 90 Active Atorvastatin Calcium 40 MG TAKE 1 TABLET ONCE DAILY for 90 days Active Diclofenac Sodium 75 MG 1 tablet as need ed Orally Twice a day for 30 03/27/2023 Active amLODIPine Besylate 10 MG TAKE 1 TABLET ONCE DAILY for 90 days Active Zolpidem Tartrate 10 MG 1 tablet at bedt cristino as needed Orally Once a day for 30 days 01/19/2025 Active Atenolol 50 MG TAKE 1 TABLET ONCE D AILY for 90 days Active Pantoprazole Sodium 40 MG TAKE 1 TABLET BY MOUTH EVERY DAY IN THE EVENING for 30 Active Social History Tobacco Use: Social History Observation Description Date Details (start date - stop date) Former Smoker 10/21/1968 - 10/21/1979 Tobacco Use/Smoking Question Answer Notes Patient is a former smoker When did you start smoking? 10/21/1968 When did you stop smoking? 10/21/1979 How long has it been since you last smoked? > 10 years Alcohol Screen (Audit-C) Question Answer Notes Did you have a drink contain ing alcohol in the past year? Yes How often did you have 6 or more drinks on one occasion in the past year? Never (0 point) How many drinks did you have on a typical day when you were drinking in the past year? 1 or 2 drinks (0 point) How often did you have a dri nk containing alcohol in the past year? Daily or almost daily (4 points) Points 4 Interpretation Positive AUDIT-C (Standard) Question Answer Notes Did you have a drink containing alcohol in the p ast year? No Points 0 Interpretation Negative Problems Problem Type SNOMED Code ICD Code Onset Dates Problem Status W/U Status Risk Notes Problem 72133775 Essential (primary) hypertension (I10) Active confirmed Problem History of malignant neoplasm of prostate (074659436) Personal history of malignant neoplasm of prostate (Z85.46) Active confirmed Problem 14370987 Hyperlipidemia, unspecified (E78.5) Active confirmed Problem 5496874708481885 Unilateral primary osteoarthritis, left knee (M17.12) Active confirmed Problem Strain of muscle and/or tendon of lower leg (822183981) Strain of other muscle(s) and tendon(s) of posterior muscle group at lower leg level, left leg, initial encounter (S86.112A) Active confirmed Problem Insomnia (932266363) Insomnia (G47.00) Active confirmed Problem Acute sinusitis (99668123) Acute sinusitis (J01.90) Active confirmed Problem Gallstone (608426198) Gallstone (K80.20) Active confirmed Problem Jaundice (86564090) Jaundice (R17) Active confi rmed Problem Impotence (N52.9) Active confirmed Problem 286774921 Insomnia, unspecified type (G47.00) Active confirmed Problem Cholangiectasis (356502594) Dilated bile duct (K83.8) Active confirmed Problem History of radical retropubic prostatectomy (948524072) 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) Active confirmed Problem Adult health examination (552850100) Encounter for routine adult medical examination (Z00.00) Active confirmed Problem Obstruction of bile duct (86300385) Common bile duct (CBD) obstruction (K83.1) Active confirmed Problem Cardiac arrhythmia (624490060) Bigeminy (I49.8) Active confirmed Vital Signs Blood pressure diastolic 82 mm Hg 11/12/2024 Height 73 in 11/12/2024 Blood pressure systolic 140 mm Hg 11/12/2024 Weight 206.2 lbs 11/12/2024 BMI 27.2 kg/m2 11/12/2024 Encounters Encounter Location Date Provider Diagnosis [facility] [address] [place] [address] 02/15/2025 Solomon Fuller [facility] [address] [place] [address] 11/11/2024 Solomon Medelliny Dilated bile duct K8 3.[address] [place] [address] 11/12/2024 Solomon Hoy Common bile duct (CB D) obstruction K83.1 [facility] [address] [place] [address] 11/15/2024 Solomon Fuller [facility] [address] [place] [address] 11/19/2024 Solomon Medelliny [facility] [address] [place] [address] 11/20/2024 Solomon Fuller Personal history of malignant neoplasm of prostate Z85.46 [facility] [address] [place] [address] 12/03/2024 Solomon Fuller Insomnia, unspecifie d type G47.00 [facility] [address] [place] [address] 08/21/2024 Leandra Haas Personal history of malignant neoplasm of prostate Z85.46 [facility] [address] [place] [address] 08/21/2024 Solomon Fuller Personal history of malignant neoplasm of prostate Z85.46 [facility] [address] [place] [address] 10/26/2024 Solomon Hoy Personal history of malignant neoplasm of prostate Z85.46 and Essential (primary) hypertension I10 [facility] [address] [place] [address] 11/01/2024 Solomon Hoy Jaundice R17 [address] [address] 11/04/2024 Solomon Hoy [facility] [address] [place] [address] 11/04/2024 Solomon Hoy Dilated bile duct K8 3.8 and Jaundice R17 [address] [address] 05/11/2024 Solomon Hoy Essential (primary) hypertension I10 ; Wellness examination Z01.89 ; Hyperlipidemia, unspecified E78.5 and H/O radical retropubic prostatectomy Z90.79 [address] [place] [address] 05/14/2024 Solomon Hoy [facility] [address] [place] [address] 05/15/2024 Solomon Medelliny Personal history of malignant neoplasm of prostate Z85.46 ; Hyperlipidemia, unspecified E78.5 ; Essential (primary) hypertension I10 ; Unilateral primary osteoarthritis, left knee M17.12 and Insomnia G47.00 [address] [place] [address] 11/12/2024 Solomon Hoy Gallstone K80.[address] [address] 10/26/2024 Solomon Hoy Jaundice R17 Assessments Encounter Date Diagnosis (ICD Code) Assessment Notes Treatment Notes Treatment Clinical Notes Section Notes 10/26/2024 Jaundice (ICD-10 - R17) 11/12/2024 Gallstone (ICD-10 - K80.20) 05/11/2024 Essential (primary) hypertension (ICD-10 - I10) 05/11/2024 Wellness examination (ICD-10 - Z01.89) 05/15/2024 Personal history of malignant neoplasm of prostate (ICD-10 - Z85.46) PSA <.1 05/15/2024 Hyperlipidemia, unspecified (ICD-10 - E78.5) 08/21/2024 Personal history of malignant neoplasm of prostate (ICD-10 - Z85.46) 08/21/2024 Personal history of malignant neoplasm of prostate (ICD-10 - Z85.46) 10/26/2024 Personal history of malignant neoplasm of prostate (ICD-10 - Z85.46) 10/26/2024 Essential (primary) hypertension (ICD-10 - I10) 11/01/2024 Jaundice (ICD-10 - R17) 11/04/2024 Dilated bile duct (ICD-10 - K83.8) 11/04/2024 Jaundice (ICD-10 - R17) 11/11/2024 Dilated bile duct (ICD-10 - K83.8) 11/12/2024 Common bile duct (CBD) obstruction (ICD-10 - K83.1) 11/20/2024 Personal history of malignant neoplasm of prostate (ICD-10 - Z85.46) 12/03/2024 Insomnia, unspecified type (ICD-10 - G47.00) 05/15/2024 Essential (primary) hypertension (ICD-10 - I10) BP great control 05/11/2024 Hyperlipidemia, unspecified (ICD-10 - E78.5) 05/11/2024 H/O radical retropubic prostatectomy (ICD-10 - Z90.79) 05/15/2024 Unilateral primary osteoarthritis, left knee (ICD-10 - M17.12) KNee pain not bad - not takingf diclofdenac refulalry 05/15/2024 Insomnia (ICD-10 - G47.00) inc ambien Plan Of Treatment Pending Test Test Name Order Date CMP (COMPLETE METABOLIC PANEL) 5 CMP (COMPLETE METABOLIC PANEL) 3 CMP (COMPLETE METABOLIC PANEL) 4 LIPID PANEL (CHOL/TRIG/HDL/LDL) 02/26/20 CBC WITH DIFF 02/25/2023 CBC WITH DIFF 10/26/2024 PSA, PROSTATE-SPECIFIC ANTIGEN 3 US Gallbladder 11/01/2024 T3 FREE, T4 FREE and TSH 05/11/2024 Urinalysis Microscopic 10/26/2024 PSA-FREE AND TOTAL 05/11/2024 FECAL OCCULT BLOOD 05/11/2024 ACUTE HEPATITIS PANEL 10/26/2024 COMPREHENSIVE METABOLIC PROFILE WITH GFR 10/26/2024 MRI Abdomen w/o Contrast 11/04/2024 CBC W/AUTO DIFF 10/26/2024 PSA, TOTAL 10/26/2024 STOOL OCCULT BLOOD 02/25/2023 CULTURE URINE 10/26/2024 PROTIME 11/12/2024 THYROID PANEL (T4/TSH/FREE T3) THYROID PANEL (T4/TSH/FREE T3) 3 US Liver and Pancreas 11/01/2024 Insurance Providers Payer Name Payer Address Payer Phone Subscriber Number Group Number Insured Name Patient Relationship to Insured Coverage Start Date Coverage End Date MEDICARE RAILROAD [address] [address] [place], [place] [id number] Ronnie Oconnor Self - patient is the insured [employer] OF [address] [place] [id number] [phone] [id number] Ronnie Oconnor Self - patient is the insured Medical (General) History Medical History History ICD Code Strain of other muscle(s) an d tendon(s) of posterior muscle group at lower leg level, left leg, initial encounter S86.112A Acute sinusitis J01.90 Impotence N52.9 H/O radical retropubic prostatectomy Z90 .79 Bigeminy I49.8 Personal history of malignant neoplasm o f prostate Z85.46 Encounter for routine adult medical exam ination Z00.00 Surgical History Surgery Date(Month/Year) Rt Total knee replacement 08/2023 Left 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 05/07/2023 Cataract Repair Right eye ERCP with stent removal, Biopsy and Sphi ncterotomy 2024
--- OUTSIDE RECORDS SUMMARY | 2025-04-08 18:40 | XMS_ITS | Encounter Summary ---
Author Organization [facility] Address [address] [place] [address] Care Team Providers Care Anchor Operator Name Role Phone Mark Hawkins MD Primary Care Provider [phone] Source Comments In the event this information is protected by the Federal Confidentiality of Alcohol and Drug AbusePatient Records regulations: The Federal rules restrict any use of the information to criminally investigate or prosecute any alcohol or drug abuse patient.[facility] Encounter Details Date Type Department Care Team (Late st Contact Info) Description 05/16/2023 Get Medical Advice Orthopaedics [address] [address] David Gaxiola MD [address] [place] [address] Picture Social History Tobacco Use Types Packs/Day Years [...] is lower risk 6 04/29/2023 Data from: https://www.neighborhoodatlas.medicine.[facility]/. 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 Answer Date of Assessment Author No 05/07/2023 4:46 PM EDRadha Ho RN * Are you blind or do you have serious difficulty seeing, even when wearing glasses? Answer Date of Assessment Author No 05/07/2023 4:46 PM Radha Kaiser RN * Do you have serious difficulty walking or climbing stairs? Answer Date of Assessment Author No 05/07/2023 4:46 PM EDRadha Ho RN * Do you have difficulty dressing or bathing? Answer Date of Assessment Author No 05/07/2023 4:46 PM Radha Kaiser RN * Because of a physical, mental, or emotional condition, do you have difficulty doing errands alone such as visiting a doctor's office or shopping? Answer Date of Assessment Author No 05/07/2023 4:46 PM Rahda Kaiser RN documented as of this encounter Mental Status * Because of a physical, mental, or emotional condition, do you have serious difficulty concentrating, remembering, or making decisions? Answer Entry Date Author No 05/07/2023 4:46 PM Radha Kaiser RN documented in this encounter Plan of Treatment Not on file documented as of this encounter Visit Diagnoses Not on filedocumented in this encounter Care Teams Anchor Operator Relationship Specialty Start Date End Date Mark Hawkins MD PCP - General Family Medicine 08/01/11 documented as of this encounter
--- OUTSIDE RECORDS SUMMARY | 2025-04-08 18:40 | XMS_ITS | Encounter Summary ---
Author Organization [facility] Address [address] [place] [address] Care Team Providers Care Gas Welder Apprentice Name Role Phone Mark Hawkins MD Primary Care Provider [phone] Source Comments In the event this information is protected by the Federal Confidentiality of Alcohol and Drug AbusePatient Records regulations: The Federal rules restrict any use of the information to criminally investigate or prosecute any alcohol or drug abuse patient.[facility] Encounter Details Date Type Department Care Team (Late st Contact Info) Description 06/11/2023 Patient Msg Orthopaedics [id number] Provider, Jenny Welcome to the 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 Last address used for calculation [address] [address] 04/29/2023 Sex and Gender [...] of Assessment Author No 05/07/2023 4:46 PM EDT Radha Julio RN * Are you blind or do you have serious difficulty seeing, even when wearing glasses? Answer Date of Assessment Author No 05/07/2023 4:46 PM EDT Radha Julio RN * Do you have serious difficulty walking or climbing stairs? Answer Date of Assessment Author No 05/07/2023 4:46 PM EDT Radha Julio RN * Do you have difficulty dressing or bathing? Answer Date of Assessment Author No 05/07/2023 4:46 PM EDT Radha Julio RN * Because of a physical, mental, or emotional condition, do you have difficulty doing errands alone such as visiting a doctor's office or shopping? Answer Date of Assessment Author No 05/07/2023 4:46 PM EDRadha Ho RN documented as of this encounter Mental Status * Because of a physical, mental, or emotional condition, do you have serious difficulty concentrating, remembering, or making decisions? Answer Entry Date Author No 05/07/2023 4:46 PM EDaRdha Ho RN documented in this encounter Plan of Treatment Not on file documented as of this encounter Visit Diagnoses Not on filedocumented in this encounter Care Teams Gas Welder Apprentice Relationship Specialty Start Date End Date Mark Hawkins MD PCP - General Family Medicine 08/01/11 documented as of this encounter
--- OUTSIDE RECORDS SUMMARY | 2025-04-08 18:40 | XMS_ITS | Encounter Summary ---
Author Organization [facility] Address [address] [place] [address] Care Team Providers Care Installation Tech Name Role Phone Mark Hawkins MD Primary Care Provider [phone] Source Comments In the event this information is protected by the Federal Confidentiality of Alcohol and Drug AbusePatient Records regulations: The Federal rules restrict any use of the information to criminally investigate or prosecute any alcohol or drug abuse patient.[facility] Encounter Details Date Type Department Care Team (Late st Contact Info) Description 09/03/2023 Patient Msg Spine [place] [address] [place], [place] [phone] Provider, [facility] ACTION REQUIRED: Skin Preparation before your surgery Social History Tobacco Use Types Packs/Day Years Used Date Smoking Tobacco: Former Cigarettes 1982 Passive Smoke Exposure: Never Smokeless Tobacco: Never Alcohol Use Standard Drinks/Week Comments Yes 9.1 (1 standard drin k = 0.6 oz pure alcohol) 1 drink of vodka daily per pt 08/29/2023 [facility] Utilities Answer Date Recorded In the past 12 months has [employer], gas, oil, or water [employer] threatened to shut off services in your [...] often do you attend chur ch or caodaism services? 1 to 4 times per year 08/21/2023 Do you belong to any clubs o r organizations such as confucianism groups, unions, fraternal or athletic groups, or [...] Answer Date Recorded PHQ-2 score 0 08/21/2023 [facility] - Occupational Stress [...] place to sleep or slept in a longterm (including now)? No 08/21/2023 Area Deprivation Index Answer Date Matthieu rded National Score (1-100), lower number is lower ri sk 73 04/29/2023 State Score (1-10), lower number is lower risk 6 04/29/2023 Data from: https://www.neighborhoodatlas.medicine.[facility].edu/. Last address used for calculation [address] [address] 04/29/2023 Sex and Gender Information [...] Assessment Author No 05/07/2023 4:46 PM Radha Kaiser, JES * Are you blind or do you have serious difficulty seeing, even when wearing glasses? Answer Date of Assessment Author No 05/07/2023 4:46 PM Radha Kaiser, JES * Do you have serious difficulty walking or climbing stairs? Answer Date of Assessment Author No 05/07/2023 4:46 PM Radha Kaiser, JES * Do you have difficulty dressing or bathing? Answer Date of Assessment Author No 05/07/2023 4:46 PM EDT Radha Julio RN * Because of a physical, mental, or emotional condition, do you have difficulty doing errands alone such as visiting a doctor's office or shopping? Answer Date of Assessment Author No 05/07/2023 4:46 PM EDT Radha Julio RN documented as of this encounter Mental Status * Because of a physical, mental, or emotional condition, do you have serious difficulty concentrating, remembering, or making decisions? Answer Entry Date Author No 05/07/2023 4:46 PM EDT Radha Julio RN documented in this encounter Plan of Treatment Not on file documented as of this encounter Visit Diagnoses Not on filedocumented in this encounter Care Teams Installation Tech Relationship Specialty Start Date End Date Mark Hawkins MD PCP - General Family Medicine 08/01/11 documented as of this encounter
--- OUTSIDE RECORDS SUMMARY | 2025-04-08 18:40 | XMS_ITS | Encounter Summary ---
Author Organization [facility] Address [address] [place] [address] Care Team Providers Care Pbx Supervisor Name Role Phone Mark Hawkins MD Primary Care Provider [phone] Source Comments In the event this information is protected by the Federal Confidentiality of Alcohol and Drug AbusePatient Records regulations: The Federal rules restrict any use of the information to criminally investigate or prosecute any alcohol or drug abuse patient.[facility] Encounter Details Date Type Department Care Team (Late st Contact Info) Description 08/21/2023 Patient Msg Spine [facility] [address] [place] [address] Provider, [facility] Important Reminder for Preparing Your Skin for Surgery Social History Tobacco Use Types Packs/Day Years Used Date Smoking Tobacco: Never Passive Smoke Exposure: Never Smokeless Tobacco: Never Alcohol Use Standard Drinks/Week Comments Yes 0 (1 standard drink = 0.6 oz pure alcohol) 1 drink of vodka daily per pt 04/29/2023 [facility] Utilities Answer Date Recorded In the past 12 months has [employer], gas, oil, or water [employer] threatened to shut off services in your [...] any clubs o r organizations such as presybeterian groups, unions, fraternal or athletic groups, or [...] when you are drinking? 1 or 2 3 Q3: How often do you have si x or more drinks on one occasion? Never 08/21/2023 Overall Financial Resource Strain (CARDIA) Answe r Date Recorded How hard is it for you to pa y for the very basics like food, housing, medical care, and heating? Not very hard 08/21/2023 PHQ-2 Answer Date Recorded PHQ-2 score 0 08/21/2023 [facility] Answer Date Recorded [...] place to sleep or slept in a usp (including now)? No 08/21/2023 Area Deprivation Index Answer Date Matthieu rded National Score (1-100), lower number is lower ri sk 73 04/29/2023 State Score (1-10), lower number is lower risk 6 04/29/2023 Data from: https://www.neighborhoodatlas.medicine.[facility].edu/. 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 4 or more times a week 08/21/2023 11:37 AM Tresa Zendejas LSW Q2: How many drinks containing alcohol do you have on a typical day when you are drinking? 1 or 2 08/21/2023 11:37 AM Tresa Zendejas LSW Q3: How often do you have six or more drinks on one occasion? Never 08/21/2023 11:37 AM EDT Tresa Torrez LSW * Are you deaf or do you [...] on filedocumented in this encounter Care Teams Pbx Supervisor Relationship Specialty Start Date End Date Mark Hawkins MD PCP - General Family Medicine 08/01/11 documented as of this encounter
--- OUTSIDE RECORDS SUMMARY | 2025-04-08 18:40 | XMS_ITS | Clinical Summary ---
Author Organization [facility] Address [address] [place] [address] Care Team Providers Care Filler Picker Name Role Phone Mark Hawkins MD Primary Care Provider [phone] Allergies No known active allergies Medications atenolol (Tenormin) 25 MG tablet 1 (one) time each day at the same time. Active lisinopril 20 MG tablet 1 (one) time each day at the same time. Active simvastatin (Zocor) 40 MG tablet Orally at bedtime Active amLODIPine (Norvasc) 10 MG tablet Take 10 mg by mouth in the morning. 07/25/2022 Active atenolol (Tenormin) 50 MG tablet Take 50 mg by mouth in the morning. 07/23/2022 Active atorvastatin (Lipitor) 40 MG tablet Take 40 mg by mouth at bedtime. 07/23/2022 Active diclofenac (Voltaren) 75 MG EC tablet Take 75 mg by mouth 2 (two) times a day as needed. 03/27/2023 Active ketorolac (Acular) 0.5 % ophthalmic solution APPLY 1 DROP INTO AFFECTED EYE(S) TWICE A DAY DIRECTED 01/28/2023 Active lisinopril 40 MG tablet Take 40 mg by mouth in the morning. 07/23/2022 Active meloxicam (Mobic) 15 MG tablet Take 15 mg by mouth in the morning. 05/24/2022 Active ofloxacin (Ocuflox) 0.3 % ophthalmic solution INSTILL 1 DROP INTO AFFECTED EYE THREE TIMES A DAY DIRECTED 01/28/2023 Active zolpidem (Ambien) 5 MG tablet TAKE 1 TABLET BY MOUTH AT BEDTIME ONCE A DAY FOR 30 DAYS 04/02/2023 Active Active Problems Problem Noted Date Diagnosed Date Osteoarthritis of knee 04/15/2023 Primary osteoarthritis 04/15/2023 Family History Relation Name Status Comments Father Mother Social History Tobacco Use Types Packs/Day Years Used Date Smoking Tobacco: Never Smokeless Tobacco: Never Tobacco Cessation:Counseling Given: Not Answered Alcohol Use Standard Drinks/Week Comments Not Currently 0 (1 standard drink = 0.6 oz pur e alcohol) Sex and Gender Information Value Date Recorded Sex Assigned at Not on file Legal Sex Male 6:45 PM EDT Gender Identity Not on file Sexual Orientation Not on file Last Filed Vital Signs Vital Sign Reading Time Taken Comments Blood Pressure 133/88 06/23/2019 12:00 PM EDT Pulse - - Temperature - - Respiratory Rate - - Oxygen Saturation - - Inhaled Oxygen Concentration - - Weight 97.5 kg (215 lb) 11/07/2022 12:00 PM EST Height 188 cm (6' 2 ) 11/07/2022 12:00 PM EST Body Mass Index 27.6 11/07/2022 12:00 PM EST Plan of Treatment Not on file [place] [address] Care Teams Filler Picker Relationship Specialty Start Date End Date Mark Hawkins MD PCP - General Family Medicine 04/16/23
--- OUTSIDE RECORDS SUMMARY | 2025-04-08 18:52 | XMS_ITS | CCD ---
Author Organization [facility] Care Team Providers Care Seismic Interpreter Name Role Phone Merline Fuller MD Primary Care Provider [phone] OSMAR NORIEGA Admitting Unavailable OSMAR NORIEGA Attending Unavailable HOY ., DR RICK Primary Care Unavailable OSMAR NORIEGA Consulting Unavailable HOY ., DR RICK Admitting Unavailable HOY ., DR RICK Attending Unavailable HOY ., DR RICK Primary Care Unavailable HOY ., DR RICK Consulting Unavailable Merline Fuller MD Primary Care Provider [phone] MARY FULLERLAS Brenton Primary Care Unavailable EDNA, SHAJI E Referring [...] Care Unavailable EDNA, SHAJI E Attending Unavailable GARCIA, LUMA M Referring Unavailable HOY, MERLINE M Primary Care Unavailable GARCIA, LUMA M Referring Unavailable HOY, MERLINE M Primary Care Unavailable NAWRAS, ALI Referring Unavailable NAWRAS, ALI Referring Unavailable NAWRAS, ALI Admitting Unavailable HOY, MERLINE Referring Unavailable NAWRAS, ALI Attending Unavailable NAWRAS, ALI Attending Unavailable NAWRAS, ALI Admitting Unavailable HOY, MERLINE Referring Unavailable Espinoza TEJEDA Attending Unavailable Hoy, Merline Referring Unavailable Allergies Allergy Classification Reported Allergen(s) Allergy Type Date of Onset Reaction(s) Facility (1 source) Ciprofloxacin; Translations: [CIPROFLOXACIN] Drug Allergy 11-16-2024 [facility] Repository (1 source) Ciprofloxacin; Translations: [Cipro] Drug Allergy [facility] Repository Medications Current Medications Medication Drug Class(es) Dates [...] on above: Take 2 tablets by mo uth every 8 hours for 14 days. Take 2 tablets by mo uth every 8 hours as needed for pain or fever for up to 14 days. amLODIPine 10 mg oral tablet (9 sources) Dihydropyridine Calcium Channel Meena Start: take 1 tablet by mouth once daily [...] above: Take 1 tablet by lia th twice daily. Take 1 tablet by lia th two times a day. atenolol 50 mg oral tablet (20 sources) beta-Adrenergic Meena take 1 tablet by mouth once daily take 1 tablet by mouth once ranjan y Comment on above: Take 1 tablet by lia th once daily. Unknown Dosage. atorvastatin 40 mg [...] 1 tablet by lia th once daily as needed for constipation for up to 14 days. docusate sodium 100 mg oral capsule (4 sources) Start: End: take 1 capsule by mouth twice daily docusate sodium (COLACE) 100 mg capsule Take 1 capsule by mouth two times a day. 60 capsule 0 09/05/2023 10/05/2023 Active Comment on above: Take 1 capsule by mo [facility] two times a day. Famotidine (20 sources) Histamine-2 Receptor Antagonist take 1 tablet by mouth once daily Comment on above: Take 1 tablet by lia th once daily. Unknown Dosage. lisinopril 40 mg oral tablet (20 sources) Angiotensin Converting Enzyme Inhibitor Start: lisinopril (ZESTRIL) 40 mg tablet Take 40 mg by mouth. 0 07/23/2022 Active Comment on above: Take 40 mg by mouth. meloxicam 15 mg oral tablet (3 sources) Nonsteroidal Anti-inflammatory Drug Start: 023 End: 023 take 1 tablet by mouth once daily [...] ectasia, unspecified site] Onset: 08-29-2023 08-29-2023 Chronic Biliary tract disease (2 sources) Other specified diseases of biliary tract; Translations: [Other specified diseases of biliary tract] Onset: 11-19-2024 Chronic Biliary tract disease (2 sources) Calculus of bile duct without cholangitis or cholecystitis without obstruction; Translations: [Calculus of bile duct without cholangitis or cholecystitis without obstruction] Onset: 12-17-2024 Episodic Cancer of prostate (15 sources) Malignant tumor [...] Test Name Value Interpretation Reference Range Facility Ambulatory Visit Summaryon 0 01-27-2025 Ambulatory Visit Summary Ambulatory Visit Summary RONNIE ABEBE :1950 Visit Date:01/27/2025 Ambulatory Visit Instructions Your Care Team Attending Physician - Espinoza TEJEDA MD Primary Care Physician - Merline Fuller MD Referring Physician - Merline Fuller MD This Is Your Medications List Contact prescribing physician if questions or concerns amlodipine (amLODIPine 10 mg Tab) atenolol (atenolol 50 mg Tab) atorvastatin (atorvastatin 40 mg Tab) diclofenac (diclofenac sodium 75 mg Oral EC Tab) lisinopril (lisinopril 40 mg Tab) pantoprazole (Protonix 40 mg Tab-DR) zolpidem (Ambien 10 mg Tab) Procedures Performed EGD - esophagogastroduodenoscopy (11/19/2024), ERCP (endoscopic retrograde cholangiopancreatography) with sphincterotomy (11/19/2024), Cataract extraction, Knee replacement. Discharge Vitals Heart Rate (Peripheral) 72 Respiratory Rate 16 Blood Pressure 102/64 Height 185 cm Height 73 in Weight 96.6 kg Weight 212.966 lb BMI 28.22 Medications What How Much When Instructions Unchanged amlodipine (amLODIPine 10 mg Tab) 1 Tablets By Mouth Every day Contact prescribing physician if questions or concerns Unchanged atenolol (atenolol 50 mg Tab) 1 Tablets By Mouth Every day Contact prescribing physician if questions or concerns Unchanged atorvastatin (atorvastatin 40 mg Tab) 1 Tablets By Mouth Every day Contact prescribing physician if questions or concerns Unchanged diclofenac (diclofenac sodium 75 mg Oral EC Tab) 1 Tablets By Mouth 2 times a day Contact prescribing physician if questions or concerns Unchanged lisinopril (lisinopril 40 mg Tab) 1 Tablets By Mouth Every day Contact prescribing physician if questions or concerns Unchanged pantoprazole (Protonix 40 mg Tab-DR) 1 Tablets By Mouth Every day Contact prescribing physician if questions or concerns Unchanged zolpidem (Ambien 10 mg Tab) 1 Tablets By Mouth Once a day (at bedtime) as needed for for sleep Contact prescribing physician if questions or concerns Allergies Cipro (Itching) Problems Ongoing - Any problem that you are currently receiving treatment for. BMI 28.0-28.9,adult Cardiac arrhythmia. Dilatation of aorta Erectile dysfunction Essential hypertension Gastroesophageal reflux disease History of malignant neoplasm of prostate Hyperlipidemia Overweight Pulmonary hypertension Tricuspid valve regurgitation Patient Survey You may receive a survey via text or e-mail asking about your office visit. Please share your experience with us by completing your survey. We appreciate your feedback and thank you for choosing us for your care. Normal [facility] HISTOLOGY - TISSUE EXAMon LAB AP CASE REPORT Normal [facility] Comment on above: Result Comment: Surg ical Pathology Case: [id number] Authorizing Provider: Maribel White MD Collected: 12/17/2024 1121 Ordering Location: [facility] Received: 12/17/2024 1327 [facility] Pathologist: Angeline Rodriguez MD Specimen: Common Bile Duct, distal CBD bx r/o adenoma Performed By: #### L [id number] ####[facility] ([facility])[address] [place] [address] LAB AP CLINICAL INFORMATION Order Diagnoses [facility] Comment on above: Result Comment: K80. 50 - Common bile duct calculi [ICD-10-CM] Performed By: #### L [id number] ####[facility] ([facility])[address] [place] [address] LAB AP GROSS DESCRIPTION [facility] Comment on above: Result Comment: A. C ommon Bile Duct. Received in formalin labeled Ronnie Abebe, distal CBD bx r/o adenoma , are gutierrez-weeks, delicate feathery fragments. The specimen is submitted to cytology for cellblock. Kelly Calabrese, Pathologists' Associate Director Finance Performed By: #### L [id number] ####[facility] ([facility])[address] [facility] [place] [address] LAB AP MICROSCOPIC DESCRIPTION Microscopic examination performed. [facility] Comment on above: Performed By: #### L [id number] ####[facility] ([facility])[address] [facility] [place] [address] LAB AP REPORT FINAL DIAGNOSIS NARRATIVE [facility] Comment on above: Result Comment: A. C ommon bile duct, distal, biopsy: - Ductal mucosa with marked acute and chronic inflammation, ulcer and reactive changes. - No dysplasia is seen. Performed By: #### L [id number] ####[facility] ([facility] [place] [address] HPon 12-17-2024 HP H&P reviewed. The pa tient was examined and there are no changes to the H&P. History of choledocholithiasis, status post ERCP with large stone removal and biliary stent placement. The patient is presenting today to have repeated ERCP for stent removal and for final clearance of the common bile duct. Normal [facility] POCT GLUCOSE METER UNSOLICIT ED RESULTSon 12-17-2024 Glucose [Mass/Vol] 102 mg/dL Normal 70-105 [facility] Comment on above: Order Comment: Waive d Testing in the ED is performed under the ED CLIA certificate #[id number]. Result Comment: ltol les Performed By: #### L [id number] ####[facility] ([facility])[address] [place] [address] Prep for Procedureon 025 Prep for Procedure [id number] Abram Abebe iel G 1950 U Date Provider Department Center 12/10/2024 [facility] Pre/Post [place] No family history on file Normal [facility] Orders Onlyon 11-24-2024 Orders Only [id number] Abram Abebe iel G 1950 U Date Provider Department Center 11/24/2024 [id number] KWONG [facility] [place] No family history on file Normal [facility] HISTOLOGY - TISSUE EXAMon LAB AP CASE REPORT Normal [facility] Comment on above: Result Comment: Surg ical Pathology Case: [id number] Authorizing Provider: Maribel White MD Collected: 11/19/2024 0951 Ordering Location: [facility] Received: 11/19/2024 1248 [facility]oscopy Pathologist: Les Santos MD Specimen: Small Intestine, Duodenum, ampulla bxs r/o malignancy Performed By: #### L [id number] ####[facility] (BEAKER)[address] [place] [address] LAB AP CLINICAL INFORMATION Order Diagnoses Normal [facility] Comment on above: Result Comment: K83. 8 - Common bile duct dilatation [ICD-10-CM] K83.8 - Dilation of common bile duct [ICD-10-CM] Performed By: #### L [id number] ####[facility] ([facility])[address] [facility] [place] [address] LAB AP GROSS DESCRIPTION [facility] Comment on above: Result Comment: A. S mall Intestine, Duodenum. Part A is received in formalin labeled Ronnie Nguyen and duodenum biopsy, ampulla bxs rule out malignancy. It consists of 5 gutierrez-pink, delicate, irregular pieces of mucosal soft tissue ranging from 0.2 cm to 0.7 cm in greatest dimension. The specimen is submitted in toto in 1 cassette. Genna Pollard, Pathologists' Associate Director Finance student Kelly Calabrese, Pathologists' Associate Director Finance Performed By: #### L [id number] ####[facility] ([facility])[address] [facility] [place] [address] LAB AP MICROSCOPIC DESCRIPTION Microscopic examination performed. [facility] Comment on above: Performed By: #### L [id number] ####[facility] ([facility])[address] [facility] [place] [address] LAB AP REPORT FINAL DIAGNOSIS NARRATIVE [facility] Comment on above: Result Comment: A. D uodenum, ampulla, biopsy: -Predominantly denuded tissue with mixed inflammation and focal reactive epithelial changes. -No malignancy identified. Performed By: #### L [id number] ####[facility] ([facility])[address] [facility] [place] [address] HPon 11-19-2024 HP History Of Present I llness Ronnie Abebe is a 74 y.o. adult presenting for the history of choledocholithiasis. The patient stated that he was in his usual state of health until end of September beginning of October when he started having jaundice and significant right upper quadrant abdominal pain. His liver function tests were noted to be elevated with his AST of 89, ALT of 159, alkaline phosphatase 653 and total bilirubin of 0.9' the patient had an MRCP that revealed abnormally dilated common bile duct with 10 mm x 5 mm stone in the distal common bile duct. The patient is scheduled to have an EUS with ERCP to assess the pancreaticobiliary system and for common bile duct stone removal. Past Medical History Ronnie has a past medical history of Bigeminy, Cancer (CMS/HCC), Cataract, Common bile duct (CBD) obstruction, Hyperlipidemia, Hypertension, Impotence, Insomnia, and Osteoarthritis. Surgical History Ronnie has a past surgical history that includes Knee Arthroplasty (Bilateral); Prostatectomy; and Cataract extraction. Social History Ronnie reports that Ronnie quit smoking about 56 years ago. Ronnie's smoking use included cigarettes. Ronnie has never used smokeless tobacco. Ronnie reports current alcohol use of about 7.0 standard drinks of alcohol per week. Ronnie reports that Ronnie does not use drugs. Family History No family history on file. Allergies Ciprofloxacin Medications (Not in a hospital admission) Review of Systems Constitutional: Negative. Eyes: Negative. Respiratory: Negative. Cardiovascular: Negative. Gastrointestinal: Negative. Genitourinary: Negative. Skin: Negative. Last Recorded Vitals Visit Vitals BP 150/80 Pulse (!) 45 Temp 36 ???C (96.8 ???F) (Temporal) Resp 18 Ht 1.854 m (6' 1 ) Wt 91.4 kg (201 lb 8 oz) SpO2 99% BMI 26.58 kg/m??? Smoking Status Former BSA 2.17 m??? Physical Exam HEENT: Anicteric sclera, conjunctiva Chest: Unremarkable Heart: Unremarkable Abdomen: Soft, no tenderness Lower extremities: No edema Relevant Lab Results No results found for: NA , K , CL , CO2 , BUN , CREATININE , GLUCOSE , CALCIUM , ANIONGAP , EGFR , BCR Relevant Imaging Results No image results found. Assessment/Plan Ronnie Abebe is a 74 y.o. adult presenting for the history of choledocholithiasis. The patient stated that he was in his usual state of health until end of September beginning of October when he started having jaundice and significant right upper quadrant abdominal pain. His liver function tests were noted to be elevated with his AST of 89, ALT of 159, alkaline phosphatase 653 and total bilirubin of 0.9' the patient had an MRCP that revealed abnormally dilated common bile duct with 10 mm x 5 mm stone in the distal common bile duct. The patient is scheduled to have an EUS with ERCP to assess the pancreaticobiliary system and for common bile duct stone removal. Normal [facility] NURSNOTEon 11-19-2024 NURSNOTE Skin WNL after groun ding patch removed Normal [facility] NURSNOTE Grounding patch appl ied to posterior thigh Normal [facility] POCT GLUCOSE METER UNSOLICIT ED RESULTSon 11-19-2024 Glucose [Mass/Vol] 89 mg/dL Normal 70-105 [facility] Comment on above: Order Comment: Waive d Testing in the ED is performed under the ED CLIA certificate #[id number]. Result Comment: acle ment Performed By: #### L [id number] ####[facility] (BE[facility]ER)[address] [place] [address] Prep for Procedureon 025 Prep for Procedure [id number] Abram Abebe G 1950 U [facility] Provider Department Center 11/16/2024 Paul-MARIBEL WHITE [facility] No family history on file [facility] Orders Onlyon 11-13-2024 Orders Only [id number] Abram Abebe iel G 1950 U Date Provider Department Center 11/13/2024 TEJA MARTE [facility] [place] No family history on file [facility] CNOVon 04-02-2024 CNOV Office Visit (ORAVON ) RONNIE ABEBE ([id number]) 1950 Date Time Provider Department 04/02/24 9:45 AM [...] None Currently Ambulating with: no ambulation aides ===== EXAM: POST OP KNEE ===== Bilateral Post-Operative Knee Ambulates with a: normal [...] up AND down, and 2+ dorsalis pedis Stability:Anterior/Posterior - Yes, stable and Varus/Valgus- Yes, stable Quad strength: intact RIGHT KNEE: Range of motion is 0 degrees in extension and 120 degrees of flexion. Extension La degrees Pain with ROM:No There is None effusion. Mal-alignment: No Tender to the palpation of None Neurovascular Status: Sensation Intact, Moves foot and ankle up AND down, and 2+ dorsalis pedis Stability:Anterior/Posterior - Yes, stable and Varus/Valgus- Yes, stable Quad strength: intact Imagin. Implants are well aligned. Implants are well fixed. There is no evidence of loosening. The History, Exam, and Plan as documented by the Orthopaedic surgery resident/fellow/physician entry level administrative assistant was reviewed and discussed in detail. [...] List As (more content not included)... Normal [facility] XR KNEE 3V AP/LAT/ALVARO BILon 04-02-2024 [...] Right total knee arthroplasty without hardware complication. Daycare Assistant: VI Transcribe Date/Time: Apr 02 2024 9:56A Dictated by : JONNY ROGERS MD This examination was interpreted and the report reviewed and electronically signed by: DIAZ FAN MD on Apr 02 2024 10:00AM EST [id number] Normal [facility] XR Knee - bilateral 3 Viewso n 04-02-2024 IMPRESSION: Right total knee arthroplasty without hardware complication. Daycare Assistant: PSCB Transcribe Date/Time: Apr 02 2024 9:56A Dictated [...] fracture or dislocation. DIVISION OF RADIOLOGY Provider, Jenny Vasques - 04/02/2024 * * *Final Report* * [...] Right total knee arthroplasty without hardware complication. Daycare Assistant: PSCB Transcribe Date/Time: Apr 02 2024 9:56A Dictated by : JONNY ROGERS MD This examination was interpreted and the report reviewed and electronically signed by: DIAZ FAN MD on Apr 02 2024 10:00AM [facility] Radiology Study observation (narrative) [facility] XR Knee - bilateral 3 ViewsO rdered By: Ccf Provider on 04-02-2024 [facility] CNOVon 10-03-2023 CNOV Office Visit (ORAVON ) RONNIE ABEBE ([id number]) 1950 M Date Time Provider Department 10/03/23 [...] Last 180 days 09/04/23 Shaji Bishop MD, [id number] Status post total knee replacement, right ..., Admission (Discharged) 05/07/23 Shaji Bishop MD, [id number] Primary osteoarthritis of left knee, Admission (Discharged) [...] Ambulating with: a cane and a walker ===== EXAM: POST OP KNEE ===== Right Post-Operative Knee Ambulates with a uses: [...] up AND down, and 2+ dorsalis pedis Stability:Anterior/Posterior - Yes, stable and Varus/Valgus- Yes, stable Quad [...] arthroplasty, right [Z96.651] Order(s):CONSULT TO PHYSICAL THERAPY [9046] Order #: [id number]: 1 FUTURE XR KNEE POST OP 3V AP/LAT/MERCHANT BILATERAL [6379062] Order #: [id number] FUTURE Prescriptions as of 10/03/2023 - aspirin, [...] Toprol bu (more content not included)... Normal [facility] XR KNEE 3V AP/LAT/MERCHANT R Ton [...] IMPRESSION: Right total knee arthroplasty without complication. Daycare Assistant: PSCB Transcribe Date/Time: Oct 03 2023 8:06A Dictated by : OSMAR ESPINOZA MD This examination was interpreted and the report reviewed and electronically signed by: OSMAR ESPINOZA MD on Oct 03 2023 3:26PM EST [id number] [facility] CNCOon 09-10-2023 CNCO Letter Text [facility] CNPNon 09-09-2023 CNPN Telephone (ORTHMN) RONNIE ABEBE ([id number]) 1950 M Date Time Provider Department 09/09/23 NICOLE MEEKS During your visit today, we [...] need a refill tomorrow, will pend to [facility]. Reminded how to take two for [...] by NICOLE MEEKS RN on 09/09/23 Normal [facility] Basic metabolic 2000 panelon 09-05-2023 Anion gap [Moles/Vol] 15 mmol/L Normal 9-18 [facility] Comment on above: Order Comment: Speci men Type: BLOOD SPECIMENOrdering Facility: [facility] Address: [address] [place] [address] Performed By: #### 2 4321-2 ####[facility] LABCLIA [id number] [id number] [address] [place] Calcium [Mass/Vol] 9.4 mg/dL Normal 8.5-10.2 [facility] Comment on above: Order Comment: Speci men Type: BLOOD SPECIMENOrdering Facility: [facility] Address: [address] [place] [address] Performed By: #### 2 4321-2 ####[facility] LABCLIA [id number] [place] [address] [place] Chloride [Moles/Vol] 100 mmol/L Normal 97-105 [facility] Comment on above: Order Comment: Speci men Type: BLOOD SPECIMENOrdering Facility: [facility] Address: [address] [place] [address] Performed By: #### 2 4321-2 ####[facility] LABCLIA [id number] [place] [address] [place] CO2 [Moles/Vol] 20 mmol/L Low 22-30 [facility] Comment on above: Order Comment: Speci men Type: BLOOD SPECIMENOrdering Facility: [facility] Address: [address] [place] [address] Performed By: #### 2 4321-2 ####[facility] LABCLIA [id number] [place] [address] [place] Creatinine [Mass/Vol] 0.82 mg/dL Normal 0.73-1.22 [facility] Comment on above: Order Comment: Speci men Type: BLOOD SPECIMENOrdering Facility: [facility] Address: [address] [place] [address] Performed By: #### 2 4321-2 ####[facility] LABCLIA [id number] [place] [address] [place] Creatinine and Glomerular filtration rate.predicted panel (S/P/Bld) 93 mL/min/1.73m??? Normal >=60 [facility] Comment on above: Order Comment: Speci men Type: BLOOD SPECIMENOrdering Facility: [facility] Address: [address] [place] [address] Result Comment: Sarah mated Glomerular Filtration Rate [...] actual GFR. Performed By: #### 2 4321-2 ####[facility] LABCLIA [id number] [place] [address] [place] Glucose [Mass/Vol] 140 mg/dL High 74-99 [facility] Comment on above: Order Comment: Celina carmona Type: BLOOD SPECIMENOrdering Facility: [facility] Address: [address] [place] [address] Result Comment: The [place] Diabetes Association (ADA) provides guidance for cutoff [...] Standards of Medical Care in Diabetes 2016, [place] [employer] Association. Diabetes Care. 2016.39(Suppl 1). Performed By: #### 2 4321-2 ####[facility] LABCLIA [id number] [place] [address] [place] Potassium [Moles/Vol] 4.4 mmol/L Normal 3.7-5.1 [facility] Comment on above: Order Comment: Celina men Type: BLOOD SPECIMENOrdering Facility: [facility] Address: [address] [place] [address] Performed By: #### 2 4321-2 ####[facility] LABCLIA [id number] [place] [address] [place] Sodium [Moles/Vol] 135 mmol/L Low 136-144 [facility] Comment on above: Order Comment: Speci men Type: BLOOD SPECIMENOrdering Facility: [facility] Address: [address] [place] [address] Performed By: #### 2 4321-2 ####[facility] LABCLIA [id number] [place] [address] [place] Urea nitrogen [Mass/Vol] 15 mg/dL Normal 9-24 [facility] Comment on above: Order Comment: Speci men Type: BLOOD SPECIMENOrdering Facility: [facility] Address: [address] [place] [address] Performed By: #### 2 4321-2 ####[facility] LABCLIA [id number] [address] [place] CASE MANAGEMon 09-05-2023 CASE MANAGEM HNO ID: [id number] Author: Grant Huerta LSW Service: ? Author Type: Oil Expeller Type: Care Mgt Progress Note Filed: 09/05/2023 9:12 AM Note Text: CARE MANAGEMENT DISCHARGE NOTE SERVICE DATE: September 05, 2023 SERVICE TIME: 9:11 AM Admission Date: 09/04/2023 LOS: 1 day Discharge Arrangement Discharge Arrangement: Home with Home Health Services Arranged Medical Services: Skilled Home Health Care Type: Physical Therapy [facility] Hospital Caregiver Assessment Caregiver is ready, willing and able to meet the patient's needs as recommended by the inter-professional team: Yes Name of Caregiver: [facility] Transportation Arrangements Transportation Arrangements: Car Date of Trip: 09/05/23 Destination: home Handoff Communication: Handoff to: Primary Care Physician Primary Care Physician Name/Phone: Merline Fuller MD [phone] Additional Information: N/A Discharge Information Row Name Admission (Current) from 09/04/2023 in [place] [address] [facility]. Patient discharged to home with HC services. Discharge orders sent to . SIGNATURE: JOVANNI Chung PATIENT NAME: Ronnie Abebe DATE: September 05, 2023 TIME: 9:11 AM CONTACT #: [phone] [facility] CASE MGT INIT Dinesh 2022 CASE MGT INIT ILIA HNO ID: [id number] Author: Grant Huerta LSW Service: ? Author Type: Oil Expeller Type: Care Mgt Initial Assessment Filed: 09/05/2023 8:39 AM Note Text: CARE MANAGEMENT: ASSESSMENT AND DISCHARGE PLAN SERVICE DATE: September 05, 2023 SERVICE TIME: 8:38 AM ASSESSMENT COMPLETED BY OUTPATIENT ORTHOPAEDIC FROZEN MEAT CUTTER ORTHOPAEDIC COORDINATION OF CARE Pre-Op Assessment Discharge [...] min Stress: No Stress Concern Present (08/21/2023) [place] [facility] - Occupational Stress Questionnaire Feeling of Stress : Only a little Social Connections: Socially Integrated (08/21/2023) Social Connection and Isolation Panel [NHANES] Frequency of Communication with Friends and Family: More than three times a week Frequency of Social Gatherings with Friends and Family: Once a week Attends Religion Services: 1 to 4 times per year [...] Year: No Utilities: Not At Risk (08/21/2023) [facility] Utilities Threatened with loss of utilities: No Area Deprivation Index: Medium Risk (04/29/2023) Area Deprivation Index National Score (1-100), lower number is lower risk: 73 State Score (1-10), lower number is lower risk: 6 Data from: https://www.neighborhoodatla s.medicine.[facility].edu/. Last address used for calculation: [address] [place] [address] [address] Equipment: Do you currently use [...] you are (more content not included)... Normal [facility] CBC panel Auto (Bld)on 09-05 Erythrocyte distribution width (RBC) [Ratio] 12.9 % Normal 11.5-15.0 [facility] Comment on above: Order Comment: Speci men Type: BLOOD SPECIMENOrdering Facility: [facility] Address: [address] [place] [address] Performed By: #### 5 8410-2 ####[facility] LABCLIA [id number] [place] [address] [place] Hematocrit (Bld) [Volume fraction] 39.8 % Normal 39.0-51.0 [facility] Comment on above: Order Comment: Speci men Type: BLOOD SPECIMENOrdering Facility: [facility] Address: [address] [place] [address] Performed By: #### 5 8410-2 ####[facility] LABCLIA [id number] [place] [address] [place] Hemoglobin (Bld) [Mass/Vol] 13.0 g/dL Normal 13.0-17.0 [facility] Comment on above: Order Comment: Speci men Type: BLOOD SPECIMENOrdering Facility: [facility] Address: [address] [place] [address] Performed By: #### 5 8410-2 ####[facility] LABCLIA [id number] [place] [address] [place] MCH (RBC) [Entitic mass] 31.8 pg Normal 26.0-34.0 [facility] Comment on above: Order Comment: Speci men Type: BLOOD SPECIMENOrdering Facility: [facility] Address: [address] [place] [address] Performed By: #### 5 8410-2 ####[facility] LABIA [id number] [place] [address] [place] MCHC (RBC) [Mass/Vol] 32.7 g/dL Normal 30.5-36.0 [facility] Comment on above: Order Comment: Speci men Type: BLOOD SPECIMENOrdering Facility: [facility] Address: [address] [place] [address] Performed By: #### 5 8410-2 ####[facility] LABIA [id number] [place] [address] [place] MCV (RBC) [Entitic vol] 97.3 fL Normal 80.0-100.0 [facility] Comment on above: Order Comment: Speci men Type: BLOOD SPECIMENOrdering Facility: [facility] Address: [address] [place] [address] Performed By: #### 5 8410-2 ####[facility] [id number] [place] [address] [place] Nucleated RBC (Bld) [#/Vol] 10*3/uL Normal <0.01 [facility] Comment on above: Order Comment: Speci men Type: BLOOD SPECIMENOrdering Facility: [facility] Address: [address] [place] [address] Performed By: #### 5 8410-2 ####[facility] LABIA [id number] [place] [address] [place] Platelet mean volume (Bld) [Entitic vol] 10.4 fL Normal 9.0-12.7 [facility] Comment on above: Order Comment: Speci men Type: BLOOD SPECIMENOrdering Facility: [facility] Address: [address] [place] [address] Performed By: #### 5 8410-2 ####[facility] LABIA [id number] [place] [address] [place] Platelets (Bld) [#/Vol] 257 10*3/uL Normal 150-400 [facility] Comment on above: Order Comment: Speci men Type: BLOOD SPECIMENOrdering Facility: [facility] Address: [address] [place] [address] Performed By: #### 5 8410-2 ####[facility] LABIA [id number] [place] [address] [place] RBC (Bld) [#/Vol] 4.09 10*6/uL Low 4.20-6.00 [facility] Comment on above: Order Comment: Speci men Type: BLOOD SPECIMENOrdering Facility: [facility] Address: [address] [place] [address] Performed By: #### 5 8410-2 ####[facility] [id number] [place] [address] [place] WBC (Bld) [#/Vol] 14.83 10*3/uL High 3.70-11.00 [facility] Comment on above: Order Comment: Speci men Type: BLOOD SPECIMENOrdering Facility: [facility] Address: [address] [place] [address] Performed By: #### 5 8410-2 ####[facility] LABIA [id number] [address] [place] NURSING PROGon 09-05-2023 NURSING PROG HNO ID: [id number] Author: Mary Carvalho RN Service: Nursing Author [...] will transport home via personal vehicle. Normal [facility] THERAPY NTon 09-05-2023 THERAPY NT HNO ID: [id number] Author: Marichuy Mejia, OTR/L Service: Occupational Therapy Author Type: Occupational Therapist Type: Therapy (PT/OT/Speech/Resp) Filed: 09/05/2023 11:18 AM Note Text: Occupational Therapy Evaluation SERVICE DATE: 09/05/2023 SERVICE TIME: 940 to 955 ROOM: [place] [address] Total Joint Replacement Discharge Readiness: Cleared from [...] needs, educated pt on LB clothing management Cognition/Communication Deficits Responsiveness: Alert, Awake Follows Commands: 3-step [...] Interventions Provided: Evaluation $ Evaluation - Low (94980) Billed Units: 1 unit Training AND Education Provided in: Discharge Planning, Activity Adaptation/Compensatory Strategies, Functional Mobility Involving ADLs, Lower Extremity Dressing, Positioning, Precautions/Restrictions, Role of Occupational Therapy, Standing Balance to Improve [place] with ADLs/Self-Care The Following Therapeutic Skills Were Used: Activity Dosing, Cues for Sequencing/Proper Technique for Activity, Cuing Tactile, Cuing Verbal, Cuing Visual, Physical Assist, Therapeutic Use of Self, Teach-Back for Education Skilled Treatment Time (minutes): 15 Please see discipline specific clinical documentation flow (more content not included)... Normal [facility] THERAPY NT HNO ID: [id number] Author: Michele Hoff PTA Service: Physical Therapy Author Type: Fishing Lure Assembler Type: Therapy (PT/OT/Speech/Resp) Filed: 09/05/2023 9:33 AM Note Text: Attestation signed by Margaret Goldman PT DPT at 09/05/2023 9:45 AM I reviewed and agree with the documentation corresponding to this therapy visit. SIGNATURE: Margaret Varma Asp, PT DPT DATE: September 05, 2023 TIME: 9:44 AM Physical Therapy Treatment SERVICE DATE: 09/05/2023 SERVICE TIME: 819 to 912 ROOM: [place] [address] Total Joint Replacement Discharge Readiness: Cleared from [...] Stance time decreased, Weight bearing decreased General Deviations/Observations: Antalgic gait, Ana María decreased, Flexed trunk [...] Daily Plan (more content not included)... Normal [facility] ANES POSTPROC EVALon 023 ANES POSTPROC EVAL HNO ID: [id number] Author: Alba Goel MD Service: ? Author Type: Anesthesiologist Type: Anesthesia Postprocedure Evaluation Filed: 09/04/2023 4:40 PM Note Text: POST ANESTHESIA EVALUATION NOTE : 1950 Procedure Summary Date: 09/04/23 Room / Location: [address] [facility] Anesthesia Start: 1053 Anesthesia Stop: [...] September 04, 2023 TIME: 4:40 PM CSN: [id number] Normal [facility] ANES PRE-OPon 09-04-2023 ANES PRE-OP HNO ID: [id number] Author: Alba Goel MD Service: ? Author Type: Anesthesiologist Type: Anesthesia Preprocedure Evaluation Filed: 09/04/2023 7:35 AM Note Text: ANESTHESIOLOGY DAY OF SURGERY NOTE : 1950 Procedure Information Date/Time: 09/04/23 0845 Procedure: ROBOTIC ASSISTED TOTAL KNEE ARTHROPLASTY (Right: Knee) Location: [place] [address] [facility] Surgeons: Shaji Bishop MD Estimated body mass [...] adequate. Short neck: no. Thick neck: no Microretrognathia/Micronagth ia/Recessed Chin: No DENTAL Dental findings: teeth intact. [...] 0724 Pulse 60 09/04/23 0732 Resp 16 09/04/23641 Temp 36.1 ?C (97 ?F) 09/04/23 0642 SpO2 99 % 09/04/2332 Facility-Administered Medications as of 09/04/2023 Medication Dose [...] September 04, 2023 TIME: 7:33 AM CSN: [id number] Normal [facility] BRIEF OP NOTon 09-04-2023 BRIEF OP NOT HNO ID: [id number] Author: Michelet Johnston MD Service: Orthopaedic Surgery Author Type: Resident Type: Brief Op Note Filed: 09/04/2023 1:29 PM Note Text: BRIEF OP NOTE LOG ID: [id number] Surgery/Procedure Date: 09/04/2023 Incision/Procedure Start Time: 11:29 AM Incision Close/Procedure End Time: Surgeon(s)/Proceduralist(s) and Associate Director Finance(s): Surgeon(s) and Role: * Shaji Bishop MD [...] 04, 2023 TIME: 1:29 PM PAGER/CONTACT #: [phone] Plan of care discussed with: Provider, RN, Patient. Normal [facility] Basic metabolic 2000 panelon 09-04-2023 Anion gap [Moles/Vol] 10 mmol/L Normal 9-18 [facility] Comment on above: Order Comment: Speci men Type: BLOOD SPECIMENOrdering Facility: [facility] Address: [address] [place] [address] Performed By: #### 2 4321-2 ####[facility] LABCLIA [id number] [place] [address] [address] [place] Calcium [Mass/Vol] 9.6 mg/dL Normal 8.5-10.2 [facility] Comment on above: Order Comment: Speci men Type: BLOOD SPECIMENOrdering Facility: [facility] Address: [address] [place] [address] Performed By: #### 2 4321-2 ####[facility] LABCLIA [id number] [place] [address] [place] Chloride [Moles/Vol] 105 mmol/L Normal 97-105 [facility] Comment on above: Order Comment: Speci men Type: BLOOD SPECIMENOrdering Facility: [facility] Address: [address] [place] [address] Performed By: #### 2 4321-2 ####[facility] LABCLIA [id number] [place] [address] [place] CO2 [Moles/Vol] 24 mmol/L Normal 22-30 [facility] Comment on above: Order Comment: Speci men Type: BLOOD SPECIMENOrdering Facility: [facility] Address: [address] [place] [address] Performed By: #### 2 4321-2 ####[facility] LABCLIA [id number] [place] [address] [place] Creatinine [Mass/Vol] 0.87 mg/dL Normal 0.73-1.22 [facility] Comment on above: Order Comment: Speci men Type: BLOOD SPECIMENOrdering Facility: [facility] Address: [address] [place] [address] Performed By: #### 2 4321-2 ####[facility] LABCLIA [id number] [place] [address] [place] Creatinine and Glomerular filtration rate.predicted panel (S/P/Bld) 92 mL/min/1.73m??? Normal >=60 [facility] Comment on above: Order Comment: Speci men Type: BLOOD SPECIMENOrdering Facility: [facility] Address: [address] [place] [address] Result Comment: Sarah mated Glomerular Filtration Rate [...] actual GFR. Performed By: #### 2 4321-2 ####[facility] LABCLIA [id number] [place] [address] [place] Glucose [Mass/Vol] 109 mg/dL High 74-99 [facility] Comment on above: Order Comment: Celina carmona Type: BLOOD SPECIMENOrdering Facility: [facility] Address: [address] [place] [address] Result Comment: The [place] Diabetes Association (ADA) provides guidance for cutoff [...] Standards of Medical Care in Diabetes 2016, [place] [employer] Association. Diabetes Care. 2016.39(Suppl 1). Performed By: #### 2 4321-2 ####[facility] LABIA [id number] [place] [address] [place] Potassium [Moles/Vol] 4.2 mmol/L Normal 3.7-5.1 [facility] Comment on above: Order Comment: Celina carmona Type: BLOOD SPECIMENOrdering Facility: [facility] Address: [address] [place] [id number] Performed By: #### 2 4321-2 ####[facility] LABIA [id number] [place] [address] [place] Sodium [Moles/Vol] 139 mmol/L Normal 136-144 [facility] Comment on above: Order Comment: Celina carmona Type: BLOOD SPECIMENOrdering Facility: [facility] Address: [address] [facility] [place] [address] Performed By: #### 2 4321-2 ####[facility] LABCLIA [id number] [address] [place] Urea nitrogen [Mass/Vol] 19 mg/dL Normal 9-24 [facility] Comment on above: Order Comment: Speci men Type: BLOOD SPECIMENOrdering Facility: [facility] Address: [address] [place] [address] Performed By: #### 2 4321-2 ####[facility] LABCLIA [id number] [address] OF [facility] CNDSon 09-04-2023 CNDS HNO ID: [id number] Author: Erin Paez DO Service: Orthopaedic Surgery [...] Your Medications These medications were sent to [facility] [address] [place] [address] Hours: Saturday-Saturday 7am-8pm, Saturday, Saturday and Holidays 9am-5pm acetaminophen 500 mg tablet aspirin, enteric coated 81 mg EC tablet docusate sodium 100 mg capsule oxyCODONE IR 5 mg immediate release tablet Follow-Up in 10-14 days Futu (more content not included)... Normal [facility] OPERATIVE NOon 09-04-2023 OPERATIVE NO HNO ID: [id number] Author: Shaji Bishop MD Service: Orthopaedic Surgery Author Type: Physician Type: Operative Report Filed: 09/05/2023 3:54 PM Note Text: [facility] [address] [place] [address] [place] OPERATIVE NOTE PATIENT NAME: Ronnie Abebe AGE: [age] year old LOG ID: [id number] SURGERY DATE: 09/04/2023 SURGEON AND ASSISTANTS: Surgeon(s) [...] acid was used for blood conservation. The [employer] robot was prepared and draped. The Robotic [...] incision. Di (more content not included)... Normal [facility] THERAPY NTon 09-04-2023 THERAPY NT HNO ID: [id number] Author: Margaret Goldman, PT, DPT Service: Physical Therapy Author Type: Physical Therapist Type: Therapy (PT/OT/Speech/Resp) Filed: 09/04/2023 5:55 PM Note Text: Physical Therapy Evaluation SERVICE DATE: 09/04/2023 SERVICE TIME: 1645 to 1742 ROOM: [id number] Total Joint Replacement Discharge Readiness: Cleared from [...] decreased, Knee flexion during stance increased General Deviations/Observations: Ana María decreased Balance: Static Sitting, Dynamic [...] and mobility-other Interventions Provided: Evaluation, Therapeutic Exercise (00426), Therapeutic Activity (23669), Gait Training (57812) $ Evaluation-Low (20952) Billed Units: 1 unit Therapeutic Exercise (85310) Treatment Minutes: 15 $ Therapeutic Exercise (59951) Billed Units: 1 unit Therapeutic Activity (29280) Treatment Minutes: 10 $ Therapeutic Activity (64438) Billed Units: 1 unit Gait Training (69214) Treatment Minutes: 15 $ Gait Training (87452) Billed Units: 1 unit Training AND Education Provided in: Anatomy and Impact on Deficits, Assistive Device Use, Bed Mobility, Benefits of In-Hospital Mobility, Discharge Planning, Energy Conservation, Expected Functional Level, Falls Prevention, Gait Pattern, Reduction of Deviations, Precautions/Restrictions, Role of Physical Therapy, Stair Navigation, Standing Balance, Transfers The Following Therapeutic Skills Were Used: Activity Dosing, Assessment of Tolerance Including Vitals Response to Activity, Cues for Sequencing/Proper Technique for Activity, Cuing Tactile, Cuing Verbal, Cuing Visual (more content not included)... Normal [facility] Basic metabolic 2000 panelon 08-29-2023 Anion gap [Moles/Vol] 11 mmol/L 9 - 18 mmol/L [facility] Calcium [Mass/Vol] 9.4 mg/dL 8.5 - 10. 2 mg/dL [facility] Chloride [Moles/Vol] 106 mmol/L High 97 - 105 mmol/L [facility] CO2 [Moles/Vol] 22 mmol/L 22 - 30 mmol/L [facility] Creatinine [Mass/Vol] 1.40 mg/dL High 0.73 - 1.22 mg/dL [facility] Estimated Glomerular Filtration Rate 53 mL/min/1.73m Low >=60 mL/min/1.73 m [facility] Glucose [Mass/Vol] 101 mg/dL High 74 - 99 mg/dL [facility] Potassium [Moles/Vol] 5.3 mmol/L High 3.7 - 5.1 mmol/L [facility] Sodium [Moles/Vol] 139 mmol/L 136 - 144 mmol/L [facility] Urea nitrogen [Mass/Vol] 29 mg/dL High 9 - 24 mg/dL [facility] Anion gap [Moles/Vol] 11 mmol/L Normal 9-18 [facility] Comment on above: Order Comment: Speci men Type: BLOOD SPECIMENOrdering Facility: [facility] Address: [address] [place] [address] Performed By: #### 2 4321-2, 61984-0, 2275- ####[facility] LABCLIA [id number] [place] [address] [place] Calcium [Mass/Vol] 9.4 mg/dL Normal 8.5-10.2 [facility] Comment on above: Order Comment: Speci men Type: BLOOD SPECIMENOrdering Facility: [facility] Address: [address] [place] [address] Performed By: #### 2 4321-2, 66461-3, 2276-01 ####[facility] LABCLIA [id number] [place] [address] [place] Chloride [Moles/Vol] 106 mmol/L High 97-105 [facility] Comment on above: Order Comment: Speci men Type: BLOOD SPECIMENOrdering Facility: [facility] Address: [address] [place] [address] Performed By: #### 2 4321-2, 32575-8, 2276-01 ####[facility] LABCLIA [id number] [place] [address] [place] CO2 [Moles/Vol] 22 mmol/L Normal 22-30 [facility] Comment on above: Order Comment: Speci men Type: BLOOD SPECIMENOrdering Facility: [facility] Address: [address] [place] [address] Performed By: #### 2 4321-2, 81725-5, 2275- ####[facility] LABCLIA [id number] [place] [id number] [place] Creatinine [Mass/Vol] 1.40 mg/dL High 0.73-1.22 [facility] Comment on above: Order Comment: Celina carmona Type: BLOOD SPECIMENOrdering Facility: [facility] Address: [address] [place] [address] Performed By: #### 2 4321-2, 44301-3, 6-4 ####[facility] LABCLIA [id number] [place] [address] [facility] [place] Creatinine and Glomerular filtration rate.predicted panel (S/P/Bld) 53 mL/min/1.73m??? Low >=60 [facility] Comment on above: Order Comment: Celina carmona Type: BLOOD SPECIMENOrdering Facility: [facility] Address: [address] [place] [address] Result Comment: Sarah mated Glomerular Filtration Rate [...] actual GFR. Performed By: #### 2 4321-2, 72352-2, 2275-4 ####[facility] LABCLIA [id number] [place] [address] [place] Glucose [Mass/Vol] 101 mg/dL High 74-99 [facility] Comment on above: Order Comment: Celina carmona Type: BLOOD SPECIMENOrdering Facility: [facility] Address: [address] [place] [address] Result Comment: The [place] Diabetes Association (ADA) provides guidance for cutoff [...] Standards of Medical Care in Diabetes 2016, [place] Diabetes Association. Diabetes Care. 2016.39(Suppl 1). Performed By: #### 2 4321-2, 57400-4, 2276-01 ####[facility] LABCLIA [id number] [place] [id number] [place] Potassium [Moles/Vol] 5.3 mmol/L High 3.7-5.1 [facility] Comment on above: Order Comment: Speci men Type: BLOOD SPECIMENOrdering Facility: [facility] Address: [address] [place] [address] Performed By: #### 2 4321-2, 44187-3, 2276-01 ####[facility] LABCLIA [id number] [place] [address] [place] Sodium [Moles/Vol] 139 mmol/L Normal 136-144 [facility] Comment on above: Order Comment: Speci men Type: BLOOD SPECIMENOrdering Facility: [facility] Address: [address] [place] [address] Performed By: #### 2 4321-2, 16763-2, 2276-01 ####[facility] LABCLIA [id number] [place] [address] [place] Urea nitrogen [Mass/Vol] 29 mg/dL High 9-24 [facility] Comment on above: Order Comment: Speci men Type: BLOOD SPECIMENOrdering Facility: [facility] Address: [address] [place] [address] Performed By: #### 2 4321-2, 57961-2, 2276-01 ####[facility] LABCLIA [id number] [address] [address] [place] CBC W Auto Differential pane l (Bld)on 08-29-2023 Basophils (Bld) [#/Vol] 0.06 10*3/uL <0.11 k/uL [facility] Basophils/100 WBC (Bld) 0.7 % [facility] Differential cell count method Nom (Bld) Auto [facility] Eosinophils (Bld) [#/Vol] 0.32 10*3/uL <0.46 k/uL [facility] Eosinophils/100 WBC (Bld) 3.5 % [facility] Erythrocyte distribution width (RBC) [Ratio] 13.4 % 11.5 - 15.0 % [facility] Hematocrit (Bld) [Volume fraction] 43.2 % 39.0 - 51.0 % [facility] Hemoglobin (Bld) [Mass/Vol] 13.3 g/dL 13.0 - 17.0 g/dL [facility] Immature granulocytes (Bld) [#/Vol] 0.04 10*3/uL <0.10 k/uL [facility] Immature granulocytes/100 WBC (Bld) 0.4 % [facility] Lymphocytes (Bld) [#/Vol] 2.10 10*3/uL 1.00 - 4.00 k/uL [facility] Lymphocytes/100 WBC (Bld) 22.9 % [facility] MCH (RBC) [Entitic mass] 31.2 pg 26.0 - 34.0 pg [facility] MCHC (RBC) [Mass/Vol] 30.8 g/dL 30.5 - 36.0 g/dL [facility] MCV (RBC) [Entitic vol] 101.4 fL High 80.0 - 100.0 fL [facility] Monocytes (Bld) [#/Vol] 1.16 10*3/uL High <0.87 k/uL [facility] Monocytes/100 WBC (Bld) 12.7 % [facility] Neutrophils (Bld) [#/Vol] 5.48 10*3/uL 1.45 - 7.50 k/uL [facility] Neutrophils/100 WBC (Bld) 59.8 % [facility] Nucleated RBC (Bld) [#/Vol] <0.01 k/uL [facility] Nucleated RBC/100 WBC (Bld) [Ratio] 0.0 /100 WBC [facility] Platelet mean volume (Bld) [Entitic vol] 10.4 fL 9.0 - 12.7 fL [facility] Platelets (Bld) [#/Vol] 283 10*3/uL 150 - 400 k/uL [facility] RBC (Bld) [#/Vol] 4.26 10*6/uL 4.20 - 6.0 0 m/uL [facility] WBC (Bld) [#/Vol] 9.16 10*3/uL 3.70 - 11.00 k/uL [facility] Basophils (Bld) [#/Vol] 0.06 10*3/uL Normal <0.11 [facility] Comment on above: Order Comment: Speci men Type: BLOOD SPECIMENOrdering Facility: [facility] Address: [address] [place] [address] Performed By: #### 5 7021-8 ####[facility] LABCLIA [id number] [place] [address] [place] Basophils/100 WBC (Bld) 0.7 % Normal [facility] Comment on above: Order Comment: Speci men Type: BLOOD SPECIMENOrdering Facility: [facility] Address: [address] [place] [address] Performed By: #### 5 7021-8 ####[facility] LABCLIA [id number] [place] [address] [place] Differential cell count method Nom (Bld) Auto Normal [facility] Comment on above: Order Comment: Speci men Type: BLOOD SPECIMENOrdering Facility: [facility] Address: [address] [place] [address] Performed By: #### 5 7021-8 ####[facility] LABCLIA [id number] [place] [address] [place] Eosinophils (Bld) [#/Vol] 0.32 10*3/uL Normal <0.46 [facility] Comment on above: Order Comment: Speci men Type: BLOOD SPECIMENOrdering Facility: [facility] Address: [address] [place] [address] Performed By: #### 5 7021-8 ####[facility] LABCLIA [id number] [address] [id number] [address] [place] Eosinophils/100 WBC (Bld) 3.5 % Normal [facility] Comment on above: Order Comment: Speci men Type: BLOOD SPECIMENOrdering Facility: [facility] Address: [address] [place] [address] Performed By: #### 5 7021-8 ####[facility] LABCLIA [id number] [place] [address] [place] Erythrocyte distribution width (RBC) [Ratio] 13.4 % Normal 11.5-15.0 [facility] Comment on above: Order Comment: Speci men Type: BLOOD SPECIMENOrdering Facility: [facility] Address: [address] [place] [address] Performed By: #### 5 7021-8 ####[facility] LABCLIA [id number] [place] [address] [place] Hematocrit (Bld) [Volume fraction] 43.2 % Normal 39.0-51.0 [facility] Comment on above: Order Comment: Speci men Type: BLOOD SPECIMENOrdering Facility: [facility] Address: [address] [place] [address] Performed By: #### 5 7021-8 ####[facility] LABCLIA [id number] [place] [address] [place] Hemoglobin (Bld) [Mass/Vol] 13.3 g/dL Normal 13.0-17.0 [facility] Comment on above: Order Comment: Speci men Type: BLOOD SPECIMENOrdering Facility: [facility] Address: [address] [place] [address] Performed By: #### 5 7021-8 ####[facility] LABCLIA [id number] [place] [address] [place] Immature granulocytes (Bld) [#/Vol] 0.04 10*3/uL Normal <0.10 [facility] Comment on above: Order Comment: Speci men Type: BLOOD SPECIMENOrdering Facility: [facility] Address: [address] [place] [address] Performed By: #### 5 7021-8 ####[facility] LABCLIA [id number] [place] [address] [place] Immature granulocytes/100 WBC (Bld) 0.4 % Normal [facility] Comment on above: Order Comment: Speci men Type: BLOOD SPECIMENOrdering Facility: [facility] Address: [address] [place] [address] Performed By: #### 5 7021-8 ####[facility] LABIA [id number] [place] [address] [place] Lymphocytes (Bld) [#/Vol] 2.10 10*3/uL Normal 1.00-4.00 [facility] Comment on above: Order Comment: Speci men Type: BLOOD SPECIMENOrdering Facility: [facility] Address: [address] [place] [address] Performed By: #### 5 7021-8 ####[facility] LABIA [id number] [place] [address] [place] Lymphocytes/100 WBC (Bld) 22.9 % Normal [facility] Comment on above: Order Comment: Speci men Type: BLOOD SPECIMENOrdering Facility: [facility] Address: [address] [place] [address] Performed By: #### 5 7021-8 ####[facility] LABIA [id number] [place] [address] [place] MCH (RBC) [Entitic mass] 31.2 pg Normal 26.0-34.0 [facility] Comment on above: Order Comment: Speci men Type: BLOOD SPECIMENOrdering Facility: [facility] Address: [address] [place] [address] Performed By: #### 5 7021-8 ####[facility] LABIA [id number] [place] [address] [place] MCHC (RBC) [Mass/Vol] 30.8 g/dL Normal 30.5-36.0 [facility] Comment on above: Order Comment: Speci men Type: BLOOD SPECIMENOrdering Facility: [facility] Address: [address] [place] [address] Performed By: #### 5 7021-8 ####[facility] LABCLIA [id number] [place] [address] [place] MCV (RBC) [Entitic vol] 101.4 fL High 80.0-100.0 [facility] Comment on above: Order Comment: Speci men Type: BLOOD SPECIMENOrdering Facility: [facility] Address: [address] [place] [address] Performed By: #### 5 7021-8 ####[facility] LABCLIA [id number] [place] [address] [place] Monocytes (Bld) [#/Vol] 1.16 10*3/uL High <0.87 [facility] Comment on above: Order Comment: Speci men Type: BLOOD SPECIMENOrdering Facility: [facility] Address: [address] [place] [address] Performed By: #### 5 7021-8 ####[facility] LABCLIA [id number] [place] [address] [place] Monocytes/100 WBC (Bld) 12.7 % Normal [facility] Comment on above: Order Comment: Speci men Type: BLOOD SPECIMENOrdering Facility: [facility] Address: [address] [place] [address] Performed By: #### 5 7021-8 ####[facility] LABCLIA [id number] [place] [address] [place] Neutrophils (Bld) [#/Vol] 5.48 10*3/uL Normal 1.45-7.50 [facility] Comment on above: Order Comment: Speci men Type: BLOOD SPECIMENOrdering Facility: [facility] Address: [address] [place] [address] Performed By: #### 5 7021-8 ####[facility] LABIA [id number] [place] [address] [place] Neutrophils/100 WBC (Bld) 59.8 % Normal [facility] Comment on above: Order Comment: Speci men Type: BLOOD SPECIMENOrdering Facility: [facility] Address: [address] [place] [address] Performed By: #### 5 7021-8 ####[facility] LABCLIA [id number] [place] [address] [place] Nucleated RBC (Bld) [#/Vol] 10*3/uL Normal <0.01 [facility] Comment on above: Order Comment: Speci men Type: BLOOD SPECIMENOrdering Facility: [facility] Address: [address] [place] [address] Performed By: #### 5 7021-8 ####[facility] LABIA [id number] [place] [address] [place] Nucleated RBC/100 WBC (Bld) [Ratio] 0.0 /100 WBC Normal [facility] Comment on above: Order Comment: Speci men Type: BLOOD SPECIMENOrdering Facility: [facility] Address: [address] [place] [address] Performed By: #### 5 7021-8 ####[facility] LABIA [id number] [place] [address] [place] Platelet mean volume (Bld) [Entitic vol] 10.4 fL Normal 9.0-12.7 [facility] Comment on above: Order Comment: Speci men Type: BLOOD SPECIMENOrdering Facility: [facility] Address: [address] [place] [address] Performed By: #### 5 7021-8 ####[facility] LABIA [id number] [place] [address] [place] Platelets (Bld) [#/Vol] 283 10*3/uL Normal 150-400 [facility] Comment on above: Order Comment: Speci men Type: BLOOD SPECIMENOrdering Facility: [facility] Address: [address] [place] [address] Performed By: #### 5 7021-8 ####[facility] LABCLIA [id number] [place] [address] [place] RBC (Bld) [#/Vol] 4.26 10*6/uL Normal 4.20-6.00 [facility] Comment on above: Order Comment: Speci men Type: BLOOD SPECIMENOrdering Facility: [facility] Address: [address] [place] [address] Performed By: #### 5 7021-8 ####[facility] LABCLIA [id number] [place] [address] [place] WBC (Bld) [#/Vol] 9.16 10*3/uL Normal 3.70-11.00 [facility] Comment on above: Order Comment: Speci men Type: BLOOD SPECIMENOrdering Facility: [facility] Address: [address] [place] [address] Performed By: #### 5 7021-8 ####[facility] LABCLIA [id number] [place] [address] [place] KNEE WO IVCON RIGHTon [facility] CT KNEE WO IVCON RTon 2022 CT KNEE WO IVCON RT * * *Final Report* * * DATE OF EXAM: Aug 29 2023 10:03AM [facility] 0084 - CT KNEE WO IVCON RT / [...] Impression: Knee Osteoarthritis. No other significant abnormality. Daycare Assistant: VI Transcribe Date/Time: Aug 29 2023 10:39A Dictated by : LOCO CHO MD This examination was interpreted and the report reviewed and electronically signed by: DIAZ FAN MD on Aug 29 2023 10:44AM EST [id number] Normal [facility] ECG COMPLETEon 08-29-2023 ECG COMPLETE Ventricular Rate : 5 6 BPM Atrial Rate : 56 BPM P-R Interval : 168 ms QRS Duration : 78 ms Q-T Interval : 432 ms QTC Calculation(Bazett) : 416 ms Calculated P [place] : 35 degrees Calculated R [place] : -14 degrees Calculated T [place] : 5 degrees SINUS BRADYCARDIA WITH OCCASIONAL PREMATURE VENTRICULAR COMPLEXES OTHERWISE NORMAL ECG Confirmed by KAYLIE ESPAÑA MD ([id number]) on 09/02/2023 4:32:59 PM NAME : RONNIE ABEBE PID : [id number] : 1950 Gender : Male Race : ORD : [id number] Procedure Date : Aug 29 2023 08:30:40 [...] BISHOP Acquired by : ISABELLE LACEY Normal [facility] FERRITIN BLDon 08-29-2023 Ferritin [Mass/Vol] 266.0 ng/mL 30.3 - 565.7 ng/mL [facility] Ferritin SerPl-mCncon 2022 Ferritin [Mass/Vol] 266.0 ng/mL Normal 30.3-565.7 [facility] Comment on above: Order Comment: Speci men Type: BLOOD SPECIMENOrdering Facility: [facility] Address: [address] [place] [address] Performed By: #### 2 4321-2, 65319-1, 2276-4 ####[facility] LABCLIA [id number] [facility]ENTERGloria [place]BI [id number] [address] [place] HISTORY PHYSICALon 3 HISTORY PHYSICAL HNO ID: [id number] Author: Dwain Mcintosh APRN.CLAIM EXAMINER Service: ? Author Type: Nurse Practitioner Type: HANDP Filed: 08/30/2023 11:30 AM Note Text: HISTORY AND PHYSICAL EXAMINATION SERVICE DATE: 08/29/2023 SERVICE TIME: 7:41 AM PRIMARY CARE PHYSICIAN: Merline Fuller MD REASON FOR VISIT: Ronnie Abebe is a 73 year old male who is scheduled for RIGHT ROBOTIC ASSISTED TOTAL KNEE ARTHROPLASTY on 09/04/2023 at [facility] at the request of Dr. [...] Pulmonary HTN, Dilated aorta. Negative for DVT/PE, IN, Cardiac surgery or stents. Denies current chest [...] tests revi (more content not included)... Normal [facility] Iron and Iron binding capaci ty panelon 08-29-2023 Iron [Mass/Vol] 43 ug/dL 41 - 186 ug/dL [facility] Iron binding capacity [Mass/Vol] 308 ug/dL 232 - 386 ug/dL [facility] Iron/TIBC [Molar ratio] 14.0 % Low 15.0 - 57.0 % [facility] Iron [Mass/Vol] 43 ug/dL Normal 41-186 [facility] Comment on above: Order Comment: Speci men Type: BLOOD SPECIMENOrdering Facility: [facility] Address: [address] [place] [address] Performed By: #### 2 4321-2, 82127-7, 2276-01 ####[facility] LABIA [id number] [place] [address] [place] Iron binding capacity [Mass/Vol] 308 ug/dL Normal 232-386 [facility] Comment on above: Order Comment: Speci men Type: BLOOD SPECIMENOrdering Facility: [facility] Address: [address] [place] [address] Performed By: #### 2 4321-2, 24873-1, 2276-01 ####[facility] LABCLIA [id number] [place] [address] [place] Iron/TIBC [Molar ratio] 14.0 % Low 15.0-57.0 [facility] Comment on above: Order Comment: Speci men Type: BLOOD SPECIMENOrdering Facility: [facility] Address: [address] [place] [address] Performed By: #### 2 4321-2, 64689-0, 2276-4 ####[facility] LABCLIA [id number] [place] [address] [place] TYPE AND SCREEN,30 DAYon ABO A Normal [facility] Comment on above: Order Comment: Speci men Type: BLOOD SPECIMENOrdering Facility: [facility] Address: [address] [place] [address] Performed By: #### T SCR30 ####[facility] BLOOD BANKCLIA [id number] [place] [address] [place] HISTORICAL AB SCR STATUS Negative Normal [facility] Comment on above: Order Comment: Speci men Type: BLOOD SPECIMENOrdering Facility: [facility] Address: [address] [place] [address] Performed By: #### T SCR30 ####[facility] BLOOD BANKCLIA [id number] [place] [address] [place] Rh Nom (Bld) Positive Normal [facility] Comment on above: Order Comment: Speci men Type: BLOOD SPECIMENOrdering Facility: [facility] Address: [address] [place] [address] Performed By: #### T SCR30 ####[facility] BLOOD BANKIA [id number] [place] [address] [place] XR KNEE 4V AP/PA [...] RIGHT KNEE SEVERE IN THE MEDIAL COMPARTMENT Daycare Assistant: [facility] Transcribe Date/Time: Aug 29 2023 9:43A Dictated by : ADOLFO MAYNARD MD This examination was interpreted and the report reviewed and electronically signed by: ADOLFO MAYNARD MD on Aug 29 2023 9:44AM EST [id number] Normal [facility] XR KNEE GENERAL 4V AP BOTH/P A BOTH/LAT/MERC RIGHTferny 08-29-2023 [facility] Charissa 08-21-2023 CNPN Telephone (ORTHMN) RONNIE ABEBE ([id number]) 1950 M Date Time Provider Department 08/21/23 [...] min Stress: No Stress Concern Present (08/21/2023) [employer] [place] [facility] [employer] - Occupational Stress Questionnaire Feeling of Stress : Only a little Social Connections: Socially Integrated (08/21/2023) Social Connection and Isolation Panel [NHANES] Frequency of Communication with Friends and Family: More than three times a week Frequency of Social Gatherings with Friends and Family: Once a week Attends Religion Services: 1 to 4 times per year [...] Year: No Utilities: Not At Risk (08/21/2023) [facility] Utilities Threatened with loss of utilities: No Area Deprivation Index: Medium Risk (04/29/2023) Area Deprivation Index National Score (1-100), lower number is lower risk: 73 State Score (1-10), lower number is lower risk: 6 Data from: https://www.neighborhoodatla .medicine.[facility]/. Last address used for calculation: [address] [place] [address] [address] Equipment: Do you currently use [...] joint re (more content not included)... Normal [facility] CNOVon 06-07-2023 CNOV Office Visit (ORTHMN ) RONNIE ABEBE ([id number]) 1950 [place] Date Time Provider Department 06/07/23 10:00 AM GARCIA, LUMA M ORTHMN During your visit today, we recorded [...] Last 180 days 05/07/23 Shaji Bishop MD, [id number] Primary osteoarthritis of left knee, Admission (Discharged) [...] 05/14/2023 Currently Ambulating with: no ambulation aides ===== EXAM: POST OP KNEE ===== Left Post-Operative Knee Ambulates with a: uses: [...] up AND down, and 2+ dorsalis pedis Stability:Anterior/Posterior - Yes, stable and Varus/Valgus- Yes, stable Quad [...] post-operative pain [G89.18] Order(s):CONSULT TO PHYSICAL THERAPY [9032] Order #: [id number]: 1 FUTURE meloxicam (MOBIC) 15 mg tabletTake [...] mouth once (more content not included)... Normal [facility] XR KNEE 3V AP/LAT/MERCHANT L Ton [...] Expected postsurgical appearance. No other significant abnormality. Daycare Assistant: VI Transcribe Date/Time: Jun 07 2023 9:37A Dictated by : JAMEL RICKETTS MD This examination was interpreted and the report reviewed and electronically signed by: JAMEL RICKETTS MD on Jun 07 2023 9:38AM EST [id number] Normal [facility] XR KNEE POST OP 3V AP/LAT/ME RCHANT LEFTon 06-07-2023 [facility] CNPLianna 05-09-2023 CNPN Telephone (ORTHMN) RONNIE ABEBE ([id number]) 1950 M Date Time Provider Department 05/09/23 [...] Status:Closed by NICOLE MEEKS RN on 05/09/23 Normal [facility] ANES POSTPROC EVALon 023 ANES POSTPROC EVAL HNO ID: [id number] Author: Vineet Martinez MD Service: ? Author Type: Anesthesiologist Type: Anesthesia Postprocedure Evaluation Filed: 05/07/2023 2:00 PM Note Text: POST ANESTHESIA EVALUATION NOTE : 1950 Procedure Summary Date: 05/07/23 Room / Location: [address] Anesthesia Start: 822 Anesthesia Stop: 1131 Procedure: [...] May 07, 2023 TIME: 11:58 AM CSN: [id number] Normal [facility] ANES PRE-OPon 05-07-2023 ANES PRE-OP HNO ID: [id number] Author: Vineet Hensley MD Service: ? Author Type: Anesthesiologist Type: Anesthesia Preprocedure Evaluation Filed: 05/07/2023 8:36 AM Note Text: ANESTHESIOLOGY DAY OF SURGERY NOTE : 1950 Procedure Information Anesthesia Start Date/Time: 05/07/23822 Procedure: ROBOTIC ASSISTED TOTAL KNEE ARTHROPLASTY (Left: Knee) Location: [address] [place] Surgeons: Shaji Bishop MD Estimated body mass [...] Time BP 126/82 05/07/23 0746 Pulse 60 05/07/2318 Resp 22 05/07/23817 Temp 36.5 ?C (97.7 ?F) 05/07/23 0552 [...] May 07, 2023 TIME: 8:36 AM CSN: [id number] Normal [facility] BRIEF OP NOTon 05-07-2023 BRIEF OP NOT HNO ID: [id number] Author: Blanco Maza MD Service: Orthopaedic Surgery Author Type: Resident Type: Brief Op Note Filed: 05/07/2023 11:17 AM Note Text: BRIEF OPERATIVE / PROCEDURE NOTE LOG ID: [id number] SURGERY/PROCEDURE DATE: 05/07/2023 INCISION/PROCEDURE START TIME: 9:00 AM INCISION CLOSE/PROCEDURE END TIME: 11:10 AM SURGEON(S)/PROCEDURALIST(S) AND ALLERGIST/MD(S): Surgeon(s) and Role: * Shaji Bishop MD - Primary * Blanco Meyer MD - Resident - Assisting * Malcom Azul MD - Fellow Physician Associate Director Finance: Luma Garcia PA-C Machine Marker: Kaden Raman (), SURGERY/PROCEDURE(S): Left robotic-assisted total knee arthroplasty ANESTHESIA: Spinal FINDINGS: Left knee osteoarthritis ESTIMATED BLOOD LOSS: 100 mls SPECIMENS: None COMPLICATIONS: None CLOSURE TECHNIQUE: Primary PRE-OP/PRE-PROCEDURE DIAGNOSIS: Left knee osteoarthritis POST-OP/POST-PROCEDURE DIAGNOSIS: Same as Preop SIGNATURE: Blanco Maza MD PATIENT NAME: Ronnie Abebe DATE: May 07, 2023 TIME: 11:16 AM Normal [facility] CNDSon 05-07-2023 [facility] HNO ID: [id number] Author: Malcom Azul MD Service: Orthopaedic Surgery [...] The patient was electively admitted to the [facility] on 05/07/2023. Surgery was scheduled and [...] 9:20 AM [facility] A21 JEFF Dowlingdg 06/07/2023 10:00 AM Luma Garcia PA-C ORTHMN [...] May 07, 2023 TIME: 8:12 AM PAGER: [phone] Normal [facility] CONSULTon 05-07-2023 CONSULT HNO ID: [id number] Author: Michelet Hsu MD Service: Anesthesiology Author [...] 10 mL injection (DEFINITY), , INTRAVENOUS, DIRECTED PRNMarleny Andrea, MD sodium chloride 0.9 % (flush) 10 [...] Glucosamine Sulfa (more content not included)... Normal [facility] NURSING PROGon 05-07-2023 NURSING PROG HNO ID: [id number] Author: Raj Jarquin RN Service: ? Author Type: Registered Nurse Type: Nursing Progress Note Filed: 05/07/2023 12:38 PM Note Text: Admission/Transfer Note PATIENT NAME: Ronnie Abebe Patient Location: [place] [address]/M081-06 Room: [place] [address] ([place] [address]) Patient admitted from PACU via bed in stable condition. Actions taken: Patient oriented to room, call light function, prescribed activities, and Patient rights. Patient belongings with patient. This note was completed by: Raj Jarquin [facility] OPERATIVE NOon 05-07-2023 OPERATIVE NO HNO ID: [id number] Author: Shaji Bishop MD Service: Orthopaedic Surgery Author Type: Physician Type: Operative Report Filed: 05/08/2023 8:59 AM Note Text: [place] [address] [place] OPERATIVE NOTE PATIENT NAME: Ronnie Abebe AGE: [age] year old LOG ID: [id number] SURGERY DATE: 05/07/2023 SURGEON AND ASSISTANTS: Surgeon(s) and Role: * Shaji Bishop MD - Primary * Blanco Meyer MD - Resident - Assisting * Malcom Azul MD - Fellow * SANTY Fraser PA-C OPERATION: ROBOTIC LEFT TOTAL KNEE - PRESS-FIT [...] acid was used for blood conservation. The [employer] robot was prepared and draped. The Robotic [...] skin and (more content not included)... Normal [facility] THERAPY NTon 05-07-2023 THERAPY NT HNO ID: [id number] Author: Selina Shaw, PT Service: Physical Therapy Author Type: Physical Therapist Type: Therapy (PT/OT/Speech/Resp) Filed: 05/07/2023 2:48 PM Note Text: Physical Therapy Evaluation SERVICE DATE: 05/07/2023 SERVICE TIME: 1300 to 1423 ROOM: [place] [address] Total Joint Replacement Discharge Readiness: Cleared from [...] Step length decreased, Stance time decreased General Deviations/Observations: Ana María decreased, Step length decreased, Flexed [...] Family Education/Traini (more content not included)... Normal [facility] TYPE + SCREENon 05-07-2023 ABO A Normal [facility] Comment on above: Order Comment: Speci men Type: BLOOD SPECIMENOrdering Facility: [facility] Address: [address] [place] [address] Performed By: #### T SCR ####CC MAIN BLOOD BANKCLIA [id number] [address] HISTORICAL AB SCR STATUS Negative Normal [facility] Comment on above: Order Comment: Speci men Type: BLOOD SPECIMENOrdering Facility: [facility] Address: [address] [place] [address] Performed By: #### T SCR ####CC MAIN BLOOD BANKCLIA [id number] [address] [place] Rh Nom (Bld) Positive Normal [facility] Comment on above: Order Comment: Speci men Type: BLOOD SPECIMENOrdering Facility: [facility] Address: [address] [place] [address] Performed By: #### T SCR ####CC MAIN BLOOD BANKCLIA [id number] [address] [place] TYPE AND SCREEN EXPIRATION 05/10/2023 23:59 Normal [facility] Comment on above: Order Comment: Speci men Type: BLOOD SPECIMENOrdering Facility: [facility] Address: [address] [place] [address] Performed By: #### T SCR ####CC MAIN BLOOD BANKCLIA [id number] [address] [place] CNPNon 05-06-2023 CNPN Telephone ([facility]) RONNIE ABEBE ([id number]) 1950 M Date Time Provider Department 05/06/23 NICOLE MEEKS During your visit today, we recorded the following information about you: Nicole Meeks RN 05/06/2023 3:29 PM Signed Spoke with patient and informed them of arrival time of 5:00am for surgery tomorrow with Dr. Bishop. Requested patient to report to [facility] at that time. Reminded patient to [...] by NICOLE MEEKS RN on 05/06/23 Normal [facility] ECHOon 04-30-2023 Echocardiography Echocardiography Rep ort: Transthoracic Echo [facility] J35 Date of service: 04/30/2023 11:14:08 AM [employer]ASKET[employer]ALL COACH Ordering physician: VALERIA FARMER Indication: Pre Op [...] a prior CC echocardiographic exam for comparison. * * * Final * * * CC [employer] Image : [id number] Normal [facility] Albumin SerPl-ncon 023 Albumin [Mass/Vol] 4.2 g/dL Normal 3.9-4.9 [facility] Comment on above: Order Comment: Speci men Type: BLOOD SPECIMENOrdering Facility: [facility] Address: [address] [place] [address] Performed By: #### 2 4323-8, 1751-7, 57231-3, 2276-4 ####[facility] [id number] [place] [address] [place] CBC W Auto Differential pane l (Bld)on 04-29-2023 Basophils (Bld) [#/Vol] 0.05 10*3/uL Normal <0.11 [facility] Comment on above: Order Comment: Speci men Type: BLOOD SPECIMENOrdering Facility: [facility] Address: [address] [address] Performed By: #### 5 7021-8, 55669-4 ####[facility] [id number] [place] [address] [place] Basophils/100 WBC (Bld) 0.5 % Normal [facility] Comment on above: Order Comment: Speci men Type: BLOOD SPECIMENOrdering Facility: [facility] Address: [address] Performed By: #### 5 7021-8, 51411-2 ####[facility] LABCLIA [id number] [place] [address] [place] Differential cell count method Nom (Bld) Auto Normal [facility] Comment on above: Order Comment: Speci men Type: BLOOD SPECIMENOrdering Facility: [facility] Address: [address] Performed By: #### 5 7021-8, 34680-5 ####[facility] LABCLIA [id number] [place] [address] [place] Eosinophils (Bld) [#/Vol] 0.17 10*3/uL Normal <0.46 [facility] Comment on above: Order Comment: Speci men Type: BLOOD SPECIMENOrdering Facility: [facility] Address: [address] Performed By: #### 5 7021-8, 92077-7 ####[facility] LABCLIA [id number] [place] [address] [place] Eosinophils/100 WBC (Bld) 1.8 % Normal [facility] Comment on above: Order Comment: Speci men Type: BLOOD SPECIMENOrdering Facility: [facility] Address: [address] [place], [place] [address] Performed By: #### 5 7021-8, 28388-6 ####[facility] LABCLIA [id number] [place] [address] [place] Erythrocyte distribution width (RBC) [Ratio] 12.8 % Normal 11.5-15.0 [facility] Comment on above: Order Comment: Speci men Type: BLOOD SPECIMENOrdering Facility: [facility] Address: [address] Performed By: #### 5 7021-8, 47354-9 ####[facility] LABIA [id number] [place] [address] [place] Hematocrit (Bld) [Volume fraction] 44.8 % Normal 39.0-51.0 [facility] Comment on above: Order Comment: Speci men Type: BLOOD SPECIMENOrdering Facility: [facility] Address: [address] Performed By: #### 5 7021-8, 58745-5 ####[facility] LABIA [id number] [place] [address] [place] Hemoglobin (Bld) [Mass/Vol] 14.1 g/dL Normal 13.0-17.0 [facility] Comment on above: Order Comment: Speci men Type: BLOOD SPECIMENOrdering Facility: [facility] Address: [address] [place], [place] [address] Performed By: #### 5 7021-8, 10461-8 ####[facility] [id number] [place] [address] [place] Immature granulocytes (Bld) [#/Vol] 0.05 10*3/uL Normal <0.10 [facility] Comment on above: Order Comment: Speci men Type: BLOOD SPECIMENOrdering Facility: [facility] Address: [address] [place] [address] Performed By: #### 5 7021-8, 63332-1 ####[facility] LABIA [id number] [place] [address] [place] Immature granulocytes/100 WBC (Bld) 0.5 % Normal [facility] Comment on above: Order Comment: Speci men Type: BLOOD SPECIMENOrdering Facility: [facility] Address: [address] [place] [address] Performed By: #### 5 7021-8, 02666-2 ####[facility] LABIA [id number] [place] [address] [place] Lymphocytes (Bld) [#/Vol] 2.21 10*3/uL Normal 1.00-4.00 [facility] Comment on above: Order Comment: Speci men Type: BLOOD SPECIMENOrdering Facility: [facility] Address: [address] [place] [address] Performed By: #### 5 7021-8, 49241-0 ####[facility] LABCLIA [id number] [address] [place] Lymphocytes/100 WBC (Bld) 23.9 % Normal [facility] Comment on above: Order Comment: Speci men Type: BLOOD SPECIMENOrdering Facility: [facility] Address: [address] [place] [address] Performed By: #### 5 7021-8, 69343-5 ####[facility] LABCLIA [id number] [address] [place] MCH (RBC) [Entitic mass] 32.3 pg Normal 26.0-34.0 [facility] Comment on above: Order Comment: Speci men Type: BLOOD SPECIMENOrdering Facility: [facility] Address: [address] [place], [place] [address] Performed By: #### 5 7021-8, 94698-6 ####[facility] LABCLIA [id number] [place] [address] [place] MCHC (RBC) [Mass/Vol] 31.5 g/dL Normal 30.5-36.0 [facility] Comment on above: Order Comment: Speci men Type: BLOOD SPECIMENOrdering Facility: [facility] Address: [address] [place], [place] [address] Performed By: #### 5 7021-8, 76275-9 ####[facility] LABCLIA [id number] [place] [address] [place] MCV (RBC) [Entitic vol] 102.5 fL High 80.0-100.0 [facility] Comment on above: Order Comment: Speci men Type: BLOOD SPECIMENOrdering Facility: [facility] Address: [address] [place], [place] [address] Performed By: #### 5 7021-8, 39347-6 ####[facility] LABCLIA [id number] [place] [address] [place] Monocytes (Bld) [#/Vol] 0.95 10*3/uL High <0.87 [facility] Comment on above: Order Comment: Speci men Type: BLOOD SPECIMENOrdering Facility: [facility] Address: [address] [place] [address] Performed By: #### 5 7021-8, 57250-3 ####[facility] LABCLIA [id number] [place] [address] [place] Monocytes/100 WBC (Bld) 10.3 % Normal [facility] Comment on above: Order Comment: Speci men Type: BLOOD SPECIMENOrdering Facility: [facility] Address: [address] [place], [place] [address] Performed By: #### 5 7021-8, 73192-6 ####[facility] LABCLIA [id number] [place] [address] [place] Neutrophils (Bld) [#/Vol] 5.80 10*3/uL Normal 1.45-7.50 [facility] Comment on above: Order Comment: Speci men Type: BLOOD SPECIMENOrdering Facility: [facility] Address: [address] [place], [place] [address] Performed By: #### 5 7021-8, 47370-6 ####[facility] LABCLIA [id number] [place] [address] [place] Neutrophils/100 WBC (Bld) 63.0 % Normal [facility] Comment on above: Order Comment: Speci men Type: BLOOD SPECIMENOrdering Facility: [facility] Address: [address] [place] [address] Performed By: #### 5 7021-8, 71239-0 ####[facility] LABIA [id number] [place] [address] [place] Nucleated RBC (Bld) [#/Vol] 10*3/uL Normal <0.01 [facility] Comment on above: Order Comment: Speci men Type: BLOOD SPECIMENOrdering Facility: [facility] Address: [address] Performed By: #### 5 7021-8, 70605-0 ####[facility] [id number] [place] [address] [place] Nucleated RBC/100 WBC (Bld) [Ratio] 0.0 /100 WBC Normal [facility] Comment on above: Order Comment: Speci men Type: BLOOD SPECIMENOrdering Facility: [facility] Address: [address] Performed By: #### 5 7021-8, 16354-9 ####[facility] [id number] [place] [address] [place] Platelet mean volume (Bld) [Entitic vol] 11.1 fL Normal 9.0-12.7 [facility] Comment on above: Order Comment: Speci men Type: BLOOD SPECIMENOrdering Facility: [facility] Address: [address] [place] [address] Performed By: #### 5 7021-8, 05450-6 ####[facility] [id number] [place] [address] [place] Platelets (Bld) [#/Vol] 272 10*3/uL Normal 150-400 [facility] Comment on above: Order Comment: Speci men Type: BLOOD SPECIMENOrdering Facility: [facility] Address: [address] Performed By: #### 5 7021-8, 84341-5 ####[facility] LABCLIA [id number] [place] [address] [place] RBC (Bld) [#/Vol] 4.37 10*6/uL Normal 4.20-6.00 [facility] Comment on above: Order Comment: Speci men Type: BLOOD SPECIMENOrdering Facility: [facility] Address: [address] [place] [address] Performed By: #### 5 7021-8, 43984-3 ####[facility] LABCLIA [id number] [place] [address] [place] WBC (Bld) [#/Vol] 9.23 10*3/uL Normal 3.70-11.00 [facility] Comment on above: Order Comment: Speci men Type: BLOOD SPECIMENOrdering Facility: [facility] Address: [address] [place] [address] Performed By: #### 5 7021-8, 44186-3 ####[facility] LABCLIA [id number] [address] [place] CNOVon 04-29-2023 CNOV Office Visit (ORTHMN ) RONNIE ABEBE ([id number]) 1950 M Date Time Provider Department 04/29/23 10:00 AM SHAJI BISHOP During your visit today, [...] Joint Ar (more content not included)... Normal [facility] CT KNEE WO IVCON LEFTon 04-20 [facility] CT KNEE WO IVCON LTon 2022 CT KNEE WO IVCON LT * * *Final Report* * * DATE OF EXAM: Apr 29 2023 2:25PM [facility] 0083 - CT KNEE WO IVCON LT [...] is no unexpected acute or aggressive abnormality. Daycare Assistant: PSCJacob Transcribe Date/Time: Apr 29 2023 2:31P Dictated by : OSMAR SEPINOZA MD This examination was interpreted and the report reviewed and electronically signed by: OSMAR ESPINOZA MD on Apr 29 2023 2:34PM EST [id number] Normal [facility] Comprehensive metabolic 2000 panelon 04-29-2023 Albumin [Mass/Vol] 4.3 g/dL Normal 3.9-4.9 [facility] Comment on above: Order Comment: Speci men Type: BLOOD SPECIMENOrdering Facility: [facility] Address: [address] [place] [address] Performed By: #### 2 4323-8, 1751-7, 95315-7, 2276-4 ####[facility] LABIA [id number] [address] STATES OF [facility] ALP [Catalytic activity/Vol] 73 U/L Normal 38-113 [facility] Comment on above: Order Comment: Speci men Type: BLOOD SPECIMENOrdering Facility: [facility] Address: [address] [place] [address] Performed By: #### 2 4323-8, 1751-7, 84317-7, 2276-4 ####[facility] LABCLIA [id number] [address] [place] ALT [Catalytic activity/Vol] 23 U/L Normal 10-54 [facility] Comment on above: Order Comment: Speci men Type: BLOOD SPECIMENOrdering Facility: [facility] Address: [address] [address] Performed By: #### 2 4323-8, 1751-7, 18133-2, 6-4 ####[facility] LABCLIA [id number] [place] [address] [place] Anion gap [Moles/Vol] 16 mmol/L Normal 9-18 [facility] Comment on above: Order Comment: Speci men Type: BLOOD SPECIMENOrdering Facility: [facility] Address: [address] [place] [address] Performed By: #### 2 4323-8, 1750-7, 21228-1, 2275-4 ####[facility] LABIA [id number] [place] [address] [place] AST [Catalytic activity/Vol] 24 U/L Normal 14-40 [facility] Comment on above: Order Comment: Speci men Type: BLOOD SPECIMENOrdering Facility: [facility] Address: [facility] [facility] [address] [place] [address] Performed By: #### 2 4323-8, 1750-7, 57099-5, 2275-4 ####[facility] LABIA [id number] [place] [address] [place] Bilirubin [Mass/Vol] 0.6 mg/dL Normal 0.2-1.3 [facility] Comment on above: Order Comment: Speci men Type: BLOOD SPECIMENOrdering Facility: [facility] Address: [address] [place] [address] [address] Performed By: #### 2 4323-8, 1750-7, 84494-1, 2275-4 ####[facility] LABCLIA [id number] [place] [address] [place] Calcium [Mass/Vol] 9.3 mg/dL Normal 8.5-10.2 [facility] Comment on above: Order Comment: Speci men Type: BLOOD SPECIMENOrdering Facility: [facility] Address: [address] [place] [address] [place] [place] [address] Performed By: #### 2 4323-8, 1750-7, 24959-9, 2275-4 ####[facility] LABCLIA [id number] [place] [address] [place] Chloride [Moles/Vol] 104 mmol/L Normal 97-105 [facility] Comment on above: Order Comment: Speci men Type: BLOOD SPECIMENOrdering Facility: [facility] Address: [address] [place] [address] Performed By: #### 2 4323-8, 7, 80685-3, 2275-4 ####[facility] LABCLIA [id number] [place] [address] [place] CO2 [Moles/Vol] 17 mmol/L Low 22-30 [facility] Comment on above: Order Comment: Speci men Type: BLOOD SPECIMENOrdering Facility: [facility] Address: [address] [place] [address] Performed By: #### 2 4323-8, 1750-7, 49474-9, 2275-4 ####[facility] LABCLIA [id number] [place] [address] [place] Creatinine [Mass/Vol] 1.05 mg/dL Normal 0.73-1.22 [facility] Comment on above: Order Comment: Speci men Type: BLOOD SPECIMENOrdering Facility: [facility] Address: [address] [place], [place] [address] Performed By: #### 2 4323-8, 1750-7, 32713-2, 2275-4 ####[facility] LABCLIA [id number] [place] [address] [place] ESTIMATED GLOMERULAR FILTRATION RATE 75 mL/min/1.73m??? Normal >=60 [facility] Comment on above: Order Comment: Celina carmona Type: BLOOD SPECIMENOrdering Facility: [facility] Address: [address] [place], [place] [address] Result Comment: Sarah mated Glomerular Filtration Rate [...] actual GFR. Performed By: #### 2 4323-8, 1751-7, 04023-3, 6-4 ####[facility] LABCLIA [id number] [place] [address] [place] Glucose [Mass/Vol] 84 mg/dL Normal 74-99 [facility] Comment on above: Order Comment: Celina carmona Type: BLOOD SPECIMENOrdering Facility: [facility] Address: [address] [place], [place] [address] Result Comment: The [place] Diabetes Association (ADA) provides guidance for cutoff [...] Standards of Medical Care in Diabetes 2016, [place] Diabetes Association. Diabetes Care. 2016.39(Suppl 1). Performed By: #### 2 4323-8, 1751-7, 03308-2, 6-4 ####[facility] LABCLIA [id number] [place] [address] [place] Potassium [Moles/Vol] 5.2 mmol/L High 3.7-5.1 [facility] Comment on above: Order Comment: Speci men Type: BLOOD SPECIMENOrdering Facility: [facility] Address: [address] [place] [address] Performed By: #### 2 4323-8, 1751-7, 78776-7, 6-4 ####[facility] LABCLIA [id number] [place] [address] [place] Protein [Mass/Vol] 7.3 g/dL Normal 6.3-8.0 [facility] Comment on above: Order Comment: Speci men Type: BLOOD SPECIMENOrdering Facility: [facility] Address: [address] [place] [address] Performed By: #### 2 4323-8, 1750-7, 30479-6, 6-4 ####[facility] LABIA [id number] [place] [address] [place] Sodium [Moles/Vol] 137 mmol/L Normal 136-144 [facility] Comment on above: Order Comment: Speci men Type: BLOOD SPECIMENOrdering Facility: [facility] Address: [address] [place] [address] Performed By: #### 2 4323-8, 1750-7, 37800-8, 6-4 ####[facility] LABIA [id number] [place] [address] [place] Urea nitrogen [Mass/Vol] 23 mg/dL Normal 9-24 [facility] Comment on above: Order Comment: Speci men Type: BLOOD SPECIMENOrdering Facility: [facility] Address: [address] [place] [address] Performed By: #### 2 4323-8, 1750-7, 34105-5, 6-4 ####[facility] LABCLIA [id number] [place] [address] [place] ECG COMPLETEon 04-29-2023 ECG COMPLETE Ventricular Rate : 5 6 BPM Atrial Rate : 56 BPM P-R Interval : 164 ms QRS Duration : 82 ms Q-T Interval : 468 ms QTC Calculation(Bazett) : 451 ms Calculated P [place] : 37 degrees Calculated R [place] : -8 degrees Calculated T [place] : 9 degrees SINUS BRADYCARDIA WITH FREQUENT PREMATURE VENTRICULAR COMPLEXES IN A PATTERN OF BIGEMINY * ABNORMAL ECG Confirmed by FAVIAN MALLORY MD ([id number]) on 05/01/2023 10:45:18 AM NAME : RONNIE ABEBE PID : [id number] : 1950 Gender : Male Race : ORD : [id number] Procedure Date : Apr 29 2023 11:56:39 Edit Date : May 01 2023 10:45:24 Diagnosis: SINUS BRADYCARDIA WITH FREQUENT PREMATURE VENTRICULAR COMPLEXES IN A PATTERN OF BIGEMINY * ABNORMAL ECG Confirmed by FAVIAN MALLORY MD ([id number]) on 05/01/2023 10:45:18 AM Test Reason : Location : 119 : A17 A17 Overread By : FAVIAN MALLORY MD Edited By : FAVIAN MALLORY MD Referred By : LUMA GARCIA Acquired by : ANTONIO WAKEFIELD [facility] Ferritin SerPl-mCncferny 2022 Ferritin [Mass/Vol] 346.0 ng/mL Normal 30.3-565.7 [facility] Comment on above: Order Comment: Speci men Type: BLOOD SPECIMENOrdering Facility: [facility] Address: [address] [place], [place] [address] Performed By: #### 2 4323-8, 1751-7, 52143-8, 2276-4 ####[facility] LABCLIA [id number] [facility] [id number] [address] [place] Folate SerPl-mCncon 04-29-20 23 Folate [Mass/Vol] ng/mL Normal >4.7 [facility] Comment on above: Order Comment: Speci men Type: BLOOD SPECIMENOrdering Facility: [facility] Address: [address] [place] [address] Result Comment: A re sult of > 20 ng/mL is not necessarily indicative of a pathologic or treatable condition: it reflects a limitation of the test methodology. Assay reference range: 4.8 to 24.2 ng/mL. Suitable for detection of folate deficiency. Reference: Folate III (Folate III) [package insert V 1.0 Tajik]. [facility], [place], [place]: August 2015. Performed By: #### 2 132-9, 2284-8 ####[facility] LABCLIA [id number] [facility] [id number] [place] [address] [place] HISTORY PHYSICALon HISTORY PHYSICAL HNO ID: [id number] Author: Ashleigh Serra MD Service: ? Author [...] fevers. Neuro: No history of TIA's, stroke, OUTPATIENT PROGRAM COORDINATOR tumor, impaired sensorium, hemiplegia, paraplegia or quadraplegia. No neurological symptoms or problems. Respiratory: No history of current cough or dyspnea, or pneumonia in the past 6 weeks. No history of respiratory/pulmonary symptoms or problems. 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 Normal [facility] Iron and Iron binding capaci ty panelon 04-29-2023 Iron [Mass/Vol] 92 ug/dL Normal 41-186 [facility] Comment on above: Order Comment: Speci men Type: BLOOD SPECIMENOrdering Facility: [facility] Address: [address] [place] [address] Performed By: #### 2 4323-8, 1751-7, 33773-5, 6-4 ####[facility] LABCLIA [id number] [place] [address] [place] Iron binding capacity [Mass/Vol] 295 ug/dL Normal 232-386 [facility] Comment on above: Order Comment: Speci men Type: BLOOD SPECIMENOrdering Facility: [facility] Address: [address] [place] [address] Performed By: #### 2 4323-8, 1751-7, 35962-8, 6-4 ####[facility] LABCLIA [id number] [place] [address] [place] Iron/TIBC [Molar ratio] 31.2 % Normal 15.0-57.0 [facility] Comment on above: Order Comment: Speci men Type: BLOOD SPECIMENOrdering Facility: [facility] Address: [address] [place] [address] Performed By: #### 2 4323-8, 1751-7, 83874-8, 2276-4 ####[facility] LABCLIA [id number] [place] [address] [place] Retics #on 04-29-2023 Reticulocytes (Bld) [#/Vol] 0.86664 10*3/uL Normal 0.018-0.100 [facility] Comment on above: Order Comment: Speci men Type: BLOOD SPECIMENOrdering Facility: [facility] Address: [address] [place] [address] Performed By: #### 5 7021-8, 75593-4 ####[facility] LABIA [id number] [place] [address] [place] Reticulocytes (Bld) [#/Vol]o n 04-29-2023 Reticulocytes/100 RBC (Bld) 2.0 % Normal 0.4-2.0 [facility] Comment on above: Order Comment: Speci men Type: BLOOD SPECIMENOrdering Facility: [facility] Address: [address] [place] [address] Performed By: #### 5 7021-8, 41165-3 ####[facility] LABIA [id number] [place] [address] [place] Vit B12 SerPl-ncon 023 Cobalamin (Vitamin B12) [Mass/Vol] 409 pg/mL Normal 232-1245 [facility] Comment on above: Order Comment: Speci men Type: BLOOD SPECIMENOrdering Facility: [facility] Address: [address] [place] [address] Performed By: #### 2 132-9, 2284-8 ####[facility] LABCLIA [id number] [facility] [id number] [place], [place] [address] [place] CBC AUTO DIFFon 02-26-2023 BASO # 0.1 103/ul Normal 0.0-0.1 [facility] Comment on above: Performed By: #### C BC #### [facility] [address] [address] [address] Luci Christian Basophils/100 WBC (Bld) 0.5 % Normal 0.2-2.0 [facility] Comment on above: Performed By: #### C BC #### [facility] [address] [address] [address] Luci Christian EO # 0.3 103/ul Normal 0.0-0.7 [facility] Comment on above: Performed By: #### C BC #### [facility] [address] [address] [address] Luci Christian Eosinophils/100 WBC (Bld) 3.5 % Normal 0.9-7.0 [facility] Comment on above: Performed By: #### C BC #### [facility] [address] [address] [address] Luci Christian Erythrocyte distribution width (RBC) [Ratio] 12.6 % Normal 11.0-15.0 [facility] Comment on above: Performed By: #### C BC #### [facility] [address] [place] [address] Dr. Luci Christian Hematocrit (Bld) [Volume fraction] 46.5 % Normal 42.0-54.0 [facility] Comment on above: Performed By: #### C BC #### [facility] [address] [address] [address] Luci Christian Hemoglobin (Bld) [Mass/Vol] 14.9 g/dL Normal 14.0-18.0 [facility] Comment on above: Performed By: #### C BC #### [facility] [address] [address] [address] Luci Christian IG # 0.06 10e3/ul Critically high 0.00-0.03 [facility] Comment on above: Performed By: #### C BC #### [facility] [address] [place] [address] [address] Luci Christian IG % 0.7 % Critically high 0.0-0.5 [facility] Comment on above: Performed By: #### C BC #### [facility] [address] [place] [address] Dr. Luci Christian LYMPH # 2.4 103/ul Normal 1.2-3.8 [facility] Comment on above: Performed By: #### C BC #### [facility] [address] [place] [address] Dr. Luci Christian Lymphocytes/100 WBC (Bld) 26.4 % Normal 20.5-60.0 [facility] Comment on above: Performed By: #### C BC #### [facility] [address] [place] [address] Dr. Luci Christian MANUAL DIFF REQ NO Normal [facility] Comment on above: Performed By: #### C BC #### [facility] [address] [place] [address] Dr. Luci Christian MCH (RBC) [Entitic mass] 32.6 pg Normal 25.9-34.0 [facility] [facility] [place] Comment on above: Performed By: #### C BC #### [facility] [address] [place] [address] Dr. Luci Christian MCHC (RBC) [Mass/Vol] 32.0 g/dL Normal 29.9-35.2 [facility] Comment on above: Performed By: #### C BC #### [facility] [address] [place] [address] Dr. Luci Christian MCV (RBC) [Entitic vol] 101.8 fL Critically high 80.0-94.0 [facility] Comment on above: Performed By: #### C BC #### [facility] [address] [place] [address] Dr. Luci Christian MONO # 1.0 103/ul Critically high 0.3-0.8 [facility] Comment on above: Performed By: #### C BC #### [facility] [address] [address] [address] Luci Christian Monocytes/100 WBC (Bld) 10.6 % Normal 1.7-12.0 [facility] [place] Comment on above: Performed By: #### C BC #### [facility] [address] [address] [address] Luci Christian NEUT # 5.4 103/ul Normal 1.4-6.5 [facility] Comment on above: Performed By: #### C BC #### [facility] [address] [place] [address] Dr. Luci Christian Neutrophils/100 WBC (Bld) 58.3 % Normal 43.0-75.0 [facility] Comment on above: Performed By: #### C BC #### [facility] [address] [place] [address] Dr. Luci Christian Platelet mean volume (Bld) [Entitic vol] 10.3 fL Normal 9.5-13.5 [facility] Comment on above: Performed By: #### C BC #### [facility] [address] [place] [address] Dr. Luci Christian PLT 273 103/ul Normal 150-450 [facility] Comment on above: Performed By: #### C BC #### [facility] [address] [place] [address] Dr. Luci Christian RBC 4.57 106/ul Critically low 4.70-6.10 [facility] Comment on above: Performed By: #### C BC #### [facility] [address] [place] [address] Dr. Luci Christian WBC 9.2 103/ul Normal 4.0-11.0 [facility] Comment on above: Performed By: #### C BC #### [facility] [address] [place] [address] Dr. Luci Christian FREE THYROXINE INDEX T7on FTI 2.31 Normal 1.30-4.50 [facility] Comment on above: Performed By: #### T 7, LIPID, CMP, TSH #### [facility] [address] [address] [address] Luci Christian T3U 34.0 % Normal 33.0-40.0 [facility] Comment on above: Performed By: #### T 7, LIPID, CMP, TSH #### [facility] [address] [address] [address] Luci Christian T4 [Mass/Vol] 6.80 ug/dL Normal 4.50-12.10 [facility] Comment on above: Performed By: #### T 7, LIPID, CMP, TSH #### [facility] [address] [address] [address] Luci Christian LIPID PROFILEon 02-26-2023 CHOL-HDL RATIO NORM SEE BELOW Normal [facility] Comment on above: Result Comment: 3.3 - 4.4 LOW RISK 4.4 - 7.1 AVERAGE RISK 7.1 - 11.0 MODERATE RISK >11.0 HIGH RISK Performed By: #### T 7, LIPID, CMP, TSH #### [facility] [address] [address] [address] Luci Christian Cholesterol [Mass/Vol] 165 mg/dL Normal <=200 [facility] Comment on above: Performed By: #### T 7, LIPID, CMP, TSH #### [facility] [address] [address] [address] Luci Christian Cholesterol in HDL [Mass/Vol] 56 mg/dL Normal 40-60 [facility] Comment on above: Performed By: #### T 7, LIPID, CMP, TSH #### [facility] [address] [address] [address] Luci Christian Cholesterol in LDL [Mass/Vol] 66.4 mg/dL Normal [facility] Comment on above: Performed By: #### T 7, LIPID, CMP, TSH #### [facility] [address] [address] [address] Luci Christian Cholesterol.total/ Cholesterol in HDL [Mass ratio] 2.9 {ratio} Normal [facility] Comment on above: Performed By: #### T 7, LIPID, CMP, TSH #### [facility] [address] [address] [address] Luci Christian HDL NORMAL > or = 60 mg/dl - LO W CARDIOVASCULAR RISK <40 mg/dl - HIGH CARDIOVASCULAR RISK Normal [facility] Comment on above: Performed By: #### T 7, LIPID, CMP, TSH #### [facility] [address] [address] [address] Luci Christian LDL CALC NORMAL SEE BELOW Normal [facility] Comment on above: Result Comment: <100 mg/dl OPTIMAL 100 - 129 mg/dl NEAR OR ABOVE OPTIMAL 130 - 159 mg/dl BORDERLINE HIGH 160 - 189 mg/dl HIGH >190 mg/dl VERY HIGH Performed By: #### T 7, LIPID, CMP, TSH #### [facility] [address] [address] [address] Luci Christian Triglyceride [Mass/Vol] 213 mg/dL Critically high <=150 [facility] Comment on above: Performed By: #### T 7, LIPID, CMP, TSH #### [facility] [address] [address] [address] Luci Christian VLDL CALC 42.6 mg/dL Normal [facility] Comment on above: Performed By: #### T 7, LIPID, CMP, TSH #### [facility] [address] [address] [address] Luci Christian OCC BLD IMMUNO SCREENon OCCULT BLOOD Negative Normal NEGATIVE [facility] Comment on above: Performed By: #### O BSCRN #### [facility] [address] [address] [address] Luci Christian PROF 14(COMP METB)on 023 Albumin [Mass/Vol] 3.7 g/dL Normal 3.4-5.0 [facility] Comment on above: Performed By: #### T 7, LIPID, CMP, TSH #### [facility] [address] [address] [address] Luci Christian Albumin/Globulin [Mass ratio] 0.8 {ratio} Normal [facility] Comment on above: Performed By: #### T 7, LIPID, CMP, TSH #### [facility] [address] [address] [address] Luci Christian ALP [Catalytic activity/Vol] 70 U/L Normal 46-116 [facility] Comment on above: Performed By: #### T 7, LIPID, CMP, TSH #### [facility] [address] [address] [address] Luci Christian ALT [Catalytic activity/Vol] 36 U/L Normal 16-63 [facility] Comment on above: Performed By: #### T 7, LIPID, CMP, TSH #### [facility] [address] [address] [address] Luci Christian Anion gap [Moles/Vol] 12.9 mmol/L Normal [facility] Comment on above: Performed By: #### T 7, LIPID, CMP, TSH #### [facility] [address] [address] [address] Luci Christian AST [Catalytic activity/Vol] 27 U/L Normal 15-37 [facility] Comment on above: Performed By: #### T 7, LIPID, CMP, TSH #### [facility] [address] [address] [address] Luci Christian Bilirubin [Mass/Vol] 0.6 mg/dL Normal 0.2-1.0 [facility] Comment on above: Performed By: #### T 7, LIPID, CMP, TSH #### [facility] [address] [address] [address] Luci Christian Calcium [Mass/Vol] 9.1 mg/dL Normal 8.5-10.1 [facility] Comment on above: Performed By: #### T 7, LIPID, CMP, TSH #### [facility] [address] [address] [address] Luci Christian Chloride [Moles/Vol] 104 mmol/L Normal 98-107 [facility] Comment on above: Performed By: #### T 7, LIPID, CMP, TSH #### [facility] [address] [address] [address] Luci Christian CO2 [Moles/Vol] 27.9 mmol/L Normal 21.0-32.0 [facility] Comment on above: Performed By: #### T 7, LIPID, CMP, TSH #### [facility] [address] [address] [address] Luci Christian Creatinine [Mass/Vol] 1.02 mg/dL Normal 0.70-1.30 [facility] Comment on above: Performed By: #### T 7, LIPID, CMP, TSH #### [facility] [address] [address] [address] Luci Christian EGFR-AF NAURUAN >60 Normal >=60 [facility] Comment on above: Performed By: #### T 7, LIPID, CMP, TSH #### [facility] [address] [place] [address] Dr. Luci Christian EGFR-NON AF NAURUAN >60 Normal >=60 [facility] Comment on above: Performed By: #### T 7, LIPID, CMP, TSH #### [facility] [address] [place] [address] Dr. Luci Christian Globulin (S) [Mass/Vol] 4.6 g/dL Normal [facility] Comment on above: Performed By: #### T 7, LIPID, CMP, TSH #### [facility] [address] [place] [address] Dr. Luci Christian Glucose [Mass/Vol] 98 mg/dL Normal 74-106 [facility] Comment on above: Performed By: #### T 7, LIPID, CMP, TSH #### [facility] [address] [place] [address] Dr. Luci Christian Potassium [Moles/Vol] 4.8 mmol/L Normal 3.5-5.1 [facility] Comment on above: Performed By: #### T 7, LIPID, CMP, TSH #### [facility] [address] [place] [address] Dr. Luci Christian Protein [Mass/Vol] 8.3 g/dL Critically high 6.4-8.[address] [facility] Comment on above: Performed By: #### T 7, LIPID, CMP, TSH #### [facility] [address] [place] [address] Dr. Luci Christian Sodium [Moles/Vol] 140 mmol/L Normal 136-145 [facility] Comment on above: Performed By: #### T 7, LIPID, CMP, TSH #### [facility] [address] [address] [address] Luci Christian Urea nitrogen [Mass/Vol] 19.0 mg/dL Critically high 7.0-18.0 [facility] Comment on above: Performed By: #### T 7, LIPID, CMP, TSH #### [facility] [address] [address] [address] Luci Christian Urea nitrogen/Creatinin e [Mass ratio] 18.6 mg/mg Normal [facility] Comment on above: Performed By: #### T 7, LIPID, CMP, TSH #### [facility] [address] [address] [address] Luci Christian TSHon 02-26-2023 TSH 1.563 uIU/mL Normal 0.358-3.740 [facility] Comment on above: Performed By: #### T 7, LIPID, CMP, TSH #### [facility] [address] [address] [address] Luci Christian No Panel Informationon 02-01 [facility] Vital Signs Date Time Vital Sign Value Performing Clinician Radha ojeda 08-29-2023 07:27-0500 Body height 185.4 cm Pac 6 Work Phone: [facility] 08-29-2023 07:27-0500 Body temperature 97.9 [degF] Pacc 6 Work Phone: [facility] 08-29-2023 07:27-0500 Body weight 96.34 kg Pacc 6 Work Phone: [facility] 08-29-2023 07:27-0500 Diastolic blood pressure 85 mm[Hg] Pacc 6 Work Phone: [facility] 08-29-2023 07:27-0500 Heart rate 64 /min Pac 6 Work Phone: [facility] 08-29-2023 07:27-0500 Respiratory rate 18 /min Pacc 6 Work Phone: [facility] 08-29-2023 07:27-0500 SaO2% (BldA) [Mass fraction] 100 % Pacc 6 Work Phone: [facility] 08-29-2023 07:27-0500 Systolic blood pressure 139 mm[Hg] Pacc 6 Work Phone: [facility] 04-29-2023 13:02-0400 Body height 185.4 cm Pacc 8 Work Phone: [facility] 04-29-2023 13:02-0400 Body temperature 97.81 [degF] Pacc 8 Work Phone: [facility] 04-29-2023 13:02-0400 Body weight 97.98 kg Pacc 8 Work Phone: [facility] 04-29-2023 13:02-0400 Diastolic blood pressure 75 mm[Hg] Pacc 8 Work Phone: [facility] 04-29-2023 13:02-0400 Heart rate 61 /min Pacc 8 Work Phone: [facility] 04-29-2023 13:02-0400 SaO2% (BldA) [Mass fraction] 99 % Pacc 8 Work Phone: [facility] 04-29-2023 13:02-0400 Systolic blood pressure 126 mm[Hg] Pacc 8 Work Phone: [facility] 02-01-2023 14:03-0400 Body height 185.4 cm Luma Garcia PA-C Work Phone: [facility] 02-01-2023 14:03-0400 Body weight 96.16 kg Luma Garcia PA-C Work Phone: [facility] Encounters Encounter Date Encounter Type Care Provider Facility Start: 01-27-2025 End: 01-27-2025 ambulatory Espinoza TEJEDA Facility: [facility] Start: 12-17-2024 End: 12-17-2024 ambulatory [facility] Start: 12-17-2024 End: 12-17-2024 ambulatory [facility] Start: 11-19-2024 End: 11-19-2024 ambulatory [facility] Start: 11-19-2024 End: 11-19-2024 ambulatory [facility] Start: 11-12-2024 ambulatory Espinoza TEJEDA Facility:[facility] Start: 04-02-2024 End: 04-02-2024 Patient encounter procedure Shaji Bishop MD Work Phone: Orthopaedics Comment on above: S/P total knee arthr oplasty, right (Primary Dx); Status post left knee replacement Start: 04-02-2024 End: 04-02-2024 ambulatory SHAJI BISHOP Facility:[facility] Start: 04-02-2024 End: 04-02-2024 Subsequent hospital visit by physician Sameer Foreman [facility] Rej Work Phone: Radiology Comment on above: S/P total knee arthr oplasty, right [Z96.651] Start: 10-03-2023 End: 10-03-2023 Patient encounter procedure Luma Garcia PA-C Work Phone: Orthopaedics Comment on above: S/P total knee arthr oplasty, right (Primary Dx) Start: 10-03-2023 End: 10-03-2023 ambulatory LUMA GARCIA Facility:[facility] Start: 09-16-2023 Refill Luma Garcia PA-C Work Phone: Orthopaedics Comment on above: Refill Request Start: 09-09-2023 Telephone encounter Nicole Meeks RN Orthopaedics Comment on above: Post Op Refill Request Start: 09-05-2023 End: 09-05-2023 ambulatory MERLINE FULLER Facility:[facility] Start: 09-04-2023 End: 09-05-2023 ambulatory SHAJI BISHOP Facility:[facility] Start: 08-29-2023 End: 08-29-2023 ambulatory SHAJI BISHOP Facility:[facility] Start: 08-29-2023 End: 08-29-2023 Subsequent hospital visit by physician Avelina 2 Main Qb (I-Stat) Radiology Comment on above: Primary osteoarthrit is of right knee [M17.11] Start: 08-29-2023 Encounter for other preprocedural examination MERLINE FULLER [facility] Start: 08-29-2023 End: 08-29-2023 ambulatory MERLINE FULLER Facility:[facility] Start: 08-29-2023 End: 08-29-2023 Admission to medical center hospital Pac Main 6 [facility] Start: 08-29-2023 End: 08-29-[address] [facility] Main 6 Work Phone: [facility] Work Phone: Start: 08-29-2023 End: 08-29-2023 [facility] Main 6 Work Phone: Pre Anesthesia Comment on above: Pre-operative examin ation (Primary Dx); Primary osteoarthritis of right knee; Chronic pain of right knee; Primary hypertension; Hyperlipidemia, unspecified hyperlipidemia type; Tricuspid valve insufficiency, unspecified etiology; Pulmonary hypertension (HCC); Dilation of aorta (HCC); Gastroesophageal reflux disease, unspecified whether esophagitis present; History of prostate cancer Start: 08-21-2023 Telephone encounter Tresa PHILLIP Orthopaedics Comment on above: Subsorter - O ther Start: 06-10-2023 ambulatory Shaji Bishop MD Work Phone: Orthopaedics Start: 06-07-2023 End: 06-07-2023 Patient encounter procedure Luma Garcia PA-C Work Phone: Orthopaedics Comment on above: S/P total knee arthr oplasty, left (Primary Dx); Acute post-operative pain Start: 06-07-2023 End: 06-07-2023 ambulatory LUMA AGRCIA Facility:[facility] Start: 06-07-2023 End: 06-07-2023 Subsequent hospital visit by physician Megan General Xray A21 Radiology Comment on above: Arthritis of left kn ee [M17.12] Start: 05-09-2023 Telephone encounter Nicole Meeks RN Orthopaedics Comment on above: Post Op Start: 05-07-2023 End: 05-07-2023 Evaluation and management of inpatient MERLINE FULLER Facility:[facility] Start: 05-07-2023 End: 05-07-2023 Evaluation and management of inpatient SHAJI BISHOP Facility:[facility] Start: 05-06-2023 Telephone encounter Nicole Meeks RN Orthopaedics Comment on above: Patient Update (Surg lauren Arrival Time) Start: 05-03-2023 Orders Only Luma Garcia PA-C Work Phone: Orthopaedics Comment on above: Arthritis of left kn ee (Primary Dx) Start: 05-01-2023 ambulatory Dimple Dan RN [facility] Comment on above: Blood Management Start: 04-30-2023 End: 04-30-2023 Orders Only Luma Garcia PA-C Work Phone: Orthopaedics Comment on above: Arthritis of left kn ee (Primary Dx) Start: 04-29-2023 End: 04-29-2023 Subsequent hospital visit by physician Ct 2 Main Qb (I-Stat) Radiology Comment on above: Primary osteoarthrit is of left knee [M17.12] Start: 04-29-2023 End: 04-29-2023 Admission to establishment Pacc Main 8 Work Phone: [facility] Start: 04-29-2023 End: 04-29-2023 Preprocedural examination done Pacc Main 8 Work Phone: [facility] Work Phone: Start: 04-29-2023 Encounter for other preprocedural examination MERLINE FULLER [facility] Start: 04-29-2023 End: 04-29-2023 ambulatory Pac Main 8 Work Phone: Pre Anesthesia Comment on above: Pre-op evaluation (P rimary Dx) Start: 02-26-2023 End: 02-27-[address] MERLINE FULLER . Facility: Start: 02-21-2023 End: 02-21-2023 ambulatory OSMAR NORIEGA Facility: Start: 02-04-2023 ambulatory Dimple Dan RN [facility] Start: 02-01-2023 End: 02-01-2023 Patient encounter procedure Luma Garcia PA-C Work Phone: Orthopaedics Comment on above: Primary osteoarthrit is of left knee (Primary Dx); Primary osteoarthritis of right knee; Anemia, unspecified type Start: 02-01-2023 End: 02-01-2023 Subsequent hospital visit by physician Orth General [...] Comment: Speci men Type: BLOOD SPECIMENOrdering Facility: [facility] Address: [address] [place] [address] Performed By: #### T [id number] ####CC MAIN BLOOD BANKCLIA [id number] [place] [id number] [place] Start: 06-07-2023 Radiologic examinati on knee 3 views Shaji Bishop MD Work Phone: Start: 05-07-2023 Antibody screen MERLINE FULLER Comment on above: Order Comment: Speci men Type: BLOOD SPECIMENOrdering Facility: [facility] Address: [address] [place], [place] [id number] Performed By: #### T SCR ####CC MAIN BLOOD BANKCLIA [id number] [place] [place] [id number] [place] Start: 04-29-2023 Ct lower extremity w /o contrast material Luma Garcia PA-C Work Phone: Start: 02-26-2023 PSA screening OSMAR NORIEGA Comment on above: Performed By: #### P [facility] #### [facility] [address] [place] [address] Dr. Luci Christian Start: 02-01-2023 Radiologic exam knee complete 4/more views Luma Garcia PA-C Work Phone: Plan of Treatment Date Care Activity Detail Author Start: 09-05-2026 [facility] Start: 08-29-2026 [facility] Start: 04-29-2026 DIABETES SCREEN [facility] Start: 04-29-2026 [facility] Start: 06-21-2024 Influenza vaccination Influenz a Vaccine (Season Ended) [facility] Start: 04-29-2024 BP CONTROLLED (<130/80) BP CONTROLLE D (<130/80) [facility] Start: 10-21-2023 Advance Directive Discussion Advance Directive Discussion [facility] Start: 10-21-2023 Behavioral Health Screening Behavioral Health Screening [facility] Start: 08-28-2023 End: 11-27-2023 TYPE AND SCREEN,30 DAY TYPE AND SCREEN,30 DAY Blood Bank Routine Pre-operative examination Expected: 08/28/2023, Expires: 11/27/2023 [facility] Work Phone: Comment on above: Expected: 08/28/2023 , Expires: 11/27/2023 Start: 06-21-2023 Covid-19 Vaccine ( season) Covid-19 Vaccine ( season) [facility] Start: 06-21-2023 Influenza vaccination C [facility] Start: 06-12-2023 Arthrp kne condyle&p latu medial&lat compartments TOTAL KNEE REPLACEMENT Procedures Routine Primary osteoarthritis of right knee Expected: 06/12/2023 [facility] Work Phone: Comment on above: Expected: 06/12/2023 Start: 06-12-2023 End: 08-12-2023 Basic metabolic 2000 panel - Serum or Plasma BASIC METABOLIC PNL Lab Routine Primary osteoarthritis of right knee Expected: 06/12/2023, Expires: 08/12/2023 [facility] Work Phone: Comment on above: Expected: 06/12/2023 , Expires: 08/12/2023 Start: 06-12-2023 End: 08-12-2023 CBC panel - Blood by Automated count CBC Lab Routine Primary osteoarthritis of right knee Expected: 06/12/2023, Expires: 08/12/2023 [facility] Work Phone: Comment on above: Expected: 06/12/2023 , Expires: 08/12/2023 Start: 06-12-2023 End: 08-12-2023 CONFIRM BLOOD TYPE CONFIRM BLOOD TYPE Blood Bank Routine Primary osteoarthritis of right knee Expected: 06/12/2023, Expires: 08/12/2023 [facility] Work Phone: Comment on above: Expected: 06/12/2023 , Expires: 08/12/2023 Start: 06-12-2023 End: 07-09-2024 CT KNEE WO IVCON RIGHT CT KNEE WO IVCON RIGHT Radiology Routine Primary osteoarthritis of right knee Expected: 06/12/2023, Expires: 07/09/2024 [facility] Work Phone: Comment on above: Expected: 06/12/2023 , Expires: 07/09/2024 Start: 06-12-2023 End: 06-10-2024 ECG COMPLETE ECG COMPLETE ECG Routine Primary osteoarthritis of right knee Expected: 06/12/2023, Expires: 06/10/2024 [facility] Work Phone: Comment on above: Expected: 06/12/2023 , Expires: 06/10/2024 Start: 06-12-2023 REFER FOR ADMIT INTERVIEW REFE R FOR ADMIT INTERVIEW Procedures Routine Primary osteoarthritis of right knee Expected: 06/12/2023 [facility] Work Phone: Comment on above: Expected: 06/12/2023 Start: 06-12-2023 End: 08-12-2023 STAPH AUREUS PCR STAPH AUREUS PCR Lab Routine Primary osteoarthritis of right knee Expected: 06/12/2023, Expires: 08/12/2023 [facility] Work Phone: Comment on above: Expected: 06/12/2023 , Expires: 08/12/2023 Start: 06-12-2023 End: 08-12-2023 TYPE AND SCREEN,30 DAY TYPE AND SCREEN,30 DAY Blood Bank Routine Primary osteoarthritis of right knee Expected: 06/12/2023, Expires: 08/12/2023 [facility] Work Phone: Comment on above: Expected: 06/12/2023 , Expires: 08/12/2023 Start: 06-12-2023 End: 07-09-2024 XR KNEE GENERAL 4V AP BOTH/PA BOTH/LAT/MERC RIGHT XR KNEE GENERAL 4V AP BOTH/PA BOTH/LAT/MERC RIGHT Radiology Routine Primary osteoarthritis of right knee Expected: 06/12/2023, Expires: 07/09/2024 [facility] Work Phone: Comment on above: Expected: 06/12/2023 , Expires: 07/09/2024 Start: 06-12-2023 End: 07-09-2024 XR KNEE POST OP 3V AP/LAT/MERCHANT RIGHT XR KNEE POST OP 3V AP/LAT/MERCHANT RIGHT Radiology Routine Primary osteoarthritis of right knee Expected: 06/12/2023, Expires: 07/09/2024 [facility] Work Phone: Comment on above: Expected: 06/12/2023 , Expires: 07/09/2024 Start: 04-30-2023 End: 06-30-2023 Comprehensive metabolic 2000 panel - Serum or Plasma COMP METABOLIC PANEL Lab Routine Arthritis of left knee Expected: 04/30/2023, Expires: 06/30/2023 [facility] Work Phone: Comment on above: Expected: 04/30/2023 , Expires: 06/30/2023 Start: 02-01-2023 End: 04-03-2023 Albumin [Mass/volume] in Serum or Plasma ALBUMIN BLD Lab Routine Primary osteoarthritis of left knee Primary osteoarthritis of right knee Anemia, unspecified type Expected: 02/01/2023, Expires: 04/03/2023 [facility] Work Phone: Comment on above: Expected: 02/01/2023 , Expires: 04/03/2023 Start: 02-01-2023 End: 04-03-2023 CBC W Auto Differential panel - Blood CBC + DIFF Lab Routine Primary osteoarthritis of left knee Primary osteoarthritis of right knee Anemia, unspecified type Expected: 02/01/2023, Expires: 04/03/2023 [facility] Work Phone: Comment on above: Expected: 02/01/2023 , Expires: 04/03/2023 Start: 02-01-2023 End: 04-03-2023 Cobalamin (Vitamin B12) [Mass/volume] in Serum or Plasma VITAMIN B12 BLOOD Lab Routine Primary osteoarthritis of left knee Primary osteoarthritis of right knee Anemia, unspecified type Expected: 02/01/2023, Expires: 04/03/2023 [facility] Work Phone: Comment on above: Expected: 02/01/2023 , Expires: 04/03/2023 Start: 02-01-2023 End: 04-03-2023 Ferritin [Mass/volume] in Serum or Plasma FERRITIN BLD Lab Routine Primary osteoarthritis of left knee Primary osteoarthritis of right knee Anemia, unspecified type Expected: 02/01/2023, Expires: 04/03/2023 [facility] Work Phone: Comment on above: Expected: 02/01/2023 , Expires: 04/03/2023 Start: 02-01-2023 End: 04-03-2023 Folate [Mass/volume] in Serum or Plasma FOLATE SERUM Lab Routine Primary osteoarthritis of left knee Primary osteoarthritis of right knee Anemia, unspecified type Expected: 02/01/2023, Expires: 04/03/2023 [facility] Work Phone: Comment on above: Expected: 02/01/2023 , Expires: 04/03/2023 Start: 02-01-2023 End: 04-03-2023 Iron and Iron binding capacity panel - Serum or Plasma IRON + TIBC Lab Routine Primary osteoarthritis of left knee Primary osteoarthritis of right knee Anemia, unspecified type Expected: 02/01/2023, Expires: 04/03/2023 [facility] Work Phone: Comment on above: Expected: 02/01/2023 , Expires: 04/03/2023 Start: 02-01-2023 End: 04-03-2023 RETIC COUNT RETIC COUNT Lab Routine Primary osteoarthritis of left knee Primary osteoarthritis of right knee Anemia, unspecified type Expected: 02/01/2023, Expires: 04/03/2023 [facility] Work Phone: Comment on above: Expected: 02/01/2023 , Expires: 04/03/2023 Start: 10-21-2022 ADVANCE DIRECTIVE DISCUSSION ADVANCE DIRECTIVE DISCUSSION [facility] Start: 10-21-2022 DEPRESSION ASSESSMENT DEPRESSION ASS ESSMENT [facility] Start: 01-23-2016 Pneumococcal Vaccine : 65+ (1 - PCV) Pneumococcal Vaccine: 65+ (1 - PCV) [facility] Start: 01-23-2016 Pneumococcal Vaccine : 65+ (1 of 1 - PCV) Pneumococcal Vaccine: 65+ (1 of 1 - PCV) [facility] Start: 01-23-2016 PNEUMOCOCCAL: 65+ (1 - PCV) PNEUMOCOCCAL: 65+ (1 - PCV) [facility] Start: 11-22-2014 DIABETES SCREEN DIABETES SCREEN [facility] Start: 2011 RSV Vaccine (1 - 1-d ose 60+ series) RSV Vaccine (1 - 1-dose 60+ series) [facility] Start: 2001 SHINGRIX VACCINE (1 of 2) ZAVALA GRIX VACCINE (1 of 2) [facility] Start: 01-23-1996 COLOGUARD (FIT-DNA) COLOGUARD (FIT-D NA) [facility] Start: 01-23-1996 Colonoscopy COLONOSCOPY [facility] Start: 01-23-1996 COLORECTAL CANCER SCREENING COLORECTAL CANCER SCREENING [facility] Start: 01-23-[address] COLONOGRAPHY [facility] Start: 01-23-1996 FECAL OCCULT BLOOD FECAL OCCULT BLOO D [facility] Start: 01-23-1996 Screening for malign ant neoplasm of colon [facility] Start: 01-23-1996 [facility] Start: 1986 Lipid 1996 panel - S gunner or Plasma Lipid Screening [facility] Start: 1986 Lipid [facility] Start: 1986 LIPID SCREEN LIPID SCREEN [facility] Start: 1970 Urine microalbumin profile [facility] Start: 1969 ANNUAL PCP TEAM 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 SANDEEP DISEASE VISIT ANNUAL PCP TEAM CHRONIC DISEASE VISIT [facility] Start: 1969 BP CONTROLLED (<130/80) BP CONTROLLE D (<130/80) [facility] Start: 1969 HEPATITIS C SCREENING HEPATITIS C [facility] Start: 1969 Hepatitis C screening Hepatitis C [facility] Start: 1951 COVID-19 VACCINE (#1) COVID-19 VACCI NE (#1) [facility] Start: 1950 Abdominal Aortic Ane urysm Screening Abdominal Aortic Aneurysm Screening [facility] Start: 1951 Abdominal aortic ane urysm screening Abdominal Aortic Aneurysm Screening [facility] End: 03-02-2024 CT KNEE WO IVCON LEFT CT KNEE WO IVCON LEFT Radiology Routine Primary osteoarthritis of left knee Primary osteoarthritis of right knee Anemia, unspecified type 1 Occurrences starting 02/01/2023 until 03/02/2024 [facility] Work Phone: Comment on above: 1 Occurrences starti ng 02/01/2023 until 03/02/2024 End: 04-29-2024 Echocardiography ECHO Cardiology Routine Pre-op evaluation 1 Occurrences starting 04/29/2023 until 04/29/2024 [facility] Work Phone: Comment on above: 1 Occurrences starti ng 04/29/2023 until 04/29/2024 STAPH AUREUS PCR STAPH AUREUS PC R Lab Routine Pre-operative examination Ordered: 08/28/2023 [facility] Work Phone: Comment on above: Ordered: 08/28/2023 TYPE AND SCREEN,30 DAY TYPE AND SCREEN,30 DAY Blood Bank Routine Pre-operative examination 08/29/2023 8:46 AM EST [facility] Work Phone: End: 11-01-2024 XR KNEE POST OP 3V AP/LAT/MERCHANT BILATERAL XR KNEE POST OP 3V AP/LAT/MERCHANT BILATERAL Radiology Routine S/P total knee arthroplasty, right 1 Occurrences starting 10/03/2023 until 11/01/2024 [facility] Work Phone: Comment on above: 1 Occurrences starti ng 10/03/2023 until 11/01/2024 [facility] Payers Date Payer Category Payer Unknown [employer] SUPPLE[employer] [id number] 2021-Present [phone] [id number] [employer] [place] [place] [address] Indemnity [id number] 2021 Unknown [id number] 2016 Medicare [id number] 1959 Medicare [id number] 1959 Unknown [id number] 1951 Unknown [id number] 1951 Unknown [id number] 1951 Unknown [id number] Social History Date Type Detail Facility Start: 08-20-2011 End: 04-29-2023 Tobacco smoking status NHIS Never smoked tobacco [facility] Start: 08-20-2011 End: 08-29-2023 Tobacco use and exposure Smokeless tobacco non-user [facility] Start: 02-01-2023 End: 08-29-2023 Alcohol intake Current drinker of alcohol (finding) [facility] Start: 02-01-2023 End: 04-29-2023 Alcohol intake [facility] Start: 11-09-2011 Alcohol Comment 1 drink of vod ka daily [facility] Start: 1950 Sex Assigned At Not on file C [facility] Start: 04-29-2023 End: 08-21-2023 Tobacco use panel [facility] National Score (1-10 0), lower number is lower risk 73 [facility] Start: 04-29-2023 Alcohol Comment 1 drink of vod ka daily per pt 04/29/2023 [facility] Has the [employer], or [employer] threatened to shut off services in your home in past 12Mo No [facility] Do you belong to any clubs or organizations such as baptism groups, unions, fraternal or athletic groups, or school groups? Yes [facility] Are you now , , , , never or living with a partner? [facility] How often to you hav e a drink containing alcohol? 4 or more times a week [facility] How many standard dr inks containing alcohol do you have on a typical day? 1 or 2 [facility] How often do you hav e 6 or more drinks on 1 occasion? Never [facility] How hard is it for y ou to pay for the very basics like food, housing, medical care, and heating Not very hard [facility] Do you feel stress - tense, restless, nervous, or anxious, or unable to sleep at night because your mind is troubled all the time - these days [OSQ] Only a little [facility] (I/We) worried magaly er (my/our) food would run out before (I/we) got money to buy more. Never true [facility] Start: 08-29-2023 Tobacco smoking stat us NHIS Ex-smoker [facility] End: 10-21-1982 History of tobacco use Current smoker [facility] End: 10-21-1982 History of tobacco use Cigarette Smoker [facility] Start: 08-29-2023 Alcohol Comment 1 drink of vod ka daily per pt 08/29/2023 [facility] NEGATED: Highlighted rowStart: NINF History of tobacco use Passive smoker [facility] Medical Equipment Procedure Code Equipment Code Equipment Origin al Text Equipment Identifier Dates Baseplate Triath shivani 6 Tritanium [id number] Tibial 4 Cruciform Peg Keel Knee - [id number] Start: 05-07-2023 Component Triath shivani 5 Pa Femoral Cruciate Retain Bead Knee Right - [id number] Start: 09-04-2023 Component Tritan ium 38mm Metal 11mm Patellar Asymmetric Knee - [id number] Start: 05-07-2023 Insert Triathlon 6 9mm Tibial Bearing Condylar Stabilize Sterile Knee - [id number] Start: 05-07-2023 Component Triath shivani 5 Pa Femoral Cruciate Retain Bead Knee Left - [id number] Start: 05-07-2023 Component Tritan ium 35mm Metal 10mm Patellar Asymmetric Knee - [id number] Start: 09-04-2023 Insert Triathlon 6 9mm Tibial Bearing Condylar Stabilize Sterile Knee - [id number] Start: 09-04-2023 Baseplate Triath shivani 6 Tritanium [id number] Tibial 4 Cruciform Peg Keel Knee - [id number] Start: 09-04-2023 Goals Date Patient Goal Desired Activity /State Personal health goal Clinical Notes 02-01-2023 to 01-27-2025 Shaji Bishop MD - 04/02/2024 10:09 AM Wili Stokes, RT(R) - 04/02/2024 9:15 AM Luma Jackson PA-Bryanna - 10/03/2023 8:11 AM Osmar Arellano, RT(R) - 08/29/2023 11:00 AM EST Note Date & Type Note Facility 01-27-2025 Note General Surgery Offi ce/Clinic Note Chief Complaint consultation for possible cholecystectomy HPI Staff 75 year old male presents on consultation from Dr. Fuller to discuss possible cholecystectomy. Patient presented to PCP office with complaint of right upper quadrant pain and jaundice. Labs completed 10/30 with ALT 322, AST 215, Alk Phos 942 and total bili 1.1. ABD US completed 11/04 with dilated common bile duct. MRCP completed 11/11 with abnormally dilated common bile dust and stone. ERCP with sphincterotomy completed 11/19. History of Present Illness 75 yo male with h/o htn, hyperlipidemia, pulmonary htn, tricuspid valve insufficiency, cardiac arrhythmia, GERD, prostate cancer, referred for h/o choledocholithiasis; patient developed jaundice, mild discomfort, right back pain back in October, found to have dilated cbd; MRCP with distal obstructing cbd stone; no cholelithiasis; patient had ERCP with stent placement, bx of stricture 11/19/24, 1 cm stone removed; patient has been well since that time; stent now removed; no h/o biliary colic in past or currently; no previous abd operations; normal bms, eating normally. on Diclofenac daily, no asa; no tobacco use; no fmhx of GI malignancy or IBD. Review of Systems PHQ Score Initial Depression Screen Score: 0 SCORE ROS - Provider Constitutional: no fever, no sweats, no weight loss. Eyes: no glasses, no blurred vision, no visual loss. ENMT: no dentures, no hoarseness, no swallowing difficulties, no hearing loss, no ear infection(s), no nose bleeds. Cardiovascular: normal blood pressure, no chest pain, regular heartbeat, no heart murmur. Respiratory: no shortness of breath, no cough, no asthma, no wheezing. Gastrointestinal: no nausea, no vomiting, no diarrhea, no constipation, no blood in stool, no change in bowel habits, no abdominal pain, no hepatitis. Genitourinary: no kidney stones, no urine infection, no dysuria. Musculoskeletal: no pain, no weakness. Skin: no changing moles, no rash, no skin lumps. Neurologic: no seizures, no epilepsy, no headache. Psychiatric: no emotional or psychiatric problem. Heme/Lymph: no bleeding problems, no anemia, no blood clots, no transfusions. Allergy/Immunologic: no swollen lymph nodes/glands, no IV drug abuse. Other: Additional ROS info: Except as noted in the above Review of Systems and in the History of Present Illness, all other systems have been reviewed and are negative or noncontributory. Physical Exam Vitals & Measurements HR: 72(Peripheral) RR: 16 BP: 102/64 HT: 185 cm HT: 73 in WT: 212.966 lb WT: 96.6 kg BMI: 28.22 HEENT: normal conjunctiva, sclera clear, no scleral icterus, EOM intact, PERRLA, oral mucosa moist without lesions. Neck: trachea midline, no mass, symmetric, no thyromegaly or nodules, no adenopathy Respiratory: lungs CTA, respirations non labored. Cardiovascular: regular rate and rhythm, no murmur, no pedal edema or varicosities. Gastrointestinal: soft, non distended, no tenderness, no masses, no palpable hernias, diastasis recti no, no hepatosplenomegaly; normal bs Lymphatic: no cervical adenopathy, no supraclavicular adenopathy. Musculoskeletal: normal gait, digits and nails without infection, nodes, cyanosis, clubbing. Skin: no rashes, no lesions, no ulcers, no subcutaneous nodules, induration. Psychiatric/Neuro: oriented to time, place, person, judgement normal, affect appropriate for age, insight intact, no focal deficits. Tests: labs reviewed, x-rays reviewed, review of old records completed , Assessment/Plan 1. Choledocholithiasis with obstruction (K80.51: Calculus of bile duct without cholangitis or cholecystitis with obstruction) isolated cbd stone; no other stones noted, normal gb on US and MRCP; asymptomatic; recommend repeat US of gallbladder to ensure no abnormalities; observation for now; no benefit to cholecystectomy at this time; call with problems/questions; will call patient with US results. Ordered: E&M of New Patient Moderate 45-59 Min [id number] US Abdomen, Limited Follow-up No qualifying data available Problem List/Past Medical History Ongoing BMI 28.0-28.9,adult Cardiac arrhythmia. Choledocholithiasis with obstruction Dilatation of aorta Erectile dysfunction Essential hypertension Gastroesophageal reflux disease History of malignant neoplasm of prostate Hyperlipidemia Overweight Pulmonary hypertension Tricuspid valve regurgitation Historical No qualifying data Procedure/Surgical History EGD - esophagogastroduodenoscopy (11/19/2024), ERCP (endoscopic retrograde cholangiopancreatography) with sphincterotomy (11/19/2024), Cataract extraction, Knee replacement. Medications Ambien 10 mg Tab, 10 mg= 1 tab(s), Oral, Once a day (at bedtime), PRN amLODIPine 10 mg Tab, 10 mg= 1 tab(s), Oral, Daily atenolol 50 mg Tab, 50 mg= 1 tab(s), Oral, Daily atorvastatin 40 mg Tab, 40 mg= 1 tab(s), Oral, Daily diclofenac sodium 75 mg Oral EC Tab, 75 mg= 1 tab(s), Oral, (more content not included)... [facility] Comment on above: Result Comment: Elec tronically Signed By: ILEANA LUNA, Espinoza ParkerDate and Time Signed: 01/27/25 16:14 EDT 12-17-2024 Note Patient: Ronnie lucas Procedure Summary Date: 12/17/24 Room / Location: [facility] Endoscopy Anesthesia Start: 1047 Anesthesia Stop: 1140 Procedure: ENDOSCOPIC RETROGRADE CHOLANGIOPANCREATOGRAPHY Diagnosis: Common bile duct calculi Scheduled Providers: Maribel White MD; Sher Patterson MD; OG Forrester Responsible Provider: Sher Patterson MD Anesthesia Type: general ASA Status: 2 Anesthesia Type: general Vitals Value Taken Time BP 118/68 12/17/24 1141 Temp 36.3 ???C (97.3 ???F) 12/17/24 1141 Pulse 68 12/17/24 1141 Resp 14 12/17/24 1141 SpO2 97 % 12/17/24 1141 Anesthesia Post Evaluation Patient location during evaluation: PACU Patient participation: complete - patient participated Level of consciousness: awake Pain score: 1 Pain management: adequate Airway patency: patent Cardiovascular status: acceptable Respiratory status: acceptable Patient is hemodynamically stable and is able to be discharged from PACU per anesthesia protocol. No notable events documented. [facility] 12-17-2024 Note Patient: Ronnie lucas Procedure Summary Date: 12/17/24 Room / Location: [facility] Endoscopy Anesthesia Start: 1047 Anesthesia Stop: Procedure: ENDOSCOPIC RETROGRADE CHOLANGIOPANCREATOGRAPHY Diagnosis: Common bile duct calculi Scheduled Providers: Maribel White MD; Sher Patterson MD; OG Forrester Responsible Provider: Sher Patterson MD Anesthesia Type: general ASA Status: 2 [facility]esthesia Post [facility] Patient Monitor: direct observation Transport: uneventful Patient condition is: stable [facility] 12-17-2024 Note Airway Date/Time: 12/17/2024 10:56 AM Urgency: elective Airway not difficult General Information and Staff Patient location during procedure: OR Anesthesiologist: Sher Patterson MD Resident/EMPLOYMENT REPRESENTATIVE/CAA: OG Forrester Performed: resident/EMPLOYMENT REPRESENTATIVE/OG Indications and Patient Condition Indications for airway management: anesthesia Spontaneous Ventilation: absent Sedation level: deep Preoxygenated: yes Mask difficulty assessment: 1 - vent by mask Final Airway Details Final airway type: endotracheal airway Successful airway: ETT Cuffed: yes Successful intubation technique: video laryngoscopy Facilitating devices/methods: intubating stylet Endotracheal tube insertion site: oral Blade: Kay Blade size: #3 ETT size (mm): 7.5 Cormack-Lehane Classification: grade I - full view of glottis Placement verified by: chest auscultation and capnometry Measured from: lips ETT to lips (cm): 23 Number of attempts at approach: 1 Number of other approaches attempted: 0 Additional Comments Hard bite block placed [facility] 12-17-2024 Note Patient: Ronnie lucas Procedure Information Date/Time: 11/19/24 0830 Scheduled providers: Maribel White MD; Sher Patterson MD; OG Quintero Procedures: ENDOSCOPIC RETROGRADE CHOLANGIOPANCREATOGRAPHY EUS (UPPER) W/ EGD Location: [facility] Endoscopy Relevant Problems Anesthesia (within normal limits) Cardio >4 METS, denies chest pain/SOB Endo (within normal limits) /Renal (within normal limits) Neuro/Psych (within normal limits) Pulmonary (within normal limits) Clinical information reviewed: Physical Exam Airway Mallampati: II TM distance: >3 FB Neck ROM: full Cardiovascular - normal exam Dental Comments: Partial dentures not in today Pulmonary - normal exam Abdominal Anesthesia Plan ASA 2 general The patient is not a current smoker. Patient was not previously instructed to abstain from smoking on day of procedure. Patient did not smoke on day of procedure. intravenous induction Anesthetic plan and risks discussed with patient. Plan discussed with OG. Additional Equipment Requests [facility] 11-19-2024 Note Patient: Ronnie lucas Procedure Summary Date: 11/19/24 Room / Location: [facility] Endoscopy Anesthesia Start: 0842 Anesthesia Stop: 1019 Procedures: ENDOSCOPIC RETROGRADE CHOLANGIOPANCREATOGRAPHY EUS (UPPER) W/ EGD Diagnosis: Common bile duct dilatation Dilation of common bile duct Scheduled Providers: Maribel White MD; Sher Patterson MD; OG Quintero Responsible Provider: Sher Patterson MD Anesthesia Type: general ASA Status: 2 Anesthesia Type: general Vitals Value Taken Time BP 110/65 11/19/24 1020 Temp 36.6 ???C (97.9 ???F) 11/19/24 1020 Pulse 72 11/19/24 1020 Resp 16 11/19/24 1020 SpO2 97 % 11/19/24 1020 Anesthesia Post Evaluation Patient location during evaluation: PACU Patient participation: complete - patient participated Level of consciousness: awake Pain score: 1 Pain management: adequate Airway patency: patent Cardiovascular status: acceptable Respiratory status: acceptable Patient is hemodynamically stable and is able to be discharged from PACU per anesthesia protocol. There were no known notable events for this encounter. [facility] 11-19-2024 Note Airway Date/Time: 11/19/2024 8:50 AM Urgency: elective Airway not difficult General Information and Staff Patient location during procedure: OR Anesthesiologist: Sher Patterson MD Resident/EMPLOYMENT REPRESENTATIVE/CAA: OG Quintero Performed: other anesthesia staff Learner assisted: SHOAIB Herrera Indications and Patient Condition Indications for airway management: anesthesia Spontaneous Ventilation: absent Sedation level: deep Preoxygenated: yes Patient position: sniffing Mask difficulty assessment: 1 - vent by mask Final Airway Details Final airway type: endotracheal airway Successful airway: ETT Cuffed: yes Successful intubation technique: direct laryngoscopy Facilitating devices/methods: intubating stylet Endotracheal tube insertion site: oral Blade: Kay Blade size: #3 ETT size (mm): 7.5 Cormack-Lehane Classification: grade I - full view of glottis Placement verified by: chest auscultation and capnometry Cuff volume (mL): 9 Measured from: lips ETT to lips (cm): 23 Number of attempts at approach: 1 Number of other approaches attempted: 0 [facility] 11-19-2024 Note Patient: Ronnie lucas Procedure Information Date/Time: 11/19/24 0830 Scheduled providers: Maribel White MD; Sher Patterson MD; OG Quintero Procedures: ENDOSCOPIC RETROGRADE CHOLANGIOPANCREATOGRAPHY EUS (UPPER) W/ EGD Location: [facility] [place] [facility] Relevant Problems Anesthesia (within normal limits) Cardio >4 METS, denies chest pain/SOB Endo (within normal limits) /Renal (within normal limits) Neuro/Psych (within normal limits) Pulmonary (within normal limits) Clinical information reviewed: Tobacco Allergies Meds Med Hx Surg Hx Fam Hx Soc Hx Physical Exam Airway Mallampati: II TM distance: >3 FB Neck ROM: full Cardiovascular - normal exam Dental Comments: Partial dentures not in today Pulmonary - normal exam Abdominal Anesthesia Plan ASA 2 general The patient is not a current smoker. Patient was not previously instructed to abstain from smoking on day of procedure. Patient did not smoke on day of procedure. intravenous induction Anesthetic plan and risks discussed with patient. Plan discussed with CAA. Additional Equipment Requests [facility] 04-02-2024 Note HNO ID: [id number] Author: SHAJI BISHOP MD Service: ? Author [...] as documented by the Orthopaedic surgery resident/fellow/physician entry level administrative assistant was reviewed and discussed in detail. We have discussed the case and management of the patient's care, and I agree with the above documented information and plan. Provider: Shaji Bishop MD Completed by: Shaji Bishop MD. [facility] 04-02-2024 History of Present illness Narrative [...] as documented by the Orthopaedic surgery resident/fellow/physician entry level administrative assistant was reviewed and discussed in detail. We have discussed the case and management of the patient's care, and I agree with the above documented information and plan. Provider: Shaji Bishop MD Completed by: Shaji Bishop MD. documented in this encounter [facility] 04-02-2024 History of Present illness Narrative [...] PATIENT PRESENTS WITH AN IMPLANTABLE OR ATTACHED SALES MGR: No RADIOLOGY DEPARTMENT: General X-ray: Exam(s) Completed: Lower Extremity X-Ray(s): Knee, AP / Lat / Merchant Bilateral and Wt. Bearing PERIPHERAL IV DATA: Not applicable SIGNED BY:NIECY BEARDEN(RT) AND RT Leslee(R) April 02, 2024 9:42 AM documented in this encounter [facility] 04-02-2024 Note HNO ID: [id number] Author: WILI RICE RT(Alba) Service: Radiology Author Type: Technologist Type: [...] PATIENT PRESENTS WITH AN IMPLANTABLE OR ATTACHED SALES MGR: No RADIOLOGY DEPARTMENT: General X-ray: Exam(s) Completed: Lower Extremity X-Ray(s): Knee, AP / Lat / Merchant Bilateral and Wt. Bearing PERIPHERAL IV DATA: Not applicable SIGNED BY:NIECY BEARDEN(RT) AND RT Leslee(R) April 02, 2024 9:42 AM [facility] 10-03-2023 Note HNO ID: [id number] Author: Luma Garcia PA-C Service: ? Author Type: Physician Associate Director Finance Type: Progress Notes Filed: 10/03/2023 11:08 AM [...] Last 180 days 09/04/23 Shaji Bishop MD, [id number] Status post total knee replacement, right ..., Admission (Discharged) 05/07/23 Shaji Bishop MD, [id number] Primary osteoarthritis of left knee, Admission (Discharged) [...] Garcia PA-C Completed by: Luma Garcia PA-C [facility] 10-03-2023 History of Present illness Narrative [...] Last 180 days 09/04/23 Shaji Bishop MD, [id number] Status post total knee replacement, right ..., Admission (Discharged) 05/07/23 Shaji Bishop MD, [id number] Primary osteoarthritis of left knee, Admission (Discharged) [...] Luma Garcia PA-C documented in this encounter [facility] 10-03-2023 Note HNO ID: [id number] Author: Megan Bearden RT(R) Service: Radiology Author [...] RT Jyotsna(R) October 03, 2023 8:02 AM [facility] 09-16-2023 Miscellaneous Notes Re: s/p RTKA on 09/04. Requesting refill of OxyIr. Last fill on 09/10. States he is out; took last 2 last night. [facility] documented in this encounter [facility] 09-09-2023 Miscellaneous Notes The following medication(s) were electronically ordered by Luma Garcia PA-C on 09/09/2023. The prescription(s) were sent to [facility]. Requested Prescriptions Pending Prescriptions Disp Refills [...] average per day. documented in this encounter [facility] 09-09-2023 Miscellaneous Notes Patient has been [...] need a refill tomorrow, will pend to [facility]. Reminded how to take two for [...] Nicole Meeks RN documented in this encounter [facility] 09-05-2023 Note HNO ID: [id number] Author: Kelle Palma PA-C Service: Orthopaedic Surgery Author Type: Physician Associate Director Finance Type: Plan of Care Filed: 09/05/2023 8:35 AM Note Text: Orthopaedic plan of care Plan of care discussed with: Provider, RN, Patient. Patient sitting up in bed. His pain is tolerable. Patient is eager to discharge home this morning. He will work with PT this morning. CM checking on [facility] Discharge instructions and med rec completed. [...] and skilled for home PT [facility] Anticipate discharge today Principal Problem: Primary osteoarthritis of right knee Kelle Palma PA-C [facility] 09-05-2023 Note HNO ID: [id number] Author: Erin Paez DO Service: Orthopaedic Surgery [...] Department of Orthopedic Surgery 09/05/2023 6:27 AM [facility] 09-04-2023 Note HNO ID: [id number] Author: Dominique Castaneda APRN.CRNA Service: ? Author Type: Nurse Hotel Engineer Type: Anesthesia Procedure Notes Filed: 09/04/2023 [...] September 04, 2023 TIME: 11:31 AM CSN: [id number] [facility] 09-04-2023 Note HNO ID: [id number] Author: Jamel Guevara MD Service: ? Author Type: Resident Type: Anesthesia Procedure Notes Filed: 09/04/2023 7:55 AM Note Text: ---- Attestation signed by Melissa Burgso MD at 09/05/2023 11:18 AM I evaluated the patient and personally participated in the murguia components. I agree with the resident's findings and plan as documented and have discussed the case and management of the patient's care with the resident. Signature: Melissa Burgos MD Service Date: 09/05/2023 Service Time: 11:18 AM ---- ANESTHESIOLOGY PROCEDURE NOTE Peripheral Nerve Block General [...] September 04, 2023 TIME: 7:54 AM CSN: [id number] [facility] 08-29-2023 History of Present illness Narrative [...] 2023 9:48 AM documented in this encounter [facility] 08-29-2023 Note HNO ID: [id number] Author: Osmar Kuo RT(Alba) Service: Radiology Author [...] Kuo, RT(R) August 29, 2023 9:48 AM [facility] 08-29-2023 Instructions Dwain Mcintosh APRN.CLAIM EXAMINER - 08/29/2023 7:56 AM EST PATIENT PREOPERATIVE INSTRUCTIONS Dr. Shaji Bishop has scheduled you for your procedure at this surgery center: [facility] Scheduling Office: [phone] --[address] [place] [address]. Please read below carefully for your personalized [...] call the Saturday before. Your surgeon s mechanical sound technician will tell you what time to call the office. - If you have not reached the departmental mechanical sound technician by 5 P.M., call [phone] after 5 P.M. the day before your surgery. Please be aware that emergency situations arise, which may delay or change your surgical time. If this happens, we will notify you as soon as possible and regret any inconvenience. If you already have an Advance Directive, please fax a copy to [phone] or email to for it to be [...] into your chart that day. Dwain Mcintosh APRN.CNP documented in this encounter [facility] 08-29-2023 History and physical note HISTORY AND PHYSICAL EXAMINATION SERVICE DATE: 08/29/2023 SERVICE TIME: 7:41 AM PRIMARY CARE PHYSICIAN: Merline Fuller MD REASON FOR VISIT: Ronnie Abebe is a 73 year old male who is scheduled for RIGHT ROBOTIC ASSISTED TOTAL KNEE ARTHROPLASTY on 09/04/2023 at [facility] at the request of Dr. [...] Pulmonary HTN, Dilated aorta. Negative for DVT/PE, IN, Cardiac surgery or stents. Denies current chest [...] TIME: 8:23 AM documented in this encounter [facility] 08-21-2023 Miscellaneous Notes ORTHOPAEDIC COORDINATION OF CARE Pre-Op Assessment Discharge Disposition (Planned): Home with Home Health Discharge Transportation: Car PRIMARY CARE PHYSICIAN: Merline Fuller MD OR Surgery Date: 09/04/2023 [facility] Appointment: 09/04/2023 Joint: Jointtype: Knee Side: right Health Insurance: Medicare or MEDICARE RAILROAD PB ONLY Primary Contact: Extended Emergency Contact Information Primary Emergency Contact: Michelle Abebebie Mobile Relation: Spouse Have you had joint [...] min Stress: No Stress Concern Present (08/21/2023) [facility] [place] [facility] - Occupational Stress Questionnaire Feeling of Stress : Only a little Social Connections: Socially Integrated (08/21/2023) Social Connection and Isolation Panel [NHANES] Frequency of Communication with Friends and Family: More than three times a week Frequency of Social Gatherings with Friends and Family: Once a week Attends Religion Services: 1 to 4 times per year [...] Year: No Utilities: Not At Risk (08/21/2023) [facility] Utilities Threatened with loss of utilities: No Area Deprivation Index: Medium Risk (04/29/2023) Area Deprivation Index National Score (1-100), lower number is lower risk: 73 State Score (1-10), lower number is lower risk: 6 Data from: https://www.neighborhoodatlas.medicine .[facility].edu/. Last address used for calculation: [address] [place] [address] [address] Equipment: Do you currently use [...] Yes - Within 25 miles [place] [address] [place] [address] Total Joint Arthroplasty (TJA) Surgical Risk Procedure: Primary total Knee replacement Date assessed: risk assessed on 04/29/2023 TJA Risk 04/29/2023 Procedure Primary total Knee replacement Estimated Length of Stay (# of days) 1 Chance of NOT Returning Home at Discharge 3.85 % 30 Day Chance of Readmission 3.06 % Patient lives outside of [facility] service area. Patient stated [facility] is agency of choice for [facility] services. Plan for spouse to provide D/C transport home following surgery. Patient is aware of the possibility of same day D/C at this time and is in agreement SIGNATURE: JOVANNI Spence DATE: August 21, 2023 TIME: 11:34 AM documented in this encounter [facility] 06-07-2023 Note HNO ID: [id number] Author: Luma Garcia PA-C Service: ? Author Type: Physician Associate Director Finance Type: Progress Notes Filed: 06/07/2023 12:30 PM [...] Last 180 days 05/07/23 Shaji Bishop MD, [id number] Primary osteoarthritis of left knee, Admission (Discharged) [...] Garcia PA-C Completed by: Luma Garcia PA-C [facility] 06-07-2023 History of Present illness Narrative [...] Last 180 days 05/07/23 Shaji Bishop MD, [id number] Primary osteoarthritis of left knee, Admission (Discharged) [...] Luma Garcia PA-C documented in this encounter [facility] 06-07-2023 History of Present illness Narrative [...] IV DATA: Not applicable SIGNED BY: RT Quezada (R) June 07, 2023 9:31 AM documented in this encounter [facility] 06-07-2023 Note HNO ID: [id number] Author: Megan Nova RT (R) Service: ? Author Type: Technologist Type: Progress [...] PERIPHERAL IV DATA: Not applicable SIGNED BY: CARLOS Quezada) June 07, 2023 9:31 AM [facility] 05-09-2023 Miscellaneous Notes Patient has been [...] Nicole Meeks RN documented in this encounter [facility] 05-07-2023 Note HNO ID: [id number] Author: Sharon Mensah RN Service: Care Management [...] the process utilized to ensure compliance with [facility] policy regarding Inpatient Admission and Observation Services. [...] physician's order as documented evidence of concurrence. [facility] 05-07-2023 Note HNO ID: [id number] Author: oRnnie Rosa RN Service: Care Management Author Type: [...] the inter-professional team: Yes Name of Caregiver: [facility] Transportation Arrangements Transportation Arrangements: Car Destination: Home Handoff Communication: Handoff to: Primary Care Physician Primary Care Physician Name/Phone: Merline Fuller MD [phone] Additional Information: Discharge Information Row Name Admission (Current) from 05/07/2023 in [facility] Home Health Care Agency [facility] Phone# Patient d/c ready to home today with [facility] services provided by [facility] with confirmed SOC date within 24-48 hours of D/C.. Patient to be transported home by family via private auto. Patient aware of plan and has been provided with [facility] contact information via AVS. Bedside RN aware of plan. DC instructions sent to [facility] via [employer]. SIGNATURE: Ronnie Rosa RN PATIENT NAME: Ronnie Abebe DATE: May 07, 2023 TIME: 4:31 PM CONTACT #: [phone] [facility] 05-07-2023 Note HNO ID: [id number] Author: Ronnie Rosa RN Service: Care Management [...] Inpatient Insurance Provider: MEDICARE A AND B [place] of Choice Explained: [place] of Choice Given: Yes Level of Care Discussed: Home Care Are you interested in bedside delivery of your medications? No Caregiver Assessment: Caregiver is ready, willing and able to meet the patient's needs as recommended by the inter-professional team: Yes Name of Caregiver: [facility] Transport at Discharge: Transportation Arrangements: Car Destination: Home Needs Prior to Discharge: Needs Prior to Discharge: None;Ready for Discharge Post-Acute Discharge Plan: Plan for D/C home today with home PT. [facility] accepting. Patient and RN aware. SIGNATURE: Ronnie Rosa RN PATIENT NAME: Ronnie Abebe DATE: May 07, 2023 TIME: 4:29 PM CONTACT #: [phone] [facility] 05-07-2023 Note HNO ID: [id number] Author: Arleen Jacobs APRN.EMPLOYMENT REPRESENTATIVE Service: ? Author Type: Nurse Hotel Engineer Type: Anesthesia Procedure Notes Filed: 05/07/2023 9:45 AM Note Text: ANESTHESIOLOGY PROCEDURE NOTE Spinal Block General Information Procedure Start Time/Medication Administration: 05/07/2023 8:39 AM Patient location during procedure: OR Timeout Performed Pre-procedure: timeout performed Patient identity confirmed: arm band and patient Reason for Block: primary surgical anesthetic Staffing EMPLOYMENT REPRESENTATIVE: Arleen Jacobs APRN.EMPLOYMENT REPRESENTATIVE Performed by: EMPLOYMENT REPRESENTATIVE Preparation Sterility Preparation: hand hygiene performed prior [...] - 05/07/2023 8:39:00 AM SIGNATURE: Arleen Jacobs APRN.EMPLOYMENT REPRESENTATIVE PATIENT NAME: Ronnie Abebe DATE: May 07, 2023 TIME: 9:45 AM CSN: [id number] [facility] 05-07-2023 Note HNO ID: [id number] Author: Michelet Hsu MD Service: ? Author Type: Resident Type: Anesthesia Procedure Notes Filed: 05/07/2023 7:07 AM Note Text: ---- Attestation signed by Elizabeth King MD at 05/07/2023 2:44 PM I was present throughout the entire procedure Patient tolerated procedure without any complications. Elizabeth King MD [facility] Staff Pager: [phone] ---- ANESTHESIOLOGY PROCEDURE NOTE Peripheral Nerve Block General [...] May 07, 2023 TIME: 7:05 AM CSN: [id number] [facility] 05-06-2023 Miscellaneous Notes Spoke with patient [...] states an understanding. documented in this encounter [facility] 05-01-2023 Note HNO ID: [id number] Author: Dimple Dan RN Service: ? Author Type: Registered Nurse Type: Progress Notes Filed: 05/01/2023 1:32 PM Note Text: Patient referred to Blood Management for pre-surgical optimization. Hgb 14.1 which exceeds Blood Management guidelines for intervention. [facility] 05-01-2023 History of Present illness Narrative Patient referred to Blood Management for pre-surgical optimization. Hgb 14.1 which exceeds Blood Management guidelines for intervention. documented in this encounter [facility] 04-29-2023 Note HNO ID: [id number] Author: Valeria Farmer MD Service: ? Author [...] Farmer MD Date: 04/29/2023 Time: 2:39 PM [facility] 04-29-2023 History of Present illness Narrative Attending Note I evaluated the patient and personally participated in the murguia components. I agree with the resident's findings and plan as documented and have discussed the case and management of the patient's care with the resident. Signature: Valeria Farmer MD Date: 04/29/2023 Time: 2:39 PM documented in this encounter [facility] 04-29-2023 History of Present illness Narrative [...] 2023 2:07 PM documented in this encounter [facility] 04-29-2023 Note HNO ID: [id number] Author: CARLOS Jalloh) Service: Radiology Author Type: Technologist Type: Progress Notes Filed: 04/29/2023 2:09 PM Note Text: Radiology Service Progress Note PATIENT NAME: Ronnie Abeeb DATE OF SERVICE: April 29, 2023 TIME: [...] PERIPHERAL IV DATA: Not applicable SIGNED BY: CARLOS Jalloh) April 29, 2023 2:07 PM [facility] 04-29-2023 Instructions Ashleigh Serra MD - 04/29/2023 1:17 PM EDT PATIENT PREOPERATIVE INSTRUCTIONS Luma Garcia PA-C has scheduled you for your procedure at this surgery center: [facility] Scheduling Office: [phone] --[address] [place] [address]. Please read below carefully for your personalized [...] Procedures: - YOU MUST HAVE A RESPONSIBLE BRICKLAYER TENDER TAKE YOU HOME. A DIPPER AND BAKER OR WEB ANALYTICS SPECIALIST CANNOT BE MADE A RESPONSIBLE BRICKLAYER TENDER. - We recommend that a responsible person [...] call the Saturday before. Your surgeon s mechanical sound technician will tell you what time to call the office. - If you have not reached the departmental mechanical sound technician by 5 P.M., call [phone] after 5 P.M. the day before your surgery. Please be aware that emergency situations arise, which may delay or change your surgical time. If this happens, we will notify you as soon as possible and regret any inconvenience. If you already have an Advance Directive, please fax a copy to [phone] or email to for it to be [...] Ashleigh Serra MD documented in this encounter [facility] 04-29-2023 History and physical note HISTORY [...] fevers. Neuro: No history of TIA's, stroke, OUTPATIENT PROGRAM COORDINATOR tumor, impaired sensorium, hemiplegia, paraplegia or quadraplegia. No neurological symptoms or problems. Respiratory: No history of current cough or dyspnea, or pneumonia in the past 6 weeks. No history of respiratory/pulmonary symptoms or problems. Cardiovascular: +HTN no hx of angina, IN, stent placement GI: No history of GI [...] +hx of prostate cancer s/p prostatectomy no HOG OPERATOR Psych: No history of psychiatric symptoms or [...] instructions and voices comprehension and compliance. SIGNATURE: Ahsleigh Serra MD PATIENT NAME: Ronnie Abebe DATE: April 29, 2023 TIME: 12:40 PM documented in this encounter [facility] 04-29-2023 Note HNO ID: [id number] Author: Shaji Bishop MD Service: ? Author [...] Smoking normal High (more content not included)... [facility] 02-21-2023 Note OPERATIVE NOTE OPERATION DATE: [...] was further verified by calling his local manager corporate communications prior to surgery and coming to a conclusion of what would be best suited for the patient. This was done; however, the local manager corporate communications once again had not seen the patient [...] ensuring mobility, phacoemulsification was performed in a [id number]-type fashion. After all nuclear material had been [...] the following day for postoperative care. [facility] 02-21-2023 Note HISTORY AND PHYSICAL EXAMINATION Date:02/20/2023 [...] go forward with his elective procedure. [facility] 02-04-2023 History of Present illness Narrative Patient referred to Blood Management for anemia evaluation/pre-surgical optimization. Current and complete lab data unavailable. Unable to complete evaluation. documented in this encounter [facility] 02-01-2023 Instructions Luma Garcia PA-C - [...] the next three days at the nearest [facility] lab. If you would like, you [...] us: If you are having surgery at [facility] or If you are having surgery at [place], [place], [facility] , [place], [place], [place], [facility], or [facility] documented in this encounter [facility] 02-01-2023 History of Present illness Narrative [...] TIME: 2:00 PM documented in this encounter [facility] 02-01-2023 History of Present illness Narrative [...] 2023 1:45 PM documented in this encounter [facility] Evaluation note Diagnosis Primary osteoarthritis of left knee- Primary Primary localized osteoarthrosis, lower leg Primary osteoarthritis of right knee Primary localized osteoarthrosis, lower leg Anemia, unspecified type [facility] Pain Generalized [facility] Diagnosis Pre-op evaluation- Primary Preoperative examination, unspecified Arthritis of left knee Unspecified arthropathy, lower leg [facility] Primary osteoarthritis of left knee Primary localized osteoarthrosis, lower leg Primary osteoarthritis of right knee Primary localized osteoarthrosis, lower leg Anemia, unspecified type Arthritis of left knee Unspecified arthropathy, lower leg [facility] Diagnosis Arthritis of left knee- Primary Unspecified arthropathy, lower leg Arthritis of left knee Unspecified arthropathy, lower leg [facility] Diagnosis Pain- Primary Generalized pain Arthritis of left knee Unspecified arthropathy, lower leg [facility]* Diagnosis Arthritis of left knee- Primary Unspecified arthropathy, lower leg Arthritis of left knee Unspecified arthropathy, lower leg [facility]* Diagnosis S/P total knee arthroplasty, left- Primary Acute post-operative pain [facility]* Diagnosis Arthritis of left knee Unspecified arthropathy, lower leg Arthritis of left knee Unspecified arthropathy, lower leg [facility] Diagnosis Primary osteoarthritis of right knee- Primary Primary localized osteoarthrosis, lower leg [facility]* Diagnosis Pre-operative examination- Primary Preoperative examination, [...] osteoarthrosis, lower leg [facility]* Diagnosis Primary osteoarthritis of right knee Primary localized osteoarthrosis, lower leg Primary osteoarthritis of right knee Primary localized osteoarthrosis, lower leg [facility]* Diagnosis Primary osteoarthritis of right knee Primary localized osteoarthrosis, lower leg Primary osteoarthritis of right knee Primary localized osteoarthrosis, lower leg [facility]* Diagnosis Status post total knee replacement, right Primary osteoarthritis of right knee Primary localized osteoarthrosis, lower leg [facility]* Diagnosis Status post total knee replacement, right Primary osteoarthritis of right knee Primary localized osteoarthrosis, lower leg [facility]* Diagnosis S/P total knee arthroplasty, right- Primary [facility] Diagnosis S/P total knee arthroplasty, right- Primary Status post left knee replacement [facility]* Diagnosis S/P total knee arthroplasty, right documented in this encounter [facility] for referral (narrative)* Diagnostic Procedure Only (Routine) - Closed Specialty Diagnoses / Procedures Referred By Contac t Referred To Contact XR IMAGING Diagnoses Pain Procedures XR KNEE GENERAL 4V AP BOTH/PA BOTH/LAT/MERC BILATERAL RADIOLOGIC EXAM KNEE COMPLETE 4/MORE VIEWS Luma Garcia PA-C [address] [place] [address] Xr Imaging Referral ID Status Reason Start Date Expiration Date V isits Requested Visits Authorized [id number] Closed Auto-Generate d Referral 01/23/2023 02/22/[address] [facility] for referral (narrative)* Outpatient Procedure (Routine) - Authorized Specialty Diagnoses / Procedures Referred By Contac t Referred To Contact [facility] Diagnoses Pre-op evaluation Procedures ECHO ECHO TTHRC R-T 2D W/WOM-MODE COMPL SPEC&COLR D Valeria Farmer MD [address] [place] [address] [facility] [place] [address] [place] [address] Referral ID Status Reason Start Date Expiration Date Visits Requested Visits Authorized [id number] Authorized Auto-Generat ed Referral 04/29/2023 04/28/[address] [facility] for referral (narrative)* Diagnostic Procedure Only (Routine) - Closed Specialty Diagnoses / Procedures Referred By Contac t Referred To Contact XR IMAGING Diagnoses Pain Procedures XR KNEE GENERAL 4V AP BOTH/PA BOTH/LAT/MERC BILATERAL RADIOLOGIC EXAM KNEE COMPLETE 4/MORE VIEWS Luma Garcia PA-C [address] [place] [address] Xr Imaging Referral ID Status Reason Start Date Expiration Date V isits Requested Visits Authorized [id number] Closed Auto-Generate d Referral 01/23/2023 02/22/[address] [facility] for referral (narrative)* Diagnostic Procedure Only (Routine) - Closed Specialty Diagnoses / Procedures Referred By Contac t Referred To Contact XR IMAGING Diagnoses Arthritis of left knee Procedures XR KNEE POST OP 3V AP/LAT/MERCHANT LEFT RADIOLOGIC EXAMINATION KNEE 3 VIEWS Shaji Bishop MD [address] [id number] [place] [address] Referral ID Status Reason Start Date Expiration Date V isits Requested Visits Authorized [id number] Closed Auto-Generate d Referral 05/16/2023 03/05/[address] [facility] for referral (narrative)* Diagnostic Procedure Only (Routine) - Closed Specialty Diagnoses / Procedures Referred By Contac t Referred To Contact XR IMAGING Diagnoses Primary osteoarthritis of right knee Procedures XR KNEE GENERAL 4V AP BOTH/PA BOTH/LAT/MERC RIGHT RADIOLOGIC EXAM KNEE COMPLETE 4/MORE VIEWS Shaji Bishop MD [address] [place] [address] Xr Imaging [id number] Referral ID Status Reason Start Date Expiration Date V isits Requested Visits Authorized [id number] Closed Auto-Generate d Referral 06/12/2023 07/09/2024 1 1 [facility] for referral (narrative)* Diagnostic Procedure Only (Routine) - Authorized Specialty Diagnoses / Procedures Referred By Contac t Referred To Contact XR IMAGING Diagnoses S/P total knee arthroplasty, right Procedures XR KNEE POST OP 3V AP/LAT/MERCHANT BILATERAL RADIOLOGIC EXAMINATION KNEE 3 VIEWS Luma Garcia PA-C [address] [place] [address] [place] [address] Referral ID Status Reason Start Date Expiration Date Visits Requested Visits Authorized [id number] Authorized Auto-Generat ed Referral 11/01/2024 1 1 * Physical Therapy (Routine) - Pending Review Specialty Diagnoses / Procedures Referred By Contac t Referred To Contact [facility] Diagnoses S/P total knee arthroplasty, right Procedures CONSULT TO PHYSICAL THERAPY PHYSICAL THERAPY EVALUATION HIGH COMPLEX 45 MINS Luma Garcia PA-C [address] [place] [address] [facility] [place] [address] [place] [address] Referral ID Status Reason Start Date Expiration Date Visits Requested Visits Authorized [id number] Pending Review PCP Requested Referral Auto-Generate d Referral 10/02/[address] [facility] for referral (narrative)* Diagnostic Procedure Only (Routine) - Closed Specialty Diagnoses / Procedures Referred By Contac t Referred To Contact XR IMAGING Diagnoses S/P total knee arthroplasty, right Procedures XR KNEE POST OP 3V AP/LAT/MERCHANT BILATERAL RADIOLOGIC EXAMINATION KNEE 3 VIEWS Luma Garcia PA-C [address] [place] [address] Xr Imaging [id number] Referral ID Status Reason Start Date Expiration Date V isits Requested Visits Authorized [id number] Closed Auto-Generate d Referral 10/03/2023 11/01/[address] [facility] for visit Narrative* Diagnostic Procedure Only (Routine) - Closed Specialty Diagnoses / Procedures Referred By Contac t Referred To Contact XR IMAGING Diagnoses Primary osteoarthritis of right knee Procedures XR KNEE GENERAL 4V AP BOTH/PA BOTH/LAT/MERC RIGHT RADIOLOGIC EXAM KNEE COMPLETE 4/MORE VIEWS Shaji Bishop MD [address] [place] [address] [place] [address] Referral ID Status Reason Start Date Expiration Date V isits Requested Visits Authorized [id number] Closed Auto-Generate d Referral 06/12/2023 07/09/2024 1 1 [facility] Reason for Referral Specialty Diagnoses / Procedures Referred By Contac t Referred To Contact CT IMAGING Diagnoses Primary osteoarthritis of left knee Primary osteoarthritis of right knee Anemia, unspecified type Procedures CT KNEE WO IVCON LEFT CT LOWER EXTREMITY W/O CONTRAST MATERIAL Luma Garcia PA-C [address] [place] [address] Ct Imaging Referral ID Status Reason Start Date Expiration Date Visits Requested Visits Authorized [id number] Pending Review Auto-Generat ed Referral 02/01/2023 03/02/2024 1 1 Referral ID Status Reason Start Date Expiration Date V isits Requested Visits Authorized [id number] Closed Auto-Generate d Referral 02/01/2023 03/02/2024 1 1 Specialty Diagnoses / Procedures Referred By Contac t Referred To Contact [facility] Diagnoses S/P total knee arthroplasty, left Acute post-operative pain Procedures CONSULT TO PHYSICAL THERAPY PHYSICAL THERAPY EVALUATION HIGH COMPLEX 45 MINS Luma Garcia PA-C [address] [place] [address] [facility] [place] [address] [id number] Referral ID Status Reason Start Date Expiration Date Visits Requested Visits Authorized [id number] Pending Review PCP Requested Referral Auto-Generate d Referral 06/07/2023 06/06/2024 99 99 Specialty Diagnoses / Procedures Referred By Contac t Referred To Contact CT IMAGING Diagnoses Primary osteoarthritis of right knee Procedures CT KNEE WO IVCON RIGHT CT LOWER EXTREMITY W/O CONTRAST MATERIAL Shaji Bishop MD [address] [place] [address] Ct Imaging [id number] Referral ID Status Reason Start Date Expiration Date Visits Requested Visits Authorized [id number] Pending Review Auto-Generat ed Referral 06/12/2023 07/09/2024 1 1 Specialty Diagnoses / Procedures Referred By Contac t Referred To Contact Anesthesiology Diagnoses Primary osteoarthritis of right knee Procedures CONSULT TO ANESTHESIOLOGY OFFICE/OUTPATIENT [facility] MDM 60-74 MINUTES Shaji Bishop MD [address] [place] [address] Referral ID Status Reason Start Date Expiration Date Visits Requested Visits Authorized [id number] Authorized PCP Requested Referral 06/12/2023 06/09/2024 1 1 Specialty Diagnoses / Procedures Referred By Contac t Referred To Contact XR IMAGING Diagnoses Primary osteoarthritis of right knee Procedures XR KNEE GENERAL 4V AP BOTH/PA BOTH/LAT/MERC RIGHT RADIOLOGIC EXAM KNEE COMPLETE 4/MORE VIEWS Shaji Bishop MD [address] [place] [address] Xr Imaging [place] [address] Referral ID Status Reason Start Date Expiration Date Visits Requested Visits Authorized [id number] Pending Review Auto-Generat ed Referral 06/12/2023 07/09/2024 1 1 Specialty Diagnoses / Procedures Referred By Contac t Referred To Contact XR IMAGING Diagnoses Primary osteoarthritis of right knee Procedures XR KNEE POST OP 3V AP/LAT/MERCHANT RIGHT RADIOLOGIC EXAMINATION KNEE 3 VIEWS Shaji Bishop MD [address] [place] [address] Xr Imaging [place] [address] Referral ID Status Reason Start Date Expiration Date Visits Requested Visits Authorized [id number] Pending Review Auto-Generat ed Referral 06/12/2023 07/09/2024 1 1 Specialty Diagnoses / Procedures Referred By Contac t Referred To Contact [facility] Diagnoses Primary osteoarthritis of right knee Procedures ECG COMPLETE ECG ROUTINE ECG W/LEAST 12 LDS W/I&R Shaji Bishop MD [address] [place] [address] [facility] [place] [address] [place] [address] Referral ID Status Reason Start Date Expiration Date Visits Requested Visits Authorized [id number] Pending Review Auto-Generat ed Referral 06/12/2023 06/09/2024 1 1 Referral ID Status Reason Start Date Expiration Date V isits Requested Visits Authorized [id number] Closed Auto-Generate d Referral 06/12/2023 07/09/2024 1 1 Specialty Diagnoses / Procedures Referred By Contac t Referred To Contact Diagnoses Status post total knee replacement, right Primary osteoarthritis of right knee Luma Garcia PA-C [address] [place] [address] Referral ID Status Reason Start Date Expiration Date V isits Requested Visits Authorized [id number] Pending Review 1 1 Summary Purpose Family History No Family History Records FoundNo Family History Records FoundNo Family History Records FoundNo Family History Records Found Advance Directives No Advanced Directives Records FoundNo Advanced Directives Records FoundNo Advanced Directives Records FoundNo Advanced Directives Records Found Health Concerns Problem Noted Date Diagnosed Date 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 Release Of Information Clerk 05/02/2023 Problem Noted Date Diagnosed Date 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 Release Of Information Clerk 05/02/2023 Problem Noted Date Diagnosed Date 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 Release Of Information Clerk 05/02/2023 Problem Noted Date Diagnosed Date 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 Release Of Information Clerk 05/02/2023 Problem Noted Date Diagnosed Date 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 Release Of Information Clerk 05/02/2023 Problem Noted Date Diagnosed Date 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 Release Of Information Clerk 05/02/2023 Problem Noted Date Diagnosed Date 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 Release Of Information Clerk 05/02/2023 Problem Noted Date Diagnosed Date 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 Release Of Information Clerk 05/02/2023 Problem Noted Date Diagnosed Date 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 Release Of Information Clerk 05/02/2023 Problem Noted Date Diagnosed Date 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 Release Of Information Clerk 05/02/2023 Problem Noted Date Diagnosed Date 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 Release Of Information Clerk 05/02/2023 Additional Source Comments Source Comments (unrecognize d section and content) In the event this informatio n is protected by the Federal Confidentiality of Alcohol and Drug Abuse Patient Records regulations: The Federal rules restrict any use of the information to criminally investigate or prosecute any alcohol or drug abuse patient.[facility] the event this information is protected by the Federal Confidentiality of Alcohol and Drug Abuse Patient Records regulations: The Federal rules restrict any use of the information to criminally investigate or prosecute any alcohol or drug abuse patient.[facility] the event this information is protected by the Federal Confidentiality of Alcohol and Drug Abuse Patient Records regulations: The Federal rules restrict any use of the information to criminally investigate or prosecute any alcohol or drug abuse patient.[facility] the event this information is protected by the Federal Confidentiality of Alcohol and Drug Abuse Patient Records regulations: The Federal rules restrict any use of the information to criminally investigate or prosecute any alcohol or drug abuse patient.[facility] the event this information is protected by the Federal Confidentiality of Alcohol and Drug Abuse Patient Records regulations: The Federal rules restrict any use of the information to criminally investigate or prosecute any alcohol or drug abuse patient.[facility] the event this information is protected by the Federal Confidentiality of Alcohol and Drug Abuse Patient Records regulations: The Federal rules restrict any use of the information to criminally investigate or prosecute any alcohol or drug abuse patient.[facility] the event this information is protected by the Federal Confidentiality of Alcohol and Drug Abuse Patient Records regulations: The Federal rules restrict any use of the information to criminally investigate or prosecute any alcohol or drug abuse patient.[facility] the event this information is protected by the Federal Confidentiality of Alcohol and Drug Abuse Patient Records regulations: The Federal rules restrict any use of the information to criminally investigate or prosecute any alcohol or drug abuse patient.[facility] the event this information is protected by the Federal Confidentiality of Alcohol and Drug Abuse Patient Records regulations: The Federal rules restrict any use of the information to criminally investigate or prosecute any alcohol or drug abuse patient.[facility] the event this information is protected by the Federal Confidentiality of Alcohol and Drug Abuse Patient Records regulations: The Federal rules restrict any use of the information to criminally investigate or prosecute any alcohol or drug abuse patient.[facility] the event this information is protected by the Federal Confidentiality of Alcohol and Drug Abuse Patient Records regulations: The Federal rules restrict any use of the information to criminally investigate or prosecute any alcohol or drug abuse patient.[facility] the event this information is protected by the Federal Confidentiality of Alcohol and Drug Abuse Patient Records regulations: The Federal rules restrict any use of the information to criminally investigate or prosecute any alcohol or drug abuse patient.[facility] the event this information is protected by the Federal Confidentiality of Alcohol and Drug Abuse Patient Records regulations: The Federal rules restrict any use of the information to criminally investigate or prosecute any alcohol or drug abuse patient.[facility] the event this information is protected by the Federal Confidentiality of Alcohol and Drug Abuse Patient Records regulations: The Federal rules restrict any use of the information to criminally investigate or prosecute any alcohol or drug abuse patient.[facility] Hospital[facility] the event this information is protected by the Federal Confidentiality of Alcohol and Drug Abuse Patient Records regulations: The Federal rules restrict any use of the information to criminally investigate or prosecute any alcohol or drug abuse patient.[facility] Hospital[facility] the event this information is protected by the Federal Confidentiality of Alcohol and Drug Abuse Patient Records regulations: The Federal rules restrict any use of the information to criminally investigate or prosecute any alcohol or drug abuse patient.[facility] HospitalIn the event this information is protected by the Federal Confidentiality of Alcohol and Drug Abuse Patient Records regulations: The Federal rules restrict any use of the information to criminally investigate or prosecute any alcohol or drug abuse patient.[facility] the event this information is protected by the Federal Confidentiality of Alcohol and Drug Abuse Patient Records regulations: The Federal rules restrict any use of the information to criminally investigate or prosecute any alcohol or drug abuse patient.[facility] HospitalIn the event this information is protected by the Federal Confidentiality of Alcohol and Drug Abuse Patient Records regulations: The Federal rules restrict any use of the information to criminally investigate or prosecute any alcohol or drug abuse patient.[facility] HospitalIn the event this information is protected by the Federal Confidentiality of Alcohol and Drug Abuse Patient Records regulations: The Federal rules restrict any use of the information to criminally investigate or prosecute any alcohol or drug abuse patient.[facility] HospitalIn the event this information is protected by the Federal Confidentiality of Alcohol and Drug Abuse Patient Records regulations: The Federal rules restrict any use of the information to criminally investigate or prosecute any alcohol or drug abuse patient.[facility] HospitalIn the event this information is protected by the Federal Confidentiality of Alcohol and Drug Abuse Patient Records regulations: The Federal rules restrict any use of the information to criminally investigate or prosecute any alcohol or drug abuse patient.[facility] HospitalIn the event this information is protected by the Federal Confidentiality of Alcohol and Drug Abuse Patient Records regulations: The Federal rules restrict any use of the information to criminally investigate or prosecute any alcohol or drug abuse patient.[facility] HospitalIn the event this information is protected by the Federal Confidentiality of Alcohol and Drug Abuse Patient Records regulations: The Federal rules restrict any use of the information to criminally investigate or prosecute any alcohol or drug abuse patient.[facility] Reason for Visit (unrecogniz ed section and content) Reason Comments New Knee Pain Reason Comments Radio Gen A21 Specialty Diagnoses / Procedures Referred By Contac t Referred To Contact XR IMAGING Diagnoses Pain Procedures XR KNEE GENERAL 4V AP BOTH/PA BOTH/LAT/MERC BILATERAL RADIOLOGIC EXAM KNEE COMPLETE 4/MORE VIEWS Luma Garcia, KAJAL-C [address] [place] [address] Xr Imaging Referral ID Status Reason Start Date Expiration Date V isits Requested Visits Authorized [id number] Closed Auto-Generate d Referral 01/23/2023 02/22/2024 1 1 Specialty Diagnoses / Procedures Referred By Contac t Referred To Contact CT IMAGING Diagnoses Primary osteoarthritis of left knee Primary osteoarthritis of right knee Anemia, unspecified type Procedures CT KNEE WO IVCON LEFT CT LOWER EXTREMITY W/O CONTRAST MATERIAL Luma Garcia PA-C [address] [id number] [address] Imaging Referral ID Status Reason Start Date Expiration Date V isits Requested Visits Authorized [id number] Closed Auto-Generate d Referral 02/01/2023 03/02/2024 1 [...] EXAMINATION KNEE 3 VIEWS Shaji Bishop MD [address] [place] [address] Xr Imaging [id number] Referral ID Status Reason Start Date Expiration Date V isits Requested Visits Authorized [id number] Closed Auto-Generate d Referral 05/16/2023 03/05/2024 1 1 Reason Comments Subsorter - Other Reason Comments Pre-Op Visit Reason Comments Radiology CT Specialty Diagnoses / Procedures [facility] Diagnoses Primary osteoarthritis of right knee Procedures CT KNEE WO IVCON RIGHT CT LOWER EXTREMITY W/O CONTRAST MATERIAL Shaji Bishop MD [address] [place] [address] [place] [address] Referral ID Status Reason Start Date Expiration Date V isits Requested Visits Authorized [id number] Closed Auto-Generate d Referral 06/12/2023 07/09/2024 1 1 Reason Onset Date Comments Refill Request 09/09/2023 Reason Onset Date Comments Refill Request 09/16/2023 Reason Comments Radiology XR Specialty Diagnoses / Procedures Referred By Sumi t Referred To Contact XR IMAGING Diagnoses S/P total knee arthroplasty, right Procedures XR KNEE POST OP 3V AP/LAT/MERCHANT BILATERAL RADIOLOGIC EXAMINATION KNEE 3 VIEWS Luma Garcia PA-C [address] [place] [address] [place] [address] Referral ID Status Reason Start Date Expiration Date V isits Requested Visits Authorized [id number] Closed Auto-Generate d Referral 10/03/2023 11/01/2024 1 1 Care Teams (unrecognized sec tion and content) Seismic Interpreter Relationship Specialty Start Date End Date Merline Fuller MD PCP - General Family Medicine 08/01/11 Seismic Interpreter Relationship Specialty Start Date End Date Merline Fuller MD PCP - General Family Medicine 08/01/11 Seismic Interpreter Relationship Specialty Start Date End Date Merline Fuller MD PCP - General Family Medicine 08/01/11 Seismic Interpreter Relationship Specialty Start Date End Date Merline Fuller MD PCP - General Family Medicine 08/01/11 Seismic Interpreter Relationship Specialty Start Date End Date Merline Fuller MD PCP - General Family Medicine 08/01/11 Seismic Interpreter Relationship Specialty Start Date End Date Merline Fuller MD PCP - General Family Medicine 08/01/11 Seismic Interpreter Relationship Specialty Start Date End Date Merline Fuller MD PCP - General Family Medicine 08/01/11 Seismic Interpreter Relationship Specialty Start Date End Date Merline Fuller MD PCP - General Family Medicine 08/01/11 Seismic Interpreter Relationship Specialty Start Date End Date Merline Fuller MD PCP - General Family Medicine 08/01/11 Seismic Interpreter Relationship Specialty Start Date End Date Merline Fuller MD PCP - General Family Medicine 08/01/11 Seismic Interpreter Relationship Specialty Start Date End Date Merline Fuller MD PCP - General Family Medicine 08/01/11 Seismic Interpreter Relationship Specialty Start Date End Date Merline Fuller MD PCP - General Family Medicine 08/01/11 Seismic Interpreter Relationship Specialty Start Date End Date Merline Fuller MD PCP - General Family Medicine 08/01/11 Seismic Interpreter Relationship Specialty Start Date End Date Merline Fuller MD PCP - General Family Medicine 08/01/11 Seismic Interpreter Relationship Specialty Start Date End Date Merline Fuller MD PCP - General Family Medicine 08/01/11 Seismic Interpreter Relationship Specialty Start Date End Date Merline Fuller MD PCP - General Family Medicine 08/01/11 Seismic Interpreter Relationship Specialty Start Date End Date Merline Fuller MD PCP - General Family Medicine 08/01/11 Seismic Interpreter Relationship Specialty Start Date End Date Merline Fuller MD PCP - General Family Medicine 08/01/11 Seismic Interpreter Relationship Specialty Start Date End Date Merline Fuller MD PCP - General [facility] 08/01/11 Seismic Interpreter Relationship Specialty Start Date End Date Merline Fuller MD PCP - General [facility] 08/01/11 (unrecognized sect ion and content) No Status Records FoundNo Status Records FoundNo Status Records Found INFORMATION SOURCE (unrecogn ized section and content) DATE CREATED AUTHOR 03/03/2023 [facility] DATE CREATED AUTHOR AUTHOR'S ORGANIZ ATION 04/03/2024 [facility] DATE CREATED AUTHOR AUTHOR'S ORGANIZ ATION 12/23/2024 [facility] DATE CREATED AUTHOR AUTHOR'S ORGANIZ ATION 01/29/2025 [facility] FOR RECORDS PERTAINING TO PATIENTS WHO [...] BE BASED ON THE PRIMARY CLINICAL RECORDS. [facility]. provides no warranty or guarantee of the accuracy or completeness of information in this document.
== END 2025-04-08 20:00 | disposition home or self-care (01) ==
PROVIDERS: Emergency Provider Emergency Medicine; PCP Family Medicine
DX: S16.1XXA Strain of muscle, fascia and tendon at neck level, initial encounter (principal); S39.012A Strain of muscle, fascia and tendon of lower back, initial encounter; M51.369 Other intervertebral disc degeneration, lumbar region without mention of lumbar back pain or lower extremity pain; V89.2XXA Person injured in unspecified motor-vehicle accident, traffic, initial encounter
CPT/HCPCS: 70450; 72125; 72131; 99284